=== PATIENT | female | born 1945 | race Caucasian/White ===

== ENCOUNTER 2016-08-05 09:54 | Inpatient (IN) ==
[2016-08-05] MEDS ORDERED: Vancomycin 1,750 MG in D5% in Water 500 ML IVPB ONE (10:10)
[2016-08-05] MEDS ORDERED: 0.9 % Sodium Chloride 1,000 ML IVC ONE (10:10)
[2016-08-05] MEDS ORDERED: Piperacillin/Tazobactam 3.375 GM in D5% in Water (Mini-Bag+) 100 ML IVPB ONE (10:10)
[2016-08-05] MEDS ORDERED: Levofloxacin 750 MG/150 ML 750 MG/150 ML BAG IVPB ONE (10:10)
[2016-08-05 10:31] LABS: Basophils % 0.2 %; Eosinophils # 0.1 K/mcL (0.0-0.6); Eosinophils % 0.7 %; Hematocrit 25.4 % (35.3-44.9); Immature Granulocytes % 0.9 % (0-4); Lymphocytes # 0.8 K/mcL (0.6-4.6); Lymphocytes % 8.6 %; Mean Corpuscular HGB Conc 31.5 g/dL (31.6-35.5); Mean Corpuscular Hemoglobin 30.1 pg (28.0-33.3); Mean Corpuscular Volume 95.5 fL (83.0-100.0); Mean Platelet Volume 8.6 fL (9.4-12.4); Monocytes # 0.4 K/mcL (0.0-1.3); Monocytes % 4.2 %; Neutrophils # 7.5 K/mcL (1.6-8.9); Nucleated Red Blood Cells 0.2 /100 WBC (0); Platelet Count 432 K/mcL (140-400); Red Blood Count 2.66 M/mcL (3.82-4.97); Red Cell Distribution Width 15.6 % (11.5-14.5); Segmented Neutrophils % 85.4 %
[2016-08-05 10:45] LABS: Calcium 8.7 mg/dL (8.6-10.8); Potassium 4.2 mEq/L (3.5-4.5)
--- NOTE | 2016-08-05 10:45 | Emergency Department Note ---
Disposition Clinical Impression: HCAP (healthcare-associated pneumonia) Sepsis Qualifiers: Sepsis type: sepsis due to unspecified organism Qualified Code(s): A41.9 - Sepsis, unspecified organism Respiratory failure Qualifiers: Chronicity: acute on chronic Respiratory failure complication: unspecified whether with hypoxia or hypercapnia Qualified Code(s): J96.20 - Acute and chronic respiratory failure, unspecified whether with hypoxia or hypercapnia Disposition: Admitted As Inpatient Condition: Serious Referrals: Unassigned,Provider [Non-Partnered Physician] - Forms: ED Satisfaction Letter Time of Disposition: 12:44 General Adult HPI - General Chief complaint: ED Shortness of Breath/Dyspnea Stated complaint: Dyspnea Time Seen by Provider: 08/05/16 10:00 Mode of arrival: EMS Limitations: altered mental status Nursing Notes Reviewed: Yes Vital Signs Reviewed: Yes - History of Present Illness HPI Narrative: 71-year-old female with multiple comorbidities presents to the emergency department for evaluation of altered mental status and presumed pneumonia. Patient was recently discharged from the hospital with pneumonia to a local [facility] facility where they found the patient today to be altered, febrile and hypoxic at 87% on 4 L. Patient is currently on antibiotics as an outpatient ([facility]). EMS transported the patient on BiPAP which improved her symptoms. Patient is a very poor historian and does not add much history. She states that she "feels awful" and hurts all over. Exam is remarkable for a ill-appearing elderly female resting in bed in mild respiratory distress. Patient is awake but does not respond to questions appropriately. Lungs are diminished bilaterally with coarse rhonchi noted throughout. Patient's noted to be 95% on 4 L currently. Heart is tachycardic but regular at 102 bpm. Patient was afebrile at 98.7F. Presumed sepsis. Will follow sepsis protocol and patient will likely be admitted back to the hospital for further evaluation. Pt Subjective Complaint: Altered mental status Onset (ago): unknown Pain Scale: 10 Associated symptoms: Reports: cough, fever/chills, shortness of breath, weakness Treatments Prior to Arrival: none - Related Data Home Medications Medication Instructions Recorded Confirmed Cholecalciferol (Vitamin D3) 50,000 unit PO QWEEK 05/30/16 08/05/16 [Vitamin D3] FLUoxetine HCl [Prozac] 20 mg PO DAILY 05/30/16 08/05/16 Gabapentin [Neurontin] 300 mg PO BID 05/30/16 08/05/16 Hydralazine HCl 100 mg PO Q8H 05/30/16 08/05/16 Insulin ASPART [NovoLOG] 1 - 5 unit SQ ACHS 05/30/16 08/05/16 Isosorbide MONOnitrate (24 HR) 30 mg PO DAILY 05/30/16 08/05/16 [Imdur] Aspirin 81 mg PO DAILY 07/10/16 08/05/16 Insulin DETEMIR [Levemir] 50 unit SQ QAM 07/10/16 08/05/16 Insulin DETEMIR [Levemir] 55 unit SQ HS 07/10/16 08/05/16 Atorvastatin Calcium [Lipitor] 80 mg PO DAILY 07/31/16 08/05/16 Budesonide/Formoterol 160/4.5 2 puff IH BID 07/31/16 08/05/16 [Symbicort 160/4.5] ClonazePAM [Klonopin] 1 mg PO TID PRN 07/31/16 08/05/16 Clopidogrel [Plavix] 75 mg PO DAILY 07/31/16 08/05/16 Fluconazole [Diflucan] 100 mg PO DAILY MDD stop 1-4-17 07/31/16 08/05/16 Furosemide [Lasix] 40 mg PO DAILY 07/31/16 08/05/16 Levothyroxine [Synthroid] 25 mcg PO DAILY 07/31/16 08/05/16 Loperamide [Imodium] 2 mg PO Q4HR PRN 07/31/16 08/05/16 Pantoprazole Sodium [Protonix] 40 mg PO DAILY 07/31/16 08/05/16 Saline Nasal [place] [[place] Nasal 2 spray NS TID 07/31/16 08/05/16 [place]] Tiotropium [Spiriva] 18 mcg IH DAILY 07/31/16 08/05/16 Previous Rx's Medication Instructions Recorded CloNIDine HCl [Clonidine HCl] 0.2 mg PO BID #60 tab 06/04/16 Acetaminophen [Tylenol] 650 mg PO Q6HR PRN #0 tablet 07/20/16 Ipratropium/Albuterol Neb [Duoneb] 3 ml IH [id number] inhsol 07/20/16 Tramadol HCl [Ultram] 50 mg PO QID PRN #10 tab 07/20/16 Levofloxacin 500 mg PO DAILY #7 solution MDD 08/03/16 stop 08-11-16 Allergies Allergy/AdvReac Type Severity Reaction Status Date / Time No Known Allergies Allergy Verified 07/24/16 16:19 Limitations: ROS unobtainable due to patients medical condition (Altered mental status) Past Medical History - Past Medical History Medical history: Reports: asthma, CHF, COPD, CVA, diabetes, hypertension, renal disease, other Surgical history: Reports: no surgical history Psychiatric history: Reports: no psych history INSTRUMENTATION AND CONTROLS TECHNICIAN history: Reports: no INSTRUMENTATION AND CONTROLS TECHNICIAN history - Social History Smoking Status: Never smoker Smokeless Tobacco Status: No Alcohol use: Reports: none Drug use: Reports: none Physical Exam - General Limitations: altered mental status General appearance: alert, lethargic, in distress - Head Head exam: atraumatic, normocephalic, normal inspection - Chest Chest inspection: Present: normal inspection, symmetric chest wall rise - Respiratory Respiratory exam: Present: respiratory distress, other (Coarse rhonchi with tachypnea) - Cardiovascular Cardiovascular exam: Present: normal rhythm, tachycardia, normal heart sounds - Abdominal Exam Abdominal exam: Present: soft, Non-Tender. Absent: tenderness, distention, guarding, rebound, rigidity - Neurological Exam Neurological exam: Present: alert - Skin Skin exam: Present: warm, dry, intact, normal color Course - Reevaluation(s) Reevaluation #1: Chest x-ray showing bilateral infiltrates. Patient meets sepsis criteria. She is comfortable and tolerating BiPAP. O2 saturations 97%. Heart rate was 88. Patient will be admitted to the hospital for healthcare associated pneumonia and sepsis. Time: 12:43 Vital Signs Temperature 98.2 F 08/05/16 09:55 Pulse Rate 102 08/05/16 09:55 Respiratory Rate 20 08/05/16 09:55 Blood Pressure 131/90 08/05/16 09:55 O2 Sat by Pulse Oximetry 97 08/05/16 09:55 Temperature 98.2 F 08/05/16 09:55 Pulse Rate 89 08/05/16 11:44 Respiratory Rate 16 08/05/16 11:44 Blood Pressure 125/51 08/05/16 11:44 O2 Sat by Pulse Oximetry 97 08/05/16 11:44 Oxygen Delivery Oxygen Delivery Bipap Medical Decision Making - Medical Records Medical records reviewed: Yes I reviewed the patient's medical records. - Lab Data Lab results reviewed: Yes I reviewed the patient's lab results. Result diagrams: 08/05/16 10:26 08/05/16 10:26 Lab Results 08/05/16 08/05/16 08/05/16 Range/Units 10:26 10:26 10:26 WBC 8.8 (4.3-11.1) K/mcL RBC 2.66 L (3.82-4.97) M/mcL Hgb 8.0 L (11.5-15.4) g/dL Hct 25.4 L (35.3-44.9) % MCV 95.5 (83.0-100.0) fL MCH 30.1 (28.0-33.3) pg MCHC 31.5 L (31.6-35.5) g/dL RDW 15.6 H (11.5-14.5) % Plt Count 432 H (140-400) K/mcL MPV 8.6 L (9.4-12.4) fL Immature Gran % 0.9 (0-4) % Seg Neutrophils % 85.4 % Lymphocytes % 8.6 % Monocytes % 4.2 % Eosinophils % 0.7 % Basophils % 0.2 % Neutrophils # 7.5 (1.6-8.9) K/mcL Lymphocytes # 0.8 (0.6-4.6) K/mcL Monocytes # 0.4 (0.0-1.3) K/mcL Eosinophils # 0.1 (0.0-0.6) K/mcL Basophils # 0.0 (0.0-0.2) K/mcL Nucleated RBCs/100 WBC 0.2 H (0) /100 WBC Sodium 141 (136-145) mEq/L Potassium 4.2 (3.5-4.5) mEq/L Chloride 102 (98-109) mEq/L Carbon Dioxide 29 (19-29) mEq/L BUN 74 H (7-20) mg/dL Creatinine 2.28 H (0.57-1.11) mg/dL Est GFR ( Amer) 26 L (> 60) Est GFR (Non-Af Amer) 21 L (> 60) BUN/Creatinine Ratio 32 H (6-26) Glucose 250 H (70-99) mg/dL Calculated Osmolality 322 H (280-300) Lactic Acid 1.7 (0.5-2.2) mmol/L Calcium 8.7 (8.6-10.8) mg/dL Troponin I (0-0.03) ng/mL Urine Color (Yellow) Urine Clarity (Clear) Urine pH (5.0-8.0) pH Units Ur Specific [place] (1.010-1.025) Urine Protein (Neg-Trace) mg/dL Urine Glucose (UA) (Normal) mg/dL Urine Ketones (Negative) mg/dL Urine Blood (Negative) Urine Nitrite (Negative) Urine Bilirubin (Negative) Urine Urobilinogen (Normal) mg/dL Ur Leukocyte Esterase (Negative) Urine Microscopic RBC (0-3) per hpf Urine Microscopic WBC (0-3) per hpf Ur Squamous Epith Cells (None-Few) per lpf Amorphous Sediment (Few) Urine Bacteria (None-Few) per hpf Urine Mucus (Few) Urine Yeast (None Seen) per hpf Ur Culture Indicated? (NO) 08/05/16 08/05/16 08/05/16 Range/Units 10:26 10:31 12:13 WBC (4.3-11.1) K/mcL RBC (3.82-4.97) M/mcL Hgb (11.5-15.4) g/dL Hct (35.3-44.9) % MCV (83.0-100.0) fL MCH (28.0-33.3) pg MCHC (31.6-35.5) g/dL RDW (11.5-14.5) % Plt Count (140-400) K/mcL MPV (9.4-12.4) fL Immature Gran % (0-4) % Seg Neutrophils % % Lymphocytes % % Monocytes % % Eosinophils % % Basophils % % Neutrophils # (1.6-8.9) K/mcL Lymphocytes # (0.6-4.6) K/mcL Monocytes # (0.0-1.3) K/mcL Eosinophils # (0.0-0.6) K/mcL Basophils # (0.0-0.2) K/mcL Nucleated RBCs/100 WBC (0) /100 WBC Sodium (136-145) mEq/L Potassium (3.5-4.5) mEq/L Chloride (98-109) mEq/L Carbon Dioxide (19-29) mEq/L BUN (7-20) mg/dL Creatinine (0.57-1.11) mg/dL Est GFR ( Amer) (> 60) Est GFR (Non-Af Amer) (> 60) BUN/Creatinine Ratio (6-26) Glucose (70-99) mg/dL Calculated Osmolality (280-300) Lactic Acid 1.2 (0.5-2.2) mmol/L Calcium (8.6-10.8) mg/dL Troponin I 0.12 H* (0-0.03) ng/mL Urine Color Yellow (Yellow) Urine Clarity Cloudy A (Clear) Urine pH 5.5 (5.0-8.0) pH Units Ur Specific [place] 1.013 (1.010-1.025) Urine Protein 100 H (Neg-Trace) mg/dL Urine Glucose (UA) Normal (Normal) mg/dL Urine Ketones Negative (Negative) mg/dL Urine Blood Negative (Negative) Urine Nitrite Negative (Negative) Urine Bilirubin Negative (Negative) Urine Urobilinogen Normal (Normal) mg/dL Ur Leukocyte Esterase Small H (Negative) Urine Microscopic RBC 0-3 (0-3) per hpf Urine Microscopic WBC 5-15 H (0-3) per hpf Ur Squamous Epith Cells Moderate H (None-Few) per lpf Amorphous Sediment Few (Few) Urine Bacteria Moderate H (None-Few) per hpf Urine Mucus Few (Few) Urine Yeast Moderate H (None Seen) per hpf Ur Culture Indicated? YES A (NO) - Radiology Data Radiology results reviewed: Yes I reviewed the patient's radiology results. - EKG Data EKG #1 EKG attestation: Yes I reviewed and interpreted this EKG. Rate: tachycardia Rhythm: NSR [place]/QRS: normal Interpretation: no acute changes Attestation Statement - Attestation Attestation: I examined this patient and my medical decision-making was reviewed with the Resident Physician. I agree with the documented findings, disposition and treatment plan as described except to the extent set forth below. HCAP with severe sepsis, AMS - looks sick. Has CKD with stable creatinine, but elevated BUN/Cr ratio and looks clinically dehydrated. Given IVF along with HCAP abx in the ED. Will discuss with consultants re ICU vs. stepdown.
[2016-08-05 10:46] LABS: Bilirubin,Urine Negative (Negative); Blood,Urine Negative (Negative); Clarity,Urine Cloudy (Clear); Color,Urine Yellow (Yellow); Glucose,Urine (UA) Normal (Normal); Ketones,Urine Negative (Negative); Leukocyte Esterase,Urine Small (Negative); Nitrite,Urine Negative (Negative); PH,Urine 5.5 pH Units (5.0-8.0); Protein,Urine 100 mg/dL (Neg-Trace); Specific Gravity,Urine 1.013 (1.010-1.025); Urobilinogen,Urine Normal (Normal)
[2016-08-05 10:57] LABS: RBC,Urine 0-3 per hpf (0-3)
[2016-08-05 10:58] LABS: Amorphous Sediment,Urine Few (Few); Bacteria,Urine Moderate per hpf (None-Few); Squamous Epithelial Cell,Urine Moderate per lpf (None-Few)
[2016-08-05 10:59] LABS: Mucus,Urine Few (Few); Yeast,Urine Moderate per hpf (None Seen)
[2016-08-05] MEDS ORDERED: 0.9 % Sodium Chloride 1,000 ML IV ONE (11:36)
[2016-08-05] MEDS ORDERED: Acetaminophen 325 MG TABLET PO PRN (13:58)
[2016-08-05] MEDS ORDERED: Naloxone 0.4 MG/ML INJ IVP PRN (13:58)
[2016-08-05] MEDS ORDERED: clonazePAM 1 MG TABLET PO PRN (14:04)
[2016-08-05] MEDS ORDERED: hydrALAZINE 25 MG TABLET PO SCH (14:15)
[2016-08-05] MEDS ORDERED: D5% in Water 1,000 ML IV PRN (14:29)
[2016-08-05] MEDS ORDERED: *HR* Dextrose 50 % in Water (Syg) 50 ML SYRINGE IVP PRN (14:29)
[2016-08-05] MEDS ORDERED: Dextrose Gel 15 GM PO PRN ×2 (14:29)
--- NOTE | 2016-08-05 14:52 | Internal Med History&Physical ---
Date of Encounter: 08/05/16 Time of Encounter: 13:30 Assessment and Plan (1) Acute on chronic respiratory failure with hypoxemia Current visit: Yes Status: Acute 1 respiratory decline is multifactorial .patient was hypoxic on presentation with SPO2 87% was placed on BiPAP SPO2 improved to 97%. She has a past history of COPD and is oxygen dependent and recent treatment for H CAP as well as she has standing history of chronic diastolic heart failure. We will continue with BiPAP and titrate to maintain SPO2 greater than 92% 2 continue with antibiotics and breathing treatments will add Lasix IV to diurese (2) Acute on chronic diastolic CHF (congestive heart failure) Current visit: No Status: Acute 1 clinically the patient appears fluid overloaded-she has +2 pitting edema to lower extremities. 1 edema to upper extremities she is hypoxic -we will stop oral Lasix and start on IV Lasix twice a day 2 we will monitor intake and output daily weights 3 place patient on fluid restriction 4 low sodium diet (3) HCAP (healthcare-associated pneumonia) Current visit: Yes Status: Acute 1 patient was recently treated for H. She resides in a senior living continues to have symptoms of cough fever hypoxia. Blood cultures have been obtained we will obtain sputum culture will initiate vancomycin and Zosyn and Levaquin 2 bronchodilators 3 oxygen to maintain SPO2 greater 92% 4 incentive spirometry (4) Sepsis Current visit: Yes 1 patient presented with low SPO2 tachycardia altered mentation-possible source pneumonia 2 blood cultures obtained empirically started on vancomycin and Levaquin for HCAP Coverage 3 we will monitor CBC we will obtain sputum and urine cultures (5) Anemia Current visit: No Status: Acute 1 presently stable hemoglobin 8 . We will monitor CBC and transfuse as needed Qualifiers: Anemia type: unspecified type Qualified Code(s): D64.9 - Anemia, unspecified (6) COPD (chronic obstructive pulmonary disease) Current visit: No Status: Acute 1 we will continue with oxygen and bronchodilators Qualifiers: COPD type: unspecified COPD Qualified Code(s): J44.9 - Chronic obstructive pulmonary disease, unspecified (7) DVT prophylaxis Current visit: No Status: Acute 1 heparin subcutaneous (8) Hypertension Current visit: No Status: Acute 1 presently stable we will continue with hydralazine and clonidine goal is to maintain systolic less than 140 Qualifiers: Hypertension type: essential hypertension Qualified Code(s): I10 - Essential (primary) hypertension (9) Type 2 diabetes mellitus with diabetic chronic kidney disease Current visit: No Status: Acute 1 Accu-Cheks before meals at bedtime continue with Lantus insulin scale coverage maintain postprandial less than 180 2 diabetic diet Qualifiers: Diabetes mellitus longterm insulin use: with longterm use Chronic kidney disease stage: stage 4 (severe) Qualified Code(s): E11.22 - Type 2 diabetes mellitus with diabetic chronic kidney disease; N18.4 - Chronic kidney disease, stage 4 (severe); Z79.4 - intermediate (current) use of insulin (10) CKD (chronic kidney disease) stage 4, GFR 15-29 ml/min Current visit: No Status: Chronic 1 patient's creatinine is 2.28. Start this is close to her baseline which is around 2. We will continue to monitor creatinine 2 avoid nephrotoxins really dose antibiotics 3 monitor intake and output 4 daily weights Internal Medicine - H&P: HPI Chief complaint: Dyspnea Admitted From: Long-term Nursing Facility Plans for Post Hospital Care: Transfer [facility] History of present illness: Ms. Dsouza is a 71 year old female past history see [facility] for hypertension diabetes type 2 CHF COPD oxygen dependent hypothyroid, anemia. The patient was just recently admitted to this facility and was discharged on August 03 after pain treated for healthcare acquired pneumonia as well as anemia. She was transferred back to the senior living in which she resides and was found by the staff today with altered mental status febrile and hypoxic with SPO2 87% on 4 L. Patient was currently receiving oral antibiotics Levaquin for continued HCAP Treatment. She was transported to the hospital by EMS on BiPAP. Upon arrival to the ED her SPO2 had improved to 97%. According to ER records the patient did appear to be in mild respiratory distress she was awake however did not respond to questions appropriately.. She was tachycardic on presentation heart rate of 102 she was afebrile 98.7. Sepsis protocol was followed blood cultures were obtained patient was initiated on vancomycin ,Levaquin and Zosyn.. Her white count was 8.8 chest extremities reveal continued pneumonia she was admitted for further workup and evaluation. Presently the assessment patient appears weak she is on BiPAP sats 97%. Wants BiPAP removed patient really drops down to 90% she is dyspneic on conversation and pulses to catch her breath. Patient states that since she was discharged she continued to feel weak this individual to eat and was experiencing increasing cough , shortness of breath and fever . She denies any sputum production at this time. She denies any chest pain abdominal pain nausea vomiting or diarrhea. At this time patient appears to be hemodynamically stable while on BiPAP Reviewed case with Dr Luna who agrees with case Past Med Surg Social Fam HX - Past Medical History Medical history: asthma, CHF, COPD, CVA, diabetes, hypertension, renal disease, other Psychiatric history: no psych history - Past Surgical History Surgical History: no surgical history - Social History Smoking Status: Never smoker Smokeless Tobacco Status: No Alcohol use: none Drug use: none - Family History Father Living Status: Hx Family Cancer: Yes Mother Living Status: Hx Family Cardiac Disorders: No Hx Family Respiratory Disorders: No Hx Family Cancer: Yes Hx Family GI Disorders: No Hx Family Endocrine Disorder: No Hx Family Neuromuscular Disorders: No Hx Family Neurologic Disorders: No Hx Family HEENT Disorders: No Hx Family Autoimmune Disorders: No Internal Medicine - H&P: Meds Cholecalciferol (Vitamin D3) [Vitamin D3] 50,000 unit PO QWEEK 05/30/16 [History ] FLUoxetine HCl [Prozac] 20 mg PO DAILY 05/30/16 [History] Gabapentin [Neurontin] 300 mg PO BID 05/30/16 [History] Hydralazine HCl 100 mg PO Q8H 05/30/16 [History] Insulin ASPART [NovoLOG] 1 - 5 unit SQ ACHS 05/30/16 [History] Isosorbide MONOnitrate (24 HR) [Imdur] 30 mg PO DAILY 05/30/16 [History] CloNIDine HCl [Clonidine HCl] 0.2 mg PO BID #60 tab 06/04/16 [Rx] Aspirin 81 mg PO DAILY 07/10/16 [History] Insulin DETEMIR [Levemir] 50 unit SQ QAM 07/10/16 [History] Insulin DETEMIR [Levemir] 55 unit SQ HS 07/10/16 [History] Acetaminophen [Tylenol] 650 mg PO Q6HR PRN #0 tablet 07/20/16 [Rx] Ipratropium/Albuterol Neb [Duoneb] 3 ml IH [id number] inhsol 07/20/16 [Rx] Tramadol HCl [Ultram] 50 mg PO QID PRN #10 tab 07/20/16 [Rx] Atorvastatin Calcium [Lipitor] 80 mg PO DAILY 07/31/16 [History] Budesonide/Formoterol 160/4.5 [Symbicort 160/4.5] 2 puff IH BID 07/31/16 [ History] ClonazePAM [Klonopin] 1 mg PO TID PRN 07/31/16 [History] Clopidogrel [Plavix] 75 mg PO DAILY 07/31/16 [History] Fluconazole [Diflucan] 100 mg PO DAILY MDD stop 1-4-17 07/31/16 [History] Furosemide [Lasix] 40 mg PO DAILY 07/31/16 [History] Levothyroxine [Synthroid] 25 mcg PO DAILY 07/31/16 [History] Loperamide [Imodium] 2 mg PO Q4HR PRN 07/31/16 [History] Pantoprazole Sodium [Protonix] 40 mg PO DAILY 07/31/16 [History] Saline Nasal [place] [[place] Nasal [place]] 2 spray NS TID 07/31/16 [History] Tiotropium [Spiriva] 18 mcg IH DAILY 07/31/16 [History] Levofloxacin 500 mg PO DAILY #7 solution MDD stop 1-02-1808/03/16 [Rx] Allergies No Known Allergies Allergy (Verified 07/24/16 16:19) All Systems PM: A 10-system review of systems was performed and is negative for pertinent findings except as documented above in the HPI. - Constitutional Constitutional: fatigue, malaise, weakness - Cardiovascular Cardiovascular ROS IM: dyspnea, edema - Respiratory Respiratory: cough, dyspnea - Gastrointestinal Gastrointestinal: no abdominal pain, no diarrhea, no hematemesis, no hematochezia, no melena, no nausea, no vomiting - Genitourinary Genitourinary: no change in urinary stream, no dysuria, no flank pain, no hematuria - Musculoskeletal Musculoskeletal ROS IM: no numbness, no tingling - Integumentary Integumentary IM: no rash, no unusual bruising - Neurological Neurological ROS: no confusion, no convulsions, no focal weakness, no numbness, no tingling, no tremor(s) - Constitutional Vitals: Temp Pulse Resp BP Pulse Ox 98.2 F 86 16 136/95 97 08/05/16 13:39 08/05/16 13:14 08/05/16 13:39 08/05/16 13:39 08/05/16 13:14 General appearance: Present: A&O X 2, morbidly obese, answers questions appropriately Exam: Patient appears weak and chronically ill - Head Head exam: Present: atraumatic, normocephalic - Neck Neck exam general surgery: Present: supple, trachea midline. Absent: lymphadenopathy - Respiratory Respiratory exam: Present: respiratory distress, rhonchi. Absent: accessory muscle use, rales, wheezes Additional comments: Mild respiratory distress with scattered coarse rhonchi throughout - Cardiovascular Cardiovascular exam: Present: RRR, +S1, +S2. Absent: diastolic murmur, gallop, rubs, systolic murmur - GI/Abdominal GI/Abdominal exam: Present: normal bowel sounds, soft, no peritoneal signs. Absent: distended, tenderness - Extremities Exam Extremities exam: Present: pedal edema, warm, radial pulses palpable and symetrical. Absent: calf tenderness, cyanotic Additional comments: +2 pitting edema up to ankles, +1 pitting edema to hands bilaterally - Neurological Exam Neurological exam: Present: alert, CN II-XII intact, no focal deficits. Absent : pronater drift, facial droop, speech deficit Additional comments: Oriented to name and place - Skin Skin exam: Present: dry, intact Additional comments: Ecchymosis noted to abdomen Internal Med - H&P Results - Labs CBC & Chem 7: 08/05/16 10:26 08/05/16 10:26 - Diagnostic Studies Chest x-ray Additional comments: Per radiology report bilateral infiltrates left side greater than right concerning for pneumonia
[2016-08-05] MEDS: Cholecalciferol (D-3) 1,000 UNIT TABLET PO SCH (15:18)
[2016-08-05] MEDS: Furosemide 40 MG/4 ML VIAL IVP SCH ×2 (15:18→16:15)
[2016-08-05] MEDS: Saline Nasal Spray 44 ML BOTTLE NS SCH ×2 (15:35→21:20)
[2016-08-05] MEDS: Ipratropium/Albuterol Neb 3 ML IH SCH ×2 (15:43→21:08)
[2016-08-05] MEDS: hydrALAZINE 25 MG TABLET PO SCH (16:16)
[2016-08-05] MEDS: Piperacillin/Tazobactam 3.375 GM in D5% in Water (Mini-Bag+) 100 ML IVPB SCH (16:40)
[2016-08-05] MEDS: *HR* Heparin 5,000 UNIT/ML VIAL SQ SCH (16:40)
[2016-08-05] MEDS: Insulin LISPRO 300 UNITS/3 ML VIAL SQ SCH ×2 (17:54→21:22)
[2016-08-05] MEDS ORDERED: cloNIDine HCl 0.1 MG TABLET PO SCH (21:00)
[2016-08-05] MEDS ORDERED: INSULIN DETEMIR 55 UNIT SQ SCH (21:00)
[2016-08-05] MEDS: Budesonide/Formoterol 160/4.5 MDI IH SCH (21:08)
[2016-08-05] MEDS: cloNIDine HCl 0.1 MG TABLET PO SCH (21:19)
[2016-08-05] MEDS: Gabapentin 300 MG CAPSULE PO SCH (21:19)
[2016-08-05] MEDS: Insulin DETEMIR 100 UNIT/ML X5UNITS SQ SCH (21:31)
[2016-08-06] MEDS: Piperacillin/Tazobactam 3.375 GM in D5% in Water (Mini-Bag+) 100 ML IVPB SCH ×3 (00:52→16:24)
[2016-08-06] MEDS: hydrALAZINE 25 MG TABLET PO SCH ×3 (00:56→16:25)
[2016-08-06] MEDS: Ipratropium/Albuterol Neb 3 ML IH SCH ×2 (04:09→10:41)
[2016-08-06 05:02] LABS: Calcium 8.5 mg/dL (8.6-10.8); Potassium 4.2 mEq/L (3.5-4.5)
[2016-08-06 05:20] LABS: Hematocrit 24.4 % (35.3-44.9); Hemoglobin 7.3 g/dL (11.5-15.4); Immature Granulocytes % 1.4 % (0-4); Mean Corpuscular HGB Conc 29.9 g/dL (31.6-35.5); Mean Corpuscular Hemoglobin 29.3 pg (28.0-33.3); Neutrophils # 5.1 K/mcL (1.6-8.9); Platelet Count 443 K/mcL (140-400); Red Blood Count 2.49 M/mcL (3.82-4.97); Red Cell Distribution Width 15.5 % (11.5-14.5); Segmented Neutrophils % 79.5 %
[2016-08-06 05:21] LABS: Basophils % 0.3 %; Eosinophils # 0.1 K/mcL (0.0-0.6); Eosinophils % 2.2 %; Lymphocytes # 0.8 K/mcL (0.6-4.6); Lymphocytes % 12.6 %; Monocytes # 0.3 K/mcL (0.0-1.3)
[2016-08-06] MEDS: *HR* Heparin 5,000 UNIT/ML VIAL SQ SCH ×2 (05:45→17:28)
[2016-08-06] MEDS ORDERED: Vancomycin (wt based) 1,000 MG VIAL IVPB SCH (09:00)
[2016-08-06] MEDS ORDERED: NON-FORMULARY MEDICATION 1 EACH EACH (Insulin Detemir 50 UNIT) SQ SCH (09:00)
[2016-08-06] MEDS ORDERED: Levofloxacin 750 MG/150 ML 750 MG/150 ML BAG IVPB SCH (09:00)
[2016-08-06] MEDS: Aspirin 81 MG TAB.CHEW PO SCH (09:02)
[2016-08-06] MEDS: Levothyroxine 25 MCG TABLET PO SCH (09:02)
[2016-08-06] MEDS: Cholecalciferol (D-3) 1,000 UNIT TABLET PO SCH (09:02)
[2016-08-06] MEDS: FLUoxetine 20 MG CAPSULE PO SCH (09:02)
[2016-08-06] MEDS: Gabapentin 300 MG CAPSULE PO SCH ×2 (09:02→20:58)
[2016-08-06] MEDS: Insulin DETEMIR 100 UNIT/ML X5UNITS SQ SCH ×2 (09:03→20:58)
[2016-08-06] MEDS: Insulin LISPRO 300 UNITS/3 ML VIAL SQ SCH ×4 (09:12→20:59)
[2016-08-06] MEDS: Saline Nasal Spray 44 ML BOTTLE NS SCH ×3 (09:13→20:58)
[2016-08-06] MEDS: Furosemide 40 MG/4 ML VIAL IVP SCH ×2 (10:09→16:24)
[2016-08-06] MEDS: Isosorbide MONOnitrate (24 HR) 30 MG TAB.ER.24H PO SCH (10:09)
[2016-08-06] MEDS: cloNIDine HCl 0.1 MG TABLET PO SCH ×2 (10:09→20:58)
[2016-08-06] MEDS: Budesonide/Formoterol 160/4.5 MDI IH SCH ×2 (10:41→21:46)
[2016-08-06] MEDS: Tiotropium 18 MCG inhalation IH SCH (10:41)
[2016-08-06] MEDS: *HR* HYDROcodone/Acet 5/325 mg TABLET PO PRN (11:44)
[2016-08-06] MEDS ORDERED: Aminoglycoside Consult 1 EACH MC ONE (12:30)
[2016-08-06] MEDS ORDERED: Ipratropium/Albuterol Neb 3 ML IH PRN (13:03)
--- NOTE | 2016-08-06 14:33 | Electrocardiograph Report ---
[facility] Test Date: 2016-08-05 Pat Name: Violeta Dsouza Department: [id number] Room: 2A33 Gender: F Law Professor: : [id number] Requested By: Gurjit Chen Order Number: [id number] Reading MD: Willis Johnson MD Measurements Intervals [place] Rate: 99 P: -66 PA: 197 QRS: 16 QRSD: 100 T: 142 QT: 354 QTc: 411 Interpretive Statements SINUS RHYTHM WITH OCCASIONAL SUPRAVENTRICULAR PREMATURE COMPLEXES ANTERIOR MYOCARDIAL INFARCTION, PROBABLY OLD Electronically Signed On 08-06-16 14:32:58 EST by Willis Johnson MD
--- NOTE | 2016-08-06 15:42 | Internal Med Progress Note ---
Date of Encounter: 08/06/16 Time of Encounter: 15:39 - Assessment and plan (1) Acute on chronic respiratory failure with hypoxemia Current Visit: Yes Status: Acute Assessment and plan: possible 2/2 HCAP that has never resolved, it is likely that she keeps aspirating as she is always lying in the bed. will continue the IV antibiotics for now, may also have some component of volume overload when she came in however now she does not look like she has volume overload. will also continue the IV lasix for now. monitor sats. (2) HCAP (healthcare-associated pneumonia) Current Visit: Yes Status: Acute Assessment and plan: cxr shows persistent and multifocal pneumonia. will continue IV antibiotics for now, chest physiotherapy, will follow sputum and blood cx as well. aspiration precautions, speech saw the patient and placed on mechanically altered diet. (3) Anemia of chronic disease Current Visit: No Status: Acute Assessment and plan: has chronic anemia with normal MCV, most likely anemia of chronic disease 2/2 CKD. has had GI eval in the past and has had EGD that showed no active bleeding. bleeding was most likely supposed to be 2/2 ENT causes which has now resolved , had a recent ENT eval. (4) COPD (chronic obstructive pulmonary disease) Current Visit: No Status: Acute Assessment and plan: not in exacerbation. Qualifiers: COPD type: unspecified COPD Qualified Code(s): J44.9 - Chronic obstructive pulmonary disease, unspecified (5) Diastolic CHF, chronic Current Visit: No Status: Chronic Assessment and plan: she may have some component of diastolic heart failure. has b/l pitting edema with elevated BNP. will continue the 40 Iv BID lasix. will keep on fluid restriction diet. - Time Spent With Patient 25 - 35 minutes - Subjective Interval history: Patient seen at the bedside, denies any complaints today. Reports that she was short of breath when she came in. Now appears comfortable and lying in bed without any distress. she needs bedside PT/OT . - Constitutional Vitals: Temp Pulse Resp BP Pulse Ox 97.4 F L 76 16 118/36 95 08/06/16 11:14 08/06/16 11:14 08/06/16 11:14 08/06/16 11:14 08/06/16 11:14 General appearance: Present: A&O X 2, morbidly obese, answers questions appropriately Exam: General appearance: no acute distress ENT: oropharynx moist Neck: supple Effort: normal Auscultation: bilateral: diminished breath sounds, no wheezing, mild b/l basal creptns Cardiovascular: regular rate and rhythm Gastrointestinal: normoactive bowel sounds normal mental status, non-focal exam Internal Medicine: Result - Labs CBC & Chem 7: 08/06/16 04:03 08/06/16 04:03 Labs: Short CBC 08/06/16 Range/Units 04:03 WBC 6.4 (4.3-11.1) K/mcL Hgb 7.3 L (11.5-15.4) g/dL Hct 24.4 L (35.3-44.9) % Plt Count 443 H (140-400) K/mcL Neutrophils # 5.1 (1.6-8.9) K/mcL BMP 08/06/16 04:03 Sodium 141 Potassium 4.2 Chloride 104 Carbon Dioxide 27 BUN 70 H Creatinine 2.18 H Glucose 146 H Calcium 8.5 L Cardiac Enzymes 08/05/16 08/05/16 Range/Units 16:48 22:31 Troponin I 0.13 H* 0.11 H* (0-0.03) ng/mL Consult Discharge Plan - Plan Referrals: NO,PCP [Primary Care Provider] - (Pt is ECF/Signatures )
[2016-08-07] MEDS: hydrALAZINE 25 MG TABLET PO SCH ×4 (00:14→17:05)
[2016-08-07] MEDS: Piperacillin/Tazobactam 3.375 GM in D5% in Water (Mini-Bag+) 100 ML IVPB SCH ×2 (00:14→09:38)
[2016-08-07] MEDS: Ondansetron 4 MG/2 ML VIAL IVP PRN (05:03)
[2016-08-07 07:29] LABS: Basophils % 0.4 %; Eosinophils # 0.2 K/mcL (0.0-0.6); Eosinophils % 2.1 %; Hematocrit 25.5 % (35.3-44.9); Hemoglobin 7.8 g/dL (11.5-15.4); Immature Granulocytes % 1.1 % (0-4); Lymphocytes # 0.8 K/mcL (0.6-4.6); Lymphocytes % 9.5 %; Mean Corpuscular HGB Conc 30.6 g/dL (31.6-35.5); Mean Corpuscular Hemoglobin 29.7 pg (28.0-33.3); Monocytes # 0.4 K/mcL (0.0-1.3); Monocytes % 4.4 %; Neutrophils # 6.5 K/mcL (1.6-8.9); Nucleated Red Blood Cells 0.3 /100 WBC (0); Platelet Count 483 K/mcL (140-400); Red Blood Count 2.63 M/mcL (3.82-4.97); Red Cell Distribution Width 15.5 % (11.5-14.5); Segmented Neutrophils % 82.5 %
[2016-08-07 07:37] LABS: Potassium 4.1 mEq/L (3.5-4.5)
[2016-08-07] MEDS: Tiotropium 18 MCG inhalation IH SCH (07:40)
[2016-08-07] MEDS: Budesonide/Formoterol 160/4.5 MDI IH SCH ×2 (07:40→20:23)
[2016-08-07] MEDS: *HR* Heparin 5,000 UNIT/ML VIAL SQ SCH ×2 (07:51→17:05)
[2016-08-07] MEDS: Gabapentin 300 MG CAPSULE PO SCH ×2 (09:36→23:35)
[2016-08-07] MEDS: Insulin LISPRO 300 UNITS/3 ML VIAL SQ SCH ×4 (09:36→23:35)
[2016-08-07] MEDS: Furosemide 40 MG/4 ML VIAL IVP SCH ×2 (09:36→17:05)
[2016-08-07] MEDS: Aspirin 81 MG TAB.CHEW PO SCH (09:36)
[2016-08-07] MEDS: FLUoxetine 20 MG CAPSULE PO SCH (09:37)
[2016-08-07] MEDS: Cholecalciferol (D-3) 1,000 UNIT TABLET PO SCH (09:37)
[2016-08-07] MEDS: Isosorbide MONOnitrate (24 HR) 30 MG TAB.ER.24H PO SCH (09:37)
[2016-08-07] MEDS: Levothyroxine 25 MCG TABLET PO SCH (09:37)
[2016-08-07] MEDS: cloNIDine HCl 0.1 MG TABLET PO SCH ×3 (09:37→23:35)
[2016-08-07] MEDS: Levofloxacin 750 MG/150 ML 750 MG/150 ML BAG IVPB SCH (09:41)
[2016-08-07] MEDS: Insulin DETEMIR 100 UNIT/ML X5UNITS SQ SCH (10:01)
[2016-08-07] MEDS: Saline Nasal Spray 44 ML BOTTLE NS SCH ×3 (10:02→23:35)
--- NOTE | 2016-08-07 15:29 | Internal Med Progress Note ---
Date of Encounter: 08/07/16 Time of Encounter: 15:21 - Assessment and plan (1) Acute on chronic respiratory failure with hypoxemia Current Visit: Yes Status: Acute Assessment and plan: possible 2/2 HCAP that has never resolved, she does not have fever or leucocytosis. will continue the IV levofloxacin for now and stop the vanco and zosyn, may also have some component of volume overload when she came in however now she does not look like she has volume overload. will change lasix to home dose. monitor sats. (2) HCAP (healthcare-associated pneumonia) Current Visit: Yes Status: Acute Assessment and plan: cxr shows persistent and multifocal pneumonia. its persistent since last admission, hence will stop vanco and zosyn, chest physiotherapy, will follow sputum and blood cx as well. aspiration precautions, speech saw the patient and placed on mechanically altered diet. (3) Anemia of chronic disease Current Visit: No Status: Acute Assessment and plan: has chronic anemia with normal MCV, most likely anemia of chronic disease 2/2 CKD. has had GI eval in the past and has had EGD that showed no active bleeding. bleeding was most likely supposed to be 2/2 ENT causes which has now resolved , had a recent ENT eval. (4) COPD (chronic obstructive pulmonary disease) Current Visit: No Status: Acute Assessment and plan: not in exacerbation. Qualifiers: COPD type: unspecified COPD Qualified Code(s): J44.9 - Chronic obstructive pulmonary disease, unspecified (5) Diastolic CHF, chronic Current Visit: No Status: Chronic Assessment and plan: she may have some component of diastolic heart failure. has b/l pitting edema with elevated BNP, does not have acute pulmonary edema now. will keep lasix 40 mg daily. will keep on fluid restriction diet. - Time Spent With Patient 25 - 35 minutes - Subjective Interval history: Patient seen at the bedside, denies any complaints today. Now appears comfortable and lying in bed without any distress. she needs bedside PT/OT . - Constitutional Vitals: Temp Pulse Resp BP Pulse Ox 97.3 F L 80 19 142/41 100 08/07/16 11:30 08/07/16 11:30 08/07/16 11:30 08/07/16 11:30 08/07/16 14:32 General appearance: Present: A&O X 2, morbidly obese, answers questions appropriately Exam: General appearance: no acute distress ENT: oropharynx moist Neck: supple Effort: normal Auscultation: bilateral: diminished breath sounds, no wheezing, mild b/l basal creptns Cardiovascular: regular rate and rhythm Gastrointestinal: normoactive bowel sounds normal mental status, non-focal exam Internal Medicine: Result - Labs CBC & Chem 7: 08/07/16 07:05 08/07/16 07:05 Labs: Short CBC 08/07/16 Range/Units 07:05 WBC 7.9 (4.3-11.1) K/mcL Hgb 7.8 L (11.5-15.4) g/dL Hct 25.5 L (35.3-44.9) % Plt Count 483 H (140-400) K/mcL Neutrophils # 6.5 (1.6-8.9) K/mcL BMP 08/07/16 07:05 Sodium 140 Potassium 4.1 Chloride 102 Carbon Dioxide 27 BUN 68 H Creatinine 2.03 H Glucose 45 L Calcium 9.0 Consult Discharge Plan - Plan Referrals: NO,PCP [Primary Care Provider] - (Pt is ECF/Signatures )
[2016-08-07] MEDS ORDERED: Insulin DETEMIR 100 UNIT/ML X5UNITS SQ SCH (21:00)
[2016-08-08] MEDS: hydrALAZINE 25 MG TABLET PO SCH ×3 (01:23→16:09)
[2016-08-08] MEDS: *HR* Heparin 5,000 UNIT/ML VIAL SQ SCH ×2 (05:24→17:09)
[2016-08-08] MEDS: Insulin LISPRO 300 UNITS/3 ML VIAL SQ SCH ×3 (08:15→17:03)
[2016-08-08] MEDS: Budesonide/Formoterol 160/4.5 MDI IH SCH ×2 (08:18→22:00)
[2016-08-08] MEDS: Tiotropium 18 MCG inhalation IH SCH (08:18)
[2016-08-08 08:19] LABS: Basophils % 0.4 %; Eosinophils # 0.1 K/mcL (0.0-0.6); Eosinophils % 2.7 %; Hematocrit 23.1 % (35.3-44.9); Hemoglobin 7.1 g/dL (11.5-15.4); Immature Granulocytes % 1.6 % (0-4); Lymphocytes # 0.8 K/mcL (0.6-4.6); Mean Corpuscular HGB Conc 30.7 g/dL (31.6-35.5); Mean Corpuscular Volume 97.5 fL (83.0-100.0); Mean Platelet Volume 8.6 fL (9.4-12.4); Monocytes # 0.3 K/mcL (0.0-1.3); Monocytes % 5.7 %; Neutrophils # 3.8 K/mcL (1.6-8.9); Platelet Count 367 K/mcL (140-400); Red Blood Count 2.37 M/mcL (3.82-4.97); Red Cell Distribution Width 15.4 % (11.5-14.5); Segmented Neutrophils % 74.6 %
[2016-08-08 08:46] LABS: Calcium 8.7 mg/dL (8.6-10.8); Potassium 4.2 mEq/L (3.5-4.5)
[2016-08-08] MEDS: Furosemide 40 MG/4 ML VIAL IVP SCH ×2 (09:15→16:09)
[2016-08-08] MEDS: Isosorbide MONOnitrate (24 HR) 30 MG TAB.ER.24H PO SCH (09:16)
[2016-08-08] MEDS: Cholecalciferol (D-3) 1,000 UNIT TABLET PO SCH (09:16)
[2016-08-08] MEDS: Levothyroxine 25 MCG TABLET PO SCH (09:16)
[2016-08-08] MEDS: cloNIDine HCl 0.1 MG TABLET PO SCH ×2 (09:16→20:54)
[2016-08-08] MEDS: Gabapentin 300 MG CAPSULE PO SCH ×2 (09:16→20:54)
[2016-08-08] MEDS: FLUoxetine 20 MG CAPSULE PO SCH (09:16)
[2016-08-08] MEDS: Aspirin 81 MG TAB.CHEW PO SCH (09:16)
[2016-08-08] MEDS: Saline Nasal Spray 44 ML BOTTLE NS SCH ×3 (09:17→20:56)
[2016-08-08] MEDS: Insulin DETEMIR 100 UNIT/ML X5UNITS SQ SCH ×2 (09:24→20:55)
[2016-08-08] MEDS ORDERED: 0.9 % Sodium Chloride 500 ML ONE (13:09)
--- NOTE | 2016-08-08 17:05 | Internal Med Progress Note ---
Date of Encounter: 08/08/16 Time of Encounter: 17:03 - Assessment and plan (1) Acute on chronic respiratory failure with hypoxemia Current Visit: Yes Status: Acute Assessment and plan: possible 2/2 HCAP that has never resolved, she does not have fever or leucocytosis. will continue the IV levofloxacin for now , may also have some component of volume overload when she came in however now she does not look like she has volume overload. will change lasix to home dose. monitor sats. (2) HCAP (healthcare-associated pneumonia) Current Visit: Yes Status: Acute Assessment and plan: cxr shows persistent and multifocal pneumonia. its persistent since last admission, hence will stop vanco and zosyn, chest physiotherapy, will follow sputum and blood cx as well. aspiration precautions, speech saw the patient and placed on mechanically altered diet. (3) Anemia of chronic disease Current Visit: No Status: Acute Assessment and plan: has chronic anemia with normal MCV, most likely anemia of chronic disease 2/2 CKD. has had GI eval in the past and has had EGD that showed no active bleeding. bleeding was most likely supposed to be 2/2 ENT causes which has now resolved , had a recent ENT eval. reports that she feels very weak, will transfuse 1 unit, hb at 7.1 today. (4) COPD (chronic obstructive pulmonary disease) Current Visit: No Status: Acute Assessment and plan: not in exacerbation. Qualifiers: COPD type: unspecified COPD Qualified Code(s): J44.9 - Chronic obstructive pulmonary disease, unspecified (5) Diastolic CHF, chronic Current Visit: No Status: Chronic Assessment and plan: she may have some component of diastolic heart failure. has b/l pitting edema with elevated BNP, does not have acute pulmonary edema now. will keep lasix 40 mg daily. will keep on fluid restriction diet. - Time Spent With Patient 25 - 35 minutes - Subjective Interval history: Patient seen at the bedside, reports that she feels very weak. chrissy in bed without any distress, non compliant to rehab and keeps lying in the bed, very hard to get her up to the side of the bed, she says ever since she broke her left leg, she has been bed bound and has reportedly found to have refused rehab therapy. she needs bedside PT/OT, plan to get her to the side of bed today with support. - Constitutional Vitals: Temp Pulse Resp BP Pulse Ox 98.2 F 87 16 124/69 91 L 08/08/16 15:48 08/08/16 15:48 08/08/16 15:48 08/08/16 15:48 08/08/16 15:48 General appearance: Present: A&O X 3, morbidly obese, answers questions appropriately Exam: neck- supple chest- b/l decreased breath sounds at the bases. CVS-s1 and s2, no m/r/g abd-soft, non tender , bs are present ext-b/l mild lower leg edema neuro-alert and awake, no focal neuro defecits. musculo- unable to raise her left leg, no swelling or redness of the knee joint. Internal Medicine: Result - Labs CBC & Chem 7: 08/08/16 08:09 08/08/16 08:09 Labs: Short CBC 08/08/16 Range/Units 08:09 WBC 5.1 (4.3-11.1) K/mcL Hgb 7.1 L (11.5-15.4) g/dL Hct 23.1 L (35.3-44.9) % Plt Count 367 (140-400) K/mcL Neutrophils # 3.8 (1.6-8.9) K/mcL BMP 08/08/16 08:09 Sodium 138 Potassium 4.2 Chloride 101 Carbon Dioxide 29 BUN 66 H Creatinine 2.03 H Glucose 68 L Calcium 8.7 Consult Discharge Plan - Plan Referrals: NO,PCP [Primary Care Provider] - (Pt is ECF/Signatures )
[2016-08-09] MEDS: Insulin LISPRO 300 UNITS/3 ML VIAL SQ SCH ×5 (02:34→22:29)
[2016-08-09] MEDS: hydrALAZINE 25 MG TABLET PO SCH ×3 (02:35→17:09)
[2016-08-09] MEDS: *HR* Heparin 5,000 UNIT/ML VIAL SQ SCH ×2 (06:30→17:08)
[2016-08-09 06:33] LABS: Basophils % 0.4 %; Eosinophils # 0.2 K/mcL (0.0-0.6); Eosinophils % 2.2 %; Hemoglobin 7.6 g/dL (11.5-15.4); Immature Granulocytes % 1.9 % (0-4); Lymphocytes # 1.1 K/mcL (0.6-4.6); Lymphocytes % 16.8 %; Mean Corpuscular HGB Conc 31.7 g/dL (31.6-35.5); Mean Corpuscular Volume 94.9 fL (83.0-100.0); Mean Platelet Volume 8.9 fL (9.4-12.4); Monocytes # 0.3 K/mcL (0.0-1.3); Monocytes % 4.8 %; Nucleated Red Blood Cells 0.3 /100 WBC (0); Platelet Count 391 K/mcL (140-400); Red Blood Count 2.53 M/mcL (3.82-4.97); Red Cell Distribution Width 16.4 % (11.5-14.5); Segmented Neutrophils % 73.9 %
[2016-08-09 06:49] LABS: Calcium 8.5 mg/dL (8.6-10.8); Potassium 4.1 mEq/L (3.5-4.5)
[2016-08-09] MEDS: Gabapentin 300 MG CAPSULE PO SCH ×2 (08:55→22:31)
[2016-08-09] MEDS: Cholecalciferol (D-3) 1,000 UNIT TABLET PO SCH (08:55)
[2016-08-09] MEDS: Levothyroxine 25 MCG TABLET PO SCH (08:55)
[2016-08-09] MEDS: FLUoxetine 20 MG CAPSULE PO SCH (08:55)
[2016-08-09] MEDS: Aspirin 81 MG TAB.CHEW PO SCH (08:55)
[2016-08-09] MEDS: Furosemide 40 MG/4 ML VIAL IVP SCH ×2 (08:56→17:08)
[2016-08-09] MEDS: Isosorbide MONOnitrate (24 HR) 30 MG TAB.ER.24H PO SCH (08:56)
[2016-08-09] MEDS: cloNIDine HCl 0.1 MG TABLET PO SCH ×2 (08:56→22:30)
[2016-08-09] MEDS: Levofloxacin 750 MG/150 ML 750 MG/150 ML BAG IVPB SCH (08:56)
[2016-08-09] MEDS: Saline Nasal Spray 44 ML BOTTLE NS SCH ×3 (08:59→22:31)
[2016-08-09] MEDS: Insulin DETEMIR 100 UNIT/ML X5UNITS SQ SCH ×2 (09:04→22:31)
[2016-08-09] MEDS: *HR* HYDROcodone/Acet 5/325 mg TABLET PO PRN (10:52)
[2016-08-09] MEDS: Budesonide/Formoterol 160/4.5 MDI IH SCH ×2 (11:00→21:35)
[2016-08-09] MEDS: Tiotropium 18 MCG inhalation IH SCH (11:00)
[2016-08-09] MEDS ORDERED: Saliva Stimulant 100ml BOTTLE PO PRN (12:52)
--- NOTE | 2016-08-09 16:06 | Internal Med Progress Note ---
Date of Encounter: 08/09/16 Time of Encounter: 16:02 - Assessment and plan (1) Acute on chronic respiratory failure with hypoxemia Current Visit: Yes Status: Acute Assessment and plan: possible 2/2 HCAP that has never resolved, she does not have fever or leucocytosis. will continue the IV levofloxacin for now and complete for total of 7 days , repeat CXR tomm. also has diastolic heart failure but euvolemic now, on home dose of lasix. planned to dc to ECF with respiratory therapy facilities as she keeps coming back with desaturation. monitor sats. (2) HCAP (healthcare-associated pneumonia) Current Visit: Yes Status: Acute Assessment and plan: cxr showed multifocal pneumonia. its persistent since last admission, hence will stop vanco and zosyn, chest physiotherapy, blood cx shows no growth. aspiration precautions, speech saw the patient and placed on mechanically altered diet , able to swallow ok. Continue levofloxacin for a total of 7 days. (3) Anemia of chronic disease Current Visit: No Status: Acute Assessment and plan: has chronic anemia with normal MCV, most likely anemia of chronic disease 2/2 CKD. has had GI eval in the past and has had EGD that showed no active bleeding. bleeding was most likely supposed to be 2/2 ENT causes which has now resolved , had a recent ENT eval. reports that she feels very weak, was transfused 1 unit yesterday, hemoglobin 7.62 days, if need be may need another unit of transfusion. Patient needs to follow up with renal as outpatient, needs anaresp injection. (4) COPD (chronic obstructive pulmonary disease) Current Visit: No Status: Acute Assessment and plan: not in exacerbation. Qualifiers: COPD type: unspecified COPD Qualified Code(s): J44.9 - Chronic obstructive pulmonary disease, unspecified (5) Diastolic CHF, chronic Current Visit: No Status: Chronic Assessment and plan: she may have some component of diastolic heart failure. has b/l pitting edema with elevated BNP, does not have acute pulmonary edema now. will keep lasix 40 mg daily. also may have component of JOSEFINA , continue CPAP at night. will keep on fluid restriction diet. - Time Spent With Patient 25 - 35 minutes - Subjective Interval history: Patient seen at the bedside, appears to be more fresh today, agrees to work with PT. lying in bed without any distress, non compliant to rehab and keeps lying in the bed, very hard to get her up to the side of the bed, she says ever since she broke her left leg, she has been bed bound and has reportedly found to have refused rehab therapy. was able to get to the side of her bed, sating fine on 3 L nasal cannula, CPAP at night. - Constitutional Vitals: Temp Pulse Resp BP Pulse Ox 98.5 F 86 18 146/76 97 08/09/16 11:27 08/09/16 11:27 08/09/16 11:27 08/09/16 11:27 08/09/16 11:27 General appearance: Present: A&O X 3, morbidly obese, answers questions appropriately Exam: General appearance: Present: A&O X 3, morbidly obese, answers questions appropriately Exam: General appearance: no acute distress ENT: oropharynx moist Neck: supple Effort: normal Auscultation: bilateral: diminished breath sounds, no wheezing, mild b/l basal creptns Cardiovascular: regular rate and rhythm Gastrointestinal: normoactive bowel sounds normal mental status, non-focal exam Internal Medicine: Result - Labs CBC & Chem 7: 08/09/16 06:13 08/09/16 06:13 Labs: Short CBC 08/09/16 Range/Units 06:13 WBC 6.7 (4.3-11.1) K/mcL Hgb 7.6 L (11.5-15.4) g/dL Hct 24.0 L (35.3-44.9) % Plt Count 391 (140-400) K/mcL Neutrophils # 5.0 (1.6-8.9) K/mcL BMP 08/09/16 06:13 Sodium 140 Potassium 4.1 Chloride 102 Carbon Dioxide 29 BUN 63 H Creatinine 2.02 H Glucose 111 H Calcium 8.5 L Consult Discharge Plan - Plan Referrals: NO,PCP [Primary Care Provider] - (Pt is ECF/Signatures )
[2016-08-10] MEDS: hydrALAZINE 25 MG TABLET PO SCH ×3 (01:02→17:14)
[2016-08-10] MEDS: *HR* Heparin 5,000 UNIT/ML VIAL SQ SCH ×2 (05:52→17:14)
[2016-08-10] MEDS: Insulin LISPRO 300 UNITS/3 ML VIAL SQ SCH ×4 (08:32→19:52)
[2016-08-10] MEDS: Cholecalciferol (D-3) 1,000 UNIT TABLET PO SCH (08:39)
[2016-08-10] MEDS: FLUoxetine 20 MG CAPSULE PO SCH (08:39)
[2016-08-10] MEDS: Gabapentin 300 MG CAPSULE PO SCH ×2 (08:39→20:05)
[2016-08-10] MEDS: Levothyroxine 25 MCG TABLET PO SCH (08:39)
[2016-08-10] MEDS: Insulin DETEMIR 100 UNIT/ML X5UNITS SQ SCH ×2 (08:40→20:05)
[2016-08-10] MEDS: Aspirin 81 MG TAB.CHEW PO SCH (08:40)
[2016-08-10] MEDS: Furosemide 40 MG/4 ML VIAL IVP SCH ×2 (08:40→17:14)
[2016-08-10] MEDS: Saline Nasal Spray 44 ML BOTTLE NS SCH ×3 (08:41→20:05)
[2016-08-10] MEDS: Isosorbide MONOnitrate (24 HR) 30 MG TAB.ER.24H PO SCH ×2 (10:33→11:56)
[2016-08-10] MEDS: cloNIDine HCl 0.1 MG TABLET PO SCH ×2 (10:33→20:05)
[2016-08-10] MEDS: *HR* HYDROcodone/Acet 5/325 mg TABLET PO PRN ×2 (10:35→15:39)
[2016-08-10] MEDS: Tiotropium 18 MCG inhalation IH SCH (12:31)
[2016-08-10] MEDS: Budesonide/Formoterol 160/4.5 MDI IH SCH ×2 (12:31→21:24)
[2016-08-10] MEDS: Ipratropium/Albuterol Neb 3 ML IH SCH ×3 (12:31→21:24)
[2016-08-10] MEDS ORDERED: Furosemide 40 MG/4 ML VIAL IVP ONE (12:47)
--- NOTE | 2016-08-10 13:17 | Internal Med Progress Note ---
Date of Encounter: 08/10/16 Time of Encounter: 09:00 - Assessment and plan (1) Pneumonia Current Visit: No Status: Acute Assessment and plan: possilble faciliity acquired continue broad spectrum antibiotics, incentive pulmonary toilette Qualifiers: Pneumonia type: aspiration pneumonia Aspiration pneumonia type: unspecified Laterality: bilateral Lung location: lower lobe of lung Qualified Code(s): J69.0 - Pneumonitis due to inhalation of food and vomit (2) CHF exacerbation Current Visit: Yes Status: Acute Assessment and plan: start irineo and aldactone seems decompensated follow renal function and lytes Qualifiers: Congestive heart failure type: systolic Qualified Code(s): I50.23 - Acute on chronic systolic (congestive) heart failure (3) Debilitated Current Visit: Yes Status: Chronic Assessment and plan: PT/OT (4) CKD (chronic kidney disease) stage 3, GFR 30-59 ml/min Current Visit: Yes Status: Chronic Assessment and plan: at base line - Subjective Interval history: Pt Feels somehow better but still SOB - Constitutional Vitals: Temp Pulse Resp BP Pulse Ox 97.8 F 78 18 135/65 98 08/10/16 11:21 08/10/16 11:21 08/10/16 11:21 08/10/16 11:21 08/10/16 11:21 General appearance: Present: A&O X 3, morbidly obese, answers questions appropriately - Respiratory Respiratory exam: Present: decreased breath sounds Additional comments: rales and scattered ronchi in both lung bases - Cardiovascular Cardiovascular exam: Present: RRR, +S1, +S3 (increase P2) - GI/Abdominal GI/Abdominal exam: Present: normal bowel sounds, soft - Extremities Exam Additional comments: edema +++ Internal Medicine: Result - Labs CBC & Chem 7: 08/09/16 06:13 08/09/16 06:13 Consult Discharge Plan - Plan Referrals: NO,PCP [Primary Care Provider] - (Pt is ECF/Signatures )
--- NOTE | 2016-08-10 13:58 | Palliative - Consult Note ---
<Damián Jean - Last Filed: 08/10/16 14:23> Date of Encounter: 08/10/16 Time of Encounter: 13:30 - Assessment and Plan (1) Patient is full code Current Visit: Yes Status: Acute Assessment and plan: -EF 35%, o2 stat 98% on 3L, non ambulatory. Lives at [facility]. Happy with care there. -Patient wishes to remain full code. 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 Does not want palliative nor hospice care nor does the patient meet criteria for palliative or hospice care -POA is her daughter, Sissy Faith. . There is no proper documentation of POA, [facility] social work is aware and working on getting it resolved. (2) Acute on chronic respiratory failure with hypoxemia Current Visit: Yes Status: Acute Assessment and plan: -Patient resting calmly in bed on 3 L of oxygen. Saturation at 98% -Does admit to shortness of breath while at rest, however symptom is improving compared to yesterday -Suggest adding prednisone to home therapy medication. Palliative-CN HPI - Data of Consult Patient: new to practice Consult date: 08/10/16 Requesting Physician: Melissa Conley Primary Care Provider: PCP NO. Under physician's care at [facility] - Consult Narrative Reason for consult: Discussed CODE STATUS, health care/hospice History of present illness: Ms. Dsouza is a 71 year old female with frequent admissions since May for CHF and pneumonia. Today, patient states that she feels better. Does admit to shortness of breath, nonproductive cough, feeling cold. Denies chest pain, fevers, nausea, vomiting, abdominal pain. Workup thus far is recurrent pneumonia vs CHF exacerbation. Denies smoking, quit 4 years ago. She currently lives at [facility], since May 21, 2016 because her daughters could no longer take care of her because she is nonambulatory with a right broken leg. Broken leg not repaired because "her bones are too brittle" Her recurrent shortness of breath is relieved by sitting up in the chair. In the usp, she is on continual oxygen at 2L and CPAP, bipap during the day periodically. Her POA is her daughter, Sissy Faith . There is currently no documentation, patient agrees on the importance of having documentation of a POA. CODE STATUS discussed at great length by myself and Dr. Forbes, patient wishes to remain full code. However, She does not wish to have group home intubation. Patient does not wish to be on hospice nor palliative care. CC: Sofía Porras Past Med Surg Social Fam HX - Past Medical History Medical history: asthma, CHF, COPD, CVA, diabetes, hypertension, renal disease, other Psychiatric history: no psych history - Past Surgical History Surgical History: no surgical history - Social History Smoking Status: Never smoker Smokeless Tobacco Status: No Alcohol use: none Drug use: none - Family History Father Living Status: Hx Family Cancer: Yes Mother Living Status: Hx Family Cardiac Disorders: No Hx Family Respiratory Disorders: No Hx Family Cancer: Yes Hx Family GI Disorders: No Hx Family Endocrine Disorder: No Hx Family Neuromuscular Disorders: No Hx Family Neurologic Disorders: No Hx Family HEENT Disorders: No Hx Family Autoimmune Disorders: No Medications and Allergies Cholecalciferol (Vitamin D3) [Vitamin D3] 50,000 unit PO QWEEK 05/30/16 [History ] FLUoxetine HCl [Prozac] 20 mg PO DAILY 05/30/16 [History] Gabapentin [Neurontin] 300 mg PO BID 05/30/16 [History] Hydralazine HCl 100 mg PO Q8H 05/30/16 [History] Insulin ASPART [NovoLOG] 1 - 5 unit SQ ACHS 05/30/16 [History] Isosorbide MONOnitrate (24 HR) [Imdur] 30 mg PO DAILY 05/30/16 [History] CloNIDine HCl [Clonidine HCl] 0.2 mg PO BID #60 tab 06/04/16 [Rx] Aspirin 81 mg PO DAILY 07/10/16 [History] Insulin DETEMIR [Levemir] 50 unit SQ QAM 07/10/16 [History] Insulin DETEMIR [Levemir] 55 unit SQ HS 07/10/16 [History] Acetaminophen [Tylenol] 650 mg PO Q6HR PRN #0 tablet 07/20/16 [Rx] Ipratropium/Albuterol Neb [Duoneb] 3 ml IH [id number] inhsol 07/20/16 [Rx] Tramadol HCl [Ultram] 50 mg PO QID PRN #10 tab 07/20/16 [Rx] Atorvastatin Calcium [Lipitor] 80 mg PO DAILY 07/31/16 [History] Budesonide/Formoterol 160/4.5 [Symbicort 160/4.5] 2 puff IH BID 07/31/16 [ History] ClonazePAM [Klonopin] 1 mg PO TID PRN 07/31/16 [History] Clopidogrel [Plavix] 75 mg PO DAILY 07/31/16 [History] Fluconazole [Diflucan] 100 mg PO DAILY MDD stop 1--07/31/16 [History] Furosemide [Lasix] 40 mg PO DAILY 07/31/16 [History] Levothyroxine [Synthroid] 25 mcg PO DAILY 07/31/16 [History] Loperamide [Imodium] 2 mg PO Q4HR PRN 07/31/16 [History] Pantoprazole Sodium [Protonix] 40 mg PO DAILY 07/31/16 [History] Saline Nasal [place] [Ixl Nasal [place]] 2 spray NS TID 07/31/16 [History] Tiotropium [Spiriva] 18 mcg IH DAILY 07/31/16 [History] Levofloxacin 500 mg PO DAILY #7 solution MDD stop 1--08/03/16 [Rx] Allergies No Known Allergies Allergy (Verified 07/24/16 16:19) - EENT Ears, nose, mouth, throat: other - Cardiovascular Cardiovascular ROS: as per HPI - Respiratory Respiratory: as per HPI - Psychiatric Psychiatric general PM: no homicidal ideation, no suicidal ideation Palliative Care-Exam - Constitutional Vitals: Temp Pulse Resp BP Pulse Ox 97.8 F 78 18 135/65 98 08/10/16 11:21 08/10/16 11:21 08/10/16 11:21 08/10/16 11:21 08/10/16 11:21 - Other Additional findings: Patient appears comfortable in the room, watching TV. Alert and oriented 3. Patient has mild cough, nonproductive. She able to complete sentences without becoming short of breath. currently on 3 L of nasal cannula and tolerating it well. She does have a crackling and gurgling sound when she speaks. No chest pain with palpation, heart rate regular rate and rhythm no murmurs. Lungs: crackles noticed in the bilateral bases with Decreased breath sounds. Normal bowel sounds, no pain with palpation.+3/4 pitting edema in the lower extremities. No cyanosis or ulcers seen. Internal Medicine - CN: Reslt - Labs CBC & Chem 7: 08/09/16 06:13 08/09/16 06:13 Consult Discharge Plan - Plan Referrals: NO,PCP [Primary Care Provider] - (Pt is ECF/Signatures ) <Kailash Forbes - Last Filed: 08/11/16 07:05> Date of Encounter: 08/10/16 Time of Encounter: 13:30 Palliative-CN HPI - Data of Consult Requesting Physician: Sofía Porras Primary Care Provider: PCP NO - Consult Narrative History of present illness: Ms. Dsouza is a 71 year old female CC: Sofía Porras - Constitutional Constitutional ROS PAL: no decreased appetite, no anorexia - EENT Eyes: no discharge, no pain Ears: no ear discharge, no ear pain Ears, nose, mouth, throat: no dysphagia, no epistaxis, no mouth pain, no nasal congestion - Cardiovascular Cardiovascular ROS: as per HPI - Respiratory Respiratory: as per HPI - Gastrointestinal Gastrointestinal: as per HPI - Genitourinary Palliative ROS female: as per HPI - Musculoskeletal Musculoskeletal ROS IM: as per HPI - Integumentary ROS Integumentary: no skin ulcer, no sores, no wounds - Neurological Neurological ROS: no headache(s), no lack of coordination, no paresthesias, no radicular pain - Endocrine Endocrine IM: as per HPI Palliative Care-Exam - Constitutional Vitals: Temp Pulse Resp BP Pulse Ox 98.2 F 76 20 135/69 98 08/11/16 04:26 08/11/16 04:26 08/11/16 04:26 08/11/16 04:26 08/11/16 04:26 General appearance: Present: no acute distress - Head Head Exam: Present: atraumatic, normal inspection - Eye Eye exam: Present: EOMI, normal appearance - ENT ENT exam: Present: mucous membranes moist - Neck Neck exam: Present: normal inspection - Respiratory Respiratory exam: Present: decreased breath sounds - Cardiovascular Cardiovascular exam: Present: RRR - GI/Abdominal Exam GI/Abdominal exam: Present: normal bowel sounds, soft. Absent: tenderness - Extremities Exam Extremities exam: Present: normal inspection. Absent: pedal edema, tenderness - Neurological Exam Neurological exam: Present: alert, oriented X3 - Psychiatric Psychiatric exam: Present: normal affect, normal mood. Absent: agitated, anxious - Skin Skin exam: Present: dry, warm Internal Medicine - CN: Reslt - Labs CBC & Chem 7: 08/09/16 06:13 08/11/16 05:24 Labs: BMP 08/11/16 05:24 Sodium 138 Potassium 4.2 Chloride 104 Carbon Dioxide 26 BUN 52 H Creatinine 1.72 H Glucose 134 H Calcium 8.6 - Impressions Impressions Chest X-Ray 08/10/16 11:50 IMPRESSION: Patchy airspace opacities bilaterally, mildly improved in the left hemithorax and mildly progressed at the right lung base, likely related to multifocal pneumonia versus pulmonary edema. Trace left pleural effusion. Borderline cardiomegaly, stable. D/ / James Evans MD / James Evans MD Interpreting Provider: James Evans MD - Attending Attestation I examined this patient and my medical decision-making was reviewed with the VINYL CUTTER/PA/Advanced Practice Nurse/Resident Physician. I agree with the documented findings, disposition and treatment plan as described except to the extent set forth below. Palliative Quality Palliative Quality: Screen for Code Status: Yes, Screen for Goals of Care: Yes, Screen for Pain: Yes, If Pain Regimen Started, Initiate Bowel Regimen: NA, Screen for Nausea/Vomitting: Yes
[2016-08-10] MEDS: Ondansetron 4 MG/2 ML VIAL IVP PRN (19:43)
[2016-08-10] MEDS: Sennosides/Docusate Sodium TABLET PO SCH (20:05)
[2016-08-11] MEDS: hydrALAZINE 25 MG TABLET PO SCH ×3 (01:10→17:25)
[2016-08-11] MEDS: Ipratropium/Albuterol Neb 3 ML IH SCH ×4 (03:43→21:14)
[2016-08-11] MEDS: *HR* Heparin 5,000 UNIT/ML VIAL SQ SCH (05:02)
[2016-08-11 06:14] LABS: Calcium 8.6 mg/dL (8.6-10.8); Potassium 4.2 mEq/L (3.5-4.5)
--- NOTE | 2016-08-11 07:43 | Palliative Progress Note ---
Date of Encounter: 08/11/16 Time of Encounter: 07:20 - Assessment and plan (1) Dyspnea Current Visit: No Status: Acute Assessment and plan: Better this morning, not on BiPAP just doing well on nasal cannula. A new current medications per hospitalist team Qualifiers: Qualified Code(s): R06.00 - Dyspnea, unspecified (2) Goals of care, counseling/discussion Current Visit: Yes Status: Acute Assessment and plan: Patient has elected to be full code and as of today she continues to elect this. I will discussion has been undertaken. She understands the risks and benefits of this. Her goals of care are to return to the [place] [facility], he would like to be treated aggressively for this problem with her lungs. At this time it does not appear to me that she is maxed out in terms of cardio or pulmonary. There are no pulmonary function studies for me to refer to. Her ejection fraction is over 30%. In at this time she does not meet hospice criteria. (3) Acute on chronic respiratory failure with hypoxemia Current Visit: Yes Status: Acute (4) HCAP (healthcare-associated pneumonia) Current Visit: Yes Status: Acute Assessment and plan: Afebrile, no growth in blood cultures, normal white count when last checked. Continue current antibiotics per hospitalist team. (5) CKD (chronic kidney disease) stage 3, GFR 30-59 ml/min Current Visit: Yes Status: Chronic Assessment and plan: Stable at this time. Continue current medications. - Time Spent With Patient Total time spent is greater than 50% in coordination of care (as documented) at patient's floor/unit and/or counseling patient: - Subjective Interval history: The patient is breathing well off BiPAP has no complaint of pain, her breathing is better. He had no questions about our discussions of yesterday. - Constitutional Vitals: Abnormal lab results RBC 2.53 M/mcL (3.82-4.97) L 08/09/16 06:13 Hgb 7.6 g/dL (11.5-15.4) L 08/09/16 06:13 Hct 24.0 % (35.3-44.9) L 08/09/16 06:13 RDW 16.4 % (11.5-14.5) H 08/09/16 06:13 MPV 8.9 fL (9.4-12.4) L 08/09/16 06:13 Nucleated RBCs/100 WBC 0.3 /100 WBC (0) H 08/09/16 06:13 BUN 52 mg/dL (7-20) H 08/11/16 05:24 Creatinine 1.72 mg/dL (0.57-1.11) H 08/11/16 05:24 Est GFR ( Amer) 36 (> 60) L 08/11/16 05:24 Est GFR (Non-Af Amer) 29 (> 60) L 08/11/16 05:24 BUN/Creatinine Ratio 30 (6-26) H 08/11/16 05:24 Glucose 134 mg/dL (70-99) H 08/11/16 05:24 POC Glucose 134 (58-89) H 08/11/16 06:58 Calculated Osmolality 302 (280-300) H 08/11/16 05:24 Troponin I 0.11 ng/mL (0-0.03) H* 08/05/16 22:31 Urine Clarity Cloudy (Clear) A 08/05/16 10:31 Urine Protein 100 mg/dL (Neg-Trace) H 08/05/16 10:31 Ur Leukocyte Esterase Small (Negative) H 08/05/16 10:31 Urine Microscopic WBC 5-15 per hpf (0-3) H 08/05/16 10:31 Ur Squamous Epith Cells Moderate per lpf (None-Few) H 08/05/16 10:31 Urine Bacteria Moderate per hpf (None-Few) H 08/05/16 10:31 Urine Yeast Moderate per hpf (None Seen) H 08/05/16 10:31 Ur Culture Indicated? YES (NO) A 08/05/16 10:31 General appearance: Present: no acute distress - Head Head exam: Present: atraumatic, normal inspection - Eye Eye exam: Present: normal appearance - ENT ENT exam: Present: mucous membranes moist - Respiratory Respiratory exam: Present: decreased breath sounds - Cardiovascular Cardiovascular exam: Present: RRR - GI/Abdominal GI/Abdominal exam: Present: normal bowel sounds, soft. Absent: tenderness - Extremities Exam Extremities exam: Present: normal inspection. Absent: pedal edema, tenderness - Neurological Exam Neurological exam: Present: alert, oriented X3 - Psychiatric Psychiatric exam: Present: normal affect, normal mood. Absent: agitated, anxious - Skin Skin exam: Present: dry, warm Palliative Quality Palliative Quality: Screen for Code Status: Yes, Screen for Goals of Care: Yes, Screen for Pain: Yes, If Pain Regimen Started, Initiate Bowel Regimen: NA, Screen for Nausea/Vomitting: Yes - Labs CBC & Chem 7: 08/09/16 06:13 08/11/16 05:24 Labs: Laboratory Results - last 24 hr 08/10/16 08/10/16 08/10/16 08:25 11:24 15:51 Sodium Potassium Chloride Carbon Dioxide BUN Creatinine Est GFR ( Amer) Est GFR (Non-Af Amer) BUN/Creatinine Ratio Glucose POC Glucose 126 H 192 H 157 H Calculated Osmolality Calcium 08/10/16 08/11/16 08/11/16 19:47 05:24 06:58 Sodium 138 Potassium 4.2 Chloride 104 Carbon Dioxide 26 BUN 52 H Creatinine 1.72 H Est GFR ( Amer) 36 L Est GFR (Non-Af Amer) 29 L BUN/Creatinine Ratio 30 H Glucose 134 H POC Glucose 172 H 134 H Calculated Osmolality 302 H Calcium 8.6 - Impressions Impressions Chest X-Ray 08/10/16 11:50 IMPRESSION: Patchy airspace opacities bilaterally, mildly improved in the left hemithorax and mildly progressed at the right lung base, likely related to multifocal pneumonia versus pulmonary edema. Trace left pleural effusion. Borderline cardiomegaly, stable. D/ / James Evans MD / James Evans MD Interpreting Provider: James Evans MD Consult Discharge Plan - Plan Referrals: NO,PCP [Primary Care Provider] - (Pt is ECF/Signatures )
[2016-08-11] MEDS: Tiotropium 18 MCG inhalation IH SCH (08:10)
[2016-08-11] MEDS ORDERED: levoFLOXacin 500 MG TABLET PO SCH (09:00)
[2016-08-11] MEDS: Insulin LISPRO 300 UNITS/3 ML VIAL SQ SCH ×4 (09:17→22:03)
[2016-08-11] MEDS: Gabapentin 300 MG CAPSULE PO SCH ×2 (09:24→22:01)
[2016-08-11] MEDS: FLUoxetine 20 MG CAPSULE PO SCH (09:24)
[2016-08-11] MEDS: cloNIDine HCl 0.1 MG TABLET PO SCH ×2 (09:24→22:01)
[2016-08-11] MEDS: Aspirin 81 MG TAB.CHEW PO SCH (09:25)
[2016-08-11] MEDS: Levothyroxine 25 MCG TABLET PO SCH (09:25)
[2016-08-11] MEDS: Isosorbide MONOnitrate (24 HR) 30 MG TAB.ER.24H PO SCH (09:25)
[2016-08-11] MEDS: Spironolactone 25 MG TABLET PO SCH (09:25)
[2016-08-11] MEDS: Sennosides/Docusate Sodium TABLET PO SCH ×2 (09:25→22:01)
[2016-08-11] MEDS: Furosemide 40 MG/4 ML VIAL IVP SCH ×2 (09:25→17:25)
[2016-08-11] MEDS: Cholecalciferol (D-3) 1,000 UNIT TABLET PO SCH (09:26)
[2016-08-11] MEDS: Saline Nasal Spray 44 ML BOTTLE NS SCH ×3 (09:26→22:03)
[2016-08-11] MEDS: Insulin DETEMIR 100 UNIT/ML X5UNITS SQ SCH ×2 (09:27→22:03)
[2016-08-11] MEDS: *HR* HYDROcodone/Acet 5/325 mg TABLET PO PRN ×3 (09:33→23:52)
[2016-08-11] MEDS: Budesonide/Formoterol 160/4.5 MDI IH SCH ×2 (10:29→21:14)
[2016-08-11] MEDS ORDERED: *HR* OxyCODONE/APAP 10/325 TABLET PO ONE (12:15)
[2016-08-11] MEDS ORDERED: *HR* OxyCODONE/APAP 10/325 TABLET PO PRN (12:17)
--- NOTE | 2016-08-11 12:19 | Internal Med Progress Note ---
Date of Encounter: 08/11/16 Time of Encounter: 10:00 - Assessment and plan (1) Pneumonia Current Visit: No Status: Acute Assessment and plan: FACIITY ACQUIRED? BIBASILAR IMPROVING INCENTIVE SPIROMETTRY Qualifiers: Pneumonia type: aspiration pneumonia Aspiration pneumonia type: unspecified Laterality: bilateral Lung location: lower lobe of lung Qualified Code(s): J69.0 - Pneumonitis due to inhalation of food and vomit (2) CHF exacerbation Current Visit: Yes Status: Chronic Assessment and plan: BETTER COMPENSATED, BUT STILL DECOMPENSATED ,GENTLE DIURESIS , DUE TO RENAL FAILURE Qualifiers: Congestive heart failure type: systolic Qualified Code(s): I50.23 - Acute on chronic systolic (congestive) heart failure (3) Debilitated Current Visit: Yes Status: Chronic (4) CKD (chronic kidney disease) stage 3, GFR 30-59 ml/min Current Visit: Yes Status: Chronic (5) Morbid (severe) obesity with alveolar hypoventilation Current Visit: Yes Status: Acute (6) Morbid obesity Current Visit: Yes Status: Chronic Assessment and plan: COUNCELLED ON WEIGHT LOSS Qualifiers: Obesity type: due to excess calories Qualified Code(s): E66.01 - Morbid ( severe) obesity due to excess calories (7) Sacral decubitus ulcer, stage II Current Visit: Yes Status: Chronic Assessment and plan: WOUND CARE CONSULT, SPECIAL MATTRESS (8) Anemia Current Visit: No Status: Chronic Assessment and plan: OF CHRONIC DISEASE , DUE TO CKD STABLE FOR NOW, NO NEED FOR TRANSFUTION PER SYMTOMATIC, WILL CHECK IRON PROPHILE Qualifiers: Anemia type: unspecified type Qualified Code(s): D64.9 - Anemia, unspecified - Subjective Interval history: Pt Feels BETTER LESS SOB NO FEVER OVERNIGHT - Constitutional Vitals: Temp Pulse Resp BP Pulse Ox 97.6 F 86 16 118/66 97 08/11/16 11:18 08/11/16 11:18 08/11/16 11:18 08/11/16 11:18 08/11/16 11:18 General appearance: Present: A&O X 3, morbidly obese, answers questions appropriately - Respiratory Respiratory exam: Present: decreased breath sounds - Cardiovascular Cardiovascular exam: Present: RRR (freya 3/6 IN rusb) - GI/Abdominal GI/Abdominal exam: Present: normal bowel sounds, soft - Extremities Exam Extremities exam: Present: pedal edema Additional comments: SACRAL DECUBITUS STAGE II IN SACRUM, PEDAL EDEMA ++ - Neurological Exam Neurological exam: Present: CN II-XII intact Internal Medicine: Result - Labs CBC & Chem 7: 08/09/16 06:13 08/11/16 05:24 Labs: BMP 08/11/16 05:24 Sodium 138 Potassium 4.2 Chloride 104 Carbon Dioxide 26 BUN 52 H Creatinine 1.72 H Glucose 134 H Calcium 8.6 - Impressions Impressions Chest X-Ray 08/10/16 11:50 IMPRESSION: Patchy airspace opacities bilaterally, mildly improved in the left hemithorax and mildly progressed at the right lung base, likely related to multifocal pneumonia versus pulmonary edema. Trace left pleural effusion. Borderline cardiomegaly, stable. D/ / James Evans MD / James Evans MD Interpreting Provider: James Evans MD Consult Discharge Plan - Plan Referrals: NO,PCP [Primary Care Provider] - (Pt is ECF/Signatures )
[2016-08-12] MEDS: hydrALAZINE 25 MG TABLET PO SCH ×3 (00:34→16:08)
[2016-08-12] MEDS: Ipratropium/Albuterol Neb 3 ML IH SCH ×4 (04:21→22:25)
[2016-08-12 05:58] LABS: Hemoglobin 7.5 g/dL (11.5-15.4); Immature Platelets 0.9 % (1.1-6.1); Mean Corpuscular Hemoglobin 29.2 pg (28.0-33.3); Mean Corpuscular Volume 97.3 fL (83.0-100.0); Mean Platelet Volume 8.5 fL (9.4-12.4); Red Blood Count 2.57 M/mcL (3.82-4.97); Red Cell Distribution Width 16.5 % (11.5-14.5)
--- NOTE | 2016-08-12 08:28 | Discharge Summary ---
Date of Encounter: 08/12/16 Time of Encounter: 08:26 - Discharge Diagnosis (1) Acute on chronic respiratory failure with hypoxemia Priority: Primary Status: Acute Comments: Acute chronic hypoxic respiratory failure secondary to healthcare associated pneumonia present upon admission in combination with acute systolic/diastolic CHF exacerbation (2) HCAP (healthcare-associated pneumonia) Priority: Primary Status: Acute (3) CHF exacerbation Priority: Primary Status: Chronic Comments: Last echocardiogram from May shows an ejection fraction of 55% with moderate diastolic dysfunction of the left ventricle. Qualifiers: Congestive heart failure type: combined Qualified Code(s): I50.43 - Acute on chronic combined systolic (congestive) and diastolic (congestive) heart failure (4) Sacral decubitus ulcer, stage II Priority: Secondary Status: Chronic (5) Anemia of chronic disease Priority: Secondary Status: Acute Comments: Stable, has not required transfusions. (6) CKD (chronic kidney disease) stage 4, GFR 15-29 ml/min Priority: Secondary Status: Chronic (7) Obesity (BMI 30-39.9) Priority: Secondary Status: Chronic - Discharge Medications Prescriptions: OxyCODONE/APAP 10/325 [Percocet 10/325 MG] 1 each PO Q6HR PRN #20 tablet PRN Reason: Pain Home Medications: Cholecalciferol (Vitamin D3) [Vitamin D3] 50,000 unit PO QWEEK 05/30/16 [History ] FLUoxetine HCl [Prozac] 20 mg PO DAILY 05/30/16 [History] Gabapentin [Neurontin] 300 mg PO BID 05/30/16 [History] Hydralazine HCl 100 mg PO Q8H 05/30/16 [History] Insulin ASPART [NovoLOG] 1 - 5 unit SQ ACHS 05/30/16 [History] Isosorbide MONOnitrate (24 HR) [Imdur] 30 mg PO DAILY 05/30/16 [History] CloNIDine HCl [Clonidine HCl] 0.2 mg PO BID #60 tab 06/04/16 [Rx] Aspirin 81 mg PO DAILY 07/10/16 [History] Insulin DETEMIR [Levemir] 50 unit SQ QAM 07/10/16 [History] Insulin DETEMIR [Levemir] 55 unit SQ HS 07/10/16 [History] Acetaminophen [Tylenol] 650 mg PO Q6HR PRN #0 tablet 07/20/16 [Rx] Ipratropium/Albuterol Neb [Duoneb] 3 ml IH [id number] inhsol 07/20/16 [Rx] Tramadol HCl [Ultram] 50 mg PO QID PRN #10 tab 07/20/16 [Rx] Atorvastatin Calcium [Lipitor] 80 mg PO DAILY 07/31/16 [History] Budesonide/Formoterol 160/4.5 [Symbicort 160/4.5] 2 puff IH BID 07/31/16 [ History] ClonazePAM [Klonopin] 1 mg PO TID PRN 07/31/16 [History] Clopidogrel [Plavix] 75 mg PO DAILY 07/31/16 [History] Fluconazole [Diflucan] 100 mg PO DAILY MDD stop 08-08-16 07/31/16 [History] Levothyroxine [Synthroid] 25 mcg PO DAILY 07/31/16 [History] Loperamide [Imodium] 2 mg PO Q4HR PRN 07/31/16 [History] Pantoprazole Sodium [Protonix] 40 mg PO DAILY 07/31/16 [History] Saline Nasal [place] [[place] Nasal [place]] 2 spray NS TID 07/31/16 [History] Tiotropium [Spiriva] 18 mcg IH DAILY 07/31/16 [History] Furosemide [Lasix] 40 mg PO BID #0 08/12/16 [Rx] Lisinopril [Zestril] 5 mg PO DAILY #0 tablet 08/12/16 [Rx] OxyCODONE/APAP 10/325 [Percocet 10/325 MG] 1 each PO Q6HR PRN #20 tablet [Rx] Spironolactone [Aldactone] 12.5 mg PO DAILY tablet 08/12/16 [Rx] Allergies/Adverse Reactions: Allergies No Known Allergies Allergy (Verified 07/24/16 16:19) Date of admission: 08/05/16 13:58 Primary care physician: PCP NO Consults: 08/06/16 11:24 Consult to Occupational Therapy [CONS] Routine Comment: Evaluate, develop and implement POC Consult to Physical Therapy [CONS] Routine Comment: Evaluate, develop and implement POC 08/07/16 11:44 Consult to [employer] [CONS] Routine Reason for SW Consult: placement to rehab 08/10/16 12:46 Consult to Palliative Care [CONS] Routine Comment: Consulting Provider: Palliative Care Sameera - Patient Status Disposition: Transfer SNF Condition: Fair Overall status at discharge: patient is progressing back to baseline - Discharge Instructions Follow Up With: NO,PCP [Primary Care Provider] - (Pt is ECF/Signatures ) Additional Instructions: Follow with primary care physician within the next 7 days. Continue Lasix at 40 mg daily and 20 mg in the afternoon. - Diet and Activity Activity: increase activity as tolerated, wear oxygen at all times Diet: diabetic diet Hospital course: Ms. Dsouza is a 71 year old female with comorbidities Obesity, HFpEF, JOSEFINA on CPAP, diabetes type 2 insulin-dependent, chronic respiratory failure, healthcare associated pneumonia in the past, COPD on 3LNC. Right lower extremity fracture. Systolic and Diastolic CHF. Chronic respiratory failure. With multiple admissions over the past few months. The patient was just recently admitted to this facility and was discharged on August 03 after pain treated for healthcare acquired pneumonia as well as anemia. [facility] and was found by the staff today with altered mental status febrile and hypoxic with SPO2 87% on 4 L. Patient was receiving oral antibiotics Levaquin for continued HCAP Treatment. She was transported to the hospital by EMS on BiPAP. Upon arrival to the ED her SPO2 had improved to 97%. According to ER records the patient did appear to be in mild respiratory distress she was awake however did not respond to questions appropriately.. She was tachycardic on presentation heart rate of 102 she was afebrile 98.7. Sepsis protocol was followed blood cultures were obtained patient was initiated on vancomycin , Levaquin and Zosyn.. Her white count was 8.8, CXR chest revealed pneumonia she was admitted for further workup and evaluation. Patient was started on BiPAP She was admitted this time for possible healthcare associated pneumonia, she has improved only on Levaquin and has completed 7 days. Her chest x-ray showed multi focal pneumonia with some mild pulmonary edema. Was continued on Lasix IV twice a day. Her symptoms had improved and is ready to be discharged back to [facility]. Increase Lasix up to 40 mg in the morning and 20 mg at night. The patient's ejection fraction has improved up to 55% according to the last echocardiogram. - Time Spent with Patient Total time spent providing and/or coordinating discharge services: Greater than 30 minutes - Constitutional Vitals: Temp Pulse Resp BP Pulse Ox 97.5 F L 68 16 94/55 96 08/12/16 07:23 08/12/16 07:23 08/12/16 07:23 08/12/16 07:23 08/12/16 07:23 General appearance: Present: A&O X 3, morbidly obese, answers questions appropriately - Head Head exam: Present: atraumatic, normocephalic - Eye Eye exam: Present: PERRL, conjuntiva pink, sclera anicteric Pupils: Present: PERRL - Neck Neck exam general surgery: Present: supple, trachea midline. Absent: lymphadenopathy - Respiratory Respiratory exam: Present: decreased breath sounds, CTAB. Absent: accessory muscle use, rales, rhonchi, wheezes - Cardiovascular Cardiovascular exam: Present: RRR, +S1, +S2. Absent: diastolic murmur, gallop, rubs, systolic murmur - GI/Abdominal GI/Abdominal exam: Present: normal bowel sounds, soft, no peritoneal signs. Absent: distended, tenderness - Extremities Exam Extremities exam: Present: warm, radial pulses palpable and symetrical. Absent : calf tenderness, cyanotic, pedal edema Additional comments: Decreased range of motion of the right lower extremity secondary to pain due to prior fracture. Bilateral +2 pitting edema in both lower extremities - Neurological Exam Neurological exam: Present: CN II-XII intact, oriented X3, no focal deficits. Absent: pronater drift, facial droop, speech deficit - Skin Skin exam: Present: dry, intact - VTE Documentation of Mechanical Device: Intermittent pneumatic compression device
[2016-08-12] MEDS: Tiotropium 18 MCG inhalation IH SCH (08:29)
--- NOTE | 2016-08-12 08:44 | Physician Discharge Referral ---
ExtendedCare Referral Info Provider in Charge after Transfer: PCP Institutional Level of Care: Skilled - Diagnosis (1) Acute on chronic respiratory failure with hypoxemia Status: Acute (2) HCAP (healthcare-associated pneumonia) Status: Acute (3) CHF exacerbation Status: Chronic (4) Sacral decubitus ulcer, stage II Status: Chronic (5) Anemia of chronic disease Status: Acute (6) CKD (chronic kidney disease) stage 4, GFR 15-29 ml/min Status: Chronic (7) Obesity (BMI 30-39.9) Status: Chronic - Transfer Medications Prescriptions: OxyCODONE/APAP 10/325 [Percocet 10/325 MG] 1 each PO Q6HR PRN #20 tablet PRN Reason: Pain Home Medications: Cholecalciferol (Vitamin D3) [Vitamin D3] 50,000 unit PO QWEEK 05/30/16 [History ] FLUoxetine HCl [Prozac] 20 mg PO DAILY 05/30/16 [History] Gabapentin [Neurontin] 300 mg PO BID 05/30/16 [History] Hydralazine HCl 100 mg PO Q8H 05/30/16 [History] Insulin ASPART [NovoLOG] 1 - 5 unit SQ ACHS 05/30/16 [History] Isosorbide MONOnitrate (24 HR) [Imdur] 30 mg PO DAILY 05/30/16 [History] CloNIDine HCl [Clonidine HCl] 0.2 mg PO BID #60 tab 06/04/16 [Rx] Aspirin 81 mg PO DAILY 07/10/16 [History] Insulin DETEMIR [Levemir] 50 unit SQ QAM 07/10/16 [History] Insulin DETEMIR [Levemir] 55 unit SQ HS 07/10/16 [History] Acetaminophen [Tylenol] 650 mg PO Q6HR PRN #0 tablet 07/20/16 [Rx] Ipratropium/Albuterol Neb [Duoneb] 3 ml IH [id number] inhsol 07/20/16 [Rx] Tramadol HCl [Ultram] 50 mg PO QID PRN #10 tab 07/20/16 [Rx] Atorvastatin Calcium [Lipitor] 80 mg PO DAILY 07/31/16 [History] Budesonide/Formoterol 160/4.5 [Symbicort 160/4.5] 2 puff IH BID 07/31/16 [ History] ClonazePAM [Klonopin] 1 mg PO TID PRN 07/31/16 [History] Clopidogrel [Plavix] 75 mg PO DAILY 07/31/16 [History] Fluconazole [Diflucan] 100 mg PO DAILY MDD stop 1--17 07/31/16 [History] Levothyroxine [Synthroid] 25 mcg PO DAILY 07/31/16 [History] Loperamide [Imodium] 2 mg PO Q4HR PRN 07/31/16 [History] Pantoprazole Sodium [Protonix] 40 mg PO DAILY 07/31/16 [History] Saline Nasal [place] [[place] Nasal [place]] 2 spray NS TID 07/31/16 [History] Tiotropium [Spiriva] 18 mcg IH DAILY 07/31/16 [History] Furosemide [Lasix] 40 mg PO BID #0 08/12/16 [Rx] Lisinopril [Zestril] 5 mg PO DAILY #0 tablet 08/12/16 [Rx] OxyCODONE/APAP 10/325 [Percocet 10/325 MG] 1 each PO Q6HR PRN #20 tablet [Rx] Spironolactone [Aldactone] 12.5 mg PO DAILY tablet 08/12/16 [Rx] Allergies/Adverse Reactions: Allergies No Known Allergies Allergy (Verified 07/24/16 16:19) - Respiratory Orders Oxygen / L per min (3-1/2 L) Smoking Cessation: Smoking cessation has been advised. For more information, call the [place] Tobacco Quit Line at 1-944-LAQD-NOW. - Advance Directives Code Status: Full Code - Treatments List/Other: Follow with primary care physician within the next 7 days. Continue Lasix at 40 mg daily and 20 mg in the afternoon. - Diet Orders No Added Salt (HERNAN) (Diabetic diet 1800 kcal) CERTIFICATION: I certify that the transfer of the above named patient to an Extended Care Facility is necessary for the continuing treatment of the diagnosis listed. The above information is true and accurate reflection of patient's current condition. Confidential - Redisclosure prohibited without a patient's written consent.
[2016-08-12] MEDS: Insulin LISPRO 300 UNITS/3 ML VIAL SQ SCH ×4 (09:23→21:49)
[2016-08-12] MEDS: Gabapentin 300 MG CAPSULE PO SCH ×2 (09:24→21:48)
[2016-08-12] MEDS: *HR* HYDROcodone/Acet 5/325 mg TABLET PO PRN ×2 (09:24→16:08)
[2016-08-12] MEDS: cloNIDine HCl 0.1 MG TABLET PO SCH ×2 (09:24→21:49)
[2016-08-12] MEDS: Spironolactone 25 MG TABLET PO SCH (09:25)
[2016-08-12] MEDS: Aspirin 81 MG TAB.CHEW PO SCH (09:25)
[2016-08-12] MEDS: Furosemide 40 MG/4 ML VIAL IVP SCH ×2 (09:26→16:33)
[2016-08-12] MEDS: FLUoxetine 20 MG CAPSULE PO SCH (09:26)
[2016-08-12] MEDS: Isosorbide MONOnitrate (24 HR) 30 MG TAB.ER.24H PO SCH (09:26)
[2016-08-12] MEDS: Levothyroxine 25 MCG TABLET PO SCH (09:26)
[2016-08-12] MEDS: Budesonide/Formoterol 160/4.5 MDI IH SCH ×2 (10:19→22:25)
[2016-08-12] MEDS: Saline Nasal Spray 44 ML BOTTLE NS SCH ×3 (11:48→21:49)
[2016-08-12] MEDS: Insulin DETEMIR 100 UNIT/ML X5UNITS SQ SCH ×2 (11:48→21:49)
[2016-08-12] MEDS: Sennosides/Docusate Sodium TABLET PO SCH ×2 (11:48→21:49)
[2016-08-12] MEDS: Cholecalciferol (D-3) 1,000 UNIT TABLET PO SCH (11:48)
[2016-08-13] MEDS: hydrALAZINE 25 MG TABLET PO SCH ×2 (00:21→09:01)
[2016-08-13] MEDS: Ipratropium/Albuterol Neb 3 ML IH SCH ×2 (04:03→10:48)
[2016-08-13] MEDS: Insulin LISPRO 300 UNITS/3 ML VIAL SQ SCH ×2 (07:46→11:34)
[2016-08-13] MEDS: *HR* HYDROcodone/Acet 5/325 mg TABLET PO PRN (09:02)
[2016-08-13] MEDS: Levothyroxine 25 MCG TABLET PO SCH (09:02)
[2016-08-13] MEDS: Gabapentin 300 MG CAPSULE PO SCH (09:02)
[2016-08-13] MEDS: Sennosides/Docusate Sodium TABLET PO SCH (09:02)
[2016-08-13] MEDS: Cholecalciferol (D-3) 1,000 UNIT TABLET PO SCH (09:02)
[2016-08-13] MEDS: FLUoxetine 20 MG CAPSULE PO SCH (09:02)
[2016-08-13] MEDS: Isosorbide MONOnitrate (24 HR) 30 MG TAB.ER.24H PO SCH (09:02)
[2016-08-13] MEDS: Furosemide 40 MG/4 ML VIAL IVP SCH (09:02)
[2016-08-13] MEDS: cloNIDine HCl 0.1 MG TABLET PO SCH (09:03)
[2016-08-13] MEDS: Aspirin 81 MG TAB.CHEW PO SCH (09:03)
[2016-08-13] MEDS: Spironolactone 25 MG TABLET PO SCH (09:03)
[2016-08-13] MEDS: Saline Nasal Spray 44 ML BOTTLE NS SCH (09:04)
[2016-08-13] MEDS: Insulin DETEMIR 100 UNIT/ML X5UNITS SQ SCH (09:24)
[2016-08-13] MEDS: Tiotropium 18 MCG inhalation IH SCH (10:48)
[2016-08-13] MEDS: Budesonide/Formoterol 160/4.5 MDI IH SCH (10:48)
--- NOTE | 2016-08-13 13:10 | Internal Med Progress Note ---
Date of Encounter: 08/13/16 Time of Encounter: 13:08 - Assessment and plan (1) Acute on chronic respiratory failure with hypoxemia Current Visit: Yes Status: Acute Assessment and plan: Acute chronic hypoxic respiratory failure secondary to healthcare associated pneumonia present upon admission in combination with acute systolic/diastolic CHF exacerbation Completed 7 days of Levaquin. Continue Lasix, her dose was increased planned to dc to ECF with respiratory therapy facilities as she keeps coming back with desaturation. monitor sats. (2) HCAP (healthcare-associated pneumonia) Current Visit: Yes Status: Acute Assessment and plan: cxr showed multifocal pneumonia. vanco and zosyn were stopped Completed levofloxacin doses. (3) CHF exacerbation Current Visit: Yes Status: Chronic Assessment and plan: Continue Lasix upon discharge , Qualifiers: Congestive heart failure type: combined Qualified Code(s): I50.43 - Acute on chronic combined systolic (congestive) and diastolic (congestive) heart failure (4) Sacral decubitus ulcer, stage II Current Visit: Yes Status: Chronic Assessment and plan: WOUND CARE CONSULTed, SPECIAL MATTRESS (5) Anemia of chronic disease Current Visit: No Status: Acute Assessment and plan: has chronic anemia with normal MCV, most likely anemia of chronic disease 2/2 CKD. has had GI eval in the past and has had EGD that showed no active bleeding. bleeding was most likely supposed to be 2/2 ENT causes which has now resolved , had a recent ENT eval. was transfused 1 unit yesterday no evidence of bleeding. (6) CKD (chronic kidney disease) stage 4, GFR 15-29 ml/min Current Visit: No Status: Chronic (7) Obesity (BMI 30-39.9) Current Visit: No Status: Chronic - Time Spent With Patient Greater than 35 minutes - Subjective Interval history: Less short of breath, denies any phlegm production. No chest pain, no abdominal pain, dysuria. Denies any diarrhea. No fevers - Constitutional Vitals: Temp Pulse Resp BP Pulse Ox 98.5 F 82 18 106/50 96 08/13/16 11:26 08/13/16 11:26 08/13/16 11:26 08/13/16 11:26 08/13/16 11:26 General appearance: Present: A&O X 3, morbidly obese, answers questions appropriately - Head Head exam: Present: atraumatic, normocephalic - Eye Eye exam: Present: PERRL, conjuntiva pink, sclera anicteric Pupils: Present: PERRL - Neck Neck exam general surgery: Present: supple, trachea midline. Absent: lymphadenopathy - Respiratory Respiratory exam: Present: CTAB, rales (Fine bibasilar crackles). Absent: accessory muscle use, rhonchi, wheezes - Cardiovascular Cardiovascular exam: Present: RRR, +S1, +S2. Absent: diastolic murmur, gallop, rubs, systolic murmur - GI/Abdominal GI/Abdominal exam: Present: normal bowel sounds, soft, no peritoneal signs. Absent: distended, tenderness - Extremities Exam Extremities exam: Present: pedal edema, warm, radial pulses palpable and symetrical. Absent: calf tenderness, cyanotic Additional comments: Decreased range of motion of the right lower extremity secondary to pain due to prior fracture. Bilateral +2 pitting edema in both lower extremities - Neurological Exam Neurological exam: Present: CN II-XII intact, oriented X3, no focal deficits. Absent: pronater drift, facial droop, speech deficit - Skin Skin exam: Present: dry, intact Internal Medicine: Result - Labs CBC & Chem 7: 08/12/16 05:43 08/11/16 05:24 - VTE Documentation of Mechanical Device: Intermittent pneumatic compression device Consult Discharge Plan - Plan Additional Instructions: Follow with primary care physician within the next 7 days. Continue Lasix at 40 mg daily and 20 mg in the afternoon. Referrals: NO,PCP [Primary Care Provider] - (Pt is ECF/[facility] ) Prescriptions: OxyCODONE/APAP 10/325 [Percocet 10/325 MG] 1 each PO Q6HR PRN #20 tablet PRN Reason: Pain Metoprolol Succinate 25 mg PO DAILY #30 tab.er.24h
[2016-08-13] MEDS ORDERED: *HR* OxyCODONE/APAP 5/325 TABLET PO PRN (13:16)
[2016-08-13] MEDS ORDERED: Ipratropium/Albuterol Neb 3 ML IH PRN (13:17)
--- NOTE | 2016-08-13 15:50 | Event Note ---
Date of Encounter: 08/13/16 Time of Encounter: 15:45 ASked by director social service to re-discuss code status with pt, as she verbalized to him she doesn't want life support or CPR. Discussed code status at length and pt decided on DNR/DNI status. Order entered in [employer] and state form completed and copies made. Also witnessed POA that she completed.
[2016-08-13 16:00] VITALS: BP 106/62
== END 2016-08-13 16:44 | DRG 871 ==
LOC: 2ANU 09:54 → EMEROO 09:54 → SUATTDRO 13:58 → 2ANU 14:02
PROVIDERS: ADMIT Internal Medicine; ATTEND Internal Medicine

== ENCOUNTER 2016-10-07 09:44 | Inpatient (IN) ==
[2016-10-07] MEDS ORDERED: Ondansetron 4 MG/2 ML VIAL IVP ONE (09:53)
[2016-10-07] MEDS ORDERED: 0.9 % Sodium Chloride 1,000 ML IVC ONE (09:53)
[2016-10-07 10:22] LABS: Hematocrit 24.7 % (35.3-44.9); Hemoglobin 7.6 g/dL (11.5-15.4); Immature Granulocytes % 0.4 % (0-4); Lymphocytes % 5.1 %; Mean Corpuscular HGB Conc 30.8 g/dL (31.6-35.5); Mean Corpuscular Hemoglobin 28.7 pg (28.0-33.3); Mean Corpuscular Volume 93.2 fL (83.0-100.0); Mean Platelet Volume 8.8 fL (9.4-12.4); Monocytes % 7.5 %; Platelet Count 299 K/mcL (140-400); Red Blood Count 2.65 M/mcL (3.82-4.97); Red Cell Distribution Width 14.4 % (11.5-14.5); Segmented Neutrophils % 86.7 %
[2016-10-07 10:23] LABS: Basophils % 0.2 %; Eosinophils % 0.1 %; Lymphocytes # 0.7 K/mcL (0.6-4.6); Monocytes # 1.1 K/mcL (0.0-1.3); Neutrophils # 12.3 K/mcL (1.6-8.9)
[2016-10-07 10:28] LABS: INR 1.3; Prothrombin Time 13.8 Seconds (9.4-12.1)
[2016-10-07 10:30] LABS: Activated Partial Thrombo Time 32.5 Seconds (26.0-36.0)
--- NOTE | 2016-10-07 10:31 | Emergency Department Note ---
Disposition Clinical Impression: Sepsis, UTI (urinary tract infection), Hyperkalemia, ARF (acute renal failure) , Anemia Disposition: Admitted As Inpatient Condition: Fair General Adult HPI - General Chief complaint: ED Nausea/Vomiting/Diarrhea Stated complaint: Fever/N/V Time Seen by Provider: 10/07/16 09:48 Source: EMS Limitations: altered mental status - History of Present Illness Pain Scale: 0 - Related Data Home Medications Medication Instructions Recorded Confirmed Cholecalciferol (Vitamin D3) 50,000 unit PO QWEEK 05/30/16 10/07/16 [Vitamin D3] Gabapentin [Neurontin] 300 mg PO BID 05/30/16 10/07/16 Hydralazine HCl 100 mg PO Q8H 05/30/16 10/07/16 Insulin ASPART [NovoLOG] 1 - 5 unit SQ ACHS 05/30/16 10/07/16 Isosorbide MONOnitrate (24 HR) 30 mg PO DAILY 05/30/16 10/07/16 [Imdur] Aspirin 81 mg PO DAILY 07/10/16 10/07/16 Insulin DETEMIR [Levemir] 50 unit SQ QAM 07/10/16 10/07/16 Insulin DETEMIR [Levemir] 55 unit SQ HS 07/10/16 10/07/16 Atorvastatin Calcium [Lipitor] 80 mg PO DAILY 07/31/16 10/07/16 Budesonide/Formoterol 160/4.5 2 puff IH BID 07/31/16 10/07/16 [Symbicort 160/4.5] ClonazePAM [Klonopin] 1 mg PO TID PRN 07/31/16 10/07/16 Clopidogrel [Plavix] 75 mg PO DAILY 07/31/16 10/07/16 Levothyroxine [Synthroid] 25 mcg PO DAILY 07/31/16 10/07/16 Loperamide [Imodium] 2 mg PO Q4HR PRN 07/31/16 10/07/16 Pantoprazole Sodium [Protonix] 40 mg PO DAILY 07/31/16 10/07/16 Saline Nasal [place] [[place] Nasal 2 spray NS TID 07/31/16 10/07/16 [place]] Tiotropium [Spiriva] 18 mcg IH DAILY 07/31/16 10/07/16 Citalopram [CeleXA] 20 mg PO DAILY 10/07/16 10/07/16 Furosemide [Lasix] 20 mg PO QPM 10/07/16 10/07/16 Loratadine [Claritin] 10 mg PO DAILY 10/07/16 10/07/16 Multivitamin [One Daily 1 tab PO DAILY 10/07/16 10/07/16 Multivitamin] Previous Rx's Medication Instructions Recorded CloNIDine HCl [Clonidine HCl] 0.2 mg PO BID #60 tab 06/04/16 Acetaminophen [Tylenol] 650 mg PO Q6HR PRN #0 tablet 07/20/16 Ipratropium/Albuterol Neb [Duoneb] 3 ml IH [id number] inhsol 07/20/16 Tramadol HCl [Ultram] 50 mg PO QID PRN #10 tab 07/20/16 Furosemide [Lasix] 40 mg PO BID #0 08/12/16 Lisinopril [Zestril] 5 mg PO DAILY #0 tablet 08/12/16 Metoprolol Succinate 25 mg PO DAILY #30 tab.er.24h 08/12/16 Spironolactone [Aldactone] 12.5 mg PO DAILY tablet 08/12/16 Allergies Allergy/AdvReac Type Severity Reaction Status Date / Time No Known Allergies Allergy Verified 07/24/16 16:19 Past Medical History - Past Medical History Medical history: Reports: asthma, CHF, COPD, CVA, diabetes, hypertension, renal disease, other Surgical history: Reports: no surgical history Psychiatric history: Reports: no psych history CERTIFIED FIRST ASSISTANT history: Reports: no CERTIFIED FIRST ASSISTANT history - Social History Smoking Status: Never smoker Smokeless Tobacco Status: No Alcohol use: Reports: none Drug use: Reports: none Physical Exam - General Limitations: altered mental status General appearance: other Course Vital Signs Temperature 101.5 F H 10/07/16 09:46 Pulse Rate 75 10/07/16 09:46 Respiratory Rate 18 10/07/16 09:46 Blood Pressure 124/32 10/07/16 09:46 O2 Sat by Pulse Oximetry 100 10/07/16 09:46 Temperature 101.5 F H 10/07/16 09:46 Pulse Rate 72 10/07/16 11:19 Respiratory Rate 18 10/07/16 13:10 Blood Pressure 110/51 10/07/16 12:00 O2 Sat by Pulse Oximetry 96 10/07/16 13:10 Oxygen Delivery Oxygen Delivery Nasal Cannula Medical Decision Making - Lab Data Result diagrams: 10/07/16 10:09 10/07/16 10:09 Lab Results 10/07/16 10/07/16 10/07/16 Range/Units 10:09 10:09 10:09 WBC 14.3 H (4.3-11.1) K/mcL RBC 2.65 L (3.82-4.97) M/mcL Hgb 7.6 L (11.5-15.4) g/dL Hct 24.7 L (35.3-44.9) % MCV 93.2 (83.0-100.0) fL MCH 28.7 (28.0-33.3) pg MCHC 30.8 L (31.6-35.5) g/dL RDW 14.4 (11.5-14.5) % Plt Count 299 (140-400) K/mcL MPV 8.8 L (9.4-12.4) fL Immature Gran % 0.4 (0-4) % Seg Neutrophils % 86.7 % Lymphocytes % 5.1 % Monocytes % 7.5 % Eosinophils % 0.1 % Basophils % 0.2 % Neutrophils # 12.3 H (1.6-8.9) K/mcL Lymphocytes # 0.7 (0.6-4.6) K/mcL Monocytes # 1.1 (0.0-1.3) K/mcL Eosinophils # 0.0 (0.0-0.6) K/mcL Basophils # 0.0 (0.0-0.2) K/mcL PT 13.8 H (9.4-12.1) Seconds INR 1.3 APTT 32.5 (26.0-36.0) Seconds ABG pH (7.32-7.45) pH Units ABG pCO2 (35-45) mmHg ABG pO2 (85-104) mmHg ABG HCO3 (21-27) mEQ/L ABG Total CO2 (20-26) mEq/L ABG O2 Saturation (95-98) % ABG Base Excess (-2.0 to 3.0) mEq/L Blood Gas Modality Inspired O2 % Sodium 134 L (136-145) mEq/L Potassium 6.5 H* (3.5-4.5) mEq/L Chloride 98 (98-109) mEq/L Carbon Dioxide 23 (19-29) mEq/L BUN 103 H (7-20) mg/dL Creatinine 3.37 H (0.57-1.11) mg/dL Est GFR ( Amer) 16 L (> 60) Est GFR (Non-Af Amer) 13 L (> 60) BUN/Creatinine Ratio 31 H (6-26) Glucose 159 H (70-99) mg/dL Calculated Osmolality 314 H (280-300) Lactic Acid (0.5-2.2) mmol/L Calcium 8.7 (8.6-10.8) mg/dL Phosphorus 5.7 H (2.3-4.7) mg/dL Magnesium 2.4 (1.6-2.6) mg/dL Total Bilirubin 0.4 (0.2-1.2) mg/dL AST 15 (5-34) Units/L ALT 7 (0-55) Units/L Alkaline Phosphatase 89 (38-126) Units/L Troponin I (0-0.03) ng/mL Serum Total Protein 7.3 (6.0-8.3) g/dL Albumin 2.5 L (3.5-5.0) g/dL Globulin 4.8 H (2.4-3.5) g/dL Albumin/Globulin Ratio 0.5 L (1.1-2.2) Lipase 23 (8-78) Units/L Urine Color (Yellow) Urine Clarity (Clear) Urine pH (5.0-8.0) pH Units Ur Specific [place] (1.010-1.025) Urine Protein (Neg-Trace) mg/dL Urine Glucose (UA) (Normal) mg/dL Urine Ketones (Negative) mg/dL Urine Blood (Negative) Urine Nitrite (Negative) Urine Bilirubin (Negative) Urine Urobilinogen (Normal) mg/dL Ur Leukocyte Esterase (Negative) Urine Microscopic RBC (0-3) per hpf Urine Microscopic WBC (0-3) per hpf Ur Squamous Epith Cells (None-Few) per lpf Urine Bacteria (None-Few) per hpf Hyaline Casts (None-Few) per lpf Ur Culture Indicated? (NO) 10/07/16 10/07/16 10/07/16 Range/Units 10:09 10:32 11:47 WBC (4.3-11.1) K/mcL RBC (3.82-4.97) M/mcL Hgb (11.5-15.4) g/dL Hct (35.3-44.9) % MCV (83.0-100.0) fL MCH (28.0-33.3) pg MCHC (31.6-35.5) g/dL RDW (11.5-14.5) % Plt Count (140-400) K/mcL MPV (9.4-12.4) fL Immature Gran % (0-4) % Seg Neutrophils % % Lymphocytes % % Monocytes % % Eosinophils % % Basophils % % Neutrophils # (1.6-8.9) K/mcL Lymphocytes # (0.6-4.6) K/mcL Monocytes # (0.0-1.3) K/mcL Eosinophils # (0.0-0.6) K/mcL Basophils # (0.0-0.2) K/mcL PT (9.4-12.1) Seconds INR APTT (26.0-36.0) Seconds ABG pH (7.32-7.45) pH Units ABG pCO2 (35-45) mmHg ABG pO2 (85-104) mmHg ABG HCO3 (21-27) mEQ/L ABG Total CO2 (20-26) mEq/L ABG O2 Saturation (95-98) % ABG Base Excess (-2.0 to 3.0) mEq/L Blood Gas Modality Inspired O2 % Sodium (136-145) mEq/L Potassium (3.5-4.5) mEq/L Chloride (98-109) mEq/L Carbon Dioxide (19-29) mEq/L BUN (7-20) mg/dL Creatinine (0.57-1.11) mg/dL Est GFR ( Amer) (> 60) Est GFR (Non-Af Amer) (> 60) BUN/Creatinine Ratio (6-26) Glucose (70-99) mg/dL Calculated Osmolality (280-300) Lactic Acid 0.7 (0.5-2.2) mmol/L Calcium (8.6-10.8) mg/dL Phosphorus (2.3-4.7) mg/dL Magnesium (1.6-2.6) mg/dL Total Bilirubin (0.2-1.2) mg/dL AST (5-34) Units/L ALT (0-55) Units/L Alkaline Phosphatase (38-126) Units/L Troponin I 0.05 H* (0-0.03) ng/mL Serum Total Protein (6.0-8.3) g/dL Albumin (3.5-5.0) g/dL Globulin (2.4-3.5) g/dL Albumin/Globulin Ratio (1.1-2.2) Lipase (8-78) Units/L Urine Color Yellow (Yellow) Urine Clarity Turbid A (Clear) Urine pH 5.5 (5.0-8.0) pH Units Ur Specific [place] 1.013 (1.010-1.025) Urine Protein 100 H (Neg-Trace) mg/dL Urine Glucose (UA) Normal (Normal) mg/dL Urine Ketones Negative (Negative) mg/dL Urine Blood Trace H (Negative) Urine Nitrite Negative (Negative) Urine Bilirubin Negative (Negative) Urine Urobilinogen Normal (Normal) mg/dL Ur Leukocyte Esterase Large H (Negative) Urine Microscopic RBC 5-15 H (0-3) per hpf Urine Microscopic WBC TNTC H (0-3) per hpf Ur Squamous Epith Cells Many H (None-Few) per lpf Urine Bacteria Many H (None-Few) per hpf Hyaline Casts None Seen (None-Few) per lpf Ur Culture Indicated? YES A (NO) 10/07/16 Range/Units 15:04 WBC (4.3-11.1) K/mcL RBC (3.82-4.97) M/mcL Hgb (11.5-15.4) g/dL Hct (35.3-44.9) % MCV (83.0-100.0) fL MCH (28.0-33.3) pg MCHC (31.6-35.5) g/dL RDW (11.5-14.5) % Plt Count (140-400) K/mcL MPV (9.4-12.4) fL Immature Gran % (0-4) % Seg Neutrophils % % Lymphocytes % % Monocytes % % Eosinophils % % Basophils % % Neutrophils # (1.6-8.9) K/mcL Lymphocytes # (0.6-4.6) K/mcL Monocytes # (0.0-1.3) K/mcL Eosinophils # (0.0-0.6) K/mcL Basophils # (0.0-0.2) K/mcL PT (9.4-12.1) Seconds INR APTT (26.0-36.0) Seconds ABG pH 7.32 (7.32-7.45) pH Units ABG pCO2 57 H (35-45) mmHg ABG pO2 108 H (85-104) mmHg ABG HCO3 29.4 H (21-27) mEQ/L ABG Total CO2 31.1 H (20-26) mEq/L ABG O2 Saturation 98 (95-98) % ABG Base Excess 2.9 (-2.0 to 3.0) mEq/L Blood Gas Modality [place] Inspired O2 28 % Sodium (136-145) mEq/L Potassium (3.5-4.5) mEq/L Chloride (98-109) mEq/L Carbon Dioxide (19-29) mEq/L BUN (7-20) mg/dL Creatinine (0.57-1.11) mg/dL Est GFR ( Amer) (> 60) Est GFR (Non-Af Amer) (> 60) BUN/Creatinine Ratio (6-26) Glucose (70-99) mg/dL Calculated Osmolality (280-300) Lactic Acid (0.5-2.2) mmol/L Calcium (8.6-10.8) mg/dL Phosphorus (2.3-4.7) mg/dL Magnesium (1.6-2.6) mg/dL Total Bilirubin (0.2-1.2) mg/dL AST (5-34) Units/L ALT (0-55) Units/L Alkaline Phosphatase (38-126) Units/L Troponin I (0-0.03) ng/mL Serum Total Protein (6.0-8.3) g/dL Albumin (3.5-5.0) g/dL Globulin (2.4-3.5) g/dL Albumin/Globulin Ratio (1.1-2.2) Lipase (8-78) Units/L Urine Color (Yellow) Urine Clarity (Clear) Urine pH (5.0-8.0) pH Units Ur Specific [place] (1.010-1.025) Urine Protein (Neg-Trace) mg/dL Urine Glucose (UA) (Normal) mg/dL Urine Ketones (Negative) mg/dL Urine Blood (Negative) Urine Nitrite (Negative) Urine Bilirubin (Negative) Urine Urobilinogen (Normal) mg/dL Ur Leukocyte Esterase (Negative) Urine Microscopic RBC (0-3) per hpf Urine Microscopic WBC (0-3) per hpf Ur Squamous Epith Cells (None-Few) per lpf Urine Bacteria (None-Few) per hpf Hyaline Casts (None-Few) per lpf Ur Culture Indicated? (NO) Critical Care Time Critical Care Time: Yes Total Critical Care Time: 30 Attestation: Patient presented with fever. She meets criteria for sepsis. She is anemic with chronic kidney disease. She is hyperkalemic requiring treatment. She will be admitted Attestation Statement - Attestation Attestation: I examined this patient and my medical decision-making was reviewed with the LEGAL EXAMINER/PA/Advanced Practice Nurse/Resident Physician. I agree with the documented findings, disposition and treatment plan as described except to the extent set forth below. [id number] time provided Patient presents with nausea and vomiting. She is febrile. Initial review of labs indicate chronic anemia. Concern for sepsis. Plan of care and management discussed by me with the mid-level provider Lilian. 11:00: Labs indicate anemia, chronic kidney disease, hyperkalemia, UTI
[2016-10-07 10:40] LABS: Albumin 2.5 g/dL (3.5-5.0); Albumin/Globulin Ratio 0.5 (1.1-2.2); Bilirubin,Total 0.4 mg/dL (0.2-1.2); Calcium 8.7 mg/dL (8.6-10.8); Globulin 4.8 g/dL (2.4-3.5); Magnesium 2.4 mg/dL (1.6-2.6); Phosphorous 5.7 mg/dL (2.3-4.7); Total Protein 7.3 g/dL (6.0-8.3)
[2016-10-07 10:42] LABS: Bilirubin,Urine Negative (Negative); Blood,Urine Trace (Negative); Clarity,Urine Turbid (Clear); Color,Urine Yellow (Yellow); Glucose,Urine (UA) Normal (Normal); Ketones,Urine Negative (Negative); Leukocyte Esterase,Urine Large (Negative); Nitrite,Urine Negative (Negative); PH,Urine 5.5 pH Units (5.0-8.0); Protein,Urine 100 mg/dL (Neg-Trace); Specific Gravity,Urine 1.013 (1.010-1.025); Urobilinogen,Urine Normal (Normal)
[2016-10-07 10:43] LABS: Potassium 6.5 mEq/L (3.5-4.5)
[2016-10-07 10:45] LABS: Bacteria,Urine Many per hpf (None-Few); Hyaline Casts,Urine None Seen per lpf (None-Few); Squamous Epithelial Cell,Urine Many per lpf (None-Few); WBC,Urine TNTC per hpf (0-3)
[2016-10-07] MEDS ORDERED: Sodium Bicarbonate 50 MEQ/50 ML VIAL IVP ONE (10:46)
[2016-10-07] MEDS ORDERED: Insulin Regular, Human 100 UNIT/ML IV ONE (10:46)
[2016-10-07] MEDS ORDERED: Calcium Gluconate 1,000 MG in D5% in Water 100 ML IVPB ONE (10:46)
[2016-10-07] MEDS ORDERED: *HR* Dextrose 25% in Water (Syg) 10 ML SYRINGE IVP ONE (10:46)
[2016-10-07] MEDS ORDERED: Piperacillin/Tazobactam 3.375 GM in D5% in Water (Mini-Bag+) 100 ML IVPB ONE (10:49)
--- NOTE | 2016-10-07 10:51 | Emergency Department Note ---
Disposition Clinical Impression: Hyperkalemia Sepsis Qualifiers: Sepsis type: sepsis due to unspecified organism Qualified Code(s): A41.9 - Sepsis, unspecified organism UTI (urinary tract infection) Qualifiers: Urinary tract infection type: site unspecified Hematuria presence: without hematuria Qualified Code(s): N39.0 - Urinary tract infection, site not specified ARF (acute renal failure) Qualifiers: Acute renal failure type: unspecified Qualified Code(s): N17.9 - Acute kidney failure, unspecified Anemia Qualifiers: Anemia type: unspecified type Qualified Code(s): D64.9 - Anemia, unspecified Disposition: Admitted As Inpatient Condition: Fair General Adult HPI - General Chief complaint: ED Nausea/Vomiting/Diarrhea Stated complaint: Fever/N/V Time Seen by Provider: 10/07/16 09:48 Source: EMS Mode of arrival: EMS Limitations: altered mental status Nursing Notes Reviewed: Yes Vital Signs Reviewed: Yes - History of Present Illness Pt Subjective Complaint: "I don't feel good." Onset (ago): hour(s) (Patient states that she has been vomiting since early this morning.) Location: other (patient denies pain) Radiation: non-radiation Pain Scale: 0 Consistency: other (no complaints of pain) Improves with: nothing Worsens with: nothing Associated symptoms: Reports: confusion, fever/chills, loss of appetite, malaise , nausea/vomiting. Denies: chest pain, cough, diaphoresis, headaches, rash, seizure, shortness of breath, syncope, weakness Treatments Prior to Arrival: none - Related Data Home Medications Medication Instructions Recorded Confirmed Cholecalciferol (Vitamin D3) 50,000 unit PO QWEEK 05/30/16 10/07/16 [Vitamin D3] Gabapentin [Neurontin] 300 mg PO BID 05/30/16 10/07/16 Hydralazine HCl 100 mg PO Q8H 05/30/16 10/07/16 Insulin ASPART [NovoLOG] 1 - 5 unit SQ ACHS 05/30/16 10/07/16 Isosorbide MONOnitrate (24 HR) 30 mg PO DAILY 05/30/16 10/07/16 [Imdur] Aspirin 81 mg PO DAILY 07/10/16 10/07/16 Insulin DETEMIR [Levemir] 50 unit SQ QAM 07/10/16 10/07/16 Insulin DETEMIR [Levemir] 55 unit SQ HS 07/10/16 10/07/16 Atorvastatin Calcium [Lipitor] 80 mg PO DAILY 07/31/16 10/07/16 Budesonide/Formoterol 160/4.5 2 puff IH BID 07/31/16 10/07/16 [Symbicort 160/4.5] ClonazePAM [Klonopin] 1 mg PO TID PRN 07/31/16 10/07/16 Clopidogrel [Plavix] 75 mg PO DAILY 07/31/16 10/07/16 Levothyroxine [Synthroid] 25 mcg PO DAILY 07/31/16 10/07/16 Loperamide [Imodium] 2 mg PO Q4HR PRN 07/31/16 10/07/16 Pantoprazole Sodium [Protonix] 40 mg PO DAILY 07/31/16 10/07/16 Saline Nasal [place] [[place] Nasal 2 spray NS TID 07/31/16 10/07/16 [place]] Tiotropium [Spiriva] 18 mcg IH DAILY 07/31/16 10/07/16 Citalopram [CeleXA] 20 mg PO DAILY 10/07/16 10/07/16 Furosemide [Lasix] 20 mg PO QPM 10/07/16 10/07/16 Loratadine [Claritin] 10 mg PO DAILY 10/07/16 10/07/16 Multivitamin [One Daily 1 tab PO DAILY 10/07/16 10/07/16 Multivitamin] Previous Rx's Medication Instructions Recorded CloNIDine HCl [Clonidine HCl] 0.2 mg PO BID #60 tab 06/04/16 Acetaminophen [Tylenol] 650 mg PO Q6HR PRN #0 tablet 07/20/16 Ipratropium/Albuterol Neb [Duoneb] 3 ml IH [id number] inhsol 07/20/16 Tramadol HCl [Ultram] 50 mg PO QID PRN #10 tab 07/20/16 Furosemide [Lasix] 40 mg PO BID #0 08/12/16 Lisinopril [Zestril] 5 mg PO DAILY #0 tablet 08/12/16 Metoprolol Succinate 25 mg PO DAILY #30 tab.er.24h 08/12/16 Spironolactone [Aldactone] 12.5 mg PO DAILY tablet 08/12/16 Allergies Allergy/AdvReac Type Severity Reaction Status Date / Time No Known Allergies Allergy Verified 07/24/16 16:19 All systems ED: reviewed and negative except as stated. Constitutional: Reports: fever, chills Eyes: Denies: vision change ENT ED: Denies: ear pain, throat pain, congestion, dysphagia Cardiovascular: Denies: chest pain Respiratory: Denies: cough, dyspnea, sputum production Gastrointestinal: Reports: as per HPI, vomiting. Denies: abdominal pain Genitourinary: Denies: urgency, dysuria, hematuria Musculoskeletal: Denies: back pain, neck pain, joint swelling, arthralgia Integumentary: Denies: rash Neurological: Reports: as per HPI, confusion. Denies: headache, numbness, paresthesias, vertigo Past Medical History - Past Medical History Source: old records reviewed, nursing notes reviewed Medical history: Reports: asthma, CHF, COPD, CVA, diabetes, hypertension, renal disease, other Surgical history: Reports: no surgical history Psychiatric history: Reports: no psych history CORRECTIONAL SUPERVISOR LIEUTENANT history: Reports: no CORRECTIONAL SUPERVISOR LIEUTENANT history - Social History Smoking Status: Never smoker Smokeless Tobacco Status: No Alcohol use: Reports: none Drug use: Reports: none Physical Exam - General Limitations: altered mental status General appearance: alert, in no apparent distress, other (confused) - Head Head exam: atraumatic, normocephalic, normal inspection - Eye Eye exam: Present: normal appearance, PERRL. Absent: scleral icterus, conjunctival injection, periorbital swelling - ENT ENT exam: mucous membranes dry - Neck Neck exam: Present: normal inspection, full ROM. Absent: meningismus, lymphadenopathy - Chest Chest inspection: Present: normal inspection - Respiratory Respiratory exam: Present: normal lung sounds bilaterally. Absent: respiratory distress, wheezes, stridor, accessory muscle use, prolonged expiratory phase - Cardiovascular Cardiovascular exam: Present: regular rate, normal rhythm - Abdominal Exam Abdominal exam: Present: soft, Non-Tender. Absent: distention, guarding, rebound, rigidity - Extremities Exam Extremities exam: Present: normal capillary refill, pedal edema (Right foot mildly edematous). Absent: tenderness, calf tenderness - Expanded Lower Extremity Exam Knee exam: Present: normal inspection, full ROM, knee extension intact. Absent : tenderness, swelling Lower leg exam: Present: normal inspection, erythema (mild, bilateral, symmetric anterior and medial distal), Achilles tendon intact. Absent: tenderness, swelling, abrasion, ecchymosis, Homans' sign Ankle exam: Present: normal inspection, full ROM. Absent: tenderness, swelling Foot/toe exam: Present: full ROM, swelling (right foot). Absent: tenderness, ecchymosis, deformity, erythema Neurovascular/Tendon exam: Present: normal capillary refill. Absent: pulse deficit, motor deficit, sensory deficit, tendon deficit, extremity cold to touch , pallor Gait: not tested/not observed - Back Exam Back exam: Present: normal inspection - Neurological Exam Neurological exam: Present: alert - Expanded Neurological Exam Patient oriented to: Present: person Speech: Present: fluid speech Cranial nerves: EOM function (II, III, IV, ): Normal, facial sensation (V): Normal, facial palsy (VII): Normal, gag reflex (IX): Normal, spinal accessory function (XI): Normal, tongue deviation (XII): Normal (no deviation) Motor strength - LUE: 4/5 Motor strength - RUE: 4/5 Motor strength - LLE: 4/5 Motor strength - RLE: 4/5 Upper motor neuron exam: lino neglect: Absent bilaterally, pronator drift: Absent bilaterally, Babinski sign: Absent bilaterally, sensory extinction: Absent bilaterally Sensory exam upper extremity: light touch: Normal Sensory exam lower extremity: light touch: Normal Coma Scale Eye Opening: Spontaneous Coma Scale Motor Response: Obeys Commands Coma Scale Verbal Response: Confused Coma Scale Total: 14 - Psychiatric Psychiatric exam: Present: normal mood, flat affect - Skin Skin exam: Present: warm, dry, intact, normal color, other (coccyxgeal decubitis ulcer clean dressing) Course Course Narrative: Patient was sent to the ER from [facility] by EMS for evaluation of fever, vomiting and generalized malaise. She is confused. Will check labs, CXR and initiate the sepsis protocol. Patient's urine appears to be the cause of sepsis. Most recent culture result grew Proteus, sensitive to Zosyn. Will start this and get patient admittied. She also has stable anemia, ARF, Hyperkalemia. He ECG shows normal sinus rhythm. She was given meds to reduce potassium and fever. Case has been discussed with Dr. Goodman and Dr. Tyler. Patient is admitted. Vital Signs Temperature 101.5 F H 10/07/16 09:46 Pulse Rate 75 10/07/16 09:46 Respiratory Rate 18 10/07/16 09:46 Blood Pressure 124/32 10/07/16 09:46 O2 Sat by Pulse Oximetry 100 10/07/16 09:46 Temperature 101.5 F H 10/07/16 09:46 Pulse Rate 72 10/07/16 11:19 Respiratory Rate 18 10/07/16 12:00 Blood Pressure 110/51 10/07/16 12:00 O2 Sat by Pulse Oximetry 96 10/07/16 11:19 Oxygen Delivery Oxygen Delivery Nasal Cannula Medical Decision Making - Lab Data Result diagrams: 10/07/16 10:09 10/07/16 10:09 Lab Results 10/07/16 10/07/16 10/07/16 Range/Units 10:09 10:09 10:09 WBC 14.3 H (4.3-11.1) K/mcL RBC 2.65 L (3.82-4.97) M/mcL Hgb 7.6 L (11.5-15.4) g/dL Hct 24.7 L (35.3-44.9) % MCV 93.2 (83.0-100.0) fL MCH 28.7 (28.0-33.3) pg MCHC 30.8 L (31.6-35.5) g/dL RDW 14.4 (11.5-14.5) % Plt Count 299 (140-400) K/mcL MPV 8.8 L (9.4-12.4) fL Immature Gran % 0.4 (0-4) % Seg Neutrophils % 86.7 % Lymphocytes % 5.1 % Monocytes % 7.5 % Eosinophils % 0.1 % Basophils % 0.2 % Neutrophils # 12.3 H (1.6-8.9) K/mcL Lymphocytes # 0.7 (0.6-4.6) K/mcL Monocytes # 1.1 (0.0-1.3) K/mcL Eosinophils # 0.0 (0.0-0.6) K/mcL Basophils # 0.0 (0.0-0.2) K/mcL PT 13.8 H (9.4-12.1) Seconds INR 1.3 APTT 32.5 (26.0-36.0) Seconds Sodium 134 L (136-145) mEq/L Potassium 6.5 H* (3.5-4.5) mEq/L Chloride 98 (98-109) mEq/L Carbon Dioxide 23 (19-29) mEq/L BUN 103 H (7-20) mg/dL Creatinine 3.37 H (0.57-1.11) mg/dL Est GFR ( Amer) 16 L (> 60) Est GFR (Non-Af Amer) 13 L (> 60) BUN/Creatinine Ratio 31 H (6-26) Glucose 159 H (70-99) mg/dL Calculated Osmolality 314 H (280-300) Calcium 8.7 (8.6-10.8) mg/dL Phosphorus 5.7 H (2.3-4.7) mg/dL Magnesium 2.4 (1.6-2.6) mg/dL Total Bilirubin 0.4 (0.2-1.2) mg/dL AST 15 (5-34) Units/L ALT 7 (0-55) Units/L Alkaline Phosphatase 89 (38-126) Units/L Troponin I (0-0.03) ng/mL Serum Total Protein 7.3 (6.0-8.3) g/dL Albumin 2.5 L (3.5-5.0) g/dL Globulin 4.8 H (2.4-3.5) g/dL Albumin/Globulin Ratio 0.5 L (1.1-2.2) Lipase 23 (8-78) Units/L Urine Color (Yellow) Urine Clarity (Clear) Urine pH (5.0-8.0) pH Units Ur Specific [place] (1.010-1.025) Urine Protein (Neg-Trace) mg/dL Urine Glucose (UA) (Normal) mg/dL Urine Ketones (Negative) mg/dL Urine Blood (Negative) Urine Nitrite (Negative) Urine Bilirubin (Negative) Urine Urobilinogen (Normal) mg/dL Ur Leukocyte Esterase (Negative) Urine Microscopic RBC (0-3) per hpf Urine Microscopic WBC (0-3) per hpf Ur Squamous Epith Cells (None-Few) per lpf Urine Bacteria (None-Few) per hpf Hyaline Casts (None-Few) per lpf Ur Culture Indicated? (NO) 10/07/16 10/07/16 Range/Units 10:09 10:32 WBC (4.3-11.1) K/mcL RBC (3.82-4.97) M/mcL Hgb (11.5-15.4) g/dL Hct (35.3-44.9) % MCV (83.0-100.0) fL MCH (28.0-33.3) pg MCHC (31.6-35.5) g/dL RDW (11.5-14.5) % Plt Count (140-400) K/mcL MPV (9.4-12.4) fL Immature Gran % (0-4) % Seg Neutrophils % % Lymphocytes % % Monocytes % % Eosinophils % % Basophils % % Neutrophils # (1.6-8.9) K/mcL Lymphocytes # (0.6-4.6) K/mcL Monocytes # (0.0-1.3) K/mcL Eosinophils # (0.0-0.6) K/mcL Basophils # (0.0-0.2) K/mcL PT (9.4-12.1) Seconds INR APTT (26.0-36.0) Seconds Sodium (136-145) mEq/L Potassium (3.5-4.5) mEq/L Chloride (98-109) mEq/L Carbon Dioxide (19-29) mEq/L BUN (7-20) mg/dL Creatinine (0.57-1.11) mg/dL Est GFR ( Amer) (> 60) Est GFR (Non-Af Amer) (> 60) BUN/Creatinine Ratio (6-26) Glucose (70-99) mg/dL Calculated Osmolality (280-300) Calcium (8.6-10.8) mg/dL Phosphorus (2.3-4.7) mg/dL Magnesium (1.6-2.6) mg/dL Total Bilirubin (0.2-1.2) mg/dL AST (5-34) Units/L ALT (0-55) Units/L Alkaline Phosphatase (38-126) Units/L Troponin I 0.05 H* (0-0.03) ng/mL Serum Total Protein (6.0-8.3) g/dL Albumin (3.5-5.0) g/dL Globulin (2.4-3.5) g/dL Albumin/Globulin Ratio (1.1-2.2) Lipase (8-78) Units/L Urine Color Yellow (Yellow) Urine Clarity Turbid A (Clear) Urine pH 5.5 (5.0-8.0) pH Units Ur Specific [place] 1.013 (1.010-1.025) Urine Protein 100 H (Neg-Trace) mg/dL Urine Glucose (UA) Normal (Normal) mg/dL Urine Ketones Negative (Negative) mg/dL Urine Blood Trace H (Negative) Urine Nitrite Negative (Negative) Urine Bilirubin Negative (Negative) Urine Urobilinogen Normal (Normal) mg/dL Ur Leukocyte Esterase Large H (Negative) Urine Microscopic RBC 5-15 H (0-3) per hpf Urine Microscopic WBC TNTC H (0-3) per hpf Ur Squamous Epith Cells Many H (None-Few) per lpf Urine Bacteria Many H (None-Few) per hpf Hyaline Casts None Seen (None-Few) per lpf Ur Culture Indicated? YES A (NO)
[2016-10-07] MEDS: 0.9 % Sodium Chloride 1,000 ML IVC SCH ×2 (11:13→15:54)
[2016-10-07] MEDS ORDERED: Acetaminophen 650 MG RECTAL SUPP RC ONE (11:33)
[2016-10-07] MEDS ORDERED: Acetaminophen 325 MG RECTAL SUPP RC ONE (11:33)
[2016-10-07] MEDS ORDERED: Lactulose Oral Soln 20 GM/30 ML UDC PO ONE (14:21)
[2016-10-07] MEDS ORDERED: Acetaminophen 325 MG TABLET PO PRN (14:25)
[2016-10-07] MEDS ORDERED: Naloxone 0.4 MG/ML INJ IVP PRN (14:25)
[2016-10-07] MEDS ORDERED: D5% in Water 1,000 ML IV PRN (14:31)
[2016-10-07] MEDS ORDERED: Dextrose Gel 15 GM PO PRN ×2 (14:31)
--- NOTE | 2016-10-07 14:38 | Internal Med History&Physical ---
Date of Encounter: 10/07/16 Time of Encounter: 13:45 Internal Medicine - H&P: HPI Chief complaint: Confusion, fever. Admitted From: Long-term Nursing Facility Plans for Post Hospital Care: Transfer Care Home Facility History of present illness: Ms. Dsouza is a 71 year old female Resident of [facility] was brought in by ambulance to evaluate fever, vomiting and generalized malaise. She very drowsy, and only partially arousable, drifting back to sleep after awakening with sternal pressure. ED note report she was confused at admission. Somehow it appears she was awake enough to get an oral dose of Kayexylate in the ED. Initial work-up in the ED suggest sepsis of urinary origin, ARF, and hyperkalemia and stable chronic anemia of chronic renal disease. I am unable to obtain any history from the patient. Patient's urine appears to be the cause of sepsis. Most recent culture result grew Proteus, sensitive to Zosyn. Will start this and get patient admittied. She also has stable anemia, . He ECG shows normal sinus rhythm. She was given meds to reduce potassium and fever. Case has been discussed with Dr. Goodman and Dr. Tyler. Patient is admitted. ROS: Unable to obatin due to patient's status Family history: Unable to obtain due to patient's status Allergies: no known drug allergies. Vital Signs Temperature 101.5 F H 10/07/16 09:46 Pulse Rate 75 10/07/16 09:46 Respiratory Rate 18 10/07/16 09:46 Blood Pressure 124/32 10/07/16 09:46 O2 Sat by Pulse Oximetry 100 10/07/16 09:46 Temperature 101.5 F H 10/07/16 09:46 Pulse Rate 72 10/07/16 11:19 Respiratory Rate 18 10/07/16 12:00 Blood Pressure 110/51 10/07/16 12:00 O2 Sat by Pulse Oximetry 96 10/07/16 11:19 Not in distress, deep sleep, partly arousable with sternal pressure. Mouth breathing Not pale, anicteric, afebrile, acyanotic. Moist mucosa, JVD not elevated. HEENT: No JVD, no cervical lymphadenopathy, Chest : CTAB Heart: RRR, HS1/2, no m/r/g. Abdomen: soft, non-tender, no guarding, no rebound, no masses, BS+ : Unable to assess [employer]: somnolent, partially arousable with deep sternal pressure, but soon drifts back to sleep. Skin: no active skin lesion. no rash Extremities: chronic non-pitting pedal edema, normal pedal pulses Lab Results 10/07/16 10/07/16 10/07/16 Range/Units 10:09 10:09 10:09 WBC 14.3 H (4.3-11.1) K/mcL RBC 2.65 L (3.82-4.97) M/mcL Hgb 7.6 L (11.5-15.4) g/dL Hct 24.7 L (35.3-44.9) % MCV 93.2 (83.0-100.0) fL MCH 28.7 (28.0-33.3) pg MCHC 30.8 L (31.6-35.5) g/dL RDW 14.4 (11.5-14.5) % Plt Count 299 (140-400) K/mcL MPV 8.8 L (9.4-12.4) fL Immature Gran % 0.4 (0-4) % Seg Neutrophils % 86.7 % Lymphocytes % 5.1 % Monocytes % 7.5 % Eosinophils % 0.1 % Basophils % 0.2 % Neutrophils # 12.3 H (1.6-8.9) K/mcL Lymphocytes # 0.7 (0.6-4.6) K/mcL Monocytes # 1.1 (0.0-1.3) K/mcL Eosinophils # 0.0 (0.0-0.6) K/mcL Basophils # 0.0 (0.0-0.2) K/mcL PT 13.8 H (9.4-12.1) Seconds INR 1.3 APTT 32.5 (26.0-36.0) Seconds Sodium 134 L (136-145) mEq/L Potassium 6.5 H* (3.5-4.5) mEq/L Chloride 98 (98-109) mEq/L Carbon Dioxide 23 (19-29) mEq/L BUN 103 H (7-20) mg/dL Creatinine 3.37 H (0.57-1.11) mg/dL Est GFR ( Amer) 16 L (> 60) Est GFR (Non-Af Amer) 13 L (> 60) BUN/Creatinine Ratio 31 H (6-26) Glucose 159 H (70-99) mg/dL Calculated Osmolality 314 H (280-300) Calcium 8.7 (8.6-10.8) mg/dL Phosphorus 5.7 H (2.3-4.7) mg/dL Magnesium 2.4 (1.6-2.6) mg/dL Total Bilirubin 0.4 (0.2-1.2) mg/dL AST 15 (5-34) Units/L ALT 7 (0-55) Units/L Alkaline Phosphatase 89 (38-126) Units/L Troponin I (0-0.03) ng/mL Serum Total Protein 7.3 (6.0-8.3) g/dL Albumin 2.5 L (3.5-5.0) g/dL Globulin 4.8 H (2.4-3.5) g/dL Albumin/Globulin Ratio 0.5 L (1.1-2.2) Lipase 23 (8-78) Units/L Urine Color (Yellow) Urine Clarity (Clear) Urine pH (5.0-8.0) pH Units Ur Specific [place] (1.010-1.025) Urine Protein (Neg-Trace) mg/dL Urine Glucose (UA) (Normal) mg/dL Urine Ketones (Negative) mg/dL Urine Blood (Negative) Urine Nitrite (Negative) Urine Bilirubin (Negative) Urine Urobilinogen (Normal) mg/dL Ur Leukocyte Esterase (Negative) Urine Microscopic RBC (0-3) per hpf Urine Microscopic WBC (0-3) per hpf Ur Squamous Epith Cells (None-Few) per lpf Urine Bacteria (None-Few) per hpf Hyaline Casts (None-Few) per lpf Ur Culture Indicated? (NO) 10/07/16 10/07/16 Range/Units 10:09 10:32 WBC (4.3-11.1) K/mcL RBC (3.82-4.97) M/mcL Hgb (11.5-15.4) g/dL Hct (35.3-44.9) % MCV (83.0-100.0) fL MCH (28.0-33.3) pg MCHC (31.6-35.5) g/dL RDW (11.5-14.5) % Plt Count (140-400) K/mcL MPV (9.4-12.4) fL Immature Gran % (0-4) % Seg Neutrophils % % Lymphocytes % % Monocytes % % Eosinophils % % Basophils % % Neutrophils # (1.6-8.9) K/mcL Lymphocytes # (0.6-4.6) K/mcL Monocytes # (0.0-1.3) K/mcL Eosinophils # (0.0-0.6) K/mcL Basophils # (0.0-0.2) K/mcL PT (9.4-12.1) Seconds INR APTT (26.0-36.0) Seconds Sodium (136-145) mEq/L Potassium (3.5-4.5) mEq/L Chloride (98-109) mEq/L Carbon Dioxide (19-29) mEq/L BUN (7-20) mg/dL Creatinine (0.57-1.11) mg/dL Est GFR ( Amer) (> 60) Est GFR (Non-Af Amer) (> 60) BUN/Creatinine Ratio (6-26) Glucose (70-99) mg/dL Calculated Osmolality (280-300) Calcium (8.6-10.8) mg/dL Phosphorus (2.3-4.7) mg/dL Magnesium (1.6-2.6) mg/dL Total Bilirubin (0.2-1.2) mg/dL AST (5-34) Units/L ALT (0-55) Units/L Alkaline Phosphatase (38-126) Units/L Troponin I 0.05 H* (0-0.03) ng/mL Serum Total Protein (6.0-8.3) g/dL Albumin (3.5-5.0) g/dL Globulin (2.4-3.5) g/dL Albumin/Globulin Ratio (1.1-2.2) Lipase (8-78) Units/L Urine Color Yellow (Yellow) Urine Clarity Turbid A (Clear) Urine pH 5.5 (5.0-8.0) pH Units Ur Specific [place] 1.013 (1.010-1.025) Urine Protein 100 H (Neg-Trace) mg/dL Urine Glucose (UA) Normal (Normal) mg/dL Urine Ketones Negative (Negative) mg/dL Urine Blood Trace H (Negative) Urine Nitrite Negative (Negative) Urine Bilirubin Negative (Negative) Urine Urobilinogen Normal (Normal) mg/dL Ur Leukocyte Esterase Large H (Negative) Urine Microscopic RBC 5-15 H (0-3) per hpf Urine Microscopic WBC TNTC H (0-3) per hpf Ur Squamous Epith Cells Many H (None-Few) per lpf Urine Bacteria Many H (None-Few) per hpf Hyaline Casts None Seen (None-Few) per lpf Ur Culture Indicated? YES A (NO) CXR: increased interstitial opacification, most consistent with mild pulmonary edema. IMP Acute encephalopathy related to UTI Sepsis of urinary origin, probable pyelonephritis, and/or bacteremia Acute renal failure Hyperkalemia: related to renal failure, AKIN and Aldactone Mild fluid overload evident in mild pulmonary edema Elevated troponin related to acute on CKD, and/or sepsis Chronic morbidities DM2 on insulin CKDIII COPD Probable JOSEFINA Morbid obesity HTN CAD HLD Chronic pain state Decubitus coccygeal ulcer (reportedly stage 2) PLAN Admit Aspiration precautions till full awake Insert NG tube ABG Start BiPAP IV Bicarb drip 75 mEQ in 1000 mls of 0.45 ns @ 75. Kayexylate, 20 g stat Lactulose 30 mls stat Zosyn 3.375 Q12H Renal sonogram may be difficult due to patient status (especially size), obtain CT abdomen wo contrast. Await urine and blood culture Repeat BMP @ 1800 Consult nephrology. Insulin: give 50% of daily Levemir dose (i.e 28u AM and 25u PM), moderate dose sliding scale QAC, and low dose QHS. Hold Lisinopril, aldactone IV Lasix 60mg QD, first dose now, will help with hyperkalemia Troponin in the AM Continue other medication essential medications of chronic morbidities, give via N-G. Heparin 5000u Q12H Wound care for decubitus ulcer. i AM UNABLE TO DISCUSS MY ASSESSMENT WITH PATIENT GIVEN HER MENTAL status. She is johnathon risk for full blown sepsis, currently mentation is depressed. Past Med Surg Social Fam HX - Past Medical History Medical history: asthma, CHF, COPD, CVA, diabetes, hypertension, renal disease, other Psychiatric history: no psych history - Past Surgical History Surgical History: no surgical history - Social History Smoking Status: Never smoker Smokeless Tobacco Status: No Alcohol use: none Drug use: none - Family History Father Living Status: Hx Family Cancer: Yes Mother Living Status: Hx Family Cardiac Disorders: No Hx Family Respiratory Disorders: No Hx Family Cancer: Yes Hx Family GI Disorders: No Hx Family Endocrine Disorder: No Hx Family Neuromuscular Disorders: No Hx Family Neurologic Disorders: No Hx Family HEENT Disorders: No Hx Family Autoimmune Disorders: No Internal Medicine - H&P: Meds Cholecalciferol (Vitamin D3) [Vitamin D3] 50,000 unit PO QWEEK 05/30/16 [History ] Gabapentin [Neurontin] 300 mg PO BID 05/30/16 [History] Hydralazine HCl 100 mg PO Q8H 05/30/16 [History] Insulin ASPART [NovoLOG] 1 - 5 unit SQ ACHS 05/30/16 [History] Isosorbide MONOnitrate (24 HR) [Imdur] 30 mg PO DAILY 05/30/16 [History] CloNIDine HCl [Clonidine HCl] 0.2 mg PO BID #60 tab 06/04/16 [Rx] Aspirin 81 mg PO DAILY 07/10/16 [History] Insulin DETEMIR [Levemir] 50 unit SQ QAM 07/10/16 [History] Insulin DETEMIR [Levemir] 55 unit SQ HS 07/10/16 [History] Acetaminophen [Tylenol] 650 mg PO Q6HR PRN #0 tablet 07/20/16 [Rx] Ipratropium/Albuterol Neb [Duoneb] 3 ml IH [id number] inhsol 07/20/16 [Rx] Tramadol HCl [Ultram] 50 mg PO QID PRN #10 tab 07/20/16 [Rx] Atorvastatin Calcium [Lipitor] 80 mg PO DAILY 07/31/16 [History] Budesonide/Formoterol 160/4.5 [Symbicort 160/4.5] 2 puff IH BID 07/31/16 [ History] ClonazePAM [Klonopin] 1 mg PO TID PRN 07/31/16 [History] Clopidogrel [Plavix] 75 mg PO DAILY 07/31/16 [History] Levothyroxine [Synthroid] 25 mcg PO DAILY 07/31/16 [History] Loperamide [Imodium] 2 mg PO Q4HR PRN 07/31/16 [History] Pantoprazole Sodium [Protonix] 40 mg PO DAILY 07/31/16 [History] Saline Nasal [place] [Alfalfa Nasal [place]] 2 spray NS TID 07/31/16 [History] Tiotropium [Spiriva] 18 mcg IH DAILY 07/31/16 [History] Furosemide [Lasix] 40 mg PO BID #0 08/12/16 [Rx] Lisinopril [Zestril] 5 mg PO DAILY #0 tablet 08/12/16 [Rx] Metoprolol Succinate 25 mg PO DAILY #30 tab.er.24h 08/12/16 [Rx] Spironolactone [Aldactone] 12.5 mg PO DAILY tablet 08/12/16 [Rx] Citalopram [CeleXA] 20 mg PO DAILY 10/07/16 [History] Furosemide [Lasix] 20 mg PO QPM 10/07/16 [History] Loratadine [Claritin] 10 mg PO DAILY 10/07/16 [History] Multivitamin [One Daily Multivitamin] 1 tab PO DAILY 10/07/16 [History] Allergies No Known Allergies Allergy (Verified 07/24/16 16:19) All Systems PM: A 10-system review of systems was performed and is negative for pertinent findings except as documented above in the HPI. - Constitutional Vitals: Temp Pulse Resp BP Pulse Ox 101.5 F H 72 18 110/51 96 10/07/16 09:46 10/07/16 11:19 10/07/16 12:00 10/07/16 12:00 10/07/16 11:19 Internal Med - H&P Results - Labs CBC & Chem 7: 10/07/16 10:09 10/07/16 10:09
[2016-10-07 15:15] LABS: ABG Base Excess 2.9 mEq/L (-2.0 to 3.0); ABG HCO3 29.4 mEQ/L (21-27); ABG Oxygen Saturation 98 % (95-98); ABG PCO2 57 mmHg (35-45); ABG PH 7.32 pH Units (7.32-7.45); ABG PO2 108 mmHg (85-104); ABG TCO2 31.1 mEq/L (20-26)
[2016-10-07 15:19] LABS: Blood Gas FiO2 28 %
[2016-10-07] MEDS: hydrALAZINE 25 MG TABLET PO SCH ×2 (16:01→23:52)
[2016-10-07] MEDS: Ipratropium/Albuterol Neb 3 ML IH SCH ×3 (16:15→22:27)
[2016-10-07] MEDS: Insulin LISPRO 300 UNITS/3 ML VIAL SQ SCH ×2 (16:17→20:52)
[2016-10-07] MEDS: Furosemide 40 MG/4 ML VIAL IVP SCH (16:17)
[2016-10-07] MEDS ORDERED: Insulin LISPRO 300 UNITS/3 ML VIAL SQ SCH (16:30)
[2016-10-07] MEDS: *HR* Heparin 5,000 UNIT/ML VIAL SQ SCH (18:07)
[2016-10-07] MEDS: Sodium Bicarbonate 75 MEQ in 0.45 % Sodium Chloride 1,000 ML IVC SCH (18:20)
[2016-10-07] MEDS: Gabapentin 300 MG CAPSULE PO SCH (20:48)
[2016-10-07] MEDS: cloNIDine HCl 0.1 MG TABLET PO SCH (20:49)
[2016-10-07] MEDS: Insulin DETEMIR 100 UNIT/ML X5UNITS SQ SCH (20:52)
[2016-10-07] MEDS: traMADol 50 MG TABLET PO PRN (20:53)
[2016-10-07] MEDS ORDERED: INSULIN DETEMIR 55 UNIT SQ SCH (21:00)
[2016-10-07] MEDS ORDERED: Furosemide 40 MG TABLET PO SCH (21:00)
[2016-10-07 21:19] LABS: Calcium 8.6 mg/dL (8.6-10.8); Potassium 5.8 mEq/L (3.5-4.5)
[2016-10-07] MEDS: Budesonide/Formoterol 160/4.5 MDI IH SCH (22:27)
[2016-10-07] MEDS: Piperacillin/Tazobactam 3.375 GM in D5% in Water (Mini-Bag+) 100 ML IVPB SCH (23:52)
[2016-10-08 01:46] LABS: blaKPC Carbapenem-Resist Gene Not Detected (Not Detect)
[2016-10-08 01:47] LABS: Acinetobacter baumannii by PCR Not Detected (Not Detect); Candida albicans by PCR Not Detected (Not Detect); Candida glabrata by PCR Not Detected (Not Detect); Candida krusei by PCR Not Detected (Not Detect); Candida parapsilosis by PCR Not Detected (Not Detect); Candida tropicalis by PCR Not Detected (Not Detect); Enterococcus by PCR Not Detected (Not Detect); Klebsiella oxytoca by PCR Not Detected (Not Detect); Klebsiella pneumoniae by PCR Not Detected (Not Detect); Pseudomonas aeruginosa by PCR Not Detected (Not Detect); Serratia marcescens by PCR Not Detected (Not Detect); Staphylococcus aureus by PCR Not Detected (Not Detect); Streptococcus agalactiae(B)PCR Not Detected (Not Detect); Streptococcus by PCR Not Detected (Not Detect); Streptococcus pneumoniae PCR Not Detected (Not Detect); Streptococcus pyogenes (A) PCR Not Detected (Not Detect)
[2016-10-08 01:50] LABS: Escherichia coli by PCR ***DETECTED*** (Not Detect)
[2016-10-08 01:52] LABS: mecA Methicillin-Resist Gene Not Detected (Not Detect); vanA/B Vancomycin-Resist Genes Not Detected (Not Detect)
[2016-10-08] MEDS: Ipratropium/Albuterol Neb 3 ML IH SCH ×4 (03:18→22:45)
[2016-10-08] MEDS: hydrALAZINE 25 MG TABLET PO SCH ×2 (06:19→21:32)
[2016-10-08] MEDS: Levothyroxine 25 MCG TABLET PO SCH (06:20)
[2016-10-08] MEDS: *HR* Heparin 5,000 UNIT/ML VIAL SQ SCH ×2 (06:21→18:47)
[2016-10-08 08:22] LABS: Calcium 8.2 mg/dL (8.6-10.8); Potassium 5.1 mEq/L (3.5-4.5)
[2016-10-08] MEDS ORDERED: NON-FORMULARY MEDICATION 1 EACH EACH (Insulin Detemir 50 UNIT) SQ SCH (09:00)
[2016-10-08] MEDS: Aspirin 81 MG TAB.CHEW PO SCH (10:02)
[2016-10-08] MEDS: Sodium Bicarbonate 75 MEQ in 0.45 % Sodium Chloride 1,000 ML IVC SCH (10:02)
[2016-10-08] MEDS: Multivit/Ca/Min/Fe/FA 1 TAB TABLET PO SCH (10:03)
[2016-10-08] MEDS: Loratadine 10 MG TABLET PO SCH (10:03)
[2016-10-08] MEDS: Gabapentin 300 MG CAPSULE PO SCH (10:04)
[2016-10-08] MEDS: Insulin DETEMIR 100 UNIT/ML X5UNITS SQ SCH ×2 (10:04→21:32)
[2016-10-08] MEDS: Piperacillin/Tazobactam 3.375 GM in D5% in Water (Mini-Bag+) 100 ML IVPB SCH ×2 (10:04→23:50)
[2016-10-08] MEDS: Isosorbide MONOnitrate (24 HR) 30 MG TAB.ER.24H PO SCH (10:08)
[2016-10-08] MEDS: Furosemide 40 MG/4 ML VIAL IVP SCH (10:09)
[2016-10-08] MEDS: cloNIDine HCl 0.1 MG TABLET PO SCH (10:09)
[2016-10-08] MEDS: Insulin LISPRO 300 UNITS/3 ML VIAL SQ SCH ×4 (10:09→21:24)
[2016-10-08] MEDS: Metoprolol XL (24 HR) Succ 25 MG TAB.ER.24H PO SCH (10:10)
[2016-10-08] MEDS: Budesonide/Formoterol 160/4.5 MDI IH SCH (10:37)
--- NOTE | 2016-10-08 10:40 | Nephrology Consult Note ---
Date of Encounter: 10/07/16 Time of Encounter: 10:38 Assessment and Plan (1) ARF (acute renal failure) Status: Resolved The patient has acute kidney injury superimposed on stage III to stage IV chronic kidney disease. Her acute kidney injuries in the setting of gram- negative urinary tract infection, treated by gram-negative bacteremia and sepsis. Her blood pressures on the low side. I am going to reduce some of her antihypertensive medications. Blood gases suggest respiratory acidosis. I am going to discontinue the bicarbonate infusion and place her on normal saline IV. She currently is on empiric antibiotics. She is also going to require a workup of her anemia since her hemoglobin is 7.6. Qualifiers: Acute renal failure type: unspecified Qualified Code(s): N17.9 - Acute kidney failure, unspecified (2) Chronic kidney disease, stage III (moderate) Status: Chronic (3) Anemia Status: Acute Qualifiers: Anemia type: unspecified type Qualified Code(s): D64.9 - Anemia, unspecified (4) Hyperkalemia Status: Acute History of Present Illness - History of Present Illness This is a 71-year-old female [facility] for further evaluation of fever vomiting and malaise. Patient has been diagnosed with a gram-negative urinary tract infection and bacteremia. Patient on presentation had acute kidney injury superimposed on chronic kidney disease complicated by mild hyperkalemia. Patient has a history of stage III to stage IV chronic kidney disease with a baseline creatinine ranging from 1.5-2.4 in the setting of diabetes and proteinuria. On admission the patient's creatinine was up to 3.26. Today she is down to 3.06. A Mccarty catheter is in place. She has been started on antibiotics. She is currently receiving intravenous bicarbonate replacement. A CT scan showed no hydronephrosis. It did show some perinephric stranding of the fat. There was also a nodular infiltrate in the right base. Currently the patient says that she is tired. She does not have much of an appetite. She has some abdominal discomfort. She denies any chest pain or shortness of breath. She does exhibit myoclonic jerks as well as some hand tremors. The patient denies any difficulty emptying her bladder. She denies any urinary incontinence. Patient also denies any dysuria urinary frequency or gross hematuria. Past Med Surg Social Fam HX - Past Medical History Medical history: asthma, CHF, COPD, CVA, diabetes, hypertension, renal disease, other Psychiatric history: no psych history - Past Surgical History Surgical History: no surgical history - Social History Smoking Status: Never smoker Smokeless Tobacco Status: No Alcohol use: none Drug use: none - Family History Father Living Status: Hx Family Cancer: Yes Mother Living Status: Hx Family Cardiac Disorders: No Hx Family Respiratory Disorders: No Hx Family Cancer: Yes Hx Family GI Disorders: No Hx Family Endocrine Disorder: No Hx Family Neuromuscular Disorders: No Hx Family Neurologic Disorders: No Hx Family HEENT Disorders: No Hx Family Autoimmune Disorders: No Medications and Allergies Cholecalciferol (Vitamin D3) [Vitamin D3] 50,000 unit PO QWEEK 05/30/16 [History ] Gabapentin [Neurontin] 300 mg PO BID 05/30/16 [History] Hydralazine HCl 100 mg PO Q8H 05/30/16 [History] Insulin ASPART [NovoLOG] 1 - 5 unit SQ ACHS 05/30/16 [History] Isosorbide MONOnitrate (24 HR) [Imdur] 30 mg PO DAILY 05/30/16 [History] CloNIDine HCl [Clonidine HCl] 0.2 mg PO BID #60 tab 06/04/16 [Rx] Aspirin 81 mg PO DAILY 07/10/16 [History] Insulin DETEMIR [Levemir] 50 unit SQ QAM 07/10/16 [History] Insulin DETEMIR [Levemir] 55 unit SQ HS 07/10/16 [History] Acetaminophen [Tylenol] 650 mg PO Q6HR PRN #0 tablet 07/20/16 [Rx] Ipratropium/Albuterol Neb [Duoneb] 3 ml IH [id number] inhsol 07/20/16 [Rx] Tramadol HCl [Ultram] 50 mg PO QID PRN #10 tab 07/20/16 [Rx] Atorvastatin Calcium [Lipitor] 80 mg PO DAILY 07/31/16 [History] Budesonide/Formoterol 160/4.5 [Symbicort 160/4.5] 2 puff IH BID 07/31/16 [ History] ClonazePAM [Klonopin] 1 mg PO TID PRN 07/31/16 [History] Clopidogrel [Plavix] 75 mg PO DAILY 07/31/16 [History] Levothyroxine [Synthroid] 25 mcg PO DAILY 07/31/16 [History] Loperamide [Imodium] 2 mg PO Q4HR PRN 07/31/16 [History] Pantoprazole Sodium [Protonix] 40 mg PO DAILY 07/31/16 [History] Saline Nasal [place] [[place] Nasal [place]] 2 spray NS TID 07/31/16 [History] Tiotropium [Spiriva] 18 mcg IH DAILY 07/31/16 [History] Furosemide [Lasix] 40 mg PO BID #0 08/12/16 [Rx] Lisinopril [Zestril] 5 mg PO DAILY #0 tablet 08/12/16 [Rx] Metoprolol Succinate 25 mg PO DAILY #30 tab.er.24h 08/12/16 [Rx] Spironolactone [Aldactone] 12.5 mg PO DAILY tablet 08/12/16 [Rx] Citalopram [CeleXA] 20 mg PO DAILY 10/07/16 [History] Furosemide [Lasix] 20 mg PO QPM 10/07/16 [History] Loratadine [Claritin] 10 mg PO DAILY 10/07/16 [History] Multivitamin [One Daily Multivitamin] 1 tab PO DAILY 10/07/16 [History] Ertapenem [INVanz] 500 mg IVPB DAILY 7 Days 10/23/16 [Rx] Allergies No Known Allergies Allergy (Verified 07/24/16 16:19) Review of Systems Constitutional: as per HPI, anorexia, fever(s), weakness Eyes: bilateral: blurred vision (patient denies), diplopia (patient denies) Nose, mouth and throat: no dizziness, no headache(s) Cardiovascular: no chest pain, no palpitations Respiratory: no cough, no dyspnea Gastrointestinal: as per HPI, abdominal pain, nausea, vomiting Musculoskeletal: no muscle weakness, no numbness Integumentary: no hirsutism, no striae Neurological: tremor(s), weakness Psychiatric: no depression, no difficulty concentrating Endocrine: as per HPI Hematologic/Lymphatic: no easy bruising, no lymphadenopathy Exam - Vital Signs Vital signs: Initial Vital Signs Temp Pulse Resp BP Pulse Ox 101.5 F H 75 18 124/32 100 10/07/16 09:46 10/07/16 09:46 10/07/16 09:46 10/07/16 09:46 10/07/16 09:46 Vital Signs - Last 8 Hours Temp Pulse Resp BP Pulse Ox 10/08/16 07:57 100.4 F H 83 18 100/45 97 10/08/16 04:34 98.9 F 84 18 100/43 99 10/08/16 03:21 20 98 10/08/16 03:00 98 Intake and Output 10/07/16 10/08/16 10/08/16 23:59 07:59 15:59 Intake Total 120 / 120 100 / 100 1075 / 1075 Output Total 800 / 800 550 / 550 550 / 550 Balance -680 / -680 -450 / -450 525 / 525 Intake: IV Fluids 100 / 100 1075 / 1075 Sodium Bicarbonate 75 MEQ 1075 / 1075 In 0.45% Sodium Chloride 1000 Ml 1000 Ml 1,000 ML @ 75 mls/hr IVC .[id number] [facility] Rx#:[id number] Zosyn 3.375 GM In 100 / 100 Dextrose 5% (Minibag+) 100 ML 100 ML @ 25 mls/hr IVPB 1100,2300 [facility] Rx#: [id number] Oral 120 / 120 Output: Catheter 800 / 800 550 / 550 550 / 550 Other: Meal Dinner Percent of Meal Consumed 20% Weight 89.2 kg Blood Glucose* 108 111 Patient Weight 10/08/16 23:59 Weight 89.2 kg - General Appearance Exam: Patient is alert. She appears chronically ill. She is somewhat slow to answer questions. She exhibits mild clonus as well as some tremors of her hands. Neck is supple. Lungs somewhat diminished breath sounds anteriorly. No rales wheezing or rhonchi. Heart regular rate and rhythm. No murmur or S3-S4 gallops clicks or rubs. Abdomen shows normal bowel sounds. There are some tenderness to palpation. There is no guarding or rigidity. Lower extremities show mild peripheral edema. A Mccarty catheter is in place. Patient is on maintenance IV fluids containing bicarbonate replacement. Results - Lab Results 10/23/16 03:45 10/23/16 03:45 Most recent lab results ABG pH 7.32 pH Units (7.32-7.45) 10/07/16 15:04 ABG pCO2 57 mmHg (35-45) H 10/07/16 15:04 ABG pO2 108 mmHg (85-104) H 10/07/16 15:04 ABG HCO3 29.4 mEQ/L (21-27) H 10/07/16 15:04 ABG O2 Saturation 98 % (95-98) 10/07/16 15:04 Calcium 8.2 mg/dL (8.6-10.8) L 10/08/16 07:05 Phosphorus 5.7 mg/dL (2.3-4.7) H 10/07/16 10:09 Magnesium 2.4 mg/dL (1.6-2.6) 10/07/16 10:09 Consult Discharge Plan - Plan Instructions: Ertapenem (Injection) Additional Instructions: Follow up with your PCP in 3-5 days. Continue the Ertapenem daily through 10/30 Referrals: NO,PCP [Primary Care Provider] - (Patient follows up with F PCP) Prescriptions: Ertapenem [INVanz] 500 mg IVPB DAILY 7 Days
--- NOTE | 2016-10-08 10:57 | Internal Med Progress Note ---
<Jos Barreto - Last Filed: 10/08/16 11:40> Date of Encounter: 10/08/16 Time of Encounter: 10:53 - Assessment and plan (1) Acute metabolic encephalopathy Current Visit: Yes Status: Acute Assessment and plan: 2nd to sepsis from UTI from G- bacteremia in setting , hyperkalemia (resolving) , anemia, PRADEEP on CKD PCR + for enterobacter and E.coli as well. Patient presented confused, drowsy. Mental status has improved with administration of Zosyn, on BiPAP. We will continue monitoring (2) Sepsis Current Visit: Yes Status: Acute Assessment and plan: 2nd to gram - bacteremia from UTI. WBC 14.3, Temp: 101.5, Source UTI Previously had UTI 2nd to Proteus sensitive to zosyn. Continue zosyn: awaiting sensitivity of culture CBC in AM. Qualifiers: Sepsis type: sepsis due to unspecified organism Qualified Code(s): A41.9 - Sepsis, unspecified organism (3) UTI (urinary tract infection) Current Visit: Yes Status: Acute Assessment and plan: 2nd to G- wei. Awaiting culture sensitivity Continue zosyn. Qualifiers: Urinary tract infection type: site unspecified Hematuria presence: without hematuria Qualified Code(s): N39.0 - Urinary tract infection, site not specified (4) Acute on chronic renal failure Current Visit: Yes Status: Acute Assessment and plan: most likely 2nd to sepsis and UTI from G- Bacteremia Scr has improved from 3.26 to 3.02 Hyperkalemia: received kayexalate and bicarb now 5.1. bicarb was d/c and start NS @ 75cc/hr (patient has moderate diastolic dysfunction LVEF 55%) Nephrology on board appreciate input. hx of CKD III with scr baseline of 2-2.4 2nd to DMII in setting of protienuria. (5) Chronic congestive heart failure with left ventricular diastolic dysfunction Current Visit: Yes Status: Chronic Assessment and plan: LVEF 55% with moderate diastolic dysfunction. b/l Lower extremity edema continue lasix Strict I/Os continue clarke BMP morning. (6) Hx of coronary artery disease Current Visit: Yes Status: Acute Assessment and plan: hx of NSTEMI. Denies chest pain. Elevated troponin 0.07, 0.05, 0.17 is her baseline 2nd to PRADEEP on CKD, sepsis EKG sinus rhythm Mag WNL Continue statin, aspirin, torpol (7) Type 2 diabetes mellitus with diabetic chronic kidney disease Current Visit: Yes Status: Acute Assessment and plan: Blood sugars under control. Continue levemir 28 units at night and 25 units in morning. Continue sliding scale Continue diabetic diet. Qualifiers: Diabetes mellitus correction insulin use: with mica plate layer use Chronic kidney disease stage: stage 3 (moderate) Qualified Code(s): E11.22 - Type 2 diabetes mellitus with diabetic chronic kidney disease; N18.3 - Chronic kidney disease, stage 3 (moderate); Z79.4 - correction (current) use of insulin (8) COPD (chronic obstructive pulmonary disease) Current Visit: No Status: Acute Assessment and plan: hx of COPD. Denies sob, sputum production. On 3L O2 outpatient. SPO2 >90% on 2L. Continue duoneb treatments. Qualifiers: COPD type: unspecified COPD Qualified Code(s): J44.9 - Chronic obstructive pulmonary disease, unspecified (9) Anemia Current Visit: Yes Status: Chronic Assessment and plan: Anemia of chronic disease 2nd to Renal failure. Baseline hgb is 8-9. Hgb now is 7.6. Will repeat CBC. Denies hematochezia, melena, hemoptysis, hemetemesis BP 100/45 stable patient awake alert x3 Order b12, folate, ferritin, iron panel, stool guiac. Qualifiers: Anemia type: unspecified type Qualified Code(s): D64.9 - Anemia, unspecified (10) Sacral decubitus ulcer, stage II Current Visit: Yes Status: Chronic Assessment and plan: Chronic stage II 2nd to chronic bed rest and DMII Well dressed, clean, no drainage. Continue monitoring. (11) Hyperkalemia Current Visit: Yes Status: Acute Assessment and plan: Presented with K+ of 5.7. 2nd to PRADEEP on CKD 2nd to UTI. Treated with kayexalate and bicarb. Now 5.1 Start NS @ 75cc/hr Repeat BMP (12) DVT prophylaxis Current Visit: No Status: Acute Assessment and plan: EPCDs. with withhold medical prophylaxis due to anemia. - Subjective Interval history: Patient denies any difficulty in breathing. Denies sputum production. Alert oriented x3. Has clarke. Denies abdominal pain. Patient is on 3L O2 at [facility] and is currently on 2L now. - Constitutional Vitals: Temp Pulse Resp BP Pulse Ox 100.4 F H 83 18 100/45 97 10/08/16 07:57 10/08/16 07:57 10/08/16 07:57 10/08/16 07:57 10/08/16 07:57 General appearance: Present: A&O X 3, morbidly obese - Head Head exam: Present: atraumatic, normocephalic - Eye Eye exam: Present: PERRL, conjuntiva pink, sclera anicteric - Neck Neck exam general surgery: Present: supple, trachea midline. Absent: lymphadenopathy - Respiratory Respiratory exam: Present: decreased breath sounds, wheezes (R upper lobe ). Absent: rales, respiratory distress, rhonchi - Cardiovascular Cardiovascular exam: Present: RRR, +S1, +S2. Absent: diastolic murmur, gallop, rubs, systolic murmur - GI/Abdominal GI/Abdominal exam: Present: normal bowel sounds, soft, no peritoneal signs. Absent: distended, tenderness - Extremities Exam Extremities exam: Present: pedal edema (b/l pittting edema worse on right. RLE red compared to left. ), warm, radial pulses palpable and symetrical. Absent: calf tenderness, cyanotic - Back Exam Additional comments: Stage two decubitis ulcer on coccyx - Psychiatric Psychiatric exam: Present: depressed Internal Medicine: Result - Labs CBC & Chem 7: 10/07/16 10:09 10/08/16 07:05 Labs: BMP 10/07/16 10/08/16 19:47 07:05 Sodium 138 138 Potassium 5.8 H 5.1 H Chloride 101 101 Carbon Dioxide 25 25 BUN 99 H 94 H Creatinine 3.26 H 3.06 H Glucose 88 101 H Calcium 8.6 8.2 L Cardiac Enzymes 10/08/16 Range/Units 07:05 Troponin I 0.17 H* (0-0.03) ng/mL - ABG Interpretation ABG results: ABG ABG pH 7.32 pH Units (7.32-7.45) 10/07/16 15:04 ABG pCO2 57 mmHg (35-45) H 10/07/16 15:04 ABG pO2 108 mmHg (85-104) H 10/07/16 15:04 ABG O2 Saturation 98 % (95-98) 10/07/16 15:04 PT/INR, D-dimer PT 13.8 Seconds (9.4-12.1) H 10/07/16 10:09 - Impressions Impressions Abdomen/Pelvis CT 10/08/16 00:00 IMPRESSION: Nodular infiltrate within the right lung base. No hydronephrosis. Evaluation for pyelonephritis inconclusive due to lack of contrast. D/ / Josh Peña MD / Josh Peña MD Interpreting Provider: Josh Peña MD Consult Discharge Plan - Plan Referrals: NO,PCP [Primary Care Provider] - <Efrain Nichols H - Last Filed: 10/08/16 13:44> Date of Encounter: 10/08/16 - Constitutional Vitals: Temp Pulse Resp BP Pulse Ox 98.0 F 91 18 134/68 97 10/08/16 11:48 10/08/16 11:48 10/08/16 11:48 10/08/16 11:48 10/08/16 11:48 Internal Medicine: Result - Labs CBC & Chem 7: 10/08/16 11:12 10/08/16 07:05 Labs: Short CBC 10/08/16 Range/Units 11:12 WBC 9.8 (4.3-11.1) K/mcL Hgb 6.8 L (11.5-15.4) g/dL Hct 22.2 L (35.3-44.9) % Plt Count 302 (140-400) K/mcL Neutrophils # 7.5 (1.6-8.9) K/mcL BMP 10/07/16 10/08/16 19:47 07:05 Sodium 138 138 Potassium 5.8 H 5.1 H Chloride 101 101 Carbon Dioxide 25 25 BUN 99 H 94 H Creatinine 3.26 H 3.06 H Glucose 88 101 H Calcium 8.6 8.2 L Cardiac Enzymes 10/08/16 10/08/16 Range/Units 07:05 11:12 Troponin I 0.17 H* 0.94 H* (0-0.03) ng/mL - ABG Interpretation ABG results: ABG ABG pH 7.32 pH Units (7.32-7.45) 10/07/16 15:04 ABG pCO2 57 mmHg (35-45) H 10/07/16 15:04 ABG pO2 108 mmHg (85-104) H 10/07/16 15:04 ABG O2 Saturation 98 % (95-98) 10/07/16 15:04 PT/INR, D-dimer PT 13.8 Seconds (9.4-12.1) H 10/07/16 10:09 - Impressions Impressions Abdomen/Pelvis CT 10/08/16 00:00 IMPRESSION: Nodular infiltrate within the right lung base. No hydronephrosis. Evaluation for pyelonephritis inconclusive due to lack of contrast. D/ / Josh Peña MD / Josh Peña MD Interpreting Provider: Josh Peña MD - Attending Attestation metabolic encephalopathy 2nd to sepsis from UTI/possible acute right pyelonephritis(with G- bacteremia) Right lower extremity fracture acute on chronic (CKD3) renal failure I examined this patient and my medical decision-making was reviewed with the INSTITUTIONAL AIDE/PA/Advanced Practice Nurse/Resident Physician. I agree with the documented findings, disposition and treatment plan as described except to the extent set forth below.
[2016-10-08 11:33] LABS: Basophils % 0.2 %; Eosinophils % 0.2 %; Hematocrit 22.2 % (35.3-44.9); Hemoglobin 6.8 g/dL (11.5-15.4); Immature Granulocytes % 0.6 % (0-4); Immature Platelets 1.2 % (1.1-6.1); Lymphocytes # 1.5 K/mcL (0.6-4.6); Lymphocytes % 15.1 %; Mean Corpuscular HGB Conc 30.6 g/dL (31.6-35.5); Mean Corpuscular Hemoglobin 28.6 pg (28.0-33.3); Mean Corpuscular Volume 93.3 fL (83.0-100.0); Monocytes # 0.8 K/mcL (0.0-1.3); Monocytes % 7.7 %; Neutrophils # 7.5 K/mcL (1.6-8.9); Platelet Count 302 K/mcL (140-400); Red Blood Count 2.38 M/mcL (3.82-4.97); Red Cell Distribution Width 14.8 % (11.5-14.5); Segmented Neutrophils % 76.2 %
[2016-10-08] MEDS: 0.9 % Sodium Chloride 1,000 ML IVC SCH (11:52)
--- NOTE | 2016-10-08 13:29 | Cardiology Consult Note ---
Date of Encounter: 10/08/16 Time of Encounter: 13:28 Assessment and Plan (1) Elevated troponin Current Visit: No Status: Acute Elevated troponin in the setting of acute on chronic anemia, acute on chronic kidney disease, UTI/sepsis. She has chronic troponin elevation. She denies chest pain. TTE 06/03/16- EF 55%, moderate diastolic dysfunction, no significant valvular disease. No strong indication for invasive evaluation and she is not a candidate secondary to acute on chronic anemia and acute on chronic kidney disease. She is a DNRCCAI. Continue medical mgmnt. Continue asa, statin, and bb. (2) ARF (acute renal failure) Current Visit: Yes Status: Acute Creatinine 3.26, GFR 15. Baseline creatinine 1.7-2.2. Avoid nephrotoxins. Nephrology following. Qualifiers: Acute renal failure type: unspecified Qualified Code(s): N17.9 - Acute kidney failure, unspecified (3) Acute metabolic encephalopathy Current Visit: Yes Status: Acute Hospitalist following. (4) Anemia Current Visit: Yes Status: Acute Hgb 6.8 today, acute on chronic anemia. Consider transfusion. No active bleeding seen. Qualifiers: Anemia type: unspecified type Qualified Code(s): D64.9 - Anemia, unspecified (5) Sepsis Current Visit: Yes Status: Acute Urine and blood cultures positive for gram negative rods. WBC 14.8. T-max 101.5. Possible pnemonia on CXR and CT. Hospitalist following. Qualifiers: Sepsis type: Escherichia coli Qualified Code(s): A41.51 - Sepsis due to Escherichia coli [E. coli] Discussion w patient/family: The assessment and plan as outlined above was discussed with the patient and/or family members who expressed understanding and agreement. All questions were answered. Thank you for involving us in the care of your patient. Please call with any questions. History of Present Illness Consult date: 10/08/16 Requesting physician: Efrain Nichols Consult reason: Elevated troponin Chief complaint: AMS History of present illness: Ms. Dsouza is a 71 year old female who presented from [facility] with AMS. She was found to have UTI, bacteremia, PRADEEP on CKD, hyperkalemia, and acute on chronic anemia. Cardiology consulted for elevated troponin up to 0.94. Creatinine was 3.26, GFR 15, K 5.8, WBC 14.8 initially, Hgb 7.6 and now 6.8. Blood cultures and urine cultures were positive for gram negative rods. On my exam she is oriented to place. I re-oriented her to time and situation. She is confused. Past medical history significant for CVA, COPD, diabetes type II, hypertension, HLD, CKD stage III, and JOSEFINA. Past Med Surg Social Fam HX - Past Medical History Medical history: asthma, CHF, COPD, CVA, diabetes, hypertension, renal disease, other Psychiatric history: no psych history - Past Surgical History Surgical History: no surgical history - Social History Smoking Status: Never smoker Smokeless Tobacco Status: No Alcohol use: none Drug use: none - Family History Father Living Status: Hx Family Cancer: Yes Mother Living Status: Hx Family Cardiac Disorders: No Hx Family Respiratory Disorders: No Hx Family Cancer: Yes Hx Family GI Disorders: No Hx Family Endocrine Disorder: No Hx Family Neuromuscular Disorders: No Hx Family Neurologic Disorders: No Hx Family HEENT Disorders: No Hx Family Autoimmune Disorders: No Medications and Allergies Cholecalciferol (Vitamin D3) [Vitamin D3] 50,000 unit PO QWEEK 05/30/16 [History ] Gabapentin [Neurontin] 300 mg PO BID 05/30/16 [History] Hydralazine HCl 100 mg PO Q8H 05/30/16 [History] Insulin ASPART [NovoLOG] 1 - 5 unit SQ ACHS 05/30/16 [History] Isosorbide MONOnitrate (24 HR) [Imdur] 30 mg PO DAILY 05/30/16 [History] CloNIDine HCl [Clonidine HCl] 0.2 mg PO BID #60 tab 06/04/16 [Rx] Aspirin 81 mg PO DAILY 07/10/16 [History] Insulin DETEMIR [Levemir] 50 unit SQ QAM 07/10/16 [History] Insulin DETEMIR [Levemir] 55 unit SQ HS 07/10/16 [History] Acetaminophen [Tylenol] 650 mg PO Q6HR PRN #0 tablet 07/20/16 [Rx] Ipratropium/Albuterol Neb [Duoneb] 3 ml IH [id number] inhsol 07/20/16 [Rx] Tramadol HCl [Ultram] 50 mg PO QID PRN #10 tab 07/20/16 [Rx] Atorvastatin Calcium [Lipitor] 80 mg PO DAILY 07/31/16 [History] Budesonide/Formoterol 160/4.5 [Symbicort 160/4.5] 2 puff IH BID 07/31/16 [ History] ClonazePAM [Klonopin] 1 mg PO TID PRN 07/31/16 [History] Clopidogrel [Plavix] 75 mg PO DAILY 07/31/16 [History] Levothyroxine [Synthroid] 25 mcg PO DAILY 07/31/16 [History] Loperamide [Imodium] 2 mg PO Q4HR PRN 07/31/16 [History] Pantoprazole Sodium [Protonix] 40 mg PO DAILY 07/31/16 [History] Saline Nasal [place] [[place] Nasal [place]] 2 spray NS TID 07/31/16 [History] Tiotropium [Spiriva] 18 mcg IH DAILY 07/31/16 [History] Furosemide [Lasix] 40 mg PO BID #0 08/12/16 [Rx] Lisinopril [Zestril] 5 mg PO DAILY #0 tablet 08/12/16 [Rx] Metoprolol Succinate 25 mg PO DAILY #30 tab.er.24h 08/12/16 [Rx] Spironolactone [Aldactone] 12.5 mg PO DAILY tablet 08/12/16 [Rx] Citalopram [CeleXA] 20 mg PO DAILY 10/07/16 [History] Furosemide [Lasix] 20 mg PO QPM 10/07/16 [History] Loratadine [Claritin] 10 mg PO DAILY 10/07/16 [History] Multivitamin [One Daily Multivitamin] 1 tab PO DAILY 10/07/16 [History] Allergies No Known Allergies Allergy (Verified 07/24/16 16:19) All Systems Review: A 10-system review of systems was performed and is negative for pertinent findings except as documented above in the HPI. Physical Examination Vital Signs, Last 4 Hours Temp Pulse Resp BP Pulse Ox 10/08/16 11:48 98.0 F 91 18 134/68 97 10/08/16 10:30 97 General: No Apparent Distress, Other (Confused) HEENT: Atraumatic, Normocephaly, Mucus Membranes Moist, Other (Pupils dilated) Neck: No JVD, Normal carotid pulses Cardiac: Reg Rate and Rhythm, Normal S1 and S2, No Murmur Lungs: Normal Breath Sounds, No Wheeze, Rales, Rhonchi Neuro: No focal deficits noted, Other (Drowsy, repeats self) Abdomen: Soft, Non-Tender Skin: Other (brownish/purple discoloration BLE. ) Musculoskeletal: No Chest Wall Tenderness Extremities: No Clubbing, No Cyanosis, Normal Pulses, Other (2+ edema BLE. ) Results 10/08/16 11:12 10/08/16 07:05 Lab Results 10/07/16 10/08/16 10/08/16 19:47 07:05 07:05 WBC Hgb Hct Plt Count Sodium 138 138 Potassium 5.8 H 5.1 H Chloride 101 101 Carbon Dioxide 25 25 BUN 99 H 94 H Creatinine 3.26 H 3.06 H Glucose 88 101 H Calcium 8.6 8.2 L Troponin I 0.17 H* 10/08/16 10/08/16 11:12 11:12 WBC 9.8 Hgb 6.8 L Hct 22.2 L Plt Count 302 Sodium Potassium Chloride Carbon Dioxide BUN Creatinine Glucose Calcium Troponin I 0.94 H* Chest X-Ray 10/07/16 10:06 IMPRESSION: Increased interstitial opacities may represent atypical pneumonia or pulmonary edema. Stable mild cardiomegaly. D/ / Lencho Farrell MD / Lencho Farrell MD Interpreting Provider: Lencho Farrell MD Abdomen/Pelvis CT 10/08/16 00:00 IMPRESSION: Nodular infiltrate within the right lung base. No hydronephrosis. Evaluation for pyelonephritis inconclusive due to lack of contrast. D/ / Josh Peña MD / Josh Peña MD Interpreting Provider: Josh Peña MD - Imaging and Cardiology Echo: pending - EKG Interpretation EKG results cardiology: personally reviewed (SR with 1st degree block. No change from previous EKG.) Consult Discharge Plan - Plan Referrals: NO,PCP [Primary Care Provider] -
[2016-10-08] MEDS ORDERED: 0.9 % Sodium Chloride 250 ML ONE (14:53)
[2016-10-08] MEDS: Acetaminophen 325 MG TABLET PO PRN (15:16)
[2016-10-08] MEDS ORDERED: Furosemide 20 MG/2 ML VIAL IVP ONE (15:31)
[2016-10-08 15:37] LABS: % Iron Saturation 12 % (15-50); Iron 16 mcg/dL (50-170); Transferrin 99 mg/dL (180-382)
[2016-10-08 15:58] LABS: Ferritin 651 ng/ml (5-204)
--- NOTE | 2016-10-08 16:53 | Electrocardiograph Report ---
[address] [place] [address] Test Date: 2016-10-07 Pat Name: Violeta Dsouza Department: 104 Room: 2A31 Gender: F Offal Separator: : 1945 Requested By: Lilian Zaidi Order Number: [id number] Reading MD: Willis Johnson MD Measurements Intervals Naylor Rate: 73 P: -69 CT: 238 QRS: 0 QRSD: 117 T: 57 QT: 413 QTc: 439 Interpretive Statements SINUS RHYTHM WITH FIRST DEGREE AV BLOCK LOW QRS VOLTAGE IN EXTREMITY LEADS ANTEROSEPTAL MYOCARDIAL INFARCTION, OF INDETERMINATE AGE BASELINE ARTIFACT Electronically Signed On 10-08-2016 16:52:22 EST by Willis Johnson MD
[2016-10-08 21:23] LABS: Hemoglobin 7.5 g/dL (11.5-15.4); Mean Corpuscular HGB Conc 31.3 g/dL (31.6-35.5); Mean Corpuscular Hemoglobin 28.8 pg (28.0-33.3); Mean Corpuscular Volume 92.3 fL (83.0-100.0); Platelet Count 278 K/mcL (140-400); Red Cell Distribution Width 14.7 % (11.5-14.5)
[2016-10-08 22:02] LABS: Folate 16.2 ng/mL (7.0-31.4)
[2016-10-08] MEDS: Budesonide Neb 0.5 MG/2 ML IH SCH (22:46)
[2016-10-09] MEDS: Ipratropium/Albuterol Neb 3 ML IH SCH ×4 (04:25→21:45)
[2016-10-09] MEDS: 0.9 % Sodium Chloride 1,000 ML IVC SCH ×2 (05:16→20:54)
[2016-10-09] MEDS: Levothyroxine 25 MCG TABLET PO SCH (05:17)
[2016-10-09] MEDS: *HR* Heparin 5,000 UNIT/ML VIAL SQ SCH (05:17)
--- NOTE | 2016-10-09 07:50 | Nephrology Progress Note ---
Date of Encounter: 10/09/16 Time of Encounter: 07:48 - Assessment and Plan (1) ARF (acute renal failure) Current Visit: Yes Status: Acute The patient has acute kidney injury superimposed on stage III chronic kidney disease in the setting of Escherichia coli bacteremia and urinary tract infection and possible component of volume depletion. Her Lasix has been placed on hold. Her antihypertensive medications have been reduced. Currently vital signs are stable. She continues on IV antibiotics. Today's lab is pending. Qualifiers: Acute renal failure type: unspecified Qualified Code(s): N17.9 - Acute kidney failure, unspecified (2) Chronic kidney disease, stage III (moderate) Current Visit: Yes Status: Acute (3) Type 2 diabetes mellitus with diabetic chronic kidney disease Current Visit: Yes Status: Acute Qualifiers: Diabetes mellitus emergency communications dispatcher insulin use: with emergency communications dispatcher use Chronic kidney disease stage: stage 3 (moderate) Qualified Code(s): E11.22 - Type 2 diabetes mellitus with diabetic chronic kidney disease; N18.3 - Chronic kidney disease, stage 3 (moderate); Z79.4 - care home (current) use of insulin (4) Anemia Current Visit: Yes Status: Acute Qualifiers: Anemia type: unspecified type Qualified Code(s): D64.9 - Anemia, unspecified (5) Hyperkalemia Current Visit: Yes Status: Acute (6) Sepsis Current Visit: Yes Status: Acute Qualifiers: Sepsis type: Escherichia coli Qualified Code(s): A41.51 - Sepsis due to Escherichia coli [E. coli] (7) UTI (urinary tract infection) Current Visit: Yes Status: Acute Qualifiers: Urinary tract infection type: site unspecified Hematuria presence: without hematuria Qualified Code(s): N39.0 - Urinary tract infection, site not specified Subjective Interval history: Patient denies any new complaints. Laboratory studies from today are pending. Urine output was 1100 mL yesterday. Urine culture and blood cultures are growing Escherichia coli. Objective - Vital Signs Vital signs: Vital Signs Temp Pulse Resp BP Pulse Ox 10/09/16 05:18 98.2 F 84 22 144/71 98 10/09/16 04:25 23 105/64 100 10/08/16 23:50 98.2 F 80 16 105/64 99 10/08/16 22:45 15 99 10/08/16 18:41 98.9 F 92 18 110/67 98 10/08/16 18:28 99.2 F 97 20 93/62 97 10/08/16 16:06 18 96 10/08/16 15:15 99.3 F 88 20 97 10/08/16 15:01 99.7 F H 87 20 96/42 99 10/08/16 11:48 98.0 F 91 18 134/68 97 10/08/16 10:37 18 99 10/08/16 10:30 97 10/08/16 07:57 100.4 F H 83 18 100/45 97 Intake and Output 10/08/16 10/08/16 10/09/16 15:59 23:59 07:59 Intake Total 1275 / 1275 350 / 350 1000 / 1000 Output Total 550 / 550 850 / 850 Balance 725 / 725 350 / 350 150 / 150 Intake: IV Fluids 1275 / 1275 1000 / 1000 0.9 % Sodium Chloride 1, 1000 / 1000 000 ML @ 75 mls/hr IVC . [id number] BELLE Rx#: [id number] Sodium Bicarbonate 75 MEQ 1175 / 1175 In 0.45% Sodium Chloride 1000 Ml 1000 Ml 1,000 ML @ 75 mls/hr IVC .[id number] BELLE Rx#:[id number] Zosyn 3.375 GM In 100 / 100 Dextrose 5% (Minibag+) 100 ML 100 ML @ 25 mls/hr IVPB 1100,2300 BELLE Rx#: [id number] Oral 0 / 0 Blood Product 0 / 0 350 / 350 Rbcs Leuko Poor As-1 0 / 0 350 / 350 Unit [id number] Output: Urine 0 / 0 850 / 850 Catheter 550 / 550 Other: Blood Glucose* 130 121 - General Appearance Exam: Patient is resting comfortably. She awakens easily. She is in no acute distress. Lungs symmetric breath sounds otherwise clear. Heart regular rate and rhythm. Abdomen is soft. There is no tenderness. There is some mild lower extremity swelling. - Lab 10/08/16 21:13 10/08/16 07:05 Most recent lab results ABG pH 7.32 pH Units (7.32-7.45) 10/07/16 15:04 ABG pCO2 57 mmHg (35-45) H 10/07/16 15:04 ABG pO2 108 mmHg (85-104) H 10/07/16 15:04 ABG HCO3 29.4 mEQ/L (21-27) H 10/07/16 15:04 ABG O2 Saturation 98 % (95-98) 10/07/16 15:04 Calcium 8.2 mg/dL (8.6-10.8) L 10/08/16 07:05 Phosphorus 5.7 mg/dL (2.3-4.7) H 10/07/16 10:09 Magnesium 2.4 mg/dL (1.6-2.6) 10/07/16 10:09 Consult Discharge Plan - Plan Referrals: NO,PCP [Primary Care Provider] -
--- NOTE | 2016-10-09 08:32 | Cardiology Progress Note ---
Date of Encounter: 10/09/16 Time of Encounter: 08:30 Assessment and Plan (1) Elevated troponin Current Visit: No Status: Acute Elevated troponin in the setting of acute on chronic anemia, acute on chronic kidney disease, UTI/sepsis. She has chronic troponin elevation. She denies chest pain. TTE 06/03/16- EF 55%, moderate diastolic dysfunction, no significant valvular disease. No strong indication for invasive evaluation and she is not a candidate secondary to acute on chronic anemia and acute on chronic kidney disease. She is a DNRCCA-DNI. Continued medical management recommended. She continues to deny chest pain. Continue asa, statin, and bb. Plavix held for anemia. Limited TTE pending. (2) ARF (acute renal failure) Current Visit: Yes Status: Acute PRADEEP/CKD in the setting of UTI and vl depletion. Nephrology following. Creatinine improving. Qualifiers: Acute renal failure type: unspecified Qualified Code(s): N17.9 - Acute kidney failure, unspecified (3) Acute metabolic encephalopathy Current Visit: Yes Status: Acute Hospitalist following. Continues to be drowsy and confused on exam today. (4) Anemia Current Visit: Yes Status: Acute Hgb 7.5 today after 1 unit PRBC. Acute on chronic anemia. No active bleeding seen. Hospitalist following. Qualifiers: Anemia type: unspecified type Qualified Code(s): D64.9 - Anemia, unspecified (5) Sepsis Current Visit: Yes Status: Acute Urine culture positive for e-coli. Preliminary blood cultures positive for gram negative rods. WBC 14.8. T-max 101.5. Possible pnemonia on CXR and CT. Hospitalist following. Qualifiers: Sepsis type: Escherichia coli Qualified Code(s): A41.51 - Sepsis due to Escherichia coli [E. coli] Discussion w patient/family: The assessment and plan as outlined above was discussed with the patient and/or family members who expressed understanding and agreement. All questions were answered. Thank you for involving us in the care of your patient. Please call with any questions. Subjective Principal diagnosis: elevated troponin, sepsis, PRADEEP, Anemia Interval history: Ms. Dsouza is drowsy this morning. Oriented to self and place. Re-oriented to time. Drowsy on my exam. Falls asleep quickly after waking up. Denies chest pain or SOB. Objective Vital Signs, Last 4 Hours Temp Pulse Resp BP Pulse Ox 10/09/16 08:05 98.3 F 88 20 140/77 97 10/09/16 05:18 98.2 F 84 22 144/71 98 General: Other (Drowsy, confused) HEENT: Atraumatic, Normocephaly, Mucus Membranes Moist Neck: No JVD, Normal carotid pulses Cardiac: Reg Rate and Rhythm, Normal S1 and S2, No Murmur Lungs: Normal Breath Sounds, No Wheeze, Rales, Rhonchi, Other (Respirations easy , diminished bases) Neuro: Other (Drowsy, falls asleep quickly) Abdomen: Soft, Non-Tender Skin: Other (BLE with red/purple discoloration. 2/2 bilat pedal pulses) Musculoskeletal: No Chest Wall Tenderness Extremities: Other (Trace edema BLE. ) Results 10/08/16 21:13 10/08/16 07:05 Lab Results 10/08/16 10/08/16 10/08/16 11:12 11:12 21:13 WBC 9.8 10.2 Hgb 6.8 L 7.5 L Hct 22.2 L 24.0 L Plt Count 302 278 Troponin I 0.94 H* - EKG Interpretation EKG results cardiology: other (24 hour telemetry review shows SR with occasional PVC, one cris. There was a 8 beat run of atrial tachycardia. No bradycardia or pauses.) Consult Discharge Plan - Plan Referrals: NO,PCP [Primary Care Provider] -
[2016-10-09 08:53] LABS: Basophils % 0.2 %; Eosinophils # 0.1 K/mcL (0.0-0.6); Eosinophils % 1.5 %; Hematocrit 22.9 % (35.3-44.9); Hemoglobin 7.2 g/dL (11.5-15.4); Immature Granulocytes % 0.6 % (0-4); Lymphocytes # 1.1 K/mcL (0.6-4.6); Lymphocytes % 12.2 %; Mean Corpuscular HGB Conc 31.4 g/dL (31.6-35.5); Mean Corpuscular Hemoglobin 29.1 pg (28.0-33.3); Mean Corpuscular Volume 92.7 fL (83.0-100.0); Mean Platelet Volume 9.3 fL (9.4-12.4); Monocytes % 10.5 %; Neutrophils # 6.9 K/mcL (1.6-8.9); Platelet Count 281 K/mcL (140-400); Red Blood Count 2.47 M/mcL (3.82-4.97); Red Cell Distribution Width 14.9 % (11.5-14.5)
[2016-10-09 09:05] LABS: Albumin 2.1 g/dL (3.5-5.0); Albumin/Globulin Ratio 0.5 (1.1-2.2); Bilirubin,Total 0.4 mg/dL (0.2-1.2); Calcium 8.1 mg/dL (8.6-10.8); Globulin 4.3 g/dL (2.4-3.5); Potassium 4.2 mEq/L (3.5-4.5); Total Protein 6.4 g/dL (6.0-8.3)
[2016-10-09] MEDS: Metoprolol XL (24 HR) Succ 25 MG TAB.ER.24H PO SCH (10:08)
[2016-10-09] MEDS: cloNIDine HCl 0.1 MG TABLET PO SCH (10:08)
[2016-10-09] MEDS: Insulin LISPRO 300 UNITS/3 ML VIAL SQ SCH ×4 (10:08→22:01)
[2016-10-09] MEDS: Aspirin 81 MG TAB.CHEW PO SCH (10:08)
[2016-10-09] MEDS: Loratadine 10 MG TABLET PO SCH (10:08)
[2016-10-09] MEDS: Isosorbide MONOnitrate (24 HR) 30 MG TAB.ER.24H PO SCH (10:08)
[2016-10-09] MEDS: hydrALAZINE 25 MG TABLET PO SCH ×2 (10:09→20:53)
[2016-10-09] MEDS: Gabapentin 300 MG CAPSULE PO SCH (10:09)
[2016-10-09] MEDS: Multivit/Ca/Min/Fe/FA 1 TAB TABLET PO SCH (10:09)
[2016-10-09] MEDS: Piperacillin/Tazobactam 3.375 GM in D5% in Water (Mini-Bag+) 100 ML IVPB SCH ×2 (10:12→22:02)
[2016-10-09] MEDS: Insulin DETEMIR 100 UNIT/ML X5UNITS SQ SCH ×2 (10:13→22:01)
[2016-10-09] MEDS: Budesonide Neb 0.5 MG/2 ML IH SCH ×2 (10:14→21:45)
--- NOTE | 2016-10-09 11:36 | Gastroenterology Consult Note ---
<CuevasHank bui Kennedy - Last Filed: 10/09/16 11:32> Date of Encounter: 10/09/16 Time of Encounter: 10:50 - Assessment and plan (1) Anemia Current Visit: Yes Status: Acute Assessment and plan: Hgb 7.6 on admission and dropped to 6.8 yesterday. Hgb 7.5 this AM after 1 unit PRBC. Continue to monitor CBC and transfuse PRBC as needed. Plan for EGD and colonoscopy tomorrow. Clear liquid diet today, no red or purple. NPO at midnight. If unable tolerate NuLytely please use MiraLAX prep. If not clear by 6 AM, give 2 tap water enemas. Qualifiers: Anemia type: unspecified type Qualified Code(s): D64.9 - Anemia, unspecified (2) Sepsis Current Visit: Yes Status: Acute Assessment and plan: Likely secondary to UTI. Management per primary team. Qualifiers: Sepsis type: Escherichia coli Qualified Code(s): A41.51 - Sepsis due to Escherichia coli [E. coli] (3) Chronic kidney disease, stage III (moderate) Current Visit: Yes Status: Acute Assessment and plan: Acute on chronic renal failure. Nephrology following. (4) ARF (acute renal failure) Current Visit: Yes Status: Acute Assessment and plan: Acute on chronic renal failure. Nephrology following. Qualifiers: Acute renal failure type: unspecified Qualified Code(s): N17.9 - Acute kidney failure, unspecified (5) Elevated troponin Current Visit: No Status: Acute Assessment and plan: Management per Cardiology. - Time Spent With Patient Total time spent is greater than 50% in coordination of care (as documented) at patient's floor/unit and/or counseling patient: GI History of Present Illness - Data of Consult Patient: known to practice within the last 3 years Consult date: 10/09/16 Requesting Physician: Young Tyler MD - Consult Narrative Reason for consult: GI Bleed History of present illness: Ms. Dsouza is a 71 year old female with PMHx of asthma, CHF, COPD, CVA, DM, HTN , CKD III-IV who presented to the ED from [facility] with fever, vomiting, and general malaise. She was confused on presentation to the ED. Initial work up in the ED suggested sepsis of urinary origin. Urine culture positive for E.coli, and peripheral blood cultures positive with gram negative rods. WBC on admission 14.3 and today 10.2. Her mental status improved with administration of Zosyn. Her Hgb on admission was 7.6 and dropped to 6.8 yesterday, this AM Hgb 7.5. Baseline Hgb 8-9. She denies melena, hematochezia, hemoptysis, or hematemesis. Stool guiac ordered. Troponin elevated to 0.94, per Cardiology is likely due to multiple non-cardiac issues-gram negative sepsis, acute on chronic kidney disease, and anemia. No invasive procedures planned. Procedures: EGD 07/26/2016 Dr. Caceres showed normal stomach, monilial esophagitis Colonoscopy: 3.5 years ago, [place], [facility] per patient NSAIDs: ASA Anticoagulation: Plavix Past Med Surg Social Fam HX - Past Medical History Medical history: asthma, CHF, COPD, CVA, diabetes, hypertension, renal disease, other Psychiatric history: no psych history - Past Surgical History Surgical History: no surgical history - Social History Smoking Status: Never smoker Smokeless Tobacco Status: No Alcohol use: none Drug use: none - Family History Father Living Status: Hx Family Cancer: Yes Mother Living Status: Hx Family Cardiac Disorders: No Hx Family Respiratory Disorders: No Hx Family Cancer: Yes Hx Family GI Disorders: No Hx Family Endocrine Disorder: No Hx Family Neuromuscular Disorders: No Hx Family Neurologic Disorders: No Hx Family HEENT Disorders: No Hx Family Autoimmune Disorders: No - Gastrointestinal Gastrointestinal: Present: as per HPI - Constitutional Constitutional: as per HPI - EENT Eyes: as per HPI Ears: Present: as per HPI Nose, mouth and throat: Present: as per HPI - Cardiovascular Cardiovascular ROS: Present: as per HPI - Respiratory Respiratory IM: Present: as per HPI - Genitourinary Genitourinary: Absent: change in color, Urinary frequency - Neurological ROS Neurological GI: Present: as per HPI - Hematologic/Lymphatic Hematologic/Lymphatic pediatric: Present: as per HPI - Musculoskeletal Musculoskeletal ROS GI: Present: as per HPI - Integumentary Integumentary GI: Present: as per HPI - Psychiatric ROS Psychiatric GI: Present: as per HPI - Endocrine Endocrine IM: Present: as per HPI - Constitutional Vitals: Temp Pulse Resp BP Pulse Ox 98.3 F 88 20 140/77 97 10/09/16 08:05 10/09/16 08:05 10/09/16 08:05 10/09/16 08:05 10/09/16 10:10 General appearance: Present: cooperative, A&O X 3, no acute distress, answers questions appropriately - Head Head exam: Present: atraumatic, normocephalic - Eye Eye exam: Present: normal appearance, sclera anicteric - ENT ENT exam: Present: mucous membranes moist - Neck Neck exam general surgery: Present: normal inspection, trachea midline - Respiratory Respiratory exam: Present: decreased breath sounds, CTAB. Absent: rales, rhonchi, wheezes - Cardiovascular Cardiovascular exam: Present: RRR, +S1, +S2 - GI/Abdominal GI/Abdominal exam: Present: soft, no peritoneal signs. Absent: distended, firm , guarding, tenderness - Rectal Rectal exam: Present: deferred - Extremities Exam Extremities exam: Present: pedal edema, warm - Neurological Exam Neurological exam: Present: no focal deficits - Psychiatric Psychiatric exam: Present: normal affect, normal mood - Skin Skin exam: Present: dry, intact, normal color, warm Results - Labs CBC & Chem 7: 10/09/16 08:10 10/09/16 08:10 Labs: Last Result Calcium 8.1 mg/dL (8.6-10.8) L 10/09/16 08:10 Iron 16 mcg/dL (50-170) L 10/08/16 15:15 % Saturation 12 % (15-50) L 10/08/16 15:15 Transferrin 99 mg/dL (180-382) L 10/08/16 15:15 Ferritin 651 ng/ml (5-204) H 10/08/16 15:15 Troponin I 0.94 ng/mL (0-0.03) H* 10/08/16 11:12 Vitamin B12 760 pg/mL (213-816) 10/08/16 15:15 Folate 16.2 ng/mL (7.0-31.4) 10/08/16 15:15 Entire Visit Hgb 7.2 g/dL (11.5-15.4) L 10/09/16 08:10 Hct 22.9 % (35.3-44.9) L 10/09/16 08:10 PT 13.8 Seconds (9.4-12.1) H 10/07/16 10:09 Ferritin 651 ng/ml (5-204) H 10/08/16 15:15 Total Bilirubin 0.4 mg/dL (0.2-1.2) 10/09/16 08:10 AST 26 Units/L (5-34) 10/09/16 08:10 ALT 8 Units/L (0-55) 10/09/16 08:10 Lipase 23 Units/L (8-78) 10/07/16 10:09 Folate 16.2 ng/mL (7.0-31.4) 10/08/16 15:15 E. coli (PCR) DETECTED (Not Detect) A 10/07/16 10:21 - ABG ABG results: ABG ABG pH 7.32 pH Units (7.32-7.45) 10/07/16 15:04 ABG pCO2 57 mmHg (35-45) H 10/07/16 15:04 ABG pO2 108 mmHg (85-104) H 10/07/16 15:04 ABG O2 Saturation 98 % (95-98) 10/07/16 15:04 PT/INR, D-dimer PT 13.8 Seconds (9.4-12.1) H 10/07/16 10:09 Consult Discharge Plan - Plan Referrals: NO,PCP [Primary Care Provider] - (Patient follows up with F PCP) Prescriptions: Ertapenem [INVanz] 500 mg IVPB DAILY 11 Days <Jaylon Caceres - Last Filed: 10/09/16 17:18> Date of Encounter: 10/09/16 Time of Encounter: 14:00 - Time Spent With Patient Total time spent is greater than 50% in coordination of care (as documented) at patient's floor/unit and/or counseling patient: GI History of Present Illness - Data of Consult Requesting Physician: Young Tyler MD - Consult Narrative History of present illness: Ms. Dsouza is a 71 year old female - Constitutional Vitals: Temp Pulse Resp BP Pulse Ox 98.8 F 82 16 158/87 100 10/09/16 15:30 10/09/16 15:30 10/09/16 15:44 10/09/16 15:30 10/09/16 15:44 Results - Labs CBC & Chem 7: 10/09/16 08:10 10/09/16 08:10 Labs: Last Result Calcium 8.1 mg/dL (8.6-10.8) L 10/09/16 08:10 Iron 16 mcg/dL (50-170) L 10/08/16 15:15 % Saturation 12 % (15-50) L 10/08/16 15:15 Transferrin 99 mg/dL (180-382) L 10/08/16 15:15 Ferritin 651 ng/ml (5-204) H 10/08/16 15:15 Troponin I 0.94 ng/mL (0-0.03) H* 10/08/16 11:12 Vitamin B12 760 pg/mL (213-816) 10/08/16 15:15 Folate 16.2 ng/mL (7.0-31.4) 10/08/16 15:15 Entire Visit Hgb 7.2 g/dL (11.5-15.4) L 10/09/16 08:10 Hct 22.9 % (35.3-44.9) L 10/09/16 08:10 PT 13.8 Seconds (9.4-12.1) H 10/07/16 10:09 Ferritin 651 ng/ml (5-204) H 10/08/16 15:15 Total Bilirubin 0.4 mg/dL (0.2-1.2) 10/09/16 08:10 AST 26 Units/L (5-34) 10/09/16 08:10 ALT 8 Units/L (0-55) 10/09/16 08:10 Lipase 23 Units/L (8-78) 10/07/16 10:09 Folate 16.2 ng/mL (7.0-31.4) 10/08/16 15:15 E. coli (PCR) DETECTED (Not Detect) A 10/07/16 10:21 - ABG ABG results: ABG ABG pH 7.32 pH Units (7.32-7.45) 10/07/16 15:04 ABG pCO2 57 mmHg (35-45) H 10/07/16 15:04 ABG pO2 108 mmHg (85-104) H 10/07/16 15:04 ABG O2 Saturation 98 % (95-98) 10/07/16 15:04 PT/INR, D-dimer PT 13.8 Seconds (9.4-12.1) H 10/07/16 10:09 - Attending Attestation I examined this patient and my medical decision-making was reviewed with the ADVERTISING OPERATIONS COORDINATOR/PA/Advanced Practice Nurse/Resident Physician. I agree with the documented findings, disposition and treatment plan as described except to the extent set forth below.
--- NOTE | 2016-10-09 12:02 | ECHO - Doppler Report ---
Limited Echocardiogram Name: Violeta Dsouza Date of Study: 10/09/2016 Date: 1945 Ht: 67.0 in Medical Record#: [id number] Age: 71 Wt: 196.0 lb Gender: Female BSA: 2 Order #: [id number] Location: [facility] Room #: 2A31 Reading Physician: Cate Martinez DO Dividend Deposit Voucher Clerk: Esteban Thkaur RN Ordering Physician: Gurjit Blackwood DO,[facility],[place],TAMMI Primary Physician: None Indications: Elevated Troponin Impressions: LVEF 55%. Not all myocardial segments were well visualized. Overall, LV systolic function remains normal. Left Ventricular Wall Motion: Rest Echo Findings The apex, apical inferior, mid inferior, basal inferior, apical anterior, mid anterior and basal anterior chappell were not visualized. All other wall segments showed normal motion. Findings: Study Quality * Technically fair. Not all images were well obtained. ECG Findings * Consider NSR with first degree AVB. Rhythm was not well obtained during the study. Left Ventricle * LVEF 55%. * Normal LV chamber size, wall thickness and function. * Atypical septal motion. Right Ventricle * Dilated RV with normal function. History Hypertension Diabetes Hypercholesteremia Years 41 Packs 0.5 Family History of CAD History of CAD/PTCA Congestive Heart Failure 06/03/2016 a Previous Echo was performed. Measurements: BP: 140/ 77 2D Normal Values IVSd: 1.20 cm 0.6 - 1.0 cm LVIDd: 5.30 cm 3.7 - 5.6 cm LVPWd: 1.20 cm 0.6 - 1.1 cm LVIDs: 3.60 cm 1.5 - 3.6 cm %FS: 32.10 cm >25 % LA volume: Updated by Cate Martinez on 10/09/2016 11:56:13 AM electronically signed on 10/09/2016 11:57:07 AM with status of Final Wall Motion Sexton: 1=Normal, 2=Hypokinesis, 3=Akinesis, 4=Dyskinesis, 5=Aneurysmal, 6=Hyperkinetic, X=Not Visualized (Blank)=Missing
--- NOTE | 2016-10-09 16:23 | Internal Med Progress Note ---
Date of Encounter: 10/09/16 Time of Encounter: 16:19 - Assessment and plan (1) Acute metabolic encephalopathy Current Visit: Yes Status: Acute Assessment and plan: Likely secondary to urosepsis. Gram-negative bacteremia Patient is an appropriate antibiotic. Zosyn day 4 We will continue this antibiotics as directed. (2) UTI (urinary tract infection) Current Visit: Yes Status: Acute Assessment and plan: Possible source for sepsis/acute metabolic encephalopathy will continue present medications Qualifiers: Urinary tract infection type: site unspecified Hematuria presence: without hematuria Qualified Code(s): N39.0 - Urinary tract infection, site not specified (3) Type 2 diabetes mellitus with diabetic chronic kidney disease Current Visit: Yes Status: Acute Assessment and plan: Blood sugars under control. Continue levemir 28 units at night and 25 units in morning. Continue sliding scale Continue diabetic diet. Qualifiers: Diabetes mellitus intermediate insulin use: with intermediate use Chronic kidney disease stage: stage 3 (moderate) Qualified Code(s): E11.22 - Type 2 diabetes mellitus with diabetic chronic kidney disease; N18.3 - Chronic kidney disease, stage 3 (moderate); Z79.4 - longterm (current) use of insulin (4) COPD (chronic obstructive pulmonary disease) Current Visit: No Status: Acute Assessment and plan: hx of COPD. Denies sob, sputum production. On 3L O2 outpatient. SPO2 >90% on 2L. Continue duoneb treatments. Qualifiers: COPD type: unspecified COPD Qualified Code(s): J44.9 - Chronic obstructive pulmonary disease, unspecified (5) Sacral decubitus ulcer, stage II Current Visit: Yes Status: Chronic Assessment and plan: Chronic stage II 2nd to chronic bed rest and DMII Well dressed, clean, no drainage. Continue monitoring. - Subjective Interval history: Patient seen and examined. Chart reviewed. Patient feels much better as compared to yesterday. Prescription written for her for long-term antibiotics. Possible back to [facility] tomorrow - Constitutional Vitals: Temp Pulse Resp BP Pulse Ox 98.8 F 82 16 158/87 100 10/09/16 15:30 10/09/16 15:30 10/09/16 15:44 10/09/16 15:30 10/09/16 15:44 General appearance: Present: A&O X 3, morbidly obese - Head Head exam: Present: atraumatic, normocephalic - Eye Eye exam: Present: PERRL, conjuntiva pink, sclera anicteric Pupils: Present: PERRL - Neck Neck exam general surgery: Present: supple, trachea midline. Absent: lymphadenopathy - Respiratory Respiratory exam: Present: CTAB. Absent: accessory muscle use, rales, rhonchi, wheezes - Cardiovascular Cardiovascular exam: Present: RRR, +S1, +S2. Absent: diastolic murmur, gallop, rubs, systolic murmur - GI/Abdominal GI/Abdominal exam: Present: normal bowel sounds, soft, no peritoneal signs. Absent: distended, tenderness - Extremities Exam Extremities exam: Present: warm, radial pulses palpable and symetrical. Absent : calf tenderness, cyanotic, pedal edema - Neurological Exam Neurological exam: Present: CN II-XII intact, oriented X3, no focal deficits. Absent: pronater drift, facial droop, speech deficit - Skin Skin exam: Present: dry, intact Internal Medicine: Result - Labs CBC & Chem 7: 10/09/16 08:10 10/09/16 08:10 Labs: Short CBC 10/08/16 10/09/16 Range/Units 21:13 08:10 WBC 10.2 9.3 (4.3-11.1) K/mcL Hgb 7.5 L 7.2 L (11.5-15.4) g/dL Hct 24.0 L 22.9 L (35.3-44.9) % Plt Count 278 281 (140-400) K/mcL Neutrophils # 6.9 (1.6-8.9) K/mcL BMP 10/09/16 08:10 Sodium 141 Potassium 4.2 Chloride 102 Carbon Dioxide 26 BUN 85 H Creatinine 3.03 H Glucose 86 Calcium 8.1 L Liver Function 10/09/16 Range/Units 08:10 Total Bilirubin 0.4 (0.2-1.2) mg/dL AST 26 (5-34) Units/L ALT 8 (0-55) Units/L Alkaline Phosphatase 66 (38-126) Units/L Albumin 2.1 L (3.5-5.0) g/dL - ABG Interpretation ABG results: ABG ABG pH 7.32 pH Units (7.32-7.45) 03/05/17 15:04 ABG pCO2 57 mmHg (35-45) H 10/07/16 15:04 ABG pO2 108 mmHg (85-104) H 10/07/16 15:04 ABG O2 Saturation 98 % (95-98) 10/07/16 15:04 PT/INR, D-dimer PT 13.8 Seconds (9.4-12.1) H 10/07/16 10:09 Consult Discharge Plan - Plan Referrals: NO,PCP [Primary Care Provider] - (Patient follows up with F PCP) Prescriptions: Ertapenem [INVanz] 500 mg IVPB DAILY 11 Days
[2016-10-09 18:00] LABS: Albumin 2.1 g/dL (3.5-5.0); Albumin/Globulin Ratio 0.5 (1.1-2.2); Bilirubin,Total 0.4 mg/dL (0.2-1.2); Calcium 8.2 mg/dL (8.6-10.8); Globulin 4.5 g/dL (2.4-3.5); Potassium 4.6 mEq/L (3.5-4.5); Total Protein 6.6 g/dL (6.0-8.3)
[2016-10-10] MEDS: Ipratropium/Albuterol Neb 3 ML IH SCH ×4 (03:47→21:10)
[2016-10-10] MEDS: Levothyroxine 25 MCG TABLET PO SCH (06:17)
[2016-10-10 07:25] LABS: Basophils % 0.4 %; Eosinophils # 0.3 K/mcL (0.0-0.6); Eosinophils % 2.7 %; Hematocrit 23.7 % (35.3-44.9); Hemoglobin 7.4 g/dL (11.5-15.4); Immature Granulocytes % 0.6 % (0-4); Lymphocytes # 1.1 K/mcL (0.6-4.6); Lymphocytes % 10.7 %; Mean Corpuscular HGB Conc 31.2 g/dL (31.6-35.5); Mean Corpuscular Hemoglobin 29.5 pg (28.0-33.3); Mean Corpuscular Volume 94.4 fL (83.0-100.0); Mean Platelet Volume 9.2 fL (9.4-12.4); Monocytes # 0.9 K/mcL (0.0-1.3); Monocytes % 9.2 %; Neutrophils # 7.6 K/mcL (1.6-8.9); Platelet Count 275 K/mcL (140-400); Red Blood Count 2.51 M/mcL (3.82-4.97); Red Cell Distribution Width 14.8 % (11.5-14.5); Segmented Neutrophils % 76.4 %
--- NOTE | 2016-10-10 08:19 | Nephrology Progress Note ---
Date of Encounter: 10/10/16 Time of Encounter: 08:18 - Assessment and Plan (1) ARF (acute renal failure) Current Visit: Yes Status: Acute The patient has acute kidney injury superimposed on stage III chronic kidney disease in the setting of Escherichia coli bacteremia and urinary tract infection and possible component of volume depletion. The patient's renal function has been improving. Today's creatinine is pending. She continues on IV antibiotics for her Escherichia coli bacteremia and urinary tract infection. 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 coli] (7) UTI (urinary tract infection) Current Visit: Yes Status: Acute Qualifiers: Urinary tract infection type: site unspecified Hematuria presence: without hematuria Qualified Code(s): N39.0 - Urinary tract infection, site not specified Subjective Principal diagnosis: elevated troponin, sepsis, PRADEEP, Anemia Interval history: The patient reports she is feeling better. She appears to be more alert. Creatinine yesterday was down to 2.92. Today's creatinine is pending. Urine output is recorded as 750 mL. Objective - Vital Signs Vital signs: Vital Signs Temp Pulse Resp BP Pulse Ox 10/10/16 07:31 98.5 F 84 18 142/67 99 10/10/16 04:35 98.5 F 80 18 186/73 99 10/10/16 03:48 20 100 10/09/16 23:51 98.5 F 82 18 138/62 100 10/09/16 21:45 20 100 10/09/16 21:23 99.1 F 74 18 115/47 98 10/09/16 15:44 16 100 10/09/16 15:30 98.8 F 82 18 158/87 100 10/09/16 11:57 98.2 F 84 19 139/71 97 10/09/16 10:10 97 Intake and Output 10/09/16 10/10/16 10/10/16 23:59 07:59 15:59 Intake Total 1060 / 1060 Output Total 1025 / 1025 Balance 1060 / 1060 -1025 / -1025 Intake: IV Fluids 1000 / 1000 0.9 % Sodium Chloride 1, 1000 / 1000 000 ML @ 75 mls/hr IVC . [id number] BELLE Rx#: [id number] Oral 60 / 60 Output: Urine 650 / 650 Catheter 375 / 375 Other: Weight 117 kg Blood Glucose* 108 151 Patient Weight 10/10/16 23:59 Weight 117 kg - General Appearance Exam: Patient is more awake. She is in no acute distress. Lungs clear to auscultation anteriorly. Heart regular rate and rhythm. Abdomen is benign. There is some lower extremity swelling. - Lab 10/10/16 06:27 10/09/16 17:42 Most recent lab results ABG pH 7.32 pH Units (7.32-7.45) 10/07/16 15:04 ABG pCO2 57 mmHg (35-45) H 10/07/16 15:04 ABG pO2 108 mmHg (85-104) H 10/07/16 15:04 ABG HCO3 29.4 mEQ/L (21-27) H 10/07/16 15:04 ABG O2 Saturation 98 % (95-98) 10/07/16 15:04 Calcium 8.2 mg/dL (8.6-10.8) L 10/09/16 17:42 Phosphorus 5.7 mg/dL (2.3-4.7) H 10/07/16 10:09 Magnesium 2.4 mg/dL (1.6-2.6) 10/07/16 10:09 - VTE Documentation of Mechanical Device: Intermittent pneumatic compression device Consult Discharge Plan - Plan Referrals: NO,PCP [Primary Care Provider] - (Patient follows up with ECF PCP) Prescriptions: Ertapenem [INVanz] 500 mg IVPB DAILY 11 Days
[2016-10-10] MEDS: 0.9 % Sodium Chloride 1,000 ML IVC SCH ×2 (09:52→23:22)
[2016-10-10] MEDS: Insulin LISPRO 300 UNITS/3 ML VIAL SQ SCH ×4 (09:53→22:20)
[2016-10-10] MEDS: Isosorbide MONOnitrate (24 HR) 30 MG TAB.ER.24H PO SCH (09:54)
[2016-10-10] MEDS: Multivit/Ca/Min/Fe/FA 1 TAB TABLET PO SCH (09:54)
[2016-10-10] MEDS: Metoprolol XL (24 HR) Succ 25 MG TAB.ER.24H PO SCH (09:54)
[2016-10-10] MEDS: Aspirin 81 MG TAB.CHEW PO SCH (09:54)
[2016-10-10] MEDS: Gabapentin 300 MG CAPSULE PO SCH (09:54)
[2016-10-10] MEDS: cloNIDine HCl 0.1 MG TABLET PO SCH (09:54)
[2016-10-10] MEDS: hydrALAZINE 25 MG TABLET PO SCH ×2 (09:54→22:36)
[2016-10-10] MEDS: Loratadine 10 MG TABLET PO SCH (09:54)
[2016-10-10] MEDS: Insulin DETEMIR 100 UNIT/ML X5UNITS SQ SCH ×2 (09:56→22:20)
[2016-10-10] MEDS: Budesonide Neb 0.5 MG/2 ML IH SCH ×2 (10:32→21:10)
[2016-10-10] MEDS: Piperacillin/Tazobactam 3.375 GM in D5% in Water (Mini-Bag+) 100 ML IVPB SCH ×2 (12:49→23:15)
--- NOTE | 2016-10-10 16:52 | Internal Med Progress Note ---
Date of Encounter: 10/10/16 Time of Encounter: 16:50 - Assessment and plan (1) Acute metabolic encephalopathy Current Visit: Yes Status: Acute Assessment and plan: Likely secondary to urosepsis. Gram-negative bacteremia Patient is an appropriate antibiotic. Zosyn day 4 We will continue this antibiotics as directed. 10/10/2016 day 5 Zosyn doing well and more alert Ecoli (2) UTI (urinary tract infection) Current Visit: Yes Status: Acute Assessment and plan: Possible source for sepsis/acute metabolic encephalopathy will continue present medications Qualifiers: Urinary tract infection type: site unspecified Hematuria presence: without hematuria Qualified Code(s): N39.0 - Urinary tract infection, site not specified (3) Type 2 diabetes mellitus with diabetic chronic kidney disease Current Visit: Yes Status: Acute Assessment and plan: Blood sugars under control. Continue levemir 28 units at night and 25 units in morning. Continue sliding scale Continue diabetic diet. Qualifiers: Diabetes mellitus alf insulin use: with alf use Chronic kidney disease stage: stage 3 (moderate) Qualified Code(s): E11.22 - Type 2 diabetes mellitus with diabetic chronic kidney disease; N18.3 - Chronic kidney disease, stage 3 (moderate); Z79.4 - retirement (current) use of insulin (4) COPD (chronic obstructive pulmonary disease) Current Visit: No Status: Acute Assessment and plan: hx of COPD. Denies sob, sputum production. On 3L O2 outpatient. SPO2 >90% on 2L. Continue duoneb treatments. Qualifiers: COPD type: unspecified COPD Qualified Code(s): J44.9 - Chronic obstructive pulmonary disease, unspecified (5) Sacral decubitus ulcer, stage II Current Visit: Yes Status: Chronic Assessment and plan: Chronic stage II 2nd to chronic bed rest and DMII Well dressed, clean, no drainage. Continue monitoring. - Subjective Interval history: Patient seen and examined. Chart reviewed. Patient feels much better as compared to yesterday. Prescription written for her for long-term antibiotics. Possible back to [facility] tomorrow 10/10/2016 getting better able to sit up in bed need help from Pt/OT - Constitutional Vitals: Temp Pulse Resp BP Pulse Ox 98.2 F 67 18 123/64 100 10/10/16 16:10 10/10/16 16:10 10/10/16 16:10 10/10/16 16:10 10/10/16 16:10 General appearance: Present: A&O X 3, morbidly obese - Head Head exam: Present: atraumatic, normocephalic - Eye Eye exam: Present: PERRL, conjuntiva pink, sclera anicteric Pupils: Present: PERRL - Neck Neck exam general surgery: Present: supple, trachea midline. Absent: lymphadenopathy - Respiratory Respiratory exam: Present: CTAB. Absent: accessory muscle use, rales, rhonchi, wheezes - Cardiovascular Cardiovascular exam: Present: RRR, +S1, +S2. Absent: diastolic murmur, gallop, rubs, systolic murmur - GI/Abdominal GI/Abdominal exam: Present: normal bowel sounds, soft, no peritoneal signs. Absent: distended, tenderness - Extremities Exam Extremities exam: Present: warm, radial pulses palpable and symetrical. Absent : calf tenderness, cyanotic, pedal edema - Neurological Exam Neurological exam: Present: CN II-XII intact, oriented X3, no focal deficits. Absent: pronater drift, facial droop, speech deficit - Skin Skin exam: Present: dry, intact Internal Medicine: Result - Labs CBC & Chem 7: 10/10/16 06:27 10/09/16 17:42 Labs: Short CBC 10/10/16 Range/Units 06:27 WBC 10.0 (4.3-11.1) K/mcL Hgb 7.4 L (11.5-15.4) g/dL Hct 23.7 L (35.3-44.9) % Plt Count 275 (140-400) K/mcL Neutrophils # 7.6 (1.6-8.9) K/mcL BMP 10/09/16 17:42 Sodium 140 Potassium 4.6 H Chloride 103 Carbon Dioxide 25 BUN 81 H Creatinine 2.92 H Glucose 140 H Calcium 8.2 L Liver Function 10/09/16 Range/Units 17:42 Total Bilirubin 0.4 (0.2-1.2) mg/dL AST 25 (5-34) Units/L ALT 9 (0-55) Units/L Alkaline Phosphatase 70 (38-126) Units/L Albumin 2.1 L (3.5-5.0) g/dL - ABG Interpretation ABG results: ABG ABG pH 7.32 pH Units (7.32-7.45) 10/07/16 15:04 ABG pCO2 57 mmHg (35-45) H 10/07/16 15:04 ABG pO2 108 mmHg (85-104) H 10/07/16 15:04 ABG O2 Saturation 98 % (95-98) 10/07/16 15:04 PT/INR, D-dimer PT 13.8 Seconds (9.4-12.1) H 10/07/16 10:09 - VTE Documentation of Mechanical Device: Intermittent pneumatic compression device Consult Discharge Plan - Plan Referrals: NO,PCP [Primary Care Provider] - (Patient follows up with ECF PCP) Prescriptions: Ertapenem [INVanz] 500 mg IVPB DAILY 11 Days
[2016-10-10] MEDS ORDERED: SODIUM CHLORIDE/NAHCO3/KCL/PEG 4,000 ML SOLN.RECON PO ONE (17:00)
[2016-10-10 17:55] LABS: Albumin/Globulin Ratio 0.4 (1.1-2.2); Bilirubin,Total 0.4 mg/dL (0.2-1.2); Calcium 8.1 mg/dL (8.6-10.8); Globulin 4.5 g/dL (2.4-3.5); Potassium 4.1 mEq/L (3.5-4.5); Total Protein 6.5 g/dL (6.0-8.3)
[2016-10-11] MEDS: Ondansetron 4 MG/2 ML VIAL IVP PRN (01:49)
[2016-10-11] MEDS: Ipratropium/Albuterol Neb 3 ML IH SCH ×4 (03:40→23:17)
[2016-10-11 04:22] LABS: Basophils # 0.1 K/mcL (0.0-0.2); Basophils % 0.6 %; Eosinophils # 0.4 K/mcL (0.0-0.6); Eosinophils % 3.8 %; Hematocrit 24.2 % (35.3-44.9); Hemoglobin 7.3 g/dL (11.5-15.4); Immature Granulocytes % 0.7 % (0-4); Lymphocytes # 1.2 K/mcL (0.6-4.6); Mean Corpuscular HGB Conc 30.2 g/dL (31.6-35.5); Mean Corpuscular Hemoglobin 28.5 pg (28.0-33.3); Mean Corpuscular Volume 94.5 fL (83.0-100.0); Mean Platelet Volume 8.8 fL (9.4-12.4); Monocytes # 0.8 K/mcL (0.0-1.3); Monocytes % 7.6 %; Neutrophils # 8.4 K/mcL (1.6-8.9); Platelet Count 278 K/mcL (140-400); Red Blood Count 2.56 M/mcL (3.82-4.97); Red Cell Distribution Width 14.9 % (11.5-14.5); Segmented Neutrophils % 76.3 %
[2016-10-11] MEDS: Levothyroxine 25 MCG TABLET PO SCH ×2 (06:45→08:40)
--- NOTE | 2016-10-11 08:28 | Nephrology Progress Note ---
Date of Encounter: 10/11/16 Time of Encounter: 08:27 - Assessment and Plan (1) ARF (acute renal failure) Current Visit: Yes Status: Acute The patient has acute kidney injury superimposed on stage III chronic kidney disease in the setting of Escherichia coli bacteremia and urinary tract infection and possible component of volume depletion. The patient's renal function has been improving. I think we can go ahead and discontinue her maintenance IV fluids. She remains on antibiotics. Qualifiers: Acute renal failure type: unspecified Qualified Code(s): N17.9 - Acute kidney failure, unspecified (2) Chronic kidney disease, stage III (moderate) Current Visit: Yes Status: Acute (3) Type 2 diabetes mellitus with diabetic chronic kidney disease Current Visit: Yes Status: Acute Qualifiers: Diabetes mellitus detention insulin use: with adjunct faculty for medical terminology use Chronic kidney disease stage: stage 3 (moderate) Qualified Code(s): E11.22 - Type 2 diabetes mellitus with diabetic chronic kidney disease; N18.3 - Chronic kidney disease, stage 3 (moderate); Z79.4 - prison (current) use of insulin (4) Anemia Current Visit: Yes Status: Acute Qualifiers: Anemia type: unspecified type Qualified Code(s): D64.9 - Anemia, unspecified (5) Hyperkalemia Current Visit: Yes Status: Acute (6) Sepsis Current Visit: Yes Status: Acute Qualifiers: Sepsis type: Escherichia coli Qualified Code(s): A41.51 - Sepsis due to Escherichia coli [E. coli] (7) UTI (urinary tract infection) Current Visit: Yes Status: Acute Qualifiers: Urinary tract infection type: site unspecified Hematuria presence: without hematuria Qualified Code(s): N39.0 - Urinary tract infection, site not specified Subjective Principal diagnosis: elevated troponin, sepsis, PRADEEP, Anemia Interval history: Patient denies any new complaints. Clinically she appears about the same as yesterday. Creatinine is of yesterday showed continued improvement in her renal function. Today's creatinine is pending. Objective - Vital Signs Vital signs: Vital Signs Temp Pulse Resp BP Pulse Ox 10/11/16 07:31 97.4 F L 77 18 147/79 100 10/11/16 05:02 98.4 F 76 18 151/64 97 10/11/16 03:42 14 100 10/11/16 01:49 98.7 F 74 16 145/84 98 10/10/16 21:19 18 100 10/10/16 21:17 98.1 F 67 18 130/74 99 10/10/16 16:10 98.2 F 67 18 123/64 100 10/10/16 16:09 18 100 10/10/16 11:35 98.9 F 81 18 116/62 100 10/10/16 10:32 18 98 10/10/16 10:07 2 L Intake and Output 10/10/16 10/11/16 10/11/16 23:59 07:59 15:59 Intake Total 1100 / 1100 100 / 100 Balance 1100 / 1100 100 / 100 Intake: IV Fluids 1100 / 1100 100 / 100 0.9 % Sodium Chloride 1, 1000 / 1000 000 ML @ 75 mls/hr IVC . [id number] BELLE Rx#: [id number] Zosyn 3.375 GM In 100 / 100 100 / 100 Dextrose 5% (Minibag+) 100 ML 100 ML @ 25 mls/hr IVPB 1100,2300 [facility] Rx#: [id number] Other: Stool Size Copious Copious Stool Consistency liquid liquid Stool Color Brown Brown # Bowel Movement Diapers 2 1 Weight 120.1 kg Blood Glucose* 194 103 Patient Weight 10/11/16 23:59 Weight 120.1 kg - General Appearance Exam: Patient is alert. She is in no acute distress. Lungsbreath sounds otherwise clear. Heart regular rhythm. Abdomen is benign. There is some lower extremity swelling. Mccarty catheter is in place. She continues on maintenance IV. - Lab 10/11/16 04:00 10/10/16 17:37 Most recent lab results ABG pH 7.32 pH Units (7.32-7.45) 10/07/16 15:04 ABG pCO2 57 mmHg (35-45) H 10/07/16 15:04 ABG pO2 108 mmHg (85-104) H 10/07/16 15:04 ABG HCO3 29.4 mEQ/L (21-27) H 10/07/16 15:04 ABG O2 Saturation 98 % (95-98) 10/07/16 15:04 Calcium 8.1 mg/dL (8.6-10.8) L 10/10/16 17:37 Phosphorus 5.7 mg/dL (2.3-4.7) H 10/07/16 10:09 Magnesium 2.4 mg/dL (1.6-2.6) 10/07/16 10:09 - VTE Documentation of Mechanical Device: Intermittent pneumatic compression device Consult Discharge Plan - Plan Referrals: NO,PCP [Primary Care Provider] - (Patient follows up with ECF PCP) Prescriptions: Ertapenem [INVanz] 500 mg IVPB DAILY 11 Days
[2016-10-11] MEDS: Insulin DETEMIR 100 UNIT/ML X5UNITS SQ SCH ×2 (08:35→20:37)
[2016-10-11] MEDS: Loratadine 10 MG TABLET PO SCH (08:36)
[2016-10-11] MEDS: cloNIDine HCl 0.1 MG TABLET PO SCH (08:36)
[2016-10-11] MEDS: hydrALAZINE 25 MG TABLET PO SCH ×2 (08:37→20:40)
[2016-10-11] MEDS: Isosorbide MONOnitrate (24 HR) 30 MG TAB.ER.24H PO SCH (08:37)
[2016-10-11] MEDS: Metoprolol XL (24 HR) Succ 25 MG TAB.ER.24H PO SCH (08:37)
[2016-10-11] MEDS: Multivit/Ca/Min/Fe/FA 1 TAB TABLET PO SCH (08:38)
[2016-10-11] MEDS: Aspirin 81 MG TAB.CHEW PO SCH (08:38)
[2016-10-11] MEDS: Gabapentin 300 MG CAPSULE PO SCH (08:38)
[2016-10-11] MEDS: Insulin LISPRO 300 UNITS/3 ML VIAL SQ SCH ×4 (08:38→20:40)
[2016-10-11] MEDS: Budesonide Neb 0.5 MG/2 ML IH SCH ×2 (10:53→23:17)
[2016-10-11] MEDS: Piperacillin/Tazobactam 3.375 GM in D5% in Water (Mini-Bag+) 100 ML IVPB SCH (11:30)
[2016-10-11] MEDS ORDERED: *HR* Propofol 200 MG/20 ML VIAL IVP ONE (12:57)
[2016-10-11] MEDS ORDERED: Lidocaine -MPF 2% 5 ML VIAL INFILT ONE (12:57)
--- NOTE | 2016-10-11 13:14 | Anesthesia Evaluation PreOp ---
Date of Encounter: 10/11/16 Time of Encounter: 13:00 - Past History Planned Operation: Double Endo Cardiac History: HTN, Hyperlipidemia, Other (CAD, acute over chronic anemia) Pulmonary History: JOSEFINA Dx [employer] History: Denies Any Significant HX Other Medical History: Renal (CKD Stage III), Diabetes Type II, Other (Morbid Obesity) Anesthesia History: No Prior Anesthetic Complications Alcohol Use: none Drug use: none Medications and Allergies Cholecalciferol (Vitamin D3) [Vitamin D3] 50,000 unit PO QWEEK 05/30/16 [History ] Gabapentin [Neurontin] 300 mg PO BID 05/30/16 [History] Hydralazine HCl 100 mg PO Q8H 05/30/16 [History] Insulin ASPART [NovoLOG] 1 - 5 unit SQ ACHS 05/30/16 [History] Isosorbide MONOnitrate (24 HR) [Imdur] 30 mg PO DAILY 05/30/16 [History] CloNIDine HCl [Clonidine HCl] 0.2 mg PO BID #60 tab 06/04/16 [Rx] Aspirin 81 mg PO DAILY 07/10/16 [History] Insulin DETEMIR [Levemir] 50 unit SQ QAM 07/10/16 [History] Insulin DETEMIR [Levemir] 55 unit SQ HS 07/10/16 [History] Acetaminophen [Tylenol] 650 mg PO Q6HR PRN #0 tablet 07/20/16 [Rx] Ipratropium/Albuterol Neb [Duoneb] 3 ml IH [id number] inhsol 07/20/16 [Rx] Tramadol HCl [Ultram] 50 mg PO QID PRN #10 tab 07/20/16 [Rx] Atorvastatin Calcium [Lipitor] 80 mg PO DAILY 07/31/16 [History] Budesonide/Formoterol 160/4.5 [Symbicort 160/4.5] 2 puff IH BID 07/31/16 [ History] ClonazePAM [Klonopin] 1 mg PO TID PRN 07/31/16 [History] Clopidogrel [Plavix] 75 mg PO DAILY 07/31/16 [History] Levothyroxine [Synthroid] 25 mcg PO DAILY 07/31/16 [History] Loperamide [Imodium] 2 mg PO Q4HR PRN 07/31/16 [History] Pantoprazole Sodium [Protonix] 40 mg PO DAILY 07/31/16 [History] Saline Nasal [place] [[place] Nasal [place]] 2 spray NS TID 07/31/16 [History] Tiotropium [Spiriva] 18 mcg IH DAILY 07/31/16 [History] Furosemide [Lasix] 40 mg PO BID #0 08/12/16 [Rx] Lisinopril [Zestril] 5 mg PO DAILY #0 tablet 08/12/16 [Rx] Metoprolol Succinate 25 mg PO DAILY #30 tab.er.24h 08/12/16 [Rx] Spironolactone [Aldactone] 12.5 mg PO DAILY tablet 08/12/16 [Rx] Citalopram [CeleXA] 20 mg PO DAILY 10/07/16 [History] Furosemide [Lasix] 20 mg PO QPM 10/07/16 [History] Loratadine [Claritin] 10 mg PO DAILY 10/07/16 [History] Multivitamin [One Daily Multivitamin] 1 tab PO DAILY 10/07/16 [History] Ertapenem [INVanz] 500 mg IVPB DAILY 11 Days 10/09/16 [Rx] Allergies No Known Allergies Allergy (Verified 07/24/16 16:19) - Meds/Allergy Pre-op Review Medications Reviewed: Yes Allergies Reviewed: Yes Beta Blockers on Current Med List: No Anesthesia Results - Labs 10/11/16 04:00 10/10/16 17:37 - Imaging Additional studies: SAVANNA EF 55% Anesthesia Exam Vital Signs/O2 Sat/Glucose, Most Current Temp Pulse Resp BP Pulse Ox 10/11/16 13:13 98.2 F 70 16 98/57 100 10/11/16 11:46 98.2 F 71 16 135/75 100 10/11/16 10:53 18 100 Height: 5'7 Weight: 264 lbs NPO (# of Hours): MN Pain Scale: 0 - HEENT Pupil (Motor): Pupils equal, EOMI Mallampati: III Denture Type: Upper: Complete Oral Opening: Greater than 3 - [employer] LOC: Oriented [employer] Motor: Normal RUE, Normal LUE, Normal RLE, Normal LLE, Normal Face [employer] Sensory: Normal: RUE, LUE, RLE, LLE, Face - Cardiac Rhythm: Regular Murmur: None JVD: No Carotid Bruit: No - Pulmonary Breath Sounds: bilateral Clear Respiratory Effort: Symmetrical Anesthesia Assess/Plan ASA Score: 4 (CAD Anemia CKD JOSEFINA MO) Modified Millie Scale for Level of Consciousness: Cooperative, oriented, and tranquil Anesthetic Plan: MAC Monitoring Plan: Standard Monitors Recovery Plan: Other (Discussed MAC, agrees to proceed)
[2016-10-11] MEDS ORDERED: Ringers Solution, Lactated 1,000 ML IVC SCH (13:15)
[2016-10-11] MEDS ORDERED: 0.9 % Sodium Chloride 500 ML IVC SCH (13:30)
--- NOTE | 2016-10-11 13:55 | Anesthesia Evaluation Post Op ---
Date of Encounter: 10/11/16 Time of Encounter: 13:54 - Vital Signs Vital Signs: vss - Lungs Lungs: Clear Ascult./Percussion - Airway Airway: Non-obstructed - Cardiovascular Baseline Rhythm - Mental Status Mental Status: Asleep with brisk response to light stimulation - Pain Pain Scale used: Allen (Faces) - Nausea Vomiting Nausea Vomiting: Not Present - Hydration Hydration: Mccarty catheter - Discharge PostOp Status: Transfer Patient to floor
--- NOTE | 2016-10-11 18:24 | Internal Med Progress Note ---
Date of Encounter: 10/11/16 Time of Encounter: 18:17 - Assessment and plan (1) Acute metabolic encephalopathy Current Visit: Yes Status: Acute Assessment and plan: Likely secondary to urosepsis. Gram-negative bacteremia Patient is an appropriate antibiotic. Zosyn day 4 We will continue this antibiotics as directed. 10/10/2016 day 5 Zosyn doing well and more alert Ecoli sensetive to zosyn 10/11/2016 getting better no new complants. (2) UTI (urinary tract infection) Current Visit: Yes Status: Acute Assessment and plan: Possible source for sepsis/acute metabolic encephalopathy will continue present medications Qualifiers: Urinary tract infection type: site unspecified Hematuria presence: without hematuria Qualified Code(s): N39.0 - Urinary tract infection, site not specified (3) Type 2 diabetes mellitus with diabetic chronic kidney disease Current Visit: Yes Status: Acute Assessment and plan: Blood sugars under control. Continue levemir 28 units at night and 25 units in morning. Continue sliding scale Continue diabetic diet. Qualifiers: Diabetes mellitus usp insulin use: with usp use Chronic kidney disease stage: stage 3 (moderate) Qualified Code(s): E11.22 - Type 2 diabetes mellitus with diabetic chronic kidney disease; N18.3 - Chronic kidney disease, stage 3 (moderate); Z79.4 - care home (current) use of insulin (4) COPD (chronic obstructive pulmonary disease) Current Visit: No Status: Acute Assessment and plan: hx of COPD. Denies sob, sputum production. On 3L O2 outpatient. SPO2 >90% on 2L. Continue duoneb treatments. Qualifiers: COPD type: unspecified COPD Qualified Code(s): J44.9 - Chronic obstructive pulmonary disease, unspecified (5) Sacral decubitus ulcer, stage II Current Visit: Yes Status: Chronic Assessment and plan: Chronic stage II 2nd to chronic bed rest and DMII Well dressed, clean, no drainage. Continue monitoring. - Subjective Interval history: Patient seen and examined. Chart reviewed. Patient feels much better as compared to yesterday. Prescription written for her for long-term antibiotics. Possible back to [facility] tomorrow 10/10/2016 getting better able to sit up in bed need help from Pt/OT 10/11/2016 Underwent EGD and colonoscopy Presence of stool in colon will repeat colonoscopy in AM - Constitutional Vitals: Temp Pulse Resp BP Pulse Ox 98.6 F 68 17 114/50 99 10/11/16 16:00 10/11/16 16:00 10/11/16 16:00 10/11/16 16:00 10/11/16 16:00 General appearance: Present: A&O X 3, morbidly obese - Head Head exam: Present: atraumatic, normocephalic - Eye Eye exam: Present: PERRL, conjuntiva pink, sclera anicteric Pupils: Present: PERRL - Neck Neck exam general surgery: Present: supple, trachea midline. Absent: lymphadenopathy - Respiratory Respiratory exam: Present: CTAB. Absent: accessory muscle use, rales, rhonchi, wheezes - Cardiovascular Cardiovascular exam: Present: RRR, +S1, +S2. Absent: diastolic murmur, gallop, rubs, systolic murmur - GI/Abdominal GI/Abdominal exam: Present: normal bowel sounds, soft, no peritoneal signs. Absent: distended, tenderness - Extremities Exam Extremities exam: Present: warm, radial pulses palpable and symetrical. Absent : calf tenderness, cyanotic, pedal edema - Neurological Exam Neurological exam: Present: CN II-XII intact, oriented X3, no focal deficits. Absent: pronater drift, facial droop, speech deficit - Skin Skin exam: Present: dry, intact Internal Medicine: Result - Labs CBC & Chem 7: 10/11/16 04:00 10/10/16 17:37 Labs: Short CBC 10/11/16 Range/Units 04:00 WBC 11.0 (4.3-11.1) K/mcL Hgb 7.3 L (11.5-15.4) g/dL Hct 24.2 L (35.3-44.9) % Plt Count 278 (140-400) K/mcL Neutrophils # 8.4 (1.6-8.9) K/mcL - ABG Interpretation ABG results: ABG ABG pH 7.32 pH Units (7.32-7.45) 10/07/16 15:04 ABG pCO2 57 mmHg (35-45) H 10/07/16 15:04 ABG pO2 108 mmHg (85-104) H 10/07/16 15:04 ABG O2 Saturation 98 % (95-98) 10/07/16 15:04 PT/INR, D-dimer PT 13.8 Seconds (9.4-12.1) H 10/07/16 10:09 - VTE Documentation of Mechanical Device: Intermittent pneumatic compression device Consult Discharge Plan - Plan Referrals: NO,PCP [Primary Care Provider] - (Patient follows up with ECF PCP) Prescriptions: Ertapenem [INVanz] 500 mg IVPB DAILY 11 Days
[2016-10-11] MEDS ORDERED: Polyethylene Glycol 3350 255 GM POWDER PO ONE (18:27)
[2016-10-12] MEDS: Piperacillin/Tazobactam 3.375 GM in D5% in Water (Mini-Bag+) 100 ML IVPB SCH ×2 (00:09→21:05)
[2016-10-12 03:30] LABS: Basophils # 0.1 K/mcL (0.0-0.2); Basophils % 0.5 %; Eosinophils # 0.5 K/mcL (0.0-0.6); Eosinophils % 4.8 %; Hematocrit 24.4 % (35.3-44.9); Hemoglobin 7.3 g/dL (11.5-15.4); Immature Granulocytes % 0.4 % (0-4); Lymphocytes # 1.2 K/mcL (0.6-4.6); Mean Corpuscular HGB Conc 29.9 g/dL (31.6-35.5); Mean Corpuscular Hemoglobin 28.9 pg (28.0-33.3); Mean Corpuscular Volume 96.4 fL (83.0-100.0); Mean Platelet Volume 8.5 fL (9.4-12.4); Monocytes # 0.8 K/mcL (0.0-1.3); Neutrophils # 7.2 K/mcL (1.6-8.9); Platelet Count 258 K/mcL (140-400); Red Blood Count 2.53 M/mcL (3.82-4.97); Red Cell Distribution Width 14.8 % (11.5-14.5); Segmented Neutrophils % 74.3 %
[2016-10-12] MEDS: Ipratropium/Albuterol Neb 3 ML IH SCH ×4 (04:45→22:45)
[2016-10-12] MEDS: Levothyroxine 25 MCG TABLET PO SCH (05:33)
--- NOTE | 2016-10-12 06:29 | Event Note ---
Date of Encounter: 10/12/16 Time of Encounter: 06:26 I have been notified about blood cultures positive for ESBL positive Escherichia coli. I reviewed the urine and blood cultures - ratio E has been positive Escherichia coli which is sensitive to Zosyn and meropenem. Patient is already on Zosyn and is afebrile. Continue Zosyn. Day team to review
[2016-10-12] MEDS: Insulin LISPRO 300 UNITS/3 ML VIAL SQ SCH ×4 (08:51→21:17)
[2016-10-12] MEDS ORDERED: *HR* Propofol 200 MG/20 ML VIAL IVP ONE (09:09)
[2016-10-12] MEDS ORDERED: Lidocaine -MPF 2% 5 ML VIAL INFILT ONE (09:09)
--- NOTE | 2016-10-12 09:38 | Nephrology Progress Note ---
Date of Encounter: 10/12/16 Time of Encounter: 09:30 - Assessment and Plan (1) ARF (acute renal failure) Current Visit: Yes Status: Acute PRADEEP superimposed on stage III CKD in the setting of E coli bacteremia and urinary tract infection and possible component of volume depletion. The patient 's renal function has been improving though no current renal fct today., no urine output documented for yesterday, 300 cc in Mccarty bag today. Qualifiers: Acute renal failure type: unspecified Qualified Code(s): N17.9 - Acute kidney failure, unspecified Subjective Principal diagnosis: elevated troponin, sepsis, PRADEEP, Anemia Interval history: States feeling better, no new complaints. Objective - Vital Signs Vital signs: Vital Signs Temp Pulse Resp BP Pulse Ox 10/12/16 07:59 97.9 F 76 18 160/86 100 10/12/16 04:46 16 98 10/12/16 03:48 98.4 F 71 20 175/62 96 10/12/16 03:27 100 10/11/16 23:56 98.3 F 69 20 167/63 100 10/11/16 23:17 18 100 10/11/16 19:19 98 F 73 18 132/61 97 10/11/16 16:00 98.6 F 68 17 114/50 99 10/11/16 15:35 16 100 10/11/16 15:09 98.4 F 69 16 132/66 99 10/11/16 14:46 98.0 F 68 18 131/67 100 10/11/16 14:28 98.2 F 67 16 152/62 98 10/11/16 14:10 98.0 F 68 17 149/65 98 10/11/16 13:13 98.2 F 70 16 98/57 100 10/11/16 11:46 98.2 F 71 16 135/75 100 10/11/16 10:53 18 100 Intake and Output 10/11/16 10/12/16 10/12/16 23:59 07:59 15:59 Intake Total 120 / 120 0 / 0 Output Total 300 / 300 150 / 150 Balance -180 / -180 -150 / -150 Intake: Oral 120 / 120 0 / 0 Output: Catheter 300 / 300 150 / 150 Other: Stool Size Moderate Moderate Stool Consistency liquid liquid Stool Color Brown Brown Weight 123.7 kg Blood Glucose* 208 162 Patient Weight 10/12/16 23:59 Weight 123.7 kg - General Appearance General appearance: Present: well-developed, well-nourished, appears started age , obese EENT: Present: mucous membranes moist Neck: Present: no JVD Respiratory: Present: clear Cardiology: Present: regular rate, regular rhythm Additional Comments: generalized dependent edema thighs and buttocks, 1+ knees down Gastrointestinal: Present: normoactive bowel sounds, obese Integumentary: Present: warm and dry Neurologic: Present: alert and oriented x3 Psychiatric: Present: mood/affect appropriate, cooperative - Lab 10/12/16 03:25 10/11/16 03:25 Most recent lab results ABG pH 7.32 pH Units (7.32-7.45) 10/07/16 15:04 ABG pCO2 57 mmHg (35-45) H 10/07/16 15:04 ABG pO2 108 mmHg (85-104) H 10/07/16 15:04 ABG HCO3 29.4 mEQ/L (21-27) H 10/07/16 15:04 ABG O2 Saturation 98 % (95-98) 10/07/16 15:04 Calcium 8.1 mg/dL (8.6-10.8) L 10/11/16 03:25 Phosphorus 5.7 mg/dL (2.3-4.7) H 10/07/16 10:09 Magnesium 2.4 mg/dL (1.6-2.6) 10/07/16 10:09 - VTE Documentation of Mechanical Device: Intermittent pneumatic compression device Consult Discharge Plan - Plan Referrals: NO,PCP [Primary Care Provider] - (Patient follows up with [facility] PCP) Prescriptions: Ertapenem [INVanz] 500 mg IVPB DAILY 11 Days
[2016-10-12] MEDS: Multivit/Ca/Min/Fe/FA 1 TAB TABLET PO SCH (09:49)
[2016-10-12] MEDS: hydrALAZINE 25 MG TABLET PO SCH ×2 (09:49→21:04)
[2016-10-12] MEDS: Loratadine 10 MG TABLET PO SCH (09:49)
[2016-10-12] MEDS: Aspirin 81 MG TAB.CHEW PO SCH (09:50)
[2016-10-12] MEDS: cloNIDine HCl 0.1 MG TABLET PO SCH (09:50)
[2016-10-12] MEDS: Metoprolol XL (24 HR) Succ 25 MG TAB.ER.24H PO SCH (09:50)
[2016-10-12] MEDS: Isosorbide MONOnitrate (24 HR) 30 MG TAB.ER.24H PO SCH (09:50)
[2016-10-12] MEDS: Gabapentin 300 MG CAPSULE PO SCH (09:50)
[2016-10-12 10:30] LABS: Albumin 2.2 g/dL (3.5-5.0); Albumin/Globulin Ratio 0.5 (1.1-2.2); Bilirubin,Total 0.4 mg/dL (0.2-1.2); Calcium 8.4 mg/dL (8.6-10.8); Globulin 4.6 g/dL (2.4-3.5); Potassium 4.3 mEq/L (3.5-4.5); Total Protein 6.8 g/dL (6.0-8.3)
[2016-10-12 10:31] LABS: Potassium 4.4 mEq/L (3.5-4.5)
[2016-10-12 10:32] LABS: Albumin 2.1 g/dL (3.5-5.0); Albumin/Globulin Ratio 0.5 (1.1-2.2); Bilirubin,Total 0.4 mg/dL (0.2-1.2); Calcium 8.1 mg/dL (8.6-10.8); Globulin 4.4 g/dL (2.4-3.5); Total Protein 6.5 g/dL (6.0-8.3)
[2016-10-12] MEDS: Budesonide Neb 0.5 MG/2 ML IH SCH ×2 (10:50→22:45)
--- NOTE | 2016-10-12 10:58 | Anesthesia Evaluation Post Op ---
Date of Encounter: 10/12/16 Time of Encounter: 12:20 - Vital Signs Vital Signs: vss - Lungs Lungs: Clear Ascult./Percussion - Airway Airway: Non-obstructed - Cardiovascular Baseline Rhythm - Mental Status Mental Status: Asleep with brisk response to light stimulation - Pain Pain Scale used: Allen (Faces) - Nausea Vomiting Nausea Vomiting: Not Present - Hydration Hydration: Mccarty catheter - Discharge PostOp Status: Transfer Patient to floor
[2016-10-12] MEDS ORDERED: 0.9 % Sodium Chloride 1,000 ML IVC SCH (12:00)
--- NOTE | 2016-10-12 17:44 | Internal Med Progress Note ---
Date of Encounter: 10/12/16 Time of Encounter: 17:41 - Assessment and plan (1) Acute metabolic encephalopathy Current Visit: Yes Status: Acute Assessment and plan: Likely secondary to urosepsis. Gram-negative bacteremia Patient is an appropriate antibiotic. Zosyn day 4 We will continue this antibiotics as directed. 10/10/2016 day 5 Zosyn doing well and more alert Ecoli sensetive to zosyn 10/11/2016 getting better no new complants. 10/11/2016 day 7 Zosyn urine culture positive for ESBL strain sensitive to Zosyn will continue same antibiotics. (2) UTI (urinary tract infection) Current Visit: Yes Status: Acute Assessment and plan: Possible source for sepsis/acute metabolic encephalopathy will continue present medications Qualifiers: Urinary tract infection type: site unspecified Hematuria presence: without hematuria Qualified Code(s): N39.0 - Urinary tract infection, site not specified (3) Type 2 diabetes mellitus with diabetic chronic kidney disease Current Visit: Yes Status: Acute Assessment and plan: Blood sugars under control. Continue levemir 28 units at night and 25 units in morning. Continue sliding scale Continue diabetic diet. Qualifiers: Diabetes mellitus terminal gauger supervisor insulin use: with terminal gauger supervisor use Chronic kidney disease stage: stage 3 (moderate) Qualified Code(s): E11.22 - Type 2 diabetes mellitus with diabetic chronic kidney disease; N18.3 - Chronic kidney disease, stage 3 (moderate); Z79.4 - terminal carman (current) use of insulin (4) COPD (chronic obstructive pulmonary disease) Current Visit: No Status: Acute Assessment and plan: hx of COPD. Denies sob, sputum production. On 3L O2 outpatient. SPO2 >90% on 2L. Continue duoneb treatments. Qualifiers: COPD type: unspecified COPD Qualified Code(s): J44.9 - Chronic obstructive pulmonary disease, unspecified (5) Sacral decubitus ulcer, stage II Current Visit: Yes Status: Chronic Assessment and plan: Chronic stage II 2nd to chronic bed rest and DMII Well dressed, clean, no drainage. Continue monitoring. - Subjective Interval history: Patient seen and examined. Chart reviewed. Patient feels much better as compared to yesterday. Prescription written for her for long-term antibiotics. Possible back to [facility] tomorrow 10/10/2016 getting better able to sit up in bed need help from Pt/OT 10/11/2016 Underwent EGD and colonoscopy Presence of stool in colon will repeat colonoscopy in AM 10/12/2016 seen and examined. patient underwent colonoscopy this AM no new developments other willard urine culture is positive for ESBL. patient is on Zosyn will continue same treatment. - Constitutional Vitals: Temp Pulse Resp BP Pulse Ox 97.5 F L 72 18 165/64 97 10/12/16 15:29 10/12/16 15:29 10/12/16 15:49 10/12/16 15:29 10/12/16 15:49 General appearance: Present: A&O X 3, morbidly obese - Head Head exam: Present: atraumatic, normocephalic - Eye Eye exam: Present: PERRL, conjuntiva pink, sclera anicteric Pupils: Present: PERRL - Neck Neck exam general surgery: Present: supple, trachea midline. Absent: lymphadenopathy - Respiratory Respiratory exam: Present: CTAB. Absent: accessory muscle use, rales, rhonchi, wheezes - Cardiovascular Cardiovascular exam: Present: RRR, +S1, +S2. Absent: diastolic murmur, gallop, rubs, systolic murmur - GI/Abdominal GI/Abdominal exam: Present: normal bowel sounds, soft, no peritoneal signs. Absent: distended, tenderness - Extremities Exam Extremities exam: Present: warm, radial pulses palpable and symetrical. Absent : calf tenderness, cyanotic, pedal edema - Neurological Exam Neurological exam: Present: CN II-XII intact, oriented X3, no focal deficits. Absent: pronater drift, facial droop, speech deficit - Skin Skin exam: Present: dry, intact Internal Medicine: Result - Labs CBC & Chem 7: 10/12/16 03:25 10/12/16 10:05 Labs: Short CBC 10/12/16 Range/Units 03:25 WBC 9.7 (4.3-11.1) K/mcL Hgb 7.3 L (11.5-15.4) g/dL Hct 24.4 L (35.3-44.9) % Plt Count 258 (140-400) K/mcL Neutrophils # 7.2 (1.6-8.9) K/mcL BMP 10/11/16 10/12/16 10/12/16 03:25 03:25 10:05 Sodium TNP 139 139 Potassium TNP 4.4 4.3 Chloride TNP 105 105 Carbon Dioxide TNP 24 25 BUN TNP 61 H 58 H Creatinine TNP 2.26 H 2.19 H Glucose TNP 169 H 144 H Calcium TNP 8.1 L 8.4 L Liver Function 10/11/16 10/12/16 10/12/16 Range/Units 03:25 03:25 10:05 Total Bilirubin TNP 0.4 0.4 AST TNP 16 17 ALT TNP 9 9 Alkaline Phosphatase TNP 66 70 Albumin TNP 2.1 L 2.2 L - ABG Interpretation ABG results: ABG ABG pH 7.32 pH Units (7.32-7.45) 10/07/16 15:04 ABG pCO2 57 mmHg (35-45) H 10/07/16 15:04 ABG pO2 108 mmHg (85-104) H 10/07/16 15:04 ABG O2 Saturation 98 % (95-98) 10/07/16 15:04 PT/INR, D-dimer PT 13.8 Seconds (9.4-12.1) H 10/07/16 10:09 - VTE Documentation of Mechanical Device: Intermittent pneumatic compression device Consult Discharge Plan - Plan Referrals: NO,PCP [Primary Care Provider] - (Patient follows up with ECF PCP) Prescriptions: Ertapenem [INVanz] 500 mg IVPB DAILY 11 Days
[2016-10-12] MEDS: Insulin DETEMIR 100 UNIT/ML X5UNITS SQ SCH (21:34)
[2016-10-12] MEDS ORDERED: Insulin DETEMIR 100 UNIT/ML X5UNITS SQ ONE (21:34)
[2016-10-13] MEDS: Piperacillin/Tazobactam 3.375 GM in D5% in Water (Mini-Bag+) 100 ML IVPB SCH ×3 (04:14→20:31)
[2016-10-13] MEDS: Ipratropium/Albuterol Neb 3 ML IH SCH ×4 (04:50→22:52)
[2016-10-13] MEDS: Levothyroxine 25 MCG TABLET PO SCH (06:26)
[2016-10-13] MEDS: cloNIDine HCl 0.1 MG TABLET PO SCH (07:50)
[2016-10-13] MEDS: Gabapentin 300 MG CAPSULE PO SCH (07:50)
[2016-10-13] MEDS: Aspirin 81 MG TAB.CHEW PO SCH (07:50)
[2016-10-13] MEDS: Metoprolol XL (24 HR) Succ 25 MG TAB.ER.24H PO SCH (07:50)
[2016-10-13] MEDS: Multivit/Ca/Min/Fe/FA 1 TAB TABLET PO SCH (07:50)
[2016-10-13] MEDS: hydrALAZINE 25 MG TABLET PO SCH ×2 (07:50→20:32)
[2016-10-13] MEDS: Loratadine 10 MG TABLET PO SCH (07:50)
[2016-10-13] MEDS: Isosorbide MONOnitrate (24 HR) 30 MG TAB.ER.24H PO SCH (07:50)
[2016-10-13] MEDS: Insulin DETEMIR 100 UNIT/ML X5UNITS SQ SCH ×2 (07:51→20:32)
[2016-10-13] MEDS: Insulin LISPRO 300 UNITS/3 ML VIAL SQ SCH ×4 (07:51→20:53)
[2016-10-13] MEDS: Budesonide Neb 0.5 MG/2 ML IH SCH ×2 (10:50→22:52)
--- NOTE | 2016-10-13 11:06 | Nephrology Progress Note ---
Date of Encounter: 10/13/16 Time of Encounter: 10:50 - Assessment and Plan (1) ARF (acute renal failure) Current Visit: Yes Status: Acute PRADEEP superimposed on stage III CKD in the setting of E coli bacteremia and urinary tract infection and possible component of volume depletion. The patient 's renal function has been improving slowly though no current renal fct today, Urine output 750cc. S/P colonoscopy-negative findings. Continue to monitor. Qualifiers: Acute renal failure type: unspecified Qualified Code(s): N17.9 - Acute kidney failure, unspecified Subjective Principal diagnosis: elevated troponin, sepsis, PRADEEP, Anemia Interval history: States feeling better, no new complaints. Objective - Vital Signs Vital signs: Vital Signs Temp Pulse Resp BP Pulse Ox 10/13/16 10:51 18 100 10/13/16 07:04 98.1 F 80 20 174/52 96 10/13/16 04:51 17 99 10/13/16 04:32 97.9 F 72 18 169/79 99 10/12/16 23:36 97.9 F 75 17 119/53 100 10/12/16 22:45 17 100 10/12/16 20:55 98.1 F 75 16 150/79 98 10/12/16 15:49 18 97 10/12/16 15:29 97.5 F L 72 16 165/64 99 10/12/16 13:25 98.1 F 72 16 151/79 99 10/12/16 13:10 98.1 F 72 16 169/79 95 10/12/16 12:55 97.9 F 75 14 143/80 99 Intake and Output 10/12/16 10/13/16 10/13/16 23:59 07:59 15:59 Intake Total 120 / 120 100 / 100 237 / 237 Output Total 750 / 750 0 / 0 Balance 120 / 120 -650 / -650 237 / 237 Intake: IV Fluids 100 / 100 Zosyn 3.375 GM In 100 / 100 Dextrose 5% (Minibag+) 100 ML 100 ML @ 25 mls/hr IVPB Q8H [facility] Rx#: [id number] Oral 120 / 120 237 / 237 Output: Urine 0 / 0 Catheter 750 / 750 Other: Meal Dinner Breakfast Percent of Meal Consumed 80% 50% Stool Size Moderate Stool Consistency liquid soft Stool Color Brown # Bowel Movements 1 Weight 124.2 kg Blood Glucose* 188 176 Patient Weight 10/13/16 23:59 Weight 124.2 kg - General Appearance General appearance: Present: well-developed, well-nourished, appears started age , obese EENT: Present: mucous membranes moist Neck: Present: no JVD Respiratory: Present: clear Cardiology: Present: regular rate, regular rhythm Additional Comments: dependent edema in buttock and thighs. 1+ LE Gastrointestinal: Present: normoactive bowel sounds, no tenderness, obese Integumentary: Present: warm and dry Neurologic: Present: alert and oriented x3 Psychiatric: Present: mood/affect appropriate, cooperative - Lab 10/12/16 03:25 10/12/16 10:05 Most recent lab results ABG pH 7.32 pH Units (7.32-7.45) 10/07/16 15:04 ABG pCO2 57 mmHg (35-45) H 10/07/16 15:04 ABG pO2 108 mmHg (85-104) H 10/07/16 15:04 ABG HCO3 29.4 mEQ/L (21-27) H 10/07/16 15:04 ABG O2 Saturation 98 % (95-98) 10/07/16 15:04 Calcium 8.4 mg/dL (8.6-10.8) L 10/12/16 10:05 Phosphorus 5.7 mg/dL (2.3-4.7) H 10/07/16 10:09 Magnesium 2.4 mg/dL (1.6-2.6) 10/07/16 10:09 - VTE Documentation of Mechanical Device: Intermittent pneumatic compression device Consult Discharge Plan - Plan Referrals: NO,PCP [Primary Care Provider] - (Patient follows up with ECF PCP) Prescriptions: Ertapenem [INVanz] 500 mg IVPB DAILY 11 Days
[2016-10-13] MEDS: Ondansetron 4 MG/2 ML VIAL IVP PRN (13:10)
[2016-10-13] MEDS ORDERED: *HR* Promethazine 25 MG/ML VIAL IM ONE (14:34)
[2016-10-13] MEDS ORDERED: *HR* Promethazine 25 MG/ML VIAL IVP ONE ×3 (14:45→17:02)
[2016-10-13 16:33] LABS: Basophils % 0.2 %; Eosinophils # 0.2 K/mcL (0.0-0.6); Eosinophils % 1.9 %; Hematocrit 24.8 % (35.3-44.9); Hemoglobin 7.5 g/dL (11.5-15.4); Immature Granulocytes % 0.7 % (0-4); Immature Platelets 1.1 % (1.1-6.1); Lymphocytes # 1.1 K/mcL (0.6-4.6); Lymphocytes % 9.1 %; Mean Corpuscular HGB Conc 30.2 g/dL (31.6-35.5); Mean Corpuscular Hemoglobin 28.8 pg (28.0-33.3); Mean Corpuscular Volume 95.4 fL (83.0-100.0); Mean Platelet Volume 8.7 fL (9.4-12.4); Monocytes # 0.7 K/mcL (0.0-1.3); Monocytes % 5.8 %; Platelet Count 371 K/mcL (140-400); Red Cell Distribution Width 14.9 % (11.5-14.5); Segmented Neutrophils % 82.3 %
[2016-10-13] MEDS ORDERED: Ondansetron 4 MG/2 ML VIAL IVP ONE (17:02)
--- NOTE | 2016-10-13 17:45 | Internal Med Progress Note ---
Date of Encounter: 10/13/16 Time of Encounter: 17:37 - Assessment and plan (1) Acute metabolic encephalopathy Current Visit: Yes Status: Acute Assessment and plan: Likely secondary to urosepsis. Gram-negative bacteremia Patient is an appropriate antibiotic. Zosyn day 4 We will continue this antibiotics as directed. 10/10/2016 day 5 Zosyn doing well and more alert Ecoli sensetive to zosyn 10/11/2016 getting better no new complants. 10/11/2016 day 7 Zosyn urine culture positive for ESBL strain sensitive to Zosyn will continue same antibiotics. 10/13/2016 continue same management cont abx labs in AM (2) UTI (urinary tract infection) Current Visit: Yes Status: Acute Assessment and plan: Possible source for sepsis/acute metabolic encephalopathy will continue present medications Qualifiers: Urinary tract infection type: site unspecified Hematuria presence: without hematuria Qualified Code(s): N39.0 - Urinary tract infection, site not specified (3) Type 2 diabetes mellitus with diabetic chronic kidney disease Current Visit: Yes Status: Acute Assessment and plan: Blood sugars under control. Continue levemir 28 units at night and 25 units in morning. Continue sliding scale Continue diabetic diet. 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 Denies sob, sputum production. On 3L O2 outpatient. SPO2 >90% on 2L. Continue duoneb treatments. Qualifiers: COPD type: unspecified COPD Qualified Code(s): J44.9 - Chronic obstructive pulmonary disease, unspecified (5) Sacral decubitus ulcer, stage II Current Visit: Yes Status: Chronic Assessment and plan: Chronic stage II 2nd to chronic bed rest and DMII Well dressed, clean, no drainage. Continue monitoring. - Subjective Interval history: Patient seen and examined. Chart reviewed. Patient feels much better as compared to yesterday. Prescription written for her for long-term antibiotics. Possible back to [facility] tomorrow 10/10/2016 getting better able to sit up in bed need help from Pt/OT 10/11/2016 Underwent EGD and colonoscopy Presence of stool in colon will repeat colonoscopy in AM 10/12/2016 seen and examined. patient underwent colonoscopy this AM no new developments other willard urine culture is positive for ESBL. patient is on Zosyn will continue same treatment. 10/13/2016 seen and examined no new complaints occasional vomiting with nausea improved with symptomatic treatment. - Constitutional Vitals: Temp Pulse Resp BP Pulse Ox 98.4 F 77 18 199/64 98 10/13/16 16:31 10/13/16 16:31 10/13/16 16:31 10/13/16 16:31 10/13/16 16:31 General appearance: Present: A&O X 3, morbidly obese - Head Head exam: Present: atraumatic, normocephalic - Eye Eye exam: Present: PERRL, conjuntiva pink, sclera anicteric Pupils: Present: PERRL - Neck Neck exam general surgery: Present: supple, trachea midline. Absent: lymphadenopathy - Respiratory Respiratory exam: Present: CTAB. Absent: accessory muscle use, rales, rhonchi, wheezes - Cardiovascular Cardiovascular exam: Present: RRR, +S1, +S2. Absent: diastolic murmur, gallop, rubs, systolic murmur - GI/Abdominal GI/Abdominal exam: Present: normal bowel sounds, soft, no peritoneal signs. Absent: distended, tenderness - Extremities Exam Extremities exam: Present: warm, radial pulses palpable and symetrical. Absent : calf tenderness, cyanotic, pedal edema - Neurological Exam Neurological exam: Present: CN II-XII intact, oriented X3, no focal deficits. Absent: pronater drift, facial droop, speech deficit - Skin Skin exam: Present: dry, intact Internal Medicine: Result - Labs CBC & Chem 7: 10/13/16 16:26 10/12/16 10:05 Labs: Short CBC 10/13/16 Range/Units 16:26 WBC 12.2 H (4.3-11.1) K/mcL Hgb 7.5 L (11.5-15.4) g/dL Hct 24.8 L (35.3-44.9) % Plt Count 371 (140-400) K/mcL Neutrophils # 10.0 H (1.6-8.9) K/mcL - ABG Interpretation ABG results: ABG ABG pH 7.32 pH Units (7.32-7.45) 10/07/16 15:04 ABG pCO2 57 mmHg (35-45) H 10/07/16 15:04 ABG pO2 108 mmHg (85-104) H 10/07/16 15:04 ABG O2 Saturation 98 % (95-98) 10/07/16 15:04 PT/INR, D-dimer PT 13.8 Seconds (9.4-12.1) H 10/07/16 10:09 - VTE Documentation of Mechanical Device: Intermittent pneumatic compression device Consult Discharge Plan - Plan Referrals: NO,PCP [Primary Care Provider] - (Patient follows up with ECF PCP) Prescriptions: Ertapenem [INVanz] 500 mg IVPB DAILY 11 Days
[2016-10-14] MEDS: Ipratropium/Albuterol Neb 3 ML IH SCH ×4 (04:31→21:50)
[2016-10-14] MEDS: Piperacillin/Tazobactam 3.375 GM in D5% in Water (Mini-Bag+) 100 ML IVPB SCH ×2 (06:33→11:26)
[2016-10-14] MEDS: Levothyroxine 25 MCG TABLET PO SCH (06:34)
[2016-10-14] MEDS: Multivit/Ca/Min/Fe/FA 1 TAB TABLET PO SCH (09:08)
[2016-10-14] MEDS: Isosorbide MONOnitrate (24 HR) 30 MG TAB.ER.24H PO SCH (09:08)
[2016-10-14] MEDS: Aspirin 81 MG TAB.CHEW PO SCH (09:08)
[2016-10-14] MEDS: hydrALAZINE 25 MG TABLET PO SCH ×2 (09:08→20:52)
[2016-10-14] MEDS: Metoprolol XL (24 HR) Succ 25 MG TAB.ER.24H PO SCH (09:08)
[2016-10-14] MEDS: traMADol 50 MG TABLET PO PRN (09:08)
[2016-10-14] MEDS: cloNIDine HCl 0.1 MG TABLET PO SCH (09:08)
[2016-10-14] MEDS: Gabapentin 300 MG CAPSULE PO SCH (09:09)
[2016-10-14] MEDS: Loratadine 10 MG TABLET PO SCH (09:09)
[2016-10-14] MEDS: Insulin LISPRO 300 UNITS/3 ML VIAL SQ SCH ×4 (09:10→20:54)
[2016-10-14] MEDS: Insulin DETEMIR 100 UNIT/ML X5UNITS SQ SCH ×2 (09:12→20:56)
[2016-10-14] MEDS: Budesonide Neb 0.5 MG/2 ML IH SCH ×2 (09:33→21:50)
--- NOTE | 2016-10-14 10:00 | Nephrology Progress Note ---
Date of Encounter: 10/14/16 Time of Encounter: 09:55 - Assessment and Plan (1) ARF (acute renal failure) Current Visit: Yes Status: Acute PRADEEP superimposed on stage III CKD in the setting of E coli bacteremia and urinary tract infection and possible component of volume depletion. The patient 's renal function had been improving slowly though no current renal fct today, Labs ordered. Urine output 1225cc. S/P colonoscopy-negative findings. Continue to monitor. Qualifiers: Acute renal failure type: unspecified Qualified Code(s): N17.9 - Acute kidney failure, unspecified Subjective Principal diagnosis: elevated troponin, sepsis, PRADEEP, Anemia Interval history: States feeling better, no new complaints. Objective - Vital Signs Vital signs: Vital Signs Temp Pulse Resp BP Pulse Ox 10/14/16 09:34 18 100 10/14/16 07:19 99.0 F 92 18 138/67 100 10/14/16 05:05 99.6 F 87 16 131/62 97 10/14/16 00:24 100.6 F H 82 16 139/76 100 10/13/16 22:52 100 10/13/16 21:18 98.8 F 84 16 152/54 98 10/13/16 19:04 162/40 10/13/16 16:31 98.4 F 77 18 199/64 98 10/13/16 11:13 97.7 F 83 18 138/69 95 10/13/16 10:51 18 100 Intake and Output 10/13/16 10/14/16 10/14/16 22:59 07:59 15:59 Intake Total 0 / 0 Output Total 0 / 0 Balance 0 / 0 Intake: IV Fluids Zosyn 3.375 GM In Dextrose 5% (Minibag+) 100 ML 100 ML @ 25 mls/hr IVPB Q8H [facility] Rx#: [id number] Oral 0 / 0 Output: Urine 0 / 0 Emesis Catheter Other: Meal npo Percent of Meal Consumed 0% Stool Size Stool Consistency # Bowel Movements Weight Blood Glucose* Patient Weight 10/15/16 00:59 Weight 120.1 kg - General Appearance General appearance: Present: well-developed, well-nourished, appears started age , obese EENT: Present: mucous membranes moist Neck: Present: no JVD Respiratory: Present: clear Cardiology: Present: regular rate, regular rhythm Additional Comments: dependent edema thighs and buttock, 2+ pitting knees down Gastrointestinal: Present: normoactive bowel sounds, no tenderness Integumentary: Present: warm and dry Psychiatric: Present: mood/affect appropriate, cooperative - Lab 10/13/16 16:26 10/12/16 10:05 Most recent lab results ABG pH 7.32 pH Units (7.32-7.45) 10/07/16 15:04 ABG pCO2 57 mmHg (35-45) H 10/07/16 15:04 ABG pO2 108 mmHg (85-104) H 10/07/16 15:04 ABG HCO3 29.4 mEQ/L (21-27) H 10/07/16 15:04 ABG O2 Saturation 98 % (95-98) 10/07/16 15:04 Calcium 8.4 mg/dL (8.6-10.8) L 10/12/16 10:05 Phosphorus 5.7 mg/dL (2.3-4.7) H 10/07/16 10:09 Magnesium 2.4 mg/dL (1.6-2.6) 10/07/16 10:09 - VTE Documentation of Mechanical Device: Intermittent pneumatic compression device Consult Discharge Plan - Plan Referrals: NO,PCP [Primary Care Provider] - (Patient follows up with [facility] PCP) Prescriptions: Ertapenem [INVanz] 500 mg IVPB DAILY 11 Days
[2016-10-14 10:03] LABS: Albumin 2.1 g/dL (3.5-5.0); Albumin/Globulin Ratio 0.4 (1.1-2.2); Bilirubin,Total 2.1 mg/dL (0.2-1.2); Calcium 8.7 mg/dL (8.6-10.8); Globulin 4.8 g/dL (2.4-3.5); Potassium 4.4 mEq/L (3.5-4.5); Total Protein 6.9 g/dL (6.0-8.3)
--- NOTE | 2016-10-14 14:56 | Internal Med Progress Note ---
Date of Encounter: 10/14/16 Time of Encounter: 14:51 - Assessment and plan (1) Acute metabolic encephalopathy Current Visit: Yes Status: Acute Assessment and plan: Likely secondary to urosepsis. Gram-negative bacteremia Patient is an appropriate antibiotic. Zosyn day 4 We will continue this antibiotics as directed. 10/10/2016 day 5 Zosyn doing well and more alert Ecoli sensetive to zosyn 10/11/2016 getting better no new complants. 10/11/2016 day 7 Zosyn urine culture positive for ESBL strain sensitive to Zosyn will continue same antibiotics. 10/13/2016 continue same management cont abx labs in AM 10/14/2016 elevated liver enzymes. was not hypotensive. Will stop Zosyn/Statin/tramadol will repeat labs tomorrow will get GI tomorrow unlikely viral. (2) UTI (urinary tract infection) Current Visit: Yes Status: Acute Assessment and plan: Possible source for sepsis/acute metabolic encephalopathy will continue present medications Qualifiers: Urinary tract infection type: site unspecified Hematuria presence: without hematuria Qualified Code(s): N39.0 - Urinary tract infection, site not specified (3) Type 2 diabetes mellitus with diabetic chronic kidney disease Current Visit: Yes Status: Acute Assessment and plan: Blood sugars under control. Continue levemir 28 units at night and 25 units in morning. Continue sliding scale Continue diabetic diet. 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 Denies sob, sputum production. On 3L O2 outpatient. SPO2 >90% on 2L. Continue duoneb treatments. Qualifiers: COPD type: unspecified COPD Qualified Code(s): J44.9 - Chronic obstructive pulmonary disease, unspecified (5) Sacral decubitus ulcer, stage II Current Visit: Yes Status: Chronic Assessment and plan: Chronic stage II 2nd to chronic bed rest and DMII Well dressed, clean, no drainage. Continue monitoring. - Subjective Interval history: Patient seen and examined. Chart reviewed. Patient feels much better as compared to yesterday. Prescription written for her for long-term antibiotics. Possible back to [facility] tomorrow 10/10/2016 getting better able to sit up in bed need help from Pt/OT 10/11/2016 Underwent EGD and colonoscopy Presence of stool in colon will repeat colonoscopy in AM 10/12/2016 seen and examined. patient underwent colonoscopy this AM no new developments other willard urine culture is positive for ESBL. patient is on Zosyn will continue same treatment. 10/13/2016 seen and examined no new complaints occasional vomiting with nausea improved with symptomatic treatment. 10/14/2016 seen and examined. noted that had an episode of vomiting. elevated liver enzymes. was not hypotensive. Will stop Zosyn/Statin/tramadol will repeat labs tomorrow - Constitutional Vitals: Temp Pulse Resp BP Pulse Ox 99.9 F H 83 18 156/63 96 10/14/16 11:17 10/14/16 11:17 10/14/16 11:17 10/14/16 11:17 10/14/16 11:17 General appearance: Present: A&O X 3, morbidly obese - Head Head exam: Present: atraumatic, normocephalic - Eye Eye exam: Present: PERRL, conjuntiva pink, sclera anicteric Pupils: Present: PERRL - Neck Neck exam general surgery: Present: supple, trachea midline. Absent: lymphadenopathy - Respiratory Respiratory exam: Present: CTAB. Absent: accessory muscle use, rales, rhonchi, wheezes - Cardiovascular Cardiovascular exam: Present: RRR, +S1, +S2. Absent: diastolic murmur, gallop, rubs, systolic murmur - GI/Abdominal GI/Abdominal exam: Present: normal bowel sounds, soft, no peritoneal signs. Absent: distended, tenderness - Extremities Exam Extremities exam: Present: warm, radial pulses palpable and symetrical. Absent : calf tenderness, cyanotic, pedal edema - Neurological Exam Neurological exam: Present: CN II-XII intact, oriented X3, no focal deficits. Absent: pronater drift, facial droop, speech deficit - Skin Skin exam: Present: dry, intact Internal Medicine: Result - Labs CBC & Chem 7: 10/13/16 16:26 10/14/16 09:19 Labs: Short CBC 10/13/16 Range/Units 16:26 WBC 12.2 H (4.3-11.1) K/mcL Hgb 7.5 L (11.5-15.4) g/dL Hct 24.8 L (35.3-44.9) % Plt Count 371 (140-400) K/mcL Neutrophils # 10.0 H (1.6-8.9) K/mcL BMP 10/14/16 09:19 Sodium 141 Potassium 4.4 Chloride 107 Carbon Dioxide 25 BUN 47 H D Creatinine 2.07 H Glucose 124 H Calcium 8.7 Liver Function 10/14/16 Range/Units 09:19 Total Bilirubin 2.1 H D (0.2-1.2) mg/dL AST 230 H (5-34) Units/L ALT 103 H (0-55) Units/L Alkaline Phosphatase 629 H (38-126) Units/L Albumin 2.1 L (3.5-5.0) g/dL - ABG Interpretation ABG results: ABG ABG pH 7.32 pH Units (7.32-7.45) 10/07/16 15:04 ABG pCO2 57 mmHg (35-45) H 10/07/16 15:04 ABG pO2 108 mmHg (85-104) H 10/07/16 15:04 ABG O2 Saturation 98 % (95-98) 10/07/16 15:04 PT/INR, D-dimer PT 13.8 Seconds (9.4-12.1) H 10/07/16 10:09 - VTE Documentation of Mechanical Device: Intermittent pneumatic compression device Consult Discharge Plan - Plan Referrals: NO,PCP [Primary Care Provider] - (Patient follows up with ECF PCP) Prescriptions: Ertapenem [INVanz] 500 mg IVPB DAILY 11 Days
[2016-10-15] MEDS: Ipratropium/Albuterol Neb 3 ML IH SCH ×4 (03:51→22:26)
[2016-10-15] MEDS: Levothyroxine 25 MCG TABLET PO SCH (07:42)
--- NOTE | 2016-10-15 08:19 | Event Note ---
Date of Encounter: 10/15/16 Time of Encounter: 08:19 The patient's renal function has returned to baseline. Creatinine today is 2.07. Baseline creatinine is 2.0-2.4. Nephrology will sign off. Please call again if needed.
[2016-10-15] MEDS: Loratadine 10 MG TABLET PO SCH (09:13)
[2016-10-15] MEDS: Insulin LISPRO 300 UNITS/3 ML VIAL SQ SCH ×4 (09:13→23:32)
[2016-10-15] MEDS: Aspirin 81 MG TAB.CHEW PO SCH (09:14)
[2016-10-15] MEDS: Isosorbide MONOnitrate (24 HR) 30 MG TAB.ER.24H PO SCH (09:14)
[2016-10-15] MEDS: cloNIDine HCl 0.1 MG TABLET PO SCH (09:14)
[2016-10-15] MEDS: Metoprolol XL (24 HR) Succ 25 MG TAB.ER.24H PO SCH (09:14)
[2016-10-15] MEDS: Gabapentin 300 MG CAPSULE PO SCH (09:14)
[2016-10-15] MEDS: Multivit/Ca/Min/Fe/FA 1 TAB TABLET PO SCH (09:14)
[2016-10-15] MEDS: hydrALAZINE 25 MG TABLET PO SCH ×2 (09:14→23:31)
[2016-10-15] MEDS: Insulin DETEMIR 100 UNIT/ML X5UNITS SQ SCH ×2 (09:18→23:31)
[2016-10-15] MEDS: Budesonide Neb 0.5 MG/2 ML IH SCH ×2 (11:14→22:26)
[2016-10-15] MEDS: Acetaminophen 325 MG TABLET PO PRN (11:41)
[2016-10-15 13:31] LABS: Basophils % 0.2 %; Eosinophils # 0.1 K/mcL (0.0-0.6); Eosinophils % 0.7 %; Hematocrit 24.6 % (35.3-44.9); Hemoglobin 7.5 g/dL (11.5-15.4); Immature Granulocytes % 0.8 % (0-4); Lymphocytes # 1.3 K/mcL (0.6-4.6); Lymphocytes % 7.1 %; Mean Corpuscular HGB Conc 30.5 g/dL (31.6-35.5); Mean Platelet Volume 8.8 fL (9.4-12.4); Monocytes % 5.4 %; Neutrophils # 15.2 K/mcL (1.6-8.9); Platelet Count 320 K/mcL (140-400); Red Blood Count 2.59 M/mcL (3.82-4.97); Red Cell Distribution Width 15.9 % (11.5-14.5); Segmented Neutrophils % 85.8 %
[2016-10-15 14:34] LABS: Albumin/Globulin Ratio 0.4 (1.1-2.2); Bilirubin,Total 2.1 mg/dL (0.2-1.2); Calcium 8.8 mg/dL (8.6-10.8); Globulin 4.4 g/dL (2.4-3.5); Potassium 4.1 mEq/L (3.5-4.5); Total Protein 6.3 g/dL (6.0-8.3)
[2016-10-15 14:35] LABS: Albumin 1.9 g/dL (3.5-5.0)
--- NOTE | 2016-10-15 16:19 | Internal Med Progress Note ---
Date of Encounter: 10/15/16 Time of Encounter: 16:10 - Assessment and plan (1) Acute metabolic encephalopathy Current Visit: Yes Status: Acute Assessment and plan: Likely secondary to urosepsis. Gram-negative bacteremia Patient is an appropriate antibiotic. Zosyn day 4 We will continue this antibiotics as directed. 10/10/2016 day 5 Zosyn doing well and more alert Ecoli sensetive to zosyn 10/11/2016 getting better no new complants. 10/11/2016 day 7 Zosyn urine culture positive for ESBL strain sensitive to Zosyn will continue same antibiotics. 10/13/2016 continue same management cont abx labs in AM 10/14/2016 elevated liver enzymes. was not hypotensive. Will stop Zosyn/Statin/tramadol will repeat labs tomorrow will get GI tomorrow unlikely viral. 10/15/2016 Liver enzymes trending down Bili around same Patient received 7.5 days of zosyn will get right upper quadrant US GI consulted. call completed. Started Meropenum. (2) UTI (urinary tract infection) Current Visit: Yes Status: Acute Assessment and plan: Possible source for sepsis/acute metabolic encephalopathy will continue present medications Qualifiers: Urinary tract infection type: site unspecified Hematuria presence: without hematuria Qualified Code(s): N39.0 - Urinary tract infection, site not specified (3) Type 2 diabetes mellitus with diabetic chronic kidney disease Current Visit: Yes Status: Acute Assessment and plan: Blood sugars under control. Continue levemir 28 units at night and 25 units in morning. Continue sliding scale Continue diabetic diet. 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 Denies sob, sputum production. On 3L O2 outpatient. SPO2 >90% on 2L. Continue duoneb treatments. Qualifiers: COPD type: unspecified COPD Qualified Code(s): J44.9 - Chronic obstructive pulmonary disease, unspecified (5) Sacral decubitus ulcer, stage II Current Visit: Yes Status: Chronic Assessment and plan: Chronic stage II 2nd to chronic bed rest and DMII Well dressed, clean, no drainage. Continue monitoring. - Subjective Interval history: Patient seen and examined. Chart reviewed. Patient feels much better as compared to yesterday. Prescription written for her for long-term antibiotics. Possible back to [facility] tomorrow 10/10/2016 getting better able to sit up in bed need help from Pt/OT 10/11/2016 Underwent EGD and colonoscopy Presence of stool in colon will repeat colonoscopy in AM 10/12/2016 seen and examined. patient underwent colonoscopy this AM no new developments other willard urine culture is positive for ESBL. patient is on Zosyn will continue same treatment. 10/13/2016 seen and examined no new complaints occasional vomiting with nausea improved with symptomatic treatment. 10/14/2016 seen and examined. noted that had an episode of vomiting. elevated liver enzymes. was not hypotensive. Will stop Zosyn/Statin/tramadol will repeat labs tomorrow 10/15/2016 seen and examined. chart reviewed LFT downward trend more alert and oriented. noted nephrology signed off - Constitutional Vitals: Temp Pulse Resp BP Pulse Ox 99.3 F 78 18 119/75 100 10/15/16 11:26 10/15/16 11:26 10/15/16 11:26 10/15/16 11:26 10/15/16 11:26 General appearance: Present: A&O X 3, morbidly obese - Head Head exam: Present: atraumatic, normocephalic - Eye Eye exam: Present: PERRL, conjuntiva pink, sclera anicteric Pupils: Present: PERRL - Neck Neck exam general surgery: Present: supple, trachea midline. Absent: lymphadenopathy - Respiratory Respiratory exam: Present: CTAB. Absent: accessory muscle use, rales, rhonchi, wheezes - Cardiovascular Cardiovascular exam: Present: RRR, +S1, +S2. Absent: diastolic murmur, gallop, rubs, systolic murmur - GI/Abdominal GI/Abdominal exam: Present: normal bowel sounds, soft, no peritoneal signs. Absent: distended, tenderness - Extremities Exam Extremities exam: Present: warm, radial pulses palpable and symetrical. Absent : calf tenderness, cyanotic, pedal edema - Neurological Exam Neurological exam: Present: CN II-XII intact, oriented X3, no focal deficits. Absent: pronater drift, facial droop, speech deficit - Skin Skin exam: Present: dry, intact Internal Medicine: Result - Labs CBC & Chem 7: 10/15/16 13:03 10/15/16 13:03 Labs: Short CBC 10/15/16 Range/Units 13:03 WBC 17.7 H (4.3-11.1) K/mcL Hgb 7.5 L (11.5-15.4) g/dL Hct 24.6 L (35.3-44.9) % Plt Count 320 (140-400) K/mcL Neutrophils # 15.2 H (1.6-8.9) K/mcL BMP 10/15/16 13:03 Sodium 140 Potassium 4.1 Chloride 108 Carbon Dioxide 27 BUN 45 H Creatinine 2.04 H Glucose 136 H Calcium 8.8 Liver Function 10/15/16 Range/Units 13:03 Total Bilirubin 2.1 H (0.2-1.2) mg/dL AST 140 H (5-34) Units/L ALT 95 H (0-55) Units/L Alkaline Phosphatase 583 H (38-126) Units/L Albumin 1.9 L (3.5-5.0) g/dL - ABG Interpretation ABG results: ABG ABG pH 7.32 pH Units (7.32-7.45) 10/07/16 15:04 ABG pCO2 57 mmHg (35-45) H 10/07/16 15:04 ABG pO2 108 mmHg (85-104) H 10/07/16 15:04 ABG O2 Saturation 98 % (95-98) 10/07/16 15:04 PT/INR, D-dimer PT 13.8 Seconds (9.4-12.1) H 10/07/16 10:09 - VTE Documentation of Mechanical Device: Intermittent pneumatic compression device Consult Discharge Plan - Plan Referrals: NO,PCP [Primary Care Provider] - (Patient follows up with [facility] PCP) Prescriptions: Ertapenem [INVanz] 500 mg IVPB DAILY 11 Days
[2016-10-15] MEDS: clonazePAM 1 MG TABLET PO PRN (17:09)
[2016-10-15] MEDS: Meropenem 500 MG in 0.9 % Sodium Chloride Mini Bag 100 ML IVPB SCH (17:09)
[2016-10-16] MEDS: Ipratropium/Albuterol Neb 3 ML IH SCH ×4 (04:23→21:51)
[2016-10-16] MEDS: Acetaminophen 325 MG TABLET PO PRN (04:34)
[2016-10-16 04:47] LABS: Basophils % 0.3 %; Eosinophils # 0.3 K/mcL (0.0-0.6); Eosinophils % 2.2 %; Hematocrit 25.1 % (35.3-44.9); Hemoglobin 7.6 g/dL (11.5-15.4); Immature Granulocytes % 0.7 % (0-4); Lymphocytes # 1.2 K/mcL (0.6-4.6); Lymphocytes % 9.1 %; Mean Corpuscular HGB Conc 30.3 g/dL (31.6-35.5); Mean Corpuscular Hemoglobin 29.2 pg (28.0-33.3); Mean Corpuscular Volume 96.5 fL (83.0-100.0); Mean Platelet Volume 8.6 fL (9.4-12.4); Monocytes % 7.5 %; Platelet Count 313 K/mcL (140-400); Segmented Neutrophils % 80.2 %
[2016-10-16 04:58] LABS: Albumin/Globulin Ratio 0.4 (1.1-2.2); Bilirubin,Total 1.8 mg/dL (0.2-1.2); Calcium 8.4 mg/dL (8.6-10.8); Globulin 4.7 g/dL (2.4-3.5); Potassium 4.2 mEq/L (3.5-4.5); Total Protein 6.5 g/dL (6.0-8.3)
[2016-10-16 04:59] LABS: Albumin 1.8 g/dL (3.5-5.0)
[2016-10-16] MEDS: Levothyroxine 25 MCG TABLET PO SCH (05:51)
[2016-10-16] MEDS: Meropenem 500 MG in 0.9 % Sodium Chloride Mini Bag 100 ML IVPB SCH (06:07)
[2016-10-16] MEDS: Insulin LISPRO 300 UNITS/3 ML VIAL SQ SCH ×4 (08:10→21:48)
[2016-10-16] MEDS: Insulin DETEMIR 100 UNIT/ML X5UNITS SQ SCH ×2 (08:23→21:50)
--- NOTE | 2016-10-16 09:53 | Gastroenterology Progress Note ---
<Mary Peters - Last Filed: 10/16/16 10:54> Date of Encounter: 10/16/16 Time of Encounter: 10:45 - Assessment and plan (1) Elevated LFTs Current Visit: Yes Status: Acute Assessment and plan: Trending lower, likely DILI, continue to monitor. - Time Spent With Patient Total time spent is greater than 50% in coordination of care (as documented) at patient's floor/unit and/or counseling patient: less than 15 minutes - Subjective Interval history: Patient initially seen by GI in consultation for anemia. She underwent EGD/ Cscope with no significant findings. Ultimately she was dx with sepsis, UTI and placed on several atbs, incuding zosyn. On 10/14 it was noted she was experiencing a rise in LFTs. Attending held several medications, including atb, and currently LFTs are trending lower. Initial imaging of liver at time of admission was negative for any evidence of liver disease. ALK phos remains high at 639, up from 629 on 10/14. Bili has dropped from 2.1 to 1.8. AST trending lower from 230 to 120, ALT also lower from 103 to 83. Attending indicates he is ordering a US GB. Patient denies etoh use/abuse history. She still complains of abdominal pain daily, nausea, some vomiting. Unknown nature of her stools. - Constitutional Vitals: Temp Pulse Resp BP Pulse Ox 98.3 F 67 16 96/60 100 10/16/16 07:20 10/16/16 07:20 10/16/16 07:20 10/16/16 07:20 10/16/16 08:26 General appearance: Present: cooperative, A&O X 3, no acute distress, answers questions appropriately - Head Head exam: Present: atraumatic, normocephalic - Eye Eye exam: Present: scleral icterus Additional comments: mild - ENT ENT exam: Present: mucous membranes moist - Neck Neck exam general surgery: Present: normal inspection, trachea midline - Respiratory Respiratory exam: Present: CTAB - Cardiovascular Cardiovascular exam: Present: RRR, +S1, +S2 - GI/Abdominal GI/Abdominal exam: Present: normal bowel sounds, soft, no peritoneal signs - Rectal Rectal exam: Present: deferred - Extremities Exam Extremities exam: Present: pedal edema - Neurological Exam Neurological exam: Present: no focal deficits - Psychiatric Psychiatric exam: Present: normal affect, normal mood - Skin Skin exam: Present: dry, intact, normal color, warm Results - Labs CBC & Chem 7: 10/16/16 04:40 10/16/16 04:40 Labs: Last Result Calcium 8.4 mg/dL (8.6-10.8) L 10/16/16 04:40 Iron 16 mcg/dL (50-170) L 10/08/16 15:15 % Saturation 12 % (15-50) L 10/08/16 15:15 Transferrin 99 mg/dL (180-382) L 10/08/16 15:15 Ferritin 651 ng/ml (5-204) H 10/08/16 15:15 Troponin I 0.94 ng/mL (0-0.03) H* 10/08/16 11:12 Vitamin B12 760 pg/mL (213-816) 10/08/16 15:15 Folate 16.2 ng/mL (7.0-31.4) 10/08/16 15:15 Stool Occult Blood Negative (Negative) 10/11/16 01:44 Entire Visit Hgb 7.6 g/dL (11.5-15.4) L 10/16/16 04:40 Hct 25.1 % (35.3-44.9) L 10/16/16 04:40 PT 13.8 Seconds (9.4-12.1) H 10/07/16 10:09 Ferritin 651 ng/ml (5-204) H 10/08/16 15:15 Total Bilirubin 1.8 mg/dL (0.2-1.2) H 10/16/16 04:40 AST 120 Units/L (5-34) H 10/16/16 04:40 ALT 83 Units/L (0-55) H 10/16/16 04:40 Lipase 23 Units/L (8-78) 10/07/16 10:09 Folate 16.2 ng/mL (7.0-31.4) 10/08/16 15:15 E. coli (PCR) DETECTED (Not Detect) A 10/07/16 10:21 - ABG ABG results: ABG ABG pH 7.32 pH Units (7.32-7.45) 10/07/16 15:04 ABG pCO2 57 mmHg (35-45) H 10/07/16 15:04 ABG pO2 108 mmHg (85-104) H 10/07/16 15:04 ABG O2 Saturation 98 % (95-98) 10/07/16 15:04 PT/INR, D-dimer PT 13.8 Seconds (9.4-12.1) H 10/07/16 10:09 - VTE Documentation of Mechanical Device: Intermittent pneumatic compression device Consult Discharge Plan - Plan Referrals: NO,PCP [Primary Care Provider] - (Patient follows up with [facility] PCP) Prescriptions: Ertapenem [INVanz] 500 mg IVPB DAILY 11 Days <Jaylon Caceres - Last Filed: 10/16/16 18:07> Time of Encounter: 14:00 - Time Spent With Patient Total time spent is greater than 50% in coordination of care (as documented) at patient's floor/unit and/or counseling patient: - Constitutional Vitals: Temp Pulse Resp BP Pulse Ox 97.6 F 64 18 141/74 100 10/16/16 15:55 10/16/16 15:55 10/16/16 16:14 10/16/16 15:55 10/16/16 16:14 Results - Labs CBC & Chem 7: 10/16/16 04:40 10/16/16 04:40 Labs: Last Result Calcium 8.4 mg/dL (8.6-10.8) L 10/16/16 04:40 Iron 16 mcg/dL (50-170) L 10/08/16 15:15 % Saturation 12 % (15-50) L 10/08/16 15:15 Transferrin 99 mg/dL (180-382) L 10/08/16 15:15 Ferritin 651 ng/ml (5-204) H 10/08/16 15:15 Troponin I 0.94 ng/mL (0-0.03) H* 10/08/16 11:12 Vitamin B12 760 pg/mL (213-816) 10/08/16 15:15 Folate 16.2 ng/mL (7.0-31.4) 10/08/16 15:15 Stool Occult Blood Negative (Negative) 10/11/16 01:44 Entire Visit Hgb 7.6 g/dL (11.5-15.4) L 10/16/16 04:40 Hct 25.1 % (35.3-44.9) L 10/16/16 04:40 PT 13.8 Seconds (9.4-12.1) H 10/07/16 10:09 Ferritin 651 ng/ml (5-204) H 10/08/16 15:15 Total Bilirubin 1.8 mg/dL (0.2-1.2) H 10/16/16 04:40 AST 120 Units/L (5-34) H 10/16/16 04:40 ALT 83 Units/L (0-55) H 10/16/16 04:40 Lipase 21 Units/L (8-78) 10/16/16 04:40 Folate 16.2 ng/mL (7.0-31.4) 10/08/16 15:15 E. coli (PCR) DETECTED (Not Detect) A 10/07/16 10:21 - ABG ABG results: ABG ABG pH 7.32 pH Units (7.32-7.45) 10/07/16 15:04 ABG pCO2 57 mmHg (35-45) H 10/07/16 15:04 ABG pO2 108 mmHg (85-104) H 10/07/16 15:04 ABG O2 Saturation 98 % (95-98) 10/07/16 15:04 PT/INR, D-dimer PT 13.8 Seconds (9.4-12.1) H 10/07/16 10:09 - Impressions Impressions Abdomen Ultrasound 10/16/16 09:30 IMPRESSION: Borderline mild wall thickening of the gallbladder is favored to be due to contraction rather than cholecystitis. Possible trace amount of adjacent pericholecystic fluid of doubtful significance. Correlate clinically for any evidence of mild cholecystitis, which cannot be entirely excluded. There is a moderate amount of gallbladder sludge but no evidence of cholelithiasis. Otherwise negative examination. D/ / Collins Johnson MD / Collins Johnson MD Interpreting Provider: Collins Johnson MD - Attending Attestation I examined this patient and my medical decision-making was reviewed with the LINING STRAP CLOSER/PA/Advanced Practice Nurse/Resident Physician. I agree with the documented findings, disposition and treatment plan as described except to the extent set forth below. If ALk phosphatase remain elevated then she will need an MRCP
[2016-10-16] MEDS: Aspirin 81 MG TAB.CHEW PO SCH (10:55)
[2016-10-16] MEDS: cloNIDine HCl 0.1 MG TABLET PO SCH (10:55)
[2016-10-16] MEDS: Loratadine 10 MG TABLET PO SCH (10:55)
[2016-10-16] MEDS: hydrALAZINE 25 MG TABLET PO SCH ×2 (10:55→21:56)
[2016-10-16] MEDS: Metoprolol XL (24 HR) Succ 25 MG TAB.ER.24H PO SCH (10:56)
[2016-10-16] MEDS: Multivit/Ca/Min/Fe/FA 1 TAB TABLET PO SCH (10:56)
[2016-10-16] MEDS: Isosorbide MONOnitrate (24 HR) 30 MG TAB.ER.24H PO SCH (10:56)
[2016-10-16] MEDS: Gabapentin 300 MG CAPSULE PO SCH (10:56)
[2016-10-16] MEDS: *HR* Dextrose 50 % in Water (Syg) 50 ML SYRINGE IVP PRN ×3 (11:00→16:49)
[2016-10-16] MEDS: Budesonide Neb 0.5 MG/2 ML IH SCH ×2 (11:24→21:52)
--- NOTE | 2016-10-16 14:49 | Internal Med Progress Note ---
<Fadia Oglesby - Last Filed: 10/16/16 14:47> Date of Encounter: 10/16/16 Time of Encounter: 09:00 - Assessment and plan (1) Acute metabolic encephalopathy Current Visit: Yes Status: Acute Assessment and plan: Likely secondary to urosepsis. Culture positive for ESBL, sensitive to zosyn and meropenem/ertapenem Patient had rise in LFTs 10/14, zoysn stopped and switched to meropenem after 7.5 days of zosyn ALK phos remains high at 639, up from 629 on 10/14. Bili has dropped from 2.1 to 1.8. AST trending lower from 230 to 120, ALT also lower from 103 to 83. Abdomen Ultrasound 10/16/16 09:30 IMPRESSION: Borderline mild wall thickening of the gallbladder is favored to be due to contraction rather than cholecystitis. Possible trace amount of adjacent pericholecystic fluid of doubtful significance. Correlate clinically for any evidence of mild cholecystitis, which cannot be entirely excluded. There is a moderate amount of gallbladder sludge but no evidence of cholelithiasis. Plan: -Will switch abx to ertapenem 500mg daily starting this evening -GI has been consulted regarding the increase in LFTs and abdominal pain, recommendations are appreciated. (2) UTI (urinary tract infection) Current Visit: Yes Status: Acute Assessment and plan: Per above plan Qualifiers: Urinary tract infection type: site unspecified Hematuria presence: without hematuria Qualified Code(s): N39.0 - Urinary tract infection, site not specified (3) COPD (chronic obstructive pulmonary disease) Current Visit: No Status: Acute Assessment and plan: History of COPD, On 3L O2 outpatient. Plan: -Titrate O2 to keep SPO2 >90%. -Continue duoneb treatments. Qualifiers: COPD type: unspecified COPD Qualified Code(s): J44.9 - Chronic obstructive pulmonary disease, unspecified (4) Type 2 diabetes mellitus with diabetic chronic kidney disease Current Visit: Yes Status: Chronic Assessment and plan: Blood sugars well controlled. Plan: -Continue levemir 28 units at night and 25 units in morning. -Continue sliding scale -Continue diabetic diet. Qualifiers: Diabetes mellitus sheetmetal worker insulin use: with alf use Chronic kidney disease stage: stage 3 (moderate) Qualified Code(s): E11.22 - Type 2 diabetes mellitus with diabetic chronic kidney disease; N18.3 - Chronic kidney disease, stage 3 (moderate); Z79.4 - oriental rug stretcher (current) use of insulin (5) Sacral decubitus ulcer, stage II Current Visit: Yes Status: Chronic Assessment and plan: Chronic stage II secondary to chronic bed rest and DMII Continue monitoring. - Subjective Interval history: Patient seen and examined. She reports continued RUQ abdominal pain that is a constant dull ache that is rated a 8/10. She also notes that the catheter is irritating her. Patient denies fevers, chills, cp, sob. - Constitutional Vitals: Temp Pulse Resp BP Pulse Ox 97.7 F 75 16 168/80 100 10/16/16 10:59 10/16/16 10:59 10/16/16 11:24 10/16/16 10:59 10/16/16 11:24 General appearance: Present: A&O X 3, morbidly obese, pleasant, no acute distress - Head Head exam: Present: atraumatic, normocephalic - Eye Eye exam: Present: PERRL, conjuntiva pink, sclera anicteric Pupils: Present: PERRL - ENT ENT exam: Present: mucous membranes moist - Neck Neck exam general surgery: Present: supple, trachea midline. Absent: lymphadenopathy - Respiratory Respiratory exam: Present: CTAB. Absent: accessory muscle use, rales, rhonchi, wheezes - Cardiovascular Cardiovascular exam: Present: RRR, +S1, +S2. Absent: diastolic murmur, gallop, rubs, systolic murmur - GI/Abdominal GI/Abdominal exam: Present: normal bowel sounds, soft, tenderness (RUQ), no peritoneal signs - Extremities Exam Extremities exam: Present: normal capillary refill, pedal edema, warm, radial pulses palpable and symetrical Additional comments: chronic venous stasis changes - Expanded Lower Extremities Exam Lower Leg exam: Present: deformity (Right LE deformity secondary to non-healed fracture) - Neurological Exam Neurological exam: Present: alert, oriented X3, no focal deficits - Psychiatric Psychiatric exam: Present: normal affect, normal mood - Skin Skin exam: Absent: diaphoretic, erythema, rash Internal Medicine: Result - Labs CBC & Chem 7: 10/16/16 04:40 10/16/16 04:40 Labs: Short CBC 10/16/16 Range/Units 04:40 WBC 13.7 H (4.3-11.1) K/mcL Hgb 7.6 L (11.5-15.4) g/dL Hct 25.1 L (35.3-44.9) % Plt Count 313 (140-400) K/mcL Neutrophils # 11.0 H (1.6-8.9) K/mcL BMP 10/16/16 04:40 Sodium 141 Potassium 4.2 Chloride 108 Carbon Dioxide 25 BUN 44 H Creatinine 1.95 H Glucose 67 L Calcium 8.4 L Liver Function 10/16/16 Range/Units 04:40 Total Bilirubin 1.8 H (0.2-1.2) mg/dL AST 120 H (5-34) Units/L ALT 83 H (0-55) Units/L Alkaline Phosphatase 639 H (38-126) Units/L Albumin 1.8 L (3.5-5.0) g/dL - ABG Interpretation ABG results: ABG ABG pH 7.32 pH Units (7.32-7.45) 10/07/16 15:04 ABG pCO2 57 mmHg (35-45) H 10/07/16 15:04 ABG pO2 108 mmHg (85-104) H 10/07/16 15:04 ABG O2 Saturation 98 % (95-98) 10/07/16 15:04 PT/INR, D-dimer PT 13.8 Seconds (9.4-12.1) H 10/07/16 10:09 - Impressions Impressions Abdomen Ultrasound 10/16/16 09:30 IMPRESSION: Borderline mild wall thickening of the gallbladder is favored to be due to contraction rather than cholecystitis. Possible trace amount of adjacent pericholecystic fluid of doubtful significance. Correlate clinically for any evidence of mild cholecystitis, which cannot be entirely excluded. There is a moderate amount of gallbladder sludge but no evidence of cholelithiasis. Otherwise negative examination. D/ / Collins Johnson MD / Collins Johnson MD Interpreting Provider: Collins Johnson MD - Diagnostic Studies US - abdomen Additional comments: Abdomen Ultrasound 10/16/16 09:30 IMPRESSION: Borderline mild wall thickening of the gallbladder is favored to be due to contraction rather than cholecystitis. Possible trace amount of adjacent pericholecystic fluid of doubtful significance. Correlate clinically for any evidence of mild cholecystitis, which cannot be entirely excluded. There is a moderate amount of gallbladder sludge but no evidence of cholelithiasis. Otherwise negative examination. D/ / Collins Johnson MD / Collins Johnson MD Interpreting Provider: Collins Johnson MD - VTE Documentation of Mechanical Device: Intermittent pneumatic compression device Consult Discharge Plan - Plan Referrals: NO,PCP [Primary Care Provider] - (Patient follows up with [facility] PCP) Prescriptions: Ertapenem [INVanz] 500 mg IVPB DAILY 11 Days <Bobby Murray - Last Filed: 10/16/16 18:01> - Assessment and plan (1) Infection due to ESBL-producing Escherichia coli Current Visit: Yes Status: Acute (2) Bacteremia, escherichia coli Current Visit: Yes Status: Acute Assessment and plan: Repeat blood cultures. (3) UTI (urinary tract infection) Current Visit: Yes Status: Acute Qualifiers: Urinary tract infection type: acute cystitis Hematuria presence: without hematuria Qualified Code(s): N30.00 - Acute cystitis without hematuria (4) Chronic kidney disease, stage III (moderate) Current Visit: Yes Status: Chronic (5) Diabetes mellitus Current Visit: No Status: Chronic Qualifiers: Diabetes mellitus type: type 2 Diabetes mellitus complication status: with kidney complications Diabetes mellitus complication detail: with chronic kidney disease Diabetes mellitus sheetmetal worker insulin use: with alf use Chronic kidney disease stage: stage 4 (severe) Qualified Code(s): E11.22 - Type 2 diabetes mellitus with diabetic chronic kidney disease; N18.4 - Chronic kidney disease, stage 4 (severe); Z79.4 - oriental rug stretcher (current) use of insulin (6) Acute metabolic encephalopathy Current Visit: Yes Status: Acute (7) Intrahepatic cholestasis Current Visit: Yes Status: Acute Assessment and plan: Most likely drug related. - Constitutional Vitals: Temp Pulse Resp BP Pulse Ox 97.6 F 64 18 141/74 100 10/16/16 15:55 10/16/16 15:55 10/16/16 16:14 10/16/16 15:55 10/16/16 16:14 Internal Medicine: Result - Labs CBC & Chem 7: 10/16/16 04:40 10/16/16 04:40 Labs: Short CBC 10/16/16 Range/Units 04:40 WBC 13.7 H (4.3-11.1) K/mcL Hgb 7.6 L (11.5-15.4) g/dL Hct 25.1 L (35.3-44.9) % Plt Count 313 (140-400) K/mcL Neutrophils # 11.0 H (1.6-8.9) K/mcL BMP 10/16/16 04:40 Sodium 141 Potassium 4.2 Chloride 108 Carbon Dioxide 25 BUN 44 H Creatinine 1.95 H Glucose 67 L Calcium 8.4 L Liver Function 10/16/16 Range/Units 04:40 Total Bilirubin 1.8 H (0.2-1.2) mg/dL AST 120 H (5-34) Units/L ALT 83 H (0-55) Units/L Alkaline Phosphatase 639 H (38-126) Units/L Albumin 1.8 L (3.5-5.0) g/dL - ABG Interpretation ABG results: ABG ABG pH 7.32 pH Units (7.32-7.45) 10/07/16 15:04 ABG pCO2 57 mmHg (35-45) H 10/07/16 15:04 ABG pO2 108 mmHg (85-104) H 10/07/16 15:04 ABG O2 Saturation 98 % (95-98) 10/07/16 15:04 PT/INR, D-dimer PT 13.8 Seconds (9.4-12.1) H 10/07/16 10:09 - Impressions Impressions Abdomen Ultrasound 10/16/16 09:30 IMPRESSION: Borderline mild wall thickening of the gallbladder is favored to be due to contraction rather than cholecystitis. Possible trace amount of adjacent pericholecystic fluid of doubtful significance. Correlate clinically for any evidence of mild cholecystitis, which cannot be entirely excluded. There is a moderate amount of gallbladder sludge but no evidence of cholelithiasis. Otherwise negative examination. D/ / Collins Johnson MD / Collins Johnson MD Interpreting Provider: Collins Johnson MD - Attending Attestation I examined this patient and my medical decision-making was reviewed with the Resident Physician on 10/16/16. I agree with the documented findings, disposition and treatment plan as described except to the extent set forth below. Ms. Dsouza is currently admitted for acute encephalopathy most likely due to UTI. She continues to have some RUQ discomfort. She remains moderate to high risk due to potential for worsening infection and liver disease. Ms. Dsouza just returned from ultrasound. She still has some RUQ discomfort. No fever or chills noted. LFTs seem somewhat better with change of abx. No dyspnea noted. No diarrhea noted. Exam Alert. Comfortable at rest Heart reg Lungs diminished Abd soft. Some RUQ discomfort - no rebound. Urine and blood positive for ESBL E coli I/P 1. ESBL E coli bacteremia and UTI - needs repeat blood cx. as has not had a negative blood culture documented. Currently on IV Ertapenem. Will ask for ID recommendation regarding IV abx length. 2. Encephalopathy 3. RUQ discomfort and elevated LFTs - probably drug induced. ? chronic cholecystitis Further diagnoses and plan as above.
[2016-10-16] MEDS: clonazePAM 1 MG TABLET PO PRN (18:15)
[2016-10-17] MEDS: Ipratropium/Albuterol Neb 3 ML IH SCH ×4 (03:56→22:22)
[2016-10-17 05:14] LABS: Basophils # 0.1 K/mcL (0.0-0.2); Basophils % 0.4 %; Eosinophils # 0.4 K/mcL (0.0-0.6); Hematocrit 25.2 % (35.3-44.9); Hemoglobin 7.7 g/dL (11.5-15.4); Immature Granulocytes % 0.5 % (0-4); Lymphocytes # 1.1 K/mcL (0.6-4.6); Lymphocytes % 9.3 %; Mean Corpuscular HGB Conc 30.6 g/dL (31.6-35.5); Mean Corpuscular Hemoglobin 29.4 pg (28.0-33.3); Mean Corpuscular Volume 96.2 fL (83.0-100.0); Mean Platelet Volume 9.3 fL (9.4-12.4); Monocytes # 0.7 K/mcL (0.0-1.3); Monocytes % 5.8 %; Neutrophils # 9.5 K/mcL (1.6-8.9); Platelet Count 344 K/mcL (140-400); Red Blood Count 2.62 M/mcL (3.82-4.97); Red Cell Distribution Width 16.2 % (11.5-14.5)
[2016-10-17 05:27] LABS: Albumin/Globulin Ratio 0.3 (1.1-2.2); Bilirubin,Total 1.3 mg/dL (0.2-1.2); Calcium 8.5 mg/dL (8.6-10.8); Potassium 4.3 mEq/L (3.5-4.5); Total Protein 6.7 g/dL (6.0-8.3)
[2016-10-17 05:31] LABS: Albumin 1.7 g/dL (3.5-5.0)
[2016-10-17] MEDS: Levothyroxine 25 MCG TABLET PO SCH (06:14)
[2016-10-17] MEDS: Insulin LISPRO 300 UNITS/3 ML VIAL SQ SCH ×4 (07:28→22:04)
[2016-10-17] MEDS: Insulin DETEMIR 100 UNIT/ML X5UNITS SQ SCH ×2 (07:29→22:02)
[2016-10-17] MEDS: cloNIDine HCl 0.1 MG TABLET PO SCH (08:05)
[2016-10-17] MEDS: Multivit/Ca/Min/Fe/FA 1 TAB TABLET PO SCH (08:05)
[2016-10-17] MEDS: Metoprolol XL (24 HR) Succ 25 MG TAB.ER.24H PO SCH (08:05)
[2016-10-17] MEDS: Isosorbide MONOnitrate (24 HR) 30 MG TAB.ER.24H PO SCH (08:05)
[2016-10-17] MEDS: Loratadine 10 MG TABLET PO SCH (08:05)
[2016-10-17] MEDS: Aspirin 81 MG TAB.CHEW PO SCH (08:05)
[2016-10-17] MEDS: Gabapentin 300 MG CAPSULE PO SCH (08:05)
[2016-10-17] MEDS: hydrALAZINE 25 MG TABLET PO SCH ×2 (08:05→19:42)
--- NOTE | 2016-10-17 08:36 | Internal Med Progress Note ---
<Fadia Oglesby - Last Filed: 10/17/16 12:32> Date of Encounter: 10/17/16 Time of Encounter: 08:34 - Assessment and plan (1) Acute metabolic encephalopathy Current Visit: Yes Status: Resolved Assessment and plan: Likely secondary to urosepsis, bacteremia. Culture positive for ESBL, sensitive to zosyn and meropenem/ertapenem Patient had rise in LFTs 10/14, zoysn stopped and switched to meropenem after 7.5 days of zosyn ALK phos remains high at 659, up from 629 on 10/14. Bili has dropped from 1.8 to 1.3. AST trending lower from 120 to 80, ALT also lower from 83 to 66. Blood Cultures from 10/07 grew ESBL. Blood Cultures redrawn last night. Plan: -Continue ertapenem -ID has been consulted, recommends continuing ertapenem coverage through if cultures from 10/16/16 are negative. -GI has been consulted regarding the increase in LFTs and abdominal pain, recommendations are appreciated. -Alk phos continues to rise today, will order MRCP per GI recommendation (2) UTI (urinary tract infection) Current Visit: Yes Status: Acute Assessment and plan: Per above plan Qualifiers: Urinary tract infection type: acute cystitis Hematuria presence: without hematuria Qualified Code(s): N30.00 - Acute cystitis without hematuria (3) COPD (chronic obstructive pulmonary disease) Current Visit: No Status: Acute Assessment and plan: History of COPD, On 3L O2 outpatient. Plan: -Titrate O2 to keep SPO2 >90%. -Continue duoneb treatments. Qualifiers: COPD type: unspecified COPD Qualified Code(s): J44.9 - Chronic obstructive pulmonary disease, unspecified (4) Type 2 diabetes mellitus with diabetic chronic kidney disease Current Visit: Yes Status: Chronic Assessment and plan: Blood sugars well controlled. Plan: -Continue levemir 28 units at night and 25 units in morning. -Continue sliding scale -Continue diabetic diet. Qualifiers: Diabetes mellitus skilled nursing insulin use: with skilled nursing use Chronic kidney disease stage: stage 3 (moderate) Qualified Code(s): E11.22 - Type 2 diabetes mellitus with diabetic chronic kidney disease; N18.3 - Chronic kidney disease, stage 3 (moderate); Z79.4 - ocean transportation intermediary (current) use of insulin (5) Sacral decubitus ulcer, stage II Current Visit: Yes Status: Chronic Assessment and plan: Chronic stage II secondary to chronic bed rest and DMII Continue monitoring. - Subjective Interval history: Patient seen and examined. She reports continued RUQ abdominal pain that is a constant dull ache that is rated a 8/10 with associated nausea. Patient denies fevers, chills, cp, sob. - Constitutional Vitals: Temp Pulse Resp BP Pulse Ox 97.4 F L 80 17 132/73 100 10/17/16 08:00 10/17/16 08:00 10/17/16 08:00 10/17/16 08:00 10/17/16 08:13 General appearance: Present: A&O X 3, morbidly obese, pleasant, no acute distress - Head Head exam: Present: atraumatic, normocephalic - Eye Eye exam: Present: EOMI, PERRL - ENT ENT exam: Present: mucous membranes dry - Respiratory Respiratory exam: Present: decreased breath sounds, CTAB. Absent: accessory muscle use, rales, rhonchi, wheezes - Cardiovascular Cardiovascular exam: Present: RRR, +S1, +S2. Absent: diastolic murmur, gallop, rubs, systolic murmur - GI/Abdominal GI/Abdominal exam: Present: normal bowel sounds, soft, tenderness (RUQ) - Extremities Exam Extremities exam: Present: pedal edema, tenderness, warm, radial pulses palpable and symetrical - Neurological Exam Neurological exam: Present: alert, oriented X3 - Psychiatric Psychiatric exam: Present: normal affect, normal mood - Skin Skin exam: Present: dry, intact, warm. Absent: erythema, rash Internal Medicine: Result - Labs CBC & Chem 7: 10/17/16 04:50 10/17/16 04:50 Labs: Short CBC 10/17/16 Range/Units 04:50 WBC 11.7 H (4.3-11.1) K/mcL Hgb 7.7 L (11.5-15.4) g/dL Hct 25.2 L (35.3-44.9) % Plt Count 344 (140-400) K/mcL Neutrophils # 9.5 H (1.6-8.9) K/mcL BMP 10/16/16 10/17/16 04:40 04:50 Sodium 141 141 Potassium 4.2 4.3 Chloride 108 107 Carbon Dioxide 25 25 BUN 44 H 41 H Creatinine 1.95 H 1.84 H Glucose 67 L 85 Calcium 8.4 L 8.5 L Liver Function 10/16/16 10/17/16 Range/Units 04:40 04:50 Total Bilirubin 1.8 H 1.3 H (0.2-1.2) mg/dL AST 120 H 80 H (5-34) Units/L ALT 83 H 66 H (0-55) Units/L Alkaline Phosphatase 639 H 659 H (38-126) Units/L Albumin 1.8 L 1.7 L (3.5-5.0) g/dL - ABG Interpretation ABG results: ABG ABG pH 7.32 pH Units (7.32-7.45) 10/07/16 15:04 ABG pCO2 57 mmHg (35-45) H 10/07/16 15:04 ABG pO2 108 mmHg (85-104) H 10/07/16 15:04 ABG O2 Saturation 98 % (95-98) 10/07/16 15:04 PT/INR, D-dimer PT 13.8 Seconds (9.4-12.1) H 10/07/16 10:09 - Impressions Impressions Abdomen Ultrasound 10/16/16 09:30 IMPRESSION: Borderline mild wall thickening of the gallbladder is favored to be due to contraction rather than cholecystitis. Possible trace amount of adjacent pericholecystic fluid of doubtful significance. Correlate clinically for any evidence of mild cholecystitis, which cannot be entirely excluded. There is a moderate amount of gallbladder sludge but no evidence of cholelithiasis. Otherwise negative examination. D/ / Collins Johnson MD / Collins Johnson MD Interpreting Provider: Collins Johnson MD - VTE Documentation of Mechanical Device: Intermittent pneumatic compression device Consult Discharge Plan - Plan Referrals: NO,PCP [Primary Care Provider] - (Patient follows up with [facility] PCP) Prescriptions: Ertapenem [INVanz] 500 mg IVPB DAILY 11 Days <Bobby Murray - Last Filed: 10/17/16 18:07> - Assessment and plan (1) UTI (urinary tract infection) Current Visit: Yes Status: Acute Qualifiers: Urinary tract infection type: acute cystitis Hematuria presence: without hematuria Qualified Code(s): N30.00 - Acute cystitis without hematuria (2) Infection due to ESBL-producing Escherichia coli Current Visit: Yes Status: Acute (3) Bacteremia, escherichia coli Current Visit: Yes Status: Acute (4) Chronic kidney disease, stage III (moderate) Current Visit: Yes Status: Chronic (5) Diabetes mellitus Current Visit: No Status: Chronic Qualifiers: Diabetes mellitus type: type 2 Diabetes mellitus complication status: with kidney complications Diabetes mellitus complication detail: with chronic kidney disease Diabetes mellitus skilled nursing insulin use: with skilled nursing use Chronic kidney disease stage: stage 3 (moderate) Qualified Code(s): E11.22 - Type 2 diabetes mellitus with diabetic chronic kidney disease; N18.3 - Chronic kidney disease, stage 3 (moderate); Z79.4 - longterm (current) use of insulin (6) Acute metabolic encephalopathy Current Visit: Yes Status: Resolved (7) Intrahepatic cholestasis Current Visit: Yes Status: Acute - Constitutional Vitals: Temp Pulse Resp BP Pulse Ox 98.4 F 69 16 118/54 100 10/17/16 15:00 10/17/16 15:00 10/17/16 15:50 10/17/16 15:00 10/17/16 15:50 Internal Medicine: Result - Labs CBC & Chem 7: 10/17/16 04:50 10/17/16 04:50 Labs: Short CBC 10/17/16 Range/Units 04:50 WBC 11.7 H (4.3-11.1) K/mcL Hgb 7.7 L (11.5-15.4) g/dL Hct 25.2 L (35.3-44.9) % Plt Count 344 (140-400) K/mcL Neutrophils # 9.5 H (1.6-8.9) K/mcL BMP 10/17/16 04:50 Sodium 141 Potassium 4.3 Chloride 107 Carbon Dioxide 25 BUN 41 H Creatinine 1.84 H Glucose 85 Calcium 8.5 L Liver Function 10/17/16 Range/Units 04:50 Total Bilirubin 1.3 H (0.2-1.2) mg/dL AST 80 H (5-34) Units/L ALT 66 H (0-55) Units/L Alkaline Phosphatase 659 H (38-126) Units/L Albumin 1.7 L (3.5-5.0) g/dL - ABG Interpretation ABG results: ABG ABG pH 7.32 pH Units (7.32-7.45) 10/07/16 15:04 ABG pCO2 57 mmHg (35-45) H 10/07/16 15:04 ABG pO2 108 mmHg (85-104) H 10/07/16 15:04 ABG O2 Saturation 98 % (95-98) 10/07/16 15:04 PT/INR, D-dimer PT 13.8 Seconds (9.4-12.1) H 10/07/16 10:09 - Impressions Impressions Abdomen MRI 10/17/16 09:36 IMPRESSION: 1. Distended gallbladder with mild wall thickening, gallbladder sludge and pericholecystic fluid. Findings are suspicious for acute cholecystitis. 2. No biliary dilation or choledocholithiasis. 3. Indeterminate 6 mm focal area of wall thickening in the gallbladder fundus, which could represent a polyp. 4. Anasarca with increasing/new bilateral pleural effusions. The findings were sent to the Radiology Results Communication [facility] at 2:09 pm on 10/17/2016to be communicated to a licensed caregiver. D/ / 10/17/2016 14:36:22 Leonela Majano MD / wade Interpreting Provider: Leonela Majano MD - Attending Attestation I examined this patient and my medical decision-making was reviewed with the Resident Physician on 10/17/16. I agree with the documented findings, disposition and treatment plan as described except to the extent set forth below. Ms. Dsouza is currently admitted for ESBL E. coli bacteremia and UTI. She remains high risk due to potential for worsening infectious issues. Ms. Dsouza is still having some abd discomfort. LFTs remain elevated ( transaminases improving but alk phos high). No nausea. No CP or SOB. Feels hungry. Exam Alert. Comfortable resting in bed. Heart reg Lungs diminished Abd obese. Mild epigastric/RUQ discomfort without peritoneal signs. I/P 1. Acute metabolic encephalopathy - improved 2. ESBL E coli UTI and bacteremia - on IV ertapenem. Blood cx repeat are pending. 3. COPD 4. Chronic hypoxic resp failure Further diagnoses and plan as above.
[2016-10-17] MEDS: Budesonide Neb 0.5 MG/2 ML IH SCH ×2 (10:32→22:22)
--- NOTE | 2016-10-17 12:03 | Infectious Disease Consult ---
Date of Encounter: 10/17/16 Time of Encounter: 11:15 Assessment and Plan (1) Sepsis Status: Acute Assessment and plan: The patient had two SIRS criteria with PRADEEP and metabolic encaphalopathy on admission. Likely secondary to bacteremia and UTI. Possible GI cause of persistent leukocytosis. Improved. The patient has been afebrile since 10/14/16. Leukocytosis improved. Blood cultures drawn 10/07/16 were positive 2/2 sets for E. coli ESBL. Repeat blood cultures drawn 10/16/16 are pending x 2 sets. Qualifiers: Sepsis type: Escherichia coli Qualified Code(s): A41.51 - Sepsis due to Escherichia coli [E. coli] (2) Bacteremia Status: Acute Assessment and plan: Causative organism E. coli ESBL. Source likely UTI. Blood cultures drawn 10/07/16 were positive 2/2 sets. Repeat blood cultures not drawn until 10/16/16 and are pending x 2 sets. The patient has two modified Marmolejo's criteria. No endocarditis stigmata on exam. Low index of suspicion for IE. Treated with 8 days of Zosyn before being switched to Meropenem for two days. Currently on Ertapenem since 10/16/16. Await repeat blood cultures. Continue Ertapenem 500mg IV daily (dosed for CrCl ~25). The patient has likely received adequate antibiotic coverage with Zosyn, however, there is a high rate of resistance development during treatment. Agree with switching to a carbapenem for the rest of treatment. Duration of treatment depends on the clinical picture, but would recommend a total of 14 days from the first set of negative blood cultures. If cultures drawn 10/16/16 are negative, treat through 10/30/16. Monitor renal function and dose-adjust antibiotics. Powerglide has been placed. (3) UTI (urinary tract infection) Status: Acute Assessment and plan: Causative organism E. coli ESBL. Mccarty catheter in place was placed upon arrival to the ED. Continue antibiotics as above. Qualifiers: Urinary tract infection type: acute cystitis Hematuria presence: without hematuria Qualified Code(s): N30.00 - Acute cystitis without hematuria (4) ARF (acute renal failure) Status: Acute Assessment and plan: Likely secondary to UTI/Sepsis. Improved. Serum creatinine back to baseline. Nephrology consulted and signed off. Monitor renal function and dose-adjust antibiotics. Qualifiers: Acute renal failure type: unspecified Qualified Code(s): N17.9 - Acute kidney failure, unspecified (5) Acute metabolic encephalopathy Status: Resolved Assessment and plan: Likely secondary to sepsis. Resolved. (6) Elevated LFTs Status: Acute Assessment and plan: Etiology not entirely clear. AST and ALT trending down, but Alk Phos remains elevated. GI consulted. RUQ UTS shows gallbladder thickening and sludge, but no definitive cholecystitis. MRCP ordered per the primary team. (7) Anemia Status: Acute Assessment and plan: EGD/C-scope negative for bleeding. Hgb stable around 7. No evidence of active bleeding. Management per the primary team. 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 coli ESBL bacteremia and UTI History of present illness: Ms. Dsouza is a 71 year old female with a past medical history of asthma, CHF, COPD, CVA, diabetes, hypertension, and CKD. The patient was admitted to the hospital October 07, 2016 for sepsis, UTI, hyperkalemia, acute renal failure. We are consulted October 17, 2016 for further evaluation and treatment recommendations regarding ESBL UTI and bacteremia. Patient 71-year-old female past medical history as stated above. On the day of admission, the patient was noted to have a fever and nausea and vomiting. Upon arrival to the ER, she was afebrile temperature 101.5 and leukocytosis. She also had hyperkalemia and acute kidney injury. Urinalysis revealed findings indicative of a UTI. Chest x-ray was negative. Blood cultures and urine cultures were obtained. Flu swab was negative. The patient was started on empiric antibiotics and was admitted for further evaluation and treatment. She underwent a CT abdomen and pelvis without contrast that showed right base nodular infiltrate, but no intra-abdominal findings. Nephrology was consulted due to the patient's acute kidney injury. Cardiology was consulted due to patient having a positive troponin. GI was consulted due to the patient's unexplained anemia. Since admission, the patient's leukocytosis has resolved at one point, but then went back up to 17.7 thousand on October 15. Her liver function tests went up, but have started trending back down. She underwent an EGD and colonoscopy which were both essentially normal. She has been afebrile since October 14. The patient underwent an abdominal ultrasound that showed mild wall thickening and gallbladder sludge, but no definitive findings of acute cholecystitis. 2 blood cultures were obtained on October 16. Currently, the patient is on IV ertapenem. We've asked to evaluate and make further recommendations. During my exam today, the patient endorses a history as stated above. She reports she had a fever, but no chills or rigors prior to admission. She denies any headache or neck pain. She denies any chest pain, shortness of breath, or cough. She does report that she had some nausea with vomiting and abdominal pain. Currently, she reports pain in the right lower quadrant. She denies any known urinary complaints, but does report chronic urinary incontinence. She denies any dysuria or urinary frequency or hematuria that she is aware of. She denies any diarrhea or constipation. She denies any congestion, earache, or sore throat. She complains of chronic pain to the right lower extremity secondary to a chronic fracture for which she is unable to undergo surgery. Currently, she denies any back pain. 10 point review of systems is complete and is otherwise essentially negative. CC: Bobby Murray, DO Past Med Surg Social Fam HX - Past Medical History Attestation: Yes The following information was validated with the patient. Source: patient, old records reviewed, nursing notes reviewed Medical history: asthma, CHF, COPD, CVA, diabetes, hypertension, renal disease, other (Chronic fracture right LE) Psychiatric history: no psych history - Past Surgical History Surgical History: no surgical history - Social History Smoking Status: Never smoker Smokeless Tobacco Status: No Alcohol use: none Drug use: none Occupational status: unemployed Current living situation: Home - Independent Activity Level: Bed bound Recent Out of Country Travel Within the Last 8 Weeks: No Exposure or Possible Exposure to Illness During Travel: No - Family History Father Living Status: Hx Family Cancer: Yes Mother Living Status: Hx Family Cardiac Disorders: No Hx Family Respiratory Disorders: No Hx Family Cancer: Yes Hx Family GI Disorders: No Hx Family Endocrine Disorder: No Hx Family Neuromuscular Disorders: No Hx Family Neurologic Disorders: No Hx Family HEENT Disorders: No Hx Family Autoimmune Disorders: No Infectious Disease-CN:Meds Cholecalciferol (Vitamin D3) [Vitamin D3] 50,000 unit PO QWEEK 05/30/16 [History ] Gabapentin [Neurontin] 300 mg PO BID 05/30/16 [History] Hydralazine HCl 100 mg PO Q8H 05/30/16 [History] Insulin ASPART [NovoLOG] 1 - 5 unit SQ ACHS 05/30/16 [History] Isosorbide MONOnitrate (24 HR) [Imdur] 30 mg PO DAILY 05/30/16 [History] CloNIDine HCl [Clonidine HCl] 0.2 mg PO BID #60 tab 06/04/16 [Rx] Aspirin 81 mg PO DAILY 07/10/16 [History] Insulin DETEMIR [Levemir] 50 unit SQ QAM 07/10/16 [History] Insulin DETEMIR [Levemir] 55 unit SQ HS 07/10/16 [History] Acetaminophen [Tylenol] 650 mg PO Q6HR PRN #0 tablet 07/20/16 [Rx] Ipratropium/Albuterol Neb [Duoneb] 3 ml IH [id number] inhsol 07/20/16 [Rx] Tramadol HCl [Ultram] 50 mg PO QID PRN #10 tab 07/20/16 [Rx] Atorvastatin Calcium [Lipitor] 80 mg PO DAILY 07/31/16 [History] Budesonide/Formoterol 160/4.5 [Symbicort 160/4.5] 2 puff IH BID 07/31/16 [ History] ClonazePAM [Klonopin] 1 mg PO TID PRN 07/31/16 [History] Clopidogrel [Plavix] 75 mg PO DAILY 07/31/16 [History] Levothyroxine [Synthroid] 25 mcg PO DAILY 07/31/16 [History] Loperamide [Imodium] 2 mg PO Q4HR PRN 07/31/16 [History] Pantoprazole Sodium [Protonix] 40 mg PO DAILY 07/31/16 [History] Saline Nasal [place] [[place] Nasal [place]] 2 spray NS TID 07/31/16 [History] Tiotropium [Spiriva] 18 mcg IH DAILY 07/31/16 [History] Furosemide [Lasix] 40 mg PO BID #0 08/12/16 [Rx] Lisinopril [Zestril] 5 mg PO DAILY #0 tablet 08/12/16 [Rx] Metoprolol Succinate 25 mg PO DAILY #30 tab.er.24h 08/12/16 [Rx] Spironolactone [Aldactone] 12.5 mg PO DAILY tablet 08/12/16 [Rx] Citalopram [CeleXA] 20 mg PO DAILY 10/07/16 [History] Furosemide [Lasix] 20 mg PO QPM 10/07/16 [History] Loratadine [Claritin] 10 mg PO DAILY 10/07/16 [History] Multivitamin [One Daily Multivitamin] 1 tab PO DAILY 10/07/16 [History] Ertapenem [INVanz] 500 mg IVPB DAILY 11 Days 10/09/16 [Rx] Allergies No Known Allergies Allergy (Verified 07/24/16 16:19) All systems: reviewed and no additional remarkable complaints except as stated Exam - Constitutional Vitals: Temp Pulse Resp BP Pulse Ox 98.4 F 79 16 138/69 100 10/17/16 11:37 10/17/16 11:37 10/17/16 11:37 10/17/16 11:37 10/17/16 11:37 General appearance: cooperative, morbidly obese, no acute distress - Head Head exam: Present: atraumatic, normal inspection, normocephalic - Eye Eye exam: Present: EOMI, normal appearance, PERRL Pupils: Present: normal accommodation - ENT ENT exam: Present: mucous membranes moist - Neck Neck exam: Present: normal inspection - Respiratory Respiratory exam: Present: CTAB. Absent: rales, respiratory distress, rhonchi, wheezes - Cardiovascular Cardiovascular exam: Present: RRR, +S1, +S2 - GI/Abdominal GI/Abdominal exam: Present: distended (obese), normal bowel sounds, soft, tenderness (RUQ) - Extremities Exam Extremities exam: Present: pedal edema (1+ BLE), tenderness (lower portion of the RLE - chronic secondary to fracture). Absent: joint swelling Additional comments: Deformity noted to the lower portion of the RLE. - Neurological Exam Neurological exam: Present: alert, oriented X3, no focal deficits - Psychiatric Psychiatric exam: Present: normal affect, normal mood - Skin Skin exam: Present: dry, intact, normal color, warm - Additional findings Additional findings: Powerglide noted to the LUE with transparent dressing C/D/I. Infectious Disease CN: Results - Labs CBC & Chem 7: 10/17/16 04:50 10/17/16 04:50 Serology: Serology 10/11/16 Range/Units 01:44 Stool Occult Blood Negative (Negative) - VTE Documentation of Mechanical Device: Intermittent pneumatic compression device Consult Discharge Plan - Plan Referrals: NO,PCP [Primary Care Provider] - (Patient follows up with [facility] PCP) Prescriptions: Ertapenem [INVanz] 500 mg IVPB DAILY 11 Days
[2016-10-17] MEDS: Acetaminophen 325 MG TABLET PO PRN (19:46)
--- NOTE | 2016-10-17 20:29 | General Surgery Consult Note ---
Date of Encounter: 10/17/16 Time of Encounter: 18:15 History of Present Illness Consult date: 10/17/16 (acute cholecystitis) Requesting physician: Bobby Murray History of present illness: 71-year-old female resident of [facility] transferred to [facility] for further evaluation and treatment of fever, vomiting, and generalized malaise. She was described as lethargic and only partially arousable. Evaluation in the emergency department indicated sepsis of urinary origin, acute renal failure, hyperkalemia. The patient also had stable chronic anemia of chronic renal disease. During the course of this patient's hospitalization, the patient was evaluated by Dr. Perez,who evaluated the patient for acute kidney. Lee superimposed on stage III to stage IV chronic kidney disease. These acute injuries occurred in the setting of gram-negative area tract infection, bacteremia, sepsis and hypotension. The patient was also evaluated by cardiology for elevated troponins in the setting of acute on chronic anemia, acute on chronic kidney disease urinary tract infection and sepsis. His believe she has chronic troponin elevation related to her chronic kidney disease. Prior cardiac evaluation including TTE 06/03/16 showed ejection fraction of 55% with moderate diastolic dysfunction and no significant valvular disease. The cardiology recommendations included continued medical management, using aspirin, statins, and beta blockers. The patient was referred to gastroenterology for further evaluation of anemia after her hemoglobin on admission fell from 7.6-6.8. Patient was evaluated by Dr. Caceres. An EGD demonstrated a mucosal nodule in the esophagus with biopsy showing a benign polypoid gastric mucosa with scattered acute inflammation. Stomach and duodenum were ascribed to be normal by Dr Caceres. The colonoscopy was initially limited by poor mechanical prep at the following day the colonoscopy was completed showing a normal colon. Dr Caceres was again consulted to see the patient , 10/16/16, for elevated LFTs. Past Med Surg Social Fam HX - Past Medical History Medical history: asthma, CHF, COPD, CVA, diabetes, hypertension, renal disease, other (Chronic fracture right LE) Psychiatric history: no psych history - Past Surgical History Surgical History: no surgical history - Social History Smoking Status: Never smoker Smokeless Tobacco Status: No Alcohol use: none Drug use: none - Family History Father Living Status: Hx Family Cancer: Yes Mother Living Status: Hx Family Cardiac Disorders: No Hx Family Respiratory Disorders: No Hx Family Cancer: Yes Hx Family GI Disorders: No Hx Family Endocrine Disorder: No Hx Family Neuromuscular Disorders: No Hx Family Neurologic Disorders: No Hx Family HEENT Disorders: No Hx Family Autoimmune Disorders: No Medications and Allergies Cholecalciferol (Vitamin D3) [Vitamin D3] 50,000 unit PO QWEEK 05/30/16 [History ] Gabapentin [Neurontin] 300 mg PO BID 05/30/16 [History] Hydralazine HCl 100 mg PO Q8H 05/30/16 [History] Insulin ASPART [NovoLOG] 1 - 5 unit SQ ACHS 05/30/16 [History] Isosorbide MONOnitrate (24 HR) [Imdur] 30 mg PO DAILY 05/30/16 [History] CloNIDine HCl [Clonidine HCl] 0.2 mg PO BID #60 tab 06/04/16 [Rx] Aspirin 81 mg PO DAILY 07/10/16 [History] Insulin DETEMIR [Levemir] 50 unit SQ QAM 07/10/16 [History] Insulin DETEMIR [Levemir] 55 unit SQ HS 07/10/16 [History] Acetaminophen [Tylenol] 650 mg PO Q6HR PRN #0 tablet 07/20/16 [Rx] Ipratropium/Albuterol Neb [Duoneb] 3 ml IH [id number] inhsol 07/20/16 [Rx] Tramadol HCl [Ultram] 50 mg PO QID PRN #10 tab 07/20/16 [Rx] Atorvastatin Calcium [Lipitor] 80 mg PO DAILY 07/31/16 [History] Budesonide/Formoterol 160/4.5 [Symbicort 160/4.5] 2 puff IH BID 07/31/16 [ History] ClonazePAM [Klonopin] 1 mg PO TID PRN 07/31/16 [History] Clopidogrel [Plavix] 75 mg PO DAILY 07/31/16 [History] Levothyroxine [Synthroid] 25 mcg PO DAILY 07/31/16 [History] Loperamide [Imodium] 2 mg PO Q4HR PRN 07/31/16 [History] Pantoprazole Sodium [Protonix] 40 mg PO DAILY 07/31/16 [History] Saline Nasal Charlotte [Hamilton Nasal Charlotte] 2 spray NS TID 07/31/16 [History] Tiotropium [Spiriva] 18 mcg IH DAILY 07/31/16 [History] Furosemide [Lasix] 40 mg PO BID #0 08/12/16 [Rx] Lisinopril [Zestril] 5 mg PO DAILY #0 tablet 08/12/16 [Rx] Metoprolol Succinate 25 mg PO DAILY #30 tab.er.24h 08/12/16 [Rx] Spironolactone [Aldactone] 12.5 mg PO DAILY tablet 08/12/16 [Rx] Citalopram [CeleXA] 20 mg PO DAILY 10/07/16 [History] Furosemide [Lasix] 20 mg PO QPM 10/07/16 [History] Loratadine [Claritin] 10 mg PO DAILY 10/07/16 [History] Multivitamin [One Daily Multivitamin] 1 tab PO DAILY 10/07/16 [History] Ertapenem [INVanz] 500 mg IVPB DAILY 11 Days 10/09/16 [Rx] Allergies No Known Allergies Allergy (Verified 07/24/16 16:19) Review of Systems All systems PM: A 10-system review of systems was performed and is negative for pertinent findings except as documented above in the HPI. General Surgery Exam Initial Vital Signs Temp Pulse Resp BP Pulse Ox 101.5 F H 75 18 124/32 100 10/07/16 09:46 10/07/16 09:46 10/07/16 09:46 10/07/16 09:46 10/07/16 09:46 Exam Initial Vital Signs Temp Pulse Resp BP Pulse Ox 101.5 F H 75 18 124/32 100 10/07/16 09:46 10/07/16 09:46 10/07/16 09:46 10/07/16 09:46 10/07/16 09:46 Results - Labs 10/17/16 04:50 10/17/16 04:50 Abnormal lab results WBC 11.7 K/mcL (4.3-11.1) H 10/17/16 04:50 RBC 2.62 M/mcL (3.82-4.97) L 10/17/16 04:50 Hgb 7.7 g/dL (11.5-15.4) L 10/17/16 04:50 Hct 25.2 % (35.3-44.9) L 10/17/16 04:50 MCHC 30.6 g/dL (31.6-35.5) L 10/17/16 04:50 RDW 16.2 % (11.5-14.5) H 10/17/16 04:50 MPV 9.3 fL (9.4-12.4) L 10/17/16 04:50 Neutrophils # 9.5 K/mcL (1.6-8.9) H 10/17/16 04:50 PT 13.8 Seconds (9.4-12.1) H 10/07/16 10:09 ABG pCO2 57 mmHg (35-45) H 10/07/16 15:04 ABG pO2 108 mmHg (85-104) H 10/07/16 15:04 ABG HCO3 29.4 mEQ/L (21-27) H 10/07/16 15:04 ABG Total CO2 31.1 mEq/L (20-26) H 10/07/16 15:04 BUN 41 mg/dL (7-20) H 10/17/16 04:50 Creatinine 1.84 mg/dL (0.57-1.11) H 10/17/16 04:50 Est GFR ( Amer) 33 (> 60) L 10/17/16 04:50 Est GFR (Non-Af Amer) 27 (> 60) L 10/17/16 04:50 POC Glucose 97 (58-89) H 10/17/16 16:54 Calculated Osmolality 301 (280-300) H 10/17/16 04:50 Calcium 8.5 mg/dL (8.6-10.8) L 10/17/16 04:50 Phosphorus 5.7 mg/dL (2.3-4.7) H 10/07/16 10:09 Iron 16 mcg/dL (50-170) L 10/08/16 15:15 % Saturation 12 % (15-50) L 10/08/16 15:15 Transferrin 99 mg/dL (180-382) L 10/08/16 15:15 Ferritin 651 ng/ml (5-204) H 10/08/16 15:15 Total Bilirubin 1.3 mg/dL (0.2-1.2) H 10/17/16 04:50 AST 80 Units/L (5-34) H 10/17/16 04:50 ALT 66 Units/L (0-55) H 10/17/16 04:50 Alkaline Phosphatase 659 Units/L (38-126) H 10/17/16 04:50 Troponin I 0.94 ng/mL (0-0.03) H* 10/08/16 11:12 Albumin 1.7 g/dL (3.5-5.0) L 10/17/16 04:50 Globulin 5.0 g/dL (2.4-3.5) H 10/17/16 04:50 Albumin/Globulin Ratio 0.3 (1.1-2.2) L 10/17/16 04:50 Urine Clarity Turbid (Clear) A 10/07/16 10:32 Urine Protein 100 mg/dL (Neg-Trace) H 10/07/16 10:32 Urine Blood Trace (Negative) H 10/07/16 10:32 Ur Leukocyte Esterase Large (Negative) H 10/07/16 10:32 Urine Microscopic RBC 5-15 per hpf (0-3) H 10/07/16 10:32 Urine Microscopic WBC TNTC per hpf (0-3) H 10/07/16 10:32 Ur Squamous Epith Cells Many per lpf (None-Few) H 10/07/16 10:32 Urine Bacteria Many per hpf (None-Few) H 10/07/16 10:32 Ur Culture Indicated? YES (NO) A 10/07/16 10:32 Enterobacteriac sp PCR DETECTED (Not Detect) A 10/07/16 10:21 E. coli (PCR) DETECTED (Not Detect) A 10/07/16 10:21 Diabetes panel 10/17/16 Range/Units 04:50 Sodium 141 (136-145) mEq/L Potassium 4.3 (3.5-4.5) mEq/L Chloride 107 (98-109) mEq/L Carbon Dioxide 25 (19-29) mEq/L BUN 41 H (7-20) mg/dL Creatinine 1.84 H (0.57-1.11) mg/dL Glucose 85 (70-99) mg/dL Calcium 8.5 L (8.6-10.8) mg/dL AST 80 H (5-34) Units/L ALT 66 H (0-55) Units/L Alkaline Phosphatase 659 H (38-126) Units/L Albumin 1.7 L (3.5-5.0) g/dL Calcium panel 10/17/16 Range/Units 04:50 Calcium 8.5 L (8.6-10.8) mg/dL Albumin 1.7 L (3.5-5.0) g/dL Pituitary panel 10/17/16 Range/Units 04:50 Sodium 141 (136-145) mEq/L Potassium 4.3 (3.5-4.5) mEq/L Chloride 107 (98-109) mEq/L Carbon Dioxide 25 (19-29) mEq/L BUN 41 H (7-20) mg/dL Creatinine 1.84 H (0.57-1.11) mg/dL Glucose 85 (70-99) mg/dL Calcium 8.5 L (8.6-10.8) mg/dL Adrenal panel 10/17/16 Range/Units 04:50 Sodium 141 (136-145) mEq/L Potassium 4.3 (3.5-4.5) mEq/L Chloride 107 (98-109) mEq/L Carbon Dioxide 25 (19-29) mEq/L BUN 41 H (7-20) mg/dL Creatinine 1.84 H (0.57-1.11) mg/dL Glucose 85 (70-99) mg/dL Calcium 8.5 L (8.6-10.8) mg/dL Total Bilirubin 1.3 H (0.2-1.2) mg/dL AST 80 H (5-34) Units/L ALT 66 H (0-55) Units/L Alkaline Phosphatase 659 H (38-126) Units/L Albumin 1.7 L (3.5-5.0) g/dL All other labs normal. Consult Discharge Plan - Plan Referrals: NO,PCP [Primary Care Provider] - (Patient follows up with ECF PCP) Prescriptions: Ertapenem [INVanz] 500 mg IVPB DAILY 11 Days
[2016-10-18] MEDS: Ipratropium/Albuterol Neb 3 ML IH SCH ×4 (04:40→22:21)
[2016-10-18] MEDS: Insulin LISPRO 300 UNITS/3 ML VIAL SQ SCH ×4 (04:45→22:48)
[2016-10-18] MEDS: Levothyroxine 25 MCG TABLET PO SCH (05:56)
[2016-10-18 07:00] LABS: Basophils # 0.1 K/mcL (0.0-0.2); Basophils % 0.7 %; Eosinophils # 0.4 K/mcL (0.0-0.6); Eosinophils % 3.5 %; Hemoglobin 7.7 g/dL (11.5-15.4); Immature Granulocytes % 0.6 % (0-4); Lymphocytes # 1.4 K/mcL (0.6-4.6); Lymphocytes % 12.7 %; Mean Corpuscular HGB Conc 30.8 g/dL (31.6-35.5); Mean Corpuscular Hemoglobin 29.7 pg (28.0-33.3); Mean Corpuscular Volume 96.5 fL (83.0-100.0); Mean Platelet Volume 9.2 fL (9.4-12.4); Monocytes # 0.7 K/mcL (0.0-1.3); Monocytes % 6.4 %; Neutrophils # 8.1 K/mcL (1.6-8.9); Platelet Count 393 K/mcL (140-400); Red Blood Count 2.59 M/mcL (3.82-4.97); Red Cell Distribution Width 16.3 % (11.5-14.5); Segmented Neutrophils % 76.1 %
[2016-10-18 07:16] LABS: Albumin 1.7 g/dL (3.5-5.0); Albumin/Globulin Ratio 0.3 (1.1-2.2); Bilirubin,Total 0.9 mg/dL (0.2-1.2); Calcium 8.3 mg/dL (8.6-10.8); Globulin 5.1 g/dL (2.4-3.5); Potassium 4.4 mEq/L (3.5-4.5); Total Protein 6.8 g/dL (6.0-8.3)
[2016-10-18 07:18] LABS: Magnesium 1.9 mg/dL (1.6-2.6); Phosphorous 3.6 mg/dL (2.3-4.7)
[2016-10-18] MEDS: Gabapentin 300 MG CAPSULE PO SCH (09:01)
[2016-10-18] MEDS: Insulin DETEMIR 100 UNIT/ML X5UNITS SQ SCH ×2 (09:01→22:54)
[2016-10-18] MEDS: cloNIDine HCl 0.1 MG TABLET PO SCH (09:01)
[2016-10-18] MEDS: Metoprolol XL (24 HR) Succ 25 MG TAB.ER.24H PO SCH (09:01)
[2016-10-18] MEDS: Aspirin 81 MG TAB.CHEW PO SCH (09:01)
[2016-10-18] MEDS: Loratadine 10 MG TABLET PO SCH (09:01)
[2016-10-18] MEDS: Isosorbide MONOnitrate (24 HR) 30 MG TAB.ER.24H PO SCH (09:01)
[2016-10-18] MEDS: hydrALAZINE 25 MG TABLET PO SCH ×2 (09:02→22:55)
[2016-10-18] MEDS: Multivit/Ca/Min/Fe/FA 1 TAB TABLET PO SCH (09:02)
[2016-10-18] MEDS: Budesonide Neb 0.5 MG/2 ML IH SCH ×2 (10:35→22:21)
--- NOTE | 2016-10-18 10:53 | Infectious Disease Progress No ---
Date of Encounter: 10/18/16 Time of Encounter: 10:00 - Assessment and Plan (1) Sepsis Current Visit: Yes Status: Acute The patient had two SIRS criteria with PRADEEP and metabolic encaphalopathy on admission. Likely secondary to bacteremia and UTI. Improved. The patient has been afebrile since 10/14/16. Leukocytosis resolved. Blood cultures drawn 10/07/16 were positive 2/2 sets for E. coli ESBL. Repeat blood cultures drawn 10/16/16 are NGTD x 2 sets. Qualifiers: Sepsis type: Escherichia coli Qualified Code(s): A41.51 - Sepsis due to Escherichia coli [E. coli] (2) Bacteremia Current Visit: Yes Status: Acute Causative organism E. coli ESBL. Source likely UTI. Blood cultures drawn 10/07/16 were positive 2/2 sets. Repeat blood cultures not drawn until 10/16/16 and are NGTD x 2 sets. The patient has two modified Marmolejo's criteria. No endocarditis stigmata on exam. Low index of suspicion for IE. Treated with 8 days of Zosyn before being switched to Meropenem for two days. Currently on Ertapenem since 10/16/16. Continue Ertapenem 500mg IV daily (dosed for CrCl ~25). The patient has likely received adequate antibiotic coverage with Zosyn, however, there is a high rate of resistance development during treatment. Agree with switching to a carbapenem for the rest of treatment. Duration of treatment depends on the clinical picture, but would recommend a total of 14 days from the first set of negative blood cultures. Treat through . Monitor renal function and dose-adjust antibiotics. Powerglide has been placed. (3) UTI (urinary tract infection) Current Visit: Yes Status: Acute Causative organism E. coli ESBL. Mccarty catheter in place was placed upon arrival to the ED. Continue antibiotics as above. Qualifiers: Urinary tract infection type: acute cystitis Hematuria presence: without hematuria Qualified Code(s): N30.00 - Acute cystitis without hematuria (4) ARF (acute renal failure) Current Visit: Yes Status: Acute Likely secondary to UTI/Sepsis. Improved. Serum creatinine back to baseline. Nephrology consulted and signed off. Monitor renal function and dose-adjust antibiotics. Qualifiers: Acute renal failure type: unspecified Qualified Code(s): N17.9 - Acute kidney failure, unspecified (5) Acute metabolic encephalopathy Current Visit: Yes Status: Resolved Likely secondary to sepsis. Resolved. (6) Elevated LFTs Current Visit: Yes Status: Acute Etiology not entirely clear, but trending down. GI consulted. RUQ UTS shows gallbladder thickening and sludge, but no definitive cholecystitis. MRCP showed possible acute cholecystitis. General surgery consulted. No surgical intervention needed at this time. Continue to trend. (7) Anemia Current Visit: Yes Status: Acute EGD/C-scope negative for bleeding. Hgb stable around 7. No evidence of active bleeding. Management per the primary team. 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 No acute events noted overnight. Patient resting quietly in bed with eyes closed, awakens easily. States she feels better today. Denies fever, chills, or rigors. Denies chest pain, shortness of breath, or cough. Denies vomiting or diarrhea, but does report some nausea after eating breakfast this morning. Continues to complain of right sided abdominal pain. Denies oral thrush or new skin lesions. Infect Dis PN-Objective Data - Labs CBC & Chem 7: 10/18/16 06:23 10/18/16 06:23 Labs: Laboratory Results - last 24 hr 10/17/16 10/17/16 10/18/16 16:54 21:18 06:23 WBC 10.7 RBC 2.59 L Hgb 7.7 L Hct 25.0 L MCV 96.5 MCH 29.7 MCHC 30.8 L RDW 16.3 H Plt Count 393 MPV 9.2 L Immature Gran % 0.6 Seg Neutrophils % 76.1 Lymphocytes % 12.7 Monocytes % 6.4 Eosinophils % 3.5 Basophils % 0.7 Neutrophils # 8.1 Lymphocytes # 1.4 Monocytes # 0.7 Eosinophils # 0.4 Basophils # 0.1 Sodium Potassium Chloride Carbon Dioxide BUN Creatinine Est GFR ( Amer) Est GFR (Non-Af Amer) BUN/Creatinine Ratio Glucose POC Glucose 97 H 116 H Calculated Osmolality Calcium Phosphorus Magnesium Total Bilirubin AST ALT Alkaline Phosphatase Serum Total Protein Albumin Globulin Albumin/Globulin Ratio Triglycerides 10/18/16 10/18/16 06:23 06:23 WBC RBC Hgb Hct MCV MCH MCHC RDW Plt Count MPV Immature Gran % Seg Neutrophils % Lymphocytes % Monocytes % Eosinophils % Basophils % Neutrophils # Lymphocytes # Monocytes # Eosinophils # Basophils # Sodium 140 Potassium 4.4 Chloride 108 Carbon Dioxide 25 BUN 40 H Creatinine 1.70 H Est GFR ( Amer) 36 L Est GFR (Non-Af Amer) 30 L BUN/Creatinine Ratio 24 Glucose 78 POC Glucose Calculated Osmolality 299 Calcium 8.3 L Phosphorus 3.6 Magnesium 1.9 Total Bilirubin 0.9 AST 47 H ALT 47 Alkaline Phosphatase 635 H Serum Total Protein 6.8 Albumin 1.7 L Globulin 5.1 H Albumin/Globulin Ratio 0.3 L Triglycerides 108 Cultures: Cultures 10/16/16 18:32 Blood Culture - Preliminary Peripheral Venipuncture No growth. 10/16/16 18:32 Blood Culture - Preliminary Peripheral Venipuncture No growth. Serology 10/11/16 Range/Units 01:44 Stool Occult Blood Negative (Negative) - Impressions Impressions Abdomen MRI 10/17/16 09:36 IMPRESSION: 1. Distended gallbladder with mild wall thickening, gallbladder sludge and pericholecystic fluid. Findings are suspicious for acute cholecystitis. 2. No biliary dilation or choledocholithiasis. 3. Indeterminate 6 mm focal area of wall thickening in the gallbladder fundus, which could represent a polyp. 4. Anasarca with increasing/new bilateral pleural effusions. The findings were sent to the Radiology Results Communication [facility] at 2:09 pm on 10/17/2016to be communicated to a licensed caregiver. D/ / 10/17/2016 14:36:22 Leonela Majano MD / [employer]old Interpreting Provider: Leonela Majano MD Exam - Constitutional Vitals: Temp Pulse Resp BP Pulse Ox 98.1 F 75 16 176/83 100 10/18/16 07:10 10/18/16 07:10 10/18/16 10:35 10/18/16 07:10 10/18/16 10:35 General appearance: cooperative, morbidly obese, no acute distress - Head Head exam: Present: atraumatic, normal inspection, normocephalic - Eye Eye exam: Present: EOMI, normal appearance, PERRL Pupils: Present: normal accommodation - ENT ENT exam: Present: mucous membranes moist - Neck Neck exam: Present: normal inspection - Respiratory Respiratory exam: Present: CTAB. Absent: rales, respiratory distress, rhonchi, wheezes - Cardiovascular Cardiovascular exam: Present: RRR, +S1, +S2 - GI/Abdominal GI/Abdominal exam: Present: distended (obese), normal bowel sounds, soft, tenderness (Generlized, worse in the RUQ and epigastric region.) Additional comments: Mccarty catheter patent draining dark yellow urine. - Extremities Exam Extremities exam: Present: pedal edema (2+ BLE), tenderness (Right tib/fin). Absent: joint swelling - Neurological Exam Neurological exam: Present: alert, oriented X3, no focal deficits - Psychiatric Psychiatric exam: Present: normal affect, normal mood - Skin Skin exam: Present: dry, intact, normal color, warm - Additional findings Additional findings: Powerglide EPIV noted to the LUE with transparent dressing C/D/I. - VTE Documentation of Mechanical Device: Intermittent pneumatic compression device Consult Discharge Plan - Plan Referrals: NO,PCP [Primary Care Provider] - (Patient follows up with ECF PCP) Prescriptions: Ertapenem [INVanz] 500 mg IVPB DAILY 11 Days
--- NOTE | 2016-10-18 16:04 | Internal Med Progress Note ---
<Jay Oglesby - Last Filed: 10/18/16 18:44> Date of Encounter: 10/18/16 Time of Encounter: 16:00 - Assessment and plan (1) Acute metabolic encephalopathy Current Visit: Yes Status: Resolved Assessment and plan: Likely secondary to ESBL bacteremia and UTI. Patient has been on antibiotics since 10/07/2016. Mental status has improved. Blood cultures drawn on 2016 demonstrated no growth. Plan for transfer back to [facility] tomorrow to complete antibiotic therapy. Plan: -Continue ertapenem -ID has been consulted, recommends continuing ertapenem coverage through if cultures from 10/16/16 are negative. (2) UTI (urinary tract infection) Current Visit: Yes Status: Acute Assessment and plan: ESBL UTI associated with ESBL bacteremia. Per above plan Qualifiers: Urinary tract infection type: acute cystitis Hematuria presence: without hematuria Qualified Code(s): N30.00 - Acute cystitis without hematuria (3) Bacteremia Current Visit: Yes Status: Acute Assessment and plan: ESBL bacteremia, patient admitted with sepsis found to have ESBL UTI and blood cultures X2 from 10/07/2016 demonstrate ESBL. Plan: - IV ertapenem until 10/30/2016. (4) COPD (chronic obstructive pulmonary disease) Current Visit: No Status: Chronic Assessment and plan: History of COPD, On 3L O2 outpatient. Patient at baseline oxygen requirements. Plan: -Continue nasal cannula oxygen at 3 L -Continue duoneb treatments. Qualifiers: COPD type: chronic bronchitis Chronic bronchitis type: mucopurulent Qualified Code(s): J41.1 - Mucopurulent chronic bronchitis (5) Type 2 diabetes mellitus with diabetic chronic kidney disease Current Visit: No Status: Acute Assessment and plan: Blood sugars well controlled. Plan: -Continue levemir 28 units at night and 25 units in morning. -Continue sliding scale -Continue diabetic diet. Qualifiers: Diabetes mellitus intermediate insulin use: with intermediate use Chronic kidney disease stage: stage 4 (severe) Qualified Code(s): E11.22 - Type 2 diabetes mellitus with diabetic chronic kidney disease; N18.4 - Chronic kidney disease, stage 4 (severe); Z79.4 - intermediate project manager (current) use of insulin (6) Sacral decubitus ulcer, stage II Current Visit: Yes Status: Chronic Assessment and plan: Chronic stage II secondary to chronic bed rest and DMII Continue monitoring. (7) Cholestasis Current Visit: Yes Status: Acute Assessment and plan: Right upper quadrant ultrasound demonstrates gallbladder thickening with sludge patient underwent workup with elevated transaminitis and elevated alkaline phosphate. Patient was seen and evaluated by general surgery who recommended continue supportive care, continue serial LFTs and abdominal examinations, resume diet. -Dr Caceres was again consulted to see the patient, 10/16/16, for elevated LFTs. - Imaging: Abdominal MRI was completed, 10/17/16, imaging was limited by patient motion but the MRI demonstrated a distended gallbladder with mild wall thickening measuring up to 4 mm. T1 hyperintense material within the gallbladder suggestive of sludge without definitive cholelithiasis was identified. A 6 mm focal area of wall thickening within the gallbladder fundus suggestive of polyp was also described. Pericholecystic fluid was described as increased when compared to the prior CT, however, this fluid may be due to the observed anasarca and fluid overload evident on other radiographs. An ultrasound of the gallbladder completed the previous day demonstrated borderline wall thickening of the gallbladder which was thought to be due to contraction or incomplete filling rather and cholecystitis. At the time of the ultrasound trace adjacent pericholecystic fluid was deemed to be of doubtful significance. The gallbladder ultrasound gallbladder demonstrated "sludge" no evidence of cholelithiasis. - Subjective Interval history: Ms. Dsouza has been seen and evaluated at patient bedside this am. She is alert awake oriented and interactive. She denies any significant pain or discomfort. She denies any fevers, chills, nausea or vomiting. She does describe some discomfort in her epigastric reason exacerbated with swallowing. She said she has avoided significant by mouth intake. She denies any other troubles at this time. - Constitutional Vitals: Temp Pulse Resp BP Pulse Ox 97.2 F L 86 16 185/73 99 10/18/16 11:38 10/18/16 11:38 10/18/16 11:38 10/18/16 11:38 10/18/16 11:38 General appearance: Present: cooperative, morbidly obese, pleasant, no acute distress - Head Head exam: Present: atraumatic, normocephalic - Eye Eye exam: Present: PERRL, conjuntiva pink, sclera anicteric Pupils: Present: PERRL - ENT ENT exam: Present: mucous membranes moist - Neck Neck exam general surgery: Present: supple, trachea midline. Absent: lymphadenopathy - Respiratory Respiratory exam: Present: CTAB. Absent: accessory muscle use, rales, rhonchi, wheezes - Cardiovascular Cardiovascular exam: Present: RRR, +S1, +S2. Absent: diastolic murmur, gallop, rubs, systolic murmur - GI/Abdominal GI/Abdominal exam: Present: normal bowel sounds, soft, no peritoneal signs. Absent: distended, tenderness Additional comments: obese abdomen. - Extremities Exam Extremities exam: Present: warm, radial pulses palpable and symetrical - Neurological Exam Neurological exam: Present: alert, no focal deficits. Absent: facial droop, speech deficit Internal Medicine: Result - Labs CBC & Chem 7: 10/18/16 06:23 10/18/16 06:23 Labs: Short CBC 10/18/16 Range/Units 06:23 WBC 10.7 (4.3-11.1) K/mcL Hgb 7.7 L (11.5-15.4) g/dL Hct 25.0 L (35.3-44.9) % Plt Count 393 (140-400) K/mcL Neutrophils # 8.1 (1.6-8.9) K/mcL BMP 10/18/16 06:23 Sodium 140 Potassium 4.4 Chloride 108 Carbon Dioxide 25 BUN 40 H Creatinine 1.70 H Glucose 78 Calcium 8.3 L Liver Function 10/18/16 Range/Units 06:23 Total Bilirubin 0.9 (0.2-1.2) mg/dL AST 47 H (5-34) Units/L ALT 47 (0-55) Units/L Alkaline Phosphatase 635 H (38-126) Units/L Albumin 1.7 L (3.5-5.0) g/dL - ABG Interpretation ABG results: ABG ABG pH 7.32 pH Units (7.32-7.45) 10/07/16 15:04 ABG pCO2 57 mmHg (35-45) H 10/07/16 15:04 ABG pO2 108 mmHg (85-104) H 10/07/16 15:04 ABG O2 Saturation 98 % (95-98) 10/07/16 15:04 PT/INR, D-dimer PT 13.8 Seconds (9.4-12.1) H 10/07/16 10:09 - VTE Documentation of Mechanical Device: Intermittent pneumatic compression device Consult Discharge Plan - Plan Referrals: NO,PCP [Primary Care Provider] - (Patient follows up with [facility] PCP) Prescriptions: Ertapenem [INVanz] 500 mg IVPB DAILY 11 Days Ertapenem [INVanz] 500 mg IVPB DAILY #10 vial <Bobby Murray - Last Filed: 10/18/16 19:28> - Assessment and plan (1) UTI (urinary tract infection) Current Visit: Yes Status: Acute Qualifiers: Urinary tract infection type: acute cystitis Hematuria presence: without hematuria Qualified Code(s): N30.00 - Acute cystitis without hematuria (2) Infection due to ESBL-producing Escherichia coli Current Visit: Yes Status: Acute (3) Bacteremia, escherichia coli Current Visit: Yes Status: Acute (4) Chronic kidney disease, stage III (moderate) Current Visit: Yes Status: Chronic (5) Diabetes mellitus Current Visit: No Status: Chronic Qualifiers: Diabetes mellitus type: type 2 Diabetes mellitus complication status: with kidney complications Diabetes mellitus complication detail: with chronic kidney disease Diabetes mellitus 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: with intermediate use Chronic kidney disease stage: stage 3 (moderate) Qualified Code(s): E11.22 - Type 2 diabetes mellitus with diabetic chronic kidney disease; N18.3 - Chronic kidney disease, stage 3 (moderate); Z79.4 - FDC (current) use of insulin (6) Acute metabolic encephalopathy Current Visit: Yes Status: Resolved (7) Intrahepatic cholestasis Current Visit: Yes Status: Acute (8) Sacral decubitus ulcer, stage II Current Visit: Yes Status: Chronic (9) Morbid obesity with BMI of 45.0-49.9, adult Current Visit: No Status: Chronic - Constitutional Vitals: Temp Pulse Resp BP Pulse Ox 97.8 F 82 16 182/71 99 10/18/16 16:55 10/18/16 16:55 10/18/16 16:55 10/18/16 16:55 10/18/16 16:55 Internal Medicine: Result - Labs CBC & Chem 7: 10/18/16 06:23 10/18/16 06:23 Labs: Short CBC 10/18/16 Range/Units 06:23 WBC 10.7 (4.3-11.1) K/mcL Hgb 7.7 L (11.5-15.4) g/dL Hct 25.0 L (35.3-44.9) % Plt Count 393 (140-400) K/mcL Neutrophils # 8.1 (1.6-8.9) K/mcL BMP 10/18/16 06:23 Sodium 140 Potassium 4.4 Chloride 108 Carbon Dioxide 25 BUN 40 H Creatinine 1.70 H Glucose 78 Calcium 8.3 L Liver Function 10/18/16 Range/Units 06:23 Total Bilirubin 0.9 (0.2-1.2) mg/dL AST 47 H (5-34) Units/L ALT 47 (0-55) Units/L Alkaline Phosphatase 635 H (38-126) Units/L Albumin 1.7 L (3.5-5.0) g/dL - ABG Interpretation ABG results: ABG ABG pH 7.32 pH Units (7.32-7.45) 10/07/16 15:04 ABG pCO2 57 mmHg (35-45) H 10/07/16 15:04 ABG pO2 108 mmHg (85-104) H 10/07/16 15:04 ABG O2 Saturation 98 % (95-98) 10/07/16 15:04 PT/INR, D-dimer PT 13.8 Seconds (9.4-12.1) H 10/07/16 10:09 - Impressions Impressions Abdomen MRI 10/17/16 09:36 IMPRESSION: 1. Distended gallbladder with mild wall thickening, gallbladder sludge and pericholecystic fluid. Findings are suspicious for acute cholecystitis. 2. No biliary dilation or choledocholithiasis. 3. Indeterminate 6 mm focal area of wall thickening in the gallbladder fundus, which could represent a polyp. 4. Anasarca with increasing/new bilateral pleural effusions. The findings were sent to the Radiology Results Communication [facility] at 2:09 pm on 10/17/2016to be communicated to a licensed caregiver. D/ / 10/17/2016 14:36:22 Leonela Majano MD / [email or web address] Interpreting Provider: Leonela Majano MD - Attending Attestation I examined this patient and my medical decision-making was reviewed with the Resident Physician on 10/18/16. I agree with the documented findings, disposition and treatment plan as described except to the extent set forth below. Ms. Dsouza is currently admitted for acute metabolic encephalopathy and ESBL E coli UTI and bacteremia. She remains high risk due to potential for worsening infectious issues and IV abx. Ms. Dsouza is tolerating IV abx. She denies pain or other issue. No N/V. Tolerating PO diet. No new GI issues. Exam Alert. Comfortable Heart reg No wheeze Abd soft - discomfort about the same I/P 1. ESBL E coli UTI and bacteremia 2. Abd pain 3. Cholestasis Further diagnoses and plan as above.
[2016-10-19] MEDS: Ipratropium/Albuterol Neb 3 ML IH SCH ×4 (04:37→23:04)
[2016-10-19] MEDS: Levothyroxine 25 MCG TABLET PO SCH (06:38)
[2016-10-19] MEDS: Insulin DETEMIR 100 UNIT/ML X5UNITS SQ SCH ×2 (07:58→21:30)
[2016-10-19] MEDS: Aspirin 81 MG TAB.CHEW PO SCH (07:59)
[2016-10-19] MEDS: Multivit/Ca/Min/Fe/FA 1 TAB TABLET PO SCH (07:59)
[2016-10-19] MEDS: Isosorbide MONOnitrate (24 HR) 30 MG TAB.ER.24H PO SCH (07:59)
[2016-10-19] MEDS: hydrALAZINE 25 MG TABLET PO SCH ×2 (07:59→21:27)
[2016-10-19] MEDS: Gabapentin 300 MG CAPSULE PO SCH (07:59)
[2016-10-19] MEDS: cloNIDine HCl 0.1 MG TABLET PO SCH (07:59)
[2016-10-19] MEDS: Metoprolol XL (24 HR) Succ 25 MG TAB.ER.24H PO SCH (08:00)
[2016-10-19] MEDS: Loratadine 10 MG TABLET PO SCH (08:00)
[2016-10-19] MEDS: Insulin LISPRO 300 UNITS/3 ML VIAL SQ SCH ×4 (08:01→21:26)
[2016-10-19 08:53] LABS: Basophils % 0.4 %; Eosinophils # 0.1 K/mcL (0.0-0.6); Eosinophils % 1.6 %; Hematocrit 25.7 % (35.3-44.9); Hemoglobin 7.6 g/dL (11.5-15.4); Immature Granulocytes % 0.4 % (0-4); Lymphocytes # 1.3 K/mcL (0.6-4.6); Lymphocytes % 14.4 %; Mean Corpuscular HGB Conc 29.6 g/dL (31.6-35.5); Mean Corpuscular Hemoglobin 28.7 pg (28.0-33.3); Monocytes # 0.6 K/mcL (0.0-1.3); Monocytes % 6.9 %; Neutrophils # 6.8 K/mcL (1.6-8.9); Platelet Count 398 K/mcL (140-400); Red Blood Count 2.65 M/mcL (3.82-4.97); Red Cell Distribution Width 16.8 % (11.5-14.5); Segmented Neutrophils % 76.3 %
[2016-10-19 09:33] LABS: Albumin/Globulin Ratio 0.4 (1.1-2.2); Calcium 8.4 mg/dL (8.6-10.8); Potassium 4.4 mEq/L (3.5-4.5); Total Protein 6.8 g/dL (6.0-8.3)
[2016-10-19 09:34] LABS: Albumin 1.8 g/dL (3.5-5.0); Bilirubin,Total 2.4 mg/dL (0.2-1.2)
[2016-10-19] MEDS: Budesonide Neb 0.5 MG/2 ML IH SCH ×2 (10:51→23:04)
[2016-10-19 12:45] LABS: Albumin/Globulin Ratio 0.3 (1.1-2.2); Bilirubin,Total 2.4 mg/dL (0.2-1.2); Calcium 8.2 mg/dL (8.6-10.8); Globulin 5.1 g/dL (2.4-3.5); Potassium 4.9 mEq/L (3.5-4.5); Total Protein 6.8 g/dL (6.0-8.3)
[2016-10-19 12:46] LABS: Albumin 1.7 g/dL (3.5-5.0)
--- NOTE | 2016-10-19 14:06 | Internal Med Progress Note ---
<Fadia Oglesby - Last Filed: 10/19/16 15:23> Date of Encounter: 10/19/16 Time of Encounter: 10:00 - Assessment and plan (1) Acute metabolic encephalopathy Current Visit: Yes Status: Resolved Assessment and plan: Likely secondary to ESBL bacteremia and UTI. Patient has been on antibiotics since 10/07/2016. Mental status has improved. Blood cultures drawn on 2016 demonstrated no growth. Plan for transfer back to [facility] to complete antibiotic therapy. Alk phos doubled today to 1319. Ertapenem does cause elevation of LFTs and alk phos 10% of the time. Since according to US and MRI this is unlikely secondary to her gallbladder/acute cholecystitis, it is possible that the ertapenem is a cause. Discussed alternative treatment with cefoxitin. Per ID we need to continue with ertapenem as alternative therapies will fail as outpatient. Will continue to monitor alk phos. If the patient develops fever or acute abdominal pain she will then need an ERCP. Plan: -Continue ertapenem -ID has been consulted, recommends continuing abxcoverage through 10/30/16 if cultures from 10/16/16 are negative. -Recheck alk phos in AM, -Monitor sx closely, if becomes febrile or develops acute abd pain will need ERCP (2) UTI (urinary tract infection) Current Visit: Yes Status: Acute Assessment and plan: ESBL UTI associated with ESBL bacteremia. Per above plan Qualifiers: Urinary tract infection type: acute cystitis Hematuria presence: without hematuria Qualified Code(s): N30.00 - Acute cystitis without hematuria (3) COPD (chronic obstructive pulmonary disease) Current Visit: No Status: Acute Assessment and plan: History of COPD, On 3L O2 outpatient. Plan: -Titrate O2 to keep SPO2 >90%. -Continue duoneb treatments. Qualifiers: COPD type: unspecified COPD Qualified Code(s): J44.9 - Chronic obstructive pulmonary disease, unspecified (4) Type 2 diabetes mellitus with diabetic chronic kidney disease Current Visit: Yes Status: Chronic Assessment and plan: Blood sugars well controlled. Plan: -Continue levemir 28 units at night and 25 units in morning. -Continue sliding scale -Continue diabetic diet. Qualifiers: Diabetes mellitus fpc insulin use: with fpc use Chronic kidney disease stage: stage 3 (moderate) Qualified Code(s): E11.22 - Type 2 diabetes mellitus with diabetic chronic kidney disease; N18.3 - Chronic kidney disease, stage 3 (moderate); Z79.4 - intermodal dispatcher (current) use of insulin (5) Sacral decubitus ulcer, stage II Current Visit: Yes Status: Chronic Assessment and plan: Chronic stage II secondary to chronic bed rest and DMII Continue monitoring. - Subjective Interval history: Patient seen and examined. She reports continued RUQ abdominal pain with nausea. Patient denies fevers, chills, cp, sob. - Constitutional Vitals: Temp Pulse Resp BP Pulse Ox 98.3 F 79 18 107/47 100 10/19/16 10:46 10/19/16 10:46 10/19/16 10:52 10/19/16 10:46 10/19/16 10:52 General appearance: Present: cooperative, morbidly obese, pleasant, no acute distress, answers questions appropriately - Head Head exam: Present: atraumatic, normocephalic - Eye Eye exam: Present: EOMI, PERRL, conjuntiva pink, sclera anicteric Pupils: Present: PERRL - Neck Neck exam general surgery: Present: supple, trachea midline. Absent: lymphadenopathy - Respiratory Respiratory exam: Present: decreased breath sounds, CTAB. Absent: accessory muscle use, rales, rhonchi, wheezes - Cardiovascular Cardiovascular exam: Present: RRR, +S1, +S2. Absent: diastolic murmur, gallop, rubs, systolic murmur - GI/Abdominal GI/Abdominal exam: Present: normal bowel sounds, soft, tenderness (RUQ), no peritoneal signs - Extremities Exam Extremities exam: Present: normal capillary refill, pedal edema, tenderness, warm, radial pulses palpable and symetrical - Neurological Exam Neurological exam: Present: alert, no focal deficits - Psychiatric Psychiatric exam: Present: normal affect, normal mood - Skin Skin exam: Present: dry. Absent: diaphoretic, erythema, rash Additional comments: chronic venous stasis changes to b/l LE Internal Medicine: Result - Labs CBC & Chem 7: 10/19/16 08:05 10/19/16 12:20 Labs: Short CBC 10/19/16 Range/Units 08:05 WBC 8.9 (4.3-11.1) K/mcL Hgb 7.6 L (11.5-15.4) g/dL Hct 25.7 L (35.3-44.9) % Plt Count 398 (140-400) K/mcL Neutrophils # 6.8 (1.6-8.9) K/mcL BMP 10/19/16 10/19/16 08:05 12:20 Sodium 141 141 Potassium 4.4 4.9 H Chloride 109 109 Carbon Dioxide 25 24 BUN 35 H 35 H Creatinine 1.52 H 1.48 H Glucose 104 H 149 H Calcium 8.4 L 8.2 L Liver Function 10/19/16 10/19/16 Range/Units 08:05 12:20 Total Bilirubin 2.4 H D 2.4 H (0.2-1.2) mg/dL AST 131 H 136 H (5-34) Units/L ALT 62 H 64 H (0-55) Units/L Alkaline Phosphatase 1319 H 1300 H (38-126) Units/L Albumin 1.8 L 1.7 L (3.5-5.0) g/dL - ABG Interpretation ABG results: ABG ABG pH 7.32 pH Units (7.32-7.45) 10/07/16 15:04 ABG pCO2 57 mmHg (35-45) H 10/07/16 15:04 ABG pO2 108 mmHg (85-104) H 10/07/16 15:04 ABG O2 Saturation 98 % (95-98) 10/07/16 15:04 PT/INR, D-dimer PT 13.8 Seconds (9.4-12.1) H 10/07/16 10:09 - Impressions Impressions Abdomen MRI 10/17/16 09:36 IMPRESSION: 1. Distended gallbladder with mild wall thickening, gallbladder sludge and pericholecystic fluid. Findings are suspicious for acute cholecystitis. 2. No biliary dilation or choledocholithiasis. 3. Indeterminate 6 mm focal area of wall thickening in the gallbladder fundus, which could represent a polyp. 4. Anasarca with increasing/new bilateral pleural effusions. The findings were sent to the Radiology Results Communication Center at 2:09 pm on 10/17/2016to be communicated to a licensed caregiver. D/ / 10/17/2016 14:36:22 Leonela Majano MD / [email or web address] Interpreting Provider: Leonela Majano MD - VTE Documentation of Mechanical Device: Intermittent pneumatic compression device Consult Discharge Plan - Plan Referrals: NO,PCP [Primary Care Provider] - (Patient follows up with [facility] PCP) Prescriptions: Ertapenem [INVanz] 500 mg IVPB DAILY 11 Days Ertapenem [INVanz] 500 mg IVPB DAILY #10 vial <Bobby Murray - Last Filed: 10/19/16 16:48> - Assessment and plan (1) UTI (urinary tract infection) Current Visit: Yes Status: Acute Qualifiers: Urinary tract infection type: acute cystitis Hematuria presence: without hematuria Qualified Code(s): N30.00 - Acute cystitis without hematuria (2) Infection due to ESBL-producing Escherichia coli Current Visit: Yes Status: Acute (3) Bacteremia, escherichia coli Current Visit: Yes Status: Acute (4) Chronic kidney disease, stage III (moderate) Current Visit: Yes Status: Chronic (5) Diabetes mellitus Current Visit: No Status: Chronic Qualifiers: Diabetes mellitus type: type 2 Diabetes mellitus complication status: with kidney complications Diabetes mellitus complication detail: with chronic kidney disease Diabetes mellitus long winder tender insulin use: with fpc use Chronic kidney disease stage: stage 3 (moderate) Qualified Code(s): E11.22 - Type 2 diabetes mellitus with diabetic chronic kidney disease; N18.3 - Chronic kidney disease, stage 3 (moderate); Z79.4 - long-term (current) use of insulin (6) Acute metabolic encephalopathy Current Visit: Yes Status: Resolved (7) Intrahepatic cholestasis Current Visit: Yes Status: Acute (8) Sacral decubitus ulcer, stage II Current Visit: Yes Status: Chronic (9) Morbid obesity with BMI of 45.0-49.9, adult Current Visit: No Status: Chronic - Constitutional Vitals: Temp Pulse Resp BP Pulse Ox 98.3 F 70 16 115/55 100 10/19/16 15:37 10/19/16 15:37 10/19/16 15:59 10/19/16 15:37 10/19/16 15:59 Internal Medicine: Result - Labs CBC & Chem 7: 10/19/16 08:05 10/19/16 12:20 Labs: Short CBC 10/19/16 Range/Units 08:05 WBC 8.9 (4.3-11.1) K/mcL Hgb 7.6 L (11.5-15.4) g/dL Hct 25.7 L (35.3-44.9) % Plt Count 398 (140-400) K/mcL Neutrophils # 6.8 (1.6-8.9) K/mcL BMP 10/19/16 10/19/16 08:05 12:20 Sodium 141 141 Potassium 4.4 4.9 H Chloride 109 109 Carbon Dioxide 25 24 BUN 35 H 35 H Creatinine 1.52 H 1.48 H Glucose 104 H 149 H Calcium 8.4 L 8.2 L Liver Function 10/19/16 10/19/16 Range/Units 08:05 12:20 Total Bilirubin 2.4 H D 2.4 H (0.2-1.2) mg/dL AST 131 H 136 H (5-34) Units/L ALT 62 H 64 H (0-55) Units/L Alkaline Phosphatase 1319 H 1300 H (38-126) Units/L Albumin 1.8 L 1.7 L (3.5-5.0) g/dL - ABG Interpretation ABG results: ABG ABG pH 7.32 pH Units (7.32-7.45) 10/07/16 15:04 ABG pCO2 57 mmHg (35-45) H 10/07/16 15:04 ABG pO2 108 mmHg (85-104) H 10/07/16 15:04 ABG O2 Saturation 98 % (95-98) 10/07/16 15:04 PT/INR, D-dimer PT 13.8 Seconds (9.4-12.1) H 10/07/16 10:09 - Attending Attestation I examined this patient and my medical decision-making was reviewed with the Resident Physician on 10/19/16. I agree with the documented findings, disposition and treatment plan as described except to the extent set forth below. Ms. Dsouza is currently admitted for acute ESBL UTI and bacteremia. She remains high risk due to potential for worsening infection as well as recurrent elevations of her LFTs today. Ms. Dsouza feels OK. Denies worsening abd pain. Has been tolerating some diet. No fever or chills. Tolerating IV abx. No diarrhea. Exam Alert. Comfortable Heart reg Lungs clear Abd soft - continued tenderness epigastric area without peritoneal signs. I/P 1. Acute ESBL E coli UTI and bacteremia - on IV Ertapenem 2. Elevated liver function - ? med vs gallbladder. No fever or chills. WBC now normal. Recheck in AM. 3. PRADEEP on CKD - improving Further diagnoses and plan as above.
--- NOTE | 2016-10-19 15:10 | Infectious Disease Progress No ---
Date of Encounter: 10/19/16 Time of Encounter: 14:30 - Assessment and Plan (1) Sepsis Current Visit: Yes Status: Acute The patient had two SIRS criteria with PRADEEP and metabolic encaphalopathy on admission. Likely secondary to bacteremia and UTI. Improved. The patient has been afebrile since 10/14/16. Leukocytosis resolved. Blood cultures drawn 10/07/16 were positive 2/2 sets for E. coli ESBL. Repeat blood cultures drawn 10/16/16 are NGTD x 2 sets. Qualifiers: Sepsis type: Escherichia coli Qualified Code(s): A41.51 - Sepsis due to Escherichia coli [E. coli] (2) Bacteremia Current Visit: Yes Status: Acute Causative organism E. coli ESBL. Source likely UTI. Blood cultures drawn 10/07/16 were positive 2/2 sets. Repeat blood cultures not drawn until 10/16/16 and are NGTD x 2 sets. The patient has two modified Marmolejo's criteria. No endocarditis stigmata on exam. Low index of suspicion for IE. Treated with 8 days of Zosyn before being switched to Meropenem for two days. Currently on Ertapenem since 10/16/16. Continue Ertapenem 500mg IV daily (dosed for CrCl ~25). The patient has likely received adequate antibiotic coverage with Zosyn, however, there is a high rate of resistance development during treatment. Agree with switching to a carbapenem for the rest of treatment. Duration of treatment depends on the clinical picture, but would recommend a total of 14 days from the first set of negative blood cultures. Treat through . Monitor renal function and dose-adjust antibiotics. May need to increase dose of Ertapenem if renal function continues to improve. Will ask pharmacy to assist with adjusting ATB dose. Powerglide has been placed. (3) UTI (urinary tract infection) Current Visit: Yes Status: Acute Causative organism E. coli ESBL. Mccarty catheter in place was placed upon arrival to the ED. Continue antibiotics as above. Qualifiers: Urinary tract infection type: acute cystitis Hematuria presence: without hematuria Qualified Code(s): N30.00 - Acute cystitis without hematuria (4) ARF (acute renal failure) Current Visit: Yes Status: Acute Likely secondary to UTI/Sepsis. Improved. Serum creatinine back to baseline. Nephrology consulted and signed off. Monitor renal function and dose-adjust antibiotics. Qualifiers: Acute renal failure type: unspecified Qualified Code(s): N17.9 - Acute kidney failure, unspecified (5) Acute metabolic encephalopathy Current Visit: Yes Status: Resolved Likely secondary to sepsis. Resolved. (6) Elevated LFTs Current Visit: Yes Status: Acute Etiology not entirely clear. Worse today. GI consulted. RUQ UTS shows gallbladder thickening and sludge, but no definitive cholecystitis. MRCP showed possible acute cholecystitis. General surgery consulted. No surgical intervention needed at this time. Continue to trend. Discussed with Dr. Murray of the hospitalist team. (7) Anemia Current Visit: Yes Status: Acute EGD/C-scope negative for bleeding. Hgb stable around 7. No evidence of active bleeding. Management per the primary team. Qualifiers: Anemia type: unspecified type Qualified Code(s): D64.9 - Anemia, unspecified (8) Hyperkalemia Current Visit: Yes Status: Resolved (9) Hx of coronary artery disease Current Visit: Yes Status: Chronic (10) Chronic kidney disease, stage III (moderate) Current Visit: Yes Status: Chronic (11) Sacral decubitus ulcer, stage II Current Visit: Yes Status: Chronic (12) Type 2 diabetes mellitus with diabetic chronic kidney disease Current Visit: Yes Status: Chronic Qualifiers: Diabetes mellitus prison insulin use: with termite treater use Chronic kidney disease stage: stage 3 (moderate) Qualified Code(s): E11.22 - Type 2 diabetes mellitus with diabetic chronic kidney disease; N18.3 - Chronic kidney disease, stage 3 (moderate); Z79.4 - termite treater (current) use of insulin - Subjective Interval history: Patient seen and examined. No acute events noted overnight. Patient resting quietly in bed with eyes closed, awakens easily. States she feels better today. Denies fever, chills, or rigors. Denies chest pain, shortness of breath, or cough. Denies vomiting or diarrhea, but does report some nausea. Continues to complain of right sided abdominal pain. Denies oral thrush or new skin lesions. Infect Dis PN-Objective Data - Labs CBC & Chem 7: 10/19/16 08:05 10/19/16 12:20 Labs: Laboratory Results - last 24 hr 10/18/16 10/18/16 10/18/16 06:23 07:17 11:41 WBC RBC Hgb Hct MCV MCH MCHC RDW Plt Count MPV Immature Gran % Seg Neutrophils % Lymphocytes % Monocytes % Eosinophils % Basophils % Neutrophils # Lymphocytes # Monocytes # Eosinophils # Basophils # Sodium Potassium Chloride Carbon Dioxide BUN Creatinine Est GFR ( Amer) Est GFR (Non-Af Amer) BUN/Creatinine Ratio Glucose POC Glucose 81 96 H Calculated Osmolality Calcium Total Bilirubin AST ALT Alkaline Phosphatase Serum Total Protein Albumin Globulin Albumin/Globulin Ratio Prealbumin 8.0 L Lipase 10/18/16 10/18/16 10/19/16 15:02 21:30 08:05 WBC 8.9 RBC 2.65 L Hgb 7.6 L Hct 25.7 L MCV 97.0 MCH 28.7 MCHC 29.6 L RDW 16.8 H Plt Count 398 MPV 9.0 L Immature Gran % 0.4 Seg Neutrophils % 76.3 Lymphocytes % 14.4 Monocytes % 6.9 Eosinophils % 1.6 Basophils % 0.4 Neutrophils # 6.8 Lymphocytes # 1.3 Monocytes # 0.6 Eosinophils # 0.1 Basophils # 0.0 Sodium Potassium Chloride Carbon Dioxide BUN Creatinine Est GFR ( Amer) Est GFR (Non-Af Amer) BUN/Creatinine Ratio Glucose POC Glucose 95 H 99 H Calculated Osmolality Calcium Total Bilirubin AST ALT Alkaline Phosphatase Serum Total Protein Albumin Globulin Albumin/Globulin Ratio Prealbumin Lipase 10/19/16 10/19/16 08:05 12:20 WBC RBC Hgb Hct MCV MCH MCHC RDW Plt Count MPV Immature Gran % Seg Neutrophils % Lymphocytes % Monocytes % Eosinophils % Basophils % Neutrophils # Lymphocytes # Monocytes # Eosinophils # Basophils # Sodium 141 141 Potassium 4.4 4.9 H Chloride 109 109 Carbon Dioxide 25 24 BUN 35 H 35 H Creatinine 1.52 H 1.48 H Est GFR ( Amer) 41 L 42 L Est GFR (Non-Af Amer) 34 L 35 L BUN/Creatinine Ratio 23 24 Glucose 104 H 149 H POC Glucose Calculated Osmolality 300 303 H Calcium 8.4 L 8.2 L Total Bilirubin 2.4 H D 2.4 H AST 131 H 136 H ALT 62 H 64 H Alkaline Phosphatase 1319 H 1300 H Serum Total Protein 6.8 6.8 Albumin 1.8 L 1.7 L Globulin 5.0 H 5.1 H Albumin/Globulin Ratio 0.4 L 0.3 L Prealbumin Lipase 62 Cultures: Cultures 10/16/16 18:32 Blood Culture - Preliminary Peripheral Venipuncture No growth. 10/16/16 18:32 Blood Culture - Preliminary Peripheral Venipuncture No growth. Serology 10/11/16 Range/Units 01:44 Stool Occult Blood Negative (Negative) - Impressions Impressions Abdomen MRI 10/17/16 09:36 IMPRESSION: 1. Distended gallbladder with mild wall thickening, gallbladder sludge and pericholecystic fluid. Findings are suspicious for acute cholecystitis. 2. No biliary dilation or choledocholithiasis. 3. Indeterminate 6 mm focal area of wall thickening in the gallbladder fundus, which could represent a polyp. 4. Anasarca with increasing/new bilateral pleural effusions. The findings were sent to the Radiology Results [facility] at 2:09 pm on 10/17/2016to be communicated to a licensed caregiver. D/ / 10/17/2016 14:36:22 Leonela Majano MD / earnold Interpreting Provider: Leonela Majano MD Exam - Constitutional Vitals: Temp Pulse Resp BP Pulse Ox 98.3 F 79 18 107/47 100 10/19/16 10:46 10/19/16 10:46 10/19/16 10:52 10/19/16 10:46 10/19/16 10:52 General appearance: cooperative, morbidly obese, no acute distress - Head Head exam: Present: atraumatic, normal inspection, normocephalic - Eye Eye exam: Present: EOMI, normal appearance, PERRL Pupils: Present: normal accommodation - ENT ENT exam: Present: mucous membranes moist - Neck Neck exam: Present: normal inspection - Respiratory Respiratory exam: Present: CTAB. Absent: rales, respiratory distress, rhonchi, wheezes - Cardiovascular Cardiovascular exam: Present: RRR, +S1, +S2 - GI/Abdominal GI/Abdominal exam: Present: distended (obese), normal bowel sounds, soft, tenderness (epigastric, RUQ) Additional comments: Mccarty catheter noted to be draining clear, dark yellow urine. - Extremities Exam Extremities exam: Present: pedal edema (2+ BLE). Absent: joint swelling, tenderness - Neurological Exam Neurological exam: Present: alert, oriented X3, no focal deficits - Psychiatric Psychiatric exam: Present: normal affect, normal mood - Skin Skin exam: Present: dry, intact, normal color, warm - Additional findings Additional findings: Powerglide EPIV noted to the LUE with transparent dressing C/D/I. - VTE Documentation of Mechanical Device: Intermittent pneumatic compression device Consult Discharge Plan - Plan Referrals: NO,PCP [Primary Care Provider] - (Patient follows up with ECF PCP) Prescriptions: Ertapenem [INVanz] 500 mg IVPB DAILY 11 Days Ertapenem [INVanz] 500 mg IVPB DAILY #10 vial
[2016-10-19 20:01] LABS: INR 1.5; Prothrombin Time 15.8 Seconds (9.4-12.1)
[2016-10-19 20:03] LABS: Activated Partial Thrombo Time 37.6 Seconds (26.0-36.0)
[2016-10-19] MEDS ORDERED: cefOXitin 2,000 MG in D5% in Water (Mini-Bag+) 100 ML IVPB SCH (21:00)
[2016-10-20 04:15] LABS: Basophils % 0.4 %; Eosinophils # 0.2 K/mcL (0.0-0.6); Eosinophils % 2.2 %; Hematocrit 23.7 % (35.3-44.9); Hemoglobin 7.2 g/dL (11.5-15.4); Immature Granulocytes % 0.3 % (0-4); Lymphocytes # 1.3 K/mcL (0.6-4.6); Lymphocytes % 13.9 %; Mean Corpuscular HGB Conc 30.4 g/dL (31.6-35.5); Mean Corpuscular Hemoglobin 28.9 pg (28.0-33.3); Mean Corpuscular Volume 95.2 fL (83.0-100.0); Mean Platelet Volume 8.9 fL (9.4-12.4); Monocytes # 0.6 K/mcL (0.0-1.3); Monocytes % 6.5 %; Neutrophils # 7.1 K/mcL (1.6-8.9); Platelet Count 370 K/mcL (140-400); Red Blood Count 2.49 M/mcL (3.82-4.97); Red Cell Distribution Width 16.9 % (11.5-14.5); Segmented Neutrophils % 76.7 %
[2016-10-20 04:21] LABS: Albumin/Globulin Ratio 0.3 (1.1-2.2); Bilirubin,Total 1.3 mg/dL (0.2-1.2); Calcium 8.2 mg/dL (8.6-10.8); Globulin 4.9 g/dL (2.4-3.5); Potassium 4.3 mEq/L (3.5-4.5); Total Protein 6.6 g/dL (6.0-8.3)
[2016-10-20 04:23] LABS: Albumin 1.7 g/dL (3.5-5.0)
[2016-10-20] MEDS: Ipratropium/Albuterol Neb 3 ML IH SCH ×4 (04:27→21:17)
[2016-10-20] MEDS: Levothyroxine 25 MCG TABLET PO SCH (06:03)
[2016-10-20] MEDS: Gabapentin 300 MG CAPSULE PO SCH (08:16)
[2016-10-20] MEDS: Multivit/Ca/Min/Fe/FA 1 TAB TABLET PO SCH (08:16)
[2016-10-20] MEDS: Loratadine 10 MG TABLET PO SCH (08:16)
[2016-10-20] MEDS: Insulin LISPRO 300 UNITS/3 ML VIAL SQ SCH ×4 (08:16→21:27)
[2016-10-20] MEDS: Aspirin 81 MG TAB.CHEW PO SCH (08:16)
[2016-10-20] MEDS: Insulin DETEMIR 100 UNIT/ML X5UNITS SQ SCH ×2 (08:17→21:31)
[2016-10-20] MEDS: Isosorbide MONOnitrate (24 HR) 30 MG TAB.ER.24H PO SCH (08:17)
[2016-10-20] MEDS: Metoprolol XL (24 HR) Succ 25 MG TAB.ER.24H PO SCH (08:18)
[2016-10-20] MEDS: cloNIDine HCl 0.1 MG TABLET PO SCH (08:28)
[2016-10-20] MEDS: hydrALAZINE 25 MG TABLET PO SCH ×2 (08:28→21:31)
[2016-10-20] MEDS: Budesonide Neb 0.5 MG/2 ML IH SCH ×2 (10:18→21:17)
--- NOTE | 2016-10-20 15:25 | Internal Med Progress Note ---
Date of Encounter: 10/20/16 Time of Encounter: 11:30 - Assessment and plan (1) UTI (urinary tract infection) Current Visit: Yes Status: Acute Assessment and plan: Currently on IV Ertapenem for ESBL E coli. Continue through 10/30 Qualifiers: Urinary tract infection type: acute cystitis Hematuria presence: without hematuria Qualified Code(s): N30.00 - Acute cystitis without hematuria (2) Infection due to ESBL-producing Escherichia coli Current Visit: Yes Status: Acute Assessment and plan: As above. (3) Bacteremia, escherichia coli Current Visit: Yes Status: Acute Assessment and plan: Repeat blood cultures negative. (4) Intrahepatic cholestasis Current Visit: Yes Status: Acute Assessment and plan: Alk phos and transaminases are elevated again. Recheck tomorrow. Her symptoms are improved. (5) Chronic kidney disease, stage III (moderate) Current Visit: Yes Status: Chronic Assessment and plan: Follow (6) Diabetes mellitus Current Visit: No Status: Chronic Assessment and plan: Following blood sugar Qualifiers: Diabetes mellitus type: type 2 Diabetes mellitus complication status: with kidney complications Diabetes mellitus complication detail: with chronic kidney disease Diabetes mellitus long term care phlebotomist insulin use: with jail use Chronic kidney disease stage: stage 3 (moderate) Qualified Code(s): E11.22 - Type 2 diabetes mellitus with diabetic chronic kidney disease; N18.3 - Chronic kidney disease, stage 3 (moderate); Z79.4 - oil heaterman (current) use of insulin (7) Acute metabolic encephalopathy Current Visit: Yes Status: Resolved Assessment and plan: Likely secondary to ESBL bacteremia and UTI. Patient has been on antibiotics since 10/07/2016. Mental status has improved. Blood cultures drawn on 2016 demonstrated no growth. Plan for transfer back to [facility] to complete antibiotic therapy. Alk phos doubled today to 1319. Ertapenem does cause elevation of LFTs and alk phos 10% of the time. Since according to US and MRI this is unlikely secondary to her gallbladder/acute cholecystitis, it is possible that the ertapenem is a cause. Discussed alternative treatment with cefoxitin. Per ID we need to continue with ertapenem as alternative therapies will fail as outpatient. Will continue to monitor alk phos. If the patient develops fever or acute abdominal pain she will then need an ERCP. Plan: -Continue ertapenem -ID has been consulted, recommends continuing abxcoverage through 10/30/16 if cultures from 10/16/16 are negative. -Recheck alk phos in AM, -Monitor sx closely, if becomes febrile or develops acute abd pain will need ERCP 10/20 - mental status is improved overall. (8) Sacral decubitus ulcer, stage II Current Visit: Yes Status: Chronic Assessment and plan: Chronic stage II secondary to chronic bed rest and DMII Continue monitoring. (9) Morbid obesity with BMI of 45.0-49.9, adult Current Visit: No Status: Chronic Assessment and plan: Chronic - Subjective Interval history: Ms. Dsouza is currently admitted for acute ESBL e coli UTI and bacteremia. Her LFTs remain elevated. She remains high risk due to potential for worsening infection and hepatic issues. Ms. Dsouza feels OK. No abd pain today. No fever or chills. No CP or cough. Abd seems to be doing somewhat better overall. LFTs were elevated again yesterday and a little better today. - Constitutional Vitals: Temp Pulse Resp BP Pulse Ox 98.4 F 74 16 134/51 100 10/20/16 11:39 10/20/16 11:39 10/20/16 11:39 10/20/16 11:39 10/20/16 11:39 General appearance: Present: cooperative, morbidly obese, pleasant, answers questions appropriately - Eye Eye exam: Present: EOMI, conjuntiva pink - ENT ENT exam: Present: mucous membranes moist - Respiratory Respiratory exam: Present: decreased breath sounds, CTAB - Cardiovascular Cardiovascular exam: Present: RRR. Absent: tachycardia - GI/Abdominal GI/Abdominal exam: Present: soft. Absent: tenderness (No tenderness at this time.) - Extremities Exam Extremities exam: Present: pedal edema, warm - Neurological Exam Neurological exam: Present: alert, oriented X3, no focal deficits - Psychiatric Psychiatric exam: Present: normal affect, normal mood - Skin Skin exam: Present: dry, warm. Absent: rash Internal Medicine: Result - Labs CBC & Chem 7: 10/20/16 03:45 10/20/16 03:45 Labs: Short CBC 10/20/16 Range/Units 03:45 WBC 9.3 (4.3-11.1) K/mcL Hgb 7.2 L (11.5-15.4) g/dL Hct 23.7 L (35.3-44.9) % Plt Count 370 (140-400) K/mcL Neutrophils # 7.1 (1.6-8.9) K/mcL BMP 10/20/16 03:45 Sodium 140 Potassium 4.3 Chloride 109 Carbon Dioxide 24 BUN 33 H Creatinine 1.43 H Glucose 100 H Calcium 8.2 L Liver Function 10/20/16 Range/Units 03:45 Total Bilirubin 1.3 H (0.2-1.2) mg/dL AST 116 H (5-34) Units/L ALT 58 H (0-55) Units/L Alkaline Phosphatase 1190 H (38-126) Units/L Albumin 1.7 L (3.5-5.0) g/dL - ABG Interpretation ABG results: ABG ABG pH 7.32 pH Units (7.32-7.45) 10/07/16 15:04 ABG pCO2 57 mmHg (35-45) H 10/07/16 15:04 ABG pO2 108 mmHg (85-104) H 10/07/16 15:04 ABG O2 Saturation 98 % (95-98) 10/07/16 15:04 PT/INR, D-dimer PT 15.8 Seconds (9.4-12.1) H 10/19/16 19:45 - VTE Documentation of Mechanical Device: Intermittent pneumatic compression device Consult Discharge Plan - Plan Referrals: NO,PCP [Primary Care Provider] - (Patient follows up with ECF PCP) Prescriptions: Ertapenem [INVanz] 500 mg IVPB DAILY 11 Days Ertapenem [INVanz] 500 mg IVPB DAILY #10 vial
[2016-10-21 02:44] LABS: Hematocrit 24.7 % (35.3-44.9); Hemoglobin 7.5 g/dL (11.5-15.4); Mean Corpuscular HGB Conc 30.4 g/dL (31.6-35.5); Mean Corpuscular Volume 95.4 fL (83.0-100.0); Mean Platelet Volume 8.6 fL (9.4-12.4); Platelet Count 373 K/mcL (140-400); Red Blood Count 2.59 M/mcL (3.82-4.97); Red Cell Distribution Width 17.2 % (11.5-14.5)
[2016-10-21 02:51] LABS: INR 1.3; Prothrombin Time 14.5 Seconds (9.4-12.1)
[2016-10-21 03:01] LABS: Albumin/Globulin Ratio 0.4 (1.1-2.2); Bilirubin,Direct 0.6 mg/dL (0.0-0.5); Bilirubin,Indirect 0.2 mg/dL (0.0-1.2); Bilirubin,Total 0.8 mg/dL (0.2-1.2); Calcium 8.3 mg/dL (8.6-10.8); Globulin 5.1 g/dL (2.4-3.5); Potassium 4.5 mEq/L (3.5-4.5)
[2016-10-21 03:04] LABS: Albumin 1.9 g/dL (3.5-5.0)
[2016-10-21] MEDS: Ipratropium/Albuterol Neb 3 ML IH SCH ×3 (03:53→16:22)
[2016-10-21] MEDS: Levothyroxine 25 MCG TABLET PO SCH (06:12)
[2016-10-21] MEDS: Isosorbide MONOnitrate (24 HR) 30 MG TAB.ER.24H PO SCH (08:26)
[2016-10-21] MEDS: Metoprolol XL (24 HR) Succ 25 MG TAB.ER.24H PO SCH (08:26)
[2016-10-21] MEDS: cloNIDine HCl 0.1 MG TABLET PO SCH (08:26)
[2016-10-21] MEDS: Aspirin 81 MG TAB.CHEW PO SCH (08:26)
[2016-10-21] MEDS: Loratadine 10 MG TABLET PO SCH (08:26)
[2016-10-21] MEDS: Gabapentin 300 MG CAPSULE PO SCH (08:26)
[2016-10-21] MEDS: hydrALAZINE 25 MG TABLET PO SCH ×2 (08:26→20:40)
[2016-10-21] MEDS: Multivit/Ca/Min/Fe/FA 1 TAB TABLET PO SCH (08:26)
[2016-10-21] MEDS: Insulin DETEMIR 100 UNIT/ML X5UNITS SQ SCH ×2 (08:30→20:40)
--- NOTE | 2016-10-21 08:32 | Internal Med Progress Note ---
Date of Encounter: 10/21/16 Time of Encounter: 08:10 - Assessment and plan (1) UTI (urinary tract infection) Current Visit: Yes Status: Acute Assessment and plan: Currently on IV Ertapenem for ESBL E coli. Continue through 10/30 Qualifiers: Urinary tract infection type: acute cystitis Hematuria presence: without hematuria Qualified Code(s): N30.00 - Acute cystitis without hematuria (2) Infection due to ESBL-producing Escherichia coli Current Visit: Yes Status: Acute Assessment and plan: As above. (3) Bacteremia, escherichia coli Current Visit: Yes Status: Acute Assessment and plan: Repeat blood cultures negative. (4) Intrahepatic cholestasis Current Visit: Yes Status: Acute Assessment and plan: Alk phos and transaminases slowly improving again. Recheck in AM. Will need recheck by GI prior to discharge. (5) Chronic kidney disease, stage III (moderate) Current Visit: Yes Status: Chronic Assessment and plan: Follow (6) Diabetes mellitus Current Visit: No Status: Chronic Assessment and plan: Following blood sugar Qualifiers: Diabetes mellitus type: type 2 Diabetes mellitus complication status: with kidney complications Diabetes mellitus complication detail: with chronic kidney disease Diabetes mellitus intermission coordinator insulin use: with prison use Chronic kidney disease stage: stage 3 (moderate) Qualified Code(s): E11.22 - Type 2 diabetes mellitus with diabetic chronic kidney disease; N18.3 - Chronic kidney disease, stage 3 (moderate); Z79.4 - exterminator termite (current) use of insulin (7) Acute metabolic encephalopathy Current Visit: Yes Status: Resolved Assessment and plan: Likely secondary to ESBL bacteremia and UTI. Patient has been on antibiotics since 10/07/2016. Mental status has improved. Blood cultures drawn on 2016 demonstrated no growth. Plan for transfer back to [facility] to complete antibiotic therapy. Alk phos doubled today to 1319. Ertapenem does cause elevation of LFTs and alk phos 10% of the time. Since according to US and MRI this is unlikely secondary to her gallbladder/acute cholecystitis, it is possible that the ertapenem is a cause. Discussed alternative treatment with cefoxitin. Per ID we need to continue with ertapenem as alternative therapies will fail as outpatient. Will continue to monitor alk phos. If the patient develops fever or acute abdominal pain she will then need an ERCP. Plan: -Continue ertapenem -ID has been consulted, recommends continuing abxcoverage through 10/30/16 if cultures from 10/16/16 are negative. -Recheck alk phos in AM, -Monitor sx closely, if becomes febrile or develops acute abd pain will need ERCP 10/20 - mental status is improved overall. (8) Sacral decubitus ulcer, stage II Current Visit: Yes Status: Chronic Assessment and plan: Chronic stage II secondary to chronic bed rest and DMII Continue monitoring. (9) Morbid obesity with BMI of 45.0-49.9, adult Current Visit: No Status: Chronic Assessment and plan: Chronic - Subjective Interval history: Ms. Dsouza is currently admitted for acute ESBL e coli UTI and bacteremia. Her LFTs remain elevated. She remains high risk due to potential for worsening infection and hepatic issues. Ms. Dsouza just woke up. She is going to eat breakfast. Abd pain is doing OK thus far. No new acute issues. Able to tolerate diet without issue today. Bowels OK. No N/V. - Constitutional Vitals: Temp Pulse Resp BP Pulse Ox 97.5 F L 71 16 124/52 100 10/21/16 05:01 10/21/16 05:01 10/21/16 05:01 10/21/16 05:01 10/21/16 05:01 General appearance: Present: cooperative, morbidly obese, pleasant, answers questions appropriately - Head Head exam: Present: atraumatic, normocephalic - Eye Eye exam: Present: conjuntiva pink - ENT ENT exam: Present: mucous membranes dry - Respiratory Respiratory exam: Present: decreased breath sounds, CTAB - Cardiovascular Cardiovascular exam: Present: RRR. Absent: tachycardia - GI/Abdominal GI/Abdominal exam: Present: soft, no peritoneal signs. Absent: tenderness - Extremities Exam Extremities exam: Present: warm. Absent: pedal edema - Neurological Exam Neurological exam: Present: alert, oriented X3 - Skin Skin exam: Present: warm. Absent: rash Internal Medicine: Result - Labs CBC & Chem 7: 10/21/16 00:38 10/21/16 00:38 Labs: Short CBC 10/21/16 Range/Units 00:38 WBC 11.9 H (4.3-11.1) K/mcL Hgb 7.5 L (11.5-15.4) g/dL Hct 24.7 L (35.3-44.9) % Plt Count 373 (140-400) K/mcL BMP 10/21/16 00:38 Sodium 139 Potassium 4.5 Chloride 108 Carbon Dioxide 25 BUN 29 H Creatinine 1.27 H Glucose 164 H Calcium 8.3 L Liver Function 10/21/16 Range/Units 00:38 Total Bilirubin 0.8 (0.2-1.2) mg/dL Direct Bilirubin 0.6 H (0.0-0.5) mg/dL AST 71 H (5-34) Units/L ALT 48 (0-55) Units/L Alkaline Phosphatase 1070 H (38-126) Units/L Albumin 1.9 L (3.5-5.0) g/dL - ABG Interpretation ABG results: ABG ABG pH 7.32 pH Units (7.32-7.45) 10/07/16 15:04 ABG pCO2 57 mmHg (35-45) H 10/07/16 15:04 ABG pO2 108 mmHg (85-104) H 10/07/16 15:04 ABG O2 Saturation 98 % (95-98) 10/07/16 15:04 PT/INR, D-dimer PT 14.5 Seconds (9.4-12.1) H 10/21/16 00:38 - VTE Documentation of Mechanical Device: Intermittent pneumatic compression device Consult Discharge Plan - Plan Referrals: NO,PCP [Primary Care Provider] - (Patient follows up with ECF PCP) Prescriptions: Ertapenem [INVanz] 500 mg IVPB DAILY 11 Days Ertapenem [INVanz] 500 mg IVPB DAILY #10 vial
[2016-10-21] MEDS: Insulin LISPRO 300 UNITS/3 ML VIAL SQ SCH ×4 (09:46→23:49)
[2016-10-21] MEDS: Budesonide Neb 0.5 MG/2 ML IH SCH (10:08)
[2016-10-22] MEDS: Ipratropium/Albuterol Neb 3 ML IH SCH ×5 (01:13→22:35)
[2016-10-22] MEDS: Budesonide Neb 0.5 MG/2 ML IH SCH ×3 (01:13→22:35)
[2016-10-22 04:54] LABS: Hematocrit 23.6 % (35.3-44.9); Hemoglobin 7.2 g/dL (11.5-15.4); Mean Corpuscular HGB Conc 30.5 g/dL (31.6-35.5); Mean Corpuscular Hemoglobin 29.6 pg (28.0-33.3); Mean Corpuscular Volume 97.1 fL (83.0-100.0); Mean Platelet Volume 9.2 fL (9.4-12.4); Platelet Count 350 K/mcL (140-400); Red Blood Count 2.43 M/mcL (3.82-4.97); Red Cell Distribution Width 17.6 % (11.5-14.5)
[2016-10-22 05:11] LABS: Albumin/Globulin Ratio 0.4 (1.1-2.2); Bilirubin,Direct 0.4 mg/dL (0.0-0.5); Bilirubin,Indirect 0.2 mg/dL (0.0-1.2); Bilirubin,Total 0.6 mg/dL (0.2-1.2); Calcium 8.1 mg/dL (8.6-10.8); Globulin 4.7 g/dL (2.4-3.5); Potassium 4.7 mEq/L (3.5-4.5); Total Protein 6.5 g/dL (6.0-8.3)
[2016-10-22 05:12] LABS: Albumin 1.8 g/dL (3.5-5.0)
[2016-10-22] MEDS: Levothyroxine 25 MCG TABLET PO SCH (06:01)
[2016-10-22] MEDS: Insulin LISPRO 300 UNITS/3 ML VIAL SQ SCH ×4 (07:30→21:21)
[2016-10-22] MEDS: hydrALAZINE 25 MG TABLET PO SCH ×2 (08:06→21:22)
[2016-10-22] MEDS: Gabapentin 300 MG CAPSULE PO SCH (08:06)
[2016-10-22] MEDS: Aspirin 81 MG TAB.CHEW PO SCH (08:06)
[2016-10-22] MEDS: Insulin DETEMIR 100 UNIT/ML X5UNITS SQ SCH ×2 (08:06→21:21)
[2016-10-22] MEDS: Isosorbide MONOnitrate (24 HR) 30 MG TAB.ER.24H PO SCH (08:06)
[2016-10-22] MEDS: Multivit/Ca/Min/Fe/FA 1 TAB TABLET PO SCH (08:06)
[2016-10-22] MEDS: cloNIDine HCl 0.1 MG TABLET PO SCH (08:06)
[2016-10-22] MEDS: Loratadine 10 MG TABLET PO SCH (08:06)
[2016-10-22] MEDS: Metoprolol XL (24 HR) Succ 25 MG TAB.ER.24H PO SCH (08:06)
[2016-10-22] MEDS ORDERED: Ondansetron 4 MG/2 ML VIAL IVP ONE (08:57)
[2016-10-22] MEDS ORDERED: Lidocaine -MPF 2% 5 ML VIAL INFILT ONE (08:57)
[2016-10-22] MEDS ORDERED: Lidocaine -MPF 4% 5 ML AMPUL TP ONE (08:57)
[2016-10-22] MEDS ORDERED: *HR* Succinylcholine 200 MG/10 ML VIAL IVP ONE (08:57)
[2016-10-22] MEDS ORDERED: *HR* Propofol 200 MG/20 ML VIAL IVP ONE (08:57)
--- NOTE | 2016-10-22 11:22 | Anesthesia Evaluation PreOp ---
Date of Encounter: 10/22/16 Time of Encounter: 11:20 - Past History Planned Operation: ERCP Cardiac History: Denies any Significant Hx (Acute on Chronic Anemia), AK (CAD maintained on ASA, Plavix), HTN (maintained on Hdyralazine, Imdur, Clonidine, Zestril, Metoprolol, Aldactone), Hyperlipidemia (maintained on Lipitor), Other ( ECHO 10/09/2016 - LVEF 55%, atypical septal motion. Overall LV systolic Fx WNL. 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 Urosepsis admission 10/07/2016), Diabetes Type II (maintained on Novolog, Levemir), Thyroid (Maintained on Synthroid), GERD (maintained on Protonix), Other (MO/BMI = 42.2) Anesthesia History: Past Anesthesia (No prior GA) Alcohol Use: none Drug use: none Medications and Allergies Cholecalciferol (Vitamin D3) [Vitamin D3] 50,000 unit PO QWEEK 05/30/16 [History ] Gabapentin [Neurontin] 300 mg PO BID 05/30/16 [History] Hydralazine HCl 100 mg PO Q8H 05/30/16 [History] Insulin ASPART [NovoLOG] 1 - 5 unit SQ ACHS 05/30/16 [History] Isosorbide MONOnitrate (24 HR) [Imdur] 30 mg PO DAILY 05/30/16 [History] CloNIDine HCl [Clonidine HCl] 0.2 mg PO BID #60 tab 06/04/16 [Rx] Aspirin 81 mg PO DAILY 07/10/16 [History] Insulin DETEMIR [Levemir] 50 unit SQ QAM 07/10/16 [History] Insulin DETEMIR [Levemir] 55 unit SQ HS 07/10/16 [History] Acetaminophen [Tylenol] 650 mg PO Q6HR PRN #0 tablet 07/20/16 [Rx] Ipratropium/Albuterol Neb [Duoneb] 3 ml IH [id number] inhsol 07/20/16 [Rx] Tramadol HCl [Ultram] 50 mg PO QID PRN #10 tab 07/20/16 [Rx] Atorvastatin Calcium [Lipitor] 80 mg PO DAILY 07/31/16 [History] Budesonide/Formoterol 160/4.5 [Symbicort 160/4.5] 2 puff IH BID 07/31/16 [ History] ClonazePAM [Klonopin] 1 mg PO TID PRN 07/31/16 [History] Clopidogrel [Plavix] 75 mg PO DAILY 07/31/16 [History] Levothyroxine [Synthroid] 25 mcg PO DAILY 07/31/16 [History] Loperamide [Imodium] 2 mg PO Q4HR PRN 07/31/16 [History] Pantoprazole Sodium [Protonix] 40 mg PO DAILY 07/31/16 [History] Saline Nasal [place] [[place] Nasal [place]] 2 spray NS TID 07/31/16 [History] Tiotropium [Spiriva] 18 mcg IH DAILY 07/31/16 [History] Furosemide [Lasix] 40 mg PO BID #0 08/12/16 [Rx] Lisinopril [Zestril] 5 mg PO DAILY #0 tablet 08/12/16 [Rx] Metoprolol Succinate 25 mg PO DAILY #30 tab.er.24h 08/12/16 [Rx] Spironolactone [Aldactone] 12.5 mg PO DAILY tablet 08/12/16 [Rx] Citalopram [CeleXA] 20 mg PO DAILY 10/07/16 [History] Furosemide [Lasix] 20 mg PO QPM 10/07/16 [History] Loratadine [Claritin] 10 mg PO DAILY 10/07/16 [History] Multivitamin [One Daily Multivitamin] 1 tab PO DAILY 10/07/16 [History] Ertapenem [INVanz] 500 mg IVPB DAILY 11 Days 10/09/16 [Rx] Ertapenem [INVanz] 500 mg IVPB DAILY #10 vial 10/18/16 [Rx] Allergies No Known Allergies Allergy (Verified 07/24/16 16:19) - Meds/Allergy Pre-op Review Medications Reviewed: Yes Allergies Reviewed: Yes Beta Blockers on Current Med List: Yes Anesthesia Results - Labs 10/22/16 04:34 10/22/16 04:34 - Imaging EKG: image reviewed (97bpm Aflutter, Tachy w/ aberrant conduction or pVCs, Anteroseptal AK of indeterminate age. ST deviation & moderate T-wave abnormaility - inferior & Lateral ischemia considered) Anesthesia Exam Vital Signs Temp Pulse Resp BP Pulse Ox 10/22/16 10:47 18 94 L 10/22/16 08:19 96 10/22/16 07:18 97.7 F 65 14 124/49 100 10/22/16 06:02 100 10/22/16 04:40 97.7 F 69 18 133/57 100 10/22/16 04:28 15 100 10/22/16 01:32 97.8 F 64 18 122/58 100 10/22/16 01:13 17 100 10/21/16 22:49 100 10/21/16 20:50 100 10/21/16 20:31 97.9 F 72 18 161/53 100 10/21/16 16:22 18 99 10/21/16 15:59 96.0 F L 69 18 155/77 100 10/21/16 11:27 98.6 F 69 16 157/70 100 Intake and Output 10/21/16 10/22/16 10/22/16 23:59 07:59 15:59 Intake Total 120 / 120 50 / 50 Output Total 0 / 0 425 / 425 0 / 0 Balance 120 / 120 -425 / -425 50 / 50 Intake: Oral 120 / 120 50 / 50 Output: Urine 0 / 0 175 / 175 0 / 0 Urethral (Mccarty) 175 / 175 Catheter 250 / 250 Other: Meal Dinner NPO Percent of Meal Consumed 100% Weight 122.9 kg Blood Glucose* 199 137 Patient Weight 10/22/16 23:59 Weight 122.9 kg Height: 5'7" Weight: 270# BMI = 42 NPO (# of Hours): MNoc - HEENT Pupil (Motor): Pupils equal, EOMI Mallampati: III Teeth: Edentulous (upper) Denture Type: Upper: Complete Oral Opening: Greater than 3 - CHILI PEPPER GRINDER LOC: Oriented CHILI PEPPER GRINDER Motor: Normal RUE, Normal LUE, Normal RLE, Normal LLE, Normal Face CHILI PEPPER GRINDER Sensory: Normal: RUE, LUE, RLE, LLE, Face - Cardiac Rhythm: Regular Murmur: None JVD: No - Pulmonary Breath Sounds: bilateral Clear Respiratory Effort: Symmetrical Anesthesia Assess/Plan ASA Score: 4 (HTN, Chol, MO, DM, CKD stage 3, COPD, JOSEFINA, Hypothyroidism) Modified Millie Scale for Level of Consciousness: Cooperative, oriented, and tranquil Anesthetic Plan: General Monitoring Plan: Standard Monitors Recovery Plan: PACU Anes Supervising Prov Stmt: Pt seen/evaluated, R&B discussed, questions answered and consent obtained. Aide Gomes MD
--- NOTE | 2016-10-22 12:55 | Infectious Disease Progress No ---
Date of Encounter: 10/22/16 Time of Encounter: 12:53 - Assessment and Plan (1) Sepsis Current Visit: Yes Status: Acute The patient had two SIRS criteria with PRADEEP and metabolic encaphalopathy on admission. Likely secondary to bacteremia and UTI. Improved. The patient has been afebrile since 10/14/16. Leukocytosis resolved. Blood cultures drawn 10/07/16 were positive 2/2 sets for E. coli ESBL. Repeat blood cultures drawn 10/16/16 are negative x 2 sets. Qualifiers: Sepsis type: Escherichia coli Qualified Code(s): A41.51 - Sepsis due to Escherichia coli [E. coli] (2) Bacteremia Current Visit: Yes Status: Acute Causative organism E. coli ESBL. Source likely UTI. Blood cultures drawn 10/07/16 were positive 2/2 sets. Repeat blood cultures not drawn until 10/16/16 and are negative x 2 sets. The patient has two modified Marmolejo's criteria. No endocarditis stigmata on exam. Low index of suspicion for IE. Treated with 8 days of Zosyn before being switched to Meropenem for two days. Currently on Ertapenem since 10/16/16. Continue Ertapenem 500mg IV daily (dosed for CrCl ~25). The patient has likely received adequate antibiotic coverage with Zosyn, however, there is a high rate of resistance development during treatment. Agree with switching to a carbapenem for the rest of treatment. Duration of treatment depends on the clinical picture, but would recommend a total of 14 days from the first set of negative blood cultures. Treat through . Monitor renal function and dose-adjust antibiotics. May need to increase dose of Ertapenem if renal function continues to improve. Will ask pharmacy to assist with adjusting ATB dose. Powerglide has been placed. (3) UTI (urinary tract infection) Current Visit: Yes Status: Acute Causative organism E. coli ESBL. Mccarty catheter in place was placed upon arrival to the ED. Continue antibiotics as above. Qualifiers: Urinary tract infection type: acute cystitis Hematuria presence: without hematuria Qualified Code(s): N30.00 - Acute cystitis without hematuria (4) ARF (acute renal failure) Current Visit: Yes Status: Acute Likely secondary to UTI/Sepsis. Improved. Serum creatinine back to baseline. Nephrology consulted and signed off. Monitor renal function and dose-adjust antibiotics. Qualifiers: Acute renal failure type: unspecified Qualified Code(s): N17.9 - Acute kidney failure, unspecified (5) Acute metabolic encephalopathy Current Visit: Yes Status: Resolved Likely secondary to sepsis. Resolved. (6) Elevated LFTs Current Visit: Yes Status: Acute Etiology not entirely clear. Improved over the weekend. GI consulted. RUQ UTS shows gallbladder thickening and sludge, but no definitive cholecystitis. MRCP showed possible acute cholecystitis. General surgery consulted. No surgical intervention needed at this time. Patient scheduled for ERCP later today. (7) Anemia Current Visit: Yes Status: Acute EGD/C-scope negative for bleeding. Hgb stable around 7. No evidence of active bleeding. Management per the primary team. Qualifiers: Anemia type: unspecified type Qualified Code(s): D64.9 - Anemia, unspecified (8) Hyperkalemia Current Visit: Yes Status: Resolved (9) Hx of coronary artery disease Current Visit: Yes Status: Chronic (10) Chronic kidney disease, stage III (moderate) Current Visit: Yes Status: Chronic (11) Sacral decubitus ulcer, stage II Current Visit: Yes Status: Chronic (12) Type 2 diabetes mellitus with diabetic chronic kidney disease Current Visit: Yes Status: Chronic Qualifiers: Diabetes mellitus intermediate manager insulin use: with intermediate manager use Chronic kidney disease stage: stage 3 (moderate) Qualified Code(s): E11.22 - Type 2 diabetes mellitus with diabetic chronic kidney disease; N18.3 - Chronic kidney disease, stage 3 (moderate); Z79.4 - snf (current) use of insulin - Subjective Interval history: Patient seen and examined. Weekend notes reviewed. No acute events noted. Patient resting quietly in bed with eyes closed, awakens easily. States she feels better today. Denies fever, chills, or rigors. Denies chest pain, shortness of breath, or cough. Denies nausea, vomiting or diarrhea. Currently NPO for ERCP later today, but states she is hungry. Denies abdominal pain. Denies oral thrush or new skin lesions. Infect Dis PN-Objective Data - Labs CBC & Chem 7: 10/22/16 04:34 10/22/16 04:34 Labs: Laboratory Results - last 24 hr 10/21/16 10/21/16 10/21/16 07:58 11:26 16:03 WBC RBC Hgb Hct MCV MCH MCHC RDW Plt Count MPV Sodium Potassium Chloride Carbon Dioxide BUN Creatinine Est GFR ( Amer) Est GFR (Non-Af Amer) BUN/Creatinine Ratio Glucose POC Glucose 142 H 136 H 143 H Calculated Osmolality Calcium Magnesium Total Bilirubin Direct Bilirubin Indirect Bilirubin AST ALT Alkaline Phosphatase Serum Total Protein Albumin Globulin Albumin/Globulin Ratio Blood Type Antibody Screen Crossmatch 10/22/16 10/22/16 10/22/16 04:34 04:34 07:15 WBC 9.8 RBC 2.43 L Hgb 7.2 L Hct 23.6 L MCV 97.1 MCH 29.6 MCHC 30.5 L RDW 17.6 H Plt Count 350 MPV 9.2 L Sodium 139 Potassium 4.7 H Chloride 108 Carbon Dioxide 24 BUN 27 H Creatinine 1.26 H Est GFR ( Amer) 51 L Est GFR (Non-Af Amer) 42 L BUN/Creatinine Ratio 21 Glucose 160 H POC Glucose 137 H Calculated Osmolality 297 Calcium 8.1 L Magnesium Total Bilirubin 0.6 Direct Bilirubin 0.4 Indirect Bilirubin 0.2 AST 31 ALT 31 Alkaline Phosphatase 773 H Serum Total Protein 6.5 Albumin 1.8 L Globulin 4.7 H Albumin/Globulin Ratio 0.4 L Blood Type Antibody Screen Crossmatch 10/22/16 10/22/16 10/22/16 11:24 11:34 11:34 WBC RBC Hgb Hct MCV MCH MCHC RDW Plt Count MPV Sodium Potassium Chloride Carbon Dioxide BUN Creatinine Est GFR ( Amer) Est GFR (Non-Af Amer) BUN/Creatinine Ratio Glucose POC Glucose 138 H Calculated Osmolality Calcium Magnesium 1.8 Total Bilirubin Direct Bilirubin Indirect Bilirubin AST ALT Alkaline Phosphatase Serum Total Protein Albumin Globulin Albumin/Globulin Ratio Blood Type O NEGATIVE Antibody Screen NEGATIVE Crossmatch See Detail Cultures: Cultures 10/16/16 18:32 Blood Culture - Final Peripheral Venipuncture No growth. 10/16/16 18:32 Blood Culture - Final Peripheral Venipuncture No growth. Serology 10/11/16 Range/Units 01:44 Stool Occult Blood Negative (Negative) Exam - Constitutional Vitals: Temp Pulse Resp BP Pulse Ox 97.7 F 73 20 176/79 93 L 10/22/16 11:35 10/22/16 11:35 10/22/16 11:35 10/22/16 11:35 10/22/16 11:35 General appearance: cooperative, morbidly obese, no acute distress - Head Head exam: Present: atraumatic, normal inspection, normocephalic - Eye Eye exam: Present: EOMI, normal appearance, PERRL Pupils: Present: normal accommodation - ENT ENT exam: Present: mucous membranes moist - Neck Neck exam: Present: normal inspection - Respiratory Respiratory exam: Present: CTAB. Absent: rales, respiratory distress, rhonchi, wheezes - Cardiovascular Cardiovascular exam: Present: RRR, +S1, +S2 - GI/Abdominal GI/Abdominal exam: Present: distended (obese), normal bowel sounds, soft. Absent: tenderness Additional comments: Mccarty catheter noted to be draining dark, clear yellow urine - Extremities Exam Extremities exam: Present: pedal edema (1+ BLE). Absent: joint swelling, tenderness - Neurological Exam Neurological exam: Present: alert, oriented X3, no focal deficits - Psychiatric Psychiatric exam: Present: normal affect, normal mood - Skin Skin exam: Present: dry, intact, normal color, warm - Additional findings Additional findings: Powerglide EPIV noted to the LUE with transparent dressing C/D/I. - VTE Documentation of Mechanical Device: Intermittent pneumatic compression device Consult Discharge Plan - Plan Referrals: NO,PCP [Primary Care Provider] - (Patient follows up with ECF PCP) Prescriptions: Ertapenem [INVanz] 500 mg IVPB DAILY 11 Days Ertapenem [INVanz] 500 mg IVPB DAILY #10 vial
[2016-10-22 13:54] LABS: Hepatitis A Antibody IgM Nonreactive (Nonreactive); Hepatitis B Core IgM Nonreactive (Nonreactive); Hepatitis B Surface Antigen Nonreactive (Nonreactive); Hepatitis C Virus Antibody Nonreactive (Nonreactive)
[2016-10-22] MEDS ORDERED: *HR* FentaNYL (PF) 100 MCG/2 ML VIAL ONE (13:57)
[2016-10-22] MEDS ORDERED: Indomethacin 50 MG SUPP.RECT RC ONE (14:41)
--- NOTE | 2016-10-22 15:57 | Anesthesia Evaluation Post Op ---
Date of Encounter: 10/22/16 Time of Encounter: 15:56 - Vital Signs Vital Signs: Vital Signs/O2 Sat/Glucose, Most Current Temp Pulse Resp BP Pulse Ox 10/22/16 15:40 97.5 F L 63 18 165/68 95 10/22/16 15:30 64 18 173/88 94 L 10/22/16 15:20 62 22 175/65 92 L 10/22/16 15:10 97.3 F L 65 22 151/65 90 L 10/22/16 13:24 97.7 F 65 16 139/57 98 - Lungs Lungs: Clear Ascult./Percussion - Airway Airway: Non-obstructed - Cardiovascular Baseline Rhythm - Mental Status Mental Status: Alert & Oriented, Answers Appropriately - Pain Pain Scale: 0 Pain Scale used: Numeric (1 - 10) - Nausea Vomiting Nausea Vomiting: Not Present - Hydration Hydration: Tolerates oral liquids, Mccarty catheter - Discharge PostOp Status: Transfer Patient to floor Anes Supervising Prov Stmt: Pt seen/evaluated, VSS and pt has met criteria for discharge to floor. - MD Mireya
[2016-10-22] MEDS ORDERED: 0.9 % Sodium Chloride 250 ML ONE ×2 (16:11→19:42)
--- NOTE | 2016-10-22 16:23 | Electrocardiograph Report ---
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
[2016-10-22] MEDS ORDERED: Furosemide 20 MG/2 ML VIAL IVP ONE (17:16)
--- NOTE | 2016-10-22 17:26 | Internal Med Progress Note ---
Date of Encounter: 10/22/16 Time of Encounter: 17:24 - Assessment and plan (1) UTI (urinary tract infection) Current Visit: Yes Status: Acute Assessment and plan: Currently on IV Ertapenem for ESBL E coli. Continue through 10/30 Qualifiers: Urinary tract infection type: acute cystitis Hematuria presence: without hematuria Qualified Code(s): N30.00 - Acute cystitis without hematuria (2) Infection due to ESBL-producing Escherichia coli Current Visit: Yes Status: Acute Assessment and plan: As above. (3) Bacteremia, escherichia coli Current Visit: Yes Status: Acute Assessment and plan: Repeat blood cultures negative. (4) Intrahepatic cholestasis Current Visit: Yes Status: Acute Assessment and plan: Pt is s/p ERCP today. Had sphincteromy. Anticipate d/c tomorrow if stable over night. (5) Chronic kidney disease, stage III (moderate) Current Visit: Yes Status: Chronic Assessment and plan: Follow (6) Diabetes mellitus Current Visit: No Status: Chronic Assessment and plan: Following blood sugar Qualifiers: Diabetes mellitus type: type 2 Diabetes mellitus complication status: with kidney complications Diabetes mellitus complication detail: with chronic kidney disease Diabetes mellitus mcfp insulin use: with technician terminal and repeater use Chronic kidney disease stage: stage 3 (moderate) Qualified Code(s): E11.22 - Type 2 diabetes mellitus with diabetic chronic kidney disease; N18.3 - Chronic kidney disease, stage 3 (moderate); Z79.4 - senior care (current) use of insulin (7) Acute metabolic encephalopathy Current Visit: Yes Status: Resolved Assessment and plan: Seems to be doing better today. Will continue supportive care. (8) Sacral decubitus ulcer, stage II Current Visit: Yes Status: Chronic Assessment and plan: Chronic stage II secondary to chronic bed rest and DMII Continue monitoring. (9) Morbid obesity with BMI of 45.0-49.9, adult Current Visit: No Status: Chronic Assessment and plan: Chronic - Subjective Interval history: Ms. Dsouza is currently admitted for acute ESBL e coli UTI and bacteremia. Her LFTs remain elevated and are fluctuating. She remains high risk due to potential for worsening infection and hepatic issues. Ms. Dsouza is back from ERCP. She had sphincterotomy and there was drainage of sludge from gallbladder. She is resting comfortably now. Denies pain. No fever or chills. No nausea. - Constitutional Vitals: Temp Pulse Resp BP Pulse Ox 98.0 F 67 16 178/82 95 10/22/16 16:41 10/22/16 16:41 10/22/16 16:41 10/22/16 16:41 10/22/16 16:41 General appearance: Present: cooperative, morbidly obese, pleasant, answers questions appropriately - Head Head exam: Present: atraumatic, normocephalic - Eye Eye exam: Present: conjuntiva pink - ENT ENT exam: Present: mucous membranes dry - Respiratory Respiratory exam: Present: decreased breath sounds, CTAB. Absent: rhonchi, wheezes - Cardiovascular Cardiovascular exam: Present: RRR. Absent: tachycardia - GI/Abdominal GI/Abdominal exam: Present: soft. Absent: tenderness - Extremities Exam Extremities exam: Present: pedal edema, warm - Neurological Exam Neurological exam: Present: alert, oriented X3 - Skin Skin exam: Present: warm. Absent: rash Internal Medicine: Result - Labs CBC & Chem 7: 10/22/16 04:34 10/22/16 04:34 Labs: Short CBC 10/22/16 Range/Units 04:34 WBC 9.8 (4.3-11.1) K/mcL Hgb 7.2 L (11.5-15.4) g/dL Hct 23.6 L (35.3-44.9) % Plt Count 350 (140-400) K/mcL BMP 10/22/16 04:34 Sodium 139 Potassium 4.7 H Chloride 108 Carbon Dioxide 24 BUN 27 H Creatinine 1.26 H Glucose 160 H Calcium 8.1 L Liver Function 10/22/16 Range/Units 04:34 Total Bilirubin 0.6 (0.2-1.2) mg/dL Direct Bilirubin 0.4 (0.0-0.5) mg/dL AST 31 (5-34) Units/L ALT 31 (0-55) Units/L Alkaline Phosphatase 773 H (38-126) Units/L Albumin 1.8 L (3.5-5.0) g/dL - ABG Interpretation ABG results: ABG ABG pH 7.32 pH Units (7.32-7.45) 10/07/16 15:04 ABG pCO2 57 mmHg (35-45) H 10/07/16 15:04 ABG pO2 108 mmHg (85-104) H 10/07/16 15:04 ABG O2 Saturation 98 % (95-98) 10/07/16 15:04 PT/INR, D-dimer PT 14.5 Seconds (9.4-12.1) H 10/21/16 00:38 - VTE Documentation of Mechanical Device: Intermittent pneumatic compression device Consult Discharge Plan - Plan Referrals: NO,PCP [Primary Care Provider] - (Patient follows up with ECF PCP) Prescriptions: RX: Ertapenem [INVanz] 500 mg IVPB DAILY 11 Days RX: Ertapenem [INVanz] 500 mg IVPB DAILY #10 vial
[2016-10-23] MEDS: Ipratropium/Albuterol Neb 3 ML IH SCH ×2 (04:01→09:55)
[2016-10-23 04:03] LABS: Basophils # 0.1 K/mcL (0.0-0.2); Basophils % 0.5 %; Eosinophils # 0.1 K/mcL (0.0-0.6); Eosinophils % 1.5 %; Hematocrit 31.1 % (35.3-44.9); Immature Granulocytes % 0.4 % (0-4); Lymphocytes # 1.4 K/mcL (0.6-4.6); Lymphocytes % 14.5 %; Mean Corpuscular HGB Conc 31.2 g/dL (31.6-35.5); Mean Corpuscular Hemoglobin 29.6 pg (28.0-33.3); Mean Corpuscular Volume 94.8 fL (83.0-100.0); Mean Platelet Volume 9.1 fL (9.4-12.4); Monocytes # 0.6 K/mcL (0.0-1.3); Monocytes % 6.1 %; Neutrophils # 7.2 K/mcL (1.6-8.9); Platelet Count 349 K/mcL (140-400); Red Blood Count 3.28 M/mcL (3.82-4.97); Red Cell Distribution Width 17.9 % (11.5-14.5)
[2016-10-23 04:12] LABS: Hemoglobin 9.7 g/dL (11.5-15.4)
[2016-10-23 04:22] LABS: Albumin/Globulin Ratio 0.4 (1.1-2.2); Calcium 8.5 mg/dL (8.6-10.8); Total Protein 6.9 g/dL (6.0-8.3)
[2016-10-23 04:51] LABS: Albumin 1.9 g/dL (3.5-5.0)
[2016-10-23] MEDS: Levothyroxine 25 MCG TABLET PO SCH (06:27)
[2016-10-23] MEDS: Insulin LISPRO 300 UNITS/3 ML VIAL SQ SCH ×2 (08:43→11:58)
[2016-10-23] MEDS: Insulin DETEMIR 100 UNIT/ML X5UNITS SQ SCH (08:43)
[2016-10-23] MEDS: Multivit/Ca/Min/Fe/FA 1 TAB TABLET PO SCH (08:52)
[2016-10-23] MEDS: Metoprolol XL (24 HR) Succ 25 MG TAB.ER.24H PO SCH (08:52)
[2016-10-23] MEDS: Loratadine 10 MG TABLET PO SCH (08:52)
[2016-10-23] MEDS: Gabapentin 300 MG CAPSULE PO SCH (08:52)
[2016-10-23] MEDS: cloNIDine HCl 0.1 MG TABLET PO SCH (08:52)
[2016-10-23] MEDS: Isosorbide MONOnitrate (24 HR) 30 MG TAB.ER.24H PO SCH (08:52)
[2016-10-23] MEDS: hydrALAZINE 25 MG TABLET PO SCH (08:52)
[2016-10-23] MEDS: Aspirin 81 MG TAB.CHEW PO SCH (08:53)
[2016-10-23] MEDS ORDERED: Ertapenem 1,000 MG in 0.9 % Sodium Chloride Mini Bag 100 ML IVPB SCH ×2 (09:00→10:00)
--- NOTE | 2016-10-23 09:02 | Internal Med Progress Note ---
Date of Encounter: 10/23/16 Time of Encounter: 09:02 - Assessment and plan (1) Acute metabolic encephalopathy Current Visit: Yes Status: Resolved (2) UTI (urinary tract infection) Current Visit: Yes Status: Acute Qualifiers: Urinary tract infection type: acute cystitis Hematuria presence: without hematuria Qualified Code(s): N30.00 - Acute cystitis without hematuria (3) COPD (chronic obstructive pulmonary disease) Current Visit: No Status: Acute Qualifiers: COPD type: unspecified COPD Qualified Code(s): J44.9 - Chronic obstructive pulmonary disease, unspecified (4) Type 2 diabetes mellitus with diabetic chronic kidney disease Current Visit: Yes Status: Chronic Qualifiers: Diabetes mellitus buttermaker insulin use: with buttermaker use Chronic kidney disease stage: stage 3 (moderate) Qualified Code(s): E11.22 - Type 2 diabetes mellitus with diabetic chronic kidney disease; N18.3 - Chronic kidney disease, stage 3 (moderate); Z79.4 - 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 She reports continued RUQ abdominal pain with nausea. Patient denies fevers, chills, cp, sob. - Constitutional Vitals: Temp Pulse Resp BP Pulse Ox 97.7 F 69 14 152/74 100 10/23/16 07:35 10/23/16 07:35 10/23/16 07:35 10/23/16 07:35 10/23/16 07:35 General appearance: Present: cooperative, morbidly obese, pleasant, answers questions appropriately Internal Medicine: Result - Labs CBC & Chem 7: 10/23/16 03:45 10/23/16 03:45 Labs: Short CBC 10/23/16 Range/Units 03:45 WBC 9.3 (4.3-11.1) K/mcL Hgb 9.7 L D (11.5-15.4) g/dL Hct 31.1 L (35.3-44.9) % Plt Count 349 (140-400) K/mcL Neutrophils # 7.2 (1.6-8.9) K/mcL BMP 10/23/16 03:45 Sodium 140 Potassium 5.0 H Chloride 107 Carbon Dioxide 25 BUN 26 H Creatinine 1.35 H Glucose 104 H Calcium 8.5 L Liver Function 10/23/16 Range/Units 03:45 Total Bilirubin 3.0 H D (0.2-1.2) mg/dL AST 78 H (5-34) Units/L ALT 37 (0-55) Units/L Alkaline Phosphatase 1140 H (38-126) Units/L Albumin 1.9 L (3.5-5.0) g/dL - ABG Interpretation ABG results: ABG ABG pH 7.32 pH Units (7.32-7.45) 10/07/16 15:04 ABG pCO2 57 mmHg (35-45) H 10/07/16 15:04 ABG pO2 108 mmHg (85-104) H 10/07/16 15:04 ABG O2 Saturation 98 % (95-98) 10/07/16 15:04 PT/INR, D-dimer PT 14.5 Seconds (9.4-12.1) H 10/21/16 00:38 - VTE Documentation of Mechanical Device: Intermittent pneumatic compression device Consult Discharge Plan - Plan Referrals: NO,PCP [Primary Care Provider] - (Patient follows up with ECF PCP) Prescriptions: Ertapenem [INVanz] 500 mg IVPB DAILY 11 Days Ertapenem [INVanz] 500 mg IVPB DAILY #10 vial
[2016-10-23] MEDS: Budesonide Neb 0.5 MG/2 ML IH SCH (09:55)
--- NOTE | 2016-10-23 10:47 | Discharge Summary ---
<Fadia Oglesby - Last Filed: 10/23/16 17:04> Date of Encounter: 10/23/16 Time of Encounter: 10:40 - Discharge Diagnosis (1) Acute metabolic encephalopathy Priority: Primary Status: Resolved (2) UTI (urinary tract infection) Priority: Primary Status: Acute Qualifiers: Urinary tract infection type: acute cystitis Hematuria presence: without hematuria Qualified Code(s): N30.00 - Acute cystitis without hematuria (3) COPD (chronic obstructive pulmonary disease) Priority: Secondary Status: Chronic Qualifiers: COPD type: unspecified COPD Qualified Code(s): J44.9 - Chronic obstructive pulmonary disease, unspecified (4) Type 2 diabetes mellitus with diabetic chronic kidney disease Priority: Secondary Status: Chronic Qualifiers: Diabetes mellitus terminal computer operator insulin use: with terminal computer operator use Chronic kidney disease stage: stage 3 (moderate) Qualified Code(s): E11.22 - Type 2 diabetes mellitus with diabetic chronic kidney disease; N18.3 - Chronic kidney disease, stage 3 (moderate); Z79.4 - roasterman (current) use of insulin (5) Sacral decubitus ulcer, stage II Priority: Secondary Status: Chronic (6) Choledocholithiasis Priority: Primary Status: Acute - Discharge Medications Prescriptions: Ertapenem [INVanz] 500 mg IVPB DAILY 7 Days Home Medications: Cholecalciferol (Vitamin D3) [Vitamin D3] 50,000 unit PO QWEEK 05/30/16 [History ] Gabapentin [Neurontin] 300 mg PO BID 05/30/16 [History] Hydralazine HCl 100 mg PO Q8H 05/30/16 [History] Insulin ASPART [NovoLOG] 1 - 5 unit SQ ACHS 05/30/16 [History] Isosorbide MONOnitrate (24 HR) [Imdur] 30 mg PO DAILY 05/30/16 [History] CloNIDine HCl [Clonidine HCl] 0.2 mg PO BID #60 tab 06/04/16 [Rx] Aspirin 81 mg PO DAILY 07/10/16 [History] Insulin DETEMIR [Levemir] 50 unit SQ QAM 07/10/16 [History] Insulin DETEMIR [Levemir] 55 unit SQ HS 07/10/16 [History] Acetaminophen [Tylenol] 650 mg PO Q6HR PRN #0 tablet 07/20/16 [Rx] Ipratropium/Albuterol Neb [Duoneb] 3 ml IH [id number] inhsol 07/20/16 [Rx] Tramadol HCl [Ultram] 50 mg PO QID PRN #10 tab 07/20/16 [Rx] Atorvastatin Calcium [Lipitor] 80 mg PO DAILY 07/31/16 [History] Budesonide/Formoterol 160/4.5 [Symbicort 160/4.5] 2 puff IH BID 07/31/16 [ History] ClonazePAM [Klonopin] 1 mg PO TID PRN 07/31/16 [History] Clopidogrel [Plavix] 75 mg PO DAILY 07/31/16 [History] Levothyroxine [Synthroid] 25 mcg PO DAILY 07/31/16 [History] Loperamide [Imodium] 2 mg PO Q4HR PRN 07/31/16 [History] Pantoprazole Sodium [Protonix] 40 mg PO DAILY 07/31/16 [History] Saline Nasal Raymond [[place] Nasal Raymond] 2 spray NS TID 07/31/16 [History] Tiotropium [Spiriva] 18 mcg IH DAILY 07/31/16 [History] Furosemide [Lasix] 40 mg PO BID #0 08/12/16 [Rx] Lisinopril [Zestril] 5 mg PO DAILY #0 tablet 08/12/16 [Rx] Metoprolol Succinate 25 mg PO DAILY #30 tab.er.24h 08/12/16 [Rx] Spironolactone [Aldactone] 12.5 mg PO DAILY tablet 08/12/16 [Rx] Citalopram [CeleXA] 20 mg PO DAILY 10/07/16 [History] Furosemide [Lasix] 20 mg PO QPM 10/07/16 [History] Loratadine [Claritin] 10 mg PO DAILY 10/07/16 [History] Multivitamin [One Daily Multivitamin] 1 tab PO DAILY 10/07/16 [History] Ertapenem [INVanz] 500 mg IVPB DAILY 7 Days 10/23/16 [Rx] Allergies/Adverse Reactions: Allergies No Known Allergies Allergy (Verified 07/24/16 16:19) Procedures/tests Complete & Pending: Procedures Performed prior 72 hours Category Date Time Status ECG 12 lead ECG [ECG] Routine Y 10/21/16 12:19 Completed Venous Doppler [EV venous imaging UE RT] Routine Y 10/22/16 05:36 Completed Date of admission: 10/07/16 15:58 Primary care physician: PCP NO Consults: 10/08/16 07:37 Consult to Traffic Assistant [CONS] Routine Reason for SW Consult: per notes pt from f 10/08/16 12:19 Consult to Cardiology [CONS] Routine Comment: Consulting Provider: Cardiology Sameera Reason for Consult: possible NSTEMI Call Completed: Yes 10/08/16 15:31 Consult to Speech Therapy [CONS] Routine Comment: Evaluate, develop and implement POC Reason for Consult: difficulty swalloing pills Call Completed: No 10/08/16 16:40 Consult to Gastroenterology [CONS] Routine Consulting Provider: Gastroenterology Sameera Reason for Consult: GI bleed. Call Completed: Yes 10/10/16 08:16 Consult to Invasive Line Access Team [CONS] Routine Reason for Consult: iv atb Line Type: EPIV 10/15/16 16:18 Consult to Gastroenterology [CONS] Routine Consulting Provider: Gastroenterology Sameera Reason for Consult: worsening liver function Call Completed: Yes 10/16/16 17:47 Consult to Infectious Diseases [CONS] Routine Consulting Provider: Infectious Disease Sameera Reason for Consult: ESBL bacteremia 10/07 on Ertepenum Call Completed: Yes 10/17/16 14:31 Consult to Surgery [CONS] Routine Consulting Provider: Artem Cooper Reason for Consult: Acute cholecystitis - MRCP. Time Notified: 14:30 Call Completed: Yes Discharging clinician: Bobby Murray Anticipated date of discharge: 10/23/16 - Patient Status Disposition: Transfer SNF Condition: Fair Functional capacity at discharge: bed bound Overall status at discharge: patient is back to baseline - Discharge Instructions Instructions: Ertapenem (Injection) Follow Up With: NO,PCP [Primary Care Provider] - (Patient follows up with [facility] PCP) Additional Instructions: Follow up with your PCP in 3-5 days. Continue the Ertapenem daily through 10/30 - Diet and Activity Activity: resume usual activities as tolerated Diet: diabetic diet Hospital course: Ms. Dsouza is a 71 year old female who is a resident of [facility] who presented to the ED 10/07/16 with complaints of fever, vomiting and malaise. The patient had confusion upon admission, sepsis, UTI, hyperkalemia, anemia, DM and ARF superimposed on CKDIII. A previous UC from 09/04 grew proteus, which was sensitive to zosyn. The patient was started on zosyn. Her Blood and urine cultures came back positive for ESBL, sensitive to zosyn. The patient was evaluated by cardiology, nephrology, GI, ID and general surgery during her stay. She had drops in her hgb requiring multiple units of PRBCs during admission. She underwent EGD/Cscope with no significant findings. Zosyn was continued until 10/14 when she had an elevation in her liver enzymes. Zosyn, her statin and tramadol were stopped and meropenem was started for coverage. LFTs began trending back down, however her alk phos continued to rise. RUQ US was ordered revealing borderline wall thickening of the gallblader with possible mild cholecystitis and moderate gallbladder sludge with no evidence of cholelithiasis. Alk Phos continued to rise and MRCP was performed which was limited by patient motion but the MRI demonstrated a distended gallbladder with mild wall thickening measuring up to 4 mm. T1 hyperintense material within the gallbladder suggestive of sludge without definitive cholelithiasis was identified. A 6 mm focal area of wall thickening within the gallbladder fundus suggestive of polyp was also described. Pericholecystic fluid was described as increased when compared to the prior CT, however, this fluid may be due to the observed anasarca and fluid overload evident on other radiographs. ID was consulted and recommended switching to ertapenem with IV administration through 10/30, which was 14 days after negative blood cultures. The patient continued to have increasing RUQ abdominal tenderness and elevating alk phos up to 1319. Patient underwent ERCP on 10/22. Choledocholithiasis identified during the ERCP completed by , 10/22/2016. Extraction of a 3 mm Black-appearing stone from the common bile duct is described. A sphincterotomy was performed during the ERCP. There was concern for potential V-fib on telemetry today. Cardiology re-evaluated the patient and discussed the tele strips with EP, Dr. Jean Claude Gunn who confirms it was artificact and not true v-fib. Alk phos was elevated again today, discussed with GI that this is likely secondary to the ERCP yesterday. Patient was discharged back to [facility] with a prescription for Ertapenem 500mg IV daily. She denied cp, sob, abdominal pain on discharge. - Time Spent with Patient Total time spent providing and/or coordinating discharge services: - Constitutional Vitals: Temp Pulse Resp BP Pulse Ox 97.7 F 69 14 152/74 100 10/23/16 07:35 10/23/16 07:35 10/23/16 07:35 10/23/16 07:35 10/23/16 07:35 General appearance: Present: cooperative, morbidly obese, pleasant, answers questions appropriately - Head Head exam: Present: atraumatic, normocephalic - Neck Neck exam general surgery: Present: supple, trachea midline. Absent: lymphadenopathy - Respiratory Respiratory exam: Present: CTAB. Absent: accessory muscle use, rales, rhonchi, wheezes - GI/Abdominal GI/Abdominal exam: Present: normal bowel sounds, soft, no peritoneal signs. Absent: distended, tenderness - Extremities Exam Extremities exam: Present: pedal edema, tenderness, warm, radial pulses palpable and symetrical Additional comments: swelling of right hand/forearm - Neurological Exam Neurological exam: Present: altered, oriented X3. Absent: facial droop, speech deficit - Psychiatric Psychiatric exam: Present: normal affect, normal mood - Skin Skin exam: Present: dry, intact. Absent: diaphoretic, erythema - VTE Documentation of Mechanical Device: Intermittent pneumatic compression device <Bobby Murray - Last Filed: 10/23/16 20:01> - Discharge Diagnosis (1) UTI (urinary tract infection) Status: Acute Qualifiers: Urinary tract infection type: acute cystitis Hematuria presence: without hematuria Qualified Code(s): N30.00 - Acute cystitis without hematuria (2) Infection due to ESBL-producing Escherichia coli Priority: Secondary Status: Acute (3) Bacteremia, escherichia coli Priority: Secondary Status: Acute (4) Intrahepatic cholestasis Priority: Secondary Status: Acute (5) Chronic kidney disease, stage III (moderate) Priority: Secondary Status: Chronic (6) Diabetes mellitus Priority: Secondary Status: Chronic Qualifiers: Diabetes mellitus type: type 2 Diabetes mellitus complication status: with kidney complications Diabetes mellitus complication detail: with chronic kidney disease Diabetes mellitus terminal computer operator insulin use: with custodial use Chronic kidney disease stage: stage 3 (moderate) Qualified Code(s): E11.22 - Type 2 diabetes mellitus with diabetic chronic kidney disease; N18.3 - Chronic kidney disease, stage 3 (moderate); Z79.4 - [facility] (current) use of insulin (7) Acute metabolic encephalopathy Status: Resolved (8) Sacral decubitus ulcer, stage II Status: Chronic (9) Morbid obesity with BMI of 45.0-49.9, adult Status: Chronic Procedures/tests Complete & Pending: Procedures Performed prior 72 hours Category Date Time Status ECG 12 lead ECG [ECG] Routine Y 10/21/16 12:19 Completed Venous Doppler [EV venous imaging UE RT] Routine Y 10/22/16 05:36 Completed Date of admission: 10/07/16 15:58 Primary care physician: PCP NO Consults: 10/08/16 07:37 Consult to Traffic Assistant [CONS] Routine Reason for SW Consult: per notes pt from [facility] 10/08/16 12:19 Consult to Cardiology [CONS] Routine Comment: Consulting Provider: Cardiology Sameera Reason for Consult: possible NSTEMI Call Completed: Yes 10/08/16 15:31 Consult to Speech Therapy [CONS] Routine Comment: Evaluate, develop and implement POC Reason for Consult: difficulty swalloing pills Call Completed: No 10/08/16 16:40 Consult to Gastroenterology [CONS] Routine Consulting Provider: Gastroenterzuelima Brasher Reason for Consult: GI bleed. Call Completed: Yes 10/10/16 08:16 Consult to Invasive Line Access Team [CONS] Routine Reason for Consult: iv atb Line Type: EPIV 10/15/16 16:18 Consult to Gastroenterology [CONS] Routine Consulting Provider: Diane Brasher Reason for Consult: worsening liver function Call Completed: Yes 10/16/16 17:47 Consult to Infectious Diseases [CONS] Routine Consulting Provider: Infectious Disease Sameera Reason for Consult: ESBL bacteremia 10/07 on Ertepenum Call Completed: Yes 10/17/16 14:31 Consult to Surgery [CONS] Routine Consulting Provider: Artem Cooper Reason for Consult: Acute cholecystitis - MRCP. Time Notified: 14:30 Call Completed: Yes 10/23/16 13:30 Consult to Cardiology [CONS] Routine Comment: Consulting Provider: Cardiology Sameera Reason for Consult: Irregular rhythm Time Notified: 13:31 Call Completed: Yes Hospital course: Ms. Dsouza is a 71 year old female - Time Spent with Patient Total time spent providing and/or coordinating discharge services: 44min - Constitutional Vitals: Temp Pulse Resp BP Pulse Ox 97.9 F 70 16 147/78 97 10/23/16 11:31 10/23/16 11:31 10/23/16 11:31 10/23/16 11:31 10/23/16 11:31 - Attending Attestation I examined this patient and my medical decision-making was reviewed with the Resident Physician on 10/23/16. I agree with the documented findings, disposition and treatment plan as described except to the extent set forth below. Ms. Dsouza has had a very prolonged complicated admission. Today she is feeling better and is tolerating a PO diet. She has had some abnormal telemetry and had recheck by cardiology. She is afebrile and vitals stable. Exam Alert. Pleasant Heart reg Lungs clear Abd nontender Plan D/C to SNF today.
[2016-10-23 11:31] VITALS: BP 147/78
--- NOTE | 2016-10-23 11:35 | Infectious Disease Progress No ---
Date of Encounter: 10/23/16 Time of Encounter: 11:32 - Assessment and Plan (1) Sepsis Current Visit: Yes Status: Resolved The patient had two SIRS criteria with PRADEEP and metabolic encaphalopathy on admission. Likely secondary to bacteremia and UTI. Improved. The patient has been afebrile since 10/14/16. Leukocytosis resolved. Blood cultures drawn 10/07/16 were positive 2/2 sets for E. coli ESBL. Repeat blood cultures drawn 10/16/16 are negative x 2 sets. Qualifiers: Sepsis type: Escherichia coli Qualified Code(s): A41.51 - Sepsis due to Escherichia coli [E. coli] (2) Bacteremia Current Visit: Yes Status: Acute Causative organism E. coli ESBL. Source likely UTI. Blood cultures drawn 10/07/16 were positive 2/2 sets. Repeat blood cultures not drawn until 10/16/16 and are negative x 2 sets. The patient has two modified Marmolejo's criteria. No endocarditis stigmata on exam. Low index of suspicion for IE. Treated with 8 days of Zosyn before being switched to Meropenem for two days. Currently on Ertapenem since 10/16/16. Continue Ertapenem 1g IV daily. The patient has likely received adequate antibiotic coverage with Zosyn, however, there is a high rate of resistance development during treatment. Agree with switching to a carbapenem for the rest of treatment. Duration of treatment depends on the clinical picture, but would recommend a total of 14 days from the first set of negative blood cultures. Treat through . Monitor renal function and dose-adjust antibiotics. Powerglide has been placed. (3) UTI (urinary tract infection) Current Visit: Yes Status: Acute Causative organism E. coli ESBL. Mccarty catheter in place was placed upon arrival to the ED. Plan to discontinue prior to discharge. Continue antibiotics as above. Qualifiers: Urinary tract infection type: acute cystitis Hematuria presence: without hematuria Qualified Code(s): N30.00 - Acute cystitis without hematuria (4) ARF (acute renal failure) Current Visit: Yes Status: Resolved Likely secondary to UTI/Sepsis. Improved. Serum creatinine back to baseline. Nephrology consulted and signed off. Monitor renal function and dose-adjust antibiotics. Qualifiers: Acute renal failure type: unspecified Qualified Code(s): N17.9 - Acute kidney failure, unspecified (5) Acute metabolic encephalopathy Current Visit: Yes Status: Resolved Likely secondary to sepsis. Resolved. (6) Elevated LFTs Current Visit: Yes Status: Acute Etiology not entirely clear. Improved over the weekend. GI consulted. RUQ UTS shows gallbladder thickening and sludge, but no definitive cholecystitis. MRCP showed possible acute cholecystitis. General surgery consulted. No surgical intervention needed at this time. Status post ERCP with findings of choledocolithiasis. Status post sphincterotomy and draining of sludge. LFTs a little worse this morning. Discussed with GI PACKAGER MACHINE who states likely secondary to procedure yesterday. Recommends repeating labs a few days to ensure they are trending down. (7) Anemia Current Visit: Yes Status: Acute EGD/C-scope negative for bleeding. Hgb stable around 7. No evidence of active bleeding. Management per the primary team. Qualifiers: Anemia type: unspecified type Qualified Code(s): D64.9 - Anemia, unspecified (8) Hyperkalemia Current Visit: Yes Status: Resolved (9) Hx of coronary artery disease Current Visit: Yes Status: Chronic (10) Chronic kidney disease, stage III (moderate) Current Visit: Yes Status: Chronic (11) Sacral decubitus ulcer, stage II Current Visit: Yes Status: Chronic (12) Type 2 diabetes mellitus with diabetic chronic kidney disease Current Visit: Yes Status: Chronic Qualifiers: Diabetes mellitus termite exterminator helper insulin use: with custodial use Chronic kidney disease stage: stage 3 (moderate) Qualified Code(s): E11.22 - Type 2 diabetes mellitus with diabetic chronic kidney disease; N18.3 - Chronic kidney disease, stage 3 (moderate); Z79.4 - custodial (current) use of insulin - Subjective Interval history: Patient seen and examined. No acute events noted overnight. Patient resting quietly in bed with eyes closed, awakens easily. States she feels better today. Denies fever, chills, or rigors. Denies chest pain, shortness of breath, or cough. Denies nausea, vomiting or diarrhea. Reports she ate breakfast this morning. Denies abdominal pain. Denies oral thrush or new skin lesions. Infect Dis PN-Objective Data - Labs CBC & Chem 7: 10/23/16 03:45 10/23/16 03:45 Labs: Laboratory Results - last 24 hr 10/21/16 10/22/16 10/22/16 20:25 11:24 11:34 WBC RBC Hgb Hct MCV MCH MCHC RDW Plt Count MPV Immature Gran % Seg Neutrophils % Lymphocytes % Monocytes % Eosinophils % Basophils % Neutrophils # Lymphocytes # Monocytes # Eosinophils # Basophils # Sodium Potassium Chloride Carbon Dioxide BUN Creatinine Est GFR ( Amer) Est GFR (Non-Af Amer) BUN/Creatinine Ratio Glucose POC Glucose 199 H 138 H Calculated Osmolality Calcium Magnesium Total Bilirubin AST ALT Alkaline Phosphatase Serum Total Protein Albumin Globulin Albumin/Globulin Ratio Hepatitis A IgM Ab Hep Bs Antigen Hep B Core IgM Ab Hepatitis C Ab Screen Blood Type O NEGATIVE Antibody Screen NEGATIVE Crossmatch See Detail 10/22/16 10/22/16 10/22/16 11:34 11:34 16:22 WBC RBC Hgb Hct MCV MCH MCHC RDW Plt Count MPV Immature Gran % Seg Neutrophils % Lymphocytes % Monocytes % Eosinophils % Basophils % Neutrophils # Lymphocytes # Monocytes # Eosinophils # Basophils # Sodium Potassium Chloride Carbon Dioxide BUN Creatinine Est GFR ( Amer) Est GFR (Non-Af Amer) BUN/Creatinine Ratio Glucose POC Glucose 122 H Calculated Osmolality Calcium Magnesium 1.8 Total Bilirubin AST ALT Alkaline Phosphatase Serum Total Protein Albumin Globulin Albumin/Globulin Ratio Hepatitis A IgM Ab Nonreactive Hep Bs Antigen Nonreactive Hep B Core IgM Ab Nonreactive Hepatitis C Ab Screen Nonreactive Blood Type Antibody Screen Crossmatch 10/23/16 10/23/16 03:45 03:45 WBC 9.3 RBC 3.28 L Hgb 9.7 L D Hct 31.1 L MCV 94.8 MCH 29.6 MCHC 31.2 L RDW 17.9 H Plt Count 349 MPV 9.1 L Immature Gran % 0.4 Seg Neutrophils % 77.0 Lymphocytes % 14.5 Monocytes % 6.1 Eosinophils % 1.5 Basophils % 0.5 Neutrophils # 7.2 Lymphocytes # 1.4 Monocytes # 0.6 Eosinophils # 0.1 Basophils # 0.1 Sodium 140 Potassium 5.0 H Chloride 107 Carbon Dioxide 25 BUN 26 H Creatinine 1.35 H Est GFR ( Amer) 47 L Est GFR (Non-Af Amer) 39 L BUN/Creatinine Ratio 19 Glucose 104 H POC Glucose Calculated Osmolality 295 Calcium 8.5 L Magnesium Total Bilirubin 3.0 H D AST 78 H ALT 37 Alkaline Phosphatase 1140 H Serum Total Protein 6.9 Albumin 1.9 L Globulin 5.0 H Albumin/Globulin Ratio 0.4 L Hepatitis A IgM Ab Hep Bs Antigen Hep B Core IgM Ab Hepatitis C Ab Screen Blood Type Antibody Screen Crossmatch Cultures: Cultures 10/16/16 18:32 Blood Culture - Final Peripheral Venipuncture No growth. 10/16/16 18:32 Blood Culture - Final Peripheral Venipuncture No growth. Serology 10/22/16 10/11/16 Range/Units 11:34 01:44 Stool Occult Blood Negative (Negative) Hepatitis A IgM Ab Nonreactive (Nonreactive) Hep Bs Antigen Nonreactive (Nonreactive) Hep B Core IgM Ab Nonreactive (Nonreactive) Hepatitis C Ab Screen Nonreactive (Nonreactive) Exam - Constitutional Vitals: Temp Pulse Resp BP Pulse Ox 97.9 F 70 16 147/78 97 10/23/16 11:31 10/23/16 11:31 10/23/16 11:31 10/23/16 11:31 10/23/16 11:31 General appearance: cooperative, morbidly obese, no acute distress - Head Head exam: Present: atraumatic, normal inspection, normocephalic - Eye Eye exam: Present: EOMI, normal appearance, PERRL Pupils: Present: normal accommodation - ENT ENT exam: Present: mucous membranes moist - Neck Neck exam: Present: normal inspection - Respiratory Respiratory exam: Present: CTAB. Absent: rales, respiratory distress, rhonchi, wheezes - Cardiovascular Cardiovascular exam: Present: RRR, +S1, +S2 - GI/Abdominal GI/Abdominal exam: Present: distended (obese), normal bowel sounds, soft. Absent: tenderness - Extremities Exam Extremities exam: Present: pedal edema (2+ BLE), tenderness (RLE). Absent: joint swelling - Neurological Exam Neurological exam: Present: alert, oriented X3, no focal deficits - Psychiatric Psychiatric exam: Present: normal affect, normal mood - Skin Skin exam: Present: dry, intact, normal color, warm - Additional findings Additional findings: Powerglide EPIV noted to the LUE with transparent dressing C/D/I. - VTE Documentation of Mechanical Device: Intermittent pneumatic compression device Consult Discharge Plan - Plan Instructions: Ertapenem (Injection) Additional Instructions: Follow up with your PCP in 3-5 days. Continue the Ertapenem daily through 10/30 Referrals: NO,PCP [Primary Care Provider] - (Patient follows up with [facility] PCP) Prescriptions: Ertapenem [INVanz] 500 mg IVPB DAILY 7 Days
--- NOTE | 2016-10-23 12:52 | Venous Imaging Report ---
UE Venous Duplex Patient Name:Violeta Dsouza Order Number:[id number] Procedure Date:10/22/2016 Date:6Age:71 yrs Gender:Female Location:[facility] Room #: 2A31 Enrollment Counselor:Barb Paul Referring MD:Kade Mccall MD header up:None Reading MD:Rick Browne MD Primary Indications:Increased edema in right UE Secondary Indications: Risk Factors Yes/No Anticoagulants Impressions: Normal right upper extremity deep and superficial venous exam. Normal contralateral subclavian vein. Findings Prior Study: No prior study available for comparison. Upper Extremity Venous Duplex Side Vein Compress Spontaneous Flow Augment Right Jugular Normal Yes Phasic Yes Right Subclavian Normal Yes Phasic Yes Right Axillary Normal Yes Phasic Yes Right Brachial Normal Yes Phasic Yes Right Cephalic Normal Yes Phasic Yes Right Basilic Normal Yes Phasic Yes Right Radial Normal Yes Phasic Yes Right Ulnar Normal Yes Phasic Yes Left Subclavian Normal Yes Phasic Yes Updated by Rick Browne MD on 10/23/2016 12:45:21 PM electronically signed on 10/23/2016 12:45:35 PM with status of Final
--- NOTE | 2016-10-23 13:34 | Cardiology Progress Note ---
Date of Encounter: 10/23/16 Time of Encounter: 13:33 Assessment and Plan (1) Abnormal heart rhythm Current Visit: Yes Status: Ruled-out Reconsulted for concern of V-Fib on telemetry. Strips reviewed with EP, Dr. Jean Claude Gunn and confirms this is artifact, not true V-Fib. Pt denies any cardiac symptoms--denies chest pain, dizziness, dyspnea, lightheadedness or syncope. Peak troponin during stay 0.93 thought to be secondary to demand ischemia detailed in prior cardio consult/progress note. Echo during stay EF 55%, preserved. K 5.0, Mag 1.8. No further cardiac work-up warranted. Cardiology is signing off. Reconsult PRN. Qualifiers: Arrhythmia type: unspecified cardiac arrhythmia Qualified Code(s): I49.9 - Cardiac arrhythmia, unspecified Discussion w patient/family: The assessment and plan as outlined above was discussed with the patient and/or family members who expressed understanding and agreement. All questions were answered. Thank you for involving us in the care of your patient. Please call with any questions. I have discussed all the above with Dr. Jean Claude Gunn. Subjective Principal diagnosis: elevated troponin, sepsis, PRADEEP, Anemia Interval history: Cardiology reconsulted for concern of V-Fib/VT on telemetry today. Ms. Dsouza is currently admitted for acute ESBL e coli UTI and bacteremia. She is s/p ERCP. She had sphincterotomy and there was drainage of sludge from gallbladder. Pt denies any chest pain, dyspnea, syncope, dizziness or lightheadedness. No known hx of CAD. Objective Vital Signs, Last 4 Hours Temp Pulse Resp BP Pulse Ox 10/23/16 11:31 97.9 F 70 16 147/78 97 Vital Signs Temp Pulse Resp BP Pulse Ox 10/23/16 11:31 97.9 F 70 16 147/78 97 10/23/16 07:35 97.7 F 69 14 152/74 100 10/23/16 04:02 13 100 10/23/16 02:53 97.4 F L 65 15 148/74 100 10/23/16 00:10 97.6 F 69 16 144/66 98 10/22/16 22:38 99 10/22/16 22:36 18 99 10/22/16 22:18 98.0 F 70 16 164/62 98 10/22/16 19:58 97.7 F 73 14 176/62 98 10/22/16 19:47 97.9 F 66 14 179/79 98 10/22/16 19:00 97.4 F L 69 14 183/78 98 10/22/16 18:47 97.4 F L 69 14 183/78 98 10/22/16 17:45 98 F 69 12 174/82 96 10/22/16 17:15 98.1 F 70 16 172/84 96 10/22/16 16:45 98.0 F 67 16 174/83 96 10/22/16 16:41 98.0 F 67 16 178/82 95 10/22/16 16:30 98.0 F 67 16 178/82 96 10/22/16 16:26 97.7 F 66 16 173/81 95 10/22/16 16:20 98.0 F 69 16 176/83 96 10/22/16 16:09 18 98 10/22/16 16:05 98.0 F 66 16 181/86 96 10/22/16 15:40 97.5 F L 63 18 165/68 95 10/22/16 15:30 64 18 173/88 94 L 10/22/16 15:20 62 22 175/65 92 L 10/22/16 15:10 97.3 F L 65 22 151/65 90 L Intake and Output 10/22/16 10/23/16 10/23/16 23:59 07:59 15:59 Intake Total 1140 / 1140 100 / 100 Output Total 350 / 350 250 / 250 Balance 790 / 790 -150 / -150 Intake: Oral 240 / 240 100 / 100 Blood Product 900 / 900 Rbcs Leuko Poor As-1 500 / 500 Unit [id number] Rbcs Leuko Poor As-1 400 / 400 Unit [id number] Output: Urine 0 / 0 Catheter 350 / 350 250 / 250 Other: Stool Size Smear Stool Color Brown # Urine Diapers 1 # Bowel Movement Diapers 1 Weight 121.5 kg Blood Glucose* 107 Patient Weight 10/23/16 23:59 Weight 121.5 kg General: Conversant, No Apparent Distress HEENT: Atraumatic, Normocephaly, Mucus Membranes Moist Neck: No JVD, Normal carotid pulses Cardiac: Reg Rate and Rhythm, Normal S1 and S2, No Murmur Lungs: Normal Breath Sounds, No Wheeze, Rales, Rhonchi Neuro: Alert and responsive, No focal deficits noted Abdomen: Soft, Non-Tender Skin: No rashes noted on visualized skin Musculoskeletal: No Chest Wall Tenderness Extremities: No Clubbing, No Cyanosis, No Edema, Normal Pulses Results 10/23/16 03:45 10/23/16 03:45 Lab Results 10/23/16 10/23/16 03:45 03:45 WBC 9.3 Hgb 9.7 L D Hct 31.1 L Plt Count 349 Sodium 140 Potassium 5.0 H Chloride 107 Carbon Dioxide 25 BUN 26 H Creatinine 1.35 H Glucose 104 H Calcium 8.5 L Total Bilirubin 3.0 H D AST 78 H ALT 37 Alkaline Phosphatase 1140 H Short CBC 10/23/16 Range/Units 03:45 WBC 9.3 (4.3-11.1) K/mcL Hgb 9.7 L D (11.5-15.4) g/dL Hct 31.1 L (35.3-44.9) % Plt Count 349 (140-400) K/mcL Neutrophils # 7.2 (1.6-8.9) K/mcL BMP 10/23/16 Range/Units 03:45 Sodium 140 (136-145) mEq/L Potassium 5.0 H (3.5-4.5) mEq/L Chloride 107 (98-109) mEq/L Carbon Dioxide 25 (19-29) mEq/L BUN 26 H (7-20) mg/dL Creatinine 1.35 H (0.57-1.11) mg/dL Glucose 104 H (70-99) mg/dL Calcium 8.5 L (8.6-10.8) mg/dL Liver Function 10/23/16 Range/Units 03:45 Total Bilirubin 3.0 H D (0.2-1.2) mg/dL AST 78 H (5-34) Units/L ALT 37 (0-55) Units/L Alkaline Phosphatase 1140 H (38-126) Units/L Albumin 1.9 L (3.5-5.0) g/dL Active Medications Acetaminophen (Tylenol) 650 mg PO Q6HR PRN PRN Reason: Mild Pain (1-3) Stop: 04/08/17 14:22 Last Admin: 10/23/16 14:13 Dose: 650 mg Albuterol/Ipratropium (Duoneb) 3 ml IH [id number] BELLE PRN Reason: Protocol Stop: 04/08/17 16:01 Last Admin: 10/23/16 09:55 Dose: 3 ml Aspirin (Aspirin) 81 mg PO DAILY [facility] Stop: 04/09/17 09:01 Last Admin: 10/23/16 08:53 Dose: 81 mg Budesonide (Pulmicort Neb) 0.5 mg IH BIDR [facility] Stop: 04/09/17 22:01 Last Admin: 10/23/16 09:55 Dose: 0.5 mg Citalopram Hydrobromide (Celexa) 20 mg PO DAILY [facility] Stop: 04/09/17 09:01 Last Admin: 10/23/16 08:52 Dose: 20 mg Clonidine HCl (Clonidine Hcl) 0.1 mg PO DAILY [facility] Stop: 04/10/17 09:01 Last Admin: 10/23/16 08:52 Dose: 0.1 mg Dextrose/Water (Dextrose 50% (Syg)) 25 ml IVP AD PRN PRN Reason: Hypoglycemia Stop: 04/08/17 14:32 Last Admin: 10/16/16 16:49 Dose: 25 ml Gabapentin (Neurontin) 300 mg PO DAILY [facility] Stop: 04/10/17 09:01 Last Admin: 10/23/16 08:52 Dose: 300 mg Glucagon (Glucagen) 1 mg IM ONCE PRN PRN Reason: Hypoglycemia Stop: 04/08/17 14:32 Glucose (Gluctose) 15 gm PO ONCE PRN PRN Reason: Hypoglycemia Stop: 04/08/17 14:32 Glucose (Gluctose) 30 gm PO ONCE PRN PRN Reason: Hypoglycemia Stop: 04/08/17 14:32 Hydralazine HCl (Hydralazine) 25 mg PO BID [facility] Stop: 04/09/17 21:01 Last Admin: 10/23/16 08:52 Dose: 25 mg Hydralazine HCl (Hydralazine) 10 mg IVP Q4HR PRN PRN Reason: Hypertension SBP > 160 Stop: 04/24/17 00:01 Dextrose (Dextrose 5%) 1,000 mls @ 100 mls/hr IV CONT PRN PRN Reason: HYPOGLYCEMIA Stop: 04/08/17 14:32 Ertapenem 1,000 mg/ Sodium (Chloride) 100 mls @ 100 mls/hr IVPB DAILY [facility] Stop: 04/21/17 09:01 Last Admin: 10/23/16 09:24 Dose: 100 mls/hr Insulin Detemir (Levemir) 12 unit SQ BID [facility] Stop: 04/18/17 21:01 Last Admin: 10/23/16 08:43 Dose: Not Given Insulin Human Lispro (Humalog) 0 units SQ HS [facility] PRN Reason: Protocol Stop: 04/08/17 21:01 Last Admin: 10/22/16 21:21 Dose: Not Given Insulin Human Lispro (Humalog) 0 units SQ TIDAC [facility] PRN Reason: Protocol Stop: 04/08/17 16:31 Last Admin: 10/23/16 11:58 Dose: Not Given Isosorbide Mononitrate (Imdur) 30 mg PO DAILY [facility] Stop: 04/09/17 09:01 Last Admin: 10/23/16 08:52 Dose: 30 mg Levothyroxine Sodium (Synthroid) 25 mcg PO 0630 [facility] Stop: 04/09/17 06:31 Last Admin: 10/23/16 06:27 Dose: 25 mcg Loratadine (Claritin) 10 mg PO DAILY [facility] PRN Reason: Protocol Stop: 04/09/17 09:01 Last Admin: 10/23/16 08:52 Dose: 10 mg Metoprolol Succinate (Toprol Xl) 25 mg PO DAILY [facility] Stop: 04/09/17 09:01 Last Admin: 10/23/16 08:52 Dose: 25 mg Multivitamins/Calcium (Thera M Plus) 1 tab PO DAILY [facility] Stop: 04/09/17 09:01 Last Admin: 10/23/16 08:52 Dose: 1 tab Naloxone HCl (Narcan) 0.4 mg IVP Q2MIN PRN PRN Reason: Opioid Reversal Stop: 04/08/17 14:26 Omeprazole (Prilosec) 20 mg PO 0730 [facility] Stop: 04/09/17 07:31 Last Admin: 10/23/16 06:27 Dose: 20 mg Ondansetron HCl (Zofran) 4 mg IVP Q8HR PRN PRN Reason: Nausea And Vomiting Stop: 04/08/17 14:26 Last Admin: 10/13/16 13:10 Dose: 4 mg - Imaging and Cardiology Echo: report reviewed (EF 55% 10/2016) - EKG Interpretation EKG results cardiology: other (24 hour tele AVG HR 66, no clear evidence of any arrhythmias. Artifact noted.) - VTE Documentation of Mechanical Device: Intermittent pneumatic compression device Consult Discharge Plan - Plan Instructions: Ertapenem (Injection) Additional Instructions: Follow up with your PCP in 3-5 days. Continue the Ertapenem daily through 10/30 Referrals: NO,PCP [Primary Care Provider] - (Patient follows up with F PCP) Prescriptions: Ertapenem [INVanz] 500 mg IVPB DAILY 7 Days
[2016-10-23] MEDS: Acetaminophen 325 MG TABLET PO PRN (14:13)
[2016-10-23 14:54] LABS: ANA IgG by ELISA NONE DETECTED (None Detected)
--- NOTE | 2016-10-23 15:16 | General Surgery Progress Note ---
Date of Encounter: 10/23/16 Time of Encounter: 15:07 Subjective Narrative: General Surgery: Since the patient was seen, 10/17/16, patient has had recurrent episodes hyperbilirubinemia interspersed by normal bilirubin levels, along with elevated AST and alkaline phosphatase. ALT has remained within normal limits since 10/20/16. The etiology for the fluctuation of these LFTs appears to be related to choledocholithiasis identified during the ERCP completed by , 10/22/2016. Extraction of a 3 mm Black-appearing stone from the common bile duct is described. A sphincterotomy was performed during the ERCP. The question remains whether the benefits of cholecystectomy outweigh the risks. Objective Vital Signs - Last 8 Hours Temp Pulse Resp BP Pulse Ox 10/23/16 11:31 97.9 F 70 16 147/78 97 10/23/16 09:55 18 100 10/23/16 07:35 97.7 F 69 14 152/74 100 Intake and Output 10/22/16 10/23/16 10/23/16 23:59 07:59 15:59 Intake Total 1140 / 1140 100 / 100 Output Total 350 / 350 250 / 250 Balance 790 / 790 -150 / -150 Intake: Oral 240 / 240 100 / 100 Blood Product 900 / 900 Rbcs Leuko Poor As-1 500 / 500 Unit [id number] Rbcs Leuko Poor As-1 400 / 400 Unit [id number] Output: Urine 0 / 0 Catheter 350 / 350 250 / 250 Other: Stool Size Smear Stool Color Brown # Urine Diapers 1 # Bowel Movement Diapers 1 Weight 121.5 kg Blood Glucose* 107 Patient Weight 10/23/16 23:59 Weight 121.5 kg - Labs 10/23/16 03:45 10/23/16 03:45 Diabetes panel 10/23/16 Range/Units 03:45 Sodium 140 (136-145) mEq/L Potassium 5.0 H (3.5-4.5) mEq/L Chloride 107 (98-109) mEq/L Carbon Dioxide 25 (19-29) mEq/L BUN 26 H (7-20) mg/dL Creatinine 1.35 H (0.57-1.11) mg/dL Glucose 104 H (70-99) mg/dL Calcium 8.5 L (8.6-10.8) mg/dL AST 78 H (5-34) Units/L ALT 37 (0-55) Units/L Alkaline Phosphatase 1140 H (38-126) Units/L Albumin 1.9 L (3.5-5.0) g/dL Calcium panel 10/23/16 Range/Units 03:45 Calcium 8.5 L (8.6-10.8) mg/dL Albumin 1.9 L (3.5-5.0) g/dL Pituitary panel 10/23/16 Range/Units 03:45 Sodium 140 (136-145) mEq/L Potassium 5.0 H (3.5-4.5) mEq/L Chloride 107 (98-109) mEq/L Carbon Dioxide 25 (19-29) mEq/L BUN 26 H (7-20) mg/dL Creatinine 1.35 H (0.57-1.11) mg/dL Glucose 104 H (70-99) mg/dL Calcium 8.5 L (8.6-10.8) mg/dL Adrenal panel 10/23/16 Range/Units 03:45 Sodium 140 (136-145) mEq/L Potassium 5.0 H (3.5-4.5) mEq/L Chloride 107 (98-109) mEq/L Carbon Dioxide 25 (19-29) mEq/L BUN 26 H (7-20) mg/dL Creatinine 1.35 H (0.57-1.11) mg/dL Glucose 104 H (70-99) mg/dL Calcium 8.5 L (8.6-10.8) mg/dL Total Bilirubin 3.0 H D (0.2-1.2) mg/dL AST 78 H (5-34) Units/L ALT 37 (0-55) Units/L Alkaline Phosphatase 1140 H (38-126) Units/L Albumin 1.9 L (3.5-5.0) g/dL - VTE Documentation of Mechanical Device: Intermittent pneumatic compression device Consult Discharge Plan - Plan Instructions: Ertapenem (Injection) Additional Instructions: Follow up with your PCP in 3-5 days. Continue the Ertapenem daily through 10/30 Referrals: NO,PCP [Primary Care Provider] - (Patient follows up with [facility] PCP) Prescriptions: Ertapenem [INVanz] 500 mg IVPB DAILY 7 Days
== END 2016-10-23 15:14 | DRG 871 ==
LOC: 2ANU 09:44 → EMEROO 09:44 → 2ANU 12:00 → SUATTDRO 15:58
PROVIDERS: ADMIT Internal Medicine; ATTEND Internal Medicine
PROC: ENDOEBX (2016-10-11 13:30)

== ENCOUNTER 2016-11-30 01:23 | Inpatient (IN) ==
--- NOTE | 2016-11-30 02:13 | Emergency Department Note ---
Disposition Clinical Impression: Hyperkalemia, Elevated d-dimer, Hemoptysis UTI (urinary tract infection) Qualifiers: Urinary tract infection type: site unspecified Hematuria presence: without hematuria Qualified Code(s): N39.0 - Urinary tract infection, site not specified Disposition: Admitted As Inpatient Condition: Good Time of Disposition: 04:03 Chest Pain HPI - General Chief Complaint: ED General Medical Stated Complaint: coughed up blood clot Time Seen by Provider: 11/30/16 02:08 Source: patient Limitations: no limitations Vital Signs Reviewed: Yes Nursing Notes Reviewed: Yes - History of Present Illness HPI Narrative: 71 year old female from detention states that she woke up this morning and coughed up sputum that appeared to be a blood clot or sputum that was blood tinged. Cici states that this happened a few years ago and that it was secondary to sinusitis. Patinet is expeiencing mid sternal chest pain without radiation or nausea of vomitting. Patient is a poor historian. She states that her right leg is always chronically swollen than her left. She has immobile at the detention because of a chronic broken right knee. no HX of PEs or Dvts or [place]. She does thave a history of strokes. Severity scale (1-10): 9 - Related Data Home Medications Medication Instructions Recorded Confirmed Cholecalciferol (Vitamin D3) 50,000 unit PO QWEEK 05/30/16 10/07/16 [Vitamin D3] Gabapentin [Neurontin] 300 mg PO BID 05/30/16 10/07/16 Hydralazine HCl 100 mg PO Q8H 05/30/16 10/07/16 Insulin ASPART [NovoLOG] 1 - 5 unit SQ ACHS 05/30/16 10/07/16 Isosorbide MONOnitrate (24 HR) 30 mg PO DAILY 05/30/16 10/07/16 [Imdur] Aspirin 81 mg PO DAILY 07/10/16 10/07/16 Insulin DETEMIR [Levemir] 50 unit SQ QAM 07/10/16 10/07/16 Insulin DETEMIR [Levemir] 55 unit SQ HS 07/10/16 10/07/16 Atorvastatin Calcium [Lipitor] 80 mg PO DAILY 07/31/16 10/07/16 Budesonide/Formoterol 160/4.5 2 puff IH BID 07/31/16 10/07/16 [Symbicort 160/4.5] ClonazePAM [Klonopin] 1 mg PO TID PRN 07/31/16 10/07/16 Clopidogrel [Plavix] 75 mg PO DAILY 07/31/16 10/07/16 Levothyroxine [Synthroid] 25 mcg PO DAILY 07/31/16 10/07/16 Loperamide [Imodium] 2 mg PO Q4HR PRN 07/31/16 10/07/16 Pantoprazole Sodium [Protonix] 40 mg PO DAILY 07/31/16 10/07/16 Saline Nasal [place] [[place] Nasal 2 spray NS TID 07/31/16 10/07/16 [place]] Tiotropium [Spiriva] 18 mcg IH DAILY 07/31/16 10/07/16 Citalopram [CeleXA] 20 mg PO DAILY 10/07/16 10/07/16 Furosemide [Lasix] 20 mg PO QPM 10/07/16 10/07/16 Loratadine [Claritin] 10 mg PO DAILY 10/07/16 10/07/16 Multivitamin [One Daily 1 tab PO DAILY 10/07/16 10/07/16 Multivitamin] Previous Rx's Medication Instructions Recorded CloNIDine HCl [Clonidine HCl] 0.2 mg PO BID #60 tab 06/04/16 Acetaminophen [Tylenol] 650 mg PO Q6HR PRN #0 tablet 07/20/16 Ipratropium/Albuterol Neb [Duoneb] 3 ml IH [id number] inhsol 07/20/16 Tramadol HCl [Ultram] 50 mg PO QID PRN #10 tab 07/20/16 Furosemide [Lasix] 40 mg PO BID #0 08/12/16 Lisinopril [Zestril] 5 mg PO DAILY #0 tablet 08/12/16 Metoprolol Succinate 25 mg PO DAILY #30 tab.er.24h 08/12/16 Spironolactone [Aldactone] 12.5 mg PO DAILY tablet 08/12/16 Ertapenem [INVanz] 500 mg IVPB DAILY 7 Days 10/23/16 Allergies Allergy/AdvReac Type Severity Reaction Status Date / Time No Known Allergies Allergy Verified 07/24/16 16:19 Constitutional: Denies: fever, chills, weakness, weight change Eyes: Denies: eye pain, eye discharge, vision change ENT ED: Denies: ear pain, throat pain, dental pain, hearing loss, epistaxis, congestion, dysphagia Cardiovascular: Reports: chest pain. Denies: palpitations, dyspnea on exertion , edema, syncope Respiratory: Reports: cough. Denies: dyspnea, wheezes, hemoptysis, stridor Gastrointestinal: Denies: abdominal pain, nausea, vomiting, diarrhea, constipation, hematemesis, melena, hematochezia Genitourinary: Denies: dysuria, frequency, hematuria, discharge Musculoskeletal: Denies: back pain, neck pain, arthralgia, myalgia Integumentary: Denies: rash, abrasion, lesions Neurological: Denies: headache, weakness, numbness, paresthesias, confusion, abnormal gait, vertigo Psychiatric: Denies: anxiety, depression, suicidal thoughts, homicidal thoughts , auditory hallucinations, visual hallucinations Endocrine: Denies: fatigue Hematological/Lymphatic: Denies: easy bleeding, easy bruising Allergic/Immunologic: Denies: facial swelling, urticaria Chest Pain PMH - Past Medical History Medical history: Reports: asthma, CHF, COPD, CVA, diabetes, hypertension, renal disease, other Surgical history: Reports: no surgical history Psychiatric history: Reports: no psych history ELECTRICAL CAD TECHNICIAN history: Reports: no ELECTRICAL CAD TECHNICIAN history - Social History Smoking Status: Never smoker Alcohol use: Reports: none Drug use: Reports: none Physical Exam - General Limitations: no limitations General appearance: alert, in no apparent distress, obese - Head Head exam: atraumatic, normocephalic, normal inspection - Eye Eye exam: Present: normal appearance, PERRL, EOMI - Expanded Eye Exam Pupils: Left: reactive - ENT ENT exam: normal exam, normal oropharynx, mucous membranes moist - Expanded ENT Exam External ear exam: Present: normal external inspection Mouth exam: Present: normal external inspection Teeth exam: Present: normal inspection Throat exam: Present: normal inspection - Neck Neck exam: Present: normal inspection, full ROM, trachea midline - Chest Chest inspection: Present: normal inspection, symmetric chest wall rise - Respiratory Respiratory exam: Present: normal lung sounds bilaterally - Cardiovascular Cardiovascular exam: Present: regular rate, normal rhythm, normal heart sounds - Abdominal Exam Abdominal exam: Present: soft, Non-Tender. Absent: tenderness, distention, guarding, rebound, rigidity - Extremities Exam Extremities exam: Present: normal inspection, full ROM. Absent: tenderness, pedal edema - Expanded Upper Extremity Exam Shoulder exam: Present: normal inspection, full ROM Arm exam: Present: normal inspection, full ROM Elbow exam: Present: normal inspection, full ROM Forearm/Wrist exam: Present: normal inspection, full ROM Hand exam: Present: normal inspection, full ROM Vascular exam: Normal: capillary refill, radial pulse - Expanded Lower Extremity Exam Hip/Pelvis exam: Present: normal inspection, full ROM Upper leg exam: Present: normal inspection, full ROM Knee exam: Present: normal inspection, full ROM Lower leg exam: Present: normal inspection, full ROM, other (chronically swollen right leg not changed from baseline to patients knowledge) Ankle exam: Present: normal inspection, full ROM Foot/toe exam: Present: normal inspection, full ROM Neurovascular/Tendon exam: Absent: motor deficit, sensory deficit, tendon deficit - Back Exam Back exam: Present: normal inspection, full ROM. Absent: tenderness - Neurological Exam Neurological exam: Present: alert, oriented X3 - Expanded Neurological Exam Patient oriented to: Present: person, place, time Coma Scale Eye Opening: Spontaneous Coma Scale Motor Response: Obeys Commands Coma Scale Verbal Response: Oriented Coma Scale Total: 15 - Psychiatric Psychiatric exam: Present: normal affect, normal mood - Skin Skin exam: Present: warm, dry, intact, normal color Course Course Narrative: we will do a cardaic workup and rule out PE with CTA chest secondary to hemoptysis - Reevaluation(s) Reevaluation #1: patient has hyperkalemia we will start the hyperkalemia treatment now and admit to medicine Time: 03:30 - Consultations Consultation #1: discussed case with Dr. Chacon and he accepts patient to his service. Time: 04:01 Vital Signs Temperature 97.8 F 11/30/16 01:24 Pulse Rate 56 11/30/16 01:24 Respiratory Rate 16 11/30/16 01:24 Blood Pressure 132/58 11/30/16 01:24 O2 Sat by Pulse Oximetry 99 11/30/16 01:24 Temperature 97.4 F L 11/30/16 06:46 Pulse Rate 78 11/30/16 06:46 Respiratory Rate 18 11/30/16 06:46 Blood Pressure 134/74 11/30/16 06:46 O2 Sat by Pulse Oximetry 98 11/30/16 07:09 Oxygen Delivery Oxygen Delivery Nasal Cannula Chest Pain - Lab Data Result diagrams: 11/30/16 05:58 11/30/16 05:58 Lab Results 11/30/16 11/30/16 11/30/16 Range/Units 02:30 02:30 02:30 WBC (4.3-11.1) K/mcL RBC (3.82-4.97) M/mcL Hgb (11.5-15.4) g/dL Hct (35.3-44.9) % MCV (83.0-100.0) fL MCH (28.0-33.3) pg MCHC (31.6-35.5) g/dL RDW (11.5-14.5) % Plt Count (140-400) K/mcL MPV (9.4-12.4) fL Immature Gran % (0-4) % Seg Neutrophils % % Lymphocytes % % Monocytes % % Eosinophils % % Basophils % % Neutrophils # (1.6-8.9) K/mcL Lymphocytes # (0.6-4.6) K/mcL Monocytes # (0.0-1.3) K/mcL Eosinophils # (0.0-0.6) K/mcL Basophils # (0.0-0.2) K/mcL Immature Plt Fraction (1.1-6.1) % PT 13.3 H (9.4-12.1) Seconds INR 1.2 APTT 30.7 (26.0-36.0) Seconds D-Dimer 3305 H (0-500) ng/mLFEU Sodium (136-145) mEq/L Potassium (3.5-4.5) mEq/L Chloride (98-109) mEq/L Carbon Dioxide (19-29) mEq/L BUN (7-20) mg/dL Creatinine (0.57-1.11) mg/dL Est GFR ( Amer) (> 60) Est GFR (Non-Af Amer) (> 60) BUN/Creatinine Ratio (6-26) Glucose (70-99) mg/dL Calculated Osmolality (280-300) Calcium (8.6-10.8) mg/dL Total Bilirubin 0.4 (0.2-1.2) mg/dL Direct Bilirubin 0.3 (0.0-0.5) mg/dL Indirect Bilirubin 0.1 (0.0-1.2) mg/dL AST 48 H (5-34) Units/L ALT 24 (0-55) Units/L Alkaline Phosphatase 162 H (38-126) Units/L Troponin I (0-0.03) ng/mL B-Natriuretic Peptide 1179 H (0-100) pg/mL Serum Total Protein 6.7 (6.0-8.3) g/dL Albumin 2.0 L (3.5-5.0) g/dL Globulin 4.7 H (2.4-3.5) g/dL Albumin/Globulin Ratio 0.4 L (1.1-2.2) Lipase (8-78) Units/L Urine Color (Yellow) Urine Clarity (Clear) Urine pH (5.0-8.0) pH Units Ur Specific [place] (1.010-1.025) Urine Protein (Neg-Trace) mg/dL Urine Glucose (UA) (Normal) mg/dL Urine Ketones (Negative) mg/dL Urine Blood (Negative) Urine Nitrite (Negative) Urine Bilirubin (Negative) Urine Urobilinogen (Normal) mg/dL Ur Leukocyte Esterase (Negative) Urine Microscopic WBC (0-3) per hpf Urine Bacteria (None-Few) per hpf Ur Culture Indicated? (NO) 11/30/16 11/30/16 11/30/16 Range/Units 02:30 02:30 02:30 WBC 10.8 (4.3-11.1) K/mcL RBC 2.13 L (3.82-4.97) M/mcL Hgb 6.3 L (11.5-15.4) g/dL Hct 20.4 L (35.3-44.9) % MCV 95.8 (83.0-100.0) fL MCH 29.6 (28.0-33.3) pg MCHC 30.9 L (31.6-35.5) g/dL RDW 14.1 (11.5-14.5) % Plt Count 397 (140-400) K/mcL MPV 8.5 L (9.4-12.4) fL Immature Gran % 0.6 (0-4) % Seg Neutrophils % 75.9 % Lymphocytes % 10.4 % Monocytes % 8.6 % Eosinophils % 4.3 % Basophils % 0.2 % Neutrophils # 8.2 (1.6-8.9) K/mcL Lymphocytes # 1.1 (0.6-4.6) K/mcL Monocytes # 0.9 (0.0-1.3) K/mcL Eosinophils # 0.5 (0.0-0.6) K/mcL Basophils # 0.0 (0.0-0.2) K/mcL Immature Plt Fraction 1.0 L (1.1-6.1) % PT (9.4-12.1) Seconds INR APTT (26.0-36.0) Seconds D-Dimer (0-500) ng/mLFEU Sodium 136 (136-145) mEq/L Potassium 6.2 H (3.5-4.5) mEq/L Chloride 99 (98-109) mEq/L Carbon Dioxide 25 (19-29) mEq/L BUN 110 H (7-20) mg/dL Creatinine 3.71 H (0.57-1.11) mg/dL Est GFR ( Amer) 15 L (> 60) Est GFR (Non-Af Amer) 12 L (> 60) BUN/Creatinine Ratio 30 H (6-26) Glucose 118 H (70-99) mg/dL Calculated Osmolality 318 H (280-300) Calcium 8.6 (8.6-10.8) mg/dL Total Bilirubin (0.2-1.2) mg/dL Direct Bilirubin (0.0-0.5) mg/dL Indirect Bilirubin (0.0-1.2) mg/dL AST (5-34) Units/L ALT (0-55) Units/L Alkaline Phosphatase (38-126) Units/L Troponin I (0-0.03) ng/mL B-Natriuretic Peptide (0-100) pg/mL Serum Total Protein (6.0-8.3) g/dL Albumin (3.5-5.0) g/dL Globulin (2.4-3.5) g/dL Albumin/Globulin Ratio (1.1-2.2) Lipase 33 (8-78) Units/L Urine Color (Yellow) Urine Clarity (Clear) Urine pH (5.0-8.0) pH Units Ur Specific [place] (1.010-1.025) Urine Protein (Neg-Trace) mg/dL Urine Glucose (UA) (Normal) mg/dL Urine Ketones (Negative) mg/dL Urine Blood (Negative) Urine Nitrite (Negative) Urine Bilirubin (Negative) Urine Urobilinogen (Normal) mg/dL Ur Leukocyte Esterase (Negative) Urine Microscopic WBC (0-3) per hpf Urine Bacteria (None-Few) per hpf Ur Culture Indicated? (NO) 11/30/16 11/30/16 Range/Units 02:30 03:16 WBC (4.3-11.1) K/mcL RBC (3.82-4.97) M/mcL Hgb (11.5-15.4) g/dL Hct (35.3-44.9) % MCV (83.0-100.0) fL MCH (28.0-33.3) pg MCHC (31.6-35.5) g/dL RDW (11.5-14.5) % Plt Count (140-400) K/mcL MPV (9.4-12.4) fL Immature Gran % (0-4) % Seg Neutrophils % % Lymphocytes % % Monocytes % % Eosinophils % % Basophils % % Neutrophils # (1.6-8.9) K/mcL Lymphocytes # (0.6-4.6) K/mcL Monocytes # (0.0-1.3) K/mcL Eosinophils # (0.0-0.6) K/mcL Basophils # (0.0-0.2) K/mcL Immature Plt Fraction (1.1-6.1) % PT (9.4-12.1) Seconds INR APTT (26.0-36.0) Seconds D-Dimer (0-500) ng/mLFEU Sodium (136-145) mEq/L Potassium (3.5-4.5) mEq/L Chloride (98-109) mEq/L Carbon Dioxide (19-29) mEq/L BUN (7-20) mg/dL Creatinine (0.57-1.11) mg/dL Est GFR ( Amer) (> 60) Est GFR (Non-Af Amer) (> 60) BUN/Creatinine Ratio (6-26) Glucose (70-99) mg/dL Calculated Osmolality (280-300) Calcium (8.6-10.8) mg/dL Total Bilirubin (0.2-1.2) mg/dL Direct Bilirubin (0.0-0.5) mg/dL Indirect Bilirubin (0.0-1.2) mg/dL AST (5-34) Units/L ALT (0-55) Units/L Alkaline Phosphatase (38-126) Units/L Troponin I 0.01 (0-0.03) ng/mL B-Natriuretic Peptide (0-100) pg/mL Serum Total Protein (6.0-8.3) g/dL Albumin (3.5-5.0) g/dL Globulin (2.4-3.5) g/dL Albumin/Globulin Ratio (1.1-2.2) Lipase (8-78) Units/L Urine Color Yellow (Yellow) Urine Clarity Cloudy A (Clear) Urine pH 5.0 (5.0-8.0) pH Units Ur Specific [place] 1.014 (1.010-1.025) Urine Protein 30 H (Neg-Trace) mg/dL Urine Glucose (UA) Normal (Normal) mg/dL Urine Ketones Negative (Negative) mg/dL Urine Blood Negative (Negative) Urine Nitrite Negative (Negative) Urine Bilirubin Negative (Negative) Urine Urobilinogen Normal (Normal) mg/dL Ur Leukocyte Esterase Large H (Negative) Urine Microscopic WBC TNTC H (0-3) per hpf Urine Bacteria Many H (None-Few) per hpf Ur Culture Indicated? YES A (NO) Attestation Statement - Attestation Attestation: I, Chris Gustafson MD, personally evaluated this patient and discussed their management with the resident physician. I reviewed the resident's note and agree with the documented findings, medical decision making, and plan of care. 71-year-old female presents to the emergency department from a local detention with a complaint that she coughed up some blood tonight. There is just one episode. Some mild mid chest pain. No fever. Some mild shortness of breath. On examination patient is a well-developed morbidly obese elderly female in no acute distress. She is alert and oriented 3. There is no cyanosis or diaphoresis. Chest is nontender to palpation. Breath sounds are clear and equal bilaterally. Heart regular rate and rhythm. Abdomen is soft and nontender with normal bowel sounds. Labs reviewed. Chronic renal insufficiency and hyperkalemia. Markedly elevated d-dimer. Unable to obtain a CTA due to patient's renal failure The hospitalist, Dr. Chacon, was consulted and accepted admission the patient.
[2016-11-30 02:39] LABS: Basophils % 0.2 %; Eosinophils # 0.5 K/mcL (0.0-0.6); Eosinophils % 4.3 %; Hematocrit 20.4 % (35.3-44.9); Hemoglobin 6.3 g/dL (11.5-15.4); Immature Granulocytes % 0.6 % (0-4); Lymphocytes # 1.1 K/mcL (0.6-4.6); Lymphocytes % 10.4 %; Mean Corpuscular HGB Conc 30.9 g/dL (31.6-35.5); Mean Corpuscular Hemoglobin 29.6 pg (28.0-33.3); Mean Corpuscular Volume 95.8 fL (83.0-100.0); Mean Platelet Volume 8.5 fL (9.4-12.4); Monocytes # 0.9 K/mcL (0.0-1.3); Monocytes % 8.6 %; Neutrophils # 8.2 K/mcL (1.6-8.9); Platelet Count 397 K/mcL (140-400); Red Blood Count 2.13 M/mcL (3.82-4.97); Red Cell Distribution Width 14.1 % (11.5-14.5); Segmented Neutrophils % 75.9 %
[2016-11-30 02:48] LABS: INR 1.2; Prothrombin Time 13.3 Seconds (9.4-12.1)
[2016-11-30 02:50] LABS: Activated Partial Thrombo Time 30.7 Seconds (26.0-36.0)
[2016-11-30 02:51] LABS: Potassium 6.2 mEq/L (3.5-4.5)
[2016-11-30 02:52] LABS: Calcium 8.6 mg/dL (8.6-10.8)
[2016-11-30 02:54] LABS: Albumin/Globulin Ratio 0.4 (1.1-2.2); Bilirubin,Direct 0.3 mg/dL (0.0-0.5); Bilirubin,Indirect 0.1 mg/dL (0.0-1.2); Bilirubin,Total 0.4 mg/dL (0.2-1.2); Globulin 4.7 g/dL (2.4-3.5); Total Protein 6.7 g/dL (6.0-8.3)
[2016-11-30] MEDS ORDERED: *HR* Enoxaparin 120 MG/0.8 ML SYRINGE SQ STA (03:14)
[2016-11-30 03:33] LABS: Bilirubin,Urine Negative (Negative); Blood,Urine Negative (Negative); Clarity,Urine Cloudy (Clear); Color,Urine Yellow (Yellow); Glucose,Urine (UA) Normal (Normal); Ketones,Urine Negative (Negative); Leukocyte Esterase,Urine Large (Negative); Nitrite,Urine Negative (Negative); Protein,Urine 30 mg/dL (Neg-Trace); Specific Gravity,Urine 1.014 (1.010-1.025); Urobilinogen,Urine Normal (Normal)
[2016-11-30 03:35] LABS: Bacteria,Urine Many per hpf (None-Few); WBC,Urine TNTC per hpf (0-3)
[2016-11-30] MEDS ORDERED: Ipratropium/Albuterol Neb 3 ML IH ONE (03:36)
[2016-11-30] MEDS ORDERED: Insulin Human Regular 5 UNIT, Sodium Bicarbonate 50 MEQ in D10% in Water 500 ML IVC ONE (03:36)
[2016-11-30] MEDS ORDERED: *HR* Dextrose 50 % in Water (Syg) 50 ML SYRINGE IVP ONE (03:38)
[2016-11-30] MEDS ORDERED: Calcium Gluconate 1,000 MG in D5% in Water 100 ML IVPB ONE (03:40)
[2016-11-30] MEDS ORDERED: Naloxone 0.4 MG/ML INJ IVP PRN (05:20)
[2016-11-30] MEDS ORDERED: 0.9 % Sodium Chloride 1,000 ML IVC ONE (05:26)
[2016-11-30] MEDS ORDERED: Lactulose Oral Soln 20 GM/30 ML UDC PO ONE (05:27)
--- NOTE | 2016-11-30 05:39 | Internal Med History&Physical ---
<Shan Ordaz - Last Filed: 11/30/16 05:40> Date of Encounter: 11/30/16 Time of Encounter: 04:45 Assessment and Plan (1) Hemoptysis Current visit: Yes Status: Acute - Patient reported one episode of coughing out blood clot at midnight. - Feel this can be from nose bleed given the finding of blood clots inside mouth and at posterior oropharynx. - Per nurse, patient was throwing up about 100-150 cc of vomitus containing blood clot in CT room. - Patient had EGD on 10/11/16 found mucosal nodule in esophagus but normal stomach and duodenum. - Will obtain CT chest and CT sinus for further evaluation which may guide us about the source of bleeding. - Hgb stable around 7.0. Continue to monitor H&H. (2) Elevated d-dimer Current visit: Yes Status: Acute - D-dimer 3305. - Doubt PE given no significant VS abnormality (e.g. tachycardia, tachypnea) or hypoxia (O2 sat 100% on 4L oxygen). - D-dimer can be elevated due to her age and CKD. Malignancy can also cause elevated d-dimer. - Will obtain venous US of bilateral extremities for DVT. - Will get CT chest for further evaluation for now. - May consider VQ scan if there is suspicion of PE. (3) Hyperkalemia Current visit: Yes Status: Acute - K 6.2 on initial presentation. - Improved as K drops to 5.7 after albuterol, Ca gluconate and insulin with D5 in ED. - Will give 30 gram of Kayexalate and 20 gram of lactulose once. - Continue to monitor. (4) UTI (urinary tract infection) Current visit: Yes Status: Acute - One-week history of dysuria and difficulty urinating with UA positive for UTI. Urine culture pending. - Patient has prior urine culture positive for ampicillin-sensitive E. faecalis. - Will start Unasyn. Qualifiers: Urinary tract infection type: site unspecified Hematuria presence: without hematuria Qualified Code(s): N39.0 - Urinary tract infection, site not specified (5) Acute on chronic renal failure Current visit: No Status: Acute - SCr 3.71 on admission, which increased from 2.87 on 11/13. - Despite of severe bilateral lower extremity pitting edema, feel patient is intravascularly dry given high BUN/Cr ratio and leads to worsening renal function. - Postrenal is also possible given reported difficulty urinating. Bladder scan ordered and patient may need urinary cath if positive for urinary retention. - May need to consult nephrology (Dr. Shipman) if renal function not improving. Patient may benefit from temporary dialysis. - Continue to monitor renal function and electrolytes. (6) Congestive heart failure (CHF) Current visit: No Status: Chronic - Limited echo on 10/09/16 showed LVEF 55% with prior echo also showed moderate LV diastolic dysfunction. - Elevated BNP 1179. - Despite of severe bilateral lower extremity pitting edema, feel patient is intravascularly dry given high BUN/Cr ratio and worsening renal function so hold diuresis at this time. - Start BiPAP to assist breathing effort in the setting of potential pulmonary edema. Qualifiers: Congestive heart failure type: diastolic Congestive heart failure chronicity: chronic Qualified Code(s): I50.32 - Chronic diastolic (congestive ) heart failure (7) Anemia of chronic disease Current visit: No Status: Acute - Hgb 6.3 on initial presentation. - Likely secondary to CKD and other comorbidities. - Stable as repeated Hgb at 7.0 without transfusion. - Continue to monitor. (8) DVT prophylaxis Current visit: No Status: Acute - Patient had received one dose of therapeutic-level Lovenox. Internal Medicine - H&P: HPI Chief complaint: Coughing up blood clot Admitted From: Emergency Dept Plans for Post Hospital Care: Home History of present illness: Ms. Dsouza is a 71 year old female with diastolic CHF (LVEF 55% per echo on ), CAD s/p cardiac cath, DM, HTN, hyperlipidemia and CKD (not on HD, patient of Dr. Perez). Patient was sent from halfway to [place] ED after she coughed up a blood clot at midnight. Patient has some nonproductive cough after but denies shortness of breath, chest pain/discomfort, palpitation, lightheadedness, syncope, fever, chills. Patient is mostly bed bound and admits having bilateral lower extremity edema with the right greater than the left for one year and half. Patient also reports having burning sensation and difficulty urinating for past week. Patient denies being on clarke catheter in the halfway. Patient reports using 4L continuous oxygen at halfway. Patient is DNR -CCA-DNI. Past Med Surg Social Fam HX - Past Medical History Medical history: asthma, CHF, COPD, CVA, diabetes, hypertension, renal disease, other Psychiatric history: no psych history - Past Surgical History Surgical History: no surgical history - Social History Smoking Status: Never smoker Smokeless Tobacco Status: No Alcohol use: none Drug use: none - Family History Father Living Status: Hx Family Cancer: Yes Mother Living Status: Hx Family Cardiac Disorders: No Hx Family Respiratory Disorders: No Hx Family Cancer: Yes Hx Family GI Disorders: No Hx Family Endocrine Disorder: No Hx Family Neuromuscular Disorders: No Hx Family Neurologic Disorders: No Hx Family HEENT Disorders: No Hx Family Autoimmune Disorders: No Internal Medicine - H&P: Meds Cholecalciferol (Vitamin D3) [Vitamin D3] 50,000 unit PO QWEEK 05/30/16 [History ] Gabapentin [Neurontin] 300 mg PO BID 05/30/16 [History] Hydralazine HCl 100 mg PO Q8H 05/30/16 [History] Insulin ASPART [NovoLOG] 1 - 5 unit SQ ACHS 05/30/16 [History] Isosorbide MONOnitrate (24 HR) [Imdur] 30 mg PO DAILY 05/30/16 [History] CloNIDine HCl [Clonidine HCl] 0.2 mg PO BID #60 tab 06/04/16 [Rx] Aspirin 81 mg PO DAILY 07/10/16 [History] Insulin DETEMIR [Levemir] 50 unit SQ QAM 07/10/16 [History] Insulin DETEMIR [Levemir] 55 unit SQ HS 07/10/16 [History] Acetaminophen [Tylenol] 650 mg PO Q6HR PRN #0 tablet 07/20/16 [Rx] Ipratropium/Albuterol Neb [Duoneb] 3 ml IH [id number] inhsol 07/20/16 [Rx] Tramadol HCl [Ultram] 50 mg PO QID PRN #10 tab 07/20/16 [Rx] Atorvastatin Calcium [Lipitor] 80 mg PO DAILY 07/31/16 [History] Budesonide/Formoterol 160/4.5 [Symbicort 160/4.5] 2 puff IH BID 07/31/16 [ History] ClonazePAM [Klonopin] 1 mg PO TID PRN 07/31/16 [History] Clopidogrel [Plavix] 75 mg PO DAILY 07/31/16 [History] Levothyroxine [Synthroid] 25 mcg PO DAILY 07/31/16 [History] Loperamide [Imodium] 2 mg PO Q4HR PRN 07/31/16 [History] Pantoprazole Sodium [Protonix] 40 mg PO DAILY 07/31/16 [History] Saline Nasal [place] [[place] Nasal [place]] 2 spray NS TID 07/31/16 [History] Tiotropium [Spiriva] 18 mcg IH DAILY 07/31/16 [History] Furosemide [Lasix] 40 mg PO BID #0 08/12/16 [Rx] Lisinopril [Zestril] 5 mg PO DAILY #0 tablet 08/12/16 [Rx] Metoprolol Succinate 25 mg PO DAILY #30 tab.er.24h 08/12/16 [Rx] Spironolactone [Aldactone] 12.5 mg PO DAILY tablet 08/12/16 [Rx] Citalopram [CeleXA] 20 mg PO DAILY 10/07/16 [History] Furosemide [Lasix] 20 mg PO QPM 10/07/16 [History] Loratadine [Claritin] 10 mg PO DAILY 10/07/16 [History] Multivitamin [One Daily Multivitamin] 1 tab PO DAILY 10/07/16 [History] Allergies No Known Allergies Allergy (Verified 07/24/16 16:19) All Systems PM: A 10-system review of systems was performed and is negative for pertinent findings except as documented above in the HPI. - Constitutional Constitutional: no anorexia, no chills, no fever(s), no weight gain, no weight loss - EENT Eyes: no change in vision Ears: no decreased hearing Nose, mouth and throat: no dysphagia, no odynophagia - Cardiovascular Cardiovascular ROS IM: no chest pain, no lightheadedness, no palpitations, no syncope - Respiratory Respiratory: as per HPI, cough, hemoptysis, no dyspnea, no excessive phlegm production - Gastrointestinal Gastrointestinal: no abdominal pain, no diarrhea, no hematochezia, no melena, no nausea, no vomiting - Genitourinary Genitourinary: as per HPI, difficulty urinating, dysuria - Musculoskeletal Musculoskeletal ROS IM: no arthralgias, no myalgias - Integumentary Integumentary IM: no pruritus, no rash - Neurological Neurological ROS: no focal weakness, no numbness, no tingling - Hematologic/Lymphatic Hematologic/Lymphatic: no easy bleeding, no easy bruising - Constitutional Vitals: Temp Pulse Resp BP Pulse Ox 97.8 F 66 20 129/40 99 11/30/16 01:24 11/30/16 04:30 11/30/16 04:53 11/30/16 04:53 11/30/16 04:30 General appearance: Present: cooperative, A&O X 3, no acute distress - Head Head exam: Present: atraumatic, normocephalic - Eye Eye exam: Present: EOMI, PERRL, conjuntiva pink, sclera anicteric - ENT ENT exam: Present: mucous membranes dry Additional comments: Dry blood noted inside mouth and at posterior oropharynx. - Neck Neck exam general surgery: Present: supple, trachea midline. Absent: lymphadenopathy - Respiratory Respiratory exam: Present: decreased breath sounds. Absent: accessory muscle use, rales, rhonchi, wheezes - Cardiovascular Cardiovascular exam: Present: RRR, +S1, +S2. Absent: diastolic murmur, gallop, rubs, systolic murmur - GI/Abdominal GI/Abdominal exam: Present: normal bowel sounds, soft, no peritoneal signs. Absent: distended, tenderness - Extremities Exam Extremities exam: Present: warm, radial pulses palpable and symetrical. Absent : calf tenderness, cyanotic Additional comments: Severe bilateral lower extremity pitting edema, R > L. - Neurological Exam Neurological exam: Present: CN II-XII intact, oriented X3. Absent: pronater drift, facial droop, speech deficit Additional comments: Patient cannot lift up her bilateral legs but can winkle her toes. - Skin Skin exam: Present: dry, intact Internal Med - H&P Results - Labs CBC & Chem 7: 11/30/16 02:30 11/30/16 02:30 Labs: Short CBC 11/30/16 11/30/16 Range/Units 05:58 02:30 WBC 11.0 10.8 (4.3-11.1) K/mcL Hgb 7.0 L 6.3 L (11.5-15.4) g/dL Hct 22.3 L 20.4 L (35.3-44.9) % Plt Count 336 397 (140-400) K/mcL Neutrophils # 8.0 8.2 (1.6-8.9) K/mcL BMP 11/30/16 Range/Units 02:30 Sodium 136 (136-145) mEq/L Potassium 6.2 H (3.5-4.5) mEq/L Chloride 99 (98-109) mEq/L Carbon Dioxide 25 (19-29) mEq/L BUN 110 H (7-20) mg/dL Creatinine 3.71 H (0.57-1.11) mg/dL Glucose 118 H (70-99) mg/dL Calcium 8.6 (8.6-10.8) mg/dL Cardiac Enzymes 11/30/16 Range/Units 02:30 Troponin I 0.01 (0-0.03) ng/mL Liver Function 11/30/16 Range/Units 02:30 Total Bilirubin 0.4 (0.2-1.2) mg/dL Direct Bilirubin 0.3 (0.0-0.5) mg/dL AST 48 H (5-34) Units/L ALT 24 (0-55) Units/L Alkaline Phosphatase 162 H (38-126) Units/L Albumin 2.0 L (3.5-5.0) g/dL Urine 11/30/16 Range/Units 03:16 Urine Color Yellow (Yellow) Urine Clarity Cloudy A (Clear) Urine pH 5.0 (5.0-8.0) pH Units Ur Specific [place] 1.014 (1.010-1.025) Urine Protein 30 H (Neg-Trace) mg/dL Urine Glucose (UA) Normal (Normal) mg/dL - EKG Data -: EKG Interpreted by Myself EKG shows normal: sinus rhythm Rate: bradycardia - EKG Data Prior EKG available for review: yes When compared to previous EKG: there is no significant change EKG comments: 11/30/16 06:21 HR 55, LA 240, QRS 106, sinus bradycardia with first degree AV block, no significant ischemic change compared to prior EKG from 2016. - Impressions Impressions Chest X-Ray 11/30/16 01:29 IMPRESSION: Improved aeration lungs. A few scattered opacities remain. Findings are either due to decrease pneumonia or pulmonary edema. D/ / Martin Jiménez MD / Martin Jmiénez MD Interpreting Provider: Martin Jiménez MD <Avni Anna - Last Filed: 12/05/16 03:39> Date of Encounter: 11/30/16 Internal Medicine - H&P: HPI History of present illness: Ms. Dsouza is a 71 year old female admitted to the [facility] via the emergency department when she presented with a chief complaint of chest pain and coughing up blood blood-tinged sputum and blood clot. The patient was visited and interviewed and examined I examined this patient and my medical decision-making was reviewed with the Resident Physician, Dr. Shan Ordaz. For this encounter, I have reviewed the documentation, treatment plan, and medical decision making. I have had face to face time with this patient. Cumulative laboratory and radiographic data base was reviewed and considered and discussed. I agree with the documented findings, disposition and treatment plan as described except to the extent set forth below. Given the patient's presenting concerns, past medical history, clinical findings and symptoms, she is admitted at this time to undergo further evaluation and disposition. Plan of care has been discussed in detail with patient. Questions addressed. Consultative opinions will be sought as clinical circumstances justify. Hospital course will be dependent upon clinical findings, treatment response and /or potential consultative interventions. Condition is serious. Prognosis is guarded. CODE STATUS is DNR comfort care arrest DNI Past Med Surg Social Fam HX - Past Medical History Source: old records reviewed Medical history: arthritis, asthma, CHF, COPD (JOSEFINA.), coronary artery disease, CVA, diabetes, GERD, hyperlipidemia, hypertension, myocardial infarction, osteoporosis, renal disease (CKD III.), thyroid disease Psychiatric history: anxiety, depression - Past Surgical History Surgical History: non-contributory, other - Social History Smoking Status: Never smoker Smokeless Tobacco Status: No Alcohol use: none Drug use: none Occupational status: unemployed, retired Current living situation: Home - Independent, Home Activity Level: Uses cane/walker, Mostly sedentary Recent Out of Country Travel Within the Last 8 Weeks: No Exposure or Possible Exposure to Illness During Travel: No All Systems PM: A 10-system review of systems was performed and is negative for pertinent findings except as documented above in the HPI. - Constitutional Constitutional: as per HPI - EENT Eyes: as per HPI Ears: as per HPI Nose, mouth and throat: as per HPI - Cardiovascular Cardiovascular ROS IM: as per HPI - Respiratory Respiratory: as per HPI - Gastrointestinal Gastrointestinal: as per HPI - Genitourinary Genitourinary: as per HPI - Musculoskeletal Musculoskeletal ROS IM: as per HPI - Integumentary Integumentary IM: as per HPI - Neurological Neurological ROS: as per HPI - Psychiatric Psychiatric: as per HPI - Endocrine Endocrine IM: as per HPI - Hematologic/Lymphatic Hematologic/Lymphatic: as per HPI - Allergic/Immunologic Allergic/Immunologic: as per HPI - Constitutional Vitals: Temp Pulse Resp BP Pulse Ox 97.4 F L 78 18 134/74 98 11/30/16 06:46 11/30/16 06:46 11/30/16 06:46 11/30/16 06:46 11/30/16 07:09 Vital Signs Temp Pulse Resp BP Pulse Ox 11/30/16 07:09 98 11/30/16 06:46 97.4 F L 78 18 134/74 99 11/30/16 05:47 97.5 F L 81 14 119/69 98 11/30/16 04:53 20 129/40 11/30/16 04:30 66 20 129/40 99 11/30/16 04:00 52 20 136/39 99 11/30/16 03:00 55 20 130/35 99 11/30/16 01:34 99 11/30/16 01:30 56 20 132/58 99 11/30/16 01:24 97.8 F 56 16 132/58 99 Intake and Output 11/29/16 11/29/16 11/30/16 15:59 23:59 07:59 Intake Total 0 / 0 Balance 0 / 0 Intake: Oral 0 / 0 Other: # Urine Diapers 1 Weight 122.697 kg Blood Glucose* 118 Patient Weight 11/30/16 23:59 Weight 122.697 kg Internal Med - H&P Results - Labs CBC & Chem 7: 12/04/16 05:50 12/04/16 05:50 Labs: Short CBC 11/30/16 Range/Units 05:58 WBC 11.0 (4.3-11.1) K/mcL Hgb 7.0 L (11.5-15.4) g/dL Hct 22.3 L (35.3-44.9) % Plt Count 336 (140-400) K/mcL Neutrophils # 8.0 (1.6-8.9) K/mcL BMP 11/30/16 05:58 Sodium 135 L Potassium 5.7 H Chloride 97 L Carbon Dioxide 25 BUN 109 H Creatinine 3.76 H Glucose 276 H Calcium 8.7 Abnormal lab results RBC 2.33 M/mcL (3.82-4.97) L 11/30/16 05:58 Hgb 7.0 g/dL (11.5-15.4) L 11/30/16 05:58 Hct 22.3 % (35.3-44.9) L 11/30/16 05:58 MCHC 31.4 g/dL (31.6-35.5) L 11/30/16 05:58 MPV 9.0 fL (9.4-12.4) L 11/30/16 05:58 Immature Plt Fraction 1.0 % (1.1-6.1) L 11/30/16 02:30 PT 13.3 Seconds (9.4-12.1) H 11/30/16 02:30 D-Dimer 3305 ng/mLFEU (0-500) H 11/30/16 02:30 Sodium 135 mEq/L (136-145) L 11/30/16 05:58 Potassium 5.7 mEq/L (3.5-4.5) H 11/30/16 05:58 Chloride 97 mEq/L (98-109) L 11/30/16 05:58 BUN 109 mg/dL (7-20) H 11/30/16 05:58 Creatinine 3.76 mg/dL (0.57-1.11) H 11/30/16 05:58 Est GFR ( Amer) 14 (> 60) L 11/30/16 05:58 Est GFR (Non-Af Amer) 12 (> 60) L 11/30/16 05:58 BUN/Creatinine Ratio 29 (6-26) H 11/30/16 05:58 Glucose 276 mg/dL (70-99) H 11/30/16 05:58 Calculated Osmolality 324 (280-300) H 11/30/16 05:58 Phosphorus 7.4 mg/dL (2.3-4.7) H 11/30/16 05:58 AST 48 Units/L (5-34) H 11/30/16 02:30 Alkaline Phosphatase 162 Units/L (38-126) H 11/30/16 02:30 B-Natriuretic Peptide 1179 pg/mL (0-100) H 11/30/16 02:30 Albumin 2.0 g/dL (3.5-5.0) L 11/30/16 02:30 Globulin 4.7 g/dL (2.4-3.5) H 11/30/16 02:30 Albumin/Globulin Ratio 0.4 (1.1-2.2) L 11/30/16 02:30 Urine Clarity Cloudy (Clear) A 11/30/16 03:16 Urine Protein 30 mg/dL (Neg-Trace) H 11/30/16 03:16 Ur Leukocyte Esterase Large (Negative) H 11/30/16 03:16 Urine Microscopic WBC TNTC per hpf (0-3) H 11/30/16 03:16 Urine Bacteria Many per hpf (None-Few) H 11/30/16 03:16 Ur Culture Indicated? YES (NO) A 11/30/16 03:16 Chest X-Ray 11/30/16 01:29 IMPRESSION: Improved aeration lungs. A few scattered opacities remain. Findings are either due to decrease pneumonia or pulmonary edema. D/ / Martin Jiménez MD / Martin Jiménez MD Interpreting Provider: Martni Jiménez MD Chest CT 11/30/16 05:25 IMPRESSION: 1. Mild effusions with interstitial pulmonary changes and body wall edema from fluid overload. 2. Bilateral pulmonary ground-glass and consolidative changes which could represent persistent or recurrent atypical pneumonia versus possible vasculitis with alveolar hemorrhage. 3. Stable mild mediastinal and probable hilar lymphadenopathy which could be reactive in nature. 4. No definite primary malignancy identified. 5. Extensive arterial calcifications which may relate to chronic renal disease. 6. Mild fluid distention of the esophagus which could relate to esophageal dysmotility or reflux. D/ / Allen Hayes MD / Allen Hayes MD Interpreting Provider: Allen Hayes MD - Impressions ITS Impressions Chest CT 11/30/16 05:25 IMPRESSION: 1. Mild effusions with interstitial pulmonary changes and body wall edema from fluid overload. 2. Bilateral pulmonary ground-glass and consolidative changes which could represent persistent or recurrent atypical pneumonia versus possible vasculitis with alveolar hemorrhage. 3. Stable mild mediastinal and probable hilar lymphadenopathy which could be reactive in nature. 4. No definite primary malignancy identified. 5. Extensive arterial calcifications which may relate to chronic renal disease. 6. Mild fluid distention of the esophagus which could relate to esophageal dysmotility or reflux. D/ / Allen Hayes MD / Allen Hayes MD Interpreting Provider: Allen Hayes MD - Attending Attestation My signature below is to certify that this patient is under my care and that I, or the Resident Physician working with me, has had a [id number] encounter with this patient.
[2016-11-30] MEDS ORDERED: Albuterol 2.5 MG/3 ML NEBULIZER IH PRN (05:48)
[2016-11-30] MEDS ORDERED: Ampicillin/Sulbactam 1,500 MG in 0.9 % Sodium Chloride Mini Bag 100 ML IVPB SCH (06:00)
[2016-11-30 06:13] LABS: Basophils % 0.2 %; Eosinophils # 0.4 K/mcL (0.0-0.6); Eosinophils % 3.3 %; Hematocrit 22.3 % (35.3-44.9); Immature Granulocytes % 0.4 % (0-4); Lymphocytes # 1.9 K/mcL (0.6-4.6); Mean Corpuscular HGB Conc 31.4 g/dL (31.6-35.5); Mean Corpuscular Volume 95.7 fL (83.0-100.0); Monocytes # 0.7 K/mcL (0.0-1.3); Monocytes % 6.2 %; Platelet Count 336 K/mcL (140-400); Red Blood Count 2.33 M/mcL (3.82-4.97); Segmented Neutrophils % 72.9 %
[2016-11-30 06:27] LABS: Magnesium 2.6 mg/dL (1.6-2.6); Phosphorous 7.4 mg/dL (2.3-4.7)
[2016-11-30 06:29] LABS: Calcium 8.7 mg/dL (8.6-10.8); Potassium 5.7 mEq/L (3.5-4.5)
[2016-11-30] MEDS ORDERED: Ondansetron 4 MG/2 ML VIAL IVP ONE (06:43)
[2016-11-30] MEDS ORDERED: Famotidine 20 MG/2 ML VIAL IVP PRN (07:25)
[2016-11-30] MEDS ORDERED: Benzonatate 100 MG CAPSULE PO PRN (07:25)
[2016-11-30] MEDS ORDERED: *HR* Morphine 2 MG/ML SYRINGE IVP PRN (07:25)
[2016-11-30] MEDS ORDERED: Ondansetron 4 MG/2 ML VIAL IVP PRN (07:25)
[2016-11-30] MEDS ORDERED: clonazePAM 1 MG TABLET PO PRN (07:37)
[2016-11-30] MEDS ORDERED: Piperacillin/Tazobactam 4.5 GM in D5% in Water (Mini-Bag+) 100 ML IVPB ONE (07:42)
[2016-11-30] MEDS: Ipratropium/Albuterol Neb 3 ML IH SCH ×4 (07:58→22:11)
[2016-11-30] MEDS: 0.9 % Sodium Chloride 1,000 ML IVC SCH (08:04)
[2016-11-30 08:33] LABS: VBG HCO3 26.8 mEq/L (21-27); VBG PH 7.28 pH Units (7.32-7.42)
[2016-11-30] MEDS ORDERED: Piperacillin/Tazobactam 3.375 GM in D5% in Water (Mini-Bag+) 100 ML IVPB SCH (09:00)
[2016-11-30 09:07] LABS: Thyroid Stimulating Hormone 4.58 mcIU/mL (0.350-4.840)
[2016-11-30 09:15] LABS: Hemoglobin A1C 5.6 %
[2016-11-30 10:45] LABS: Potassium 5.7 mEq/L (3.5-4.5)
[2016-11-30] MEDS: Pantoprazole 40 MG VIAL IVP SCH (10:57)
[2016-11-30] MEDS: Azithromycin 500 MG in D5% in Water 250 ML IVPB SCH (10:58)
[2016-11-30] MEDS: Levothyroxine 25 MCG TABLET PO SCH (10:59)
[2016-11-30] MEDS: Loratadine 10 MG TABLET PO SCH (10:59)
[2016-11-30] MEDS: Gabapentin 300 MG CAPSULE PO SCH ×2 (10:59→21:21)
[2016-11-30] MEDS: Aspirin 81 MG TAB.CHEW PO SCH (10:59)
[2016-11-30] MEDS: Isosorbide MONOnitrate (24 HR) 30 MG TAB.ER.24H PO SCH (10:59)
[2016-11-30] MEDS: Metoprolol XL (24 HR) Succ 25 MG TAB.ER.24H PO SCH (11:00)
[2016-11-30] MEDS: Saline Nasal Spray 44 ML BOTTLE NS SCH ×5 (11:10→21:42)
[2016-11-30 11:32] LABS: ABG Base Excess 0.2 mEq/L (-2.0 to 3.0); ABG HCO3 25.4 mEQ/L (21-27); ABG Oxygen Saturation 99 % (95-98); ABG PCO2 43 mmHg (35-45); ABG PH 7.38 pH Units (7.32-7.45); ABG PO2 124 mmHg (85-104); ABG TCO2 26.7 mEq/L (20-26); Blood Gas FiO2 36 %; Blood Gas Liter Flow 4 L/MIN
[2016-11-30] MEDS ORDERED: Dextrose Gel 15 GM PO PRN ×2 (14:09)
[2016-11-30] MEDS ORDERED: D5% in Water 1,000 ML IVC PRN (14:09)
[2016-11-30] MEDS ORDERED: *HR* Dextrose 50 % in Water (Syg) 50 ML SYRINGE IVP PRN (14:09)
--- NOTE | 2016-11-30 14:44 | Internal Med Progress Note ---
<Jay Oglesby - Last Filed: 11/30/16 14:41> Date of Encounter: 11/30/16 Time of Encounter: 14:41 - Assessment and plan (1) Hemoptysis Current Visit: Yes Status: Acute Assessment and plan: Patient presented with hemoptysis current cause unidentified. No further hemoptysis since admission. May be secondary to postnasal bleeding. Hemoglobin was 6.3 upon admission and 7.0 upon recheck without any transfusions. Review of patient's medical records demonstrate chronic anemia likely secondary to chronic kidney disease. Plan: - Hold anticoagulation - Monitor symptoms and blood work. (2) Hypertension Current Visit: No Status: Acute Assessment and plan: History of hypertension, currently blood pressure is controlled continue to hold antihypertensives. Qualifiers: Hypertension type: essential hypertension Qualified Code(s): I10 - Essential (primary) hypertension (3) Type 2 diabetes mellitus with diabetic chronic kidney disease Current Visit: No Status: Acute Assessment and plan: Known type 2 diabetes patient is on Levemir twice a day at home. Current glucoses are elevated. Plan: - Before meals at bedtime glucose checks - Levemir 20 mg twice a day - Low-dose sliding scale insulin adjust as necessary Qualifiers: Diabetes mellitus mcc insulin use: with terminal press operator use Chronic kidney disease stage: stage 4 (severe) Qualified Code(s): E11.22 - Type 2 diabetes mellitus with diabetic chronic kidney disease; N18.4 - Chronic kidney disease, stage 4 (severe); Z79.4 - medical terminologist (current) use of insulin (4) CHF exacerbation Current Visit: No Status: Chronic Assessment and plan: Patient presents with acute diastolic heart failure exacerbation. BNP 1179, clinical examination demonstrates pitting edema up to mid back. Cephalization appreciated on chest x-ray. - Low sodium diet - 1500ml fluid restrictions - daily weights - Consider Lasix drips. Qualifiers: Congestive heart failure type: combined Qualified Code(s): I50.43 - Acute on chronic combined systolic (congestive) and diastolic (congestive) heart failure (5) Acute on chronic renal failure Current Visit: No Status: Acute Assessment and plan: Patient presents with acute on chronic renal failure current creatinine is 3.76 which is elevated compared to baseline. Baseline creatinine 1.23 after chart review. I have contacted the patient's teleradiologist Dr. Perez and discussed the patient and consulted the nephrology team. - The patient appears volume overloaded but compared to laboratory results appears to be intravascularly dry. This may be secondary to malnutrition as the patient is a low albumin and third spacing. This may also be secondary to urinary retention as the patient had 1100 ML's of urine without any symptoms of having to urinate. Also considering urinary tract infection as the patient was straight cathetered in a milky white substance was extracted from her bladder. Plan: - Hold nephrotoxic medications and renally dose antibiotics. - Monitor renal function with a.m. labs - Address urinary tract infection (6) Hyperkalemia Current Visit: Yes Status: Acute Assessment and plan: 71-year-old female presenting to the emergency department with hemoptysis found to have acute kidney injury and hyperkalemia with a potassium of 6.2, she was given albuterol in the emergency department she received insulin and glucose, and was given 30 g of Kayexalate and 20 g of lactulose once. She received a dose of calcium gluconate in the emergency department. - Likely secondary to acute on chronic renal failure. Lisinopril and spironolactone have been held. Plan: - Reassess potassium in 6 hours. - Continue cardiac monitoring - If potassium is still elevated will give another dose of Kayexalate this evening. - Correct PRADEEP (7) Elevated d-dimer Current Visit: Yes Status: Acute Assessment and plan: Patient has elevated d-dimer greater than 3000 - Low suspicion for pulmonary embolism at this time - Vascular Doppler had difficulty with examination and what was visualized did not appear to have any occlusions. (8) UTI (urinary tract infection) Current Visit: Yes Status: Acute Assessment and plan: Patient presents to emergency department with hemoptysis found to have urinary tract infection with leukocytes esterase large, many bacteria and cloudy yellow urine. Urine also had protein. Specific gravity 1.014. - Patient is also presenting with urinary retention - Previous urinalysis reviewed with the last urinalysis positive for enterococcus faecalis, previous history of ESBL UTIs. - Current urine culture pending - Urine collected this afternoon was milky white thick - Current antibiotics include Zosyn Qualifiers: Urinary tract infection type: site unspecified Hematuria presence: without hematuria Qualified Code(s): N39.0 - Urinary tract infection, site not specified (9) Protein calorie malnutrition Current Visit: Yes Status: Acute Assessment and plan: Patient has been seen by dietitian in the past, history of protein malnutrition. Her malnutrition is likely contributing to her current medical picture. Plan: - Dietitian consult. And case discussed. Patient would benefit from high protein and calorie replacement. - Speech therapy consult - Palliative care consult (10) Anemia of chronic disease Current Visit: No Status: Acute Assessment and plan: Patient has a history of chronic anemia likely secondary to her chronic kidney disease and nutritional status. Current hemoglobin is 7.0, no transfusion at this time. Iron studies last completed in October with iron replacement. - Currently do not believe her anemia secondary to blood loss. - We will continue to monitor hemoglobin and if it falls below 7.0 will provide 1 unit PRBCs. - Monitor for other causes of anemia. - Subjective Interval history: Ms. Dsouza 71 F seen and evaluated patient bedside this morning. She is alert awake interactive no acute distress. She complains of feeling tired and with low energy. She denies any other concerns or discomforts. She is unsure if she had been coughing up blood and provides a poor historian. She denies any shortness of breath, chest pressure, chest tightness or discomforts. Denies any discomfort with urination. She said she always has lower 70 swelling. - Constitutional Vitals: Temp Pulse Resp BP Pulse Ox 97.4 F L 69 16 116/71 100 11/30/16 14:36 11/30/16 14:36 11/30/16 14:36 11/30/16 14:36 11/30/16 14:36 General appearance: Present: cooperative, A&O X 3, no acute distress Exam: Gen.: Well-developed morbidly obese female in no acute distress who answers questions slowly and is falling asleep occasionally through examination. HEENT normocephalic, atraumatic, pupils equal and reactive, neck supple trachea midline nontender to palpation, oromucosa moist nasal cavity patent open. There is dried speckles of blood on her lips. Cardiac: Regular rate and rhythm positive S1-S2 no murmurs or gallops appreciated. Radial pulses 2+ bilateral Respiratory: Clear to auscultation all lung carranza bilaterally Abdomen: Obese, nontender to palpation, on the lateral and posterior sides there are signs of pitting edema. Extremities: Bilateral lower extremities with 2+ pitting edema up to knees and along the posterior thigh is, hips and low back. Internal Medicine: Result - Labs CBC & Chem 7: 11/30/16 05:58 11/30/16 08:26 Labs: Short CBC 11/30/16 Range/Units 05:58 WBC 11.0 (4.3-11.1) K/mcL Hgb 7.0 L (11.5-15.4) g/dL Hct 22.3 L (35.3-44.9) % Plt Count 336 (140-400) K/mcL Neutrophils # 8.0 (1.6-8.9) K/mcL BMP 11/30/16 11/30/16 05:58 08:26 Sodium 135 L Potassium 5.7 H 5.7 H Chloride 97 L Carbon Dioxide 25 BUN 109 H Creatinine 3.76 H Glucose 276 H Calcium 8.7 Cardiac Enzymes 11/30/16 Range/Units 08:26 Troponin I 0.02 (0-0.03) ng/mL - ABG Interpretation ABG results: ABG ABG pH 7.38 pH Units (7.32-7.45) 11/30/16 11:24 ABG pCO2 43 mmHg (35-45) 11/30/16 11:24 ABG pO2 124 mmHg (85-104) H 11/30/16 11:24 ABG O2 Saturation 99 % (95-98) H 11/30/16 11:24 PT/INR, D-dimer PT 13.3 Seconds (9.4-12.1) H 11/30/16 02:30 D-Dimer 3305 ng/mLFEU (0-500) H 11/30/16 02:30 - Impressions Impressions Chest CT 11/30/16 05:25 IMPRESSION: 1. Mild effusions with interstitial pulmonary changes and body wall edema of fluid overload. 2. Bilateral pulmonary ground-glass and consolidative changes which could represent persistent or recurrent atypical pneumonia versus possible vasculitis with alveolar hemorrhage. 3. Stable mild mediastinal and probable hilar lymphadenopathy which could be reactive in nature. 4. No definite primary malignancy identified. 5. Extensive arterial calcifications which may relate to chronic renal disease. 6. Mild fluid distention of the esophagus which could relate to esophageal dysmotility or reflux. D/ / 11/30/2016 07:50:38 Allen Hayes MD / mechelle Interpreting Provider: Allen Hayes MD Pulmonary Perfusion Imaging 11/30/16 07:42 IMPRESSION: Low Probability for Pulmonary Embolus. D/ / Antony Hayden MD / Antony Hayden MD Interpreting Provider: Antony Hayden MD Sinuses CT 11/30/16 10:00 IMPRESSION: Irregularity of the mucosa of the inferior nasal turbinates bilaterally and question of debris adjacent to the left inferior nasal turbinate. Otherwise no evidence for sinus disease. D/ / Martin Dee MD / Martin Dee MD Interpreting Provider: Martin Dee MD Consult Discharge Plan - Plan Referrals: NO,PCP [Primary Care Provider] - <Peter Phoenix - Last Filed: 11/30/16 19:58> Date of Encounter: 11/30/16 - Constitutional Vitals: Temp Pulse Resp BP Pulse Ox 97.4 F L 69 16 116/71 100 11/30/16 14:36 11/30/16 14:36 11/30/16 16:09 11/30/16 14:36 11/30/16 16:09 Internal Medicine: Result - Labs CBC & Chem 7: 11/30/16 05:58 11/30/16 08:26 - ABG Interpretation ABG results: ABG ABG pH 7.38 pH Units (7.32-7.45) 11/30/16 11:24 ABG pCO2 43 mmHg (35-45) 11/30/16 11:24 ABG pO2 124 mmHg (85-104) H 11/30/16 11:24 ABG O2 Saturation 99 % (95-98) H 11/30/16 11:24 PT/INR, D-dimer PT 13.3 Seconds (9.4-12.1) H 11/30/16 02:30 D-Dimer 3305 ng/mLFEU (0-500) H 11/30/16 02:30 - Attending Attestation I examined this patient and my medical decision-making was reviewed with the Resident Physician, Dr. Oglesby. I agree with the documented findings, disposition and treatment plan as described except to the extent set forth below. We will stop the Unasyn. Continue with Zosyn. We will consult palliative care.
[2016-11-30] MEDS: *HR* OxyCODONE Immed Rel 5 MG TABLET PO PRN (15:02)
--- NOTE | 2016-11-30 17:51 | Electrocardiograph Report ---
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
[2016-11-30] MEDS: Insulin LISPRO 300 UNITS/3 ML VIAL SQ SCH ×2 (18:11→21:20)
[2016-11-30] MEDS: Piperacillin/Tazobactam 3.375 GM in D5% in Water (Mini-Bag+) 100 ML IVPB SCH (18:55)
--- NOTE | 2016-11-30 20:36 | Venous Imaging Report ---
LE Venous Duplex Patient Name:Violeta Dsouza Order Number:[id number] Procedure Date:11/30/2016 Date:1945ge:71 yrs Gender:Female Location:[facility] Room #: 3A11 Desk Operator:Ricco Michaels RDCS Referring MD:Shan Ordaz DO director airport operations:None Reading MD:Rick Browne MD Study Quality:Technically Limited Primary Indications:Rule out DVT Secondary Indications: Risk Factors Yes/No None Impressions: Normal right lower extremity deep venous exam. Acute superficial thrombosis is present in the right lesser saphenous vein. Normal left lower extremity superficial and deep venous exam. Recommendations: Unable to r/o DVT per ultrasound d/t limited visibilty. After imaging the patient returned to their room. Findings Venous Duplex Results: Right: Venous imaging of the lower extremity reveals full patency and normal vessel compressibility of the right distal iliac, right common femoral, right popliteal and right great saphenous. Doppler signals in the evaluated veins were normal. There is an acute occlusive thrombus seen in the right lesser saphenous. It demonstrates an incompressible vein. Flow was absent and it did not augment. The right superficial femoral and right posterior tibial veins were not well visualized. The right peroneal vein was not assessed. Left: Venous imaging of the lower extremity reveals full patency and normal vessel compressibility of the left distal iliac, left common femoral, left popliteal, left great saphenous and left lesser saphenous. Doppler signals in the evaluated veins were normal. The left superficial femoral and left posterior tibial veins were not well visualized. The left peroneal vein was not assessed. Lower Extremity Venous Duplex Side Vein Compress Spontaneous Flow Augment Diameter (cm) Depth (cm) Right Distal Iliac Normal yes Phasic yes Right Common Femoral Normal yes Phasic yes Right Superficial Femoral Right Popliteal Normal yes Phasic yes Right Posterior Tibial Right Peroneal Right Great Saphenous Normal yes Phasic yes Right Lesser Saphenous None no Absent no Left Distal Iliac Normal yes Phasic yes Left Common Femoral Normal yes Phasic yes Left Superficial Femoral Left Popliteal Normal yes Phasic yes Left Posterior Tibial Left Peroneal Left Great Saphenous Normal yes Phasic yes Left Lesser Saphenous Normal yes Phasic yes Updated by Rick Browne MD on 11/30/2016 8:29:22 PM electronically signed on 11/30/2016 8:29:35 PM with status of Final
--- NOTE | 2016-11-30 21:24 | Event Note ---
<Damián Jean - Last Filed: 12/01/16 02:07> Date of Encounter: 12/01/16 Time of Encounter: 20:40 Paged concerning elevated trop:admission .03-->3.2, hyperkalemia, anemia -Patient has renal failure, working diagnosis of hemophysis, anemia. Evaluated patient at bedside. Was resting comfortably and sleeping upon arrival. Denies previous AL, cath or stent placement. Denies CP/SOB. -Ordered Stat EKG, reordered trop in 6h, ECHO, cardio consult, transfusion of 2PRBC, redraw of K. -Dr Phoenix is aware. Spoke with him in person regarding results. Instructed to order ECHO, EKG, "baby" aspirin, do transfusion. -ECHO on 10/09/16 showed EF of 55% and was a limited study with poor diagnostic ability. Ordered enhanced ECHO for this reason. EKG showed no acute changes compared to previous. Patient had been getting abx, but not NS at rate of 75ml/ hr. Placed patient NPO incase cath needed. Not anticoagulating-anemic and working diagnosis of hemophysis and recieving blood transfusions. However, patient states single episode of blood tinged sputum. Denies another episode, no black/tarry stools/blood noticed in stool. Per the nurse, there was a moderate vaginal clot. Consider pelvic ultrasound to evaluate. Patient denies urinary problems and did not report profuse vaginal bleeding. Possible anemia from renal failure. Patient already received aspirin, so did not reorder. Patient is having Bowel movements. Reordered Kayexalate and lactulose for hyperkalemia (redraw 5.8). Case and all orders personally discussed with attending. Discussed code status with patient. Wishes to remain DNR-CCA-DNI. Does want cath if warranted. <AnnaAvni Marekl - Last Filed: 12/05/16 06:29> Date of Encounter: 12/01/16 My signature below is to certify that this patient is under my care and that I, or the Resident Physician, Dr. Damián Jean, working with me, has had a face -to-face encounter with this patient.
[2016-11-30] MEDS ORDERED: 0.9 % Sodium Chloride 250 ML ONE (23:44)
[2016-12-01] MEDS: Acetaminophen 325 MG TABLET PO PRN (01:11)
[2016-12-01] MEDS ORDERED: Lactulose Oral Soln 20 GM/30 ML UDC PO ONE (02:02)
[2016-12-01] MEDS ORDERED: 0.9 % Sodium Chloride 250 ML ONE (03:17)
[2016-12-01] MEDS: Ipratropium/Albuterol Neb 3 ML IH SCH ×4 (04:05→22:27)
[2016-12-01 04:26] LABS: Albumin/Globulin Ratio 0.4 (1.1-2.2); Bilirubin,Total 0.5 mg/dL (0.2-1.2); Calcium 8.3 mg/dL (8.6-10.8); Globulin 4.7 g/dL (2.4-3.5); Potassium 5.6 mEq/L (3.5-4.5); Total Protein 6.7 g/dL (6.0-8.3)
[2016-12-01] MEDS: 0.9 % Sodium Chloride 1,000 ML IVC SCH ×3 (07:49→21:45)
[2016-12-01] MEDS: Perflutren Lipid Microsphere 1.3 ML in 0.9 % Sodium Chloride 8.7 ML IVP ONE ×2 (07:50→09:03)
[2016-12-01] MEDS: Azithromycin 500 MG in D5% in Water 250 ML IVPB SCH (08:53)
[2016-12-01] MEDS: Pantoprazole 40 MG VIAL IVP SCH (08:54)
--- NOTE | 2016-12-01 09:01 | Cardiology Consult Note ---
Date of Encounter: 12/01/16 Time of Encounter: 08:30 Assessment and Plan (1) Elevated troponin Current Visit: No Status: Acute Per cardiology: -Elevated troponin peak at 4.09. -Troponin elevation in the setting of anemia, PRADEEP, UTI. -ECG with no ischemic changes noted. -Echocardiogram pending. -Limited Echo 10/09/16 with EF 55%, all visualized chappell with normal motion. -Patient denies chest, arm, or neck pain. -On asa, statin, beta frank, and imdur. -Discussed at length with patient. Discussed cardiac cath at this point would not be a viable option due to anemia with hemoglobin 6.3, requiring blood transfusion and PRADEEP with creatinine 3.78, not on dialysis. Patient states understanding and agrees with medical management. Discussed and reviewed with who also agrees with medical management at this time. Can be re- evaluated in outpatient setting. (2) Hemoptysis Current Visit: Yes Status: Acute Per cardiology: -Reported episode of coughing up blood at [facility], -Hemoglobin 6.3 on admission to [facility]., required 2 PRBC transfusions. -KNown anemia with baseline hemoglobin 7-8. -May be contributing to elevated troponin. -Management per primary service. (3) UTI (urinary tract infection) Current Visit: Yes Status: Acute Per cardiology: -Urine culture prelimary positive for gram positive cocci. -On antibiotics. -Management per primary service. (4) Acute kidney injury superimposed on chronic kidney disease Current Visit: Yes Status: Acute Per cardiology: -KNown CKD with baseline creatinine 1.3-2.3. -Creatinine this admission 3.78, GFR 12. -Patient is not on dialysis. -Nephrology consulted. -May be contributing to elevated troponin. -Management per primary and nephrology services. (5) Anemia of chronic disease Current Visit: No Status: Chronic Per cardiology: -Known anemia of chronic disease. -Baseline hemoglobin 7-8. -Hemoglobin this admission noted to be 6.3. -Required 2 PRBC transfusions. -May be contributing to elevated troponin. (6) Chronic diastolic CHF (congestive heart failure), NYHA class 3 Current Visit: Yes Status: Chronic Per cardiology: -Chronic diastolic heart failure. -Echocardiogram 05/2016 with moderate diastolic dysfunction. -No crackles noted per auscultation of lungs. -Bilateral lower extremity pitting edema noted, however patient states is about baseline. -No diuresis at this time due to creatinine 3.78. Discussion w patient/family: The assessment and plan as outlined above was discussed with the patient who expressed understanding and agreement. All questions were answered. Thank you for involving us in the care of your patient. Please call with any questions. Discussed and reviewed with . History of Present Illness Consult date: 12/01/16 Requesting physician: Damián Jean Consult reason: NSTEMI vs Renal failure Chief complaint: coughed up blood History of present illness: Ms. Dsouza is a 71 year old female with a relevant past medical history of CAD, DM, HTN, asthma, hyperlipidemia, morbid obesity, sleep apnea, TIA, PVD, NSTEMI, CVA, CKD. Patient [facility] at [facility] when she coughed up blood. Patient was taken to [facility]. Cardiology was consulted for elevated troponin. Patient denies chest, arm, or neck pain. Patient denies increased shortness of breath or increased fatigue. Past Med Surg Social Fam HX - Past Medical History Attestation: Yes The following information was validated with the patient. Source: patient, old records reviewed Medical history: asthma, CHF, COPD, CVA, diabetes, hypertension, renal disease, other Psychiatric history: no psych history - Past Surgical History Surgical History: no surgical history - Social History Smoking Status: Never smoker Smokeless Tobacco Status: No Alcohol use: none Drug use: none - Family History Father Living Status: Hx Family Cancer: Yes Mother Living Status: Hx Family Cardiac Disorders: No Hx Family Respiratory Disorders: No Hx Family Cancer: Yes Hx Family GI Disorders: No Hx Family Endocrine Disorder: No Hx Family Neuromuscular Disorders: No Hx Family Neurologic Disorders: No Hx Family HEENT Disorders: No Hx Family Autoimmune Disorders: No Medications and Allergies Cholecalciferol (Vitamin D3) [Vitamin D3] 50,000 unit PO QWEEK 05/30/16 [History ] Gabapentin [Neurontin] 300 mg PO BID 05/30/16 [History] Hydralazine HCl 100 mg PO Q8H 05/30/16 [History] Insulin ASPART [NovoLOG] 1 - 5 unit SQ ACHS 05/30/16 [History] Isosorbide MONOnitrate (24 HR) [Imdur] 30 mg PO DAILY 05/30/16 [History] CloNIDine HCl [Clonidine HCl] 0.2 mg PO BID #60 tab 06/04/16 [Rx] Aspirin 81 mg PO DAILY 07/10/16 [History] Insulin DETEMIR [Levemir] 50 unit SQ QAM 07/10/16 [History] Insulin DETEMIR [Levemir] 55 unit SQ HS 07/10/16 [History] Acetaminophen [Tylenol] 650 mg PO Q6HR PRN #0 tablet 07/20/16 [Rx] Ipratropium/Albuterol Neb [Duoneb] 3 ml IH [id number] inhsol 07/20/16 [Rx] Tramadol HCl [Ultram] 50 mg PO QID PRN #10 tab 07/20/16 [Rx] Atorvastatin Calcium [Lipitor] 80 mg PO DAILY 07/31/16 [History] Budesonide/Formoterol 160/4.5 [Symbicort 160/4.5] 2 puff IH BID 07/31/16 [ History] ClonazePAM [Klonopin] 1 mg PO TID PRN 07/31/16 [History] Clopidogrel [Plavix] 75 mg PO DAILY 07/31/16 [History] Levothyroxine [Synthroid] 25 mcg PO DAILY 07/31/16 [History] Loperamide [Imodium] 2 mg PO Q4HR PRN 07/31/16 [History] Pantoprazole Sodium [Protonix] 40 mg PO DAILY 07/31/16 [History] Saline Nasal [place] [Mcnairy Nasal [place]] 2 spray NS TID 07/31/16 [History] Tiotropium [Spiriva] 18 mcg IH DAILY 07/31/16 [History] Furosemide [Lasix] 40 mg PO BID #0 08/12/16 [Rx] Lisinopril [Zestril] 5 mg PO DAILY #0 tablet 08/12/16 [Rx] Metoprolol Succinate 25 mg PO DAILY #30 tab.er.24h 08/12/16 [Rx] Spironolactone [Aldactone] 12.5 mg PO DAILY tablet 08/12/16 [Rx] Citalopram [CeleXA] 20 mg PO DAILY 10/07/16 [History] Furosemide [Lasix] 20 mg PO QPM 10/07/16 [History] Loratadine [Claritin] 10 mg PO DAILY 10/07/16 [History] Multivitamin [One Daily Multivitamin] 1 tab PO DAILY 10/07/16 [History] Allergies No Known Allergies Allergy (Verified 07/24/16 16:19) All Systems Review: A 10-system review of systems was performed and is negative for pertinent findings except as documented above in the HPI. - Cardiovascular Cardiovascular: as per HPI - Respiratory Respiratory: hemoptysis Physical Examination Vital Signs, Last 4 Hours Temp Pulse Resp BP Pulse Ox 12/01/16 07:20 97.9 F 70 18 132/73 98 12/01/16 06:39 97.9 F 69 20 139/75 97 General: Conversant, No Apparent Distress HEENT: Atraumatic, Normocephaly, Mucus Membranes Moist Neck: No JVD, Normal carotid pulses Cardiac: Reg Rate and Rhythm, Normal S1 and S2, No Murmur Lungs: Other (Lung sounds diminished. ) Neuro: Alert and responsive, No focal deficits noted Abdomen: Soft, Non-Tender Skin: No rashes noted on visualized skin Musculoskeletal: No Chest Wall Tenderness Extremities: No Clubbing, No Cyanosis, Normal Pulses, Other (Right lower extremity with 2+ pitting edema. Left lower extremity with 1+ pitting edema. ) Results 12/01/16 09:27 12/01/16 04:03 Lab Results Impressions Chest CT 11/30/16 05:25 IMPRESSION: 1. Mild effusions with interstitial pulmonary changes and body wall edema of fluid overload. 2. Bilateral pulmonary ground-glass and consolidative changes which could represent persistent or recurrent atypical pneumonia versus possible vasculitis with alveolar hemorrhage. 3. Stable mild mediastinal and probable hilar lymphadenopathy which could be reactive in nature. 4. No definite primary malignancy identified. 5. Extensive arterial calcifications which may relate to chronic renal disease. 6. Mild fluid distention of the esophagus which could relate to esophageal dysmotility or reflux. D/ / 11/30/2016 07:50:38 Allen Hayes MD / mechelle Interpreting Provider: Allen Hayes MD Pulmonary Perfusion Imaging 11/30/16 07:42 IMPRESSION: Low Probability for Pulmonary Embolus. D/ / Antony Hayden MD / Antony Hayden MD Interpreting Provider: Antony Hayden MD Sinuses CT 11/30/16 10:00 IMPRESSION: Irregularity of the mucosa of the inferior nasal turbinates bilaterally and question of debris adjacent to the left inferior nasal turbinate. Otherwise no evidence for sinus disease. D/ / Martin Dee MD / Martin Dee MD Interpreting Provider: Martin Dee MD Active Medications Acetaminophen (Tylenol) 650 mg PO Q6HR PRN PRN Reason: Mild Pain (1-3) Stop: 06/01/17 07:26 Last Admin: 12/01/16 01:11 Dose: 650 mg Albuterol Sulfate (Proventil Neb) 2.5 mg IH Q2H PRN; Protocol PRN Reason: Shortness Of Breath/Wheezing Stop: 06/01/17 05:49 Albuterol/Ipratropium (Duoneb) 3 ml IH [id number] [facility] PRN Reason: Protocol Stop: 06/01/17 08:01 Last Admin: 12/01/16 04:05 Dose: 3 ml Aspirin (Aspirin) 81 mg PO DAILY [facility] Stop: 06/01/17 09:01 Last Admin: 12/01/16 09:07 Dose: 81 mg Atorvastatin Calcium (Lipitor) 80 mg PO DAILY [facility] Stop: 06/01/17 09:01 Last Admin: 11/30/16 10:59 Dose: 80 mg Benzonatate (Tessalon) 200 mg PO TID PRN PRN Reason: Cough Stop: 06/01/17 07:26 Citalopram Hydrobromide (Celexa) 20 mg PO DAILY [facility] Stop: 06/01/17 09:01 Last Admin: 12/01/16 09:07 Dose: 20 mg Clonazepam (Klonopin) 1 mg PO TID PRN PRN Reason: Anxiety Stop: 06/01/17 07:38 Dextrose/Water (Dextrose 50% (Syg)) 25 ml IVP AD PRN PRN Reason: Hypoglycemia Stop: 06/01/17 14:10 Docusate Sodium (Colace) 100 mg PO BID PRN PRN Reason: Constipation Stop: 06/01/17 07:26 Gabapentin (Neurontin) 300 mg PO BID [facility] Stop: 06/01/17 09:01 Last Admin: 12/01/16 09:07 Dose: 300 mg Glucagon (Glucagen) 1 mg IM ONCE PRN PRN Reason: Hypoglycemia Stop: 06/01/17 14:10 Glucose (Gluctose) 15 gm PO ONCE PRN PRN Reason: Hypoglycemia Stop: 06/01/17 14:10 Glucose (Gluctose) 30 gm PO ONCE PRN PRN Reason: Hypoglycemia Stop: 06/01/17 14:10 Guaifenesin (Mucinex) 600 mg PO BID PRN PRN Reason: Congestion Stop: 06/01/17 07:26 Sodium Chloride (0.9 % Sodium Chloride) 1,000 mls @ 75 mls/hr IVC .[id number] [facility] Stop: 06/01/17 05:31 Last Admin: 12/01/16 07:49 Dose: Not Given Azithromycin 500 mg/ Dextrose 250 mls @ 252 mls/hr IVPB Q24H [facility] Stop: 06/01/17 08:01 Last Admin: 12/01/16 08:53 Dose: 252 mls/hr Piperacillin Sod/Tazobactam (Sod 3.375 gm/ Dextrose) 100 mls @ 25 mls/hr IVPB Q12H [facility] PRN Reason: Protocol Stop: 06/01/17 19:01 Last Infusion: 12/01/16 06:38 Dose: Infused Dextrose (Dextrose 5%) 1,000 mls @ 100 mls/hr IVC .Q10H PRN PRN Reason: HYPOGLYCEMIA Stop: 06/01/17 14:10 Insulin Human Lispro (Humalog) 0 units SQ HS [facility] PRN Reason: Protocol Stop: 06/01/17 21:01 Last Admin: 11/30/16 21:20 Dose: Not Given Insulin Human Lispro (Humalog) 0 units SQ TIDAC [facility] PRN Reason: Protocol Stop: 06/01/17 16:31 Last Admin: 11/30/16 18:11 Dose: 4 units Isosorbide Mononitrate (Imdur) 30 mg PO DAILY [facility] Stop: 06/01/17 09:01 Last Admin: 12/01/16 09:06 Dose: 30 mg Levothyroxine Sodium (Synthroid) 25 mcg PO DAILY [facility] Stop: 06/01/17 09:01 Last Admin: 12/01/16 09:06 Dose: 25 mcg Loratadine (Claritin) 10 mg PO DAILY [facility] PRN Reason: Protocol Stop: 06/01/17 09:01 Last Admin: 12/01/16 09:07 Dose: 10 mg Metoprolol Succinate (Toprol Xl) 25 mg PO DAILY [facility] Stop: 06/01/17 09:01 Last Admin: 12/01/16 09:07 Dose: 25 mg Morphine Sulfate (Morphine Sulfate) 2 mg IVP Q4HR PRN PRN Reason: Severe Pain (7-10) Stop: 06/01/17 07:26 Naloxone HCl (Narcan) 0.4 mg IVP Q2MIN PRN PRN Reason: Opioid Reversal Stop: 06/01/17 05:21 Ondansetron HCl (Zofran) 4 mg IVP Q8HR PRN PRN Reason: Nausea And Vomiting Stop: 06/01/17 07:26 Oxycodone HCl (Roxicodone) 5 mg PO Q6HR PRN PRN Reason: Moderate Pain (4-6) Stop: 06/01/17 07:26 Last Admin: 11/30/16 15:02 Dose: 5 mg Pantoprazole Sodium (Protonix) 40 mg IVP DAILY [facility] Stop: 06/01/17 09:01 Last Admin: 12/01/16 08:54 Dose: 40 mg Sodium Chloride (Mcnairy Nasal [place]) 2 spray NS TID [facility] Stop: 06/01/17 09:01 Last Admin: 11/30/16 21:42 Dose: Not Given Laboratory Tests 10/30/16 11/03/16 11/08/16 05:45 11:10 05:42 Hgb 7.6 L Hct Potassium Creatinine 1.73 H 2.18 H Est GFR (Non-Af Amer) Troponin I TSH 11/13/16 11/30/16 11/30/16 05:05 02:30 02:30 Hgb 7.4 L 6.3 L Hct 20.4 L Potassium Creatinine Est GFR (Non-Af Amer) Troponin I 0.01 TSH 11/30/16 11/30/16 11/30/16 05:58 08:26 08:26 Hgb 7.0 L Hct 22.3 L Potassium Creatinine Est GFR (Non-Af Amer) Troponin I 0.02 TSH 4.580 11/30/16 11/30/16 12/01/16 14:52 20:07 04:03 Hgb Hct Potassium 5.6 H Creatinine 3.78 H Est GFR (Non-Af Amer) 12 L Troponin I 1.03 H* 3.27 H* TSH 12/01/16 04:03 Hgb Hct Potassium Creatinine Est GFR (Non-Af Amer) Troponin I 4.09 H* TSH - Imaging and Cardiology Chest Xray: report reviewed Echo: pending, report reviewed Other Results: CT chest, CT sinuses, VEntilation perfusion scan reviewed. - EKG Interpretation EKG results cardiology: personally reviewed (ECG with SR, First degree block, HR 61.), other (Telemetry reviewed with average HR 65, occasional PVCs, and PACs noted.) Consult Discharge Plan - Plan Referrals: NO,PCP [Primary Care Provider] -
[2016-12-01] MEDS: Levothyroxine 25 MCG TABLET PO SCH (09:06)
[2016-12-01] MEDS: Isosorbide MONOnitrate (24 HR) 30 MG TAB.ER.24H PO SCH (09:06)
[2016-12-01] MEDS: Aspirin 81 MG TAB.CHEW PO SCH (09:07)
[2016-12-01] MEDS: Gabapentin 300 MG CAPSULE PO SCH ×2 (09:07→21:45)
[2016-12-01] MEDS: Metoprolol XL (24 HR) Succ 25 MG TAB.ER.24H PO SCH (09:07)
[2016-12-01] MEDS: Loratadine 10 MG TABLET PO SCH (09:07)
[2016-12-01] MEDS: Insulin LISPRO 300 UNITS/3 ML VIAL SQ SCH ×4 (09:14→21:45)
[2016-12-01] MEDS: Piperacillin/Tazobactam 3.375 GM in D5% in Water (Mini-Bag+) 100 ML IVPB SCH ×2 (09:20→18:50)
[2016-12-01] MEDS: Saline Nasal Spray 44 ML BOTTLE NS SCH ×3 (09:23→21:45)
[2016-12-01 09:39] LABS: Basophils % 0.3 %; Eosinophils # 0.3 K/mcL (0.0-0.6); Eosinophils % 3.7 %; Hematocrit 27.4 % (35.3-44.9); Hemoglobin 8.5 g/dL (11.5-15.4); Immature Granulocytes % 0.8 % (0-4); Lymphocytes # 0.8 K/mcL (0.6-4.6); Mean Corpuscular Hemoglobin 29.4 pg (28.0-33.3); Mean Corpuscular Volume 94.8 fL (83.0-100.0); Mean Platelet Volume 8.9 fL (9.4-12.4); Monocytes # 0.7 K/mcL (0.0-1.3); Monocytes % 8.2 %; Neutrophils # 6.8 K/mcL (1.6-8.9); Platelet Count 257 K/mcL (140-400); Red Blood Count 2.89 M/mcL (3.82-4.97); Red Cell Distribution Width 16.2 % (11.5-14.5)
--- NOTE | 2016-12-01 10:20 | ECHO - Doppler Report ---
Echo with Imaging Enhancement Agent Name: Violeta Dsouza Date of Study: 12/01/2016 Date: 1945 Ht: 63.0 in Medical Record#: [id number] Age: 71 Wt: 270.0 lb Gender: Female BSA: 2.2 Order #: [id number] Location: [facility] Room #: 3A11 Reading Physician: Hank Monge MD, [facility] Foil Cutter: Tonia Fernandez Ordering Physician: Damián Jean Primary Physician: None Indications: Increase troponin Impressions: Mild LV systolic dysfunction, LVEF 40-45%. There is global LV hypokinesis. Moderate left ventricular diastolic dysfunction. Normal right ventricular size and function. Mild mitral regurgitation. No evidence of pulmonary hypertension. Left Ventricular Wall Motion: Rest Echo Findings The apex, apical inferior, mid inferior, basal inferior, apical anterior, mid anterior, basal anterior, apical septal, mid inferior septal, basal inferior septal, apical lateral, mid anterior lateral, basal anterior lateral, mid anterior septal, mid inferior lateral, basal anterior septal and basal inferior lateral chappell were hypokinetic. Findings: Study Quality * Suboptimal echo windows. ECG Findings * Normal sinus rhythm. Left Ventricle * Mild LV systolic dysfunction, LVEF 40-45%. There is global LV hypokinesis. * Normal LV chamber size and wall thickness. * Moderate left ventricular diastolic dysfunction. Right Ventricle * Normal right ventricular size and function. Left Atrium * Normal left atrial size. Right Atrium * Normal right atrial size. Aorta * Normally sized aortic root. Pericardium * There is no pericardial effusion present. IVC * The IVC was not visualized. Aortic Valve * Aortic valve not well visualized. * No aortic stenosis. * No aortic regurgitation. Mitral Valve * Moderate mitral annular calcification * No mitral stenosis. * Mild mitral regurgitation. Tricuspid Valve * Tricuspid valve not well visualized. * No tricuspid stenosis. * Trace tricuspid regurgitation. * No evidence of pulmonary hypertension. Pulmonic Valve * Pulmonic valve not well visualized. * No pulmonic stenosis. * Trace pulmonic regurgitation. History Hypertension Diabetes Hypercholesteremia Family History of CAD Congestive Heart Failure 10/09/2016 a Previous Echo was performed. Contrast: Definity 1.3 ml in 8.7 ml of saline 8 ml. Measurements: BP: 139/ 75 2D Normal Values RVIDd: 3.40 cm IVSd: .90 cm 0.6 - 1.0 cm LVIDd: 4.20 cm 3.7 - 5.6 cm LVPWd: .90 cm 0.6 - 1.1 cm LVIDs: 3.00 cm 1.5 - 3.6 cm AO: 2.40 cm < 4.0 cm LA volume: 53 Mitral Valve Peak E:1.33 m/sec Peak A:1.06 m/sec E/A Ratio:1.3 Peak E' Lat Sesar:7.31 cm/s Peak E' Med Sesar:8.09 cm/s E/E' Lat Ratio:18.2 E/E' Med Ratio:16.4 Tricuspid Valve TV Regurg Peak Grad: 27.00mmHg TV Regurg Peak Sesar: 2.58m/sec Updated by Hank Monge MD, [facility] on 12/01/2016 10:15:59 AM electronically signed on 12/01/2016 10:16:28 AM with status of Final Wall Motion Sexton: 1=Normal, 2=Hypokinesis, 3=Akinesis, 4=Dyskinesis, 5=Aneurysmal, 6=Hyperkinetic, X=Not Visualized (Blank)=Missing
--- NOTE | 2016-12-01 10:29 | Internal Med Progress Note ---
Date of Encounter: 12/01/16 Time of Encounter: 10:27 - Assessment and plan (1) Cellulitis Current Visit: Yes Status: Acute Assessment and plan: acute abdominal cellulitis currently on Zosyn consider Vancomycin if not improving lashae area Qualifiers: Site of cellulitis of trunk: abdominal wall Qualified Code(s): L03.311 - Cellulitis of abdominal wall (2) Elevated troponin Current Visit: No Status: Acute Assessment and plan: possible NSTEMI , no heparin due to hemoptysis candiology consulted only medical management and palliative care was recommended not candidate for cardiac cath. EF 40-45% continue ASA, atorvastatin, imdur and metoprolol (3) UTI (urinary tract infection) Current Visit: No Status: Acute Assessment and plan: grew enterococcus on last culture, new culture pending growing gram positive cocci on Zosyn Day 2 change antibiotic according to sensitivity report Qualifiers: Urinary tract infection type: site unspecified Hematuria presence: without hematuria Qualified Code(s): N39.0 - Urinary tract infection, site not specified (4) Hyperkalemia Current Visit: No Status: Resolved Assessment and plan: consider kayexelate if not improving (5) PRADEEP (acute kidney injury) Current Visit: No Status: Resolved Assessment and plan: acute on chronic renal failure may use IVF nephrology consulted hold nephrotoxic agents (6) Chronic renal failure, stage 4 (severe) Current Visit: No Status: Chronic (7) Diastolic CHF, chronic Current Visit: No Status: Chronic Assessment and plan: stable (8) Morbid obesity with BMI of 45.0-49.9, adult Current Visit: No Status: Chronic (9) HCAP (healthcare-associated pneumonia) Current Visit: No Status: Acute Assessment and plan: came complaining of hemoptysis ( not present at the moment) on Zosyn discontinue azithromycin (10) Anemia of chronic disease Current Visit: No Status: Chronic Assessment and plan: consider transfusing No evidence of blood loss (11) Diabetes mellitus Current Visit: No Status: Chronic Assessment and plan: continue ISS Qualifiers: Diabetes mellitus type: type 2 Diabetes mellitus complication status: with kidney complications Diabetes mellitus complication detail: with chronic kidney disease Diabetes mellitus general surgeon insulin use: with prison use Chronic kidney disease stage: stage 3 (moderate) Qualified Code(s): E11.22 - Type 2 diabetes mellitus with diabetic chronic kidney disease; N18.3 - Chronic kidney disease, stage 3 (moderate); Z79.4 - shelter (current) use of insulin (12) Lower extremity pain Current Visit: No Status: Acute Assessment and plan: due to prior fracture, bedridden Qualifiers: Laterality: right Qualified Code(s): M79.604 - Pain in right leg - Subjective Interval history: Complains of abdominal pain on the right side, denies fever, mild shortness of breath, no CP. Has urinary retention , no diarrhea - Constitutional Vitals: Temp Pulse Resp BP Pulse Ox 97.9 F 70 18 132/73 98 12/01/16 07:20 12/01/16 07:20 12/01/16 07:20 12/01/16 07:20 12/01/16 07:20 General appearance: Present: cooperative, A&O X 3, morbidly obese, no acute distress - Head Head exam: Present: atraumatic, normocephalic - Eye Eye exam: Present: PERRL, conjuntiva pink, sclera anicteric Pupils: Present: PERRL - Neck Neck exam general surgery: Present: supple, trachea midline. Absent: lymphadenopathy - Respiratory Respiratory exam: Present: decreased breath sounds, CTAB. Absent: accessory muscle use, rales, rhonchi, wheezes - Cardiovascular Cardiovascular exam: Present: RRR, +S1, +S2. Absent: diastolic murmur, gallop, rubs, systolic murmur - GI/Abdominal GI/Abdominal exam: Present: distended, normal bowel sounds, soft, no peritoneal signs. Absent: tenderness - Extremities Exam Extremities exam: Present: warm, radial pulses palpable and symetrical. Absent : calf tenderness, cyanotic, pedal edema - Neurological Exam Neurological exam: Present: CN II-XII intact, oriented X3, no focal deficits. Absent: pronater drift, facial droop, speech deficit - Skin Skin exam: Present: dry, erythema (over right abdominal pannus). Absent: intact Internal Medicine: Result - Labs CBC & Chem 7: 12/01/16 09:27 12/01/16 04:03 Labs: Short CBC 12/01/16 Range/Units 09:27 WBC 8.7 (4.3-11.1) K/mcL Hgb 8.5 L D (11.5-15.4) g/dL Hct 27.4 L (35.3-44.9) % Plt Count 257 (140-400) K/mcL Neutrophils # 6.8 (1.6-8.9) K/mcL BMP 11/30/16 12/01/16 22:09 04:03 Sodium 137 Potassium 5.8 H 5.6 H Chloride 100 Carbon Dioxide 25 BUN 104 H Creatinine 3.78 H Glucose 128 H Calcium 8.3 L Cardiac Enzymes 11/30/16 12/01/16 12/01/16 Range/Units 20:07 04:03 09:27 Troponin I 3.27 H* 4.09 H* 3.02 H* (0-0.03) ng/mL Liver Function 12/01/16 Range/Units 04:03 Total Bilirubin 0.5 (0.2-1.2) mg/dL AST 63 H (5-34) Units/L ALT 28 (0-55) Units/L Alkaline Phosphatase 138 H (38-126) Units/L Albumin 2.0 L (3.5-5.0) g/dL - ABG Interpretation ABG results: ABG ABG pH 7.38 pH Units (7.32-7.45) 11/30/16 11:24 ABG pCO2 43 mmHg (35-45) 11/30/16 11:24 ABG pO2 124 mmHg (85-104) H 11/30/16 11:24 ABG O2 Saturation 99 % (95-98) H 11/30/16 11:24 PT/INR, D-dimer PT 13.3 Seconds (9.4-12.1) H 11/30/16 02:30 D-Dimer 3305 ng/mLFEU (0-500) H 11/30/16 02:30 Consult Discharge Plan - Plan Referrals: NO,PCP [Primary Care Provider] -
--- NOTE | 2016-12-01 10:44 | Nephrology Progress Note ---
Date of Encounter: 12/01/16 Time of Encounter: 10:30 Subjective Interval history: States feeling better today. Denies chest pain or productive cough. Objective - Vital Signs Vital signs: Vital Signs Temp Pulse Resp BP Pulse Ox 12/01/16 07:20 97.9 F 70 18 132/73 98 12/01/16 06:39 97.9 F 69 20 139/75 97 12/01/16 04:05 14 98 12/01/16 03:31 97.7 F 66 16 148/69 98 12/01/16 03:21 97.6 F 66 16 118/41 99 12/01/16 01:14 97.5 F L 65 14 128/48 99 12/01/16 00:55 127/84 12/01/16 00:47 97.6 F 65 16 75/32 100 11/30/16 23:20 97.5 F L 67 16 104/44 98 11/30/16 22:11 16 100 11/30/16 20:06 97.5 F L 65 18 93/54 98 11/30/16 16:09 16 100 Intake and Output 11/30/16 12/01/16 12/01/16 23:59 07:59 15:59 Intake Total 800 / 800 928 / 928 Output Total 0 / 0 Balance 800 / 800 928 / 928 Intake: IV Fluids 100 / 100 928 / 928 0.9 % Sodium Chloride 1, 928 / 928 000 ML @ 75 mls/hr IVC . [id number] [facility] Rx#: [id number] Zosyn 3.375 GM In 100 / 100 Dextrose 5% (Minibag+) 100 ML 100 ML @ 25 mls/hr IVPB Q12H [facility] Rx#: [id number] Oral 0 / 0 0 / 0 Blood Product 700 / 700 Rbcs Leuko Poor As-3 2nd 350 / 350 Unit [id number] Rbcs Leuko Poor As-3 Ph 350 / 350 Unit [id number] Output: Urine 0 / 0 Other: Stool Size Moderate Stool Consistency loose Stool Color Brown # Urine Diapers 0 # Bowel Movements 1 Blood Glucose* 171 143 - General Appearance General appearance: Present: well-developed, well-nourished, appears started age , obese EENT: Present: mucous membranes moist - Lab 12/01/16 09:27 12/01/16 04:03 Most recent lab results ABG pH 7.38 pH Units (7.32-7.45) 11/30/16 11:24 ABG pCO2 43 mmHg (35-45) 11/30/16 11:24 ABG pO2 124 mmHg (85-104) H 11/30/16 11:24 ABG HCO3 25.4 mEQ/L (21-27) 11/30/16 11:24 ABG O2 Saturation 99 % (95-98) H 11/30/16 11:24 Calcium 8.3 mg/dL (8.6-10.8) L 12/01/16 04:03 Phosphorus 7.4 mg/dL (2.3-4.7) H 11/30/16 05:58 Magnesium 2.6 mg/dL (1.6-2.6) 11/30/16 05:58 - VTE Documentation of Mechanical Device: Graduated compression elastic hosiery Consult Discharge Plan - Plan Referrals: NO,PCP [Primary Care Provider] -
--- NOTE | 2016-12-01 10:50 | Nephrology Consult Note ---
Date of Encounter: 12/01/16 Time of Encounter: 10:30 History of Present Illness - Reason for Consult Acute Kidney Injury - History of Present Illness A/P-PRADEEP in setting intravascular volume depletion on CKD with history of greatly fluctuating baseline creat 1.3-2.2. Continue IV fluids for another 24 hours if tolerating. Hold diuretics. Urine output 1300. Creat plateued 3.78. Ms. Dsouza is a 71 year old femal e that resides at [facility]. Presented to ER with chest pain and hemoptysis times one episode. Also a one week history of dysuria, UA positive for UTI and was started on Unasyn. Creat 3.76. K 6.2 treated with insulin, D5, albuterol, Ca glucanate,. D-Dimer elevated, venous dopplers not well visualized. CXR-Initial hgb 6.3, received 2 units PRBC's. 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 Other PMH-CHF, COPD, CVA, HTN, DM, HLD. Today she denies chest pain or productive cough. Denies difficulty in breathing.O2 2.5 L/NC. Mild pitting LE with compression hose. Past Med Surg Social Fam HX - Past Medical History Medical history: asthma, CHF, COPD, CVA, diabetes, hypertension, renal disease, other Psychiatric history: no psych history - Past Surgical History Surgical History: no surgical history - Social History Smoking Status: Never smoker Smokeless Tobacco Status: No Alcohol use: none Drug use: none - Family History Father Living Status: Hx Family Cancer: Yes Mother Living Status: Hx Family Cardiac Disorders: No Hx Family Respiratory Disorders: No Hx Family Cancer: Yes Hx Family GI Disorders: No Hx Family Endocrine Disorder: No Hx Family Neuromuscular Disorders: No Hx Family Neurologic Disorders: No Hx Family HEENT Disorders: No Hx Family Autoimmune Disorders: No Medications and Allergies Cholecalciferol (Vitamin D3) [Vitamin D3] 50,000 unit PO QWEEK 05/30/16 [History ] Gabapentin [Neurontin] 300 mg PO BID 05/30/16 [History] Hydralazine HCl 100 mg PO Q8H 05/30/16 [History] Insulin ASPART [NovoLOG] 1 - 5 unit SQ ACHS 05/30/16 [History] Isosorbide MONOnitrate (24 HR) [Imdur] 30 mg PO DAILY 05/30/16 [History] CloNIDine HCl [Clonidine HCl] 0.2 mg PO BID #60 tab 06/04/16 [Rx] Aspirin 81 mg PO DAILY 07/10/16 [History] Insulin DETEMIR [Levemir] 50 unit SQ QAM 07/10/16 [History] Insulin DETEMIR [Levemir] 55 unit SQ HS 07/10/16 [History] Acetaminophen [Tylenol] 650 mg PO Q6HR PRN #0 tablet 07/20/16 [Rx] Ipratropium/Albuterol Neb [Duoneb] 3 ml IH [id number] inhsol 07/20/16 [Rx] Tramadol HCl [Ultram] 50 mg PO QID PRN #10 tab 07/20/16 [Rx] Atorvastatin Calcium [Lipitor] 80 mg PO DAILY 07/31/16 [History] Budesonide/Formoterol 160/4.5 [Symbicort 160/4.5] 2 puff IH BID 07/31/16 [ History] ClonazePAM [Klonopin] 1 mg PO TID PRN 07/31/16 [History] Clopidogrel [Plavix] 75 mg PO DAILY 07/31/16 [History] Levothyroxine [Synthroid] 25 mcg PO DAILY 07/31/16 [History] Loperamide [Imodium] 2 mg PO Q4HR PRN 07/31/16 [History] Pantoprazole Sodium [Protonix] 40 mg PO DAILY 07/31/16 [History] Saline Nasal [place] [[place] Nasal [place]] 2 spray NS TID 07/31/16 [History] Tiotropium [Spiriva] 18 mcg IH DAILY 07/31/16 [History] Furosemide [Lasix] 40 mg PO BID #0 08/12/16 [Rx] Lisinopril [Zestril] 5 mg PO DAILY #0 tablet 08/12/16 [Rx] Metoprolol Succinate 25 mg PO DAILY #30 tab.er.24h 08/12/16 [Rx] Spironolactone [Aldactone] 12.5 mg PO DAILY tablet 08/12/16 [Rx] Citalopram [CeleXA] 20 mg PO DAILY 10/07/16 [History] Furosemide [Lasix] 20 mg PO QPM 10/07/16 [History] Loratadine [Claritin] 10 mg PO DAILY 10/07/16 [History] Multivitamin [One Daily Multivitamin] 1 tab PO DAILY 10/07/16 [History] Allergies No Known Allergies Allergy (Verified 07/24/16 16:19) Review of Systems All Systems: reviewed and no additional remarkable complaints except as stated Exam - Vital Signs Vital signs: Initial Vital Signs Temp Pulse Resp BP Pulse Ox 97.8 F 56 16 132/58 99 11/30/16 01:24 11/30/16 01:24 11/30/16 01:24 11/30/16 01:24 11/30/16 01:24 Vital Signs - Last 8 Hours Temp Pulse Resp BP Pulse Ox 12/01/16 10:30 97.6 F 78 18 113/70 98 12/01/16 07:20 97.9 F 70 18 132/73 98 12/01/16 06:39 97.9 F 69 20 139/75 97 12/01/16 04:05 14 98 12/01/16 03:31 97.7 F 66 16 148/69 98 12/01/16 03:21 97.6 F 66 16 118/41 99 Intake and Output 11/30/16 12/01/16 12/01/16 23:59 07:59 15:59 Intake Total 800 / 800 928 / 928 Output Total 0 / 0 Balance 800 / 800 928 / 928 Intake: IV Fluids 100 / 100 928 / 928 0.9 % Sodium Chloride 1, 928 / 928 000 ML @ 75 mls/hr IVC . [id number] BELLE Rx#: [id number] Zosyn 3.375 GM In 100 / 100 Dextrose 5% (Minibag+) 100 ML 100 ML @ 25 mls/hr IVPB Q12H BELLE Rx#: [id number] Oral 0 / 0 0 / 0 Blood Product 700 / 700 Rbcs Leuko Poor As-3 2nd 350 / 350 Unit [id number] Rbcs Leuko Poor As-3 Ph 350 / 350 Unit [id number] Output: Urine 0 / 0 Other: Stool Size Moderate Stool Consistency loose Stool Color Brown # Urine Diapers 0 # Bowel Movements 1 Blood Glucose* 171 143 - General Appearance General appearance: well-developed, well-nourished, appears started age, obese EENT: mucous membranes moist Neck: no JVD, no carotid bruit Respiratory: clear Cardiology: regular rate, regular rhythm Additional Comments: mild pitting LE edema Gastrointestinal: normoactive bowel sounds, no tenderness, distended Integumentary: no rash, warm and dry Neurologic: alert and oriented x3 Psychiatric: mood/affect appropriate, cooperative Results - Lab Results 12/01/16 09:27 12/01/16 04:03 Most recent lab results ABG pH 7.38 pH Units (7.32-7.45) 11/30/16 11:24 ABG pCO2 43 mmHg (35-45) 11/30/16 11:24 ABG pO2 124 mmHg (85-104) H 11/30/16 11:24 ABG HCO3 25.4 mEQ/L (21-27) 11/30/16 11:24 ABG O2 Saturation 99 % (95-98) H 11/30/16 11:24 Calcium 8.3 mg/dL (8.6-10.8) L 12/01/16 04:03 Phosphorus 7.4 mg/dL (2.3-4.7) H 11/30/16 05:58 Magnesium 2.6 mg/dL (1.6-2.6) 11/30/16 05:58 Consult Discharge Plan - Plan Referrals: NO,PCP [Primary Care Provider] -
[2016-12-01] MEDS: *HR* OxyCODONE Immed Rel 5 MG TABLET PO PRN (15:02)
[2016-12-01 20:11] LABS: Hematocrit 25.2 % (35.3-44.9)
[2016-12-02 02:33] LABS: Hematocrit 25.1 % (35.3-44.9); Mean Corpuscular HGB Conc 31.9 g/dL (31.6-35.5); Mean Corpuscular Hemoglobin 29.5 pg (28.0-33.3); Mean Corpuscular Volume 92.6 fL (83.0-100.0); Mean Platelet Volume 8.5 fL (9.4-12.4); Platelet Count 285 K/mcL (140-400); Red Blood Count 2.71 M/mcL (3.82-4.97); Red Cell Distribution Width 16.1 % (11.5-14.5)
[2016-12-02] MEDS: Ipratropium/Albuterol Neb 3 ML IH SCH ×4 (04:01→22:34)
[2016-12-02] MEDS: Acetaminophen 325 MG TABLET PO PRN (05:20)
[2016-12-02] MEDS: Piperacillin/Tazobactam 3.375 GM in D5% in Water (Mini-Bag+) 100 ML IVPB SCH ×2 (07:34→19:59)
[2016-12-02] MEDS: Insulin LISPRO 300 UNITS/3 ML VIAL SQ SCH ×4 (07:36→21:41)
[2016-12-02 08:48] LABS: Hemoglobin 8.5 g/dL (11.5-15.4)
--- NOTE | 2016-12-02 08:58 | Nephrology Progress Note ---
Date of Encounter: 12/02/16 Time of Encounter: 08:50 - Assessment and Plan (1) PRADEEP (acute kidney injury) Current Visit: No Status: Resolved PRADEEP in setting intravascular volume depletion on CKD with history of greatly fluctuating baseline creat 1.3-2.2. Poor oral intake, emesis during night, remains nauseated. Continue IV fluids for another 24 hours if tolerating. Hold diuretics. Urine output 950cc. Renal fct slowly improving, creat 3.58. Subjective Interval history: Denies chest pain or productive cough. Emesis during night, continues to be nauseated this morning. Objective - Vital Signs Vital signs: Vital Signs Temp Pulse Resp BP Pulse Ox 12/02/16 08:09 98.4 F 88 20 127/76 98 12/02/16 05:28 97.9 F 89 18 105/65 96 12/02/16 04:02 20 98 12/01/16 22:28 20 100 12/01/16 19:40 97.9 F 76 18 133/67 97 12/01/16 16:01 18 98 12/01/16 15:00 97.6 F 81 18 123/73 97 12/01/16 11:25 18 100 12/01/16 10:30 97.6 F 78 18 113/70 98 Intake and Output 12/01/16 12/02/16 12/02/16 23:59 07:59 15:59 Intake Total 1240 / 1240 100 / 100 0 / 0 Output Total 200 / 200 350 / 350 150 / 150 Balance 1040 / 1040 -250 / -250 -150 / -150 Intake: IV Fluids 1000 / 1000 100 / 100 0.9 % Sodium Chloride 1, 1000 / 1000 000 ML @ 75 mls/hr IVC . [id number] BELLE Rx#: [id number] Zosyn 3.375 GM In 100 / 100 Dextrose 5% (Minibag+) 100 ML 100 ML @ 25 mls/hr IVPB Q12H BELLE Rx#: [id number] Oral 240 / 240 0 / 0 0 / 0 Output: Catheter 200 / 200 350 / 350 150 / 150 Other: Meal Dinner Stool Size Smear Stool Color Brown # Bowel Movements 1 Weight 122.69 kg Blood Glucose* 120 106 106 Patient Weight 12/02/16 23:59 Weight 122.69 kg - General Appearance General appearance: Present: well-developed, well-nourished, appears started age , obese EENT: Present: mucous membranes moist Neck: Present: no JVD Respiratory: Present: clear Cardiology: Present: regular rate, regular rhythm Additional Comments: pitting pedal edema Gastrointestinal: Present: normoactive bowel sounds, no tenderness Integumentary: Present: warm and dry Neurologic: Present: alert and oriented x3 Psychiatric: Present: mood/affect appropriate, cooperative - Lab 12/02/16 08:27 12/02/16 02:26 Most recent lab results ABG pH 7.38 pH Units (7.32-7.45) 11/30/16 11:24 ABG pCO2 43 mmHg (35-45) 11/30/16 11:24 ABG pO2 124 mmHg (85-104) H 11/30/16 11:24 ABG HCO3 25.4 mEQ/L (21-27) 11/30/16 11:24 ABG O2 Saturation 99 % (95-98) H 11/30/16 11:24 Calcium 8.0 mg/dL (8.6-10.8) L 12/02/16 02:26 Phosphorus 7.4 mg/dL (2.3-4.7) H 11/30/16 05:58 Magnesium 2.6 mg/dL (1.6-2.6) 11/30/16 05:58 - VTE Documentation of Mechanical Device: Intermittent pneumatic compression device Consult Discharge Plan - Plan Referrals: NO,PCP [Primary Care Provider] -
[2016-12-02] MEDS: Gabapentin 300 MG CAPSULE PO SCH ×2 (09:51→21:45)
[2016-12-02] MEDS: Aspirin 81 MG TAB.CHEW PO SCH (09:51)
[2016-12-02] MEDS: Isosorbide MONOnitrate (24 HR) 30 MG TAB.ER.24H PO SCH (09:52)
[2016-12-02] MEDS: Loratadine 10 MG TABLET PO SCH (09:52)
[2016-12-02] MEDS: Levothyroxine 25 MCG TABLET PO SCH (09:52)
[2016-12-02] MEDS: Metoprolol XL (24 HR) Succ 25 MG TAB.ER.24H PO SCH (09:52)
[2016-12-02] MEDS: Pantoprazole 40 MG VIAL IVP SCH (09:59)
[2016-12-02] MEDS: Saline Nasal Spray 44 ML BOTTLE NS SCH ×3 (10:04→21:45)
--- NOTE | 2016-12-02 10:54 | Palliative - Consult Note ---
Date of Encounter: 12/02/16 Time of Encounter: 10:00 - Assessment and Plan (1) Goals of care, counseling/discussion Current Visit: Yes Status: Acute Assessment and plan: Patient verbalizes that she is chronically ill with heart and kidney problems. She reports that she desires to return to [facility] and attempt rehab. She reports that she is bed bound and is assisted with lift at [facility]. Advanced directives have been completed and sent from [facility]. We reviewed the document and no changes are warranted. Daughter Sissy is primary child engaged in care. I called Sissy at [phone] and updated her on patients condition. Sissy reports that patient has 5 children and her and one other sister Shilpa Dsouza assist in patients care. Sissy is also aware of patients chronic state with multiple issues and agrees with her mother that she will return to [facility] for rehab. Patient has had P& T evaluation for rehab needs. Patient is receiving antibiotics for abdominal cellulitis and UTI. Patient code statuts in DNRCC-A, DNI. Will continue to follow progress. (2) Dyspnea Current Visit: No Status: Chronic Assessment and plan: Patient with CHF and HCAP. Receiving antibiotics, supplemental oxygen, nebs, mucinex, nasal spray. Has received transfusion x 2. Qualifiers: Dyspnea type: shortness of breath Qualified Code(s): R06.02 - Shortness of breath (3) Pain Current Visit: No Status: Acute Assessment and plan: Patient with abdominal cellulitis and denies discomfort at present. Patient with po oxycodone and prn morphine. Requested one dose of po in past 24 hrs. (4) Diastolic CHF, chronic Current Visit: No Status: Chronic Assessment and plan: Cardiology consult. Patient not a candidate for aggressive intervention. Medications adjusted for medical management. (5) Obesity (BMI 30-39.9) Current Visit: No Status: Chronic (6) Acute on chronic renal failure Current Visit: No Status: Acute Assessment and plan: Nephrology following Palliative-CN HPI - Data of Consult Patient: new to practice Consult date: 12/02/16 Requesting Physician: Efrain Nichols Primary Care Provider: PCP NO - Consult Narrative Palliative Care/Comfort Measures: Palliative care Reason for consult: Goals of Care History of present illness: Ms. Dsouza is a 71 year old female admitted from [facility] from with hemoptysis, CP, CHF and UTI. The patient is bed bound and suffers from obesity. Cardiology consult reveals that patient is not a candidate for heart cath and SAVANNA reveals and EF 40-45%, global hypokinesis and moderate LV diastolic dysfunction. History of CKD stage 3-4. Nephrology following with creatinine trending down with fluid replacement. Patient with chronic anemia and has received 2 transfusions to date. Patient receiving antibiotics for abdominal cellulitis, UTI and HCAP. This palliative care consult if for goals of care planning. The patient is currently on contact precautions. CC: Efrain Nichols Past Med Surg Social Fam HX - Past Medical History Source: patient, old records reviewed, obtained from family Medical history: asthma, CHF, COPD, CVA, diabetes, hypertension, renal disease, other Psychiatric history: no psych history - Past Surgical History Surgical History: no surgical history - Social History Smoking Status: Never smoker Smokeless Tobacco Status: No Alcohol use: none Drug use: none Occupational status: unemployed Current living situation: [facility] Activity Level: Bed bound Recent Out of Country Travel Within the Last 8 Weeks: No Exposure or Possible Exposure to Illness During Travel: No - Family History Father Living Status: Hx Family Cancer: Yes Mother Living Status: Hx Family Cardiac Disorders: No Hx Family Respiratory Disorders: No Hx Family Cancer: Yes Hx Family GI Disorders: No Hx Family Endocrine Disorder: No Hx Family Neuromuscular Disorders: No Hx Family Neurologic Disorders: No Hx Family HEENT Disorders: No Hx Family Autoimmune Disorders: No Medications and Allergies Cholecalciferol (Vitamin D3) [Vitamin D3] 50,000 unit PO QWEEK 05/30/16 [History ] Gabapentin [Neurontin] 300 mg PO BID 05/30/16 [History] Hydralazine HCl 100 mg PO Q8H 05/30/16 [History] Insulin ASPART [NovoLOG] 1 - 5 unit SQ ACHS 05/30/16 [History] Isosorbide MONOnitrate (24 HR) [Imdur] 30 mg PO DAILY 05/30/16 [History] CloNIDine HCl [Clonidine HCl] 0.2 mg PO BID #60 tab 06/04/16 [Rx] Aspirin 81 mg PO DAILY 07/10/16 [History] Insulin DETEMIR [Levemir] 50 unit SQ QAM 07/10/16 [History] Insulin DETEMIR [Levemir] 55 unit SQ HS 07/10/16 [History] Acetaminophen [Tylenol] 650 mg PO Q6HR PRN #0 tablet 07/20/16 [Rx] Ipratropium/Albuterol Neb [Duoneb] 3 ml IH [id number] inhsol 07/20/16 [Rx] Tramadol HCl [Ultram] 50 mg PO QID PRN #10 tab 07/20/16 [Rx] Atorvastatin Calcium [Lipitor] 80 mg PO DAILY 07/31/16 [History] Budesonide/Formoterol 160/4.5 [Symbicort 160/4.5] 2 puff IH BID 07/31/16 [ History] ClonazePAM [Klonopin] 1 mg PO TID PRN 07/31/16 [History] Clopidogrel [Plavix] 75 mg PO DAILY 07/31/16 [History] Levothyroxine [Synthroid] 25 mcg PO DAILY 07/31/16 [History] Loperamide [Imodium] 2 mg PO Q4HR PRN 07/31/16 [History] Pantoprazole Sodium [Protonix] 40 mg PO DAILY 07/31/16 [History] Saline Nasal [place] [[place] Nasal [place]] 2 spray NS TID 07/31/16 [History] Tiotropium [Spiriva] 18 mcg IH DAILY 07/31/16 [History] Furosemide [Lasix] 40 mg PO BID #0 08/12/16 [Rx] Lisinopril [Zestril] 5 mg PO DAILY #0 tablet 08/12/16 [Rx] Metoprolol Succinate 25 mg PO DAILY #30 tab.er.24h 08/12/16 [Rx] Spironolactone [Aldactone] 12.5 mg PO DAILY tablet 08/12/16 [Rx] Citalopram [CeleXA] 20 mg PO DAILY 10/07/16 [History] Furosemide [Lasix] 20 mg PO QPM 10/07/16 [History] Loratadine [Claritin] 10 mg PO DAILY 10/07/16 [History] Multivitamin [One Daily Multivitamin] 1 tab PO DAILY 10/07/16 [History] Allergies No Known Allergies Allergy (Verified 07/24/16 16:19) All systems: reviewed and no additional remarkable complaints except as stated ( nose bleeds, hemoptysis, abdominal pain) - Constitutional Constitutional ROS PAL: fatigue - EENT Ears, nose, mouth, throat: nasal congestion (reports dry nose and bloody drainage from nose) - Cardiovascular Cardiovascular ROS: pedal edema (Bilateral 2-3+) - Respiratory Respiratory: cough (hemoptysis) - Genitourinary Palliative ROS female: urinary frequency - Musculoskeletal Musculoskeletal ROS IM: muscle weakness - Integumentary ROS Integumentary: erythema (abdomen) - Neurological Neurological ROS: as per HPI - Psychiatric Psychiatric general PM: as per HPI Palliative Care-Exam - Constitutional Vitals: Temp Pulse Resp BP Pulse Ox 98.4 F 88 20 127/76 98 12/02/16 08:09 12/02/16 08:09 12/02/16 08:09 12/02/16 08:09 12/02/16 08:09 General appearance: Present: morbidly obese - Head Head Exam: Present: atraumatic, normal inspection, normocephalic - Eye Eye exam: Present: PERRL Pupils: Present: PERRL - ENT ENT exam: Present: mucous membranes moist - Expanded ENT Exam Mouth Exam: Present: moist - Neck Neck exam: Present: full ROM - Respiratory Respiratory exam: Present: decreased breath sounds - Expanded Respiratory Exam Location: decreased breath sounds: Left, Right, Lower - Cardiovascular Cardiovascular exam: Present: RRR, +S1, +S2 - Expanded Cardiovascular Exam Peripheral pulses: 1+: Femoral (L) PM, Femoral (R) PM, Posterior Tibialis (L), Posterior Tibialis (R), 2+: Carotid (L) PM, Carotid (R) PM, Radial (L), Radial ( R), Dorsalis Pedis (L) PM, Dorsalis Pedis (R) PM - GI/Abdominal Exam GI/Abdominal exam: Present: normal bowel sounds, soft - Rectal Rectal exam: Present: deferred - Catheter Type: Urethral (Mccarty) Additional comments: clear yellow urine - Extremities Exam Extremities exam: Present: pedal edema (bilateral 2-3+ ) - Expanded Upper Extremities Exam Shoulder exam: Present: full ROM Upper Arm exam: Present: full ROM Elbow exam: Present: full ROM Forearm wrist exam: Present: full ROM - Neurological Exam Neurological exam: Present: alert, CN II-XII intact, oriented X3 - Psychiatric Psychiatric exam: Present: normal affect - Skin Skin exam: Present: pallor, warm - Expanded Skin Exam Distribution of rash: Present: abdomen (erythema) Internal Medicine - CN: Reslt - Labs CBC & Chem 7: 12/02/16 08:27 12/02/16 02:26 Labs: Short CBC 12/01/16 12/02/16 12/02/16 Range/Units 19:53 02:26 08:27 WBC 11.0 (4.3-11.1) K/mcL Hgb 8.0 L 8.0 L 8.5 L (11.5-15.4) g/dL Hct 25.2 L 25.1 L 27.0 L (35.3-44.9) % Plt Count 285 (140-400) K/mcL BMP 12/02/16 02:26 Sodium 138 Potassium 5.0 H Chloride 101 Carbon Dioxide 23 BUN 95 H Creatinine 3.58 H Glucose 103 H Calcium 8.0 L - ABG Interpretation ABG results: ABG ABG pH 7.38 pH Units (7.32-7.45) 11/30/16 11:24 ABG pCO2 43 mmHg (35-45) 11/30/16 11:24 ABG pO2 124 mmHg (85-104) H 11/30/16 11:24 ABG O2 Saturation 99 % (95-98) H 11/30/16 11:24 PT/INR, D-dimer PT 13.3 Seconds (9.4-12.1) H 11/30/16 02:30 D-Dimer 3305 ng/mLFEU (0-500) H 11/30/16 02:30 Consult Discharge Plan - Plan Referrals: NO,PCP [Primary Care Provider] - Palliative Quality Palliative Quality: Screen for Code Status: Yes, Screen for Goals of Care: Yes, Screen for Pain: Yes, If Pain Regimen Started, Initiate Bowel Regimen: Yes, Screen for Nausea/Vomitting: Yes
[2016-12-02 14:30] LABS: Hematocrit 23.6 % (35.3-44.9); Hemoglobin 7.5 g/dL (11.5-15.4)
[2016-12-02] MEDS: 0.9 % Sodium Chloride 1,000 ML IVC SCH (15:15)
--- NOTE | 2016-12-02 17:42 | Electrocardiograph Report ---
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
--- NOTE | 2016-12-02 17:45 | Electrocardiograph Report ---
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
--- NOTE | 2016-12-02 18:05 | Internal Med Progress Note ---
Date of Encounter: 12/02/16 Time of Encounter: 18:01 - Assessment and plan (1) Anemia in chronic kidney disease Current Visit: Yes Status: Acute Assessment and plan: Hemoglobin is 8.0, close to her baseline, we will continue to monitor. 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 We will use inhaled bronchodilators as needed. Oxygen by nasal cannula. Qualifiers: COPD type: chronic bronchitis Chronic bronchitis type: mucopurulent Qualified Code(s): J41.1 - Mucopurulent chronic bronchitis (4) Morbid obesity with BMI of 45.0-49.9, adult Current Visit: No Status: Chronic Assessment and plan: Outpatient weight loss regimen. (5) UTI (urinary tract infection) Current Visit: Yes Status: Acute Qualifiers: Urinary tract infection type: site unspecified Hematuria presence: without hematuria Qualified Code(s): N39.0 - Urinary tract infection, site not specified (6) Acute kidney injury superimposed on chronic kidney disease Current Visit: Yes Status: Acute Assessment and plan: IV normal saline. Monitor BUN and creatinine daily. Avoid nephrotoxins including any contrast studies. Appreciate nephrology input. (7) Cellulitis Current Visit: Yes Status: Acute Assessment and plan: acute abdominal cellulitis currently on Zosyn consider Vancomycin if not improving Improving from marked area yesterday Qualifiers: Site of cellulitis of trunk: abdominal wall Qualified Code(s): L03.311 - Cellulitis of abdominal wall - Subjective Interval history: patient reports nausea and 1 episode of vomiting last night, decreased oral intake and associated decreased appetite. Denies abdominal pain. Denies fevers chills cough or shortness of breath. She says there was some blood in the vomitus. - Constitutional Vitals: Temp Pulse Resp BP Pulse Ox 98.4 F 75 20 132/69 98 12/02/16 17:12 12/02/16 17:12 12/02/16 17:12 12/02/16 17:12 12/02/16 17:12 General appearance: Present: cooperative, A&O X 3, morbidly obese, no acute distress - Eye Eye exam: Present: PERRL, conjuntiva pink, sclera anicteric Pupils: Present: PERRL - Respiratory Respiratory exam: Present: CTAB. Absent: accessory muscle use, rales, rhonchi, wheezes - Cardiovascular Cardiovascular exam: Present: RRR, +S1, +S2. Absent: diastolic murmur, gallop, rubs, systolic murmur - GI/Abdominal GI/Abdominal exam: Present: normal bowel sounds, soft, no peritoneal signs. Absent: distended, tenderness - Extremities Exam Extremities exam: Present: pedal edema, warm, radial pulses palpable and symetrical. Absent: calf tenderness, cyanotic - Skin Skin exam: Present: dry, erythema (Right abdominal pannus erythema and duration and peau d'orange consistent with cellulitis), intact Internal Medicine: Result - Labs CBC & Chem 7: 12/02/16 14:02 12/02/16 02:26 Labs: Short CBC 12/01/16 12/02/16 12/02/16 Range/Units 19:53 02:26 08:27 WBC 11.0 (4.3-11.1) K/mcL Hgb 8.0 L 8.0 L 8.5 L (11.5-15.4) g/dL Hct 25.2 L 25.1 L 27.0 L (35.3-44.9) % Plt Count 285 (140-400) K/mcL 12/02/16 Range/Units 14:02 WBC (4.3-11.1) K/mcL Hgb 7.5 L (11.5-15.4) g/dL Hct 23.6 L (35.3-44.9) % Plt Count (140-400) K/mcL BMP 12/02/16 02:26 Sodium 138 Potassium 5.0 H Chloride 101 Carbon Dioxide 23 BUN 95 H Creatinine 3.58 H Glucose 103 H Calcium 8.0 L - ABG Interpretation ABG results: ABG ABG pH 7.38 pH Units (7.32-7.45) 11/30/16 11:24 ABG pCO2 43 mmHg (35-45) 11/30/16 11:24 ABG pO2 124 mmHg (85-104) H 11/30/16 11:24 ABG O2 Saturation 99 % (95-98) H 11/30/16 11:24 PT/INR, D-dimer PT 13.3 Seconds (9.4-12.1) H 11/30/16 02:30 D-Dimer 3305 ng/mLFEU (0-500) H 11/30/16 02:30 - VTE Documentation of Mechanical Device: Intermittent pneumatic compression device Consult Discharge Plan - Plan Referrals: NO,PCP [Primary Care Provider] -
[2016-12-02 20:46] LABS: Hematocrit 24.3 % (35.3-44.9); Hemoglobin 7.7 g/dL (11.5-15.4)
[2016-12-03] MEDS: Ipratropium/Albuterol Neb 3 ML IH SCH ×4 (04:12→21:15)
[2016-12-03 04:18] LABS: Basophils # 0.1 K/mcL (0.0-0.2); Basophils % 0.8 %; Eosinophils # 0.4 K/mcL (0.0-0.6); Eosinophils % 3.9 %; Hematocrit 26.6 % (35.3-44.9); Hemoglobin 8.3 g/dL (11.5-15.4); Immature Granulocytes % 0.4 % (0-4); Lymphocytes % 10.7 %; Mean Corpuscular HGB Conc 31.2 g/dL (31.6-35.5); Mean Corpuscular Hemoglobin 29.1 pg (28.0-33.3); Mean Corpuscular Volume 93.3 fL (83.0-100.0); Mean Platelet Volume 8.6 fL (9.4-12.4); Monocytes # 0.8 K/mcL (0.0-1.3); Monocytes % 8.6 %; Neutrophils # 7.1 K/mcL (1.6-8.9); Platelet Count 302 K/mcL (140-400); Red Blood Count 2.85 M/mcL (3.82-4.97); Red Cell Distribution Width 15.8 % (11.5-14.5); Segmented Neutrophils % 75.6 %
[2016-12-03 04:32] LABS: Calcium 8.1 mg/dL (8.6-10.8); Potassium 4.6 mEq/L (3.5-4.5)
[2016-12-03] MEDS: 0.9 % Sodium Chloride 1,000 ML IVC SCH ×2 (04:40→17:53)
[2016-12-03] MEDS: Piperacillin/Tazobactam 3.375 GM in D5% in Water (Mini-Bag+) 100 ML IVPB SCH ×2 (07:19→17:59)
--- NOTE | 2016-12-03 08:17 | Internal Med Progress Note ---
<Jay Oglesby - Last Filed: 12/03/16 14:34> Date of Encounter: 12/03/16 Time of Encounter: 08:15 - Assessment and plan (1) Hemoptysis Current Visit: Yes Status: Acute Assessment and plan: No recurrence. Stable. Plan: - Continue to hold anticoagulation - Monitor symptoms and blood work. (2) Hypertension Current Visit: No Status: Acute Assessment and plan: History of hypertension, currently blood pressure is controlled continue to hold antihypertensives. Qualifiers: Hypertension type: essential hypertension Qualified Code(s): I10 - Essential (primary) hypertension (3) Type 2 diabetes mellitus with diabetic chronic kidney disease Current Visit: No Status: Acute Assessment and plan: Known type 2 diabetes patient is on Levemir twice a day at home. Current glucoses are stable. Plan: - Before meals at bedtime glucose checks - Low-dose sliding scale insulin adjust as necessary Qualifiers: Diabetes mellitus detention insulin use: with exterminator helper use Chronic kidney disease stage: stage 4 (severe) Qualified Code(s): E11.22 - Type 2 diabetes mellitus with diabetic chronic kidney disease; N18.4 - Chronic kidney disease, stage 4 (severe); Z79.4 - long term acute care registered nurse (current) use of insulin (4) CHF exacerbation Current Visit: No Status: Chronic Assessment and plan: Patient presented BNP 1179, clinical examination demonstrates pitting edema up to mid back. Cephalization appreciated on chest x-ray. Troponins trended upward during inpatient stay EKGs were normal sinus rhythm. Echocardiogram demonstrates mild left ventricular systolic dysfunction with LVEF of 40-45%. Global left ventricle hypokinesis. Moderate left ventricle diastolic dysfunction. Normal right ventricular size and function. Mild mitral regurgitation. No evidence of pulmonary hypertension. - Cardiology was consult and was involved in the patient's care and determined she is not a candidate for left heart catheterization and intervention. - Medical management this time. Plan: - Low sodium diet - 1500ml fluid restrictions - daily weights Qualifiers: Congestive heart failure type: combined Qualified Code(s): I50.43 - Acute on chronic combined systolic (congestive) and diastolic (congestive) heart failure (5) Acute on chronic renal failure Current Visit: No Status: Acute Assessment and plan: Patient presents with acute on chronic renal failure current creatinine is 3.76 which is elevated compared to baseline. Baseline creatinine 1.23 after chart review. I have contacted the patient's software test and validation engineer Dr. Perez and discussed the patient and consulted the nephrology team. - The patient appears volume overloaded but compared to laboratory results appears to be intravascularly dry. This may be secondary to malnutrition as the patient is a low albumin and third spacing. This may also be secondary to urinary retention as the patient had 1100 ML's of urine without any symptoms of having to urinate. Also considering urinary tract infection as the patient was straight cathetered in a milky white substance was extracted from her bladder. 12/03/2016: - Renal function slightly improved but continues to stay elevated. This may be a mixed picture with poor perfusion secondary to acute systolic failure, urinary retention and enterococcus urinary tract infection. Plan: - Hold nephrotoxic medications and renally dose antibiotics. - Monitor renal function with a.m. labs - Address urinary tract infection- continue Zosyn antibiotic coverage. - Nephrology following appreciate their recommendations. (6) Hyperkalemia Current Visit: Yes Status: Acute Assessment and plan: Resolved. Secondary to renal insufficiency. - Continue with low potassium diet - Continue to hold patient's spironolactone and lisinopril (7) UTI (urinary tract infection) Current Visit: Yes Status: Acute Assessment and plan: Patient presents to emergency department with hemoptysis found to have urinary tract infection with leukocytes esterase large, many bacteria and cloudy yellow urine. Urine also had protein. Specific gravity 1.014. 12/03/2016: Enterococcus faecium and faecalis urinary tract infection. Continue his Zosyn. -Renal function improving slowly. Qualifiers: Urinary tract infection type: site unspecified Hematuria presence: without hematuria Qualified Code(s): N39.0 - Urinary tract infection, site not specified (8) Protein calorie malnutrition Current Visit: Yes Status: Acute Assessment and plan: Patient has been seen by dietitian in the past, history of protein malnutrition. Her malnutrition is likely contributing to her current medical picture. Plan: - Continue recommendations per dietitian for protein malnutrition. (9) Anemia of chronic disease Current Visit: No Status: Chronic Assessment and plan: Patient is a history of chronic anemia secondary to chronic kidney disease. Patient presented with a hemoglobin of 6.3 follow-up was 7.0. Patient was transfused 2 units PRBCs 12/01/2016. - Hemoglobin stable at 8.3 today. Plan: - Continue to monitor hemoglobin: With daily labs - Continue to hold anticoagulation continue SCDs. - Replace as necessary. - Nephrology starting Arnesep today. (10) Elevated troponin Current Visit: No Status: Acute Assessment and plan: Patient presented with elevated troponin which then increased from 0.02-1.03- 4.09. Cardiology was consulted, after further evaluation with echocardiogram and patient workup patient was deemed not a candidate for left heart catheterization. -Echocardiogram demonstrates mild left ventricular systolic dysfunction with LVEF of 40-45%. Global left ventricle hypokinesis. Moderate left ventricle diastolic dysfunction. Normal right ventricular size and function. Mild mitral regurgitation. No evidence of pulmonary hypertension. Plan: Medical management. - Continue Imdur, statin, beta-frank - Hold aspirin with recent hemoptysis - hold lisinopril with PRADEEP (11) DVT prophylaxis Current Visit: No Status: Acute Assessment and plan: SCDs. - Subjective Interval history: Ms. Dsouza 71 F seen and evaluated patient bedside this morning. She is alert awake interactive no acute distress. She has any discomforts pains or any other concerns this morning. She has tolerated by mouth intake and is having bowel movements. She has no further concerns today. - Constitutional Vitals: Temp Pulse Resp BP Pulse Ox 97.4 F L 74 18 148/78 96 12/03/16 07:15 12/03/16 07:15 12/03/16 07:15 12/03/16 07:15 12/03/16 07:15 General appearance: Present: cooperative, A&O X 3, morbidly obese, no acute distress - Head Head exam: Present: atraumatic, normocephalic - Eye Eye exam: Present: PERRL, conjuntiva pink, sclera anicteric Pupils: Present: PERRL - ENT ENT exam: Present: mucous membranes moist - Neck Neck exam general surgery: Present: supple, trachea midline. Absent: lymphadenopathy - Respiratory Respiratory exam: Present: CTAB. Absent: accessory muscle use, rales, rhonchi, wheezes - Cardiovascular Cardiovascular exam: Present: RRR, +S1, +S2. Absent: diastolic murmur, gallop, rubs, systolic murmur - GI/Abdominal GI/Abdominal exam: Present: normal bowel sounds, soft, no peritoneal signs. Absent: distended, tenderness - Extremities Exam Extremities exam: Present: pedal edema Additional comments: Bilateral LE 2+ pitting edema. - Neurological Exam Neurological exam: Present: alert, oriented X3, no focal deficits. Absent: pronater drift, facial droop, speech deficit - Psychiatric Psychiatric exam: Present: normal affect, normal mood Internal Medicine: Result - Labs CBC & Chem 7: 12/03/16 03:54 12/03/16 03:54 Labs: Short CBC 12/02/16 12/02/16 12/02/16 Range/Units 08:27 14:02 20:25 WBC (4.3-11.1) K/mcL Hgb 8.5 L 7.5 L 7.7 L (11.5-15.4) g/dL Hct 27.0 L 23.6 L 24.3 L (35.3-44.9) % Plt Count (140-400) K/mcL Neutrophils # (1.6-8.9) K/mcL 12/03/16 Range/Units 03:54 WBC 9.3 (4.3-11.1) K/mcL Hgb 8.3 L (11.5-15.4) g/dL Hct 26.6 L (35.3-44.9) % Plt Count 302 (140-400) K/mcL Neutrophils # 7.1 (1.6-8.9) K/mcL BMP 12/03/16 03:54 Sodium 140 Potassium 4.6 H Chloride 103 Carbon Dioxide 23 BUN 88 H Creatinine 3.40 H Glucose 92 Calcium 8.1 L - ABG Interpretation ABG results: ABG ABG pH 7.38 pH Units (7.32-7.45) 11/30/16 11:24 ABG pCO2 43 mmHg (35-45) 11/30/16 11:24 ABG pO2 124 mmHg (85-104) H 11/30/16 11:24 ABG O2 Saturation 99 % (95-98) H 11/30/16 11:24 PT/INR, D-dimer PT 13.3 Seconds (9.4-12.1) H 11/30/16 02:30 D-Dimer 3305 ng/mLFEU (0-500) H 11/30/16 02:30 - VTE Documentation of Mechanical Device: Intermittent pneumatic compression device Consult Discharge Plan - Plan Referrals: NO,PCP [Primary Care Provider] - <Peter Phoenix - Last Filed: 12/03/16 18:46> Date of Encounter: 12/03/16 - Assessment and plan (1) Anemia in chronic kidney disease Current Visit: Yes Status: Acute (2) Diabetes mellitus Current Visit: No Status: Chronic Qualifiers: Diabetes mellitus type: type 2 Diabetes mellitus complication status: with kidney complications Diabetes mellitus complication detail: with chronic kidney disease Diabetes mellitus detention insulin use: with detention use Chronic kidney disease stage: stage 3 (moderate) Qualified Code(s): E11.22 - Type 2 diabetes mellitus with diabetic chronic kidney disease; N18.3 - Chronic kidney disease, stage 3 (moderate); Z79.4 - intermediate (current) use of insulin (3) COPD (chronic obstructive pulmonary disease) Current Visit: No Status: Chronic Qualifiers: COPD type: chronic bronchitis Chronic bronchitis type: mucopurulent Qualified Code(s): J41.1 - Mucopurulent chronic bronchitis (4) Morbid obesity with BMI of 45.0-49.9, adult Current Visit: No Status: Chronic (5) UTI (urinary tract infection) Current Visit: Yes Status: Acute Qualifiers: Urinary tract infection type: site unspecified Hematuria presence: without hematuria Qualified Code(s): N39.0 - Urinary tract infection, site not specified (6) Acute kidney injury superimposed on chronic kidney disease Current Visit: Yes Status: Acute (7) Cellulitis Current Visit: Yes Status: Acute Qualifiers: Site of cellulitis of trunk: abdominal wall Qualified Code(s): L03.311 - Cellulitis of abdominal wall - Constitutional Vitals: Temp Pulse Resp BP Pulse Ox 97.9 F 87 18 141/78 94 12/03/16 16:38 12/03/16 16:38 12/03/16 16:38 12/03/16 16:38 12/03/16 16:38 Internal Medicine: Result - Labs CBC & Chem 7: 12/03/16 03:54 12/03/16 03:54 Labs: Short CBC 12/02/16 12/03/16 Range/Units 20:25 03:54 WBC 9.3 (4.3-11.1) K/mcL Hgb 7.7 L 8.3 L (11.5-15.4) g/dL Hct 24.3 L 26.6 L (35.3-44.9) % Plt Count 302 (140-400) K/mcL Neutrophils # 7.1 (1.6-8.9) K/mcL BMP 12/03/16 03:54 Sodium 140 Potassium 4.6 H Chloride 103 Carbon Dioxide 23 BUN 88 H Creatinine 3.40 H Glucose 92 Calcium 8.1 L - ABG Interpretation ABG results: ABG ABG pH 7.38 pH Units (7.32-7.45) 11/30/16 11:24 ABG pCO2 43 mmHg (35-45) 11/30/16 11:24 ABG pO2 124 mmHg (85-104) H 11/30/16 11:24 ABG O2 Saturation 99 % (95-98) H 11/30/16 11:24 PT/INR, D-dimer PT 13.3 Seconds (9.4-12.1) H 11/30/16 02:30 D-Dimer 3305 ng/mLFEU (0-500) H 11/30/16 02:30 - Attending Attestation I examined this patient and my medical decision-making was reviewed with the Resident Physician, Dr Oglesby. I agree with the documented findings, disposition and treatment plan as described except to the extent set forth below. She is more alert today. Reports that her nausea has resolved. She has been able to tolerate a diet. On exam she is in no acute distress heart is regular rate and rhythm S1-S2. Abdomen is obese soft nontender nondistended with normoactive bowel sounds. Right flank cellulitis improved from yesterday. Lower extremity with 2+ pitting edema. Skin with 2 stage II ulcers on her sacral area. Plan: Continue treating for pneumonia and UTI. Urine culture reveals enterococcus faecium resistant to cephalosporins and meropenem and therefore wall start vancomycin in addition to Zosyn for Enterococcus faecalis. We will will dose vancomycin by levels. Discontinue Mccarty to prevent colonization and recurrent UTIs. Diligent wound care for the patient's decubitus ulcers. She is at high risk for morbidity mortality and complications due to renal failure and IV vancomycin which requires intensive blood level monitoring for nephrotoxicity.
[2016-12-03] MEDS: Pantoprazole 40 MG VIAL IVP SCH (08:18)
[2016-12-03] MEDS: Aspirin 81 MG TAB.CHEW PO SCH (08:18)
[2016-12-03] MEDS: Loratadine 10 MG TABLET PO SCH (08:18)
[2016-12-03] MEDS: Gabapentin 300 MG CAPSULE PO SCH (08:19)
[2016-12-03] MEDS: Levothyroxine 25 MCG TABLET PO SCH (08:19)
[2016-12-03] MEDS: Metoprolol XL (24 HR) Succ 25 MG TAB.ER.24H PO SCH (08:19)
[2016-12-03] MEDS: Isosorbide MONOnitrate (24 HR) 30 MG TAB.ER.24H PO SCH (08:19)
[2016-12-03] MEDS: Saline Nasal Spray 44 ML BOTTLE NS SCH ×3 (08:21→21:50)
[2016-12-03] MEDS: Insulin LISPRO 300 UNITS/3 ML VIAL SQ SCH ×4 (08:21→21:50)
--- NOTE | 2016-12-03 09:22 | Nephrology Progress Note ---
Date of Encounter: 12/03/16 Time of Encounter: 09:20 - Assessment and Plan (1) PRADEEP (acute kidney injury) Current Visit: No Status: Resolved The patient has acute kidney injury superimposed on chronic kidney disease in the setting of a urinary tract infection related to enterococcus. Her renal function is slowly improving with the addition of IV fluids. I would continue the same medical regimen for the time being. Nephrotoxins should be avoided. We will can get her started on Aranesp for her anemia and also check iron studies. (2) Chronic renal failure, stage 4 (severe) Current Visit: No Status: Chronic (3) Renal disease due to diabetes mellitus Current Visit: No Status: Acute Qualifiers: Diabetes mellitus type: type 2 Qualified Code(s): E11.21 - Type 2 diabetes mellitus with diabetic nephropathy Subjective Interval history: The patient reports she is feeling better overall. Her renal function continues to slowly improve. Urine output is adequate. Vital signs are stable. Urine cultures growing enterococcus. Objective - Vital Signs Vital signs: Vital Signs Temp Pulse Resp BP Pulse Ox 12/03/16 07:15 97.4 F L 74 18 148/78 96 12/03/16 04:12 17 100 12/03/16 04:09 97.5 F L 82 18 148/75 100 12/03/16 01:08 98.0 F 75 18 148/73 100 12/02/16 22:34 18 97 12/02/16 21:00 98.1 F 72 18 137/61 98 12/02/16 17:12 98.4 F 75 20 132/69 98 12/02/16 16:28 18 98 12/02/16 11:27 98.5 F 84 20 136/75 100 12/02/16 11:05 18 97 Intake and Output 12/02/16 12/03/16 12/03/16 23:59 07:59 15:59 Intake Total 240 / 240 1100 / 1100 360 / 360 Output Total 700 / 700 900 / 900 Balance -460 / -460 200 / 200 360 / 360 Intake: IV Fluids 1100 / 1100 0.9 % Sodium Chloride 1, 1000 / 1000 000 ML @ 75 mls/hr IVC . [id number] [facility] Rx#: [id number] Zosyn 3.375 GM In 100 / 100 Dextrose 5% (Minibag+) 100 ML 100 ML @ 25 mls/hr IVPB Q12H [facility] Rx#: [id number] Oral 240 / 240 0 / 0 360 / 360 Output: Catheter 700 / 700 900 / 900 Other: Meal Dinner Breakfast Blood Glucose* 103 96 - General Appearance Exam: Patient is alert and oriented. She is in no acute distress. Lung sounds otherwise clear. Heart regular rhythm. Abdomen is benign. There is nonpitting lower extremity swelling. - Lab 12/03/16 03:54 12/03/16 03:54 Most recent lab results ABG pH 7.38 pH Units (7.32-7.45) 11/30/16 11:24 ABG pCO2 43 mmHg (35-45) 11/30/16 11:24 ABG pO2 124 mmHg (85-104) H 11/30/16 11:24 ABG HCO3 25.4 mEQ/L (21-27) 11/30/16 11:24 ABG O2 Saturation 99 % (95-98) H 11/30/16 11:24 Calcium 8.1 mg/dL (8.6-10.8) L 12/03/16 03:54 Phosphorus 7.4 mg/dL (2.3-4.7) H 11/30/16 05:58 Magnesium 2.6 mg/dL (1.6-2.6) 11/30/16 05:58 - VTE Documentation of Mechanical Device: Intermittent pneumatic compression device Consult Discharge Plan - Plan Referrals: NO,PCP [Primary Care Provider] -
--- NOTE | 2016-12-03 09:25 | Palliative Progress Note ---
Date of Encounter: 12/03/16 Time of Encounter: 09:20 - Assessment and plan (1) Dyspnea Current Visit: No Status: Chronic Assessment and plan: Improved. Continues with neb/supportive oxygen. No further hemoptysis Qualifiers: Dyspnea type: shortness of breath Qualified Code(s): R06.02 - Shortness of breath (2) Pain Current Visit: No Status: Acute Assessment and plan: Continues with Oxycodone as well as low dose Morphine PRN. Has only utilized Morphine x1 last 24 hours, and no Oxycodone. States she is quite comfortable. (3) Goals of care, counseling/discussion Current Visit: Yes Status: Acute Assessment and plan: See extensive goals of care discussion from yesterday's consult. Adv directives done and in chart. Code states remains DNR/DNI. She desires to return to [facility] and continue with rehab. Discussion with KOFFI Sheehan/daughter yesterday who desires this as well. Cardiology and Nephrology following. Will follow from distance. - Time Spent With Patient Total time spent is greater than 50% in coordination of care (as documented) at patient's floor/unit and/or counseling patient: 25 - 35 minutes - Subjective Interval history: Patient asleep on arrival, awakens easily. States drowsy from recent pain medication. States nausea/vomiting have improved and she is feeling better. Pain well controlled. RLQ with decreasing erythema. Still with lower extremity edema. No visitors present. - Constitutional Vitals: Abnormal lab results RBC 2.85 M/mcL (3.82-4.97) L 12/03/16 03:54 Hgb 8.3 g/dL (11.5-15.4) L 12/03/16 03:54 Hct 26.6 % (35.3-44.9) L 12/03/16 03:54 MCHC 31.2 g/dL (31.6-35.5) L 12/03/16 03:54 RDW 15.8 % (11.5-14.5) H 12/03/16 03:54 MPV 8.6 fL (9.4-12.4) L 12/03/16 03:54 Immature Plt Fraction 1.0 % (1.1-6.1) L 11/30/16 02:30 PT 13.3 Seconds (9.4-12.1) H 11/30/16 02:30 D-Dimer 3305 ng/mLFEU (0-500) H 11/30/16 02:30 ABG pO2 124 mmHg (85-104) H 11/30/16 11:24 ABG Total CO2 26.7 mEq/L (20-26) H 11/30/16 11:24 ABG O2 Saturation 99 % (95-98) H 11/30/16 11:24 VBG pH 7.28 pH Units (7.32-7.42) L 11/30/16 08:26 VBG pCO2 57 mmHg (41-51) H 11/30/16 08:26 VBG pO2 59 mmHg (25-40) H 11/30/16 08:26 Potassium 4.6 mEq/L (3.5-4.5) H 12/03/16 03:54 BUN 88 mg/dL (7-20) H 12/03/16 03:54 Creatinine 3.40 mg/dL (0.57-1.11) H 12/03/16 03:54 Est GFR ( Amer) 16 (> 60) L 12/03/16 03:54 Est GFR (Non-Af Amer) 13 (> 60) L 12/03/16 03:54 POC Glucose 96 (58-89) H 12/03/16 07:17 Calculated Osmolality 317 (280-300) H 12/03/16 03:54 Calcium 8.1 mg/dL (8.6-10.8) L 12/03/16 03:54 Phosphorus 7.4 mg/dL (2.3-4.7) H 11/30/16 05:58 AST 63 Units/L (5-34) H 12/01/16 04:03 Alkaline Phosphatase 138 Units/L (38-126) H 12/01/16 04:03 Troponin I 3.02 ng/mL (0-0.03) H* 12/01/16 09:27 C-Reactive Protein 92 mg/L (Less than 5) H 11/30/16 08:26 B-Natriuretic Peptide 1742 pg/mL (0-100) H 12/01/16 04:03 Albumin 2.0 g/dL (3.5-5.0) L 12/01/16 04:03 Globulin 4.7 g/dL (2.4-3.5) H 12/01/16 04:03 Albumin/Globulin Ratio 0.4 (1.1-2.2) L 12/01/16 04:03 Urine Clarity Cloudy (Clear) A 11/30/16 03:16 Urine Protein 30 mg/dL (Neg-Trace) H 11/30/16 03:16 Ur Leukocyte Esterase Large (Negative) H 11/30/16 03:16 Urine Microscopic WBC TNTC per hpf (0-3) H 11/30/16 03:16 Urine Bacteria Many per hpf (None-Few) H 11/30/16 03:16 Ur Culture Indicated? YES (NO) A 11/30/16 03:16 General appearance: Present: no acute distress - Respiratory Respiratory exam: Present: decreased breath sounds, CTAB - Cardiovascular Cardiovascular exam: Present: +S1, +S2 - GI/Abdominal GI/Abdominal exam: Present: normal bowel sounds, soft Additional comments: Some residual redness to right lower quadrant - Extremities Exam Additional comments: 3-4+ edema lower extremities - Neurological Exam Neurological exam: Present: alert, strengths equal and symetr throughout Additional comments: Oriented to name and place. Reoriented to time - Psychiatric Psychiatric exam: Present: normal affect, normal mood - Skin Skin exam: Present: dry, pallor, warm Palliative Quality Palliative Quality: Screen for Code Status: Yes, Screen for Goals of Care: Yes, Screen for Pain: Yes, If Pain Regimen Started, Initiate Bowel Regimen: Yes, Screen for Nausea/Vomitting: Yes - Labs CBC & Chem 7: 12/03/16 03:54 12/03/16 03:54 Labs: Laboratory Results - last 24 hr 12/02/16 12/02/16 12/02/16 11:34 14:02 17:00 WBC RBC Hgb 7.5 L Hct 23.6 L MCV MCH MCHC RDW Plt Count MPV Immature Gran % Seg Neutrophils % Lymphocytes % Monocytes % Eosinophils % Basophils % Neutrophils # Lymphocytes # Monocytes # Eosinophils # Basophils # Sodium Potassium Chloride Carbon Dioxide BUN Creatinine Est GFR ( Amer) Est GFR (Non-Af Amer) BUN/Creatinine Ratio Glucose POC Glucose 118 H 98 H Calculated Osmolality Calcium 12/02/16 12/02/16 12/03/16 20:25 20:52 03:54 WBC 9.3 RBC 2.85 L Hgb 7.7 L 8.3 L Hct 24.3 L 26.6 L MCV 93.3 MCH 29.1 MCHC 31.2 L RDW 15.8 H Plt Count 302 MPV 8.6 L Immature Gran % 0.4 Seg Neutrophils % 75.6 Lymphocytes % 10.7 Monocytes % 8.6 Eosinophils % 3.9 Basophils % 0.8 Neutrophils # 7.1 Lymphocytes # 1.0 Monocytes # 0.8 Eosinophils # 0.4 Basophils # 0.1 Sodium Potassium Chloride Carbon Dioxide BUN Creatinine Est GFR ( Amer) Est GFR (Non-Af Amer) BUN/Creatinine Ratio Glucose POC Glucose 103 H Calculated Osmolality Calcium 12/03/16 12/03/16 03:54 07:17 WBC RBC Hgb Hct MCV MCH MCHC RDW Plt Count MPV Immature Gran % Seg Neutrophils % Lymphocytes % Monocytes % Eosinophils % Basophils % Neutrophils # Lymphocytes # Monocytes # Eosinophils # Basophils # Sodium 140 Potassium 4.6 H Chloride 103 Carbon Dioxide 23 BUN 88 H Creatinine 3.40 H Est GFR ( Amer) 16 L Est GFR (Non-Af Amer) 13 L BUN/Creatinine Ratio 26 Glucose 92 POC Glucose 96 H Calculated Osmolality 317 H Calcium 8.1 L - ABG Interpretation ABG results: ABG ABG pH 7.38 pH Units (7.32-7.45) 11/30/16 11:24 ABG pCO2 43 mmHg (35-45) 11/30/16 11:24 ABG pO2 124 mmHg (85-104) H 11/30/16 11:24 ABG O2 Saturation 99 % (95-98) H 11/30/16 11:24 PT/INR, D-dimer PT 13.3 Seconds (9.4-12.1) H 11/30/16 02:30 D-Dimer 3305 ng/mLFEU (0-500) H 11/30/16 02:30 Consult Discharge Plan - Plan Referrals: NO,PCP [Primary Care Provider] -
[2016-12-03 10:41] LABS: % Iron Saturation 52 % (15-50); Transferrin 84 mg/dL (180-382)
[2016-12-03 11:02] LABS: Ferritin 766 ng/ml (5-204)
[2016-12-03 11:26] LABS: Iron 61 mcg/dL (50-170)
[2016-12-03] MEDS ORDERED: Vancomycin 1,750 MG in D5% in Water 500 ML IVPB ONE (15:00)
[2016-12-04] MEDS: Ipratropium/Albuterol Neb 3 ML IH SCH ×4 (04:37→22:01)
[2016-12-04] MEDS: *HR* OxyCODONE Immed Rel 5 MG TABLET PO PRN (05:40)
[2016-12-04] MEDS: 0.9 % Sodium Chloride 1,000 ML IVC SCH ×2 (05:42→17:34)
[2016-12-04] MEDS: Piperacillin/Tazobactam 3.375 GM in D5% in Water (Mini-Bag+) 100 ML IVPB SCH (05:45)
[2016-12-04 06:14] LABS: Basophils # 0.1 K/mcL (0.0-0.2); Basophils % 0.5 %; Eosinophils # 0.3 K/mcL (0.0-0.6); Eosinophils % 2.1 %; Hematocrit 26.7 % (35.3-44.9); Hemoglobin 8.4 g/dL (11.5-15.4); Immature Granulocytes % 0.5 % (0-4); Lymphocytes % 8.1 %; Mean Corpuscular HGB Conc 31.5 g/dL (31.6-35.5); Mean Corpuscular Hemoglobin 29.5 pg (28.0-33.3); Mean Corpuscular Volume 93.7 fL (83.0-100.0); Mean Platelet Volume 8.7 fL (9.4-12.4); Monocytes # 0.9 K/mcL (0.0-1.3); Platelet Count 319 K/mcL (140-400); Red Blood Count 2.85 M/mcL (3.82-4.97); Red Cell Distribution Width 15.6 % (11.5-14.5); Segmented Neutrophils % 81.8 %
[2016-12-04 06:35] LABS: Potassium 4.3 mEq/L (3.5-4.5)
[2016-12-04 06:36] LABS: Albumin 2.1 g/dL (3.5-5.0); Albumin/Globulin Ratio 0.4 (1.1-2.2); Bilirubin,Total 0.4 mg/dL (0.2-1.2); Calcium 8.3 mg/dL (8.6-10.8); Total Protein 7.1 g/dL (6.0-8.3)
[2016-12-04] MEDS: Insulin LISPRO 300 UNITS/3 ML VIAL SQ SCH ×4 (07:45→21:59)
--- NOTE | 2016-12-04 09:26 | Palliative Progress Note ---
Date of Encounter: 12/04/16 Time of Encounter: 09:25 - Assessment and plan (1) Dyspnea Current Visit: No Status: Chronic Qualifiers: Dyspnea type: shortness of breath Qualified Code(s): R06.02 - Shortness of breath (2) Pain Current Visit: No Status: Acute Assessment and plan: Tolerating Oxycodone well. Utilized x2 last 24 hours (3) Goals of care, counseling/discussion Current Visit: Yes Status: Acute Assessment and plan: Continue with antibiotic therapy for enterococcus. Will transition back to [facility]CF upon discharge. - Time Spent With Patient Total time spent is greater than 50% in coordination of care (as documented) at patient's floor/unit and/or counseling patient: 25 - 35 minutes - Subjective Interval history: Patient resting quietly, states very tired and upset that she did not sleep any last night. States catheter was discontinued, and couldn't void, so was reinserted during the night. BUN/Cr continue to improve. Denies pain at present. No recent BM documented, but pt stated was "cleaned out" with kayexelate on admission. - Constitutional Vitals: Abnormal lab results WBC 12.2 K/mcL (4.3-11.1) H 12/04/16 05:50 RBC 2.85 M/mcL (3.82-4.97) L 12/04/16 05:50 Hgb 8.4 g/dL (11.5-15.4) L 12/04/16 05:50 Hct 26.7 % (35.3-44.9) L 12/04/16 05:50 MCHC 31.5 g/dL (31.6-35.5) L 12/04/16 05:50 RDW 15.6 % (11.5-14.5) H 12/04/16 05:50 MPV 8.7 fL (9.4-12.4) L 12/04/16 05:50 Neutrophils # 10.0 K/mcL (1.6-8.9) H 12/04/16 05:50 Immature Plt Fraction 1.0 % (1.1-6.1) L 11/30/16 02:30 PT 13.3 Seconds (9.4-12.1) H 11/30/16 02:30 D-Dimer 3305 ng/mLFEU (0-500) H 11/30/16 02:30 ABG pO2 124 mmHg (85-104) H 11/30/16 11:24 ABG Total CO2 26.7 mEq/L (20-26) H 11/30/16 11:24 ABG O2 Saturation 99 % (95-98) H 11/30/16 11:24 VBG pH 7.28 pH Units (7.32-7.42) L 11/30/16 08:26 VBG pCO2 57 mmHg (41-51) H 11/30/16 08:26 VBG pO2 59 mmHg (25-40) H 11/30/16 08:26 BUN 79 mg/dL (7-20) H 12/04/16 05:50 Creatinine 3.25 mg/dL (0.57-1.11) H 12/04/16 05:50 Est GFR ( Amer) 17 (> 60) L 12/04/16 05:50 Est GFR (Non-Af Amer) 14 (> 60) L 12/04/16 05:50 Glucose 155 mg/dL (70-99) H 12/04/16 05:50 POC Glucose 207 (58-89) H 12/03/16 20:05 Calculated Osmolality 319 (280-300) H 12/04/16 05:50 Calcium 8.3 mg/dL (8.6-10.8) L 12/04/16 05:50 Phosphorus 7.4 mg/dL (2.3-4.7) H 11/30/16 05:58 % Saturation 52 % (15-50) H 12/03/16 09:43 Transferrin 84 mg/dL (180-382) L 12/03/16 09:43 Ferritin 766 ng/ml (5-204) H 12/03/16 09:43 Alkaline Phosphatase 129 Units/L (38-126) H 12/04/16 05:50 Troponin I 3.02 ng/mL (0-0.03) H* 12/01/16 09:27 C-Reactive Protein 92 mg/L (Less than 5) H 11/30/16 08:26 B-Natriuretic Peptide 1742 pg/mL (0-100) H 12/01/16 04:03 Albumin 2.1 g/dL (3.5-5.0) L 12/04/16 05:50 Globulin 5.0 g/dL (2.4-3.5) H 12/04/16 05:50 Albumin/Globulin Ratio 0.4 (1.1-2.2) L 12/04/16 05:50 Urine Clarity Cloudy (Clear) A 11/30/16 03:16 Urine Protein 30 mg/dL (Neg-Trace) H 11/30/16 03:16 Ur Leukocyte Esterase Large (Negative) H 11/30/16 03:16 Urine Microscopic WBC TNTC per hpf (0-3) H 11/30/16 03:16 Urine Bacteria Many per hpf (None-Few) H 11/30/16 03:16 Ur Culture Indicated? YES (NO) A 11/30/16 03:16 General appearance: Present: morbidly obese - Respiratory Respiratory exam: Present: decreased breath sounds, CTAB - Cardiovascular Cardiovascular exam: Present: +S1, +S2 - GI/Abdominal GI/Abdominal exam: Present: normal bowel sounds, soft Additional comments: Area to RLQ with decreasing erythema - Extremities Exam Additional comments: Remains with 2-3+ edema to lower extremities bilaterally - Neurological Exam Neurological exam: Present: alert, oriented X3, strengths equal and symetr throughout - Skin Skin exam: Present: dry, pallor, warm Palliative Quality Palliative Quality: Screen for Code Status: Yes, Screen for Goals of Care: Yes, Screen for Pain: Yes, If Pain Regimen Started, Initiate Bowel Regimen: Yes, Screen for Nausea/Vomitting: Yes - Labs CBC & Chem 7: 12/04/16 05:50 12/04/16 05:50 Labs: Laboratory Results - last 24 hr 12/03/16 12/03/16 12/03/16 09:43 11:23 16:41 WBC RBC Hgb Hct MCV MCH MCHC RDW Plt Count MPV Immature Gran % Seg Neutrophils % Lymphocytes % Monocytes % Eosinophils % Basophils % Neutrophils # Lymphocytes # Monocytes # Eosinophils # Basophils # Sodium Potassium Chloride Carbon Dioxide BUN Creatinine Est GFR ( Amer) Est GFR (Non-Af Amer) BUN/Creatinine Ratio Glucose POC Glucose 132 H 138 H Calculated Osmolality Calcium Iron 61 % Saturation 52 H Transferrin 84 L Ferritin 766 H Total Bilirubin AST ALT Alkaline Phosphatase Serum Total Protein Albumin Globulin Albumin/Globulin Ratio 12/03/16 12/04/16 12/04/16 20:05 05:50 05:50 WBC 12.2 H RBC 2.85 L Hgb 8.4 L Hct 26.7 L MCV 93.7 MCH 29.5 MCHC 31.5 L RDW 15.6 H Plt Count 319 MPV 8.7 L Immature Gran % 0.5 Seg Neutrophils % 81.8 Lymphocytes % 8.1 Monocytes % 7.0 Eosinophils % 2.1 Basophils % 0.5 Neutrophils # 10.0 H Lymphocytes # 1.0 Monocytes # 0.9 Eosinophils # 0.3 Basophils # 0.1 Sodium 141 Potassium 4.3 Chloride 105 Carbon Dioxide 23 BUN 79 H Creatinine 3.25 H Est GFR ( Amer) 17 L Est GFR (Non-Af Amer) 14 L BUN/Creatinine Ratio 24 Glucose 155 H POC Glucose 207 H Calculated Osmolality 319 H Calcium 8.3 L Iron % Saturation Transferrin Ferritin Total Bilirubin 0.4 AST 23 ALT 17 Alkaline Phosphatase 129 H Serum Total Protein 7.1 Albumin 2.1 L Globulin 5.0 H Albumin/Globulin Ratio 0.4 L - ABG Interpretation ABG results: ABG ABG pH 7.38 pH Units (7.32-7.45) 11/30/16 11:24 ABG pCO2 43 mmHg (35-45) 11/30/16 11:24 ABG pO2 124 mmHg (85-104) H 11/30/16 11:24 ABG O2 Saturation 99 % (95-98) H 11/30/16 11:24 PT/INR, D-dimer PT 13.3 Seconds (9.4-12.1) H 11/30/16 02:30 D-Dimer 3305 ng/mLFEU (0-500) H 11/30/16 02:30 Consult Discharge Plan - Plan Referrals: NO,PCP [Primary Care Provider] -
[2016-12-04] MEDS: Loratadine 10 MG TABLET PO SCH (09:51)
[2016-12-04] MEDS: Aspirin 81 MG TAB.CHEW PO SCH (09:51)
[2016-12-04] MEDS: Metoprolol XL (24 HR) Succ 25 MG TAB.ER.24H PO SCH (09:52)
[2016-12-04] MEDS: Isosorbide MONOnitrate (24 HR) 30 MG TAB.ER.24H PO SCH (09:52)
[2016-12-04] MEDS: Levothyroxine 25 MCG TABLET PO SCH (09:52)
[2016-12-04] MEDS: Saline Nasal Spray 44 ML BOTTLE NS SCH ×3 (09:56→21:59)
--- NOTE | 2016-12-04 11:14 | Internal Med Progress Note ---
<Jay Oglesby - Last Filed: 12/04/16 11:11> Date of Encounter: 12/04/16 Time of Encounter: 11:11 - Assessment and plan (1) Hemoptysis Current Visit: Yes Status: Acute Assessment and plan: No recurrence. Stable. Plan: - Continue to hold anticoagulation - Monitor symptoms and blood work. (2) Hypertension Current Visit: No Status: Acute Assessment and plan: History of hypertension, currently blood pressure is controlled continue to hold antihypertensives. Qualifiers: Hypertension type: essential hypertension Qualified Code(s): I10 - Essential (primary) hypertension (3) Type 2 diabetes mellitus with diabetic chronic kidney disease Current Visit: No Status: Acute Assessment and plan: Known type 2 diabetes patient is on Levemir twice a day at home. Current glucoses are stable. 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 Cephalization appreciated on chest x-ray. Troponins trended upward during inpatient stay EKGs were normal sinus rhythm. Echocardiogram demonstrates mild left ventricular systolic dysfunction with LVEF of 40-45%. Global left ventricle hypokinesis. Moderate left ventricle diastolic dysfunction. Normal right ventricular size and function. Mild mitral regurgitation. No evidence of pulmonary hypertension. - Cardiology was consult and was involved in the patient's care and determined she is not a candidate for left heart catheterization and intervention. - Medical management this time. 12/04/2016: Patient continues to be asymptomatic. No new symptoms. Plan: - Low sodium diet - 1500ml fluid restrictions - daily weights Qualifiers: Congestive heart failure type: combined Qualified Code(s): I50.43 - Acute on chronic combined systolic (congestive) and diastolic (congestive) heart failure (5) Acute on chronic renal failure Current Visit: No Status: Acute Assessment and plan: Patient presents with acute on chronic renal failure current creatinine is 3.76 which is elevated compared to baseline. Baseline creatinine 1.23 after chart review. I have contacted the patient's travel service consultant Dr. Perez and discussed the patient and consulted the nephrology team. - The patient appears volume overloaded but compared to laboratory results appears to be intravascularly dry. This may be secondary to malnutrition as the patient is a low albumin and third spacing. This may also be secondary to urinary retention as the patient had 1100 ML's of urine without any symptoms of having to urinate. Also considering urinary tract infection as the patient was straight cathetered in a milky white substance was extracted from her bladder. 12/03/2016: - Renal function slightly improved but continues to stay elevated. This may be a mixed picture with poor perfusion secondary to acute systolic failure, urinary retention and enterococcus urinary tract infection. 12/04/2016: Renal function slightly improved compared to the previous day but still continues to have a creatinine of 3.25, tolerating normal saline at 75 ML' s per hour Plan: - Hold nephrotoxic medications and renally dose antibiotics. - Monitor renal function with a.m. labs - We will renally dose vancomycin for the outpatient setting. - Nephrology following appreciate their recommendations. (6) Hyperkalemia Current Visit: Yes Status: Acute Assessment and plan: Resolved. Secondary to renal insufficiency. - Continue with low potassium diet - Continue to hold patient's spironolactone and lisinopril (7) UTI (urinary tract infection) Current Visit: Yes Status: Acute Assessment and plan: Patient presents to emergency department with hemoptysis found to have urinary tract infection with leukocytes esterase large, many bacteria and cloudy yellow urine. Urine also had protein. Specific gravity 1.014. 12/03/2016: Enterococcus faecium and faecalis urinary tract infection. Continue his Zosyn. -Renal function improving slowly. 12/04/2016: Urine culture is growing enterococcus faecium and faecalis both sensitive to vancomycin. Patient has completed 4 days of vancomycin and Zosyn. We will discontinue Zosyn patient will be discharged with vancomycin tomorrow. Qualifiers: Urinary tract infection type: site unspecified Hematuria presence: without hematuria Qualified Code(s): N39.0 - Urinary tract infection, site not specified (8) Protein calorie malnutrition Current Visit: Yes Status: Acute Assessment and plan: Patient has been seen by dietitian in the past, history of protein malnutrition. Her malnutrition is likely contributing to her current medical picture. Plan: - Continue recommendations per dietitian for protein malnutrition. (9) Anemia of chronic disease Current Visit: No Status: Chronic Assessment and plan: Patient is a history of chronic anemia secondary to chronic kidney disease. Patient presented with a hemoglobin of 6.3 follow-up was 7.0. Patient was transfused 2 units PRBCs 12/01/2016. - Hemoglobin stable at 8.3 today. 12/04/2016: Hemoglobin remained stable. Plan: - Continue to monitor hemoglobin - Continue to hold anticoagulation continue SCDs. - Replace as necessary. - Continue recommendations per nephrology. (10) Elevated troponin Current Visit: No Status: Acute Assessment and plan: Patient presented with elevated troponin which then increased from 0.02-1.03- 4.09. Cardiology was consulted, after further evaluation with echocardiogram and patient workup patient was deemed not a candidate for left heart catheterization. -Echocardiogram demonstrates mild left ventricular systolic dysfunction with LVEF of 40-45%. Global left ventricle hypokinesis. Moderate left ventricle diastolic dysfunction. Normal right ventricular size and function. Mild mitral regurgitation. No evidence of pulmonary hypertension. 12/04/2016 patient continues to deny chest pain, palpitations, or any other concerning symptoms. Plan: Medical management. - Continue Imdur, statin, beta-frank - Hold aspirin with recent hemoptysis - hold lisinopril with PRADEEP (11) DVT prophylaxis Current Visit: No Status: Acute Assessment and plan: SCDs. - Subjective Interval history: Ms. Dsouza 71 F seen and evaluated patient bedside this morning. She is alert awake interactive no acute distress. She has any discomforts pains or any other concerns this morning. She denies any recurrence of hemoptysis, nausea, vomiting, diarrhea. She denies any other concerning symptoms. She said she did not sleep well overnight and is tired this morning. No further complaints. - Constitutional Vitals: Temp Pulse Resp BP Pulse Ox 98.4 F 98 18 148/83 93 12/04/16 06:55 12/04/16 06:55 12/04/16 10:22 12/04/16 06:55 12/04/16 10:22 General appearance: Present: cooperative, A&O X 3, morbidly obese, no acute distress - Head Head exam: Present: atraumatic, normocephalic - Eye Eye exam: Present: PERRL, conjuntiva pink, sclera anicteric Pupils: Present: PERRL - ENT ENT exam: Present: mucous membranes moist - Neck Neck exam general surgery: Present: supple, trachea midline. Absent: lymphadenopathy - Respiratory Respiratory exam: Present: CTAB. Absent: accessory muscle use, rales, rhonchi, wheezes - Cardiovascular Cardiovascular exam: Present: RRR, +S1, +S2. Absent: diastolic murmur, gallop, rubs, systolic murmur - GI/Abdominal GI/Abdominal exam: Present: normal bowel sounds, soft, no peritoneal signs. Absent: distended, tenderness - Extremities Exam Extremities exam: Present: pedal edema, warm, radial pulses palpable and symetrical. Absent: calf tenderness, cyanotic Additional comments: Bilateral LE 2+ pitting edema. Anasarca - Neurological Exam Neurological exam: Present: alert, no focal deficits. Absent: pronater drift, facial droop, speech deficit - Psychiatric Psychiatric exam: Present: normal affect, normal mood Internal Medicine: Result - Labs CBC & Chem 7: 12/04/16 05:50 12/04/16 05:50 Labs: Short CBC 12/04/16 Range/Units 05:50 WBC 12.2 H (4.3-11.1) K/mcL Hgb 8.4 L (11.5-15.4) g/dL Hct 26.7 L (35.3-44.9) % Plt Count 319 (140-400) K/mcL Neutrophils # 10.0 H (1.6-8.9) K/mcL BMP 12/04/16 05:50 Sodium 141 Potassium 4.3 Chloride 105 Carbon Dioxide 23 BUN 79 H Creatinine 3.25 H Glucose 155 H Calcium 8.3 L Liver Function 12/04/16 Range/Units 05:50 Total Bilirubin 0.4 (0.2-1.2) mg/dL AST 23 (5-34) Units/L ALT 17 (0-55) Units/L Alkaline Phosphatase 129 H (38-126) Units/L Albumin 2.1 L (3.5-5.0) g/dL - ABG Interpretation ABG results: ABG ABG pH 7.38 pH Units (7.32-7.45) 11/30/16 11:24 ABG pCO2 43 mmHg (35-45) 11/30/16 11:24 ABG pO2 124 mmHg (85-104) H 11/30/16 11:24 ABG O2 Saturation 99 % (95-98) H 11/30/16 11:24 PT/INR, D-dimer PT 13.3 Seconds (9.4-12.1) H 11/30/16 02:30 D-Dimer 3305 ng/mLFEU (0-500) H 11/30/16 02:30 - VTE Documentation of Mechanical Device: Intermittent pneumatic compression device Consult Discharge Plan - Plan Referrals: NO,PCP [Primary Care Provider] - <Peter Phoenix - Last Filed: 12/04/16 17:24> Date of Encounter: 12/04/16 - Assessment and plan (1) Anemia in chronic kidney disease Current Visit: Yes Status: Acute (2) Diabetes mellitus Current Visit: No Status: Chronic Qualifiers: Diabetes mellitus type: type 2 Diabetes mellitus complication status: with kidney complications Diabetes mellitus complication detail: with chronic kidney disease Diabetes mellitus shelter insulin use: with adjunct faculty for medical terminology use Chronic kidney disease stage: stage 3 (moderate) Qualified Code(s): E11.22 - Type 2 diabetes mellitus with diabetic chronic kidney disease; N18.3 - Chronic kidney disease, stage 3 (moderate); Z79.4 - keno terminal operator (current) use of insulin (3) COPD (chronic obstructive pulmonary disease) Current Visit: No Status: Chronic Qualifiers: COPD type: chronic bronchitis Chronic bronchitis type: mucopurulent Qualified Code(s): J41.1 - Mucopurulent chronic bronchitis (4) Morbid obesity with BMI of 45.0-49.9, adult Current Visit: No Status: Chronic (5) UTI (urinary tract infection) Current Visit: Yes Status: Acute Qualifiers: Urinary tract infection type: site unspecified Hematuria presence: without hematuria Qualified Code(s): N39.0 - Urinary tract infection, site not specified (6) Acute kidney injury superimposed on chronic kidney disease Current Visit: Yes Status: Acute (7) Cellulitis Current Visit: Yes Status: Acute Qualifiers: Site of cellulitis of trunk: abdominal wall Qualified Code(s): L03.311 - Cellulitis of abdominal wall - Constitutional Vitals: Temp Pulse Resp BP Pulse Ox 98.1 F 84 20 132/61 94 12/04/16 15:12 12/04/16 15:12 12/04/16 15:29 12/04/16 15:25 12/04/16 15:29 Internal Medicine: Result - Labs CBC & Chem 7: 12/04/16 05:50 12/04/16 05:50 Labs: Short CBC 12/04/16 Range/Units 05:50 WBC 12.2 H (4.3-11.1) K/mcL Hgb 8.4 L (11.5-15.4) g/dL Hct 26.7 L (35.3-44.9) % Plt Count 319 (140-400) K/mcL Neutrophils # 10.0 H (1.6-8.9) K/mcL BMP 12/04/16 05:50 Sodium 141 Potassium 4.3 Chloride 105 Carbon Dioxide 23 BUN 79 H Creatinine 3.25 H Glucose 155 H Calcium 8.3 L Liver Function 12/04/16 Range/Units 05:50 Total Bilirubin 0.4 (0.2-1.2) mg/dL AST 23 (5-34) Units/L ALT 17 (0-55) Units/L Alkaline Phosphatase 129 H (38-126) Units/L Albumin 2.1 L (3.5-5.0) g/dL - ABG Interpretation ABG results: ABG ABG pH 7.38 pH Units (7.32-7.45) 11/30/16 11:24 ABG pCO2 43 mmHg (35-45) 11/30/16 11:24 ABG pO2 124 mmHg (85-104) H 11/30/16 11:24 ABG O2 Saturation 99 % (95-98) H 11/30/16 11:24 PT/INR, D-dimer PT 13.3 Seconds (9.4-12.1) H 11/30/16 02:30 D-Dimer 3305 ng/mLFEU (0-500) H 11/30/16 02:30 - Attending Attestation I examined this patient and my medical decision-making was reviewed with the Resident Physician, Dr Oglesby. I agree with the documented findings, disposition and treatment plan as described except to the extent set forth below. Patient reports no more hemoptysis nausea or vomiting. She is in no acute distress awake alert oriented. Abdomen soft nontender nondistended with normoactive bowel sounds. Extremities with 2+ pitting edema. Plan: Continue with vancomycin for enterococcus UTI and pneumonia. Stop Zosyn since vancomycin provides adequate coverage. Continue Mccarty catheter for urinary retention.
[2016-12-04] MEDS ORDERED: Vancomycin 1,000 MG in D5% in Water 250 ML IVPB ONE (17:00)
[2016-12-04] MEDS ORDERED: Gabapentin 300 MG CAPSULE PO SCH (21:00)
[2016-12-05 04:03] LABS: Basophils # 0.1 K/mcL (0.0-0.2); Basophils % 0.5 %; Eosinophils # 0.4 K/mcL (0.0-0.6); Eosinophils % 4.4 %; Hemoglobin 7.9 g/dL (11.5-15.4); Immature Granulocytes % 0.6 % (0-4); Lymphocytes # 1.2 K/mcL (0.6-4.6); Lymphocytes % 12.4 %; Mean Corpuscular HGB Conc 31.6 g/dL (31.6-35.5); Mean Corpuscular Hemoglobin 30.4 pg (28.0-33.3); Mean Corpuscular Volume 96.2 fL (83.0-100.0); Mean Platelet Volume 8.8 fL (9.4-12.4); Monocytes # 0.8 K/mcL (0.0-1.3); Monocytes % 7.9 %; Neutrophils # 7.4 K/mcL (1.6-8.9); Platelet Count 294 K/mcL (140-400); Red Cell Distribution Width 15.6 % (11.5-14.5); Segmented Neutrophils % 74.2 %
[2016-12-05 04:13] LABS: Calcium 8.3 mg/dL (8.6-10.8); Potassium 3.9 mEq/L (3.5-4.5)
[2016-12-05] MEDS: Ipratropium/Albuterol Neb 3 ML IH SCH ×2 (04:15→10:25)
[2016-12-05] MEDS: 0.9 % Sodium Chloride 1,000 ML IVC SCH (06:41)
[2016-12-05] MEDS: Insulin LISPRO 300 UNITS/3 ML VIAL SQ SCH ×2 (08:28→12:09)
[2016-12-05] MEDS: Aspirin 81 MG TAB.CHEW PO SCH (08:29)
[2016-12-05] MEDS: Levothyroxine 25 MCG TABLET PO SCH (08:29)
[2016-12-05] MEDS: Isosorbide MONOnitrate (24 HR) 30 MG TAB.ER.24H PO SCH (08:31)
[2016-12-05] MEDS: Saline Nasal Spray 44 ML BOTTLE NS SCH (08:31)
[2016-12-05] MEDS: Loratadine 10 MG TABLET PO SCH (08:31)
[2016-12-05] MEDS: Metoprolol XL (24 HR) Succ 25 MG TAB.ER.24H PO SCH (08:31)
[2016-12-05] MEDS ORDERED: Metoprolol XL (24 HR) Succ 25 MG TAB.ER.24H PO SCH (10:46)
--- NOTE | 2016-12-05 11:00 | Discharge Summary ---
<Jay Oglesby - Last Filed: 12/05/16 10:50> Date of Encounter: 12/05/16 Time of Encounter: 10:50 - Discharge Diagnosis (1) Hemoptysis Priority: Primary Status: Acute (2) Hypertension Priority: Primary Status: Acute Qualifiers: Hypertension type: essential hypertension Qualified Code(s): I10 - Essential (primary) hypertension (3) Type 2 diabetes mellitus with diabetic chronic kidney disease Priority: Primary Status: Acute Qualifiers: Diabetes mellitus skilled nursing insulin use: with technician terminal and repeater use Chronic kidney disease stage: stage 4 (severe) Qualified Code(s): E11.22 - Type 2 diabetes mellitus with diabetic chronic kidney disease; N18.4 - Chronic kidney disease, stage 4 (severe); Z79.4 - nursing home (current) use of insulin (4) CHF exacerbation Priority: Secondary Status: Chronic Qualifiers: Congestive heart failure type: combined Qualified Code(s): I50.43 - Acute on chronic combined systolic (congestive) and diastolic (congestive) heart failure (5) Acute on chronic renal failure Priority: Primary Status: Acute (6) Hyperkalemia Priority: Secondary Status: Acute (7) UTI (urinary tract infection) Priority: Secondary Status: Acute Qualifiers: Urinary tract infection type: site unspecified Hematuria presence: without hematuria Qualified Code(s): N39.0 - Urinary tract infection, site not specified (8) Protein calorie malnutrition Priority: Primary Status: Acute (9) Anemia of chronic disease Priority: Primary Status: Chronic (10) Elevated troponin Priority: Primary Status: Acute (11) DVT prophylaxis Priority: Secondary Status: Acute - Discharge Medications Prescriptions: ClonazePAM [Klonopin] 1 mg PO TID PRN 3 Days PRN Reason: Anxiety Linezolid [Zyvox] 600 mg PO BID 9 Days Home Medications: Cholecalciferol (Vitamin D3) [Vitamin D3] 50,000 unit PO QWEEK 05/30/16 [History ] Gabapentin [Neurontin] 300 mg PO BID 05/30/16 [History] Insulin ASPART [NovoLOG] 1 - 5 unit SQ ACHS 05/30/16 [History] Isosorbide MONOnitrate (24 HR) [Imdur] 30 mg PO DAILY 05/30/16 [History] CloNIDine HCl [Clonidine HCl] 0.2 mg PO BID #60 tab 10/31/16 [Rx] Aspirin 81 mg PO DAILY 12/06/16 [History] Insulin DETEMIR [Levemir] 50 unit SQ QAM 07/10/16 [History] Insulin DETEMIR [Levemir] 55 unit SQ HS 07/10/16 [History] Acetaminophen [Tylenol] 650 mg PO Q6HR PRN #0 tablet 07/20/16 [Rx] Ipratropium/Albuterol Neb [Duoneb] 3 ml IH [id number] inhsol 07/20/16 [Rx] Atorvastatin Calcium [Lipitor] 80 mg PO DAILY 07/31/16 [History] Budesonide/Formoterol 160/4.5 [Symbicort 160/4.5] 2 puff IH BID 07/31/16 [ History] Clopidogrel [Plavix] 75 mg PO DAILY 07/31/16 [History] Levothyroxine [Synthroid] 25 mcg PO DAILY 07/31/16 [History] Loperamide [Imodium] 2 mg PO Q4HR PRN 07/31/16 [History] Pantoprazole Sodium [Protonix] 40 mg PO DAILY 07/31/16 [History] Saline Nasal [place] [[place] Nasal [place]] 2 spray NS TID 07/31/16 [History] Tiotropium [Spiriva] 18 mcg IH DAILY 07/31/16 [History] Furosemide [Lasix] 40 mg PO BID #0 08/12/16 [Rx] Metoprolol Succinate 25 mg PO DAILY #30 tab.er.24h 08/12/16 [Rx] Furosemide [Lasix] 20 mg PO QPM 10/07/16 [History] Multivitamin [One Daily Multivitamin] 1 tab PO DAILY 10/07/16 [History] ClonazePAM [Klonopin] 1 mg PO TID PRN 3 Days 12/05/16 [Rx] Linezolid [Zyvox] 600 mg PO BID 9 Days 12/05/16 [Rx] Allergies/Adverse Reactions: Allergies No Known Allergies Allergy (Verified 07/24/16 16:19) Date of admission: 11/30/16 16:08 Primary care physician: PCP NO Consults: 12/01/16 02:04 Consult to Cardiology [CONS] Routine Comment: Consulting Provider: Cardiology Sameera Reason for Consult: NSTEMI vs renal failure Call Completed: Yes 12/01/16 11:47 Consult to Palliative Care [CONS] Routine Comment: Consulting Provider: Palliative Care Sameera Discharging clinician: Jay Oglesby Anticipated date of discharge: 12/05/16 - Patient Status Disposition: Transfer Inpatient Rehab Fac Condition: Good Functional capacity at discharge: bed bound Overall status at discharge: patient is progressing back to baseline - Discharge Instructions Instructions: Urinary Tract Infection in Women (DC) Follow Up With: Josep Perez DO [Non-Partnered Physician] - 01/01/17 10:00 am Collin Fine MD [Partnered Physician] - 12/13/16 2:45 pm NO,PCP [Primary Care Provider] - Additional Instructions: complete antibiotics as prescribed. Follow up with urology for urinary retention, indwelling Mccarty catheter, neurogenic bladder. Recurrent urinary tract infections. -Follow up with primary care provider in the next 3-5 days - Follow up with nephrology for evaluation of acute on chronic kidney disease. - Diet and Activity Activity: as per physical therapy Diet: advance to your usual diet (add ensure to each meal) Hospital course: Ms. Dsouza is a 71 year old female - Time Spent with Patient Total time spent providing and/or coordinating discharge services: - Constitutional Vitals: Temp Pulse Resp BP Pulse Ox 98.3 F 90 16 99/58 98 12/05/16 06:39 12/05/16 06:39 12/05/16 10:27 12/05/16 06:39 12/05/16 10:27 General appearance: Present: cooperative, A&O X 3, morbidly obese, no acute distress - VTE Documentation of Mechanical Device: Intermittent pneumatic compression device <Peter Phoenix - Last Filed: 12/05/16 19:27> Date of Encounter: 12/05/16 - Discharge Diagnosis (1) Anemia in chronic kidney disease Status: Acute (2) Diabetes mellitus Status: Chronic Qualifiers: Diabetes mellitus type: type 2 Diabetes mellitus complication status: with kidney complications Diabetes mellitus complication detail: with chronic kidney disease Diabetes mellitus skilled nursing insulin use: with technician terminal and repeater use Chronic kidney disease stage: stage 3 (moderate) Qualified Code(s): E11.22 - Type 2 diabetes mellitus with diabetic chronic kidney disease; N18.3 - Chronic kidney disease, stage 3 (moderate); Z79.4 - nursing home (current) use of insulin (3) COPD (chronic obstructive pulmonary disease) Status: Chronic Qualifiers: COPD type: chronic bronchitis Chronic bronchitis type: mucopurulent Qualified Code(s): J41.1 - Mucopurulent chronic bronchitis (4) Morbid obesity with BMI of 45.0-49.9, adult Status: Chronic (5) UTI (urinary tract infection) Status: Acute Qualifiers: Urinary tract infection type: site unspecified Hematuria presence: without hematuria Qualified Code(s): N39.0 - Urinary tract infection, site not specified (6) Acute kidney injury superimposed on chronic kidney disease Status: Acute (7) Cellulitis Status: Acute Qualifiers: Site of cellulitis of trunk: abdominal wall Qualified Code(s): L03.311 - Cellulitis of abdominal wall Date of admission: 11/30/16 16:08 Primary care physician: PCP NO Consults: 12/01/16 02:04 Consult to Cardiology [CONS] Routine Comment: Consulting Provider: Cardiology Sameera Reason for Consult: NSTEMI vs renal failure Call Completed: Yes 12/01/16 11:47 Consult to Palliative Care [CONS] Routine Comment: Consulting Provider: Palliative Care [place] - Patient Status Functional capacity at discharge: bed bound Hospital course: Ms. Dsouza is a 71 year old female - Time Spent with Patient Total time spent providing and/or coordinating discharge services: - Constitutional Vitals: Temp Pulse Resp BP Pulse Ox 98.3 F 89 18 134/78 95 12/05/16 13:30 12/05/16 13:30 12/05/16 13:30 12/05/16 13:30 12/05/16 13:30 - Attending Attestation I examined this patient and my medical decision-making was reviewed with the Resident Physician, Dr Oglesby. I agree with the documented findings, disposition and treatment plan as described except to the extent set forth below. Discharge diagnosis: Pneumonia with enterococcus faecalis. The patient is an elderly lady with multiple medical comorbidities sent from the [facility] for evaluation of hemoptysis. She was diagnosed with healthcare associated pneumonia and UTI. She had [place] I diagnosed based on elevated creatinine. She was also found to have elevation in troponin and was diagnosed with non-ST elevation [place]. She was treated with broad-spectrum IV antibiotics. Her urine culture grew Enterococcus faecalis and enterococcus faecium which was resistant to beta lactams. Her antibiotic was narrowed to vancomycin. Sputum culture grew Enterococcus faecalis. She will be discharged to [facility] with Zyvox given her presentation with acute kidney injury and the fact that she does not have full recovery of her kidney function.
--- NOTE | 2016-12-05 11:13 | Physician Discharge Referral ---
[facility] Referral Info Transfer To: ECF Provider in Charge after Transfer: PCP Institutional Level of Care: Skilled - Diagnosis (1) Hemoptysis Priority: Primary Status: Acute (2) Hypertension Priority: Primary Status: Acute (3) Type 2 diabetes mellitus with diabetic chronic kidney disease Priority: Primary Status: Acute (4) CHF exacerbation Priority: Primary Status: Chronic (5) Acute on chronic renal failure Priority: Primary Status: Acute (6) Hyperkalemia Priority: Primary Status: Acute (7) UTI (urinary tract infection) Priority: Primary Status: Acute (8) Protein calorie malnutrition Priority: Primary Status: Acute (9) Anemia of chronic disease Priority: Primary Status: Chronic (10) Elevated troponin Priority: Primary Status: Acute (11) DVT prophylaxis Priority: Secondary Status: Acute - Transfer Medications Prescriptions: ClonazePAM [Klonopin] 1 mg PO TID PRN 3 Days PRN Reason: Anxiety Linezolid [Zyvox] 600 mg PO BID 9 Days Home Medications: Cholecalciferol (Vitamin D3) [Vitamin D3] 50,000 unit PO QWEEK 05/30/16 [History ] Gabapentin [Neurontin] 300 mg PO BID 05/30/16 [History] Insulin ASPART [NovoLOG] 1 - 5 unit SQ ACHS 05/30/16 [History] Isosorbide MONOnitrate (24 HR) [Imdur] 30 mg PO DAILY 05/30/16 [History] CloNIDine HCl [Clonidine HCl] 0.2 mg PO BID #60 tab 06/04/16 [Rx] Aspirin 81 mg PO DAILY 07/10/16 [History] Insulin DETEMIR [Levemir] 50 unit SQ QAM 07/10/16 [History] Insulin DETEMIR [Levemir] 55 unit SQ HS 07/10/16 [History] Acetaminophen [Tylenol] 650 mg PO Q6HR PRN #0 tablet 07/20/16 [Rx] Ipratropium/Albuterol Neb [Duoneb] 3 ml IH [id number] inhsol 07/20/16 [Rx] Atorvastatin Calcium [Lipitor] 80 mg PO DAILY 07/31/16 [History] Budesonide/Formoterol 160/4.5 [Symbicort 160/4.5] 2 puff IH BID 07/31/16 [ History] Clopidogrel [Plavix] 75 mg PO DAILY 07/31/16 [History] Levothyroxine [Synthroid] 25 mcg PO DAILY 07/31/16 [History] Loperamide [Imodium] 2 mg PO Q4HR PRN 07/31/16 [History] Pantoprazole Sodium [Protonix] 40 mg PO DAILY 07/31/16 [History] Saline Nasal [place] [[place] Nasal [place]] 2 spray NS TID 07/31/16 [History] Tiotropium [Spiriva] 18 mcg IH DAILY 07/31/16 [History] Furosemide [Lasix] 40 mg PO BID #0 08/12/16 [Rx] Metoprolol Succinate 25 mg PO DAILY #30 tab.er.24h 08/12/16 [Rx] Furosemide [Lasix] 20 mg PO QPM 10/07/16 [History] Multivitamin [One Daily Multivitamin] 1 tab PO DAILY 10/07/16 [History] ClonazePAM [Klonopin] 1 mg PO TID PRN 3 Days 12/05/16 [Rx] Linezolid [Zyvox] 600 mg PO BID 9 Days 12/05/16 [Rx] Allergies/Adverse Reactions: Allergies No Known Allergies Allergy (Verified 07/24/16 16:19) - Respiratory Orders Smoking Cessation: Smoking cessation has been advised. For more information, call the [facility] Tobacco Quit Line at 3-228-OSLT-NOW. - Ancillary Orders May use pressure relief devices daily prn, May consult with Dentist, Shellfish Processing Laborer, Tray Checker PRN - Advance Directives Living Will: No Power of Sales Commissions Analyst: No Code Status: DNR-Arrest/Don't Intubate - Rehabiliation Orders Rehab Potential: Fair Rehab Orders: Evaluation for Physical Therapy, Evaluation for Occupational Therapy - Treatments Skin tear care topically daily PRN per policy, Fleet enema rectally every other day PRN cleansing purposes CERTIFICATION: I certify that the transfer of the above named patient to an Extended Care Facility is necessary for the continuing treatment of the diagnosis listed. The above information is true and accurate reflection of patient's current condition. Confidential - Redisclosure prohibited without a patient's written consent.
[2016-12-05] MEDS ORDERED: Aminoglycoside Consult 1 EACH MC ONE (13:24)
[2016-12-05 13:31] VITALS: BP 134/78
[2016-12-06] MEDS ORDERED: Linezolid 600 MG TABLET PO SCH (09:00)
== END 2016-12-05 13:25 | DRG 280 ==
LOC: 3ANU 01:23 → EMEROO 01:23 → 3ANU 05:02 → SUATTDRO 16:08
PROVIDERS: ADMIT Internal Medicine; ATTEND Internal Medicine

== ENCOUNTER 2017-01-16 14:26 | Inpatient (IN) ==
--- NOTE | 2017-01-16 15:06 | Emergency Department Note ---
Disposition Clinical Impression: Non-STEMI (non-ST elevated myocardial infarction) UTI (urinary tract infection) Qualifiers: Urinary tract infection type: acute cystitis Hematuria presence: without hematuria Qualified Code(s): N30.00 - Acute cystitis without hematuria Pneumonia Qualifiers: Pneumonia type: due to unspecified organism Laterality: unspecified laterality Lung location: unspecified part of lung Qualified Code(s): J18.9 - Pneumonia, unspecified organism Disposition: Admitted As Inpatient Condition: Serious Referrals: NO,PCP [Primary Care Provider] - Forms: ED Satisfaction Letter Time of Disposition: 17:10 Altered Mental Status HPI - General Chief Complaint: ED Altered Mental Status Stated Complaint: AMS Time Seen by Provider: 01/16/17 14:34 Source: patient, EMS Mode of arrival: EMS Limitations: altered mental status Nursing Notes Reviewed: Yes Vital Signs Reviewed: Yes - History of Present Illness HPI Narrative: 71-year-old whose at the detention was noted to have increased confusion and less responsiveness and a fever. Her M[place]arty does show cloudy urine on arrival. I' ll signs of been stable. MD complaint: altered mental status, confusion Onset (ago): Just VP [employer] Timing confirmed by: caregiver - Related Data Home Medications Medication Instructions Recorded Confirmed Cholecalciferol (Vitamin D3) 50,000 unit PO QWEEK 05/30/16 11/30/16 [Vitamin D3] Gabapentin [Neurontin] 300 mg PO BID 05/30/16 11/30/16 Insulin ASPART [NovoLOG] 1 - 5 unit SQ ACHS 05/30/16 11/30/16 Isosorbide MONOnitrate (24 HR) 30 mg PO DAILY 05/30/16 11/30/16 [Imdur] Aspirin 81 mg PO DAILY 07/10/16 11/30/16 Insulin DETEMIR [Levemir] 50 unit SQ QAM 07/10/16 11/30/16 Insulin DETEMIR [Levemir] 55 unit SQ HS 07/10/16 11/30/16 Atorvastatin Calcium [Lipitor] 80 mg PO DAILY 07/31/16 11/30/16 Budesonide/Formoterol 160/4.5 2 puff IH BID 07/31/16 11/30/16 [Symbicort 160/4.5] Clopidogrel [Plavix] 75 mg PO DAILY 07/31/16 11/30/16 Levothyroxine [Synthroid] 25 mcg PO DAILY 07/31/16 11/30/16 Loperamide [Imodium] 2 mg PO Q4HR PRN 07/31/16 11/30/16 Pantoprazole Sodium [Protonix] 40 mg PO DAILY 07/31/16 11/30/16 Saline Nasal [place] [[place] Nasal 2 spray NS TID 07/31/16 11/30/16 [place]] Tiotropium [Spiriva] 18 mcg IH DAILY 07/31/16 11/30/16 Furosemide [Lasix] 20 mg PO QPM 10/07/16 11/30/16 Multivitamin [One Daily 1 tab PO DAILY 10/07/16 11/30/16 Multivitamin] Previous Rx's Medication Instructions Recorded cloNIDine HCl [Clonidine HCl] 0.2 mg PO BID #60 tab 06/04/16 Acetaminophen [Tylenol] 650 mg PO Q6HR PRN #0 tablet 07/20/16 Ipratropium/Albuterol Neb [Duoneb] 3 ml IH [id number] inhsol 07/20/16 Furosemide [Lasix] 40 mg PO BID #0 08/12/16 Metoprolol Succinate 25 mg PO DAILY #30 tab.er.24h 08/12/16 Linezolid [Zyvox] 600 mg PO BID 9 Days 12/05/16 clonazePAM [Klonopin] 1 mg PO TID PRN 3 Days 12/05/16 Allergies Allergy/AdvReac Type Severity Reaction Status Date / Time No Known Allergies Allergy Verified 07/24/16 16:19 Limitations: ROS unobtainable due to patients medical condition Past Medical History - Past Medical History Medical history: Reports: arthritis, asthma, CHF, COPD, coronary artery disease , CVA, diabetes, GERD, hyperlipidemia, hypertension, myocardial infarction, osteoporosis, renal disease, thyroid disease Surgical history: Reports: non-contributory, other Psychiatric history: Reports: anxiety, depression [employer] history: Reports: no [employer] history - Social History Smoking Status: Never smoker Smokeless Tobacco Status: No Alcohol use: Reports: none Drug use: Reports: none Physical Exam - General Limitations: altered mental status General appearance: alert, in no apparent distress - Head Head exam: atraumatic, normocephalic, normal inspection - Eye Eye exam: Present: normal appearance, PERRL, EOMI - ENT ENT exam: normal exam, normal oropharynx, mucous membranes moist - Neck Neck exam: Present: normal inspection, full ROM, trachea midline - Chest Chest inspection: Present: normal inspection, symmetric chest wall rise - Respiratory Respiratory exam: Present: normal lung sounds bilaterally - Cardiovascular Cardiovascular exam: Present: regular rate, normal rhythm, normal heart sounds - Abdominal Exam Abdominal exam: Present: soft, Non-Tender. Absent: tenderness, distention, guarding, rebound, rigidity - Extremities Exam Extremities exam: Present: normal inspection, full ROM. Absent: tenderness, pedal edema - Expanded Lower Extremity Exam Neurovascular/Tendon exam: Absent: motor deficit, sensory deficit, tendon deficit - Back Exam Back exam: Present: normal inspection, full ROM. Absent: tenderness - Neurological Exam Neurological exam: Absent: motor sensory deficit - Psychiatric Psychiatric exam: Present: normal affect, normal mood - Skin Skin exam: Present: warm, dry, intact, normal color Course - Reevaluation(s) Reevaluation #1: 71-year-old from the detention fever altered mental status. Workup here included an EKG showed no acute change however his troponin was admitted elevated over 12. Urine showed too numerous to count white cells white count was elevated. Patient was not tachycardic blood pressure was stable. Consultation was obtained with cardiology who did not feel the patient was a left heart catheter candidate. They withhold anticoagulation at this time due to the patient's recent anemia and hemoptysis. We'll treat with IV antibiotics. Time: 17:08 - Consultations Consultation #1: I discussed the case with Dr. Gunn cardiology. The patient was admitted in November with a troponin of 4. Had a hemoglobin in the 6 range and had hemoptysis. Most recent hemoglobin show that his her hemoglobin was 7.1 on January 03. The patient does not appear to be a candidate for anticoagulation. Was not a candidate for left heart catheter according to previous consult by cardiology and current consult. Would recommend beta blockers and aspirin. Time: 15:42 Consultation #2: Discussed with Virgen Oates nurse practitioner admit. Time: 17:08 Vital Signs Temperature 97.9 F 01/16/17 14:28 Pulse Rate 83 01/16/17 14:28 Respiratory Rate 20 01/16/17 14:28 Blood Pressure 133/63 01/16/17 14:28 O2 Sat by Pulse Oximetry 97 01/16/17 14:28 Temperature 97.9 F 01/16/17 14:28 Pulse Rate 76 01/16/17 17:10 Respiratory Rate 18 01/16/17 17:10 Blood Pressure 142/63 01/16/17 17:10 O2 Sat by Pulse Oximetry 98 01/16/17 17:10 Oxygen Delivery Oxygen Delivery Nasal Cannula Altered Mental Status - Lab Data Lab results reviewed: Yes I reviewed the patient's lab results. Result diagrams: 01/16/17 14:28 01/16/17 14:28 Lab Results 01/16/17 01/16/17 01/16/17 Range/Units 14:28 14:28 14:28 WBC 16.0 H (4.3-11.1) K/mcL RBC 3.16 L (3.82-4.97) M/mcL Hgb 9.8 L (11.5-15.4) g/dL Hct 31.0 L (35.3-44.9) % MCV 98.1 (83.0-100.0) fL MCH 31.0 (28.0-33.3) pg MCHC 31.6 (31.6-35.5) g/dL RDW 15.4 H (11.5-14.5) % Plt Count 474 H (140-400) K/mcL MPV 9.2 L (9.4-12.4) fL Immature Gran % 0.4 (0-4) % Seg Neutrophils % 77.1 % Lymphocytes % 15.0 % Monocytes % 6.5 % Eosinophils % 0.4 % Basophils % 0.6 % Neutrophils # 12.3 H (1.6-8.9) K/mcL Lymphocytes # 2.4 (0.6-4.6) K/mcL Monocytes # 1.0 (0.0-1.3) K/mcL Eosinophils # 0.1 (0.0-0.6) K/mcL Basophils # 0.1 (0.0-0.2) K/mcL PT 13.7 H (9.4-12.1) Seconds INR 1.3 APTT 25.1 L (26.0-36.0) Seconds Sodium 139 (136-145) mEq/L Potassium 4.2 (3.5-4.5) mEq/L Chloride 97 L (98-109) mEq/L Carbon Dioxide 32 H (19-29) mEq/L BUN 55 H (7-20) mg/dL Creatinine 2.04 H (0.57-1.11) mg/dL Est GFR ( Amer) 29 L (> 60) Est GFR (Non-Af Amer) 24 L (> 60) BUN/Creatinine Ratio 27 H (6-26) Glucose 261 H (70-99) mg/dL Calculated Osmolality 312 H (280-300) Lactic Acid (0.5-2.2) mmol/L Calcium 10.3 (8.6-10.8) mg/dL Total Bilirubin 0.3 (0.2-1.2) mg/dL Direct Bilirubin 0.2 (0.0-0.5) mg/dL Indirect Bilirubin 0.1 (0.0-1.2) mg/dL AST 41 H (5-34) Units/L ALT 12 (0-55) Units/L Alkaline Phosphatase 119 (38-126) Units/L Troponin I (0-0.03) ng/mL Serum Total Protein 7.6 (6.0-8.3) g/dL Albumin 2.5 L (3.5-5.0) g/dL Globulin 5.1 H (2.4-3.5) g/dL Albumin/Globulin Ratio 0.5 L (1.1-2.2) Urine Color (Yellow) Urine Clarity (Clear) Urine pH (5.0-8.0) pH Units Ur Specific [place] (1.010-1.025) Urine Protein (Neg-Trace) mg/dL Urine Glucose (UA) (Normal) mg/dL Urine Ketones (Negative) mg/dL Urine Blood (Negative) Urine Nitrite (Negative) Urine Bilirubin (Negative) Urine Urobilinogen (Normal) mg/dL Ur Leukocyte Esterase (Negative) Urine Microscopic RBC (0-3) per hpf Urine Microscopic WBC (0-3) per hpf Ur Squamous Epith Cells (None-Few) per lpf Ur Renal Epithelial Cell (None-Few) per hpf Urine Bacteria (None-Few) per hpf Ur Culture Indicated? (NO) Urine Opiates Screen (Kvmjhc=638) ng/mL Ur Barbiturates Screen (Zegsez=292) ng/mL Ur Phencyclidine Scrn (Cutoff=25) ng/mL Ur Amphetamines Screen (Kscnpc=8264) ng/mL U Benzodiazepines Scrn (Gteccc=163) ng/mL Urine Cocaine Screen (Cutoff= 300) ng/mL U Marijuana (THC) Screen (Cutoff = 50) ng/mL Ethyl Alcohol < 10 (0-10) mg/dL 01/16/17 01/16/17 01/16/17 Range/Units 14:28 14:28 15:16 WBC (4.3-11.1) K/mcL RBC (3.82-4.97) M/mcL Hgb (11.5-15.4) g/dL Hct (35.3-44.9) % MCV (83.0-100.0) fL MCH (28.0-33.3) pg MCHC (31.6-35.5) g/dL RDW (11.5-14.5) % Plt Count (140-400) K/mcL MPV (9.4-12.4) fL Immature Gran % (0-4) % Seg Neutrophils % % Lymphocytes % % Monocytes % % Eosinophils % % Basophils % % Neutrophils # (1.6-8.9) K/mcL Lymphocytes # (0.6-4.6) K/mcL Monocytes # (0.0-1.3) K/mcL Eosinophils # (0.0-0.6) K/mcL Basophils # (0.0-0.2) K/mcL PT (9.4-12.1) Seconds INR APTT (26.0-36.0) Seconds Sodium (136-145) mEq/L Potassium (3.5-4.5) mEq/L Chloride (98-109) mEq/L Carbon Dioxide (19-29) mEq/L BUN (7-20) mg/dL Creatinine (0.57-1.11) mg/dL Est GFR ( Amer) (> 60) Est GFR (Non-Af Amer) (> 60) BUN/Creatinine Ratio (6-26) Glucose (70-99) mg/dL Calculated Osmolality (280-300) Lactic Acid 1.5 (0.5-2.2) mmol/L Calcium (8.6-10.8) mg/dL Total Bilirubin (0.2-1.2) mg/dL Direct Bilirubin (0.0-0.5) mg/dL Indirect Bilirubin (0.0-1.2) mg/dL AST (5-34) Units/L ALT (0-55) Units/L Alkaline Phosphatase (38-126) Units/L Troponin I 12.26 H* (0-0.03) ng/mL Serum Total Protein (6.0-8.3) g/dL Albumin (3.5-5.0) g/dL Globulin (2.4-3.5) g/dL Albumin/Globulin Ratio (1.1-2.2) Urine Color Dark Yellow (Yellow) Urine Clarity Turbid A (Clear) Urine pH 6.0 (5.0-8.0) pH Units Ur Specific [place] 1.018 (1.010-1.025) Urine Protein >=300 H (Neg-Trace) mg/dL Urine Glucose (UA) Normal (Normal) mg/dL Urine Ketones Trace H (Negative) mg/dL Urine Blood Large H (Negative) Urine Nitrite Negative (Negative) Urine Bilirubin Negative (Negative) Urine Urobilinogen Normal (Normal) mg/dL Ur Leukocyte Esterase Large H (Negative) Urine Microscopic RBC Present (0-3) per hpf Urine Microscopic WBC TNTC H (0-3) per hpf Ur Squamous Epith Cells Present (None-Few) per lpf Ur Renal Epithelial Cell Present (None-Few) per hpf Urine Bacteria Present (None-Few) per hpf Ur Culture Indicated? YES A (NO) Urine Opiates Screen (Lhldnf=783) ng/mL Ur Barbiturates Screen (Gaywgp=486) ng/mL Ur Phencyclidine Scrn (Cutoff=25) ng/mL Ur Amphetamines Screen (Jcrhdv=3268) ng/mL U Benzodiazepines Scrn (Hestwg=761) ng/mL Urine Cocaine Screen (Cutoff= 300) ng/mL U Marijuana (THC) Screen (Cutoff = 50) ng/mL Ethyl Alcohol (0-10) mg/dL 01/16/17 Range/Units 15:16 WBC (4.3-11.1) K/mcL RBC (3.82-4.97) M/mcL Hgb (11.5-15.4) g/dL Hct (35.3-44.9) % MCV (83.0-100.0) fL MCH (28.0-33.3) pg MCHC (31.6-35.5) g/dL RDW (11.5-14.5) % Plt Count (140-400) K/mcL MPV (9.4-12.4) fL Immature Gran % (0-4) % Seg Neutrophils % % Lymphocytes % % Monocytes % % Eosinophils % % Basophils % % Neutrophils # (1.6-8.9) K/mcL Lymphocytes # (0.6-4.6) K/mcL Monocytes # (0.0-1.3) K/mcL Eosinophils # (0.0-0.6) K/mcL Basophils # (0.0-0.2) K/mcL PT (9.4-12.1) Seconds INR APTT (26.0-36.0) Seconds Sodium (136-145) mEq/L Potassium (3.5-4.5) mEq/L Chloride (98-109) mEq/L Carbon Dioxide (19-29) mEq/L BUN (7-20) mg/dL Creatinine (0.57-1.11) mg/dL Est GFR ( Amer) (> 60) Est GFR (Non-Af Amer) (> 60) BUN/Creatinine Ratio (6-26) Glucose (70-99) mg/dL Calculated Osmolality (280-300) Lactic Acid (0.5-2.2) mmol/L Calcium (8.6-10.8) mg/dL Total Bilirubin (0.2-1.2) mg/dL Direct Bilirubin (0.0-0.5) mg/dL Indirect Bilirubin (0.0-1.2) mg/dL AST (5-34) Units/L ALT (0-55) Units/L Alkaline Phosphatase (38-126) Units/L Troponin I (0-0.03) ng/mL Serum Total Protein (6.0-8.3) g/dL Albumin (3.5-5.0) g/dL Globulin (2.4-3.5) g/dL Albumin/Globulin Ratio (1.1-2.2) Urine Color (Yellow) Urine Clarity (Clear) Urine pH (5.0-8.0) pH Units Ur Specific [place] (1.010-1.025) Urine Protein (Neg-Trace) mg/dL Urine Glucose (UA) (Normal) mg/dL Urine Ketones (Negative) mg/dL Urine Blood (Negative) Urine Nitrite (Negative) Urine Bilirubin (Negative) Urine Urobilinogen (Normal) mg/dL Ur Leukocyte Esterase (Negative) Urine Microscopic RBC (0-3) per hpf Urine Microscopic WBC (0-3) per hpf Ur Squamous Epith Cells (None-Few) per lpf Ur Renal Epithelial Cell (None-Few) per hpf Urine Bacteria (None-Few) per hpf Ur Culture Indicated? (NO) Urine Opiates Screen Negative (Ajyzdz=772) ng/mL Ur Barbiturates Screen Negative (Ybduoa=430) ng/mL Ur Phencyclidine Scrn Negative (Cutoff=25) ng/mL Ur Amphetamines Screen Negative (Lfnvwx=3240) ng/mL U Benzodiazepines Scrn Negative (Hosfvw=406) ng/mL Urine Cocaine Screen Negative (Cutoff= 300) ng/mL U Marijuana (THC) Screen Negative (Cutoff = 50) ng/mL Ethyl Alcohol (0-10) mg/dL - Radiology Data Radiology results reviewed: Yes I reviewed the patient's radiology results. Chest X-Ray 01/16/17 14:45 IMPRESSION: Near-resolution of previous parenchymal opacities since 11/30/2016, likely reflecting previous edema or pneumonia. Persisting focal opacity the right base, residual inflammation versus neoplasm. Repeat characterization by CT chest is recommended. D/ / Kareem Tejada MD / Kareem Tejada MD Interpreting Provider: Kareem Tejada MD Head CT 01/16/17 14:53 IMPRESSION: 1. No acute intracranial abnormality. 2. Mild chronic white matter microvascular ischemic changes. 3. Remote lacunar infarcts in the left joseph and right basal ganglia. D/ / Guido Andersen MD / Guido Andersen MD Interpreting Provider: Guido Andersen MD Chest X-Ray 01/16/17 14:45 IMPRESSION: Near-resolution of previous parenchymal opacities since 11/30/2016, likely reflecting previous edema or pneumonia. Persisting focal opacity the right base, residual inflammation versus neoplasm. Repeat characterization by CT chest is recommended. D/ / Kareem Tejada MD / Kareem Tejada MD Interpreting Provider: Kareem Tejada MD Head CT 01/16/17 14:53 IMPRESSION: 1. No acute intracranial abnormality. 2. Mild chronic white matter microvascular ischemic changes. 3. Remote lacunar infarcts in the left joseph and right basal ganglia. D/ / Guido Andersen MD / Guido Andersen MD Interpreting Provider: Guido Andersen MD Chest CT 01/16/17 16:12 IMPRESSION: Multifocal airspace disease, with a nodular component, increased in the left lower lobe compared to 11/30/2016 There has been near complete resolution of the right-sided pleural effusion. There is decreased body wall anasarca Slight decrease in size of mediastinal nodes D/ / Martin Jiménez MD / Martin Jiménez MD Interpreting Provider: Martin Jiménez MD - EKG Data EKG attestation: Yes I reviewed and interpreted this EKG. EKG shows normal: sinus rhythm Rate: normal Rhythm: NSR Interpretation: no acute changes TPA Checklist - LKW: 3-4.5 hrs Add. Contraindications Patient/family understanding: The patient/family members have been counseled and understood the risk, benefit , and alternatives of treatment. Critical Care Time Critical Care Time: Yes Total Critical Care Time: 30 Attestation: The high probability of a clinically significant, sudden or life threatening deterioration of the [cardiovascular] system(s) required my full and direct attention, intervention and personal management. The aggregate critical care time was [30] minutes. This time is in addition to time spent performing reported procedures but includes the following: [x] Data Review and interpretation [x] Patient assessment and monitoring of vital signs [x] Documentation [x] Medication orders and management
[2017-01-16 15:10] LABS: Basophils # 0.1 K/mcL (0.0-0.2); Basophils % 0.6 %; Eosinophils # 0.1 K/mcL (0.0-0.6); Eosinophils % 0.4 %; Hemoglobin 9.8 g/dL (11.5-15.4); Immature Granulocytes % 0.4 % (0-4); Lymphocytes # 2.4 K/mcL (0.6-4.6); Mean Corpuscular HGB Conc 31.6 g/dL (31.6-35.5); Mean Corpuscular Volume 98.1 fL (83.0-100.0); Mean Platelet Volume 9.2 fL (9.4-12.4); Monocytes % 6.5 %; Neutrophils # 12.3 K/mcL (1.6-8.9); Platelet Count 474 K/mcL (140-400); Red Blood Count 3.16 M/mcL (3.82-4.97); Red Cell Distribution Width 15.4 % (11.5-14.5); Segmented Neutrophils % 77.1 %
[2017-01-16 15:16] LABS: INR 1.3; Prothrombin Time 13.7 Seconds (9.4-12.1)
[2017-01-16 15:19] LABS: Activated Partial Thrombo Time 25.1 Seconds (26.0-36.0); Alanine Aminotransferase 12 Units/L (0-55); Albumin 2.5 g/dL (3.5-5.0); Albumin/Globulin Ratio 0.5 (1.1-2.2); Alkaline Phosphatase 119 Units/L (38-126); Aspartate Amino Transferase 41 Units/L (5-34); BUN/Creatinine Ratio 27 (6-26); Bilirubin,Direct 0.2 mg/dL (0.0-0.5); Bilirubin,Indirect 0.1 mg/dL (0.0-1.2); Bilirubin,Total 0.3 mg/dL (0.2-1.2); Blood Urea Nitrogen 55 mg/dL (7-20); Calcium 10.3 mg/dL (8.6-10.8); Carbon Dioxide 32 mEq/L (19-29); Chloride 97 mEq/L (98-109); Globulin 5.1 g/dL (2.4-3.5); Glucose 261 mg/dL (70-99); Osmolality,Calculated 312 (280-300); Potassium 4.2 mEq/L (3.5-4.5); Sodium 139 mEq/L (136-145); Total Protein 7.6 g/dL (6.0-8.3); eGFR For African Americans 29 (> 60); eGFR For Non-African Americans 24 (> 60)
[2017-01-16 15:21] LABS: Ethanol < 10 mg/dL (0-10)
[2017-01-16 15:28] LABS: Bilirubin,Urine Negative (Negative); Blood,Urine Large (Negative); Clarity,Urine Turbid (Clear); Color,Urine Dark Yellow (Yellow); Glucose,Urine (UA) Normal (Normal); Ketones,Urine Trace mg/dL (Negative); Leukocyte Esterase,Urine Large (Negative); Nitrite,Urine Negative (Negative); Protein,Urine >=300 mg/dL (Neg-Trace); Specific Gravity,Urine 1.018 (1.010-1.025); Urobilinogen,Urine Normal (Normal)
[2017-01-16 15:31] LABS: Amphetamine Screen,Urine Negative ng/mL (Cutoff=1000); Barbiturate Screen,Urine Negative ng/mL (Cutoff=200); Benzodiazepines Screen,Urine Negative ng/mL (Cutoff=200); Cannabinoid Screen,Urine Negative ng/mL (Cutoff = 50); Cocaine Screen,Urine Negative ng/mL (Cutoff= 300); Opiate Screen,Urine Negative ng/mL (Cutoff=300); Phencyclidine Screen,Urine Negative ng/mL (Cutoff=25)
[2017-01-16] MEDS ORDERED: Vancomycin 1,000 MG in D5% in Water 250 ML IVPB ONE (15:44)
[2017-01-16] MEDS ORDERED: Piperacillin/Tazobactam 3.375 GM in D5% in Water (Mini-Bag+) 100 ML IVPB ONE (15:44)
[2017-01-16 15:50] LABS: RBC,Urine Present per hpf (0-3); Squamous Epithelial Cell,Urine Present per lpf (None-Few); WBC,Urine TNTC per hpf (0-3)
[2017-01-16 15:51] LABS: Bacteria,Urine Present per hpf (None-Few); Renal Epithelial Cells,Urine Present per hpf (None-Few)
[2017-01-16] MEDS ORDERED: Polyethylene Glycol 3350 255 GM POWDER PO PRN (23:41)
--- NOTE | 2017-01-16 23:52 | Internal Med History&Physical ---
Date of Encounter: 01/16/17 Time of Encounter: 23:47 Assessment and Plan (1) Urinary tract infection Current visit: Yes Status: Acute Prior cultures gruel enterococcus and ESBL. Accordingly will start the patient on zyvox and meropenem. I will do Zyvox instead to avoid nephrotoxic effects of vancomycin. await culture and sensitivities Qualifiers: Qualified Code(s): N39.0 - Urinary tract infection, site not specified (2) HCAP (healthcare-associated pneumonia) Current visit: Yes Status: Acute current antibiotics include Zyvox and meropenem (3) NSTEMI (non-ST elevated myocardial infarction) Current visit: Yes Status: Acute Likely nondistended type I due to close of coronary artery disease. This will be managed conservatively with aspirin beta blockers. Cardiology service notified from the emergency room and given recent bleed with hemoptysis and acute blood loss anemia anticoagulation was deferred (4) Toxic metabolic encephalopathy Current visit: Yes Status: Acute Due to underlying infectious etiology. Improving (5) CKD stage 4 due to type 2 diabetes mellitus Current visit: Yes Status: Acute Stable. Internal Medicine - H&P: HPI Chief complaint: AMS History of present illness: Ms. Dsouza is a 71 year old female with multiple medical problems presents from long-term care with confusion and decreased responsiveness. For the past day or so patient was noted to be less responsive than usual. She was noted to have fevers and cloudy urine. She has prior urinary tract infections with organisms including ESBl and enterococcus. She is unable to provide any history. Her troponin is 12. Recent hospitalization patient had a hemoglobin of 6 and hemoptysis cardiology service were contacted and recommended holding off anticoagulation therapy. During my interview patient is more alerts oriented to self, but still lethargic. No further history could be obtained. Past Med Surg Social Fam HX - Past Medical History Medical history: arthritis, asthma, CHF, COPD, coronary artery disease, CVA, diabetes, GERD, hyperlipidemia, hypertension, myocardial infarction, osteoporosis, renal disease, thyroid disease Psychiatric history: anxiety, depression - Past Surgical History Surgical History: non-contributory, other - Social History Smoking Status: Never smoker Smokeless Tobacco Status: No Alcohol use: none Drug use: none - Family History Father Living Status: Hx Family Cancer: Yes Mother Living Status: Hx Family Cardiac Disorders: No Hx Family Respiratory Disorders: No Hx Family Cancer: Yes Hx Family GI Disorders: No Hx Family Endocrine Disorder: No Hx Family Neuromuscular Disorders: No Hx Family Neurologic Disorders: No Hx Family HEENT Disorders: No Hx Family Autoimmune Disorders: No Internal Medicine - H&P: Meds Cholecalciferol (Vitamin D3) [Vitamin D3] 50,000 unit PO QWEEK 05/30/16 [History ] Gabapentin [Neurontin] 300 mg PO BID 05/30/16 [History] Insulin ASPART [NovoLOG] 1 - 5 unit SQ ACHS 05/30/16 [History] Isosorbide MONOnitrate (24 HR) [Imdur] 30 mg PO DAILY 05/30/16 [History] cloNIDine HCl [Clonidine HCl] 0.2 mg PO BID #60 tab 06/04/16 [Rx] Aspirin 81 mg PO DAILY 07/10/16 [History] Insulin DETEMIR [Levemir] 25 unit SQ HS 07/10/16 [History] Insulin DETEMIR [Levemir] 50 unit SQ QAM 07/10/16 [History] Acetaminophen [Tylenol] 650 mg PO Q6HR PRN #0 tablet 07/20/16 [Rx] Ipratropium/Albuterol Neb [Duoneb] 3 ml IH [id number] inhsol 07/20/16 [Rx] Atorvastatin Calcium [Lipitor] 80 mg PO DAILY 07/31/16 [History] Budesonide/Formoterol 160/4.5 [Symbicort 160/4.5] 2 puff IH BID 07/31/16 [ History] Clopidogrel [Plavix] 75 mg PO DAILY 07/31/16 [History] Levothyroxine [Synthroid] 25 mcg PO DAILY 07/31/16 [History] Loperamide [Imodium] 2 mg PO Q4HR PRN 07/31/16 [History] Pantoprazole Sodium [Protonix] 40 mg PO DAILY 07/31/16 [History] Saline Nasal [place] [[place] Nasal [place]] 2 spray NS TID 07/31/16 [History] Tiotropium [Spiriva] 18 mcg IH DAILY 07/31/16 [History] Metoprolol Succinate 25 mg PO DAILY #30 tab.er.24h 08/12/16 [Rx] Furosemide [Lasix] 20 mg PO QPM 10/07/16 [History] Multivitamin [One Daily Multivitamin] 1 tab PO DAILY 10/07/16 [History] clonazePAM [Klonopin] 1 mg PO TID PRN 3 Days 12/05/16 [Rx] Docusate [Colace] 100 mg PO BID 01/16/17 [History] Furosemide [Lasix] 40 mg PO DAILY 01/16/17 [History] Polyethylene Glycol 3350 [MiraLAX Powder Bulk 17.9 Oz] 17 gm ORAL RINSE DAILY PRN 01/16/17 [History] Allergies No Known Allergies Allergy (Verified 07/24/16 16:19) All Systems PM: A 10-system review of systems was performed and is negative for pertinent findings except as documented above in the HPI. Review of systems: 10 point review systems is negative except for HPI. - Constitutional Vitals: Temp Pulse Resp BP Pulse Ox 97.6 F 66 18 144/67 98 01/16/17 19:47 01/16/17 19:47 01/16/17 19:47 01/16/17 19:47 01/16/17 19:47 Exam: Gen.: patient is alert oriented times 3 cardiac: normal S1 S2 no additional sounds or murmurs chest: no active wheezing or bronchial breathing abdomen soft nontender nondistended normal bowel sounds lower extremity no swelling. Neuro: no new focal deficits Internal Med - H&P Results - Labs CBC & Chem 7: 01/16/17 14:28 01/16/17 14:28
[2017-01-17] MEDS: Insulin LISPRO 300 UNITS/3 ML VIAL SQ SCH ×5 (01:00→18:56)
[2017-01-17] MEDS: Meropenem 500 MG in 0.9 % Sodium Chloride Mini Bag 100 ML IVPB SCH ×3 (01:00→16:00)
[2017-01-17] MEDS: Ipratropium/Albuterol Neb 3 ML IH SCH ×4 (04:09→21:38)
[2017-01-17] MEDS: Levothyroxine 25 MCG TABLET PO SCH (06:11)
[2017-01-17 06:43] LABS: Basophils # 0.1 K/mcL (0.0-0.2); Basophils % 0.6 %; Eosinophils # 0.4 K/mcL (0.0-0.6); Eosinophils % 2.8 %; Hematocrit 31.3 % (35.3-44.9); Hemoglobin 9.9 g/dL (11.5-15.4); Immature Granulocytes % 0.3 % (0-4); Lymphocytes # 1.3 K/mcL (0.6-4.6); Lymphocytes % 9.3 %; Mean Corpuscular HGB Conc 31.6 g/dL (31.6-35.5); Mean Corpuscular Hemoglobin 31.2 pg (28.0-33.3); Mean Corpuscular Volume 98.7 fL (83.0-100.0); Mean Platelet Volume 9.2 fL (9.4-12.4); Monocytes # 0.9 K/mcL (0.0-1.3); Monocytes % 6.4 %; Neutrophils # 11.5 K/mcL (1.6-8.9); Platelet Count 438 K/mcL (140-400); Red Blood Count 3.17 M/mcL (3.82-4.97); Red Cell Distribution Width 15.6 % (11.5-14.5); Segmented Neutrophils % 80.6 %
[2017-01-17 07:08] LABS: Calcium 10.4 mg/dL (8.6-10.8); Potassium 4.1 mEq/L (3.5-4.5)
[2017-01-17] MEDS: Pantoprazole 40 MG VIAL IVP SCH (07:57)
[2017-01-17] MEDS: Aspirin 81 MG TAB.CHEW PO SCH (07:58)
[2017-01-17] MEDS: Furosemide 40 MG TABLET PO SCH (07:58)
--- NOTE | 2017-01-17 08:35 | Cardiology Consult Note ---
Date of Encounter: 01/17/17 Time of Encounter: 09:00 Assessment and Plan (1) Toxic metabolic encephalopathy Current Visit: Yes Status: Acute Per Cardiology: Management per primary service. Appears to be primary reason for admission. Appears to be slightly improving. (2) NSTEMI (non-ST elevated myocardial infarction) Current Visit: Yes Status: Acute Per Cardiology: Patient with multiple hospitalizations with non-STEMI being medically managed. Peak troponin October 2016 and 0.94 and November 2016 4.09. Patient noted to have elevated troponins dating back to 2013. Presents now with peak troponin 12.42 in setting of pneumonia, UTI, anemia, and acute mental status changes. Upon initial evaluation patient unresponsive. Patient seen by Dr. Jean Claude Gunn and denied any chest pain. Per review of previous cardiology consultations patient has not been deemed a good candidate for left heart catheterization due to multiple comorbid conditions including significant anemia requiring multiple blood transfusions. Discussed and reviewed with Dr. Jean Claude Gunn, recommendation to continue with current medical management. Patient is DNR, Comfort Care arrest , DNI. Palliative care consult placed. On asa, plavix, statin, BB, long acting nitrate. Will increase nitrate and beta frank. Continue with medical management as previously outlined in previous consults. Discussed and reviewed with Dr. Jean Claude Gunn, cardiology will sign off, reconsult as needed, follow up as outpatient scheduled. (3) Pneumonia Current Visit: Yes Status: Acute Per Cardiology: Chest CT reveals left lower lobe pneumonia. Management per primary service. Qualifiers: Pneumonia type: due to unspecified organism Laterality: unspecified laterality Lung location: unspecified part of lung Qualified Code(s): J18.9 - Pneumonia, unspecified organism (4) UTI (urinary tract infection) Current Visit: Yes Status: Acute Per Cardiology: Urine cultures with preliminary gram-negative rods. On antibiotics. Management per primary service. Qualifiers: Urinary tract infection type: acute cystitis Hematuria presence: without hematuria Qualified Code(s): N30.00 - Acute cystitis without hematuria (5) Anemia Current Visit: No Status: Chronic Per Cardiology: History of chronic anemia. Has required blood transfusions. Currently stable. Continue to monitor. On ASA and plavix. Qualifiers: Anemia type: iron deficiency Iron deficiency anemia type: other iron deficiency Qualified Code(s): D50.8 - Other iron deficiency anemias (6) Cardiomyopathy Current Visit: Yes Status: Acute Per Cardiology: Most recent echo 11/2016 40-45% EF with previous echo October 2016 55%. On Lasix. Euvolemic on exam. On NC O2 2L. Qualifiers: Cardiomyopathy type: ischemic Qualified Code(s): I25.5 - Ischemic cardiomyopathy (7) Severe protein-calorie malnutrition Current Visit: Yes Status: Acute Per Cardiology: Per discussion walliative care approximate 50 lb weight loss over past few months. (8) CKD stage 4 due to type 2 diabetes mellitus Current Visit: Yes Status: Chronic Per Cardiology: Remains about baseline. Discussion w patient/family: Patient unresponsive with no family at bedside. Thank you for involving us in the care of your patient. Please call with any questions. Palliative care c/s placed. History of Present Illness Consult date: 01/17/17 Requesting physician: Óscar Parmar Consult reason: NSTEMI Chief complaint: Patient does not respond to questioning-- admitted decreased responsiveness History of present illness: Ms. Dsouza is a 71 year old female with relevant past medical history of diabetes mellitus, hypertension, asthma, hyperlipidemia, morbid obesity, sleep apnea, TIA/CVA, and CK D. Patient [place] and has had multiple recent hospitalizations. Currently admitted for fever, UTI, pneumonia, acute mental status changes, and with non-STEMI. Of note previous admissions indicate multiple non-STEMIs being medically managed. 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 Cardiology consult yet again for non-STEMI. Patient seen with no family currently at bedside. Patient briefly open eyes to verbal stimuli, however did not follow verbal commands. Did not answer any questions. Unable to obtain current history. Per review of records and my last office note patient is DNR/Comfort Care arrest/DNI. Past Med Surg Social Fam HX - Past Medical History Source: unable to obtain, old records reviewed Medical history: arthritis, asthma, CHF, COPD, coronary artery disease, CVA, diabetes, GERD, hyperlipidemia, hypertension, myocardial infarction, osteoporosis, renal disease, thyroid disease Psychiatric history: anxiety, depression - Past Surgical History Surgical History: non-contributory, other - Social History Smoking Status: Never smoker Smokeless Tobacco Status: No Alcohol use: none Drug use: none - Family History Father Living Status: Hx Family Cancer: Yes Mother Living Status: Hx Family Cardiac Disorders: No Hx Family Respiratory Disorders: No Hx Family Cancer: Yes Hx Family GI Disorders: No Hx Family Endocrine Disorder: No Hx Family Neuromuscular Disorders: No Hx Family Neurologic Disorders: No Hx Family HEENT Disorders: No Hx Family Autoimmune Disorders: No Medications and Allergies Cholecalciferol (Vitamin D3) [Vitamin D3] 50,000 unit PO QWEEK 05/30/16 [History ] Gabapentin [Neurontin] 300 mg PO BID 05/30/16 [History] Insulin ASPART [NovoLOG] 1 - 5 unit SQ ACHS MDD PER SLIDING SCALE 05/30/16 [ History] Isosorbide MONOnitrate (24 HR) [Imdur] 30 mg PO DAILY 05/30/16 [History] cloNIDine HCl [Clonidine HCl] 0.2 mg PO BID #60 tab 06/04/16 [Rx] Aspirin 81 mg PO DAILY 07/10/16 [History] Insulin DETEMIR [Levemir] 25 unit SQ HS 07/10/16 [History] Insulin DETEMIR [Levemir] 50 unit SQ QAM 07/10/16 [History] Acetaminophen [Tylenol] 650 mg PO Q6HR PRN #0 tablet 07/20/16 [Rx] Ipratropium/Albuterol Neb [Duoneb] 3 ml IH [id number] inhsol 07/20/16 [Rx] Atorvastatin Calcium [Lipitor] 80 mg PO DAILY 07/31/16 [History] Budesonide/Formoterol 160/4.5 [Symbicort 160/4.5] 2 puff IH BID 07/31/16 [ History] Clopidogrel [Plavix] 75 mg PO DAILY 07/31/16 [History] Levothyroxine [Synthroid] 25 mcg PO DAILY 07/31/16 [History] Loperamide [Imodium] 2 mg PO Q4HR PRN 07/31/16 [History] Pantoprazole Sodium [Protonix] 40 mg PO DAILY 07/31/16 [History] Saline Nasal [place] [[place] Nasal [place]] 2 spray NS TID 07/31/16 [History] Tiotropium [Spiriva] 1 cap IH DAILY 07/31/16 [History] Metoprolol Succinate 25 mg PO DAILY #30 tab.er.24h 08/12/16 [Rx] Furosemide [Lasix] 20 mg PO BID 10/07/16 [History] Multivitamin [One Daily Multivitamin] 1 tab PO DAILY 10/07/16 [History] clonazePAM [Klonopin] 1 mg PO TID PRN 3 Days 12/05/16 [Rx] Docusate [Colace] 100 mg PO BID 01/16/17 [History] Polyethylene Glycol 3350 [MiraLAX Powder Bulk 17.9 Oz] 17 gm ORAL RINSE DAILY PRN 01/16/17 [History] Bisacodyl [Dulcolax] 10 mg RC HS PRN 01/17/17 [History] Furosemide [Lasix] 40 mg PO QAM 01/17/17 [History] Nut.tx.gluc.intoler,Lac-Fr,Soy [Glucerna] 1 can PO DAILY 01/17/17 [History] Oxygen 2 l NS AD 01/17/17 [History] Petrolatum,White [Remedy with Phytoplex Z-Guard] 1 appl TP BID 01/17/17 [History ] Tramadol HCl [Ultram] 50 mg PO QID PRN 01/17/17 [History] Allergies No Known Allergies Allergy (Verified 07/24/16 16:19) ROS unobtainable: due to mental status All Systems Review: A 10-system review of systems was performed and is negative for pertinent findings except as documented above in the HPI. - Cardiovascular Cardiovascular: as per HPI Physical Examination Selected Entries 01/17/17 00:42 01/17/17 03:54 01/17/17 04:09 Temperature 98.8 F Pulse Rate 82 Respiratory Rate 20 Blood Pressure 162/67 172/74 O2 Sat by Pulse Oximetry 97 Oxygen Delivery Method Nasal Cannula General: Other (appears acutely ill) HEENT: Atraumatic, Normocephaly, Mucus Membranes Moist Neck: No JVD Cardiac: Reg Rate and Rhythm, Normal S1 and S2, No Murmur Lungs: Normal Breath Sounds, No Wheeze, Rales, Rhonchi Neuro: Other (Briefly opened eyes to verbal, no following commands) Abdomen: Soft, Non-Tender, Other (obese) Skin: No rashes noted on visualized skin Musculoskeletal: No Chest Wall Tenderness Extremities: No Edema, Normal Pulses Results 01/17/17 06:25 01/17/17 06:25 Lab Results Selected Entries 01/17/17 04:09 Oxygen Flow Rate (LPM) 2 Laboratory Tests 10/08/16 12/01/16 12/05/16 11:12 04:03 03:45 WBC Hgb 7.9 L Hct INR Troponin I 0.94 H* 4.09 H* 01/11/17 01/16/17 01/16/17 05:58 14:28 14:28 WBC 16.0 H Hgb 9.1 L Hct 28.7 L 31.0 L INR 1.3 Troponin I 01/16/17 01/17/17 01/17/17 14:28 00:21 06:25 WBC 14.3 H Hgb 9.9 L Hct 31.3 L INR Troponin I 12.26 H* 12.42 H* 01/17/17 06:25 WBC Hgb Hct INR Troponin I 8.74 H* ITS Impressions Chest X-Ray 01/16/17 14:45 IMPRESSION: Near-resolution of previous parenchymal opacities since 11/30/2016, likely reflecting previous edema or pneumonia. Persisting focal opacity the right base, residual inflammation versus neoplasm. Repeat characterization by CT chest is recommended. D/ / Kareem Tejada MD / Kareem Tejada MD Interpreting Provider: Kareem Tejada MD Head CT 01/16/17 14:53 IMPRESSION: 1. No acute intracranial abnormality. 2. Mild chronic white matter microvascular ischemic changes. 3. Remote lacunar infarcts in the left joseph and right basal ganglia. D/ / Guido Andersen MD / Guido Andersen MD Interpreting Provider: Guido Andersen MD Chest CT 01/16/17 16:12 IMPRESSION: Multifocal airspace disease, with a nodular component, increased in the left lower lobe compared to 11/30/2016 There has been near complete resolution of the right-sided pleural effusion. There is decreased body wall anasarca Slight decrease in size of mediastinal nodes D/ / Martin Jiménez MD / Martin Jiménez MD Interpreting Provider: Martin Jiménez MD Intake & Output 01/14/17 01/15/17 01/16/17 01/17/17 23:59 23:59 23:59 23:59 Intake Total 100 / 100 100 / 100 Output Total 300 / 300 250 / 250 Balance -200 / -200 -150 / -150 Weight 98.112 kg 97.749 kg Active Medications Albuterol/Ipratropium (Duoneb) 3 ml IH [id number] BELLE PRN Reason: Protocol Stop: 07/19/17 04:01 Last Admin: 01/17/17 04:09 Dose: 3 ml Aspirin (Aspirin) 81 mg PO DAILY BELLE Stop: 07/19/17 09:01 Last Admin: 01/17/17 07:58 Dose: 81 mg Atorvastatin Calcium (Lipitor) 80 mg PO DAILY BELLE Stop: 07/19/17 09:01 Last Admin: 01/17/17 07:58 Dose: 80 mg Budesonide/Formoterol Fumarate (Symbicort) 2 puff IH BID BELLE PRN Reason: Protocol Stop: 07/19/17 09:01 Clonidine HCl (Clonidine Hcl) 0.3 mg PO BID BELLE Stop: 07/19/17 09:01 Clopidogrel Bisulfate (Plavix) 75 mg PO DAILY BELLE Stop: 07/19/17 09:01 Last Admin: 01/17/17 07:58 Dose: 75 mg Docusate Sodium (Colace) 100 mg PO BID BELLE PRN Reason: Protocol Stop: 07/19/17 09:01 Last Admin: 01/17/17 07:58 Dose: 100 mg Furosemide (Lasix) 40 mg PO DAILY BELLE Stop: 07/19/17 09:01 Last Admin: 01/17/17 07:58 Dose: 40 mg Linezolid/Dextrose (Zyvox Premix 600mg/300ml) 600 mg in 300 mls @ 150 mls/hr IVPB Q12HR BELLE Stop: 07/19/17 06:01 Last Admin: 01/17/17 06:11 Dose: 150 mls/hr Meropenem 500 mg/ Sodium (Chloride) 100 mls @ 200 mls/hr IVPB Q8HR BELLE Stop: 07/19/17 00:01 Last Admin: 01/17/17 07:57 Dose: 200 mls/hr Insulin Human Lispro (Humalog) 0 units SQ Q6HR BELLE PRN Reason: Protocol Stop: 07/19/17 00:01 Last Admin: 01/17/17 06:30 Dose: 2 units Isosorbide Mononitrate (Imdur) 30 mg PO DAILY BELLE Stop: 07/19/17 09:01 Last Admin: 01/17/17 07:58 Dose: 30 mg Levothyroxine Sodium (Synthroid) 25 mcg PO 0630 BELLE Stop: 07/19/17 06:31 Last Admin: 01/17/17 06:11 Dose: 25 mcg Metoprolol Succinate (Toprol Xl) 25 mg PO DAILY BELLE Stop: 07/19/17 09:01 Last Admin: 01/17/17 07:58 Dose: 25 mg Pantoprazole Sodium (Protonix) 40 mg IVP DAILY BELLE Stop: 07/19/17 09:01 Last Admin: 01/17/17 07:57 Dose: 40 mg Polyethylene Glycol (Miralax Bowel Prep) 17 gm PO DAILY PRN PRN Reason: Constipation Stop: 07/18/17 23:42 Tiotropium [place] (Spiriva) 18 mcg IH DAILY BELLE PRN Reason: Protocol Stop: 07/19/17 09:01 - Imaging and Cardiology Chest Xray: report reviewed Echo: report reviewed - EKG Interpretation EKG results cardiology: personally reviewed (Comparable to baseline ECG), normal ECG, sinus rhythm, no diagnostic ischemia, other (Sinus rhythm on telemetry) Consult Discharge Plan - Plan Referrals: NO,PCP [Primary Care Provider] - (PATIENT IS FROM [facility] NO PCP APPOINTMENT NEEDED )
[2017-01-17] MEDS ORDERED: Metoprolol XL (24 HR) Succ 25 MG TAB.ER.24H PO SCH (09:00)
[2017-01-17] MEDS ORDERED: Tiotropium 18 MCG inhalation IH SCH (09:00)
[2017-01-17] MEDS ORDERED: Isosorbide MONOnitrate (24 HR) 30 MG TAB.ER.24H PO SCH (09:00)
[2017-01-17] MEDS ORDERED: cloNIDine HCl 0.1 MG TABLET PO SCH (09:00)
[2017-01-17] MEDS: Budesonide/Formoterol 160/4.5 MDI IH SCH ×2 (10:52→21:38)
--- NOTE | 2017-01-17 11:13 | Internal Med Progress Note ---
Date of Encounter: 01/17/17 Time of Encounter: 11:11 - Assessment and plan (1) HCAP (healthcare-associated pneumonia) Current Visit: Yes Status: Acute Assessment and plan: Chest CT reveals left lower lobe pneumonia. Patient has been started on Zyvox to cover for MRSA and meropenem to cover for strep and Pseudomonas. Patient has CKD stage IV hence vancomycin is not a ideal option. If patient begins to produce sent for culture. (2) NSTEMI (non-ST elevated myocardial infarction) Current Visit: Yes Status: Acute (3) Toxic metabolic encephalopathy Current Visit: Yes Status: Acute Assessment and plan: Improving, patient is alert and oriented 2 at my time of review. Continue to monitor Fall precautions, aspiration precautions, keep nothing by mouth until speech and spell swallow evaluation. (4) UTI (urinary tract infection) Current Visit: Yes Status: Acute Assessment and plan: Urine cultures with preliminary gram-negative rods. Continue current antibiotics and follow urine culture. Qualifiers: Urinary tract infection type: acute cystitis Hematuria presence: without hematuria Qualified Code(s): N30.00 - Acute cystitis without hematuria (5) Elevated troponin Current Visit: Yes Status: Acute Assessment and plan: Wes with an STEMI, and poor candidate for anticoagulation due to prior history of hemoptysis. Cardiology is following patient. Cardiology has recommended medical management for now. Palliative care has been consulted for goals of care and possible hospice placement. their evaluation has been duly noted. Continue aspirin, beta blockers. Statins (6) (HFpEF) heart failure with preserved ejection fraction Current Visit: Yes Status: Chronic Assessment and plan: Since echocardiogram from November 2016 shows systolic dysfunction with ejection fraction 40-45%, moderate left ventricular diastolic dysfunction. Multiple wall motion abnormalities. Patient is currently euvolemic. Avoid fluid overload by minimizing IV infusions. Continue to monitor Continue home medications. (7) COPD (chronic obstructive pulmonary disease) Current Visit: Yes Status: Chronic Assessment and plan: patient with no current exacerbation at time of review. Continue duo nebs when necessary, no indication for steroids at this time. Qualifiers: COPD type: unspecified COPD Qualified Code(s): J44.9 - Chronic obstructive pulmonary disease, unspecified (8) CKD stage 4 due to type 2 diabetes mellitus Current Visit: Yes Status: Chronic Assessment and plan: Creatinine and GFR are stable and at baseline. Continue to avoid nephrotoxins. Continue to monitor chemistry. (9) Morbid (severe) obesity with alveolar hypoventilation Current Visit: Yes Status: Chronic Assessment and plan: Continue oxygen supplements when necessary. (10) Hypertension Current Visit: Yes Status: Chronic Assessment and plan: Medications have been adjusted, continue to monitor Qualifiers: Hypertension type: essential hypertension Qualified Code(s): I10 - Essential (primary) hypertension - Subjective Interval history: 71 F resident of SNF with recurrent admissions PMH of arthritis, asthma, CHF, COPD, coronary artery disease, CVA, diabetes, GERD, hyperlipidemia, hypertension, myocardial infarction, osteoporosis, CKD IV , thyroid disease, anxiety, depression Prior ESBL UTI Admitted and being managed for UTI, HCAP, AMS, NSTEMI with peak troponin of 12 She was sent from SNF for fevers, and being less responsive She has been started on appropriate antibioticc urine culture is growing GNR She is seen and evaluated at bedside, she is awake but lethargic Asking for feeds/a drink Reports "I am feeling better" but she is unable to verbalize why and how she got to the hospital - Constitutional Vitals: Temp Pulse Resp BP Pulse Ox 98.0 F 82 20 160/66 98 01/17/17 07:50 01/17/17 07:50 01/17/17 10:58 01/17/17 07:50 01/17/17 10:58 General appearance: Present: A&O X 2, morbidly obese, pleasant, no acute distress - Head Head exam: Present: atraumatic, normocephalic - Eye Eye exam: Present: PERRL, conjuntiva pink, sclera anicteric Pupils: Present: PERRL - ENT ENT exam: Present: mucous membranes dry - Neck Neck exam general surgery: Present: supple, trachea midline. Absent: lymphadenopathy - Respiratory Respiratory exam: Present: CTAB. Absent: accessory muscle use, rales, rhonchi, wheezes - Cardiovascular Cardiovascular exam: Present: RRR, +S1, +S2. Absent: diastolic murmur, gallop, rubs, systolic murmur - GI/Abdominal GI/Abdominal exam: Present: normal bowel sounds, soft, no peritoneal signs. Absent: distended, tenderness - Extremities Exam Extremities exam: Present: warm, radial pulses palpable and symetrical. Absent : calf tenderness, cyanotic, pedal edema Additional comments: R LE shorter and externally rotated - Neurological Exam Neurological exam: Present: alert, CN II-XII intact, no focal deficits. Absent : oriented X3, pronater drift, facial droop, speech deficit Internal Medicine: Result - Labs CBC & Chem 7: 01/17/17 06:25 01/17/17 06:25 Labs: Short CBC 01/17/17 Range/Units 06:25 WBC 14.3 H (4.3-11.1) K/mcL Hgb 9.9 L (11.5-15.4) g/dL Hct 31.3 L (35.3-44.9) % Plt Count 438 H (140-400) K/mcL Neutrophils # 11.5 H (1.6-8.9) K/mcL BMP 01/17/17 06:25 Sodium 143 Potassium 4.1 Chloride 98 Carbon Dioxide 34 H BUN 57 H Creatinine 2.07 H Glucose 180 H Calcium 10.4 Cardiac Enzymes 01/17/17 Range/Units 06:25 Troponin I 8.74 H* (0-0.03) ng/mL - ABG Interpretation ABG results: PT/INR, D-dimer PT 13.7 Seconds (9.4-12.1) H 01/16/17 14:28 Consult Discharge Plan - Plan Referrals: NO,PCP [Primary Care Provider] - ([facility] NO [facility]POINTMENT NEEDED )
[2017-01-17] MEDS: cloNIDine HCl 0.1 MG TABLET PO SCH ×2 (12:35→20:55)
--- NOTE | 2017-01-17 14:42 | Palliative - Consult Note ---
Date of Encounter: 01/17/17 Time of Encounter: 13:45 - Assessment and Plan (1) Severe protein-calorie malnutrition Current Visit: Yes Status: Acute Assessment and plan: Will ask staff to feed pt as her tremors are making it difficult for her to feed herself. Will order Ensure with meals as well and monitor intake. (2) Debilitated Current Visit: No Status: Chronic (3) Counseling regarding advanced care planning and goals of care Current Visit: Yes Status: Acute Assessment and plan: Patient has advanced directives done and power of industrial relations counselor is on file here as well as state DNR form. Patient is somewhat alert, but drowsy and unable to participate in much discussion. Daughter KOFFI Sheehan contacted via telephone and discussed current clinical condition. Sissy states that she has not been able to spend much time at nursing facility the past month r/t other family issues, and expresses concern that her mother's care has "went downhill", and that they have not been helping her with meals. The pt's aunt is her roommate at [facility] and she tells family that "they have not been caring for her as they were". Sissy states she has been asking for PT, and she doesn't think they are working with her either. We have had discussions before r/t having hospice care, which Sissy states she does not want at this time. States she desires to continue to have her mother transported to hospital for care, antibiotics etc. She does understand that from cardiac perspective, she is not a candidate for invasive procedures and cardiology recommending medical management only. Will order pt to be fed and get supplements on board. D/W Sissy that will continue to re-evaluate her progress daily, and if she does not improve, we may need to re-discuss at some point. Will continue to follow. (4) NSTEMI (non-ST elevated myocardial infarction) Current Visit: Yes Status: Acute (5) Urinary tract infection Current Visit: Yes Status: Acute Qualifiers: Qualified Code(s): N39.0 - Urinary tract infection, site not specified Palliative-CN HPI - Data of Consult Consult date: 01/17/17 Requesting Physician: Aamir Veras MD Primary Care Provider: PCP NO - Consult Narrative History of present illness: Ms. Dsouza is a 71 year old female with a long medical history and frequent hospital admissions, who was admitted with altered mental status. She is a senior living resident of [facility] after a stay at [place] where she had a leg fracture and apparently had been nonambulatory since. Pertinent medical problems include: asthma, CHF, COPD, CAD, CVA, diabetes, [place], renal disease. Known to palliative care team from previous visits. She has had multiple admissions since August when we first met her, including admissions for sepsis and anemia. Cardiology is familiar with pt as well. Last EF 40-45% . Troponins were elevated this admission and they have evaluated patient. She currently has + urine culture with gram negative rods, sensitivity pending. Upon my visit, there is no family present. She is drowsy, but does awaken and answer some "yes/no" questions. Denies any pain or shortness of breath. C/ O weakness. Asking for something to eat and drink. Tremors noted to upper extremities with movement. CC: Aamir Veras MD Past Med Surg Social Fam HX - Past Medical History Medical history: arthritis, asthma, CHF, COPD, coronary artery disease, CVA, diabetes, GERD, hyperlipidemia, hypertension, myocardial infarction, osteoporosis, renal disease, thyroid disease Psychiatric history: anxiety, depression - Past Surgical History Surgical History: non-contributory, other - Social History Smoking Status: Never smoker Smokeless Tobacco Status: No Alcohol use: none Drug use: none - Family History Father Living Status: Hx Family Cancer: Yes Mother Living Status: Hx Family Cardiac Disorders: No Hx Family Respiratory Disorders: No Hx Family Cancer: Yes Hx Family GI Disorders: No Hx Family Endocrine Disorder: No Hx Family Neuromuscular Disorders: No Hx Family Neurologic Disorders: No Hx Family HEENT Disorders: No Hx Family Autoimmune Disorders: No Medications and Allergies Cholecalciferol (Vitamin D3) [Vitamin D3] 50,000 unit PO QWEEK 05/30/16 [History ] Gabapentin [Neurontin] 300 mg PO BID 05/30/16 [History] Insulin ASPART [NovoLOG] 1 - 5 unit SQ ACHS MDD PER SLIDING SCALE 05/30/16 [ History] Isosorbide MONOnitrate (24 HR) [Imdur] 30 mg PO DAILY 05/30/16 [History] cloNIDine HCl [Clonidine HCl] 0.2 mg PO BID #60 tab 06/04/16 [Rx] Aspirin 81 mg PO DAILY 07/10/16 [History] Insulin DETEMIR [Levemir] 25 unit SQ HS 07/10/16 [History] Insulin DETEMIR [Levemir] 50 unit SQ QAM 07/10/16 [History] Acetaminophen [Tylenol] 650 mg PO Q6HR PRN #0 tablet 07/20/16 [Rx] Ipratropium/Albuterol Neb [Duoneb] 3 ml IH [id number] inhsol 07/20/16 [Rx] Atorvastatin Calcium [Lipitor] 80 mg PO DAILY 07/31/16 [History] Budesonide/Formoterol 160/4.5 [Symbicort 160/4.5] 2 puff IH BID 07/31/16 [ History] Clopidogrel [Plavix] 75 mg PO DAILY 07/31/16 [History] Levothyroxine [Synthroid] 25 mcg PO DAILY 07/31/16 [History] Loperamide [Imodium] 2 mg PO Q4HR PRN 07/31/16 [History] Pantoprazole Sodium [Protonix] 40 mg PO DAILY 07/31/16 [History] Saline Nasal [place] [[place] Nasal [place]] 2 spray NS TID 07/31/16 [History] Tiotropium [Spiriva] 1 cap IH DAILY 07/31/16 [History] Metoprolol Succinate 25 mg PO DAILY #30 tab.er.24h 08/12/16 [Rx] Furosemide [Lasix] 20 mg PO BID 10/07/16 [History] Multivitamin [One Daily Multivitamin] 1 tab PO DAILY 10/07/16 [History] clonazePAM [Klonopin] 1 mg PO TID PRN 3 Days 12/05/16 [Rx] Docusate [Colace] 100 mg PO BID 01/16/17 [History] Polyethylene Glycol 3350 [MiraLAX Powder Bulk 17.9 Oz] 17 gm ORAL RINSE DAILY PRN 01/16/17 [History] Bisacodyl [Dulcolax] 10 mg RC HS PRN 01/17/17 [History] Furosemide [Lasix] 40 mg PO QAM 01/17/17 [History] Nut.tx.gluc.intoler,Lac-Fr,Soy [Glucerna] 1 can PO DAILY 01/17/17 [History] Oxygen 2 l NS AD 01/17/17 [History] Petrolatum,White [Remedy with Phytoplex Z-Guard] 1 appl TP BID 01/17/17 [History ] Tramadol HCl [Ultram] 50 mg PO QID PRN 01/17/17 [History] Allergies No Known Allergies Allergy (Verified 07/24/16 16:19) ROS unobtainable: due to mental status Palliative Care-Exam - Constitutional Vitals: Temp Pulse Resp BP Pulse Ox 98.0 F 64 18 147/48 98 01/17/17 11:35 01/17/17 11:35 01/17/17 11:35 01/17/17 11:35 01/17/17 11:35 General appearance: Present: mild distress - Head Head Exam: Present: normal inspection, normocephalic - Respiratory Respiratory exam: Present: decreased breath sounds, CTAB Additional comments: shallow inspiratory effort - Cardiovascular Cardiovascular exam: Present: +S1, +S2 - GI/Abdominal Exam GI/Abdominal exam: Present: normal bowel sounds, soft - Catheter Type: Urethral ([place]) - Extremities Exam Extremities exam: Present: normal capillary refill Additional comments: Right extremity externally rotated. - Neurological Exam Neurological exam: Present: alert Additional comments: Oriented to person and place, needs reoriented to time and situation. - Skin Skin exam: Present: dry, pallor, warm Internal Medicine - CN: Reslt - Labs CBC & Chem 7: 01/17/17 06:25 01/17/17 06:25 Labs: Short CBC 01/17/17 Range/Units 06:25 WBC 14.3 H (4.3-11.1) K/mcL Hgb 9.9 L (11.5-15.4) g/dL Hct 31.3 L (35.3-44.9) % Plt Count 438 H (140-400) K/mcL Neutrophils # 11.5 H (1.6-8.9) K/mcL BMP 01/17/17 06:25 Sodium 143 Potassium 4.1 Chloride 98 Carbon Dioxide 34 H BUN 57 H Creatinine 2.07 H Glucose 180 H Calcium 10.4 Cardiac Enzymes 01/17/17 Range/Units 06:25 Troponin I 8.74 H* (0-0.03) ng/mL - ABG Interpretation ABG results: PT/INR, D-dimer PT 13.7 Seconds (9.4-12.1) H 01/16/17 14:28 Consult Discharge Plan - Plan Referrals: NO,PCP [Primary Care Provider] - (PATIENT IS FROM [facility] NO PCP APPOINTMENT NEEDED ) Palliative Quality Palliative Quality: Screen for Code Status: Yes, Screen for Goals of Care: Yes, Screen for Pain: Yes, If Pain Regimen Started, Initiate Bowel Regimen: NA, Screen for Nausea/Vomitting: Yes Code Status: 01/17/17 08:22 DNR [Resuscitation Status: Active] [RES] Routine Comment: Resuscitation Status: [id number]
--- NOTE | 2017-01-17 14:43 | Electrocardiograph Report ---
[place] [id number] Test Date: 2017-01-16 Pat Name: Violeta Dsouza Department: 105 Room: 2N09 Gender: F Rn Or Lpn: : 1945 Requested By: Koby Farrell Order Number: [id number] Reading MD: Willis Johnson MD Measurements Intervals [place] Rate: 82 P: 13 OK: 267 QRS: -10 QRSD: 87 T: 91 QT: 396 QTc: 435 Interpretive Statements SINUS RHYTHM WITH FIRST DEGREE AV BLOCK LEFT VENTRICULAR HYPERTROPHY Electronically Signed On 01-17-2017 14:41:31 EDT by Willis Johnson MD
[2017-01-17] MEDS ORDERED: traMADol 50 MG TABLET PO STA (20:05)
[2017-01-17] MEDS: clonazePAM 0.5 MG TABLET PO PRN (20:56)
[2017-01-17] MEDS: Insulin DETEMIR 100 UNIT/ML X5UNITS SQ SCH (20:56)
[2017-01-18] MEDS: Insulin LISPRO 300 UNITS/3 ML VIAL SQ SCH ×8 (00:11→17:34)
[2017-01-18] MEDS: Meropenem 500 MG in 0.9 % Sodium Chloride Mini Bag 100 ML IVPB SCH ×2 (00:11→08:29)
[2017-01-18] MEDS: Ipratropium/Albuterol Neb 3 ML IH SCH ×4 (04:20→21:40)
[2017-01-18 04:29] LABS: Basophils # 0.1 K/mcL (0.0-0.2); Basophils % 0.8 %; Eosinophils # 0.8 K/mcL (0.0-0.6); Eosinophils % 7.9 %; Hematocrit 28.3 % (35.3-44.9); Hemoglobin 8.8 g/dL (11.5-15.4); Immature Granulocytes % 0.5 % (0-4); Lymphocytes # 1.6 K/mcL (0.6-4.6); Lymphocytes % 16.3 %; Mean Corpuscular HGB Conc 31.1 g/dL (31.6-35.5); Mean Corpuscular Hemoglobin 30.8 pg (28.0-33.3); Mean Platelet Volume 8.9 fL (9.4-12.4); Monocytes # 0.9 K/mcL (0.0-1.3); Monocytes % 9.6 %; Neutrophils # 6.2 K/mcL (1.6-8.9); Platelet Count 356 K/mcL (140-400); Red Blood Count 2.86 M/mcL (3.82-4.97); Red Cell Distribution Width 14.9 % (11.5-14.5); Segmented Neutrophils % 64.9 %
[2017-01-18 04:41] LABS: Calcium 9.8 mg/dL (8.6-10.8)
[2017-01-18] MEDS: Levothyroxine 25 MCG TABLET PO SCH (05:52)
[2017-01-18] MEDS ORDERED: Dextrose Gel 15 GM PO PRN ×2 (07:34)
[2017-01-18] MEDS ORDERED: *HR* Dextrose 50 % in Water (Syg) 50 ML SYRINGE IVP PRN (07:34)
[2017-01-18] MEDS ORDERED: D5% in Water 1,000 ML IVC PRN (07:34)
[2017-01-18] MEDS: Isosorbide MONOnitrate (24 HR) 30 MG TAB.ER.24H PO SCH (08:30)
[2017-01-18] MEDS: Furosemide 40 MG TABLET PO SCH (08:30)
[2017-01-18] MEDS: cloNIDine HCl 0.1 MG TABLET PO SCH ×2 (08:30→21:09)
[2017-01-18] MEDS: Pantoprazole 40 MG VIAL IVP SCH (08:30)
[2017-01-18] MEDS: Aspirin 81 MG TAB.CHEW PO SCH (08:30)
[2017-01-18] MEDS: Metoprolol XL (24 HR) Succ 25 MG TAB.ER.24H PO SCH (08:31)
[2017-01-18] MEDS: clonazePAM 0.5 MG TABLET PO PRN (08:32)
--- NOTE | 2017-01-18 09:34 | Internal Med Progress Note ---
Date of Encounter: 01/18/17 Time of Encounter: 09:32 - Assessment and plan (1) HCAP (healthcare-associated pneumonia) Current Visit: Yes Status: Acute Assessment and plan: Chest CT reveals left lower lobe pneumonia. Patient has been started on Zyvox to cover for MRSA and meropenem to cover for strep and Pseudomonas. Patient has CKD stage IV hence vancomycin is not a ideal option. If patient begins to produce sputum, will send for culture. Continue current antibiotics Monitor CK (2) NSTEMI (non-ST elevated myocardial infarction) Current Visit: Yes Status: Acute Assessment and plan: Cardiology eval noted and appreciated Not candidate for intervention medical management only (3) Toxic metabolic encephalopathy Current Visit: Yes Status: Acute Assessment and plan: Improving, patient is alert and oriented 3 at my time of review. Continue to monitor Fall precautions, (4) UTI (urinary tract infection) Current Visit: Yes Status: Acute Assessment and plan: Urine cultures with preliminary gram-negative rods. Continue current antibiotics and follow urine culture. Qualifiers: Urinary tract infection type: acute cystitis Hematuria presence: without hematuria Qualified Code(s): N30.00 - Acute cystitis without hematuria (5) Elevated troponin Current Visit: Yes Status: Acute Assessment and plan: Wes with an STEMI, and poor candidate for anticoagulation due to prior history of hemoptysis. Cardiology is following patient. Cardiology has recommended medical management for now. Palliative care has been consulted for goals of care and possible hospice placement. their evaluation has been duly noted. Continue aspirin, beta blockers. Statins (6) (HFpEF) heart failure with preserved ejection fraction Current Visit: Yes Status: Chronic Assessment and plan: Since echocardiogram from November 2016 shows systolic dysfunction with ejection fraction 40-45%, moderate left ventricular diastolic dysfunction. Multiple wall motion abnormalities. Patient is currently euvolemic. Avoid fluid overload by minimizing IV infusions. Continue to monitor Continue home medications. (7) COPD (chronic obstructive pulmonary disease) Current Visit: Yes Status: Chronic Assessment and plan: patient with no current exacerbation at time of review. Continue duo nebs when necessary, no indication for steroids at this time. Qualifiers: COPD type: unspecified COPD Qualified Code(s): J44.9 - Chronic obstructive pulmonary disease, unspecified (8) CKD stage 4 due to type 2 diabetes mellitus Current Visit: Yes Status: Chronic Assessment and plan: Creatinine and GFR are stable and at baseline. Continue to avoid nephrotoxins. Continue to monitor chemistry. (9) Morbid (severe) obesity with alveolar hypoventilation Current Visit: Yes Status: Chronic Assessment and plan: Continue oxygen supplements when necessary. (10) Hypertension Current Visit: Yes Status: Chronic Assessment and plan: Medications have been adjusted, continue to monitor Qualifiers: Hypertension type: essential hypertension Qualified Code(s): I10 - Essential (primary) hypertension - Subjective Interval history: 71 F resident of [facility] with recurrent admissions PMH of arthritis, asthma, CHF, COPD, coronary artery disease, CVA, diabetes, GERD, hyperlipidemia, hypertension, myocardial infarction, osteoporosis, CKD IV , thyroid disease, anxiety, depression Prior ESBL UTI Admitted and being managed for UTI, HCAP, AMS, NSTEMI with peak troponin of 12 She was sent from SNF for fevers, and being less responsive, she did not have any fever since admission She has been started on appropriate antibiotics urine culture is growing GNR, awaiting final result and sensitivity Blood culture is prelimiary negative She is seen and evaluated at bedside, She is much more clinically improved awake, she states she feels stronger She denies CP, SOB, She will like to have more PT. PT/OT is following - Constitutional Vitals: Temp Pulse Resp BP Pulse Ox 97.5 F L 61 16 135/47 100 01/18/17 07:58 01/18/17 07:58 01/18/17 07:58 01/18/17 07:58 01/18/17 07:58 General appearance: Present: A&O X 3, morbidly obese, pleasant, no acute distress - Head Head exam: Present: atraumatic, normocephalic - Eye Eye exam: Present: PERRL, conjuntiva pink, sclera anicteric Pupils: Present: PERRL - Neck Neck exam general surgery: Present: supple, trachea midline. Absent: lymphadenopathy - Respiratory Respiratory exam: Present: CTAB. Absent: accessory muscle use, rales, rhonchi, wheezes - Cardiovascular Cardiovascular exam: Present: RRR, +S1, +S2. Absent: diastolic murmur, gallop, rubs, systolic murmur - GI/Abdominal GI/Abdominal exam: Present: normal bowel sounds, soft, no peritoneal signs. Absent: distended, tenderness - Additional comments: Indwelling clarke draning clear urine, patient reports this is chronic, from SNF - Extremities Exam Extremities exam: Present: warm, radial pulses palpable and symetrical. Absent : calf tenderness, cyanotic, pedal edema Additional comments: R LE shorter and externally rotated - Neurological Exam Neurological exam: Present: alert, CN II-XII intact, oriented X3, no focal deficits. Absent: pronater drift, facial droop, speech deficit - Skin Skin exam: Present: dry, intact Internal Medicine: Result - Labs CBC & Chem 7: 01/18/17 04:14 01/18/17 04:14 Labs: Short CBC 01/18/17 Range/Units 04:14 WBC 9.6 (4.3-11.1) K/mcL Hgb 8.8 L (11.5-15.4) g/dL Hct 28.3 L (35.3-44.9) % Plt Count 356 (140-400) K/mcL Neutrophils # 6.2 (1.6-8.9) K/mcL BMP 01/18/17 04:14 Sodium 139 Potassium 4.0 Chloride 97 L Carbon Dioxide 32 H BUN 56 H Creatinine 1.96 H Glucose 176 H Calcium 9.8 - ABG Interpretation ABG results: PT/INR, D-dimer PT 13.7 Seconds (9.4-12.1) H 01/16/17 14:28 Consult Discharge Plan - Plan Referrals: NO,PCP [Primary Care Provider] - (PATIENT IS FROM [facility] NO PCP APPOINTMENT NEEDED )
--- NOTE | 2017-01-18 09:57 | Palliative Progress Note ---
Date of Encounter: 01/18/17 Time of Encounter: 09:55 - Assessment and plan (1) Severe protein-calorie malnutrition Current Visit: Yes Status: Acute Assessment and plan: Ate well last pm. We discussed her weight loss. States she was not eating well at [facility] lately and only eating "soups". States she is drinking ensure. Monitor. (2) Constipation Current Visit: Yes Status: Acute Assessment and plan: Add back Colace as her regimen prior to admission with Dulcolax suppository PRN. (3) Debilitated Current Visit: No Status: Chronic Assessment and plan: PT/OT has been consulted. (4) Counseling regarding advanced care planning and goals of care Current Visit: Yes Status: Acute Assessment and plan: Patient able to participate in goals of care discussion this am. She understands that she can only be medically managed for heart disease, however, she does still continue to want treated aggressively for infections (pneumonia/ UTI,, etc.). She understands that she is at high risk for repeated infections and hospital re-admissions, but wants to continue this approach. She does not desire hospice care at this time. This is in alignment with what her daughter Sissy TAPIA) stated that was her conversation as well. Will continue to follow clinical course at a distance. (5) NSTEMI (non-ST elevated myocardial infarction) Current Visit: Yes Status: Acute (6) Urinary tract infection Current Visit: Yes Status: Acute - Time Spent With Patient Total time spent is greater than 50% in coordination of care (as documented) at patient's floor/unit and/or counseling patient: - Subjective Interval history: Patient awake and very alert today. Engaging in conversation. States she feels much better and stronger. States breathing well. C/o pain buttock area r /t pressure. Ate 100% of dinner and some breakfast this am. No family present. - Constitutional Vitals: Abnormal lab results RBC 2.86 M/mcL (3.82-4.97) L 01/18/17 04:14 Hgb 8.8 g/dL (11.5-15.4) L 01/18/17 04:14 Hct 28.3 % (35.3-44.9) L 01/18/17 04:14 MCHC 31.1 g/dL (31.6-35.5) L 01/18/17 04:14 RDW 14.9 % (11.5-14.5) H 01/18/17 04:14 MPV 8.9 fL (9.4-12.4) L 01/18/17 04:14 Eosinophils # 0.8 K/mcL (0.0-0.6) H 01/18/17 04:14 PT 13.7 Seconds (9.4-12.1) H 01/16/17 14:28 APTT 25.1 Seconds (26.0-36.0) L 01/16/17 14:28 Chloride 97 mEq/L (98-109) L 01/18/17 04:14 Carbon Dioxide 32 mEq/L (19-29) H 01/18/17 04:14 BUN 56 mg/dL (7-20) H 01/18/17 04:14 Creatinine 1.96 mg/dL (0.57-1.11) H 01/18/17 04:14 Est GFR ( Amer) 31 (> 60) L 01/18/17 04:14 Est GFR (Non-Af Amer) 25 (> 60) L 01/18/17 04:14 BUN/Creatinine Ratio 29 (6-26) H 01/18/17 04:14 Glucose 176 mg/dL (70-99) H 01/18/17 04:14 POC Glucose 235 (58-89) H 01/17/17 23:50 Calculated Osmolality 308 (280-300) H 01/18/17 04:14 AST 41 Units/L (5-34) H 01/16/17 14:28 Troponin I 8.74 ng/mL (0-0.03) H* 01/17/17 06:25 Albumin 2.5 g/dL (3.5-5.0) L 01/16/17 14:28 Globulin 5.1 g/dL (2.4-3.5) H 01/16/17 14:28 Albumin/Globulin Ratio 0.5 (1.1-2.2) L 01/16/17 14:28 Urine Clarity Turbid (Clear) A 01/16/17 15:16 Urine Protein >=300 mg/dL (Neg-Trace) H 01/16/17 15:16 Urine Ketones Trace mg/dL (Negative) H 01/16/17 15:16 Urine Blood Large (Negative) H 01/16/17 15:16 Ur Leukocyte Esterase Large (Negative) H 01/16/17 15:16 Urine Microscopic WBC TNTC per hpf (0-3) H 01/16/17 15:16 Ur Culture Indicated? YES (NO) A 01/16/17 15:16 General appearance: Present: no acute distress - Respiratory Respiratory exam: Present: decreased breath sounds, CTAB - Cardiovascular Cardiovascular exam: Present: +S1, +S2 - GI/Abdominal GI/Abdominal exam: Present: normal bowel sounds, soft - Extremities Exam Additional comments: Rt lower leg externally rotated - Neurological Exam Neurological exam: Present: alert, oriented X3 Additional comments: Oriented to name and place. Follows simple commands. Bilateral tremors noted to upper extremities with movement. - Skin Skin exam: Present: dry, pallor, warm Palliative Quality Palliative Quality: Screen for Code Status: Yes, Screen for Goals of Care: Yes, Screen for Pain: Yes, If Pain Regimen Started, Initiate Bowel Regimen: NA, Screen for Nausea/Vomitting: Yes Code Status: 01/17/17 08:22 DNR [Resuscitation Status: Active] [RES] Routine Comment: Resuscitation Status: [id number] - Labs CBC & Chem 7: 01/18/17 04:14 01/18/17 04:14 Labs: Laboratory Results - last 24 hr 01/17/17 01/17/17 01/17/17 06:24 11:32 18:06 WBC RBC Hgb Hct MCV MCH MCHC RDW Plt Count MPV Immature Gran % Seg Neutrophils % Lymphocytes % Monocytes % Eosinophils % Basophils % Neutrophils # Lymphocytes # Monocytes # Eosinophils # Basophils # Sodium Potassium Chloride Carbon Dioxide BUN Creatinine Est GFR ( Amer) Est GFR (Non-Af Amer) BUN/Creatinine Ratio Glucose POC Glucose 167 H 192 H 268 H Calculated Osmolality Calcium 01/17/17 01/18/17 01/18/17 23:50 04:14 04:14 WBC 9.6 RBC 2.86 L Hgb 8.8 L Hct 28.3 L MCV 99.0 MCH 30.8 MCHC 31.1 L RDW 14.9 H Plt Count 356 MPV 8.9 L Immature Gran % 0.5 Seg Neutrophils % 64.9 Lymphocytes % 16.3 Monocytes % 9.6 Eosinophils % 7.9 Basophils % 0.8 Neutrophils # 6.2 Lymphocytes # 1.6 Monocytes # 0.9 Eosinophils # 0.8 H Basophils # 0.1 Sodium 139 Potassium 4.0 Chloride 97 L Carbon Dioxide 32 H BUN 56 H Creatinine 1.96 H Est GFR ( Amer) 31 L Est GFR (Non-Af Amer) 25 L BUN/Creatinine Ratio 29 H Glucose 176 H POC Glucose 235 H Calculated Osmolality 308 H Calcium 9.8 - ABG Interpretation ABG results: PT/INR, D-dimer PT 13.7 Seconds (9.4-12.1) H 01/16/17 14:28 Consult Discharge Plan - Plan Referrals: NO,PCP [Primary Care Provider] - (PATIENT IS FROM [facility] NO PCP APPOINTMENT NEEDED )
[2017-01-18] MEDS: Budesonide/Formoterol 160/4.5 MDI IH SCH ×2 (10:37→21:41)
[2017-01-18] MEDS: Piperacillin/Tazobactam 3.375 GM in D5% in Water (Mini-Bag+) 100 ML IVPB SCH ×2 (16:00→23:21)
[2017-01-18] MEDS ORDERED: Insulin LISPRO 300 UNITS/3 ML VIAL SQ SCH (21:00)
[2017-01-18] MEDS: Insulin DETEMIR 100 UNIT/ML X5UNITS SQ SCH (21:10)
[2017-01-19] MEDS: Ipratropium/Albuterol Neb 3 ML IH SCH ×2 (03:49→09:01)
[2017-01-19 05:47] LABS: Basophils # 0.1 K/mcL (0.0-0.2); Basophils % 0.7 %; Eosinophils # 0.8 K/mcL (0.0-0.6); Eosinophils % 8.4 %; Hematocrit 28.2 % (35.3-44.9); Hemoglobin 8.9 g/dL (11.5-15.4); Immature Granulocytes % 0.2 % (0-4); Lymphocytes # 1.1 K/mcL (0.6-4.6); Lymphocytes % 12.4 %; Mean Corpuscular HGB Conc 31.6 g/dL (31.6-35.5); Mean Corpuscular Hemoglobin 30.7 pg (28.0-33.3); Mean Corpuscular Volume 97.2 fL (83.0-100.0); Mean Platelet Volume 9.4 fL (9.4-12.4); Monocytes # 0.7 K/mcL (0.0-1.3); Monocytes % 7.4 %; Neutrophils # 6.5 K/mcL (1.6-8.9); Platelet Count 406 K/mcL (140-400); Segmented Neutrophils % 70.9 %
[2017-01-19] MEDS: Levothyroxine 25 MCG TABLET PO SCH (05:53)
[2017-01-19 06:08] LABS: Calcium 9.5 mg/dL (8.6-10.8); Potassium 4.1 mEq/L (3.5-4.5)
[2017-01-19] MEDS: Piperacillin/Tazobactam 3.375 GM in D5% in Water (Mini-Bag+) 100 ML IVPB SCH (07:30)
[2017-01-19] MEDS: Pantoprazole 40 MG VIAL IVP SCH (07:31)
[2017-01-19] MEDS: Isosorbide MONOnitrate (24 HR) 30 MG TAB.ER.24H PO SCH (07:32)
[2017-01-19] MEDS: Metoprolol XL (24 HR) Succ 25 MG TAB.ER.24H PO SCH (07:32)
[2017-01-19] MEDS: Furosemide 40 MG TABLET PO SCH (07:32)
[2017-01-19] MEDS: Aspirin 81 MG TAB.CHEW PO SCH (07:33)
[2017-01-19] MEDS: cloNIDine HCl 0.1 MG TABLET PO SCH (07:33)
[2017-01-19] MEDS: Insulin LISPRO 300 UNITS/3 ML VIAL SQ SCH ×4 (07:34→12:05)
[2017-01-19 08:23] VITALS: BP 156/84
[2017-01-19] MEDS ORDERED: Linezolid 600 MG TABLET PO SCH (09:00)
[2017-01-19] MEDS: Budesonide/Formoterol 160/4.5 MDI IH SCH (09:01)
--- NOTE | 2017-01-19 11:16 | Physician Discharge Referral ---
[facility] Referral Info Transfer To: [facility] Provider in Charge: Rito Provider in Charge after Transfer: PCP Institutional Level of Care: Skilled - Diagnosis (1) HCAP (healthcare-associated pneumonia) Priority: Primary Status: Acute (2) NSTEMI (non-ST elevated myocardial infarction) Priority: Primary Status: Acute (3) Toxic metabolic encephalopathy Priority: Primary Status: Resolved (4) UTI (urinary tract infection) Priority: Primary Status: Acute (5) Elevated troponin Priority: Primary Status: Acute (6) (HFpEF) heart failure with preserved ejection fraction Priority: Secondary Status: Chronic (7) COPD (chronic obstructive pulmonary disease) Priority: Secondary Status: Chronic (8) CKD stage 4 due to type 2 diabetes mellitus Priority: Secondary Status: Chronic (9) Morbid (severe) obesity with alveolar hypoventilation Priority: Secondary Status: Chronic (10) Hypertension Priority: Secondary Status: Chronic Prognosis: Fair Aware of Diagnosis: Patient, Family Aware of Prognosis: Patient, Family - Transfer Medications Prescriptions: Linezolid [Zyvox] 600 mg PO BID #20 tablet Lupycqkyxper-Qsco-Abifnyjh,Iso [Zosyn 3.375 gm/50 ml Galaxy] 3.375 gm IV Q8H # 24 froz.piggy Home Medications: Cholecalciferol (Vitamin D3) [Vitamin D3] 50,000 unit PO QWEEK 05/30/16 [History ] Gabapentin [Neurontin] 300 mg PO BID 05/30/16 [History] Insulin ASPART [NovoLOG] 1 - 5 unit SQ ACHS MDD PER SLIDING SCALE 05/30/16 [ History] Isosorbide MONOnitrate (24 HR) [Imdur] 30 mg PO DAILY 05/30/16 [History] cloNIDine HCl [Clonidine HCl] 0.2 mg PO BID #60 tab 06/04/16 [Rx] Aspirin 81 mg PO DAILY 07/10/16 [History] Insulin DETEMIR [Levemir] 25 unit SQ HS 07/10/16 [History] Insulin DETEMIR [Levemir] 50 unit SQ QAM 07/10/16 [History] Acetaminophen [Tylenol] 650 mg PO Q6HR PRN #0 tablet 07/20/16 [Rx] Ipratropium/Albuterol Neb [Duoneb] 3 ml IH [id number] inhsol 07/20/16 [Rx] Atorvastatin Calcium [Lipitor] 80 mg PO DAILY 07/31/16 [History] Budesonide/Formoterol 160/4.5 [Symbicort 160/4.5] 2 puff IH BID 07/31/16 [ History] Clopidogrel [Plavix] 75 mg PO DAILY 07/31/16 [History] Levothyroxine [Synthroid] 25 mcg PO DAILY 07/31/16 [History] Loperamide [Imodium] 2 mg PO Q4HR PRN 07/31/16 [History] Pantoprazole Sodium [Protonix] 40 mg PO DAILY 07/31/16 [History] Saline Nasal [place] [[place] Nasal [place]] 2 spray NS TID 07/31/16 [History] Tiotropium [Spiriva] 1 cap IH DAILY 07/31/16 [History] Metoprolol Succinate 25 mg PO DAILY #30 tab.er.24h 08/12/16 [Rx] Furosemide [Lasix] 20 mg PO BID 10/07/16 [History] Multivitamin [One Daily Multivitamin] 1 tab PO DAILY 10/07/16 [History] clonazePAM [Klonopin] 1 mg PO TID PRN 3 Days 12/05/16 [Rx] Docusate [Colace] 100 mg PO BID 01/16/17 [History] Polyethylene Glycol 3350 [MiraLAX Powder Bulk 17.9 Oz] 17 gm ORAL RINSE DAILY PRN 01/16/17 [History] Bisacodyl [Dulcolax] 10 mg RC HS PRN 01/17/17 [History] Furosemide [Lasix] 40 mg PO QAM 01/17/17 [History] Nut.tx.gluc.intoler,Lac-Fr,Soy [Glucerna] 1 can PO DAILY 01/17/17 [History] Oxygen 2 l NS AD 01/17/17 [History] Petrolatum,White [Remedy with Phytoplex Z-Guard] 1 appl TP BID 01/17/17 [History ] Tramadol HCl [Ultram] 50 mg PO QID PRN 01/17/17 [History] Linezolid [Zyvox] 600 mg PO BID #20 tablet 01/19/17 [Rx] Kvgwljsracrr-Fari-Iztoejix,Iso [Zosyn 3.375 gm/50 ml Galaxy] 3.375 gm IV Q8H # 24 froz.piggy 01/19/17 [Rx] Allergies/Adverse Reactions: Allergies No Known Allergies Allergy (Verified 07/24/16 16:19) - Respiratory Orders Oxygen / L per min (2L/minute) Smoking Cessation: Smoking cessation has been advised. For more information, call the [place] Tobacco Quit Line at 5-876-XQIE-NOW. - Advance Directives Living Will: Yes Code Status: DNR-Arrest/Don't Intubate - Mobility Orders Bedrest - Rehabiliation Orders Rehab Potential: Fair - Diet Orders No Added Salt (HERNAN), No Concentrated Sweets, Renal, Cardiac CERTIFICATION: I certify that the transfer of the above named patient to an Extended Care Facility is necessary for the continuing treatment of the diagnosis listed. The above information is true and accurate reflection of patient's current condition. Confidential - Redisclosure prohibited without a patient's written consent.
--- NOTE | 2017-01-19 11:17 | Discharge Summary ---
Date of Encounter: 01/19/17 Time of Encounter: 11:16 - Discharge Diagnosis (1) HCAP (healthcare-associated pneumonia) Priority: Primary Status: Acute (2) NSTEMI (non-ST elevated myocardial infarction) Priority: Primary Status: Acute (3) Toxic metabolic encephalopathy Priority: Primary Status: Resolved (4) UTI (urinary tract infection) Priority: Primary Status: Acute Qualifiers: Urinary tract infection type: acute cystitis Hematuria presence: without hematuria Qualified Code(s): N30.00 - Acute cystitis without hematuria (5) Elevated troponin Priority: Primary Status: Acute (6) (HFpEF) heart failure with preserved ejection fraction Priority: Secondary Status: Chronic (7) COPD (chronic obstructive pulmonary disease) Priority: Secondary Status: Chronic Qualifiers: COPD type: unspecified COPD Qualified Code(s): J44.9 - Chronic obstructive pulmonary disease, unspecified (8) CKD stage 4 due to type 2 diabetes mellitus Priority: Secondary Status: Chronic (9) Morbid (severe) obesity with alveolar hypoventilation Priority: Secondary Status: Chronic (10) Hypertension Priority: Secondary Status: Chronic Qualifiers: Hypertension type: essential hypertension Qualified Code(s): I10 - Essential (primary) hypertension (11) Sacral decubitus ulcer, stage II Priority: Secondary Status: Chronic - Discharge Medications Prescriptions: Linezolid [Zyvox] 600 mg PO BID #20 tablet Reyqlfzgjvpn-Qaeq-Izykzeam,Iso [Zosyn 3.375 gm/50 ml Galaxy] 3.375 gm IV Q8H # 24 froz.piggy Home Medications: Cholecalciferol (Vitamin D3) [Vitamin D3] 50,000 unit PO QWEEK 05/30/16 [History ] Gabapentin [Neurontin] 300 mg PO BID 05/30/16 [History] Insulin ASPART [NovoLOG] 1 - 5 unit SQ ACHS MDD PER SLIDING SCALE 05/30/16 [ History] Isosorbide MONOnitrate (24 HR) [Imdur] 30 mg PO DAILY 05/30/16 [History] cloNIDine HCl [Clonidine HCl] 0.2 mg PO BID #60 tab 06/04/16 [Rx] Aspirin 81 mg PO DAILY 07/10/16 [History] Insulin DETEMIR [Levemir] 25 unit SQ HS 07/10/16 [History] Insulin DETEMIR [Levemir] 50 unit SQ QAM 07/10/16 [History] Acetaminophen [Tylenol] 650 mg PO Q6HR PRN #0 tablet 07/20/16 [Rx] Ipratropium/Albuterol Neb [Duoneb] 3 ml IH [id number] inhsol 07/20/16 [Rx] Atorvastatin Calcium [Lipitor] 80 mg PO DAILY 07/31/16 [History] Budesonide/Formoterol 160/4.5 [Symbicort 160/4.5] 2 puff IH BID 07/31/16 [ History] Clopidogrel [Plavix] 75 mg PO DAILY 07/31/16 [History] Levothyroxine [Synthroid] 25 mcg PO DAILY 07/31/16 [History] Loperamide [Imodium] 2 mg PO Q4HR PRN 07/31/16 [History] Pantoprazole Sodium [Protonix] 40 mg PO DAILY 07/31/16 [History] Saline Nasal [place] [[place] Nasal [place]] 2 spray NS TID 07/31/16 [History] Tiotropium [Spiriva] 1 cap IH DAILY 07/31/16 [History] Metoprolol Succinate 25 mg PO DAILY #30 tab.er.24h 08/12/16 [Rx] Furosemide [Lasix] 20 mg PO BID 10/07/16 [History] Multivitamin [One Daily Multivitamin] 1 tab PO DAILY 10/07/16 [History] clonazePAM [Klonopin] 1 mg PO TID PRN 3 Days 12/05/16 [Rx] Docusate [Colace] 100 mg PO BID 01/16/17 [History] Polyethylene Glycol 3350 [MiraLAX Powder Bulk 17.9 Oz] 17 gm ORAL RINSE DAILY PRN 01/16/17 [History] Bisacodyl [Dulcolax] 10 mg RC HS PRN 01/17/17 [History] Furosemide [Lasix] 40 mg PO QAM 01/17/17 [History] Nut.tx.gluc.intoler,Lac-Fr,Soy [Glucerna] 1 can PO DAILY 01/17/17 [History] Oxygen 2 l NS AD 01/17/17 [History] Petrolatum,White [Remedy with Phytoplex Z-Guard] 1 appl TP BID 01/17/17 [History ] Tramadol HCl [Ultram] 50 mg PO QID PRN 01/17/17 [History] Linezolid [Zyvox] 600 mg PO BID #20 tablet 01/19/17 [Rx] Ogrmackzwsfd-Tpuz-Zdqdbshl,Iso [Zosyn 3.375 gm/50 ml Galaxy] 3.375 gm IV Q8H # 24 froz.piggy 01/19/17 [Rx] Allergies/Adverse Reactions: Allergies No Known Allergies Allergy (Verified 07/24/16 16:19) Date of admission: 01/17/17 00:58 Primary care physician: PCP NO Consults: 01/17/17 12:57 Consult to Palliative Care [CONS] Routine Comment: Consulting Provider: Palliative Care Sameera Reason for Consult: multiple medical issues, recurrent NSTEMIs being medically managed, already DNR/DNI/CCA. Please evalaute for long-term care options. Yin Kumar notified. Call Completed: Yes 01/19/17 08:05 Consult to Invasive Line Access Team [CONS] Routine Reason for Consult: intermediate card tender antibiotics Line Type: EPIV Discharging clinician: Aamir Veras Anticipated date of discharge: 01/19/17 - Patient Status Disposition: Transfer SNF Condition: Fair Functional capacity at discharge: bed bound Overall status at discharge: patient is progressing back to baseline - Discharge Instructions Instructions: Urinary Tract Infection in Women (DC) Follow Up With: Jean Claude Gunn MD [Partnered Physician] - (Office will call you for F/U appt) - Diet and Activity Activity: resume usual activities as tolerated Diet: diabetic diet, low fat, low cholesterol, low salt diet Interval History: See below Hospital course: 71 F resident of SNF with recurrent admissions PMH of arthritis, asthma, CHF, COPD, coronary artery disease, CVA, diabetes, GERD, hyperlipidemia, hypertension, myocardial infarction, osteoporosis, CKD IV , thyroid disease, anxiety, depression, mostly bed bound with sacral decubiti, indwelling Mccarty catheter, Prior ESBL UTI She was admitted and managed for UTI, HCAP, AMS, NSTEMI with peak troponin of 12 She was BIBEMS from SNF due to altered mental status and fever, patient was somnolent at time of arrival. She was afebrile on presentation and throughout admission , presented with leukocytosis with left shift, and evidence of UTI on her UA. Chest CT revealed left lower lobe pneumonia. She also presented with an elevated troponin , peaked at 12. Her sedating medications were held and she was started on empiric antibiotics pending urine and blood culture report. She was started on Linezolid and Meropenem for MRSA/Strep/Pseudomonas coverage respectively. Echocardiogram from November 2016 shows systolic dysfunction with ejection fraction 40-45%, moderate left ventricular diastolic dysfunction. Multiple wall motion abnormalities. Patient continued to make significant clinical improvement daily with resolution of her altered mental status and she was able to tolerate orally. Leukocytosis resolved, HB remained stable. Cardiology was consulted for her possible NSTEMI, patient is not a good candidate for intervention, she was managed medically Palliative care was again consulted for goals of care, patient is DNR/DNI Her urine culture grew serratia liquefaciens, her blood culture was negative Based on sensitivity report, she will be discharged on Zosyn IV, and Zyvox po for 8 more days to complete 10 days of antibiotic therapy Her other chronic medical conditions as well as kidney function remained stable Stable for transfer back to SNF - Time Spent with Patient Total time spent providing and/or coordinating discharge services: Greater than 30 minutes (45 minutes spent on chart review, patient encounter, medication reconciliation, prescription , documentation) - Constitutional Vitals: Temp Pulse Resp BP Pulse Ox 98.1 F 89 16 156/84 96 01/19/17 08:22 01/19/17 08:22 01/19/17 09:03 01/19/17 08:22 01/19/17 09:03 General appearance: Present: A&O X 3, morbidly obese, pleasant, no acute distress - Head Head exam: Present: atraumatic, normocephalic - Eye Eye exam: Present: PERRL, conjuntiva pink, sclera anicteric Pupils: Present: PERRL - Neck Neck exam general surgery: Present: supple, trachea midline. Absent: lymphadenopathy - Respiratory Respiratory exam: Present: CTAB. Absent: accessory muscle use, rales, rhonchi, wheezes - Cardiovascular Cardiovascular exam: Present: RRR, +S1, +S2. Absent: diastolic murmur, gallop, rubs, systolic murmur - GI/Abdominal GI/Abdominal exam: Present: normal bowel sounds, soft, no peritoneal signs. Absent: distended, tenderness - Extremities Exam Extremities exam: Present: warm, radial pulses palpable and symetrical. Absent : calf tenderness, cyanotic, pedal edema Additional comments: R LE shorter and externally rotated - Neurological Exam Neurological exam: Present: alert, CN II-XII intact, oriented X3, no focal deficits. Absent: pronater drift, facial droop, speech deficit - Skin Skin exam: Present: dry
[2017-01-19] MEDS ORDERED: traMADol 50 MG TABLET PO ONE (12:05)
[2017-01-20 16:14] LABS: CK-BB (CK isoenzymes) 0 % (0-0); CK-MB (CK isoenzymes) 0 % (0-4); CK-MM (CK-isoenzymes) 100 % (96-100)
[2017-01-20 16:14] LABS: CK-BB (CK isoenzymes) 0 % (0-0); CK-MB (CK isoenzymes) 0 % (0-4); CK-MM (CK-isoenzymes) 100 % (96-100)
[2017-01-21 09:16] LABS: CK Total (Ck Isoenzymes) 119 U/L (20-180)
[2017-01-21 09:18] LABS: CK Total (Ck Isoenzymes) 190 U/L (20-180)
== END 2017-01-19 15:08 | DRG 280 ==
LOC: EMEROO 14:26 → 2NNU 14:26
PROVIDERS: ADMIT Nurse Practitioner Family; ATTEND Internal Medicine

== ENCOUNTER 2017-03-24 09:26 | Inpatient (IN) ==
[2017-03-24] MEDS ORDERED: 0.9 % Sodium Chloride 1,000 ML IVC ONE (09:30)
--- NOTE | 2017-03-24 09:36 | Emergency Department Note ---
Disposition Clinical Impression: Healthcare-associated pneumonia, Elevated troponin Leukocytosis Qualifiers: Leukocytosis type: unspecified Qualified Code(s): D72.829 - Elevated white blood cell count, unspecified UTI (urinary tract infection) Qualifiers: Urinary tract infection type: site unspecified Hematuria presence: with hematuria Qualified Code(s): N39.0 - Urinary tract infection, site not specified Disposition: Admitted As Inpatient Condition: Fair Referrals: Salazar Oates MD [Primary Care Provider] - Altered Mental Status HPI - General Chief Complaint: ED Fever Stated Complaint: Fever, AMS Time Seen by Provider: 03/24/17 09:30 Source: patient, EMS Mode of arrival: EMS Limitations: altered mental status Nursing Notes Reviewed: Yes Vital Signs Reviewed: Yes - History of Present Illness HPI Narrative: 72-year-old female history of CHF, COPD, diabetes, hypothyroidism, hyperlipidemia who presents to the ER with a chief complaint of altered mental status and fever. EMS reports her caregivers at her nursing facility reported that she was decreased responsiveness this morning and altered. They state that she gets UTIs frequently. She was also found to have a low-grade temp of 100.8 there. Patient sent in for evaluation. She is alert and oriented 3 but does answer questions slowly and sometimes not at all. She reports that she recently broke her right leg. She states she has had a cough recently. She denies chest pain, nausea, vomiting, abdominal pain. No other complaints. complaint: altered mental status Onset (ago): day(s) Timing confirmed by: caregiver Pain Severity: none Context: history of similar presentation Associated symptoms: Denies: chest pain - Related Data Home Medications Medication Instructions Recorded Confirmed Cholecalciferol (Vitamin D3) 50,000 unit PO QWEEK 05/30/16 01/17/17 [Vitamin D3] Gabapentin [Neurontin] 300 mg PO BID 05/30/16 01/17/17 Insulin ASPART [NovoLOG] 1 - 5 unit SQ ACHS MDD PER SLIDING 05/30/16 01/17/17 SCALE Isosorbide MONOnitrate (24 HR) 30 mg PO DAILY 05/30/16 01/17/17 [Imdur] Aspirin 81 mg PO DAILY 07/10/16 01/17/17 Insulin DETEMIR [Levemir] 25 unit SQ HS 07/10/16 01/17/17 Insulin DETEMIR [Levemir] 50 unit SQ QAM 07/10/16 01/17/17 Atorvastatin Calcium [Lipitor] 80 mg PO DAILY 07/31/16 01/17/17 Budesonide/Formoterol 160/4.5 2 puff IH BID 07/31/16 01/17/17 [Symbicort 160/4.5] Clopidogrel [Plavix] 75 mg PO DAILY 07/31/16 01/17/17 Levothyroxine [Synthroid] 25 mcg PO DAILY 07/31/16 01/17/17 Loperamide [Imodium] 2 mg PO Q4HR PRN 07/31/16 01/17/17 Pantoprazole Sodium [Protonix] 40 mg PO DAILY 07/31/16 01/17/17 Saline Nasal [place] [[place] Nasal 2 spray NS TID 07/31/16 01/17/17 [place]] Tiotropium [Spiriva] 1 cap IH DAILY 07/31/16 01/17/17 Furosemide [Lasix] 20 mg PO BID 10/07/16 01/17/17 Multivitamin [One Daily 1 tab PO DAILY 10/07/16 01/17/17 Multivitamin] Docusate [Colace] 100 mg PO BID 01/16/17 01/17/17 Polyethylene Glycol 3350 [MiraLAX 17 gm ORAL RINSE DAILY PRN 01/16/17 01/17/17 Powder Bulk 17.9 Oz] Bisacodyl [Dulcolax] 10 mg RC HS PRN 01/17/17 01/17/17 Furosemide [Lasix] 40 mg PO QAM 01/17/17 01/17/17 Nut.tx.gluc.intoler,Lac-Fr,Soy 1 can PO DAILY 01/17/17 01/17/17 [Glucerna] Oxygen 2 l NS AD 01/17/17 01/17/17 Petrolatum,White [Remedy with 1 appl TP BID 01/17/17 01/17/17 Phytoplex Z-Guard] Tramadol HCl [Ultram] 50 mg PO QID PRN 01/17/17 01/17/17 Previous Rx's Medication Instructions Recorded cloNIDine HCl [Clonidine HCl] 0.2 mg PO BID #60 tab 06/04/16 Acetaminophen [Tylenol] 650 mg PO Q6HR PRN #0 tablet 07/20/16 Ipratropium/Albuterol Neb [Duoneb] 3 ml IH [id number] inhsol 07/20/16 Metoprolol Succinate 25 mg PO DAILY #30 tab.er.24h 08/12/16 clonazePAM [Klonopin] 1 mg PO TID PRN 3 Days 12/05/16 Linezolid [Zyvox] 600 mg PO BID #20 tablet 01/19/17 Cnvpuqscjrct-Tkvr-Qnxxrnpu,Iso 3.375 gm IV Q8H #24 froz.piggy 01/19/17 [Zosyn 3.375 gm/50 ml Galaxy] Allergies Allergy/AdvReac Type Severity Reaction Status Date / Time No Known Allergies Allergy Verified 07/24/16 16:19 All systems ED: reviewed and negative except as stated. Constitutional: Reports: fever, weakness Cardiovascular: Denies: chest pain Respiratory: Reports: cough. Denies: dyspnea Gastrointestinal: Denies: abdominal pain, nausea, vomiting, diarrhea Genitourinary: Denies: dysuria Past Medical History - Past Medical History Attestation: Yes The following information was validated with the patient. Source: patient Medical history: Reports: arthritis, asthma, CHF, COPD, coronary artery disease , CVA, diabetes, GERD, hyperlipidemia, hypertension, myocardial infarction, osteoporosis, renal disease, thyroid disease Surgical history: Reports: non-contributory, other Psychiatric history: Reports: anxiety, depression UNIVERSITY LIBRARIAN history: Reports: no UNIVERSITY LIBRARIAN history - Social History Smoking Status: Never smoker Smokeless Tobacco Status: No Alcohol use: Reports: none Drug use: Reports: none Physical Exam - General Limitations: no limitations General appearance: alert, in no apparent distress - Head Head exam: atraumatic, normocephalic, normal inspection - Eye Eye exam: Present: normal appearance, EOMI - ENT ENT exam: normal exam - Neck Neck exam: Present: normal inspection, full ROM - Chest Chest inspection: Present: normal inspection, symmetric chest wall rise - Respiratory Respiratory exam: Present: normal lung sounds bilaterally. Absent: respiratory distress, wheezes, accessory muscle use - Cardiovascular Cardiovascular exam: Present: regular rate, normal rhythm, normal heart sounds - Abdominal Exam Abdominal exam: Present: soft, Non-Tender. Absent: tenderness, distention, rigidity - Extremities Exam Extremities exam: Present: normal inspection, full ROM - Expanded Upper Extremity Exam Shoulder exam: Present: normal inspection, full ROM Arm exam: Present: normal inspection, full ROM Elbow exam: Present: normal inspection, full ROM Forearm/Wrist exam: Present: normal inspection, full ROM Hand exam: Present: normal inspection, full ROM - Expanded Lower Extremity Exam Hip/Pelvis exam: Present: normal inspection, full ROM Upper leg exam: Present: normal inspection. Absent: full ROM (Tenderness to palpation and decreased range of motion of the right lower extremity.) Knee exam: Present: normal inspection, full ROM Lower leg exam: Present: normal inspection, full ROM Ankle exam: Present: normal inspection, full ROM Foot/toe exam: Present: normal inspection, full ROM - Neurological Exam Neurological exam: Present: alert, oriented X3, other (GCS 15. Moves all extremities. Nonfocal neurologic exam.). Absent: motor sensory deficit - Psychiatric Psychiatric exam: Present: normal affect, normal mood - Skin Skin exam: Present: warm, dry, intact, normal color Course Course Narrative: Patient seen and examined. Vital signs reviewed. We will do an altered mental status workup including CT scan of the head, EKG, chest x-ray, labs and urinalysis. Patient will get 1 L of IV fluids and reassess. Vital Signs Temperature 99.4 F 03/24/17 09:28 Pulse Rate 89 03/24/17 09:28 Respiratory Rate 18 03/24/17 09:28 Blood Pressure 152/55 03/24/17 09:28 O2 Sat by Pulse Oximetry 99 03/24/17 09:28 Temperature 99.4 F 03/24/17 09:28 Pulse Rate 78 03/24/17 11:19 Respiratory Rate 16 03/24/17 11:19 Blood Pressure 171/54 03/24/17 11:19 O2 Sat by Pulse Oximetry 98 03/24/17 11:19 Oxygen Delivery Oxygen Delivery Nasal Cannula Altered Mental Status - MDM Narrative Medical decision making narrative: 72-year-old female presents to the ER due to fever and altered mental status. Febrile at 100.8 at the nursing facility. Reports decreased responsiveness. Has a history of recurrent UTIs. Here she is alert and oriented 3. Her chest x-ray was read by radiology as interstitial edema however we favor infiltrate. She does state the nursing facilities we will treat her for healthcare associated pneumonia. She has had a cough during this time and thought she was developing pneumonia. Her troponin is elevated at 0.12 in the setting of renal disease and she is currently chest pain-free. Her urinalysis does demonstrate a UTI as well. Patient will be covered with vancomycin, Zosyn and Levaquin for healthcare associated pneumonia. Admitted to the hospitalist service. - Lab Data Lab results reviewed: Yes I reviewed the patient's lab results. Result diagrams: 03/24/17 10:10 03/24/17 10:10 Lab Results 03/24/17 03/24/17 03/24/17 Range/Units 10:05 10:10 10:10 WBC 24.2 H (4.3-11.1) K/mcL RBC 3.47 L (3.82-4.97) M/mcL Hgb 10.6 L (11.5-15.4) g/dL Hct 33.8 L (35.3-44.9) % MCV 97.4 (83.0-100.0) fL MCH 30.5 (28.0-33.3) pg MCHC 31.4 L (31.6-35.5) g/dL RDW 13.6 (11.5-14.5) % Plt Count 478 H (140-400) K/mcL MPV 9.0 L (9.4-12.4) fL Immature Gran % 0.6 (0-4) % Seg Neutrophils % 80.7 % Lymphocytes % 11.2 % Monocytes % 6.9 % Eosinophils % 0.2 % Basophils % 0.4 % Neutrophils # 19.5 H (1.6-8.9) K/mcL Lymphocytes # 2.7 (0.6-4.6) K/mcL Monocytes # 1.7 H (0.0-1.3) K/mcL Eosinophils # 0.0 (0.0-0.6) K/mcL Basophils # 0.1 (0.0-0.2) K/mcL PT 13.8 H (9.4-12.1) Seconds INR 1.3 Sodium (136-145) mEq/L Potassium (3.5-4.5) mEq/L Chloride (98-109) mEq/L Carbon Dioxide (19-29) mEq/L BUN (7-20) mg/dL Creatinine (0.57-1.11) mg/dL Est GFR ( Amer) (> 60) Est GFR (Non-Af Amer) (> 60) BUN/Creatinine Ratio (6-26) Glucose (70-99) mg/dL Calculated Osmolality (280-300) Lactic Acid 1.4 (0.5-2.2) mmol/L Calcium (8.6-10.8) mg/dL Total Bilirubin (0.2-1.2) mg/dL Direct Bilirubin (0.0-0.5) mg/dL Indirect Bilirubin (0.0-1.2) mg/dL AST (5-34) Units/L ALT (0-55) Units/L Alkaline Phosphatase (38-126) Units/L Troponin I (0-0.03) ng/mL Serum Total Protein (6.0-8.3) g/dL Albumin (3.5-5.0) g/dL Globulin (2.4-3.5) g/dL Albumin/Globulin Ratio (1.1-2.2) Urine Color (Yellow) Urine Clarity (Clear) Urine pH (5.0-8.0) pH Units Ur Specific [place] (1.010-1.025) Urine Protein (Neg-Trace) mg/dL Urine Glucose (UA) (Normal) mg/dL Urine Ketones (Negative) mg/dL Urine Blood (Negative) Urine Nitrite (Negative) Urine Bilirubin (Negative) Urine Urobilinogen (Normal) mg/dL Ur Leukocyte Esterase (Negative) Urine Microscopic RBC (0-3) per hpf Urine Microscopic WBC (0-3) per hpf Ur Squamous Epith Cells (None-Few) per lpf Urine Bacteria (None-Few) per hpf Hyaline Casts (None-Few) per lpf Urine Yeast (None Seen) per hpf Ur Culture Indicated? (NO) 03/24/17 03/24/17 03/24/17 Range/Units 10:10 10:10 10:30 WBC (4.3-11.1) K/mcL RBC (3.82-4.97) M/mcL Hgb (11.5-15.4) g/dL Hct (35.3-44.9) % MCV (83.0-100.0) fL MCH (28.0-33.3) pg MCHC (31.6-35.5) g/dL RDW (11.5-14.5) % Plt Count (140-400) K/mcL MPV (9.4-12.4) fL Immature Gran % (0-4) % Seg Neutrophils % % Lymphocytes % % Monocytes % % Eosinophils % % Basophils % % Neutrophils # (1.6-8.9) K/mcL Lymphocytes # (0.6-4.6) K/mcL Monocytes # (0.0-1.3) K/mcL Eosinophils # (0.0-0.6) K/mcL Basophils # (0.0-0.2) K/mcL PT (9.4-12.1) Seconds INR Sodium 139 (136-145) mEq/L Potassium 3.5 (3.5-4.5) mEq/L Chloride 99 (98-109) mEq/L Carbon Dioxide 29 (19-29) mEq/L BUN 55 H (7-20) mg/dL Creatinine 1.83 H (0.57-1.11) mg/dL Est GFR ( Amer) 33 L (> 60) Est GFR (Non-Af Amer) 27 L (> 60) BUN/Creatinine Ratio 30 H (6-26) Glucose 168 H (70-99) mg/dL Calculated Osmolality 307 H (280-300) Lactic Acid (0.5-2.2) mmol/L Calcium 11.0 H (8.6-10.8) mg/dL Total Bilirubin 0.4 (0.2-1.2) mg/dL Direct Bilirubin 0.3 (0.0-0.5) mg/dL Indirect Bilirubin 0.1 (0.0-1.2) mg/dL AST 16 (5-34) Units/L ALT 13 (0-55) Units/L Alkaline Phosphatase 143 H (38-126) Units/L Troponin I 0.12 H* (0-0.03) ng/mL Serum Total Protein 7.9 (6.0-8.3) g/dL Albumin 2.3 L (3.5-5.0) g/dL Globulin 5.6 H (2.4-3.5) g/dL Albumin/Globulin Ratio 0.4 L (1.1-2.2) Urine Color Yellow (Yellow) Urine Clarity Turbid A (Clear) Urine pH 6.0 (5.0-8.0) pH Units Ur Specific [place] 1.020 (1.010-1.025) Urine Protein >=300 H (Neg-Trace) mg/dL Urine Glucose (UA) Normal (Normal) mg/dL Urine Ketones Negative (Negative) mg/dL Urine Blood Small H (Negative) Urine Nitrite Positive A (Negative) Urine Bilirubin Negative (Negative) Urine Urobilinogen Normal (Normal) mg/dL Ur Leukocyte Esterase Large H (Negative) Urine Microscopic RBC 5-15 H (0-3) per hpf Urine Microscopic WBC TNTC H (0-3) per hpf Ur Squamous Epith Cells Many H (None-Few) per lpf Urine Bacteria Many H (None-Few) per hpf Hyaline Casts None Seen (None-Few) per lpf Urine Yeast Few H (None Seen) per hpf Ur Culture Indicated? YES A (NO) - Radiology Data Radiology results reviewed: Yes I reviewed the patient's radiology results. Chest X-Ray 03/24/17 09:30 IMPRESSION: Mild interstitial edema. D/ / Bill Ferraro MD / Bill Ferraro MD Interpreting Provider: Bill Ferraro MD Head CT 03/24/17 09:30 IMPRESSION: No acute intracranial process identified. D/ / Bill Ferraro MD / Bill Ferraro MD Interpreting Provider: Bill Ferraro MD - EKG Data EKG attestation: Yes I reviewed and interpreted this EKG. EKG results narrative: EKG demonstrates sinus rhythm with a first-degree AV block with a rate of 87 bpm. Left axis deviation. Prolonged [place] interval of 291. Other intervals normal. Nonspecific ST-T wave changes in the lateral and inferior leads unchanged from previous EKG. No ST elevations or depressions. No acute ischemic findings. No significant changes from previous EKG dated 01/16/17. TPA Checklist - LKW: 3-4.5 hrs Add. Warnings/Precautions Patient/family understanding: The patient/family members have been counseled and understood the risk, benefit , and alternatives of treatment. S.B.A.Joe Hyman Situation: Demographics, MOA Background: Presenting Complaint, Relevant PMH, Meds, & Allergies Assessment: Vital Signs, Course and respsone to treatment, Exam Concerns, Patient/Family Expectation, Pertinant Lab Results, Outstanding Labs Recommendation: Barrier(s) to disposition, Recommendation based on pending studies, treatments, or consults S.B.A.R. Report Given to: Len
[2017-03-24 10:21] LABS: Basophils # 0.1 K/mcL (0.0-0.2); Basophils % 0.4 %; Eosinophils % 0.2 %; Hematocrit 33.8 % (35.3-44.9); Hemoglobin 10.6 g/dL (11.5-15.4); Immature Granulocytes % 0.6 % (0-4); Lymphocytes # 2.7 K/mcL (0.6-4.6); Lymphocytes % 11.2 %; Mean Corpuscular HGB Conc 31.4 g/dL (31.6-35.5); Mean Corpuscular Hemoglobin 30.5 pg (28.0-33.3); Mean Corpuscular Volume 97.4 fL (83.0-100.0); Monocytes # 1.7 K/mcL (0.0-1.3); Monocytes % 6.9 %; Neutrophils # 19.5 K/mcL (1.6-8.9); Platelet Count 478 K/mcL (140-400); Red Blood Count 3.47 M/mcL (3.82-4.97); Red Cell Distribution Width 13.6 % (11.5-14.5); Segmented Neutrophils % 80.7 %
[2017-03-24 10:24] LABS: INR 1.3; Prothrombin Time 13.8 Seconds (9.4-12.1)
[2017-03-24 10:39] LABS: Bilirubin,Urine Negative (Negative); Blood,Urine Small (Negative); Clarity,Urine Turbid (Clear); Color,Urine Yellow (Yellow); Glucose,Urine (UA) Normal (Normal); Ketones,Urine Negative (Negative); Leukocyte Esterase,Urine Large (Negative); Nitrite,Urine Positive (Negative); Protein,Urine >=300 mg/dL (Neg-Trace); Urobilinogen,Urine Normal (Normal)
[2017-03-24 10:40] LABS: Albumin 2.3 g/dL (3.5-5.0); Albumin/Globulin Ratio 0.4 (1.1-2.2); Bilirubin,Direct 0.3 mg/dL (0.0-0.5); Bilirubin,Indirect 0.1 mg/dL (0.0-1.2); Bilirubin,Total 0.4 mg/dL (0.2-1.2); Globulin 5.6 g/dL (2.4-3.5); Potassium 3.5 mEq/L (3.5-4.5); Total Protein 7.9 g/dL (6.0-8.3)
[2017-03-24 10:42] LABS: Bacteria,Urine Many per hpf (None-Few); Hyaline Casts,Urine None Seen per lpf (None-Few); Squamous Epithelial Cell,Urine Many per lpf (None-Few); WBC,Urine TNTC per hpf (0-3)
[2017-03-24 10:59] LABS: Yeast,Urine Few per hpf (None Seen)
[2017-03-24] MEDS ORDERED: Piperacillin/Tazobactam 3.375 GM in D5% in Water (Mini-Bag+) 100 ML IVPB ONE (11:01)
[2017-03-24] MEDS ORDERED: Vancomycin 1,500 MG in D5% in Water 250 ML IVPB ONE (11:01)
[2017-03-24] MEDS ORDERED: Levofloxacin 750 MG/150 ML 750 MG/150 ML BAG IVPB ONE (11:01)
--- NOTE | 2017-03-24 11:01 | Emergency Department Note ---
START Narrative - START START: I examined this patient and my medical decision-making was reviewed with the Resident Physician. I agree with the documented findings, disposition and treatment plan as described except to the extent set forth below. 72-year-old female presents emergency room for fevers and weakness. Workup here to me shows an evidence of a right-sided pneumonia contrary to the radiology report. Patient has been coughing with a fever. She felt like she was developing a pneumonia. She has a chronic indwelling Mccarty catheter as well. Patient will need to be admitted.
[2017-03-24] MEDS ORDERED: Ondansetron 4 MG/2 ML VIAL IVP PRN (12:38)
[2017-03-24] MEDS ORDERED: Naloxone 0.4 MG/ML INJ IVP PRN (12:38)
[2017-03-24] MEDS ORDERED: Acetaminophen 325 MG TABLET PO PRN (12:38)
[2017-03-24] MEDS ORDERED: *HR* Morphine 2 MG/ML SYRINGE IVP PRN (12:38)
--- NOTE | 2017-03-24 13:16 | Internal Med History&Physical ---
<CristinacorrycarrieJay woods - Last Filed: 03/24/17 14:02> Date of Encounter: 03/24/17 Time of Encounter: 12:15 Assessment and Plan (1) Sepsis Current visit: Yes Status: Acute Patient currently meets SIRS criteria with fever of 100.8 F and WBC of 24.2 and will be treated for urosepsis. SNF reports patient has history of chronic UTIs and initial UA in the ED is indicative for urine culture. Patient's previous UTI in February 2017 was caused by Escherichia coli and was sensitive to Zosyn. HCAP was initially suspected, but one view CXR today shows mediastinal and cardiac contours stable. Bilateral perihilar opacities are present. There is mild peribronchial cuffing. There is no pleural effusion or pneumothorax identified. Impression is mild interstitial edema. Ms. Dsouza is at high risk for worsening infection based on current symptoms, AMS, and history of chronic UTIs. Patient was given IV vancomycin and IV Zosyn in the ED. Will discontinue vancomycin and continue with IV Zosyn 3.375 g every 8. Zosyn dosing discussed and confirmed with pharmacy due to patient's CKD, stage IV with GFR of 27 currently. Follow-up labs ordered. Blood cultures x2 ordered. Urine culture ordered. Patient to be monitored closely for signs of increasing infection and/ or cardiac and respiratory distress. Will use IV fluids judiciously when necessary due to patient's current stage IV CKD and GFR of 27. Qualifiers: Sepsis type: sepsis due to unspecified organism Qualified Code(s): A41.9 - Sepsis, unspecified organism (2) UTI (urinary tract infection) Current visit: Yes Status: Acute Patient presents with acute UTI presently with symptoms of AMS. According to [facility], patient has a history of chronic UTIs. Patient's last UTI was caused by Escherichia coli and was sensitive to Zosyn. Patient received IV vancomycin and Zosyn in the ED. Will discontinue vancomycin and continue with IV Zosyn 3.375 g every 8. Zosyn dosing discussed and confirmed with pharmacy due to patient's CKD, stage IV with GFR of 27 currently. Follow-up labs ordered. Blood cultures x2 ordered. Urine culture ordered. Patient to be monitored closely for signs of increasing infection and/or sepsis. Qualifiers: Urinary tract infection type: site unspecified Hematuria presence: with hematuria Qualified Code(s): N39.0 - Urinary tract infection, site not specified; R31.9 - Hematuria, unspecified (3) Leukocytosis Current visit: Yes Status: Acute Patient presents with acute leukocytosis and WBC of 24.2 related to her current UTI. Patient has a chronic history of UTIs and will be place on IV Zosyn based on previous UTI sensitivity report. Blood cultures x2 ordered. Urine culture ordered. Will monitor patient's WBC, SIRS criteria/sepsis through follow-up labs. Qualifiers: Leukocytosis type: unspecified Qualified Code(s): D72.829 - Elevated white blood cell count, unspecified (4) Elevated troponin Current visit: Yes Status: Acute Patient presents with acute elevated troponin of 0.12 on admission today. Elevated troponin is most likely due to patient's current UTI infection. Patient denies any chest pain symptoms or cardiac issues currently. We will trend troponins 2. (5) HTN (hypertension) Current visit: Yes Status: Chronic Patient presents with history of chronic hypertension. Will monitor patient and vital signs and continue patient's metoprolol. Qualifiers: Hypertension type: essential hypertension Qualified Code(s): I10 - Essential (primary) hypertension (6) HLD (hyperlipidemia) Current visit: Yes Status: Chronic Patient presents with history of chronic hyperlipidemia. Lipid panel ordered. Will continue patient's Lipitor. Qualifiers: Hyperlipidemia type: pure hypercholesterolemia Qualified Code(s): E78.00 - Pure hypercholesterolemia, unspecified; E78.0 - Pure hypercholesterolemia (7) Anemia in chronic kidney disease Current visit: Yes Status: Chronic Patient presents with history of chronic anemia and CKD. Patient's current Hgb is 10.6 and HCT is 33.8, both of which are higher than her previous readings and are approximately at her baseline. Will monitor H/H. Qualifiers: Chronic kidney disease stage: stage 4 (severe) Qualified Code(s): N18.4 - Chronic kidney disease, stage 4 (severe); D63.1 - Anemia in chronic kidney disease (8) Diabetes Current visit: Yes Status: Chronic Patient presents with history of chronic diabetes with insulin dependency. We will hold any anti-hyperglycemic medications and continue patient's insulin with low-dose correction insulin sliding scale and hypoglycemia protocol. A1c ordered. 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 Stair-step pain medication ordered for pain management. Falls/safety precautions. Qualifiers: Laterality: right Qualified Code(s): M79.604 - Pain in right leg (10) Congestive heart failure (CHF) Current visit: Yes Status: Chronic Patient presents with history of chronic congestive heart failure. Patient currently is experiencing mild SOB most likely related to current UTI infection and no pedal edema. Will use IV fluids judiciously. Patient placed on continuous cardiac telemetry. Qualifiers: Congestive heart failure type: diastolic Congestive heart failure chronicity: chronic Qualified Code(s): I50.32 - Chronic diastolic (congestive ) heart failure (11) CAD (coronary artery disease) Current visit: Yes Status: Chronic Patient presents with history of chronic coronary artery disease. Patient placed on continuous cardiac telemetry. Patient's previous echocardiogram was done in November 2016 showed LVEF of 40-45 percent. We will continue patient's aspirin therapy, Plavix, Imdur, metoprolol, and Lipitor. Qualifiers: Coronary Disease-Associated Artery/Lesion type: unspecified vessel or lesion type [place] vs. transplanted heart: [place] heart Associated angina: angina presence unspecified Qualified Code(s): I25.10 - Atherosclerotic heart disease of [place] coronary artery without angina pectoris (12) DVT prophylaxis Current visit: Yes Status: Acute Patient to be placed on DVT prophylaxis due to current admission protocol and bed rest status. Heparin 5,000 units SQ Q8 ordered. Internal Medicine - H&P: HPI Chief complaint: Fever/Altered Mental Status Admitted From: Emergency Dept Plans for Post Hospital Care: Home History of present illness: Ms. Dsouza is a 72 year old female who presents from the ED after being transported from [facility] due to altered mental status this morning with decreased responsiveness temperature [facility] was 100.8 F. Patient appears altered but becomes more lucid with sternal rub and is able to answer questions although slowly. She reports a cough over the past 48 hours but denies ability to provide any sputum. She reports some weakness and pain in her right leg which she states she recently broke. She denies recent illness, chest pain, nausea, vomiting, abdominal pain, diarrhea, lightheadedness, presyncope, or syncope. Patient has a medical history that includes arthritis, asthma, CHF, COPD, CAD, CVA, diabetes with insulin dependency, GERD, HLD, HTN, NV, osteoporosis, CK-MB, and thyroid disease. She reports she was a former smoker quitting 4 years ago but smoking 1 pack per day. SNF reports patient has history of chronic UTIs and initial UA in the ED is indicative for urine culture. HCAP was initially suspected, but one view CXR today shows mediastinal and cardiac contours stable. Bilateral perihilar opacities are present. There is mild peribronchial cuffing. There is no pleural effusion or pneumothorax identified. Impression is mild interstitial edema. Ms. Dsouza is at high risk for worsening infection based on current symptoms, AMS, and history of chronic UTIs and she currently meets SIRS criteria with fever of 100.8 F and WBC of 24.2 and will be treated for urosepsis. Patient to be placed on continuous cardiac telemetry due to AMS and current infection, supplemental O2 with titration if SPO2 less than 92%, continuous SPO2 monitoring ; bedside swallow evaluation and falls/safety precautions due to AMS. Ms. Dsouza the IV vancomycin and IV Zosyn while in the ED. We will continue IV Zosyn for UTI coverage based on patient's previous diagnosis of Escherichia coli on February 12, 2017 with sensitivity to Zosyn. Patient to be monitored closely for signs of increasing infection and/or cardiac or respiratory distress. Time spent with patient greater than 40 minutes. Past Med Surg Social Fam HX - Past Medical History Source: patient Medical history: arthritis, asthma, CHF, COPD, coronary artery disease, CVA, diabetes, GERD, hyperlipidemia, hypertension, myocardial infarction, osteoporosis, renal disease, thyroid disease Psychiatric history: anxiety, depression - Past Surgical History Surgical History: no surgical history - Social History Smoking Status: Former smoker Packs per day: 1 PPD - reports quitting 4 years ago Smokeless Tobacco Status: No Alcohol use: none Drug use: none Current living situation: Assisted Living Activity Level: Independent ambulation Recent Out of Country Travel Within the Last 8 Weeks: No Exposure or Possible Exposure to Illness During Travel: No - Family History Father Living Status: Hx Family Cancer: Yes Mother Living Status: Hx Family Cardiac Disorders: No Hx Family Respiratory Disorders: No Hx Family Cancer: Yes Hx Family GI Disorders: No Hx Family Endocrine Disorder: No Hx Family Neuromuscular Disorders: No Hx Family Neurologic Disorders: No Hx Family HEENT Disorders: No Hx Family Autoimmune Disorders: No Internal Medicine - H&P: Meds Cholecalciferol (Vitamin D3) [Vitamin D3] 50,000 unit PO QWEEK 05/30/16 [History ] Gabapentin [Neurontin] 300 mg PO TID 05/30/16 [History] Insulin ASPART [NovoLOG] 1 - 5 unit SQ ACHS MDD PER SLIDING SCALE 05/30/16 [ History] Isosorbide MONOnitrate (24 HR) [Imdur] 30 mg PO DAILY 05/30/16 [History] cloNIDine HCl [Clonidine HCl] 0.2 mg PO BID #60 tab 06/04/16 [Rx] Aspirin 81 mg PO DAILY 07/10/16 [History] Insulin DETEMIR [Levemir] 25 unit SQ HS 07/10/16 [History] Insulin DETEMIR [Levemir] 50 unit SQ QAM 07/10/16 [History] Acetaminophen [Tylenol] 650 mg PO Q6HR PRN #0 tablet 07/20/16 [Rx] Atorvastatin Calcium [Lipitor] 80 mg PO DAILY 07/31/16 [History] Budesonide/Formoterol 160/4.5 [Symbicort 160/4.5] 2 puff IH BID 07/31/16 [ History] Clopidogrel [Plavix] 75 mg PO DAILY 07/31/16 [History] Levothyroxine [Synthroid] 25 mcg PO DAILY 07/31/16 [History] Loperamide [Imodium] 2 mg PO Q4HR PRN 07/31/16 [History] Pantoprazole Sodium [Protonix] 40 mg PO DAILY 07/31/16 [History] Saline Nasal [place] [[place] Nasal [place]] 2 spray NS TID 07/31/16 [History] Tiotropium [Spiriva] 1 cap IH DAILY 07/31/16 [History] Metoprolol Succinate 25 mg PO DAILY #30 tab.er.24h 08/12/16 [Rx] Furosemide [Lasix] 20 mg PO 1600,199910/07/16 [History] Multivitamin [One Daily Multivitamin] 1 tab PO DAILY 10/07/16 [History] clonazePAM [Klonopin] 1 mg PO TID PRN 3 Days 12/05/16 [Rx] Docusate [Colace] 100 mg PO BID 01/16/17 [History] Polyethylene Glycol 3350 [MiraLAX Powder Bulk 17.9 Oz] 17 gm ORAL RINSE DAILY PRN 01/16/17 [History] Bisacodyl [Dulcolax] 10 mg RC HS PRN 01/17/17 [History] Furosemide [Lasix] 40 mg PO QAM 01/17/17 [History] Oxygen 2 l NS AD 01/17/17 [History] Tramadol HCl [Ultram] 50 mg PO QID PRN 01/17/17 [History] Ipratropium/Albuterol Neb [Duoneb] 3 ml IH Q6H 03/24/17 [History] Loratadine [Claritin] 10 mg PO DAILY 03/24/17 [History] Sulfamethoxazole/Trimeth DS [Bactrim DS] 1 each PO BID 03/24/17 [History] 3 Allergy/AdvReac Type Severity Reaction Status Date / Time No Known Allergies Allergy Verified 03/24/17 13:08 All Systems PM: A 10-system review of systems was performed and is negative for pertinent findings except as documented above in the HPI. - Constitutional Constitutional: as per HPI, fever(s), weakness, no chills, no night sweats - EENT Eyes: no change in vision, no discharge, no pain, no photophobia Ears: no ear discharge, no ear pain, no tinnitus Nose, mouth and throat: no dysphagia, no nasal discharge, no neck pain, no sore throat - Breasts Breasts: as per HPI - Cardiovascular Cardiovascular ROS IM: as per HPI, dyspnea, no chest pain, no diaphoresis, no lightheadedness, no palpitations, no syncope - Respiratory Respiratory: as per HPI, cough, dyspnea - Gastrointestinal Gastrointestinal: no abdominal pain, no diarrhea, no hematemesis, no hematochezia, no melena, no nausea, no vomiting - Genitourinary Genitourinary: no change in urinary stream, no dysuria, no flank pain, no hematuria Menstruation: as per HPI - Musculoskeletal Musculoskeletal ROS IM: as per HPI, other (Right leg pain) - Integumentary Integumentary IM: no rash, no unusual bruising - Neurological Neurological ROS: as per HPI, behavioral changes, confusion, other (AMS) - Psychiatric Psychiatric: as per HPI - Endocrine Endocrine IM: as per HPI - Hematologic/Lymphatic Hematologic/Lymphatic: no easy bruising - Allergic/Immunologic Allergic/Immunologic: as per HPI - Constitutional Vitals: Temp Pulse Resp BP Pulse Ox 99.4 F 81 18 162/64 98 03/24/17 09:28 03/24/17 12:25 03/24/17 12:46 03/24/17 12:46 03/24/17 12:25 General appearance: Present: mild distress, A&O X 3, obese, answers questions appropriately (With several attempts) - Head Head exam: Present: atraumatic, normocephalic - Eye Eye exam: Present: PERRL, conjuntiva pink, sclera anicteric Pupils: Present: PERRL - ENT ENT exam: Present: normal exam, normal external ear exam - Neck Neck exam general surgery: Present: normal inspection, supple, trachea midline. Absent: lymphadenopathy - Respiratory Respiratory exam: Present: accessory muscle use, wheezes - Cardiovascular Cardiovascular exam: Present: RRR, +S1, +S2. Absent: diastolic murmur, gallop, rubs, systolic murmur - GI/Abdominal GI/Abdominal exam: Present: normal bowel sounds, soft, no peritoneal signs. Absent: distended, tenderness - Rectal Rectal exam: Present: deferred - Additional comments: exam deferred. - Extremities Exam Extremities exam: Present: warm, radial pulses palpable and symmetrical. Absent : calf tenderness, cyanotic, pedal edema - Back Exam Back exam: Present: normal inspection - Neurological Exam Neurological exam: Present: altered - Psychiatric Psychiatric exam: Present: flat affect - Skin Skin exam: Present: dry, intact Internal Med - H&P Results - Labs CBC & Chem 7: 03/24/17 10:10 03/24/17 10:10 - EKG Data EKG shows normal: sinus rhythm - EKG Data When compared to previous EKG: there is no significant change Interpretation IM: suggestive of ischemia EKG comments: 03/24/17 13:20 EKG dated 01/16/17 shows sinus rhythm with first-degree AV block and left ventricular hypertrophy. EKG dated 03/24/17 shows sinus rhythm with first-degree AV block, left ventricular hypertrophy and ST-T changes, possible septal myocardial infarction of indeterminate age. - Diagnostic Studies Chest x-ray Additional comments: Impressions Chest X-Ray 03/24/17 09:30 IMPRESSION: Mild interstitial edema. D/ / Bill Ferraro MD / Bill Ferraro MD Interpreting Provider: Bill Ferraro MD CT scan - head Additional comments: Impressions Head CT 03/24/17 09:30 IMPRESSION: No acute intracranial process identified. D/ / Bill Ferraro MD / Bill Ferraro MD Interpreting Provider: Bill Ferraro MD <Frederick Harrington - Last Filed: 03/24/17 15:30> Date of Encounter: 03/24/17 Internal Medicine - H&P: HPI History of present illness: Ms. Dsouza is a 72 year old female All Systems PM: A 10-system review of systems was performed and is negative for pertinent findings except as documented above in the HPI. - Constitutional Vitals: Temp Pulse Resp BP Pulse Ox 99.4 F 81 18 162/64 98 03/24/17 09:28 03/24/17 12:25 03/24/17 12:46 03/24/17 12:46 03/24/17 12:25 Internal Med - H&P Results - Labs CBC & Chem 7: 03/24/17 10:10 03/24/17 10:10 - Attending Attestation I have seen and examined pt. I have discussed with [employer]NAGER Mr Mesa regarding the management plan. Agree with documentation. Pt admitted as AMS. With fever and high WBC. Pt is on chronic [place] and was admitted several times for UTI. This time UA positive. Consider UTI and urosepsis. Previous sensitivity reviewed. Shows ESBL sensitive to zosyn. Will cont zosyn and follow sepsis protocol.
[2017-03-24] MEDS ORDERED: D5% in Water 1,000 ML IVC PRN (15:10)
[2017-03-24] MEDS ORDERED: *HR* Dextrose 50 % in Water (Syg) 50 ML SYRINGE IVP PRN (15:10)
[2017-03-24] MEDS ORDERED: Dextrose Gel 15 GM PO PRN ×2 (15:10)
[2017-03-24] MEDS: *HR* Heparin 5,000 UNIT/ML VIAL SQ SCH ×2 (15:17→21:42)
[2017-03-24] MEDS: Pantoprazole 40 MG VIAL IVP SCH (15:17)
[2017-03-24] MEDS: *HR* HYDROcodone/Acet 5/325 mg TABLET PO PRN (15:23)
[2017-03-24] MEDS: Ipratropium/Albuterol Neb 3 ML IH SCH ×2 (15:52→20:10)
[2017-03-24] MEDS: Insulin LISPRO 300 UNITS/3 ML VIAL SQ SCH ×2 (16:55→21:45)
[2017-03-24] MEDS: Piperacillin/Tazobactam 3.375 GM in D5% in Water (Mini-Bag+) 100 ML IVPB SCH (16:55)
[2017-03-24 21:08] LABS: Ionized Calcium 1.29 mmol/L (1.15-1.35)
[2017-03-24 21:16] LABS: Phosphorous 4.3 mg/dL (2.3-4.7)
[2017-03-24] MEDS: Furosemide 20 MG TABLET PO SCH (21:42)
[2017-03-24] MEDS: Gabapentin 300 MG CAPSULE PO SCH (21:42)
[2017-03-24] MEDS: cloNIDine HCl 0.1 MG TABLET PO SCH (21:42)
[2017-03-25] MEDS: Piperacillin/Tazobactam 3.375 GM in D5% in Water (Mini-Bag+) 100 ML IVPB SCH ×3 (00:03→23:00)
[2017-03-25] MEDS: Ipratropium/Albuterol Neb 3 ML IH SCH ×6 (00:07→20:31)
--- NOTE | 2017-03-25 03:19 | Event Note ---
Date of Encounter: 03/25/17 Time of Encounter: 03:14 I was asked by the patient's nurse to review telemetry strips that showed episodes of ventricular tachycardia. I have reviewed several of these strips which appeared to have wide-complex tachycardia around 300 bpm. On closer inspection this wide-complex rhythm is followed by normal sinus rhythm with poor, wavy baseline. I can march out the QRS complexes at the same regular intervals from the normal sinus rhythm throughout the tracing that looks like ventricular tachycardia. In conclusion this is not truly V. tach but most likely artifact due to the patient's tremors. Plan: I will check troponin and electrolytes early and will continue with rn cardiac rehab. We will follow up closely. Consider cardiology consult for further workup.
[2017-03-25 03:47] LABS: Basophils # 0.1 K/mcL (0.0-0.2); Basophils % 0.6 %; Eosinophils # 0.3 K/mcL (0.0-0.6); Eosinophils % 1.7 %; Hemoglobin 9.9 g/dL (11.5-15.4); Immature Granulocytes % 0.4 % (0-4); Lymphocytes # 2.4 K/mcL (0.6-4.6); Lymphocytes % 16.1 %; Mean Corpuscular HGB Conc 30.9 g/dL (31.6-35.5); Mean Corpuscular Hemoglobin 30.5 pg (28.0-33.3); Mean Corpuscular Volume 98.5 fL (83.0-100.0); Monocytes # 1.3 K/mcL (0.0-1.3); Monocytes % 8.5 %; Neutrophils # 11.1 K/mcL (1.6-8.9); Platelet Count 453 K/mcL (140-400); Red Blood Count 3.25 M/mcL (3.82-4.97); Red Cell Distribution Width 13.6 % (11.5-14.5); Segmented Neutrophils % 72.7 %
[2017-03-25 03:55] LABS: INR 1.3; Prothrombin Time 14.3 Seconds (9.4-12.1)
[2017-03-25 03:58] LABS: Activated Partial Thrombo Time 32.2 Seconds (26.0-36.0)
[2017-03-25 04:07] LABS: Hemoglobin A1C 6.7 %
[2017-03-25 04:09] LABS: Calcium 10.7 mg/dL (8.6-10.8); Chol/HDL Ratio 5.1 (0-4.9); Magnesium 2.2 mg/dL (1.6-2.6); Potassium 3.8 mEq/L (3.5-4.5)
[2017-03-25] MEDS ORDERED: 0.9 % Sodium Chloride 250 ML IVC ONE (04:11)
[2017-03-25] MEDS: *HR* Heparin 5,000 UNIT/ML VIAL SQ SCH ×3 (05:11→22:59)
[2017-03-25] MEDS: Levothyroxine 25 MCG TABLET PO SCH (05:11)
[2017-03-25] MEDS: Insulin LISPRO 300 UNITS/3 ML VIAL SQ SCH ×4 (08:01→20:03)
[2017-03-25] MEDS ORDERED: Tiotropium 18 MCG inhalation IH SCH (09:00)
[2017-03-25] MEDS: Aspirin 81 MG TAB.CHEW PO SCH (09:03)
[2017-03-25] MEDS: Metoprolol XL (24 HR) Succ 25 MG TAB.ER.24H PO SCH (09:03)
[2017-03-25] MEDS: cloNIDine HCl 0.1 MG TABLET PO SCH ×2 (09:03→20:02)
[2017-03-25] MEDS: Furosemide 40 MG TABLET PO SCH (09:03)
[2017-03-25] MEDS: Loratadine 10 MG TABLET PO SCH (09:03)
[2017-03-25] MEDS: Multivit/Ca/Min/Fe/FA 1 TAB TABLET PO SCH (09:03)
[2017-03-25] MEDS: Gabapentin 300 MG CAPSULE PO SCH (09:03)
[2017-03-25] MEDS: Isosorbide MONOnitrate (24 HR) 30 MG TAB.ER.24H PO SCH (09:03)
[2017-03-25] MEDS: Pantoprazole 40 MG VIAL IVP SCH (09:04)
[2017-03-25] MEDS: *HR* HYDROcodone/Acet 5/325 mg TABLET PO PRN ×2 (09:05→16:35)
[2017-03-25] MEDS: Budesonide/Formoterol 160/4.5 MDI IH SCH ×2 (09:53→20:31)
[2017-03-25] MEDS: clonazePAM 1 MG TABLET PO PRN (11:56)
--- NOTE | 2017-03-25 14:45 | Internal Med Progress Note ---
Date of Encounter: 03/25/17 Time of Encounter: 09:40 - Assessment and plan (1) Sepsis Current Visit: No Status: Acute Assessment and plan: Sepsis present on admission - secondary to UTI, likely due to gram-negative bacilli - with acute kidney injury and initial acute encephalopathy Continue IV Zosyn, Vancomycin given in ED Cultures - negative Chest x-ray - mild interstitial edema CT of the head - no acute intracranial process WBC - 15.2 Lactic acid - 1.5 UA - large leukocyte esterase and positive nitrite Continue to monitor closely, repeat labs in a.m. Qualifiers: Sepsis type: sepsis due to unspecified organism Qualified Code(s): A41.9 - Sepsis, unspecified organism (2) PRADEEP (acute kidney injury) Current Visit: No Status: Acute Assessment and plan: Acute kidney injury on chronic kidney disease stage 4, with oliguria - likely secondary to sepsis Continuing the antibiotics, small fluid boluses, watch for fluid overload due to chronic systolic CHF monitor closely, Repeat labs in a.m., nephrology consult if needed (3) UTI (urinary tract infection) Current Visit: No Status: Acute Assessment and plan: UTI present on admission - probably due to chronic indwelling Mccarty catheter continue IV Zosyn, Cultures - pending Previous cultures sensitive to Zosyn Qualifiers: Urinary tract infection type: site unspecified Hematuria presence: without hematuria Qualified Code(s): N39.0 - Urinary tract infection, site not specified (4) CHF (congestive heart failure) Current Visit: No Status: Chronic Assessment and plan: Mild Acute exacerbation of chronic combined systolic and diastolic CHF LVEF 40- 45% Continue Lasix, Toprol XL, aspirin Cardiac telemetry, strict I's and O's, daily weight, watch for fluid overload Troponin - 0.10 Echocardiogram (12/01/2016) - LVEF 40-45%, global LV hypokinesis, moderate LV diastolic dysfunction, normal RV size and function BN peptide - pending Qualifiers: Congestive heart failure type: diastolic Congestive heart failure chronicity: chronic Qualified Code(s): I50.32 - Chronic diastolic (congestive ) heart failure (5) Elevated troponin Current Visit: Yes Status: Acute Assessment and plan: Chronically elevated troponin - no anginal symptoms at this time - unlikely to be ACS History of chronic CAD - continue ASA, Plavix, Atorvastatin Peak troponin - 0.14, now trending down EKG - sinus rhythm with first-degree AV block, left axis deviation, no acute ST- T changes (6) COPD (chronic obstructive pulmonary disease) Current Visit: No Status: Chronic Assessment and plan: Mild acute COPD exacerbation Continue DuoNeb breathing treatment, Symbicort Qualifiers: COPD type: chronic bronchitis Chronic bronchitis type: mucopurulent Qualified Code(s): J41.1 - Mucopurulent chronic bronchitis (7) Sacral decubitus ulcer, stage II Current Visit: No Status: Chronic Assessment and plan: Chronic stage II sacral decubitus ulcer - continue wound care (8) Diabetes mellitus Current Visit: No Status: Chronic Assessment and plan: Diabetes mellitus type 2, insulin-dependent, hyperglycemia Continue insulin sliding scale, glucose checks, restart home dose of basal insulin Qualifiers: Diabetes mellitus type: type 2 Diabetes mellitus complication status: with kidney complications Diabetes mellitus complication detail: with chronic kidney disease Diabetes mellitus skilled nursing insulin use: with skilled nursing use Chronic kidney disease stage: stage 3 (moderate) Qualified Code(s): E11.22 - Type 2 diabetes mellitus with diabetic chronic kidney disease; N18.3 - Chronic kidney disease, stage 3 (moderate); Z79.4 - longterm (current) use of insulin (9) Chronic renal failure, stage 4 (severe) Current Visit: No Status: Chronic Assessment and plan: Acute kidney injury on chronic kidney disease stage IV - plan as above (10) Anemia of chronic disease Current Visit: No Status: Chronic Assessment and plan: Anemia of chronic disease - secondary to chronic kidney disease stage IV H&H stable, continue to monitor (11) DVT prophylaxis Current Visit: Yes Status: Acute Assessment and plan: Continue heparin subcutaneous - Time Spent With Patient 25 - 35 minutes - Subjective Interval history: Examined this morning. Patient is awake and alert. Not in any distress. She is oriented to place and person. Denies chest pain or shortness of breath. Denies vomiting or abdominal pain. Complains of pain in sacral region, which she says is due to an ulcer. No fever. Hemodynamically stable. Urine output is low. LVEF 40-45% with global LV hypokinesis. Admitted for sepsis secondary to UTI. Cultures are positive for Pseudomonas. Patient apparently had runs of V. tach on the monitor. EKG reviewed and patient does not seem to have V. tach. Troponin trending down, with peak of 0.14. No other acute events or complaints. - Constitutional Vitals: Temp Pulse Resp BP Pulse Ox 97.4 F L 90 20 138/53 99 03/25/17 12:13 03/25/17 12:13 03/25/17 12:13 03/25/17 12:13 03/25/17 12:13 General appearance: Present: A&O X 2, no acute distress, obese, answers questions appropriately (With several attempts) - Head Head exam: Present: atraumatic - Eye Eye exam: Present: EOMI - ENT ENT exam: Present: mucous membranes dry - Respiratory Respiratory exam: Present: rales (Mild scattered bilateral). Absent: accessory muscle use, rhonchi, wheezes, tachypnea - Cardiovascular Cardiovascular exam: Present: RRR, +S1, +S2, systolic murmur - GI/Abdominal GI/Abdominal exam: Present: soft. Absent: distended, firm, guarding, tenderness - Extremities Exam Extremities exam: Present: pedal edema (Mild bilateral pedal edema), radial pulses palpable and symmetrical. Absent: cyanotic - Neurological Exam Neurological exam: Present: alert. Absent: facial droop, speech deficit Additional comments: Patient is awake and alert, able to verbalize and follows simple verbal commands. She is oriented to place and person, but not to time. She is able to move her upper extremities. Patient does have a history of a right tibial fracture and cannot move her right lower leg. She is able to move her left leg. Otherwise no obvious focal neurological deficits. Internal Medicine: Result - Labs CBC & Chem 7: 03/25/17 03:23 03/25/17 03:23 Labs: Short CBC 03/25/17 Range/Units 03:23 WBC 15.2 H (4.3-11.1) K/mcL Hgb 9.9 L (11.5-15.4) g/dL Hct 32.0 L (35.3-44.9) % Plt Count 453 H (140-400) K/mcL Neutrophils # 11.1 H (1.6-8.9) K/mcL BMP 03/25/17 03:23 Sodium 137 Potassium 3.8 Chloride 96 L Carbon Dioxide 27 BUN 60 H Creatinine 2.16 H Glucose 167 H Calcium 10.7 Cardiac Enzymes 03/24/17 03/24/17 03/25/17 Range/Units 15:13 20:56 03:23 Troponin I 0.14 H* 0.14 H* 0.10 H* (0-0.03) ng/mL - ABG Interpretation ABG results: PT/INR, D-dimer PT 14.3 Seconds (9.4-12.1) H 03/25/17 03:23 - VTE Documentation of Mechanical Device: Intermittent pneumatic compression device Consult Discharge Plan - Plan
[2017-03-25] MEDS ORDERED: 0.9 % Sodium Chloride 500 ML ONE (16:27)
[2017-03-25] MEDS: Furosemide 20 MG TABLET PO SCH ×2 (16:35→20:03)
--- NOTE | 2017-03-25 17:51 | Electrocardiograph Report ---
[place] [id number] Test Date: 2017-03-24 Pat Name: Violeta Dsouza Department: 102 Room: 2N08 Gender: F Special Agent In Charge: : 1945 Requested By: Mauro Portillo Order Number: [id number] Reading MD: Willis Johnson MD Measurements Intervals [place] Rate: 87 P: 43 MS: 291 QRS: -13 QRSD: 102 T: 136 QT: 364 QTc: 409 Interpretive Statements SINUS RHYTHM WITH FIRST DEGREE AV BLOCK LEFT VENTRICULAR HYPERTROPHY AND ST-T CHANGE Poor R wave progression Electronically Signed On 03-25-2017 17:49:09 EDT by Willis Johnson MD
[2017-03-25] MEDS: Meropenem 1,000 MG in 0.9 % Sodium Chloride Mini Bag 100 ML IVPB SCH (18:23)
[2017-03-26] MEDS ORDERED: 0.9 % Sodium Chloride 500 ML IVC ONE (00:45)
[2017-03-26] MEDS: Ipratropium/Albuterol Neb 3 ML IH SCH ×6 (00:54→20:58)
[2017-03-26] MEDS: Meropenem 1,000 MG in 0.9 % Sodium Chloride Mini Bag 100 ML IVPB SCH (06:24)
[2017-03-26] MEDS: *HR* Heparin 5,000 UNIT/ML VIAL SQ SCH ×3 (06:24→20:54)
[2017-03-26] MEDS: Levothyroxine 25 MCG TABLET PO SCH (06:24)
[2017-03-26 06:44] LABS: Basophils # 0.1 K/mcL (0.0-0.2); Basophils % 0.8 %; Eosinophils # 0.6 K/mcL (0.0-0.6); Eosinophils % 4.8 %; Hematocrit 27.7 % (35.3-44.9); Hemoglobin 8.8 g/dL (11.5-15.4); Immature Granulocytes % 0.6 % (0-4); Immature Platelets 1.6 % (1.1-6.1); Lymphocytes # 2.8 K/mcL (0.6-4.6); Lymphocytes % 23.3 %; Mean Corpuscular HGB Conc 31.8 g/dL (31.6-35.5); Mean Corpuscular Volume 97.5 fL (83.0-100.0); Mean Platelet Volume 9.1 fL (9.4-12.4); Monocytes # 1.3 K/mcL (0.0-1.3); Monocytes % 11.2 %; Neutrophils # 7.1 K/mcL (1.6-8.9); Platelet Count 490 K/mcL (140-400); Red Blood Count 2.84 M/mcL (3.82-4.97); Red Cell Distribution Width 13.7 % (11.5-14.5); Segmented Neutrophils % 59.3 %
[2017-03-26 06:58] LABS: Calcium 9.7 mg/dL (8.6-10.8); Potassium 3.8 mEq/L (3.5-4.5)
[2017-03-26] MEDS: Insulin LISPRO 300 UNITS/3 ML VIAL SQ SCH ×4 (07:52→20:55)
[2017-03-26] MEDS: Piperacillin/Tazobactam 3.375 GM in D5% in Water (Mini-Bag+) 100 ML IVPB SCH ×2 (07:54→15:45)
[2017-03-26] MEDS: Aspirin 81 MG TAB.CHEW PO SCH (07:56)
[2017-03-26] MEDS: Furosemide 40 MG TABLET PO SCH (07:56)
[2017-03-26] MEDS: Isosorbide MONOnitrate (24 HR) 30 MG TAB.ER.24H PO SCH (07:56)
[2017-03-26] MEDS: cloNIDine HCl 0.1 MG TABLET PO SCH ×2 (07:56→20:54)
[2017-03-26] MEDS: Metoprolol XL (24 HR) Succ 25 MG TAB.ER.24H PO SCH (07:56)
[2017-03-26] MEDS: Multivit/Ca/Min/Fe/FA 1 TAB TABLET PO SCH (07:56)
[2017-03-26] MEDS: Pantoprazole 40 MG VIAL IVP SCH (07:57)
[2017-03-26] MEDS: Loratadine 10 MG TABLET PO SCH (07:57)
--- NOTE | 2017-03-26 10:42 | Internal Med Progress Note ---
Date of Encounter: 03/26/17 Time of Encounter: 10:39 - Assessment and plan (1) Sepsis Current Visit: Yes Status: Acute Assessment and plan: Patient admitted with leukocytosis and fever, currently improving; lactic acid WNL; source of infection- UTI. Continue IV antibiotics, remaining plan as below. Qualifiers: Sepsis type: sepsis due to unspecified organism Qualified Code(s): A41.9 - Sepsis, unspecified organism (2) UTI (urinary tract infection) Current Visit: Yes Status: Acute Assessment and plan: Complicated catheter-associated UTI; indwelling Mccarty catheter in place; patient has h/o recurrent UTIs with MDRO in the past. Has been on IV Zosyn and Meropenem; preliminary urine culture grows Enterococcus, MDRO Pseudomonas and another GNR; 1 out of 2 initial blood cultures grow MRStaph, likely contaminant ; repeat blood cultures. Patient may not need carbapenems; will consult ID given the complex nature of multiple drug resistant bacteria causing UTIs; Qualifiers: Urinary tract infection type: site unspecified Hematuria presence: without hematuria Qualified Code(s): N39.0 - Urinary tract infection, site not specified (3) Elevated troponin Current Visit: Yes Status: Acute Assessment and plan: likely related to underlying infection; noted to have chronically elevated Troponin, not suggestive of ACS; (4) Acute kidney injury Current Visit: No Status: Acute (5) Diabetes mellitus Current Visit: Yes Status: Chronic Assessment and plan: Continue Accucheck blood glucose monitoring with basal bolus insulin regimen; diabetic diet; Qualifiers: Diabetes mellitus type: type 2 Diabetes mellitus complication status: with kidney complications Diabetes mellitus complication detail: with chronic kidney disease 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 use: with fdc use Chronic kidney disease stage: stage 3 (moderate) Qualified Code(s): E11.22 - Type 2 diabetes mellitus with diabetic chronic kidney disease; N18.3 - Chronic kidney disease, stage 3 (moderate); Z79.4 - USP (current) use of insulin (6) Diastolic CHF, chronic Current Visit: Yes Status: Chronic (7) CKD (chronic kidney disease) stage 4, GFR 15-29 ml/min Current Visit: No Status: Chronic (8) Anemia of chronic disease Current Visit: Yes Status: Chronic Assessment and plan: likely related to chronic kidney disease; at baseline; (9) Hx of coronary artery disease Current Visit: Yes Status: Chronic (10) HLD (hyperlipidemia) Current Visit: Yes Status: Chronic Qualifiers: Hyperlipidemia type: unspecified Qualified Code(s): E78.5 - Hyperlipidemia , unspecified - Subjective Interval history: Feels tired and fatigued; no nausea, vomiting, abdominal pain; - Constitutional Vitals: Temp Pulse Resp BP Pulse Ox 97.9 F 75 16 148/56 100 03/26/17 10:10 03/26/17 10:10 03/26/17 10:10 03/26/17 10:10 03/26/17 10:10 General appearance: Present: A&O X 3, obese, answers questions appropriately - Respiratory Respiratory exam: Present: CTAB. Absent: accessory muscle use, rales, rhonchi, wheezes - Cardiovascular Cardiovascular exam: Present: RRR, +S1, +S2. Absent: diastolic murmur, gallop, rubs, systolic murmur - GI/Abdominal GI/Abdominal exam: Present: normal bowel sounds, soft, no peritoneal signs. Absent: distended, tenderness - Extremities Exam Extremities exam: Present: full ROM (right LE appears shortened and externally rotated with chronic pedal edema; restricted ROM due to old fracture), pedal edema (trace pedal edema B/L), warm, radial pulses palpable and symmetrical. Absent: calf tenderness, cyanotic Internal Medicine: Result - Labs CBC & Chem 7: 03/27/17 08:34 03/27/17 08:34 Labs: Short CBC 03/26/17 Range/Units 06:00 WBC 12.0 H (4.3-11.1) K/mcL Hgb 8.8 L (11.5-15.4) g/dL Hct 27.7 L (35.3-44.9) % Plt Count 490 H (140-400) K/mcL Neutrophils # 7.1 (1.6-8.9) K/mcL BMP 03/26/17 06:00 Sodium 135 L Potassium 3.8 Chloride 96 L Carbon Dioxide 26 BUN 66 H Creatinine 2.22 H Glucose 164 H Calcium 9.7 - ABG Interpretation ABG results: PT/INR, D-dimer PT 14.3 Seconds (9.4-12.1) H 03/25/17 03:23 - VTE Documentation of Mechanical Device: Intermittent pneumatic compression device Consult Discharge Plan - Plan Referrals: Salazar Oates MD [Primary Care Provider] -
[2017-03-26 11:14] LABS: Acinetobacter baumannii by PCR Not Detected (Not Detect); Candida albicans by PCR Not Detected (Not Detect); Candida glabrata by PCR Not Detected (Not Detect); Candida krusei by PCR Not Detected (Not Detect); Candida parapsilosis by PCR Not Detected (Not Detect); Candida tropicalis by PCR Not Detected (Not Detect); Enterococcus by PCR Not Detected (Not Detect); Escherichia coli by PCR Not Detected (Not Detect); Klebsiella oxytoca by PCR Not Detected (Not Detect); Klebsiella pneumoniae by PCR Not Detected (Not Detect); Pseudomonas aeruginosa by PCR Not Detected (Not Detect); Serratia marcescens by PCR Not Detected (Not Detect); Staphylococcus aureus by PCR Not Detected (Not Detect); Streptococcus agalactiae(B)PCR Not Detected (Not Detect); Streptococcus by PCR Not Detected (Not Detect); Streptococcus pneumoniae PCR Not Detected (Not Detect); Streptococcus pyogenes (A) PCR Not Detected (Not Detect); blaKPC Carbapenem-Resist Gene Not Detected (Not Detect); mecA Methicillin-Resist Gene ***DETECTED*** (Not Detect); vanA/B Vancomycin-Resist Genes Not Detected (Not Detect)
--- NOTE | 2017-03-26 11:22 | Infectious Disease Consult ---
Date of Encounter: 03/26/17 Time of Encounter: 11: Assessment and Plan (1) Severe sepsis Status: Acute Assessment and plan: Since admission she has met two SIRS criteria of leukocytosis WBC 24.2 and a fever 100.8F prior to arrival at nursing facility. secondary to UTI (2) UTI (urinary tract infection) Status: Acute Assessment and plan: Urine cultures collected 03/23/17 revealed Pseudomonas aeruginosa MDRO and enterococcus species. repeat urine culture under proper conditions start gentamicin 200 mg IV q 24 hrs with pharmacy to help with dosing check gent level monitor kidney function closely duration of treatment 2 weeks start ampicillin Qualifiers: Urinary tract infection type: acute cystitis Hematuria presence: without hematuria Qualified Code(s): N30.00 - Acute cystitis without hematuria (3) CKD stage 4 due to type 2 diabetes mellitus Status: Chronic Assessment and plan: Continue hydration and monitor for drug toxicity. (4) Sacral decubitus ulcer, stage II Status: Acute Assessment and plan: Continue current management. (5) Coag negative Staphylococcus bacteremia Status: Acute Assessment and plan: 1/2 sets positive for CoNS contaminant no further treatment required Infectious Disease HPI - Data of Consult Consult date: 03/26/17 Requesting Physician: Liat Robles MD Primary Care Provider: Salazar Oates MD - Consult Narrative Reason for consult: MDRO UTI History of present illness: Ms. Dsouza is a 72 year old female that was admitted on 03/24/17 for altered mental status and fever. Infectious disease is consulted on 03/26/17 for MDRO UTI Ms. Dsouza is a 72 year old female with a PMH significant for current UTIs, CKD stage IV, arthritis, asthma, CHF, COPD, coronary artery disease, CVA, and diabetes that presented from [facility] with temperature of 100.8 F and altered mental status. 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 She denies any PICC lines or ports at this time and reports history of blood transfusion on 12/01/16 during prior admission. Since admission she has met two SIRS criteria of leukocytosis WBC 24.2 and a fever 100.8F prior to arrival at nursing facility. Labs on admission revealed WBC 24.2, BUN 55, creatinine 1.83, and lactic acid 1.4 Chest x-ray revealed mild interstitial edema. CT brain revealed no acute intracranial process.. Blood cultures collected 03/24/17 reveal Staphylococcus species MRSA gene on PCR. Urine cultures revealed Pseudomonas aeruginosa and enterococcus species. Patient was initially started on Levaquin and Zosyn then transition to Merrem on 03/25/17. Merrem was stopped and patient is back on Zosyn today. CC: Liat Robles MD Past Med Surg Social Fam HX - Past Medical History Medical history: arthritis, asthma, CHF, COPD, coronary artery disease, CVA, diabetes, GERD, hyperlipidemia, hypertension, myocardial infarction, osteoporosis, renal disease, thyroid disease Psychiatric history: anxiety, depression - Past Surgical History Surgical History: no surgical history - Social History Smoking Status: Former smoker Packs per day: 1 PPD - reports quitting 4 years ago Smokeless Tobacco Status: No Alcohol use: none Drug use: none - Family History Father Living Status: Hx Family Cancer: Yes Mother Living Status: Hx Family Cardiac Disorders: No Hx Family Respiratory Disorders: No Hx Family Cancer: Yes Hx Family GI Disorders: No Hx Family Endocrine Disorder: No Hx Family Neuromuscular Disorders: No Hx Family Neurologic Disorders: No Hx Family HEENT Disorders: No Hx Family Autoimmune Disorders: No Infectious Disease-CN:Meds Cholecalciferol (Vitamin D3) [Vitamin D3] 50,000 unit PO QWEEK 05/30/16 [History ] Gabapentin [Neurontin] 300 mg PO TID 05/30/16 [History] Insulin ASPART [NovoLOG] 1 - 5 unit SQ ACHS MDD PER SLIDING SCALE 05/30/16 [ History] Isosorbide MONOnitrate (24 HR) [Imdur] 30 mg PO DAILY 05/30/16 [History] cloNIDine HCl [Clonidine HCl] 0.2 mg PO BID #60 tab 06/04/16 [Rx] Aspirin 81 mg PO DAILY 07/10/16 [History] Insulin DETEMIR [Levemir] 25 unit SQ HS 07/10/16 [History] Insulin DETEMIR [Levemir] 50 unit SQ QAM 07/10/16 [History] Acetaminophen [Tylenol] 650 mg PO Q6HR PRN #0 tablet 07/20/16 [Rx] Atorvastatin Calcium [Lipitor] 80 mg PO DAILY 07/31/16 [History] Budesonide/Formoterol 160/4.5 [Symbicort 160/4.5] 2 puff IH BID 07/31/16 [ History] Clopidogrel [Plavix] 75 mg PO DAILY 07/31/16 [History] Levothyroxine [Synthroid] 25 mcg PO DAILY 07/31/16 [History] Loperamide [Imodium] 2 mg PO Q4HR PRN 07/31/16 [History] Pantoprazole Sodium [Protonix] 40 mg PO DAILY 07/31/16 [History] Saline Nasal [place] [[place] Nasal [place]] 2 spray NS TID 07/31/16 [History] Tiotropium [Spiriva] 1 cap IH DAILY 07/31/16 [History] Metoprolol Succinate 25 mg PO DAILY #30 tab.er.24h 08/12/16 [Rx] Furosemide [Lasix] 20 mg PO 1600,2000 10/07/16 [History] Multivitamin [One Daily Multivitamin] 1 tab PO DAILY 10/07/16 [History] clonazePAM [Klonopin] 1 mg PO TID PRN 3 Days 12/05/16 [Rx] Docusate [Colace] 100 mg PO BID 01/16/17 [History] Polyethylene Glycol 3350 [MiraLAX Powder Bulk 17.9 Oz] 17 gm ORAL RINSE DAILY PRN 01/16/17 [History] Bisacodyl [Dulcolax] 10 mg RC HS PRN 01/17/17 [History] Furosemide [Lasix] 40 mg PO QAM 01/17/17 [History] Oxygen 2 l NS AD 01/17/17 [History] Tramadol HCl [Ultram] 50 mg PO QID PRN 01/17/17 [History] Ipratropium/Albuterol Neb [Duoneb] 3 ml IH Q6H 03/24/17 [History] Loratadine [Claritin] 10 mg PO DAILY 03/24/17 [History] Sulfamethoxazole/Trimeth DS [Bactrim DS] 1 each PO BID 03/24/17 [History] 3 Allergy/AdvReac Type Severity Reaction Status Date / Time No Known Allergies Allergy Verified 03/24/17 13:08 Review of systems: Travel: denies recent travel Animal exposure: Denies Denies exposure to sick contacts or small children. Diet: denies ingestion of undercooked or raw meats. Dental: denies recent dental procedures - Constitutional Constitutional: Present: fever(s). Absent: chills, fatigue, weakness, weight gain - EENT Eyes: Absent: change in vision Ears: Absent: decreased hearing Nose, mouth and throat: Absent: hoarseness, nasal congestion, post-nasal drip, sinus pressure - Cardiovascular Cardiovascular: Present: palpitations, rapid heart rate. Absent: chest pain, edema, leg ulcers - Respiratory Respiratory: Present: cough. Absent: dyspnea, excessive phlegm production - Gastrointestinal Gastrointestinal: Absent: abdominal pain, diarrhea, nausea, vomiting - Genitourinary Genitourinary: Present: dysuria, urinary frequency, urinary incontinence, urinary urgency. Absent: flank pain, hematuria - Integumentary Integumentary: Present: skin ulcer. Absent: change in hair, change in nails, erythema, new lesions - Neurological Neurological: Absent: confusion, dizziness, headache(s) - Endocrine Endocrine: Absent: cold intolerance, heat intolerance, polydipsia, polyphagia, polyuria - Hematologic/Lymphatic Hematologic/Lymphatic: Absent: lymphadenopathy Exam - Constitutional Vitals: Temp Pulse Resp BP Pulse Ox 97.9 F 75 16 148/56 100 03/26/17 10:10 03/26/17 10:10 03/26/17 10:10 03/26/17 10:10 03/26/17 10:10 General appearance: cooperative, no acute distress, obese, no febrile - Head Head exam: Present: atraumatic, normal inspection, normocephalic - Eye Eye exam: Present: PERRL, conjuntiva pink - ENT ENT exam: Present: mucous membranes moist, normal oropharynx - Neck Neck exam: Present: full ROM, normal inspection - Respiratory Respiratory exam: Present: decreased breath sounds. Absent: wheezes Additional comments: Poor respiratory effort - Cardiovascular Cardiovascular exam: Present: RRR, +S1, +S2 - GI/Abdominal GI/Abdominal exam: Present: normal bowel sounds, soft. Absent: guarding, rebound - Extremities Exam Extremities exam: Absent: full ROM, pedal edema Additional comments: Decreased range of motion right lower extremity, distal pulses intact - Neurological Exam Neurological exam: Present: alert, oriented X3. Absent: altered - Psychiatric Psychiatric exam: Present: normal affect, normal mood - Skin Skin exam: Present: dry Additional comments: Stage II sacral decubitus ulcer no erythema or signs of acute infection Infectious Disease CN: Results - Labs CBC & Chem 7: 03/26/17 06:00 03/26/17 06:00 Cultures: Microbiology 03/24/17 10:30 Urine Culture - Final Urine,Clean Catch Pseudomonas aeruginosa Enterococcus species 03/24/17 10:05 Blood Culture - Preliminary Peripheral Venipuncture Staphylococcus species 03/24/17 10:10 Blood Culture - Preliminary Peripheral Venipuncture No growth. - VTE Documentation of Mechanical Device: Intermittent pneumatic compression device Consult Discharge Plan - Plan Referrals: Salazar Oates MD [Primary Care Provider] - - Attending Attestation I examined this patient and my medical decision-making was reviewed with the Resident Physician. I agree with the documented findings, disposition and treatment plan as described except to the extent set forth below. This is an addendum to original report dictated by Resident physician, please refer to his not for full details. Patient is a 72 year old Woman which was admitted to [facility] on 03/24 with fever and AMS, we are consulted for sepsis and UTI. Patient with past medical history mentioned below came into [facility] complaining of AMS and fever that presented earlier on the day of admission. Since arrival to [facility] ED, patient has been afebrile with Tmax of 99.4F, HR within normal limit, WBC of 24.2 with 81% neurtrophils and dehydration of bun/cr ration of 183. Lactic acid was done and was WNL, a U/A was done and appears contaminated but a culture was done and it came back positive for pseudomonas aeruginosa that only susceptible to aminoglycosides and Amp sensitive Enterococcus. We are asked to see the patient and make further recommendations. At this point, I spoke with microbiology because pip/tazo was not showing up on the susceptibility list, but it was resistant. Repeat urine culture under proper condition At this point, the only option we have would be gentamicin with combination of ampicillin for now. Patients creatinine clearance currently around 22? Will need to be very careful with gent dosing, will ask pharmacy to help Monitor labs and for drug toxicity Patient to be treated for 14 days total
[2017-03-26] MEDS: Budesonide/Formoterol 160/4.5 MDI IH SCH ×2 (11:45→20:58)
[2017-03-26] MEDS: *HR* HYDROcodone/Acet 5/325 mg TABLET PO PRN (15:41)
[2017-03-26] MEDS: Furosemide 20 MG TABLET PO SCH ×2 (15:41→20:54)
[2017-03-26] MEDS ORDERED: Gentamicin 140 MG in 0.9 % Sodium Chloride 100 ML IVPB ONE (17:00)
[2017-03-26] MEDS: Ampicillin 1,000 MG in 0.9 % Sodium Chloride Mini Bag 100 ML IVPB SCH ×2 (17:51→23:41)
--- NOTE | 2017-03-26 18:27 | Electrocardiograph Report ---
[place] [id number] Test Date: 2017-03-25 Pat Name: Violeta Dsouza Department: 110 Room: 2N08 Gender: F [employer]: GÓMEZ : 1945 Requested By: Lewis Camacho Order Number: [id number] Reading MD: Cate Martinez Measurements Intervals [place] Rate: 89 P: [place]: 0 QRS: -14 QRSD: 99 T: 136 QT: 376 QTc: 423 Interpretive Statements SINUS RHYTHM WITH FIRST DEGREE BLOCK LEFTWARD AXIS LEFT VENTRICULAR HYPERTROPHY AND ST-T CHANGE Electronically Signed On 03-26-2017 18:26:13 EDT by Cate Martinez
[2017-03-27] MEDS: Ipratropium/Albuterol Neb 3 ML IH SCH ×7 (00:14→23:24)
[2017-03-27] MEDS: Ampicillin 1,000 MG in 0.9 % Sodium Chloride Mini Bag 100 ML IVPB SCH ×4 (05:56→23:56)
[2017-03-27] MEDS: *HR* Heparin 5,000 UNIT/ML VIAL SQ SCH ×3 (05:56→23:56)
[2017-03-27] MEDS: Levothyroxine 25 MCG TABLET PO SCH (05:56)
[2017-03-27] MEDS: Budesonide/Formoterol 160/4.5 MDI IH SCH ×2 (07:55→19:46)
[2017-03-27 08:43] LABS: Basophils # 0.1 K/mcL (0.0-0.2); Basophils % 0.9 %; Eosinophils # 0.6 K/mcL (0.0-0.6); Eosinophils % 4.7 %; Hematocrit 28.8 % (35.3-44.9); Hemoglobin 9.2 g/dL (11.5-15.4); Immature Granulocytes % 0.6 % (0-4); Lymphocytes # 3.3 K/mcL (0.6-4.6); Lymphocytes % 27.9 %; Mean Corpuscular HGB Conc 31.9 g/dL (31.6-35.5); Mean Corpuscular Hemoglobin 30.6 pg (28.0-33.3); Mean Corpuscular Volume 95.7 fL (83.0-100.0); Mean Platelet Volume 8.4 fL (9.4-12.4); Monocytes # 1.2 K/mcL (0.0-1.3); Monocytes % 10.2 %; Neutrophils # 6.5 K/mcL (1.6-8.9); Platelet Count 424 K/mcL (140-400); Red Blood Count 3.01 M/mcL (3.82-4.97); Red Cell Distribution Width 13.6 % (11.5-14.5); Segmented Neutrophils % 55.7 %
[2017-03-27 08:56] LABS: Calcium 10.1 mg/dL (8.6-10.8); Potassium 3.7 mEq/L (3.5-4.5)
[2017-03-27] MEDS: Insulin LISPRO 300 UNITS/3 ML VIAL SQ SCH ×4 (09:19→23:23)
[2017-03-27] MEDS: Aspirin 81 MG TAB.CHEW PO SCH (09:20)
[2017-03-27] MEDS: Metoprolol XL (24 HR) Succ 25 MG TAB.ER.24H PO SCH (09:20)
[2017-03-27] MEDS: Isosorbide MONOnitrate (24 HR) 30 MG TAB.ER.24H PO SCH (09:20)
[2017-03-27] MEDS: Furosemide 40 MG TABLET PO SCH (09:20)
[2017-03-27] MEDS: cloNIDine HCl 0.1 MG TABLET PO SCH ×2 (09:20→19:41)
[2017-03-27] MEDS: Loratadine 10 MG TABLET PO SCH (09:20)
[2017-03-27] MEDS: Multivit/Ca/Min/Fe/FA 1 TAB TABLET PO SCH (09:20)
--- NOTE | 2017-03-27 10:47 | Internal Med Progress Note ---
Date of Encounter: 03/27/17 Time of Encounter: 10:45 - Assessment and plan (1) Sepsis Current Visit: Yes Status: Acute Assessment and plan: Patient admitted with leukocytosis and fever, currently improving; lactic acid WNL; source of infection- UTI. Continue IV antibiotics, remaining plan as below. Qualifiers: Sepsis type: Pseudomonas Qualified Code(s): A41.52 - Sepsis due to Pseudomonas (2) UTI (urinary tract infection) Current Visit: Yes Status: Acute Assessment and plan: Complicated catheter-associated UTI; indwelling Mccarty catheter in place; patient has h/o recurrent UTIs with MDRO in the past. Has been on IV Zosyn and Meropenem; preliminary urine culture grows Enterococcus, Pseudomonas; 1 out of 2 initial blood cultures grow MRStaph, likely contaminant; repeat blood cultures so far negative. ID consult appreciated- recommended IV Ampicillin and Gentamicin pending final cultures and sensitivities; careful renal dosing needed , d/w Pharmacy; will repeat UA with sterile sample; Patient will need EPIV for 2 weeks of IV antibiotics at the [facility]; Qualifiers: Urinary tract infection type: site unspecified Hematuria presence: without hematuria Qualified Code(s): N39.0 - Urinary tract infection, site not specified (3) Acute kidney injury Current Visit: Yes Status: Resolved Assessment and plan: improved with IV hydration; likely related to sepsis and infection; dose antibiotics per current GFR; avoid nephrotoxic agents if possible; (4) Diabetes mellitus Current Visit: Yes Status: Chronic Assessment and plan: Continue Accucheck blood glucose monitoring with basal bolus insulin regimen; diabetic diet; blood sugars noted to be well-controlled; Qualifiers: Diabetes mellitus type: type 2 Diabetes mellitus complication status: with kidney complications Diabetes mellitus complication detail: with chronic kidney disease Diabetes mellitus buttermaker continuous churn insulin use: with buttermaker continuous churn use Chronic kidney disease stage: stage 3 (moderate) Qualified Code(s): E11.22 - Type 2 diabetes mellitus with diabetic chronic kidney disease; N18.3 - Chronic kidney disease, stage 3 (moderate); Z79.4 - halfway (current) use of insulin (5) Diastolic CHF, chronic Current Visit: Yes Status: Chronic (6) Elevated troponin Current Visit: Yes Status: Resolved Assessment and plan: likely related to underlying infection; noted to have chronically elevated Troponin, not suggestive of ACS; (7) CKD (chronic kidney disease) stage 4, GFR 15-29 ml/min Current Visit: Yes Status: Chronic (8) Anemia of chronic disease Current Visit: Yes Status: Chronic (9) Hx of coronary artery disease Current Visit: Yes Status: Chronic (10) HLD (hyperlipidemia) Current Visit: Yes Status: Chronic Qualifiers: Hyperlipidemia type: unspecified Qualified Code(s): E78.5 - Hyperlipidemia , unspecified - Subjective Interval history: Feels better; reports abdominal pain to deep palpation; no bowel movements; no fever/chills, dyspnea, chest pain; - Constitutional Vitals: Temp Pulse Resp BP Pulse Ox 96.3 F L 84 16 171/58 96 03/27/17 08:45 03/27/17 08:45 03/27/17 08:45 03/27/17 08:45 03/27/17 08:45 General appearance: Present: A&O X 3, obese, answers questions appropriately - Respiratory Respiratory exam: Present: CTAB. Absent: accessory muscle use, rales, rhonchi, wheezes - Cardiovascular Cardiovascular exam: Present: RRR, +S1, +S2. Absent: diastolic murmur, gallop, rubs, systolic murmur - GI/Abdominal GI/Abdominal exam: Present: normal bowel sounds, soft (mild tenderness in LLQ), no peritoneal signs. Absent: distended, tenderness Internal Medicine: Result - Labs CBC & Chem 7: 03/27/17 08:34 03/27/17 08:34 Labs: Short CBC 03/27/17 Range/Units 08:34 WBC 11.7 H (4.3-11.1) K/mcL Hgb 9.2 L (11.5-15.4) g/dL Hct 28.8 L (35.3-44.9) % Plt Count 424 H (140-400) K/mcL Neutrophils # 6.5 (1.6-8.9) K/mcL BMP 03/27/17 08:34 Sodium 137 Potassium 3.7 Chloride 100 Carbon Dioxide 25 BUN 60 H Creatinine 2.11 H Glucose 140 H Calcium 10.1 - ABG Interpretation ABG results: PT/INR, D-dimer PT 14.3 Seconds (9.4-12.1) H 03/25/17 03:23 - VTE Documentation of Mechanical Device: Intermittent pneumatic compression device Consult Discharge Plan - Plan Referrals: Salazar Oates MD [Primary Care Provider] -
--- NOTE | 2017-03-27 11:00 | Infectious Disease Progress No ---
Date of Encounter: 03/27/17 Time of Encounter: 10:57 - Assessment and Plan (1) Severe sepsis Current Visit: Yes Status: Acute The patient had two SIRS criteria. Likely secondary to UTI. Improved. WBC continues to trend down. She has been afebrile. Blood cultures drawn 03/24/17 were positive 1/2 sets for CONS --> likely a contaminant. (2) UTI (urinary tract infection) Current Visit: No Status: Acute Causative organism MDR PSEA and Enterococcus species. Urine culture obtained 03/23/17 and 03/24/17 both grew the same organisms. Likely secondary to the chronic indwelling clarke catheter. Recommend switching out clarke if not already done. Continue Gentamicin. Dosing per pharmacy's recommendations. Continue ampicillin 1 gram IV Q6H. Duration of treatment depends on the clinical picture, but would recommend a total of 14 days. Monitor renal function and for drug toxicity and dose-adjust antibiotics. Qualifiers: Urinary tract infection type: site unspecified Hematuria presence: without hematuria Qualified Code(s): N39.0 - Urinary tract infection, site not specified (3) Coag negative Staphylococcus bacteremia Current Visit: Yes Status: Acute Blood cultures drawn 03/24/17 were positive 1/2 sets for CONS. Given the clinical picture, this is likely a contaminant. No further treatment required. (4) Sacral decubitus ulcer, stage II Current Visit: Yes Status: Acute Continue wound care. Recommend aggressive turning and offloading to prevent further skin breakdown. (5) CAD (coronary artery disease) Current Visit: Yes Status: Chronic Qualifiers: Coronary Disease-Associated Artery/Lesion type: unspecified vessel or lesion type [place] vs. transplanted heart: [place] heart Associated angina: angina presence unspecified Qualified Code(s): I25.10 - Atherosclerotic heart disease of [place] coronary artery without angina pectoris (6) CKD stage 4 due to type 2 diabetes mellitus Current Visit: No Status: Chronic Continue to monitor serum creatinine closely. Dose-adjust antibiotics. - Subjective Interval history: Patient seen and examined. No acute events noted overnight. Patient resting quietly in bed. Denies acute complaints. Denies chest pain, shortness of breath , or cough. Denies nausea, vomiting, diarrhea, or constipation, but she is unsure when her last BM was. She has an indwelling clarke catheter that remains patent with clear yellow urine. Denies abdominal or back pain. Complains of RLE pain with movement. Denies oral thrush. Infect Dis PN-Objective Data - Labs CBC & Chem 7: 03/27/17 08:34 03/27/17 08:34 Labs: Laboratory Results - last 24 hr 03/25/17 03/26/17 03/26/17 07:51 11:44 16:07 WBC RBC Hgb Hct MCV MCH MCHC RDW Plt Count MPV Immature Gran % Seg Neutrophils % Lymphocytes % Monocytes % Eosinophils % Basophils % Neutrophils # Lymphocytes # Monocytes # Eosinophils # Basophils # Sodium Potassium Chloride Carbon Dioxide BUN Creatinine Est GFR ( Amer) Est GFR (Non-Af Amer) BUN/Creatinine Ratio Glucose POC Glucose 181 H 166 H 222 H Calculated Osmolality Calcium Magnesium 03/26/17 03/27/17 03/27/17 20:22 08:34 08:34 WBC 11.7 H RBC 3.01 L Hgb 9.2 L Hct 28.8 L MCV 95.7 MCH 30.6 MCHC 31.9 RDW 13.6 Plt Count 424 H MPV 8.4 L Immature Gran % 0.6 Seg Neutrophils % 55.7 Lymphocytes % 27.9 Monocytes % 10.2 Eosinophils % 4.7 Basophils % 0.9 Neutrophils # 6.5 Lymphocytes # 3.3 Monocytes # 1.2 Eosinophils # 0.6 Basophils # 0.1 Sodium 137 Potassium 3.7 Chloride 100 Carbon Dioxide 25 BUN 60 H Creatinine 2.11 H Est GFR ( Amer) 28 L Est GFR (Non-Af Amer) 23 L BUN/Creatinine Ratio 28 H Glucose 140 H POC Glucose 177 H Calculated Osmolality 303 H Calcium 10.1 Magnesium 2.0 Exam - Constitutional Vitals: Temp Pulse Resp BP Pulse Ox 96.3 F L 84 16 171/58 96 03/27/17 08:45 03/27/17 08:45 03/27/17 08:45 03/27/17 08:45 03/27/17 08:45 General appearance: cooperative, no acute distress, obese - Head Head exam: Present: atraumatic, normal inspection, normocephalic - Eye Eye exam: Present: EOMI, normal appearance, PERRL Pupils: Present: normal accommodation - ENT ENT exam: Present: mucous membranes moist - Neck Neck exam: Present: normal inspection - Respiratory Respiratory exam: Present: CTAB. Absent: rales, respiratory distress, rhonchi, wheezes - Cardiovascular Cardiovascular exam: Present: RRR, +S1, +S2 - GI/Abdominal GI/Abdominal exam: Present: distended (obese), normal bowel sounds, soft. Absent: tenderness Additional comments: Clarke catheter noted to be draining clear yellow urine. - Extremities Exam Extremities exam: Present: pedal edema (1+ BLE), tenderness (RLE) Additional comments: Chronic RLE deformity noted due to previous fracture. - Neurological Exam Neurological exam: Present: alert, oriented X3, no focal deficits - Psychiatric Psychiatric exam: Present: normal affect, normal mood - Skin Skin exam: Present: dry, intact, normal color, warm - VTE Documentation of Mechanical Device: Intermittent pneumatic compression device Consult Discharge Plan - Plan Referrals: Salazar Oates MD [Primary Care Provider] -
[2017-03-27] MEDS: *HR* HYDROcodone/Acet 5/325 mg TABLET PO PRN (12:22)
[2017-03-27] MEDS: Sennosides/Docusate Sodium TABLET PO SCH ×2 (12:22→19:41)
[2017-03-27] MEDS: clonazePAM 1 MG TABLET PO PRN (13:45)
[2017-03-27 14:40] LABS: Bilirubin,Urine Negative (Negative); Blood,Urine Negative (Negative); Clarity,Urine Cloudy (Clear); Color,Urine Yellow (Yellow); Glucose,Urine (UA) Normal (Normal); Ketones,Urine Negative (Negative); Leukocyte Esterase,Urine Large (Negative); Nitrite,Urine Negative (Negative); Protein,Urine 100 mg/dL (Neg-Trace); Urobilinogen,Urine Normal (Normal)
[2017-03-27 14:46] LABS: Bacteria,Urine None Seen per hpf (None-Few); Hyaline Casts,Urine None Seen per lpf (None-Few); Squamous Epithelial Cell,Urine Many per lpf (None-Few); WBC,Urine TNTC per hpf (0-3)
[2017-03-27 15:15] LABS: Transitional Epi Cells,Urine Few per hpf (None-Few)
[2017-03-27 15:19] LABS: Renal Epithelial Cells,Urine Few per hpf (None-Few); Yeast,Urine Many per hpf (None Seen)
[2017-03-27] MEDS: Gentamicin 120 MG in 0.9 % Sodium Chloride 100 ML IVPB SCH (17:13)
[2017-03-27] MEDS: Furosemide 20 MG TABLET PO SCH ×2 (17:13→19:40)
[2017-03-28] MEDS: Ipratropium/Albuterol Neb 3 ML IH SCH ×6 (04:12→23:43)
[2017-03-28] MEDS: *HR* HYDROcodone/Acet 5/325 mg TABLET PO PRN ×2 (04:38→15:37)
[2017-03-28] MEDS: Ampicillin 1,000 MG in 0.9 % Sodium Chloride Mini Bag 100 ML IVPB SCH ×3 (06:12→17:00)
[2017-03-28] MEDS: *HR* Heparin 5,000 UNIT/ML VIAL SQ SCH ×2 (06:12→14:13)
[2017-03-28] MEDS: Levothyroxine 25 MCG TABLET PO SCH (06:12)
[2017-03-28] MEDS: Budesonide/Formoterol 160/4.5 MDI IH SCH ×2 (08:00→20:10)
[2017-03-28] MEDS: Insulin LISPRO 300 UNITS/3 ML VIAL SQ SCH ×2 (08:46→12:13)
[2017-03-28] MEDS: cloNIDine HCl 0.1 MG TABLET PO SCH (08:47)
[2017-03-28] MEDS: Furosemide 40 MG TABLET PO SCH (08:47)
[2017-03-28] MEDS: Isosorbide MONOnitrate (24 HR) 30 MG TAB.ER.24H PO SCH (08:47)
[2017-03-28] MEDS: Metoprolol XL (24 HR) Succ 25 MG TAB.ER.24H PO SCH (08:47)
[2017-03-28] MEDS: Aspirin 81 MG TAB.CHEW PO SCH (08:47)
[2017-03-28] MEDS: Loratadine 10 MG TABLET PO SCH (08:47)
[2017-03-28] MEDS: Sennosides/Docusate Sodium TABLET PO SCH (08:47)
[2017-03-28] MEDS: Multivit/Ca/Min/Fe/FA 1 TAB TABLET PO SCH (08:47)
--- NOTE | 2017-03-28 11:22 | Discharge Summary ---
Date of Encounter: 03/28/17 Time of Encounter: 11:14 - Discharge Diagnosis (1) Sepsis Priority: Primary Status: Acute Qualifiers: Sepsis type: Pseudomonas Qualified Code(s): A41.52 - Sepsis due to Pseudomonas (2) UTI (urinary tract infection) Priority: Primary Status: Acute Qualifiers: Urinary tract infection type: site unspecified Hematuria presence: without hematuria Qualified Code(s): N39.0 - Urinary tract infection, site not specified (3) Acute kidney injury Priority: Primary Status: Resolved (4) Diabetes mellitus Priority: Secondary Status: Chronic Qualifiers: Diabetes mellitus type: type 2 Diabetes mellitus complication status: with kidney complications Diabetes mellitus complication detail: with chronic kidney disease Diabetes mellitus usp insulin use: with usp use Chronic kidney disease stage: stage 3 (moderate) Qualified Code(s): E11.22 - Type 2 diabetes mellitus with diabetic chronic kidney disease; N18.3 - Chronic kidney disease, stage 3 (moderate); 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 (5) Diastolic CHF, chronic Priority: Secondary Status: Chronic (6) Elevated troponin Priority: Primary Status: Resolved (7) CKD (chronic kidney disease) stage 4, GFR 15-29 ml/min Priority: Secondary Status: Chronic (8) Anemia of chronic disease Priority: Secondary Status: Chronic (9) Hx of coronary artery disease Priority: Secondary Status: Chronic (10) HLD (hyperlipidemia) Priority: Secondary Status: Chronic Qualifiers: Hyperlipidemia type: unspecified Qualified Code(s): E78.5 - Hyperlipidemia , unspecified - Discharge Medications Prescriptions: Ampicillin 1,000 mg IV Q6HR 12 Days Gentamicin 60 mg IV Q48H 12 Days Home Medications: Cholecalciferol (Vitamin D3) [Vitamin D3] 50,000 unit PO QWEEK 05/30/16 [History ] Gabapentin [Neurontin] 300 mg PO TID 05/30/16 [History] Insulin ASPART [NovoLOG] 1 - 5 unit SQ ACHS MDD PER SLIDING SCALE 05/30/16 [ History] Isosorbide MONOnitrate (24 HR) [Imdur] 30 mg PO DAILY 05/30/16 [History] cloNIDine HCl [Clonidine HCl] 0.2 mg PO BID #60 tab 06/04/16 [Rx] Aspirin 81 mg PO DAILY 07/10/16 [History] Insulin DETEMIR [Levemir] 25 unit SQ HS 07/10/16 [History] Insulin DETEMIR [Levemir] 50 unit SQ QAM 07/10/16 [History] Acetaminophen [Tylenol] 650 mg PO Q6HR PRN #0 tablet 07/20/16 [Rx] Atorvastatin Calcium [Lipitor] 80 mg PO DAILY 07/31/16 [History] Budesonide/Formoterol 160/4.5 [Symbicort 160/4.5] 2 puff IH BID 07/31/16 [ History] Clopidogrel [Plavix] 75 mg PO DAILY 07/31/16 [History] Levothyroxine [Synthroid] 25 mcg PO DAILY 07/31/16 [History] Loperamide [Imodium] 2 mg PO Q4HR PRN 07/31/16 [History] Pantoprazole Sodium [Protonix] 40 mg PO DAILY 07/31/16 [History] Saline Nasal [place] [[place] Nasal Lewis] 2 spray NS TID 07/31/16 [History] Tiotropium [Spiriva] 1 cap IH DAILY 07/31/16 [History] Metoprolol Succinate 25 mg PO DAILY #30 tab.er.24h 08/12/16 [Rx] Furosemide [Lasix] 20 mg PO 1600,2000 10/07/16 [History] Multivitamin [One Daily Multivitamin] 1 tab PO DAILY 10/07/16 [History] Docusate [Colace] 100 mg PO BID 01/16/17 [History] Polyethylene Glycol 3350 [MiraLAX Powder Bulk 17.9 Oz] 17 gm ORAL RINSE DAILY PRN 01/16/17 [History] Bisacodyl [Dulcolax] 10 mg RC HS PRN 01/17/17 [History] Furosemide [Lasix] 40 mg PO QAM 01/17/17 [History] Oxygen 2 l NS AD 01/17/17 [History] Ipratropium/Albuterol Neb [Duoneb] 3 ml IH Q6H 03/24/17 [History] Loratadine [Claritin] 10 mg PO DAILY 03/24/17 [History] Ampicillin 1,000 mg IV Q6HR 12 Days 03/28/17 [Rx] Benzocaine/Menthol Rocio [Cepacol Sore Throat Lozenge] 1 each MM Q2H PRN lozenge 03/28/17 [Rx] Gentamicin 60 mg IV Q48H 12 Days 03/28/17 [Rx] Tramadol HCl [Ultram] 50 mg PO QID PRN #20 03/28/17 [Rx] clonazePAM [Klonopin] 1 mg PO TID PRN #15 tablet 03/28/17 [Rx] Allergies/Adverse Reactions: 3 Allergy/AdvReac Type Severity Reaction Status Date / Time No Known Allergies Allergy Verified 03/24/17 13:08 Date of admission: 03/24/17 12:38 Primary care physician: Salazar Oates MD Consults: 03/26/17 10:25 Consult to Infectious Diseases [CONS] Routine Consulting Provider: Infectious Disease Sameera Reason for Consult: MDRO UTI Call Completed: Yes 03/27/17 10:44 Consult to PICC team [Consult to Invasive Line Access Team] [CONS] Routine Reason for Consult: Discharging on IV ATB to ECF Line Type: EPIV PICC line indications: correction Med/Antibiotic Time Notified: 10:45 Call Completed: Yes Discharging clinician: Liat Robles Anticipated date of discharge: 03/28/17 - Patient Status Disposition: Transfer SNF Condition: Fair Functional capacity at discharge: bed bound Overall status at discharge: patient is progressing back to baseline - Discharge Instructions Instructions: Urinary Tract Infection in Women (DC), Pneumonia (DC) Follow Up With: Salazar Oates MD [Primary Care Provider] - (PT IS FROM [facility], NO PCP APPOINTMENT IS NEEDED) Forms: ED Satisfaction Letter Additional Instructions: F/up with PCP in 1-2 weeks Needs close monitoring of renal function and Gentamicin levels until antibiotics are completed; - Diet and Activity Activity: as per physical therapy Diet: diabetic diet, low fat, low cholesterol, low salt diet, other (renal diet) Hospital course: Ms. Dsouza is a 72 year old female [facility] resident with the above medical problems, who was admitted with generalized weakness. She was noted to have sepsis secondary to UTI along with mild troponin elevation and acute on chronic renal failure. She was started on IV hydration along with IV Zosyn at admission. Outpatient urine culture the day prior to admission was noted to be growing Pseudomonas and enterococcus and patient has history of multidrug resistant Pseudomonas. Infectious diseases was consulted and antibiotics were switched to IV ampicillin and gentamicin. Patient significantly improved with medical management and she was noted to be more alert and oriented, serum creatinine came back to baseline. Troponin elevation was thought to be due to demand ischemia related to sepsis, ACS is less likely. Patient is currently medically stable to be transferred back to [facility]. Gentamicin trough prior to discharge was noted to be elevated and dose has been adjusted. She requires close monitoring of creatinine clearance and gentamicin levels as an outpatient. - Time Spent with Patient Total time spent providing and/or coordinating discharge services: Greater than 30 minutes (45 min) - Constitutional Vitals: Temp Pulse Resp BP Pulse Ox 97.4 F L 68 16 161/67 98 03/28/17 07:13 03/28/17 07:13 03/28/17 07:13 03/28/17 07:13 03/28/17 07:13 General appearance: Present: A&O X 3, obese, answers questions appropriately - Cardiovascular Cardiovascular exam: Present: RRR, +S1, +S2. Absent: diastolic murmur, gallop, rubs, systolic murmur - GI/Abdominal GI/Abdominal exam: Present: normal bowel sounds, soft, no peritoneal signs. Absent: distended, tenderness - VTE Documentation of Mechanical Device: Intermittent pneumatic compression device
--- NOTE | 2017-03-28 11:31 | Physician Discharge Referral ---
[facility]Care Referral Info Transfer To: [facility] Provider in Charge: Liat Robles Provider in Charge after Transfer: PCP Institutional Level of Care: Intermediate - Diagnosis (1) Sepsis Priority: Primary Status: Acute (2) UTI (urinary tract infection) Priority: Primary Status: Acute (3) Acute kidney injury Priority: Primary Status: Resolved (4) Diabetes mellitus Priority: Secondary Status: Chronic (5) Diastolic CHF, chronic Priority: Secondary Status: Chronic (6) Elevated troponin Priority: Primary Status: Resolved (7) CKD (chronic kidney disease) stage 4, GFR 15-29 ml/min Priority: Secondary Status: Chronic (8) Anemia of chronic disease Priority: Secondary Status: Chronic (9) Hx of coronary artery disease Priority: Secondary Status: Chronic (10) HLD (hyperlipidemia) Priority: Secondary Status: Chronic Expected Duration of Placement: retirement Prognosis: Fair Aware of Diagnosis: Patient Aware of Prognosis: Patient - Transfer Medications Prescriptions: Ampicillin 1,000 mg IV Q6HR 12 Days Gentamicin 120 mg IV DAILY 12 Days Home Medications: Cholecalciferol (Vitamin D3) [Vitamin D3] 50,000 unit PO QWEEK 05/30/16 [History ] Gabapentin [Neurontin] 300 mg PO TID 05/30/16 [History] Insulin ASPART [NovoLOG] 1 - 5 unit SQ ACHS MDD PER SLIDING SCALE 05/30/16 [ History] Isosorbide MONOnitrate (24 HR) [Imdur] 30 mg PO DAILY 05/30/16 [History] cloNIDine HCl [Clonidine HCl] 0.2 mg PO BID #60 tab 06/04/16 [Rx] Aspirin 81 mg PO DAILY 07/10/16 [History] Insulin DETEMIR [Levemir] 25 unit SQ HS 07/10/16 [History] Insulin DETEMIR [Levemir] 50 unit SQ QAM 07/10/16 [History] Acetaminophen [Tylenol] 650 mg PO Q6HR PRN #0 tablet 07/20/16 [Rx] Atorvastatin Calcium [Lipitor] 80 mg PO DAILY 07/31/16 [History] Budesonide/Formoterol 160/4.5 [Symbicort 160/4.5] 2 puff IH BID 07/31/16 [ History] Clopidogrel [Plavix] 75 mg PO DAILY 07/31/16 [History] Levothyroxine [Synthroid] 25 mcg PO DAILY 07/31/16 [History] Loperamide [Imodium] 2 mg PO Q4HR PRN 07/31/16 [History] Pantoprazole Sodium [Protonix] 40 mg PO DAILY 07/31/16 [History] Saline Nasal [place] [[place] Nasal [place]] 2 spray NS TID 07/31/16 [History] Tiotropium [Spiriva] 1 cap IH DAILY 07/31/16 [History] Metoprolol Succinate 25 mg PO DAILY #30 tab.er.24h 08/12/16 [Rx] Furosemide [Lasix] 20 mg PO 1600,199910/07/16 [History] Multivitamin [One Daily Multivitamin] 1 tab PO DAILY 10/07/16 [History] Docusate [Colace] 100 mg PO BID 01/16/17 [History] Polyethylene Glycol 3350 [MiraLAX Powder Bulk 17.9 Oz] 17 gm ORAL RINSE DAILY PRN 01/16/17 [History] Bisacodyl [Dulcolax] 10 mg RC HS PRN 01/17/17 [History] Furosemide [Lasix] 40 mg PO QAM 01/17/17 [History] Oxygen 2 l NS AD 01/17/17 [History] Ipratropium/Albuterol Neb [Duoneb] 3 ml IH Q6H 03/24/17 [History] Loratadine [Claritin] 10 mg PO DAILY 03/24/17 [History] Ampicillin 1,000 mg IV Q6HR 12 Days 03/28/17 [Rx] Benzocaine/Menthol Rocio [Cepacol Sore Throat Lozenge] 1 each MM Q2H PRN lozenge 03/28/17 [Rx] Gentamicin 120 mg IV DAILY 12 Days 03/28/17 [Rx] Tramadol HCl [Ultram] 50 mg PO QID PRN #20 03/28/17 [Rx] clonazePAM [Klonopin] 1 mg PO TID PRN #15 tablet 03/28/17 [Rx] Allergies/Adverse Reactions: 3 Allergy/AdvReac Type Severity Reaction Status Date / Time No Known Allergies Allergy Verified 03/24/17 13:08 - Respiratory Orders Smoking Cessation: Smoking cessation has been advised. For more information, call the [place] Tobacco Quit Line at 7-963-JJFN-NOW. - Ancillary Orders May use pressure relief devices daily prn - Advance Directives Code Status: Full Code - Mobility Orders Bedrest - Rehabiliation Orders Rehab Potential: Fair Rehab Orders: ROM Exercises, Evaluation for Physical Therapy, Evaluation for Occupational Therapy - Treatments May check for fecal impaction rectally daily PRN - Diet Orders No Concentrated Sweets (diabetic), Renal, Cardiac CERTIFICATION: I certify that the transfer of the above named patient to an Extended Care Facility is necessary for the continuing treatment of the diagnosis listed. The above information is true and accurate reflection of patient's current condition. Confidential - Redisclosure prohibited without a patient's written consent.
--- NOTE | 2017-03-28 11:38 | Infectious Disease Progress No ---
Date of Encounter: 03/28/17 Time of Encounter: 11:36 - Assessment and Plan (1) Severe sepsis Current Visit: Yes Status: Acute The patient had two SIRS criteria. Likely secondary to UTI. Improved. WBC continues to trend down. She has been afebrile. Blood cultures drawn 03/24/17/ were positive 1/2 sets for CONS --> likely a contaminant. Repeat blood cultures drawn 03/26/17 are NGTD. (2) UTI (urinary tract infection) Current Visit: Yes Status: Acute Causative organism MDR PSEA and Enterococcus species. Urine culture obtained 03/23/17 and 03/24/17 both grew the same organisms. Likely secondary to the chronic indwelling clarke catheter. Recommend switching out clarke if not already done. Continue Gentamicin. Dosing per pharmacy's recommendations. Continue ampicillin 1 gram IV Q6H. Duration of treatment depends on the clinical picture, but would recommend a total of 14 days. Treat through 04/09/17. Monitor renal function and for drug toxicity and dose-adjust antibiotics. Qualifiers: Urinary tract infection type: site unspecified Hematuria presence: without hematuria Qualified Code(s): N39.0 - Urinary tract infection, site not specified (3) Coag negative Staphylococcus bacteremia Current Visit: Yes Status: Ruled-out Blood cultures drawn 03/24/17 were positive 1/2 sets for CONS. Given the clinical picture, this is likely a contaminant. No further treatment required. Repeat blood cultures drawn 03/26/17 are NGTD. (4) Sacral decubitus ulcer, stage II Current Visit: Yes Status: Acute Continue wound care. Recommend aggressive turning and offloading to prevent further skin breakdown. (5) CAD (coronary artery disease) Current Visit: Yes Status: Chronic Qualifiers: Coronary Disease-Associated Artery/Lesion type: unspecified vessel or lesion type [place] vs. transplanted heart: [place] heart Associated angina: angina presence unspecified Qualified Code(s): I25.10 - Atherosclerotic heart disease of [place] coronary artery without angina pectoris (6) CKD stage 4 due to type 2 diabetes mellitus Current Visit: No Status: Chronic Continue to monitor serum creatinine closely. Dose-adjust antibiotics. - Subjective Interval history: Patient seen and examined. No acute events noted overnight. Patient resting quietly in bed. Denies chest pain, shortness of breath, or cough. Denies nausea , vomiting, diarrhea, or constipation. She reports some lower abdominal cramping and gas like she is going to have a BM. She has an indwelling clarke catheter that remains patent with clear yellow urine. Denies abdominal or back pain. Complains of RLE pain with movement. Denies oral thrush. Infect Dis PN-Objective Data - Labs CBC & Chem 7: 03/27/17 08:34 03/27/17 08:34 Labs: Laboratory Results - last 24 hr 03/27/17 03/27/17 03/27/17 07:52 11:33 13:41 POC Glucose 143 H 171 H Ur Specimen Adequacy See below A Urine Color Yellow Urine Clarity Cloudy A Urine pH 6.0 Ur Specific [place] 1.020 Urine Protein 100 H Urine Glucose (UA) Normal Urine Ketones Negative Urine Blood Negative Urine Nitrite Negative Urine Bilirubin Negative Urine Urobilinogen Normal Ur Leukocyte Esterase Large H Urine Microscopic RBC Test Not Performed Urine Microscopic WBC TNTC H Ur Squamous Epith Cells Many H Ur Transition Epith Cell Few Ur Renal Epithelial Cell Few Urine Bacteria None Seen Hyaline Casts None Seen Urine Yeast Many H Ur Culture Indicated? YES A 03/27/17 03/27/17 16:35 20:39 POC Glucose 164 H 178 H Ur Specimen Adequacy Urine Color Urine Clarity Urine pH Ur Specific [place] Urine Protein Urine Glucose (UA) Urine Ketones Urine Blood Urine Nitrite Urine Bilirubin Urine Urobilinogen Ur Leukocyte Esterase Urine Microscopic RBC Urine Microscopic WBC Ur Squamous Epith Cells Ur Transition Epith Cell Ur Renal Epithelial Cell Urine Bacteria Hyaline Casts Urine Yeast Ur Culture Indicated? Cultures: Cultures 03/26/17 11:40 Blood Culture - Preliminary Peripheral Venipuncture No growth. 03/26/17 11:40 Blood Culture - Preliminary Peripheral Venipuncture No growth. Serology 03/27/17 Range/Units 13:41 Ur Specimen Adequacy See below A Urine Color Yellow (Yellow) Urine Clarity Cloudy A (Clear) Urine pH 6.0 (5.0-8.0) pH Units Ur Specific [place] 1.020 (1.010-1.025) Urine Protein 100 H (Neg-Trace) mg/dL Urine Glucose (UA) Normal (Normal) mg/dL Urine Ketones Negative (Negative) mg/dL Urine Blood Negative (Negative) Urine Nitrite Negative (Negative) Urine Bilirubin Negative (Negative) Urine Urobilinogen Normal (Normal) mg/dL Ur Leukocyte Esterase Large H (Negative) Urine Microscopic RBC Test Not Performed Urine Microscopic WBC TNTC H (0-3) per hpf Ur Squamous Epith Cells Many H (None-Few) per lpf Ur Transition Epith Cell Few (None-Few) per hpf Ur Renal Epithelial Cell Few (None-Few) per hpf Urine Bacteria None Seen (None-Few) per hpf Hyaline Casts None Seen (None-Few) per lpf Urine Yeast Many H (None Seen) per hpf Ur Culture Indicated? YES A (NO) Exam - Constitutional Vitals: Temp Pulse Resp BP Pulse Ox 97.5 F L 81 18 156/58 98 03/28/17 11:31 03/28/17 11:31 03/28/17 11:31 03/28/17 11:31 03/28/17 11:31 General appearance: cooperative, no acute distress, obese - Head Head exam: Present: atraumatic, normal inspection, normocephalic - Eye Eye exam: Present: EOMI, normal appearance, PERRL Pupils: Present: normal accommodation - ENT ENT exam: Present: mucous membranes moist - Neck Neck exam: Present: normal inspection - Respiratory Respiratory exam: Present: CTAB. Absent: rales, respiratory distress, rhonchi, wheezes - Cardiovascular Cardiovascular exam: Present: RRR, +S1, +S2 - GI/Abdominal GI/Abdominal exam: Present: distended (obese), normal bowel sounds, soft. Absent: tenderness Additional comments: Clarke catheter noted to be draining clear yellow urine. - Extremities Exam Extremities exam: Present: pedal edema (1+ BLE), tenderness (RLE). Absent: joint swelling Additional comments: RLE deformity noted. - Neurological Exam Neurological exam: Present: alert, oriented X3, no focal deficits - Psychiatric Psychiatric exam: Present: normal affect, normal mood - Skin Skin exam: Present: dry, intact, normal color, warm - VTE Documentation of Mechanical Device: Intermittent pneumatic compression device Consult Discharge Plan - Plan Additional Instructions: F/up with PCP in 1-2 weeks Needs close monitoring of renal function and Gentamicin levels until antibiotics are completed; Referrals: Salazar Oates MD [Primary Care Provider] - (PT IS FROM [facility], NO PCP APPOINTMENT IS NEEDED) Prescriptions: Ampicillin 1,000 mg IV Q6HR 12 Days Gentamicin 120 mg IV DAILY 12 Days
[2017-03-28 16:23] VITALS: BP 173/62
[2017-03-28] MEDS: Gentamicin 120 MG in 0.9 % Sodium Chloride 100 ML IVPB SCH (17:18)
[2017-03-28] MEDS: Furosemide 20 MG TABLET PO SCH (17:31)
[2017-03-28] MEDS ORDERED: Aminoglycoside Consult 1 EACH MC ONE (18:29)
[2017-03-29] MEDS ORDERED: Gentamicin 60 MG in 0.9 % Sodium Chloride 100 ML IVPB SCH (17:00)
== END 2017-03-28 18:30 | DRG 698 ==
LOC: 2NNU 09:26 → EMEROO 09:26 → SUATTDRO 12:38 → 2NNU 12:53
PROVIDERS: ADMIT Internal Medicine; ATTEND Internal Medicine